=== PATIENT | female | born 1955 ===

== ENCOUNTER 2020-02-12 10:37 | Emergency (ER) | payer MEDICARE, MEDICAID, SELFPAY ==
[2020-02-12 10:50] VITALS: BP 105/61; BP 145/75; PULSE 67; PULSE 70; RESP 18; TEMP 37.1; O2SAT 100; O2SAT 97; BMI 76.7
--- NOTE | 2020-02-12 10:59 | ED_ITS ---
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) Duration: improved Location: generalized Migration: none Severity: moderate Relieving factors: none Exacerbating factors: none Associated symptoms: denies other symptoms Related Data Previous Rx's Medication Instructions Recorded cefuroxime axetil 500 mg PO BID 7 Days #14 tab 02/12/20 Allergies Allergy/AdvReac Type Severity Reaction Status Date / Time apple [Apple] Allergy Severe THROAT Verified 02/12/20 10:59 SWELLING pollen extracts [POLLEN] Allergy Intermediate SNEEZING Verified 02/12/20 10:59 COUGHING ALOT avocado [Avocado] AdvReac Unknown VOMITING Verified 02/12/20 10:59 kiwi AdvReac Unknown VOMITING Verified 02/12/20 10:59 [Kiwi (Actinidia Chinensis)] Review of Systems Review of Systems: Constitutional : No Weight loss, No Fever, No Chills, No Fatigue, No Malaise ENT/Mouth : No sore throat, No Rhinorrhea Eyes: No Eye Pain, No Swelling, No Redness Cardiovascular : No Chest Pain, No SOB, No Dyspnea on Exertion, No Orthopnea, No Edema, No Palpitations Respiratory : No Cough, No Sputum, No Wheezing Gastrointestinal : No Nausea, No Vomiting, No Diarrhea, No Constipation, No abdominal Pain, No Hematochezia, No Melena Genitourinary : No Dysuria, No Urinary Frequency, No Hematuria, Musculoskeletal : No joint pain, No Myalgias, No Joint Swelling Skin : No Skin Lesions, No rash Neuro : pos Weakness, No Numbness, No Dizziness, No Headache Psych : No Anxiety/Panic, No Depression Heme/Lymph: No Bruising, No Bleeding,No Lymphadenopathy Endocrine : No Polyuria, No Polydipsia All other systems reviewed and are negative [facility] Past Medical History Attestation statement: The following information was validated with the patient. Medical History (Updated 02/12/20 @ 14:34 by Elizabeth Young DO) Brain cancer DVT (deep venous thrombosis) HTN (hypertension) Seizure Surgical History (Updated 02/12/20 @ 11:10 by Elizabeth Young DO) H/O craniotomy Social History Social History (Updated 02/12/20 @ 11:10 by Elizabeth Young DO) Alcohol intake: never Smoking Status: Never smoker Use of substances other than those prescribed or required for medical reasons: No Advance Directives: No Advance Directives Information Provided: Yes Physical Exam Vital Signs: Vital Signs: Last Vital Signs Temp 98.8 F 02/12/20 10:50 Pulse 66 02/12/20 12:10 Resp 18 02/12/20 10:50 BP 109/76 02/12/20 12:10 Pulse Ox 100 02/12/20 10:50 Body Mass Index 76.7 Appearance: Alert. Oriented X3. No acute distress. Eyes: Pupils equal, round and reactive to light. ENT: Pharynx normal. Scars noted R side of head Neck: Normal inspection. Torticollis to R. CVS: Normal heart rate and rhythm. Pulses normal. Respiratory: No respiratory distress. Breath sounds normal. Abdomen: Soft and nontender. Skin: Skin warm and dry. Normal skin color. Normal skin turgor. Extremities: No lower extremity edema. No calf ttp Neuro: Oriented X 3. Mild chronic RUE and RLE weakness following her surgery per her reports. No sensory deficit. Course Course Course Narrative: patient with + orthostatic VS, will attempt to ambulate as well denied dizziness while standing has no new deficits she has very mild R sided UE and RLE weakness since her brain tumor per her, she notes this is not new, she also notes she suffers from torticollis since surgery overall the patient is much better, steady gait at her baseline, no complaints will give additional 500cc fluid + UA given ceftriaxone but no fevers, no vomiting, no WBC count MDM - Weakness MDM Narrative Medical decision making narrative: 64 yo female hx of HTN, DVT, brain cancer s/p chemo and radiation here with reported diffuse weakness will need labs, CT head for ICH, EKG, UA, dispo per results and findings. denies symptoms at this time. Lab Data Result diagrams: 02/12/20 11:34 02/12/20 11:34 Labs: Lab Results 02/12/20 02/12/20 02/12/20 Range/Units 11:22 11:34 11:34 WBC 7.2 (4.8-10.8) X10*3/uL RBC 4.92 (4.20-5.50) X10*6/uL Hgb 13.4 (12.0-16.0) g/dl Hct 42.4 (37-47) % MCV 86.2 (80-98) fL MCH 27.2 (27.0-33.0) pg MCHC 31.6 (31.0-35.0) g/dl RDW 13.4 (11.0-16.0) % Plt Count 275 (160-400) X10*3/uL MPV 10.0 (9.4-12.3) fL Immature Gran % (Auto) 0.1 (0.0-0.4) % Neut % (Auto) 68.3 (45-73) % Lymph % (Auto) 20.8 (20-40) % Haywood % (Auto) 7.7 (2-11) % Eos % (Auto) 2.5 (0-4) % Baso % (Auto) 0.6 (0-2) % Lymph # (Auto) 1.5 (1.2-4.9) X10*3/uL Haywood # (Auto) 0.6 (0.1-1.2) X10*3/uL Eos # (Auto) 0.2 (0.0-0.4) X10*3/uL Baso # (Auto) 0.0 (0.0-0.2) X10*3/uL Abs Immat Gran (auto) 0.01 (0.00-0.03) X10*3/uL Absolute Neuts (auto) 4.9 (2.0-8.3) X10*3/uL Absolute Nucleated RBC 0.000 (0.0-0.012) X10*3/uL Nucleated RBC % (auto) 0.0 (0.0-0.2) /100WBC PT 14.8 H (10.8-13.0) SEC INR 1.2 H (0.9-1.1) APTT 30.4 (24.1-38.0) SEC Hold Blue Top SEE NOTE Sodium (135-145) mmol/L Potassium (3.3-5.1) mmol/l Chloride (96-108) mmol/L Carbon Dioxide (22-29) mmol/L Anion Gap (12-20) BUN (9-16) mg/dL Creatinine (0.5-1.4) mg/dL Estim Creat Clear Calc Estimated GFR Random Glucose (60-115) mg/dL Calcium (8.4-10.2) mg/dL Magnesium (1.6-2.6) mg/dL Total Bilirubin (0.0-1.0) mg/dL Direct Bilirubin (0.0-0.5) mg/dL AST (5-31) U/L ALT (0-31) U/L Alkaline Phosphatase (39-117) U/L Troponin I High Sens (<3.5-17.0) ng/L Total Protein (6.5-8.0) g/dL Albumin (3.5-5.0) g/dL Urine Color Urine Appearance Urine pH (5.0-8.0) Ur Specific Somers (1.005-1.025) Urine Protein (NEG-TRACE) MG/DL Urine Glucose (UA) (NEG) MG/DL Urine Ketones (NEG) MG/DL Urine Blood (NEG) Urine Nitrite (NEG) Ur Leukocyte Esterase (NEG) Urine RBC (0) /HPF Urine WBC (0-4) /HPF Ur Squamous Epith Cells /LPF Urine Bacteria /LPF COVID-19 (JURGEN) Negative (Negative) COVID-19 Clin Com See Note 02/12/20 02/12/20 02/12/20 Range/Units 11:34 11:34 13:56 WBC (4.8-10.8) X10*3/uL RBC (4.20-5.50) X10*6/uL Hgb (12.0-16.0) g/dl Hct (37-47) % MCV (80-98) fL MCH (27.0-33.0) pg MCHC (31.0-35.0) g/dl RDW (11.0-16.0) % Plt Count (160-400) X10*3/uL MPV (9.4-12.3) fL Immature Gran % (Auto) (0.0-0.4) % Neut % (Auto) (45-73) % Lymph % (Auto) (20-40) % Haywood % (Auto) (2-11) % Eos % (Auto) (0-4) % Baso % (Auto) (0-2) % Lymph # (Auto) (1.2-4.9) X10*3/uL Haywood # (Auto) (0.1-1.2) X10*3/uL Eos # (Auto) (0.0-0.4) X10*3/uL Baso # (Auto) (0.0-0.2) X10*3/uL Abs Immat Gran (auto) (0.00-0.03) X10*3/uL Absolute Neuts (auto) (2.0-8.3) X10*3/uL Absolute Nucleated RBC (0.0-0.012) X10*3/uL Nucleated RBC % (auto) (0.0-0.2) /100WBC PT (10.8-13.0) SEC INR (0.9-1.1) APTT (24.1-38.0) SEC Hold Blue Top Sodium 142 (135-145) mmol/L Potassium 3.4 (3.3-5.1) mmol/l Chloride 102 (96-108) mmol/L Carbon Dioxide 35 H (22-29) mmol/L Anion Gap 8 L (12-20) BUN 11 (9-16) mg/dL Creatinine 0.82 (0.5-1.4) mg/dL Estim Creat Clear Calc 140.3 Estimated GFR > 60 Random Glucose 105 (60-115) mg/dL Calcium 8.7 (8.4-10.2) mg/dL Magnesium 2.1 (1.6-2.6) mg/dL Total Bilirubin 0.4 (0.0-1.0) mg/dL Direct Bilirubin 0.2 (0.0-0.5) mg/dL AST 13 (5-31) U/L ALT 10 (0-31) U/L Alkaline Phosphatase 75 (39-117) U/L Troponin I High Sens 3.8 (<3.5-17.0) ng/L Total Protein 6.4 L (6.5-8.0) g/dL Albumin 3.5 (3.5-5.0) g/dL Urine Color YELLOW Urine Appearance CLOUDY Urine pH 6.5 (5.0-8.0) Ur Specific Somers 1.015 (1.005-1.025) Urine Protein NEG (NEG-TRACE) MG/DL Urine Glucose (UA) NEG (NEG) MG/DL Urine Ketones NEG (NEG) MG/DL Urine Blood TRACE (NEG) Urine Nitrite POS H (NEG) Ur Leukocyte Esterase 3+ H (NEG) Urine RBC 1-4 (0) /HPF Urine WBC TNTC H (0-4) /HPF Ur Squamous Epith Cells 1+ /LPF Urine Bacteria 3+ /LPF COVID-19 (JURGEN) (Negative) COVID-19 Clin Com Discharge Plan Discharge Clinical Impression: Acute UTI, Orthostatic hypotension Patient Disposition: Home, Self-Care Instructions: Urinary Tract Infection in Women (ED), Hypotension (ED) Additional Instructions: return to ED for any worsening symptoms or concerns GIVEN DOSE OF IV ANTIBIOTICS IN ED PLEASE DO NOT GIVE ANTIBIOTICS UNTIL THE AM, ENCOURAGE FLUIDS OVER THE NEXT FEW DAYS Prescriptions: New cefuroxime axetil 500 mg tablet 500 mg PO BID 7 Days Qty: 14 RF: 0 Referrals: Physician,Unknown [Primary Care Provider] - 2 days (family doctor on Monday if not better)
--- NOTE | 2020-02-12 11:02 | XR_ITS ---
EXAMINATION: XR CHEST CLINICAL INFORMATION: Weakness COMPARISON: Previous chest x-ray June 2019 TECHNIQUE: Frontal view of the chest was obtained. FINDINGS: The cardiac and mediastinal contours are normal. The lungs are clear. There is no pleural effusion or pneumothorax. There are degenerative changes of the spine. XR/XR chest 1V IMPRESSION: Unremarkable examination.
--- NOTE | 2020-02-12 11:02 | CT_ITS ---
EXAMINATION: CT HEAD WITHOUT CONTRAST CLINICAL INFORMATION: Diffuse weakness. COMPARISON: CT brain 03/07/2019 TECHNIQUE: Contiguous axial imaging was performed from the skull base to vertex without intravenous administration of contrast. This CT examination was performed using dose optimization techniques as appropriate, variously including the following: *Automated exposure control *Adjustment of mA and/or kV according to patient size (this includes techniques or standardized protocols for targeted exams where dose is matched to indication/reason for exam; i.e. extremities or head) *Use of iterative reconstruction technique DLP: 719 mGy-cm FINDINGS: Defect with a right frontal lobe encephalomalacia from old ischemic is changes there are surgical richard in this region as well. There is mild anterior midline shift. There is subtle area of hypodensity in the left frontal lobe deep white matter in the periventricular region likely encephalomalacia as well. Small lacunar infarct visualized in the left basal ganglia. There is no acute intracranial bleed, edema or mass. No acute infarct seen either. There is ex vacuole dilatation of bilateral frontal horns lateral ventricle. The third ventricle is slightly prominent. The fourth ventricle appears normal. Bone windows reveal no calvarial abnormality. There is benign frontalis hyperostosis interna. There is no scalp soft tissue abnormality. Bilateral mastoid sinuses and bilateral paranasal sinuses are widely patent. CT/CT head/brain wo con IMPRESSION: Right frontal craniotomy changes with bifrontal lobe encephalomalacia greater than right with mild midline shift to the left. There is ex vacuole dilatation of frontal horns lateral ventricles right slightly larger than left. Small lacunar infarct left basal ganglia is stable. There is no acute intra-axial, acute infarct or edema.
[2020-02-12 11:41] LABS: Basophils Percent Auto 0.6 % (0-2); Eosinophils Absolute Auto 0.2 X10*3/uL (0.0-0.4); Eosinophils Percent Auto 2.5 % (0-4); Hematocrit 42.4 % (37-47); Hemoglobin 13.4 g/dl (12.0-16.0); Imm Gran Abs Auto 0.01 X10*3/uL (0.00-0.03); Imm Gran Pct Auto 0.1 % (0.0-0.4); Lymphocytes Absolute Auto 1.5 X10*3/uL (1.2-4.9); Lymphocytes Percent Auto 20.8 % (20-40); Mean Corpuscular HGB Conc 31.6 g/dl (31.0-35.0); Mean Corpuscular Hemoglobin 27.2 pg (27.0-33.0); Mean Corpuscular Volume 86.2 fL (80-98); Monocytes Absolute Auto 0.6 X10*3/uL (0.1-1.2); Monocytes Percent Auto 7.7 % (2-11); Neutrophils Absolute Auto 4.9 X10*3/uL (2.0-8.3); Neutrophils Percent Auto 68.3 % (45-73); Platelet Count 275 X10*3/uL (160-400); Red Blood Count 4.92 X10*6/uL (4.20-5.50); Red Cell Distribution Width 13.4 % (11.0-16.0); White Blood Count 7.2 X10*3/uL (4.8-10.8)
[2020-02-12 11:42] LABS: MANUAL DIFF FLAG NO
[2020-02-12 11:52] LABS: INTERNATIONAL NORM RATIO 1.2 (0.9-1.1); Prothrombin Time 14.8 SEC (10.8-13.0)
[2020-02-12 11:54] LABS: Partial Thromboplastin Time 30.4 SEC (24.1-38.0)
[2020-02-12 11:55] LABS: COVID-19 Test Negative (Negative); IDNOW Serial# 9DD0AD1C
[2020-02-12] MEDS: 0.9 % Sodium Chloride 500 ML IV ×2 (12:06→14:02)
[2020-02-12 12:09] VITALS: BP 114/72; BP 126/78; PULSE 63; PULSE 77
[2020-02-12 12:10] VITALS: BP 109/76; PULSE 66
[2020-02-12 12:16] LABS: Alanine Aminotransferase 10 U/L (0-31); Albumin Level 3.5 g/dL (3.5-5.0); Alkaline Phosphatase 75 U/L (39-117); Aspartate Amino Transferase 13 U/L (5-31); Bilirubin Direct 0.2 mg/dL (0.0-0.5); Bilirubin Total 0.4 mg/dL (0.0-1.0); Blood Urea Nitrogen 11 mg/dL (9-16); Calcium 8.7 mg/dL (8.4-10.2); Creatinine Clr Calc Pharmacy 140.3; Estimated Glomerular Filt Rate > 60; Glucose Random 105 mg/dL (60-115); Magnesium 2.1 mg/dL (1.6-2.6); Total Protein 6.4 g/dL (6.5-8.0)
--- NOTE | 2020-02-12 12:17 | PC.NURSE ---
Patient a&ox3, neuro intact, passed swallow eval, pt sinus omar 60s on kiln firer helper, vitals stable, pt iv inserted, labs drawn, covid swab performed, pt had cxr and ct scan, ivf hanging per order, pt aware we need urine, will continue to monitor.
[2020-02-12 12:20] LABS: Troponin-I High Sensitivity 3.8 ng/L (<3.5-17.0)
[2020-02-12 12:26] LABS: Anion Gap 8 (12-20); Carbon Dioxide 35 mmol/L (22-29); Chloride 102 mmol/L (96-108); Potassium 3.4 mmol/l (3.3-5.1); Sodium 142 mmol/L (135-145)
[2020-02-12 14:14] LABS: Glucose Urine UA NEG (NEG); Leukocyte Esterase Urine 3+ (NEG); Nitrite Urine POS (NEG); PH 6.5 (5.0-8.0); Specific Gravity - Urine 1.015 (1.005-1.025); Urine Blood TRACE (NEG); Urine Ketones NEG (NEG); Urine Protein NEG (NEG-TRACE)
[2020-02-12 14:15] LABS: Appearance Urine CLOUDY; Color Urine YELLOW
[2020-02-12 14:24] LABS: Bacteria Urine 3+ /LPF; Squamous Epithelial Cell Urine 1+ /LPF; WBC Urine TNTC /HPF (0-4)
[2020-02-12] MEDS: cefTRIAXone sodium 1 GM in 0.9 % Sodium Chloride 50 ML IV (14:33)
--- NOTE | 2020-02-12 14:39 | PC.NURSE ---
patients daughter was called and told mother would be ready to go in about 30 minutes, she will come to pick her up.
[2020-02-12 14:49] VITALS: BP 116/67; PULSE 75; RESP 18; TEMP 36.6; O2SAT 98
--- NOTE | 2020-02-12 14:50 | PC.NURSE ---
patient a&ox3, quality assurance monitor chassis nsr 70s, pt medicated per order, will continue to monitor.
== END 2020-02-12 15:50 | disposition home or self-care (01) ==
PROVIDERS: Emergency Provider Emergency Medicine
DX: N39.0 Urinary tract infection, site not specified (principal); I95.1 Orthostatic hypotension; Z20.828 Contact with and (suspected) exposure to other viral communicable diseases; Z85.841 Personal history of malignant neoplasm of brain; Z86.718 Personal history of other venous thrombosis and embolism
CPT/HCPCS: 36415; 70450; 71045; 80048; 80076; 81001; 83735; 84484; 85025; 85610; 85730; 87086; 87088; 87186; 87635; 96361; 96365; 99285; J0696

== ENCOUNTER 2020-02-16 10:19 | Emergency (ER) | payer MEDICARE, MEDICAID, SELFPAY ==
[2020-02-16 10:45] VITALS: BP 118/72; BP 122/62; PULSE 70; PULSE 84; RESP 17; TEMP 36.8; O2SAT 96; O2SAT 99; BMI 28.8
--- NOTE | 2020-02-16 11:19 | CT_ITS ---
EXAMINATION: CT CERVICAL SPINE WITHOUT CONTRAST CLINICAL INFORMATION: Fall, neck pain. COMPARISON: None TECHNIQUE: CT cervical spine 07/03/2019. This CT examination was performed using dose optimization techniques as appropriate, variously including the following: *Automated exposure control *Adjustment of mA and/or kV according to patient size (this includes techniques or standardized protocols for targeted exams where dose is matched to indication/reason for exam; i.e. extremities or head) *Use of iterative reconstruction technique DLP: 436 mGy-cm FINDINGS: Patient's head is rotated to the right side likely from spasm or torticollis. There is straightening of cervical lordosis. The vertebral heights and alignment appears preserved. The craniovertebral junction and the C1-C2 alignment is normal. No acute fracture, lytic as per sclerotic process seen. There is mild degenerative disc changes C4-C5 disc level with moderate ventral and posterior spondylosis at C4-C5 and C5-C6 disc levels resulting in bilateral moderate narrowing of neural foramina. There is mild posterior spondylosis C3-C4 disc level. No disc bulge, herniation or spinal stenosis seen. At C4-C5 and C5-C6 disc levels with mild bilateral narrowing of neural foramina from uncovertebral hypertrophic changes. Mild posterior spondylosis without spinal canal stenosis seen. At C5-C6 disc level there is mild posterior spondylosis without spinal canal stenosis. There is mild bilateral Neural foramina from uncovertebral hypertrophic changes. The C6-C7 and C7-T1 disc levels are unremarkable. The thyroid lobes are symmetric and normal. The prevertebral and paravertebral soft tissues are normal. The airway is are widely patent. CT/CT cervical spine wo con IMPRESSION: Right neck spasm or torticollis resulting in rotation of neck and head to the right side. There is no visible acute fracture or dislocation. There are degenerative disc changes C4-C5 and C5-C6 disc levels with moderate ventral and posterior spondylosis. Bilateral narrowing of neural foramina noted at this disc levels.
--- NOTE | 2020-02-16 11:19 | XR_ITS ---
EXAMINATION: XR FOOT, RIGHT XR ANKLE, RIGHT XR KNEE, RIGHT CLINICAL INFORMATION: Fall out of bed COMPARISON: Right knee radiographs 10/28/2018 TECHNIQUE: AP and oblique views of the right foot, AP and oblique views of the right ankle, lateral view of the right ankle and foot AP and crosstable lateral views of the right knee FINDINGS: Foot: There is no evidence of acute fracture. No evidence of subluxation. Mild joint space narrowing involving the interphalangeal joints. Soft tissues are unremarkable. Ankle: There is an acute oblique fracture involving the lateral malleolus. This is minimally displaced. The fracture line extends from slightly proximal to the distal tibial-fibular syndesmosis to the level of the syndesmosis. The syndesmosis does not appear to be widened and the ankle mortise is congruent. No evidence of subluxation. The distal tibia appears to be intact. There is surrounding soft tissue swelling. Mild vascular calcifications are noted. Knee: No additional fractures are seen more proximally in the tibia and fibula and distal femur. The knee joint is intact. No subluxation. Redemonstration of lateral and patellofemoral compartment osteoarthritis. No significant knee effusion is appreciated. Soft tissues are unremarkable. XR/XR ankle RT 2V IMPRESSION: Acute minimally displaced [place] B oblique fracture of the lateral malleolus. The distal tibial-fibular syndesmosis does not appear to be widened and the ankle mortise appears congruent on this nonweightbearing view. No evidence of acute fracture or malalignment involving the right foot and right knee. Degenerative changes in the right knee.
--- NOTE | 2020-02-16 11:19 | XR_ITS ---
EXAMINATION: XR FOOT, RIGHT XR ANKLE, RIGHT XR KNEE, RIGHT CLINICAL INFORMATION: Fall out of bed COMPARISON: Right knee radiographs 10/28/2018 TECHNIQUE: AP and oblique views of the right foot, AP and oblique views of the right ankle, lateral view of the right ankle and foot AP and crosstable lateral views of the right knee FINDINGS: Foot: There is no evidence of acute fracture. No evidence of subluxation. Mild joint space narrowing involving the interphalangeal joints. Soft tissues are unremarkable. Ankle: There is an acute oblique fracture involving the lateral malleolus. This is minimally displaced. The fracture line extends from slightly proximal to the distal tibial-fibular syndesmosis to the level of the syndesmosis. The syndesmosis does not appear to be widened and the ankle mortise is congruent. No evidence of subluxation. The distal tibia appears to be intact. There is surrounding soft tissue swelling. Mild vascular calcifications are noted. Knee: No additional fractures are seen more proximally in the tibia and fibula and distal femur. The knee joint is intact. No subluxation. Redemonstration of lateral and patellofemoral compartment osteoarthritis. No significant knee effusion is appreciated. Soft tissues are unremarkable. XR/XR foot RT min 3V IMPRESSION: Acute minimally displaced [place] B oblique fracture of the lateral malleolus. The distal tibial-fibular syndesmosis does not appear to be widened and the ankle mortise appears congruent on this nonweightbearing view. No evidence of acute fracture or malalignment involving the right foot and right knee. Degenerative changes in the right knee.
--- NOTE | 2020-02-16 11:22 | ED.FALL ---
HPI - Fall General Chief Complaint: Fall Stated Complaint: fell yesterday, right knee pain Time Seen by Provider: 02/16/20 11:18 Source: patient and EMS Mode of arrival: EMS History of Present Illness HPI Narrative: 64 yo female hx of HTN, DVT, brain cancer s/p chemo and radiation presenting to the ED complaining of fall out of bed yesterday on right side. States right ankle/foot pain. Admits got out of bed alone due to [employer] being in the kitchen and reports she didn't want to wait for the help. Denies head trauma or LOC. denies taking anticoagulation. Also reports neck pain. Denies lightheadedness/dizziness, CP/SOB, abdominal pain, nausea/vomiting, numbness/tingling, weakness. Denies symptoms prior to fall Related Data Previous Rx's Medication Instructions Recorded cefuroxime axetil 500 mg PO BID 7 Days #14 tab 02/12/20 hydrocodone-acetaminophen [[place]] 1 tab PO Q6H PRN 3 Days #9 tab 02/16/20 Allergies Allergy/AdvReac Type Severity Reaction Status Date / Time apple [Apple] Allergy Severe THROAT Verified 02/12/20 10:59 SWELLING pollen extracts [POLLEN] Allergy Intermediate SNEEZING Verified 02/12/20 10:59 COUGHING ALOT avocado [Avocado] AdvReac Unknown VOMITING Verified 02/12/20 10:59 kiwi AdvReac Unknown VOMITING Verified 02/12/20 10:59 [Kiwi (Actinidia Chinensis)] Review of Systems Review of Systems: Constitutional: No Weight loss, No Fever, No Chills Eyes: No Eye Pain, No Swelling, No Redness, No Foreign Body, No Vision Changes Cardiovascular: No Chest Pain, No SOB Respiratory: No Cough, No Dyspnea Gastrointestinal: No Nausea, No Vomiting, No Diarrhea, No Constipation, No Abdominal pain Genitourinary: No irregular bleeding, No Dysuria Musculoskeletal: +R foot pain, +neck pain, No Myalgias, No Joint Swelling Skin: No Skin Lesions, No rash Neuro: No Weakness, No Numbness, No Paresthesias, No Loss of Consciousness, No Dizziness, No Headache Yes all other systems are reviewed and are negative [facility] Past Medical History Attestation statement: The following information was validated with the patient. Medical History (Updated 02/16/20 @ 14:32 by BEVERLY Banks) Brain cancer DVT (deep venous thrombosis) HTN (hypertension) Seizure Surgical History (Updated 02/12/20 @ 11:10 by Elizabeth Young DO) H/O craniotomy Social History Social History (Updated 02/12/20 @ 11:10 by Elizabeth Young DO) Alcohol intake: never Smoking Status: Never smoker Use of substances other than those prescribed or required for medical reasons: No Advance Directives: No Advance Directives Information Provided: No Physical Exam Vital Signs: Vital Signs: Last Vital Signs Temp 98.4 F 02/16/20 13:15 Pulse 70 02/16/20 13:15 Resp 16 02/16/20 13:15 BP 132/68 02/16/20 13:15 Pulse Ox 99 02/16/20 13:15 Body Mass Index 28.8 Const: General: cooperative and healthy appearing Orientation/consciousness: patient oriented x3 Limitations: no limitations HENMT: Head: Yes normal to inspection Ears: hearing grossly normal bilaterally General nose exam: Normal external nose present Face and sinus: Yes normal facial exam Mouth: Normal oral and palatal mucosa present Throat: Yes posterior oropharynx normal Eyes: General: appearance normal, both eyes and all related structures Pupils: Equal, round and reactive pupils present EOM: EOMs intact bilaterally Neck: Other: + mid midline cervical spinous tenderness, + right-sided paraspinal MSK tenderness. No step-off or deformity appreciated. Chronic torticollis Neck: Yes normal visual inspection, Yes no meningeal signs and Yes trachea midline Resp: Effort & Inspection: normal respiratory effort Auscultation: clear to auscultation bilaterally Cardio: Rate: regular rate Heart sounds: S1 normal heart sound present and S2 normal heart sound present GI: Inspection: Yes normal to inspection Palpation (GI): Soft to palpation, nontender, no guarding and not rigid Back/Spine/Pelvis: Other: No midline thoracic/lumbar spinous tenderness Skin: Rashes: no rashes Wounds: no wounds Neuro: General: patient oriented x3, tone normal, moves all extremities, no meningeal signs, no focal motor deficits and CN's II-XI intact bilaterally Cranial nerves: Yes Equal, round and reactive pupils present Extrem: Other: Right knee with mild swelling, nontender. Limited complete flexion. Right ankle mild swelling and tenderness to palpation greater to lateral aspect. Neurovascular intact. Sensation intact to light touch Pelvis stable/hips nontender General: Yes normal to inspection Course Course Course Narrative: X-ray showing acute minimally displaced [place] B oblique fracture of the lateral malleolus. The distal tibial-fibular syndesmosis does not appear to be widened and the ankle mortise appears congruent on this nonweightbearing view >> will place patient in a posterior splint to be nonweightbearing to follow-up with orthopedics in a few days. Both patient and daughter report she has a wheelchair at home. Patient lives at home with and daughter, has 24 hour care, would like to go home. Does not want to go to snf C-spine CT: Right neck spasm or torticollis resulting in rotation of neck and head to the right side. There is no visible acute fracture or dislocation. Spoke to patient's daughter rojelio, informed of results and need for close follow-up with Orthopedics. She verbalized understanding MDM - Fall MDM Narrative Medical decision making narrative: 64 yo female hx of HTN, DVT, brain cancer s/p chemo and radiation here presenting to the ED complaining of right ankle/foot pain s/p fall out of bed yesterday. On exam VSS, NAD, a midline cervical spinous tenderness appreciated with paraspinal tenderness. Right ankle/foot with swelling/tenderness. No focal neuro deficits. Concern for fracture versus dislocation. Low concern for ACS/ICH Plan: Cervical spine CT, x-rays, orthostatics, reassess Discharge Plan Discharge Clinical Impression: Fracture of lateral malleolus Qualifiers: Encounter type: initial encounter Fracture type: closed Fracture alignment: displaced Laterality: right Qualified Code(s): S82.61XA - Displaced fracture of lateral malleolus of right fibula, initial encounter for closed fracture Fall Qualifiers: Encounter type: initial encounter Qualified Code(s): W19.XXXA - Unspecified fall, initial encounter Patient Disposition: Home, Self-Care Instructions: Ankle Fracture (ED) Additional Instructions: YOU HAVE BROKEN ANKLE. YOU WERE PLACED IN A SPLINT TODAY IN THE ED KEEP DRY AND CLEAN DO NOT BEAR ANY WEIGHT ON YOUR RIGHT LEG YOU NEED TO SEE THE ORTHOPEDIC SURGEON WITHIN THE NEXT 3-5 DAYS TAKE TYLENOL AROUND THE CLOCK, IN ADDITION ICE AND ELEVATE HER LEG NORCO AN OPIATE PAIN MEDICATION, TAKE ONLY WHEN PAIN IS SEVERE FOR THE NEXT 3 DAYS IF YOUR LEG BECOMES UNBEARABLE PAINFUL, TOES CHANGE COLOR, OR BECOME NUMB REMOVE THE SPLINT AND RETURN TO THE ED Prescriptions: New hydrocodone-acetaminophen [[place]cel[place]] 5-325 mg tablet 1 tab PO Q6H PRN (Reason: pain) 3 Days Qty: 9 RF: 0 No Action cefuroxime axetil 500 mg tablet 500 mg PO BID 7 Days Qty: 14 RF: 0 Referrals: Travon Herrera MD [Physician] - 3 days
--- NOTE | 2020-02-16 11:35 | XR_ITS ---
EXAMINATION: XR FOOT, RIGHT XR ANKLE, RIGHT XR KNEE, RIGHT CLINICAL INFORMATION: Fall out of bed COMPARISON: Right knee radiographs 10/28/2018 TECHNIQUE: AP and oblique views of the right foot, AP and oblique views of the right ankle, lateral view of the right ankle and foot AP and crosstable lateral views of the right knee FINDINGS: Foot: There is no evidence of acute fracture. No evidence of subluxation. Mild joint space narrowing involving the interphalangeal joints. Soft tissues are unremarkable. Ankle: There is an acute oblique fracture involving the lateral malleolus. This is minimally displaced. The fracture line extends from slightly proximal to the distal tibial-fibular syndesmosis to the level of the syndesmosis. The syndesmosis does not appear to be widened and the ankle mortise is congruent. No evidence of subluxation. The distal tibia appears to be intact. There is surrounding soft tissue swelling. Mild vascular calcifications are noted. Knee: No additional fractures are seen more proximally in the tibia and fibula and distal femur. The knee joint is intact. No subluxation. Redemonstration of lateral and patellofemoral compartment osteoarthritis. No significant knee effusion is appreciated. Soft tissues are unremarkable. XR/XR knee RT 2V IMPRESSION: Acute minimally displaced [place] B oblique fracture of the lateral malleolus. The distal tibial-fibular syndesmosis does not appear to be widened and the ankle mortise appears congruent on this nonweightbearing view. No evidence of acute fracture or malalignment involving the right foot and right knee. Degenerative changes in the right knee.
--- NOTE | 2020-02-16 13:10 | PC.NURSE ---
pt's daughter rojelio ([phone]) called [facility] [place] and was updated on pt status.
[2020-02-16 13:15] VITALS: BP 132/68; PULSE 70; RESP 16; TEMP 36.9; O2SAT 99
[2020-02-16] MEDS: Acetaminophen 325 MG TABLET 650 MG PO (13:31)
[2020-02-16] MEDS: oxyCODONE HCl Immed Release 5 MG TABLET PO (13:31)
--- NOTE | 2020-02-16 14:35 | PC.NURSE ---
5 inch fiberglass posterior leg splint. applied to right leg. +cms
[2020-02-16 14:48] VITALS: BP 130/67; PULSE 67; RESP 81; O2SAT 98
== END 2020-02-16 15:36 | disposition home or self-care (01) ==
PROVIDERS: Emergency Provider Emergency Medicine Emergency Medical Services
DX: S82.61XA Displaced fracture of lateral malleolus of right fibula, initial encounter for closed fracture (principal); M25.561 Pain in right knee; M54.2 Cervicalgia; W01.0XXA Fall on same level from slipping, tripping and stumbling without subsequent striking against object, initial encounter; Y93.9 Activity, unspecified; Y92.003 Bedroom of unspecified non-institutional (private) residence as the place of occurrence of the external cause; Y99.9 Unspecified external cause status; Z79.899 Other long term (current) drug therapy; Z86.718 Personal history of other venous thrombosis and embolism
CPT/HCPCS: 29505; 72125; 73560; 73600; 73630; 99284

== ENCOUNTER 2020-03-03 11:46 | Outpatient (REF) | payer MEDICARE, MEDICAID, SELFPAY ==
--- NOTE | 2020-03-03 14:24 | XR_ITS ---
EXAMINATION: XR ANKLE, RIGHT CLINICAL INFORMATION: Fracture COMPARISON: Previous x-ray 02/16/2020 TECHNIQUE: AP, lateral, and mortise views of the right ankle. FINDINGS: There is an oblique fracture of the distal shaft of fibula. There is minimal 2 mm lateral displacement of the lateral malleolus with respect to the more proximal shaft. This is unchanged. Fracture line appears unchanged. No periosteal reaction is seen. No other fracture is seen. The ankle mortise is normal. Soft tissues are normal. XR/XR ankle RT min 3V IMPRESSION: No change in the oblique fracture of the distal fibular shaft from previous exam.
== END 2020-03-03 11:47 | disposition home or self-care (01) ==
LOC: HO.HOSX 11:46
PROVIDERS: Visit Provider Physician Assistant
DX: S82.831A Other fracture of upper and lower end of right fibula, initial encounter for closed fracture (principal)
CPT/HCPCS: 73610; 99202

== ENCOUNTER 2020-04-01 08:54 | Outpatient (REF) | payer MEDICARE, MEDICAID, SELFPAY ==
--- NOTE | ~2020-04-01 | XR_ITS ---
EXAMINATION: XR ANKLE, RIGHT CLINICAL INFORMATION: Fracture COMPARISON: Previous x-ray 03/03/2020 TECHNIQUE: AP, lateral, and mortise views of the right ankle. FINDINGS: There is an oblique fracture of the distal shaft of the fibula. There is slight 2 mm lateral displacement of the lateral malleolus with respect to the more proximal shaft. Alignment is unchanged. Fracture line is still seen without evidence of healing. The ankle mortise is normal. There is soft tissue arterial calcification. Soft tissues are otherwise normal. XR/XR ankle RT min 3V IMPRESSION: No change in right distal fibular shaft fracture.
== END 2020-04-01 08:55 | disposition home or self-care (01) ==
LOC: HO.HOSX 08:54
PROVIDERS: Visit Provider Physician Assistant
DX: S82.401D Unspecified fracture of shaft of right fibula, subsequent encounter for closed fracture with routine healing (principal); X58.XXXD Exposure to other specified factors, subsequent encounter; I10 Essential (primary) hypertension; J30.1 Allergic rhinitis due to pollen; Z91.018 Allergy to other foods
CPT/HCPCS: 73610; 99212

== ENCOUNTER 2020-04-29 08:30 | Outpatient (REF) | payer MEDICARE, MEDICAID, SELFPAY ==
--- NOTE | ~2020-04-29 | XR_ITS ---
EXAMINATION: XR ANKLE, RIGHT CLINICAL INFORMATION: Fibular fracture. Follow-up COMPARISON: Radiographs right ankle 04/01/2020, 03/03/2020 TECHNIQUE: AP, lateral, and mortise views of the right ankle. FINDINGS: There is an oblique fracture distal fibula. Fracture lines are still visible. No change in alignment. No new fracture or destructive process. Ankle mortise is symmetric. XR/XR ankle RT min 3V IMPRESSION: No change in alignment distal fibular fracture. Fracture line still visible.
== END 2020-04-29 08:31 | disposition home or self-care (01) ==
LOC: HO.HOSX 08:30
PROVIDERS: Visit Provider Physician Assistant
DX: S82.61XD Displaced fracture of lateral malleolus of right fibula, subsequent encounter for closed fracture with routine healing (principal)
CPT/HCPCS: 73610; 99212

== ENCOUNTER 2020-05-11 14:18 | Outpatient (REF) | payer MEDICARE, MEDICAID, SELFPAY | END 2020-05-11 14:19 | disposition home or self-care (01) | LOC: HO.MAMMO 14:18 | DX: Z13.89 Encounter for screening for other disorder (principal) ==

== ENCOUNTER → 2020-05-12 12:52 | Outpatient (BNVA) | payer MEDICARE, MEDICAID, SELFPAY | PROVIDERS: PCP Hospitalist; Visit Provider Internal Medicine Pulmonary Disease | DX: G47.33 Obstructive sleep apnea (adult) (pediatric) (principal); G47.00 Insomnia, unspecified; Z99.89 Dependence on other enabling machines and devices | CPT/HCPCS: 99212 ==

== ENCOUNTER 2020-06-19 11:40 | Emergency (ER) | payer MEDICARE, MEDICAID, SELFPAY ==
[2020-06-19 12:37] VITALS: BP 109/64; PULSE 77; RESP 18; TEMP 37; O2SAT 98; BMI 32.3
[2020-06-19 14:52] VITALS: BP 107/65; PULSE 87; RESP 16; TEMP 36.3; O2SAT 99
[2020-06-19] MEDS: Lidocaine HCl 1 % MPF 5 ML VIAL SUBCUT (15:45)
--- NOTE | 2020-06-19 16:39 | ED.WOUNDLAC ---
HPI - Wound/Laceration General Chief Complaint: Wound/Laceration Stated Complaint: CYST Time Seen by Provider: 06/19/20 15:32 History of Present Illness HPI narrative: Patient complains of left pubic area abscess which had gotten swollen and then yesterday started draining and has since shrunk, no fever no chills Related Data Previous Rx's Medication Instructions Recorded amlodipine 5 mg tablet 5 mg PO DAILY 30 Days #30 tab 04/10/20 hydrochlorothiazide 25 mg tablet 25 mg PO DAILY 90 Days #90 tab 04/17/20 atorvastatin 40 mg tablet 40 mg PO DAILY 30 Days #30 tab 04/22/20 aspirin 81 mg tablet,delayed 81 mg PO DAILY #30 tab 05/06/20 release rivaroxaban 20 mg tablet 20 mg PO BEDTIME #30 tab 05/06/20 doxycycline hyclate 100 mg PO BID 7 Days #14 cap 06/19/20 Allergies Allergy/AdvReac Type Severity Reaction Status Date / Time apple [Apple] Allergy Severe THROAT Verified 06/19/20 12:37 SWELLING pollen extracts [POLLEN] Allergy Intermediate SNEEZING Verified 06/19/20 12:37 COUGHING ALOT kiwi AdvReac Intermediate VOMITING Verified 06/19/20 12:37 [Kiwi (Actinidia Chinensis)] avocado [Avocado] AdvReac Mild VOMITING Verified 06/19/20 12:37 Review of Systems Review of Systems: Left pubic area abscess Negatives are no fever no chills no dizziness no weakness no headache no chest pain no abdominal pain no dysuria no nausea or vomiting Yes all other systems are reviewed and are negative PMFSH Past Medical History Source: nursing notes reviewed Medical History Brain cancer DVT (deep venous thrombosis) HTN (hypertension) Seizure Surgical History H/O craniotomy Social History Social History Alcohol intake: never Smoking Status: Never smoker Advance Directives: No Advance Directives Information Provided: Yes Current occupation: right handed Physical Exam Vital Signs: Vital Signs: Last Vital Signs Temp 97.4 F 06/19/20 14:52 Pulse 87 06/19/20 14:52 Resp 16 06/19/20 14:52 BP 107/65 06/19/20 14:52 Pulse Ox 99 06/19/20 14:52 Body Mass Index 32.3 General appearance no distress, A&O x3 Head is normocephalic atraumatic The neck is supple Respiratory no distress Abdomen soft nontender Exam of the groin showed a small opening draining pus with some tenderness and induration, there is no significant surrounding erythema Extremities full range of motion x4 Course Course Course Narrative: Procedure note left pubic abscess Indurated area left pubic area with a small opening draining pus is anesthetized with 6 cc of 1% lidocaine, cleansed with Betadine A 1 cm incision with an 11 blade was created and loculations were probed and there was a discharge of some pus and packing was placed Patient tolerated this well and was discharged Discharge Plan Discharge Clinical Impression: Abscess Patient Disposition: Home, Self-Care Additional Instructions: I enlarged the opening which was draining some pus so it can fully drain and placed some packing Return in 2 days for wound check packing removal Return any time for fever, chills, worse pain and swelling, any worse condition or any concerns Prescriptions: New doxycycline hyclate 100 mg capsule 100 mg PO BID 7 Days Qty: 14 RF: 0 No Action amlodipine 5 mg tablet 5 mg PO DAILY 30 Days Qty: 30 RF: 0 hydrochlorothiazide 25 mg tablet 25 mg PO DAILY 90 Days Qty: 90 RF: 3 atorvastatin 40 mg tablet 40 mg PO DAILY 30 Days Qty: 30 RF: 5 rivaroxaban [Xarelto] 20 mg tablet 20 mg PO BEDTIME Qty: 30 RF: 2 aspirin 81 mg tablet,delayed release (DR/EC) 81 mg PO DAILY Qty: 30 RF: 2 Interventions: ED Discharge Assessment Last Done: 06/19/20 17:28 Discharge Date/Time: 06/19/20 16:45
== END 2020-06-19 16:45 | disposition home or self-care (01) ==
PROVIDERS: Emergency Provider Emergency Medicine; PCP Hospitalist
DX: L02.214 Cutaneous abscess of groin (principal); I10 Essential (primary) hypertension; Z86.718 Personal history of other venous thrombosis and embolism; Z85.841 Personal history of malignant neoplasm of brain
CPT/HCPCS: 10060; 99284

== ENCOUNTER 2020-07-06 10:39 | Emergency (ER) | payer MEDICARE, MEDICAID, SELFPAY ==
--- NOTE | ~2020-07-06 | CT_ITS ---
EXAMINATION: CT ANGIOGRAM OF THE CHEST WITH AND WITHOUT CONTRAST (CT PULMONARY ANGIOGRAM FOR PE) CLINICAL INFORMATION: Reason for Exam pt c fall c dizzines, dry cough and sob hx of cancer COMPARISON: Previous chest x-ray most recent January 2020 and chest CTA September 2018 TECHNIQUE: Prior to contrast administration, noncontrast localization images were obtained. Subsequently, multidetector volumetric imaging was performed from the thoracic inlet to below the diaphragms following the administration of 130 mL Omnipaque 350 intravenous contrast. No contrast reaction reported Sagittal, coronal, and MIP oblique sagittal reformatted images were obtained on the CT workstation, uploaded to PACS, and reviewed. This CT examination was performed using dose optimization techniques as appropriate, variously including the following: *Automated exposure control *Adjustment of mA and/or kV according to patient size (this includes techniques or standardized protocols for targeted exams where dose is matched to indication/reason for exam; i.e. extremities or head) *Use of iterative reconstruction technique Total exam dose-length product 1813 mGy-cm FINDINGS: QUALITY OF STUDY/CONTRAST BOLUS: Satisfactory. PULMONARY ARTERIES: No central or segmental pulmonary emboli. THORACIC AORTA: No aneurysm or dissection. LUNG: No focal consolidation, nodules or masses. PLEURA: No pleural effusion or pneumothorax. MEDIASTINUM: Normal heart size. No pericardial effusion. No hilar or mediastinal lymphadenopathy. No evidence of septal bowing or right heart strain. CHEST WALL/AXILLA: No axillary or internal mammary lymphadenopathy. OSSEOUS STRUCTURES: There is a small sclerotic lesion in the right side of sternum axial image 28 series 3 that is stable.. There are degenerative changes of the spine. UPPER ABDOMEN: Unremarkable. No reflux of contrast into the hepatic veins to suggest elevated right heart pressures. CT/CT angio chest PE protocol IMPRESSION: No evidence of pulmonary embolism. VTE: negative
--- NOTE | ~2020-07-06 | CT_ITS ---
EXAMINATION: CT BRAIN AND CT CERVICAL SPINE WITHOUT CONTRAST. CLINICAL INFORMATION: Status post fall with dizziness, dry cough and SOB. COMPARISON: CT brain 02/12/2020 TECHNIQUE: 5 minutes and axial and reformatted 2 mm thin sagittal and coronal images of brain were obtained. Subsequently axial 3 mm thin and reformatted 2 mm thin sagittal and coronal images of cervical spine were obtained. DLP [id number] FINDINGS: Brain: There is bilateral Midline frontal lobe encephalomalacia greater on the right than the left with underlying right frontal lobe craniotomy. No visible acute intra-axial, extra-axial bleed, masses or edema seen. There is no acute infarction in evolution. There are radiopaque richard in the right frontal lobe. The lateral ventricles are enlarged especially there is ex vacuole dilatation of both frontal horns lateral ventricle. There is mild perivesical hypodensity in both cerebral hemispheres especially both frontal lobes. Bone windows reveal right frontal craniotomy change. There is benign hyperostosis frontalis interna. There is normal aeration of bilateral paranasal sinuses. The mastoid air cells are well-aerated. The scalp soft tissues are normal. Cervical spine: There is reversal of cervical lordosis. There is moderate scoliosis. The vertebral heights and alignment is normal. There is moderate bridging osteophytes C4-C5, C5-C6 and C6-C7 disc levels with mild posterior spondylosis at C4-C5, C5-C6 disc level. No visible acute fracture or dislocation seen. There is no lytic process. The craniovertebral junction is normal. There is moderate C1-C2 degenerative spondylosis. The prevertebral and paravertebral soft tissues are normal. 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 There is a right frontotemporal craniotomy noted. Bifrontal horns of lateral ventricle ex vacuole dilatation. No acute intracranial bleed or acute infarct seen. There is chronic small vessel ischemic changes in both cerebral hemispheres, stable. Moderate scoliosis cervical spine with degenerative disc changes as described above. No visible acute fracture or dislocation seen.
[2020-07-06 11:04] VITALS: BP 123/44; PULSE 90; RESP 18; TEMP 36.5; O2SAT 98; BMI 26.6
[2020-07-06 14:00] VITALS: BP 129/63; PULSE 77; RESP 18; O2SAT 97
[2020-07-06 15:04] LABS: Basophils Absolute Auto 0.1 X10*3/uL (0.0-0.2); Basophils Percent Auto 0.4 % (0-2); Eosinophils Absolute Auto 0.1 X10*3/uL (0.0-0.4); Eosinophils Percent Auto 0.7 % (0-4); Hematocrit 44.2 % (37-47); Hemoglobin 13.8 g/dl (12.0-16.0); Imm Gran Abs Auto 0.02 X10*3/uL (0.00-0.03); Imm Gran Pct Auto 0.2 % (0.0-0.4); Lymphocytes Absolute Auto 2.2 X10*3/uL (1.2-4.9); Lymphocytes Percent Auto 18.7 % (20-40); MANUAL DIFF FLAG NO; Mean Corpuscular HGB Conc 31.2 g/dl (31.0-35.0); Mean Corpuscular Hemoglobin 26.6 pg (27.0-33.0); Mean Corpuscular Volume 85.2 fL (80-98); Mean Platelet Volume 9.9 fL (9.4-12.3); Monocytes Absolute Auto 0.8 X10*3/uL (0.1-1.2); Monocytes Percent Auto 7.1 % (2-11); Neutrophils Absolute Auto 8.4 X10*3/uL (2.0-8.3); Neutrophils Percent Auto 72.9 % (45-73); Platelet Count 371 X10*3/uL (160-400); Red Blood Count 5.19 X10*6/uL (4.20-5.50); Red Cell Distribution Width 14.1 % (11.0-16.0); White Blood Count 11.5 X10*3/uL (4.8-10.8)
[2020-07-06 15:10] LABS: INTERNATIONAL NORM RATIO 2.8 (0.9-1.1); Prothrombin Time 33.2 SEC (10.8-13.0)
[2020-07-06 15:32] LABS: Alanine Aminotransferase 18 U/L (0-31); Alkaline Phosphatase 89 U/L (39-117); Anion Gap 15 (12-20); Aspartate Amino Transferase 15 U/L (5-31); Bilirubin Total 0.4 mg/dL (0.0-1.0); Blood Urea Nitrogen 11 mg/dL (9-16); Calcium 9.6 mg/dL (8.4-10.2); Carbon Dioxide 30 mmol/L (22-29); Chloride 103 mmol/L (96-108); Creatinine Clr Calc Pharmacy 74.3; Estimated Glomerular Filt Rate > 60; Glucose Random 109 mg/dL (60-115); Magnesium 2.1 mg/dL (1.6-2.6); Potassium 3.6 mmol/L (3.3-5.1); Sodium 144 mmol/L (135-145); Total Protein 7.4 g/dL (6.5-8.0)
[2020-07-06 15:40] LABS: Troponin-I High Sensitivity < 3.5 ng/L (<3.5-17.0)
[2020-07-06 15:53] LABS: Influenza A PCR NEGATIVE (Negative); Influenza B PCR NEGATIVE (Negative); Resp Syncy Virus RNA Qual PCR NEGATIVE (Negative); SARS COV2 PCR INHOUSE NEGATIVE (Negative)
--- NOTE | 2020-07-06 16:08 | ED_ITS ---
HPI - General Adult General Chief complaint: Head Injury Stated complaint: FALL - HEAD/NECK PAIN Time Seen by Provider: 07/06/20 14:14 Source: patient and other (Caregiver LOCOMOTIVE OPERATOR HELPER at bedside) Mode of arrival: ambulatory Limitations: no limitations History of Present Illness HPI narrative: 64-year-old female with a past medical history of head rotated to the right from spasm/torticollis, hypertension, DVT, brain cancer status post chemo radiation presenting to the ED with complaints of a fall last night after she attempted to get up out of bed by herself with head injury no LOC or prolonged down time. She reports that she was having dizziness prior to the fall and she usually never has dizziness. Also reports that she has noted she has been having a dry cough and shortness of breath over the past few days. She reports she is currently on Xarelto 20 mg daily and is taking as prescribed. She denies any dizziness at this time, lightheadedness, headaches, change in vision, nausea/vomiting, chest pain, dyspnea on exertion, orthopnea, palpitations, abdominal pain, back pain, black or bloody stools, diarrhea or constipation, hematuria, dysuria, any other injuries complaints or concerns at this time. Denies recent travel or sick contacts. LOCOMOTIVE OPERATOR HELPER at bedside reports that she is at baseline. Related Data Previous Rx's Medication Instructions Recorded amlodipine 5 mg tablet 5 mg PO DAILY 30 Days #30 tab 04/10/20 hydrochlorothiazide 25 mg tablet 25 mg PO DAILY 90 Days #90 tab 04/17/20 atorvastatin 40 mg tablet 40 mg PO DAILY 30 Days #30 tab 04/22/20 aspirin 81 mg tablet,delayed 81 mg PO DAILY #30 tab 05/06/20 release rivaroxaban 20 mg tablet 20 mg PO BEDTIME #30 tab 05/06/20 doxycycline hyclate 100 mg PO BID 7 Days #14 cap 06/19/20 Allergies Allergy/AdvReac Type Severity Reaction Status Date / Time apple [Apple] Allergy Severe THROAT Verified 07/06/20 11:04 SWELLING pollen extracts [POLLEN] Allergy Intermediate SNEEZING Verified 07/06/20 11:04 COUGHING ALOT kiwi AdvReac Intermediate VOMITING Verified 07/06/20 11:04 [Kiwi (Actinidia Chinensis)] avocado [Avocado] AdvReac Mild VOMITING Verified 07/06/20 11:04 Review of Systems Review of Systems: Constitutional : No Fever, No Chills, No Night Sweats, No Fatigue, No Malaise ENT/Mouth : No Ear Pain, No Nasal Congestion, No Sinus Pain, No sore throat, No Rhinorrhea Eyes: No Eye Pain, No Swelling, No Redness, No Foreign Body, No Discharge, No Vision Changes Cardiovascular : Positive shortness of breath, No Chest Pain, No Dyspnea on Exertion, No Orthopnea, No Palpitations Respiratory : Positive Cough, No Sputum, No Wheezing, No Dyspnea Gastrointestinal : No Nausea, No Vomiting, No Diarrhea, No Constipation, No abdominal Pain, No Hematochezia, No Melena Genitourinary : No Dysuria, No Urinary Frequency, No Urinary Incontinence, No Urgency, No Flank Pain Musculoskeletal : No joint pain, No Myalgias Skin : No lacerations Neuro : Positive dizziness with fall with head injury, No Focal weakness, no general weakness, No Numbness, No Paresthesias, No Loss of Consciousness, No Headache Yes all other systems are reviewed and are negative [facility] Past Medical History Attestation statement: The following information was validated with the patient. Medical History Brain cancer DVT (deep venous thrombosis) HTN (hypertension) Seizure Stroke Surgical History H/O craniotomy Social History Social History Alcohol intake: never Smoking Status: Never smoker Advance Directives: No Advance Directives Information Provided: No Current occupation: right handed Physical Exam Vital Signs: Vital Signs: Last Vital Signs Temp 97.7 F 07/06/20 11:04 Pulse 72 07/06/20 16:48 Resp 17 07/06/20 16:48 BP 130/71 07/06/20 16:48 Pulse Ox 100 07/06/20 16:48 Body Mass Index 26.6 Vital signs have been reviewed as normal and appeared to be correct. Blood pressure normal. Heart rate normal. Respiration rate normal. Temperature normal. Oxygen saturation normal. Appearance: Alert. Oriented X3. No acute distress. Head: Normal external exam. Normocephalic. Atraumatic. Able to rotate head bilaterally. Eyes: PERRLA. EOMI. No nystagmus noted. Conjunctiva and sclera normal. Eyelids normal. Corneal reflex normal. ENT: EAC normal. TM's Normal. Hearing normal. Pharynx normal. Uvula midline. tongue midline. Moist mucous membranes. No trismus noted. No drooling noted. No muffled voice noted. No nystagmus noted. Neck: Patient's neck is tilted to the right most likely related to a muscle spasm/torticollis although at baseline per patient and LOCOMOTIVE OPERATOR HELPER at bedside. The rest of the neck exam has Normal inspection. Neck supple. FROM. No adenopathy. Trachea midline. Thyroid Normal. No meningeal signs. No neck mass noted. No midline cervical tenderness step-offs or deformities noted. No rashes/lesion/induration/ecchymosis/abrasion/lacerations or signs infection noted. CVS: Normal heart rate and rhythm. Heart sound normal. No murmurs noted. Pulses normal throughout. Respiratory: No respiratory distress. Painless inspiration. Breath sounds normal. No wheezes/rales/rhonchi noted. Chest nontender. No accessory muscle usage noted or decreased air movement noted. Abdomen: Soft and nontender. Bowel sounds normal in all 4 quadrants. No distention noted. No organomegaly noted. No visible injury noted. Back: No CVA tenderness. Full range of motion noted. Skin: Skin warm and dry. Normal skin color. Normal skin turgor. No rashes/lesions/lacerations noted. Extremities: No lower extremity edema. No calf tenderness noted. Extremities exhibit normal range of motion. Extremities nontender. Able to shrug shoulders bilaterally and keep up against resistance. Neuro: Oriented X 3. No motor deficit. No sensory deficit. Reflexes normal. Moving all extremities. No focal motor deficits. Cranial nerves II-XI intact bilaterally. Facial strength normal. Normal cognition. Speech normal. Gait normal. Strength 5/5 throughout. No pronator drift. No tremor noted. No fasciculations noted. No rigidity noted. Muscle tone normal throughout. No asterixis noted. [id number] test normal. Heel to cardenas test normal. Tandem gait normal. Does not sway with eyes open. Romberg test negative. Rapid alternating movement upper extremity normal. Rapid alternating movement lower extremity normal. Hand drop from overhead Misses face. NIHSS score 0. Course Course Course Narrative: 17:30pm - labs reviewed and patient with an elevated white blood cell count at 11,000. Otherwise all other labs appear to be within normal limits. COVID/RSV/flu negative. CT scan of brain/local spine and CT of chest revealed chronic changes no acute processes and negative for PE. EKG is sinus rhythm with premature atrial complexes with a ventricular rate of 71 with normal ND interval normal QRS duration normal QT/QTC interval. No acute ischemic changes are noted. - therefore at this time it is safe to discharge the patient. Will DC home with instructions return if any new worsening symptoms continue taking her medications as previously prescribed and to follow up with primary care provider. Patient and LOCOMOTIVE OPERATOR HELPER at bedside understand agree with this plan. Medical Decision Making MDM Narrative Medical decision making narrative: 14:22pm - 64-year-old female with a past medical history of head rotated to the right from spasm/torticollis, hypertension, DVT, brain cancer status post chemo radiation presenting to the ED with complaints of a fall last night after she attempted to get up out of bed by herself with head injury no LOC or prolonged down time. Although had prior dizziness before the fall. Also admits to shortness of breath and cough over the past few days. On Xarelto 20 mg daily. Denies any other symptom complaints or concerns at this time. LOCOMOTIVE OPERATOR HELPER at bedside reports she is at baseline. Normal steady gait. NIHSS score 0. No tPA indicated as patient is already on blood thinner and has non disabling symptoms and is at baseline per patient and LOCOMOTIVE OPERATOR HELPER at bedside. - Plan: Labs, EKG, CT scan of brain/cervical spine, CT of chest for PE then re- evaluate. Medical Records Medical records reviewed: Yes I reviewed the patient's medical records. Lab Data Lab results reviewed: Yes I reviewed the patient's lab results. Result diagrams: 07/06/20 14:53 07/06/20 14:54 Labs: Lab Results 07/06/20 07/06/20 07/06/20 Range/Units 14:53 14:53 14:53 WBC 11.5 H (4.8-10.8) X10*3/uL RBC 5.19 (4.20-5.50) X10*6/uL Hgb 13.8 (12.0-16.0) g/dl Hct 44.2 (37-47) % MCV 85.2 (80-98) fL MCH 26.6 L (27.0-33.0) pg MCHC 31.2 (31.0-35.0) g/dl RDW 14.1 (11.0-16.0) % Plt Count 371 D (160-400) X10*3/uL MPV 9.9 (9.4-12.3) fL Immature Gran % (Auto) 0.2 (0.0-0.4) % Neut % (Auto) 72.9 (45-73) % Lymph % (Auto) 18.7 L (20-40) % [place] % (Auto) 7.1 (2-11) % Eos % (Auto) 0.7 (0-4) % Baso % (Auto) 0.4 (0-2) % Lymph # (Auto) 2.2 (1.2-4.9) X10*3/uL [place] # (Auto) 0.8 (0.1-1.2) X10*3/uL Eos # (Auto) 0.1 (0.0-0.4) X10*3/uL Baso # (Auto) 0.1 (0.0-0.2) X10*3/uL Abs Immat Gran (auto) 0.02 (0.00-0.03) X10*3/uL Absolute Neuts (auto) 8.4 H (2.0-8.3) X10*3/uL Absolute Nucleated RBC 0.000 (0.0-0.012) X10*3/uL Nucleated RBC % (auto) 0.0 (0.0-0.2) /100WBC PT 33.2 H D (10.8-13.0) SEC INR 2.8 H (0.9-1.1) Sodium (135-145) mmol/L Potassium (3.3-5.1) mmol/L Chloride (96-108) mmol/L Carbon Dioxide (22-29) mmol/L Anion Gap (12-20) BUN (9-16) mg/dL Creatinine (0.5-1.4) mg/dL Estim Creat Clear Calc Estimated GFR Random Glucose (60-115) mg/dL Calcium (8.4-10.2) mg/dL Magnesium (1.6-2.6) mg/dL Total Bilirubin (0.0-1.0) mg/dL AST (5-31) U/L ALT (0-31) U/L Alkaline Phosphatase (39-117) U/L Troponin I High Sens < 3.5 (<3.5-17.0) ng/L Total Protein (6.5-8.0) g/dL Albumin (3.5-5.0) g/dL Coronavirus (PCR) (Negative) Influenza Type A (PCR) (Negative) Influenza Type B (PCR) (Negative) RSV RNA Qual (PCR) (Negative) 07/06/20 07/06/20 Range/Units 14:53 14:54 WBC (4.8-10.8) X10*3/uL RBC (4.20-5.50) X10*6/uL Hgb (12.0-16.0) g/dl Hct (37-47) % MCV (80-98) fL MCH (27.0-33.0) pg MCHC (31.0-35.0) g/dl RDW (11.0-16.0) % Plt Count (160-400) X10*3/uL MPV (9.4-12.3) fL Immature Gran % (Auto) (0.0-0.4) % Neut % (Auto) (45-73) % Lymph % (Auto) (20-40) % [place] % (Auto) (2-11) % Eos % (Auto) (0-4) % Baso % (Auto) (0-2) % Lymph # (Auto) (1.2-4.9) X10*3/uL [place] # (Auto) (0.1-1.2) X10*3/uL Eos # (Auto) (0.0-0.4) X10*3/uL Baso # (Auto) (0.0-0.2) X10*3/uL Abs Immat Gran (auto) (0.00-0.03) X10*3/uL Absolute Neuts (auto) (2.0-8.3) X10*3/uL Absolute Nucleated RBC (0.0-0.012) X10*3/uL Nucleated RBC % (auto) (0.0-0.2) /100WBC PT (10.8-13.0) SEC INR (0.9-1.1) Sodium 144 (135-145) mmol/L Potassium 3.6 (3.3-5.1) mmol/L Chloride 103 (96-108) mmol/L Carbon Dioxide 30 H (22-29) mmol/L Anion Gap 15 (12-20) BUN 11 (9-16) mg/dL Creatinine 0.77 (0.5-1.4) mg/dL Estim Creat Clear Calc 74.3 Estimated GFR > 60 Random Glucose 109 (60-115) mg/dL Calcium 9.6 D (8.4-10.2) mg/dL Magnesium 2.1 (1.6-2.6) mg/dL Total Bilirubin 0.4 (0.0-1.0) mg/dL AST 15 (5-31) U/L ALT 18 (0-31) U/L Alkaline Phosphatase 89 (39-117) U/L Troponin I High Sens (<3.5-17.0) ng/L Total Protein 7.4 (6.5-8.0) g/dL Albumin 4.0 (3.5-5.0) g/dL Coronavirus (PCR) NEGATIVE (Negative) Influenza Type A (PCR) NEGATIVE (Negative) Influenza Type B (PCR) NEGATIVE (Negative) RSV RNA Qual (PCR) NEGATIVE (Negative) Imaging Data CT scan of brain without contrast: Attestation: I personally reviewed and interpreted this imaging study as follows: Radiologist's impression: IMPRESSION: 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 There is a right frontotemporal craniotomy noted. Bifrontal horns of lateral ventricle ex vacuole dilatation. No acute intracranial bleed or acute infarct seen. There is chronic small vessel ischemic changes in both cerebral hemispheres, stable. Moderate scoliosis cervical spine with degenerative disc changes as described above. No visible acute fracture or dislocation seen. CTA of chest for PE: Attestation: I personally reviewed and interpreted this imaging study as follows: Radiologist's impression: FINDINGS: QUALITY OF STUDY/CONTRAST BOLUS: Satisfactory. PULMONARY ARTERIES: No central or segmental pulmonary emboli. THORACIC AORTA: No aneurysm or dissection. LUNG: No focal consolidation, nodules or masses. PLEURA: No pleural effusion or pneumothorax. MEDIASTINUM: Normal heart size. No pericardial effusion. No hilar or mediastinal lymphadenopathy. No evidence of septal bowing or right heart strain. CHEST WALL/AXILLA: No axillary or internal mammary lymphadenopathy. OSSEOUS STRUCTURES: There is a small sclerotic lesion in the right side of sternum axial image 28 series 3 that is stable.. There are degenerative changes of the spine. UPPER ABDOMEN: Unremarkable. No reflux of contrast into the hepatic veins to suggest elevated right heart pressures. CT/CT angio chest PE protocol IMPRESSION: No evidence of pulmonary embolism. VTE: negative CT cervical spine without contrast: Attestation: I personally reviewed and interpreted this imaging study as follows: Radiologist's impression: FINDINGS: Brain: There is bilateral Midline frontal lobe encephalomalacia greater on the right than the left with underlying right frontal lobe craniotomy. No visible acute intra-axial, extra-axial bleed, masses or edema seen. There is no acute infarction in evolution. There are radiopaque richard in the right frontal lobe. The lateral ventricles are enlarged especially there is ex vacuole dilatation of both frontal horns lateral ventricle. There is mild perivesical hypodensity in both cerebral hemispheres especially both frontal lobes. Bone windows reveal right frontal craniotomy change. There is benign hyperostosis frontalis interna. There is normal aeration of bilateral paranasal sinuses. The mastoid air cells are well-aerated. The scalp soft tissues are normal. Cervical spine: There is reversal of cervical lordosis. There is moderate scoliosis. The vertebral heights and alignment is normal. There is moderate bridging osteophytes C4-C5, C5-C6 and C6-C7 disc levels with mild posterior spondylosis at C4-C5, C5-C6 disc level. No visible acute fracture or dislocation seen. There is no lytic process. The craniovertebral junction is normal. There is moderate C1-C2 degenerative spondylosis. The prevertebral and paravertebral soft tissues are normal. 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 There is a right frontotemporal craniotomy noted. Bifrontal horns of lateral ventricle ex vacuole dilatation. No acute intracranial bleed or acute infarct seen. There is chronic small vessel ischemic changes in both cerebral hemispheres, stable. Moderate scoliosis cervical spine with degenerative disc changes as described above. No visible acute fracture or dislocation seen. ECG Data Attestation: I personally reviewed and interpreted this ECG as follows: Interpretation: Normal sinus rhythm with premature atrial complexes with a ventricular rate of 71 with a normal ND interval normal QRS duration normal QT/QTC interval. No acute ischemic changes are noted. Similar compared to prior EKG on 03/06/2019. Critical Care Time Critical Care Time Critical Care Time: Yes Total Critical Care Time: 60 Attestation: I personally attest to this time spent taking care of the patient Discharge Plan Discharge Clinical Impression: Fall, Head injury, Cervical strain Patient Disposition: Home, Self-Care Instructions: Fall Prevention for Older Adults (ED) Prescriptions: No Action amlodipine 5 mg tablet 5 mg PO DAILY 30 Days Qty: 30 RF: 0 hydrochlorothiazide 25 mg tablet 25 mg PO DAILY 90 Days Qty: 90 RF: 3 atorvastatin 40 mg tablet 40 mg PO DAILY 30 Days Qty: 30 RF: 5 rivaroxaban [Xarelto] 20 mg tablet 20 mg PO BEDTIME Qty: 30 RF: 2 aspirin 81 mg tablet,delayed release (DR/EC) 81 mg PO DAILY Qty: 30 RF: 2 doxycycline hyclate 100 mg capsule 100 mg PO BID 7 Days Qty: 14 RF: 0 Referrals: Nicole Denny NP [Primary Care Provider] - 2 days Print Language: Kyrgyz
--- NOTE | 2020-07-06 16:14 | ECG_ITS ---
Test Reason : dizziness/sob/cough Blood Pressure : / mmHG Vent. Rate : 071 BPM Atrial Rate : 071 BPM P-R Int : 182 ms QRS Dur : 080 ms QT Int : 386 ms P-R-T Axes : 028 030 047 degrees QTc Int : 419 ms Sinus rhythm with Premature atrial complexes Otherwise normal ECG When compared with ECG of 06-MAR-2019 23:49, Fusion complexes are no longer Present Premature atrial complexes are now Present Vent. rate has decreased BY 39 BPM Nonspecific T wave abnormality no longer evident in Lateral leads Referred By: Georgia Najera Electronically Signed By:MARY THRASHER MD
[2020-07-06] MEDS: iohexoL 350 MG/ML 100 ML INFUS..BTL IV (16:17)
[2020-07-06 16:48] VITALS: BP 130/71; PULSE 72; RESP 17; O2SAT 100
[2020-07-06] MEDS: Butalb/Acetamin/Caff 50/325/40 TABLET 2 TAB PO (18:22)
== END 2020-07-06 18:36 | disposition home or self-care (01) ==
PROVIDERS: Physician Assistant Medical; Emergency Provider Emergency Medicine; PCP Hospitalist
DX: S09.90XA Unspecified injury of head, initial encounter (principal); S16.1XXA Strain of muscle, fascia and tendon at neck level, initial encounter; M54.2 Cervicalgia; G44.309 Post-traumatic headache, unspecified, not intractable; I10 Essential (primary) hypertension; W01.0XXA Fall on same level from slipping, tripping and stumbling without subsequent striking against object, initial encounter; Y93.9 Activity, unspecified; Y92.9 Unspecified place or not applicable; Y99.9 Unspecified external cause status; Z20.822 Contact with and (suspected) exposure to COVID-19; Z79.899 Other long term (current) drug therapy
CPT/HCPCS: 0241U; 36415; 70450; 71275; 72125; 80053; 83735; 84484; 85025; 85610; 93005; 99284; Q9967

== ENCOUNTER 2020-07-19 19:07 | Emergency (ER) | payer MEDICARE, MEDICAID, SELFPAY ==
[2020-07-19 19:16] VITALS: BP 136/79; PULSE 77; RESP 16; TEMP 36.4; O2SAT 100; BMI 31.2
--- NOTE | 2020-07-19 19:54 | ED.HA ---
HPI - Headache General Chief Complaint: Headache Stated Complaint: headache Time Seen by Provider: 07/19/20 19:49 Source: patient Mode of arrival: wheelchair Limitations: physical limitation History of Present Illness HPI Narrative: 64-year-old female with a past medical history of head rotated to the right from spasm/torticollis, hypertension, DVT, brain cancer status post chemo radiation presenting to the ED with headache and bleeding from her cyst in the upper left groin. She does not describe any fevers, chills, nausea, vomiting, diarrhea, constipation, chest pain or pressure, palpitations, shortness breath, shortness breath on exertion, abdominal pain, abdominal distention, dysuria, hematuria, or any other concerning symptoms. MD elicited complaint: headache and migraine Pertinent past history: migraines and other (History of brain cancer) Onset (ago): month(s) Onset description: gradually Location: diffuse Severity: moderate Quality & Timing: throbbing and similar to previous headaches Exacerbating factors: movement of head/neck Relieving factors: nothing Context: occurred at rest Treatments prior to arrival: acetaminophen and ibuprofen Related Data Home Medications Medication Instructions Recorded Confirmed levetiracetam 100 mg/mL oral 1,000 mg PO TID 07/07/20 solution loratadine 10 mg tablet 10 mg PO DAILY 07/07/20 Previous Rx's Medication Instructions Recorded amlodipine 5 mg tablet 5 mg PO DAILY 30 Days #30 tab 04/10/20 hydrochlorothiazide 25 mg tablet 25 mg PO DAILY 90 Days #90 tab 04/17/20 atorvastatin 40 mg tablet 40 mg PO DAILY 30 Days #30 tab 04/22/20 aspirin 81 mg tablet,delayed 81 mg PO DAILY #30 tab 05/06/20 release rivaroxaban 20 mg tablet 20 mg PO BEDTIME #30 tab 05/06/20 vttzsapiwe-fqqumzlryhkpp-oxzv 1 cap PO Q4-6H PRN #14 cap 07/19/20 [Fioricet] cephalexin 500 mg PO Q8H 10 Days #30 cap 07/19/20 sulfamethoxazole-trimethoprim 1 tab PO Q12H 7 Days #14 tab 07/19/20 [Bactrim DS] Allergies Allergy/AdvReac Type Severity Reaction Status Date / Time apple [Apple] Allergy Severe THROAT Verified 07/19/20 19:16 SWELLING pollen extracts [POLLEN] Allergy Intermediate SNEEZING Verified 07/19/20 19:16 COUGHING ALOT kiwi AdvReac Intermediate VOMITING Verified 07/19/20 19:16 [Kiwi (Actinidia Chinensis)] avocado [Avocado] AdvReac Mild VOMITING Verified 07/19/20 19:16 Review of Systems Review of Systems: Constitutional: Positive headache, No Fever, No Chills ENT/Mouth: No Ear Pain, No Hoarseness, No sore throat Eyes: No Eye Pain, No Swelling, No Redness, No Foreign Body Cardiovascular: No Chest Pain, No SOB Respiratory: No Cough, No Dyspnea Gastrointestinal: No Nausea, No Vomiting, No Diarrhea, No abdominal Pain Genitourinary: No Dysuria, No Hematuria Musculoskeletal: positive chronic neck pain, No Myalgias, No Joint Swelling Skin: Positive abscess to the left upper groin, No Skin lacerations, No rash Neuro: No Weakness, No Numbness, No Paresthesias, No Loss of Consciousness, No Dizziness, No Headache Psych: No Anxiety/Panic, No Depression Heme/Lymph: no easy bruising, no Lymphadenopathy Endocrine: No Polyuria, No Polydipsia Yes all other systems are reviewed and are negative [facility] Past Medical History Attestation statement: The following information was validated with the patient. Source: old records reviewed Medical History Brain cancer DVT (deep venous thrombosis) HTN (hypertension) Seizure Stroke Surgical History H/O craniotomy Social History Social History Alcohol intake: never Advance Directives: No Advance Directives Information Provided: No Current occupation: right handed Physical Exam Vital Signs: Vital Signs: Last Vital Signs Temp 98.2 F 07/19/20 22:00 Pulse 82 07/19/20 22:00 Resp 18 07/19/20 22:00 BP 130/71 07/19/20 22:00 Pulse Ox 96 07/19/20 22:00 Body Mass Index 31.2 Vital signs have been reviewed as normal and appeared to be correct. Blood pressure normal. Heart rate normal. Respiration rate normal. Temperature normal. Oxygen saturation normal. Appearance: Alert. Oriented X3. No acute distress. Head: Normal external exam. Normocephalic. Atraumatic. Able to rotate head bilaterally. Eyes: PERRLA. EOMI. No nystagmus noted. Conjunctiva and sclera normal. Eyelids normal. Corneal reflex normal. ENT: EAC normal. TM's Normal. Hearing normal. Pharynx normal. Uvula midline. tongue midline. Moist mucous membranes. No trismus noted. No drooling noted. No muffled voice noted. No nystagmus noted. Neck: Patient's neck is tilted to the right most likely related to a muscle spasm/torticollis although at baseline per patient and at bedside Otherwise the neck exam was normal to inspection. Neck supple. FROM. No adenopathy. Trachea midline. No meningeal signs. No neck mass noted. No midline cervical tenderness step-offs or deformities noted. CVS: Normal heart rate and rhythm. Heart sound normal. No murmurs noted. Pulses normal throughout. Respiratory: No respiratory distress. Painless inspiration. Breath sounds normal. No wheezes/rales/rhonchi noted. Chest nontender. No accessory muscle usage noted or decreased air movement noted. Abdomen: Soft and nontender. Bowel sounds normal in all 4 quadrants. No distention noted. No organomegaly noted. No visible injury noted. Back: No CVA tenderness. Full range of motion noted. Skin: Skin warm and dry. Normal skin color. Normal skin turgor. No rashes/lesions/lacerations noted. Extremities: No lower extremity edema. No calf tenderness noted. Extremities exhibit normal range of motion. Extremities nontender. Able to shrug shoulders bilaterally and keep up against resistance. Neuro: Oriented X 3. No motor deficit. No sensory deficit. Reflexes normal. Moving all extremities. No focal motor deficits. Cranial nerves II-XI intact . NIH Stroke Scale Internal: Initial- Upon Arrival Level of Consciousness: Alert Level of Consciousness Questions: Answers both questions correctly Level of Consciousness Commands: Performs both tasks correctly Best Gaze: Normal Visual: No visual loss Facial Palsy: Normal Motor Arm (Right): No drift Motor Arm (Left): No drift Motor Leg (Right): No drift Motor Leg (Left): No drift Limb Ataxia: Absent Sensory: Normal Best Language: No aphasia Dysarthia: Normal Extinction and Inattention: No abnormality Score: 0 Course Course Course Narrative: 65-year-old female presents with headache, and abscess. Will give Fioricet, patient did have multiple CT scan studies of head and neck over the past 2 weeks, patient does not have any stroke symptoms. Patient also states that she has an abscess that was treated approximately 2 weeks ago with I&D and doxycycline script. She does report taking the entire course of the antibiotic however there is significant pain swelling and drainage coming from the site. 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 Unfortunately, culture not obtained. I did treat with Bactrim and Keflex and will continue antibiotic course upon discharge. Fioricet ineffective, will give sumatriptan IM. Approximately an hour after sumatriptan, patient states that her headache is gone. Patient was referred to Neurology as she does have a history of craniectomy secondary to brain cancer and intractable headaches patient and patient's family verbalized understanding of and agrees to plan of care discharge home. MDM - Headache Differential Diagnosis Differential diagnosis: Likely migraine, tension headache and headache Medical Records Attestation: I reviewed the patient's medical records. Discharge Plan Discharge Clinical Impression: Abscess Migraine Qualifiers: Migraine type: unspecified Status migrainosus presence: without status migrainosus Intractability: not intractable Qualified Code(s): G43.909 - Migraine, unspecified, not intractable, without status migrainosus Patient Disposition: Home, Self-Care Instructions: Migraine Headache (ED), Abscess Incision and Drainage (DC) Additional Instructions: You were evaluated for headache. We gave you Fioricet and sumatriptan which were effective in treating her headache. I prescribed Fioricet for you. Please take these medication as directed for headaches. Please follow-up with Neurology. You were seen approximately a week and half ago for an abscess to the left groin. Upon evaluation that abscess collected fluid, I did drain that abscess today. Please take Keflex and Bactrim as directed. These medications or antibiotics. Thank you for choosing this emergency department for evaluation. Please follow-up with primary care physician as needed. Return to the emergency department for any new, concerning, or worsening symptoms. Prescriptions: New yaystmoliu-gqobpzgqpdvbm-hkoo [Fioricet] 50-300-40 mg capsule 1 cap PO Q4-6H PRN (Reason: pain) Qty: 14 RF: 0 sulfamethoxazole-trimethoprim [Bactrim DS] 800-160 mg tablet 1 tab PO Q12H 7 Days Qty: 14 RF: 0 cephalexin 500 mg capsule 500 mg PO Q8H 10 Days Qty: 30 RF: 0 No Action amlodipine 5 mg tablet 5 mg PO DAILY 30 Days Qty: 30 RF: 0 hydrochlorothiazide 25 mg tablet 25 mg PO DAILY 90 Days Qty: 90 RF: 3 atorvastatin 40 mg tablet 40 mg PO DAILY 30 Days Qty: 30 RF: 5 rivaroxaban [Xarelto] 20 mg tablet 20 mg PO BEDTIME Qty: 30 RF: 2 aspirin 81 mg tablet,delayed release (DR/EC) 81 mg PO DAILY Qty: 30 RF: 2 Interventions: ED Discharge Assessment Last Done: 07/19/20 22:12 Discharge Date/Time: 07/19/20 22:14
[2020-07-19] MEDS: cephALEXin 500 MG CAPSULE PO (20:03)
[2020-07-19] MEDS: Butalb/Acetamin/Caff 50/325/40 TABLET 1 TAB PO (20:03)
[2020-07-19 22:00] VITALS: BP 130/71; PULSE 82; RESP 18; TEMP 36.8; O2SAT 96
== END 2020-07-19 22:14 | disposition home or self-care (01) ==
PROVIDERS: Emergency Provider Internal Medicine
DX: G43.909 Migraine, unspecified, not intractable, without status migrainosus (principal); L02.214 Cutaneous abscess of groin; I10 Essential (primary) hypertension; C71.9 Malignant neoplasm of brain, unspecified; Z86.718 Personal history of other venous thrombosis and embolism; Z92.3 Personal history of irradiation; Z92.21 Personal history of antineoplastic chemotherapy; Z86.73 Personal history of transient ischemic attack (TIA), and cerebral infarction without residual deficits; Z79.899 Other long term (current) drug therapy; Z79.02 Long term (current) use of antithrombotics/antiplatelets
CPT/HCPCS: 10060; 96372; 99284; J3030

== ENCOUNTER → 2020-08-06 12:50 | Outpatient (BNVA) | payer MEDICARE, MEDICAID, SELFPAY | PROVIDERS: PCP Physician Assistant; Visit Provider Nurse Practitioner Family | DX: Z12.11 Encounter for screening for malignant neoplasm of colon (principal) | CPT/HCPCS: 99202 ==

== ENCOUNTER → 2020-08-19 13:43 | Outpatient (REF) | payer MEDICARE, MEDICAID, SELFPAY ==
--- NOTE | 2020-08-19 14:55 | ECG_ITS ---
Hook-up date: 2020-08-19 14:04:00 Duration: 25:28:00 Test Indications: PVC'S Medications: 884265 QRS complexes 416 Ventricular ectopics which represent <1 % of total QRS comp. 3494 Supraventricular ectopics which represent 3 % of total QRS comp. * Paced QRS complexs which represent % of total QRS comp. VENTRICULAR ECTOPY 416 Isolated 0 Bigeminal Cycles 0 Couplets 0 Runs 0 Beats in Runs * Beats LONGEST at * BPM at :: -- * Beats FASTEST at * BPM at :: -- SUPRAVENTRICULAR ECTOPY 3440 Isolated 19 Couplets 4 Runs 16 Beats in Runs 6 Beats LONGEST at 125 BPM at 01:28:32 2020-08-20 6 Beats FASTEST at 125 BPM at 01:28:32 2020-08-20 HEART RATES 61 MIN at 08:38:49 2020-08-20 70 AVG 136 MAX at 14:23:10 2020-08-19 LONGEST RR 1.1760 secs at 11:14:24 2020-08-20 S-T LEVELS Channel 1 - 128 mm at 14:04:00 2020-08-19 - 128 mm at 14:04:00 2020-08-19 Channel 2 - 128 mm at 14:04:00 2020-08-19 - 128 mm at 14:04:00 2020-08-19 Channel 3 - 128 mm at 03:32:31 -- - 128 mm at 03:32:31 Basic rhythm Normal sinus rhythm No long pause or profound bradycardia Occasional Premature ventricular complexes Frequent Premature atrial complexes , 3% of total beats No diary submitted Referred By: [place] Overread By: MARY THRASHER MD
== END ==
LOC: HO.CARD 13:43
PROVIDERS: PCP Hospitalist; Visit Provider Physician Assistant
DX: I49.3 Ventricular premature depolarization (principal)
CPT/HCPCS: 93225; 93226

== ENCOUNTER 2020-10-05 11:55 | Outpatient (REF) | payer MEDICARE, MEDICAID, SELFPAY | END 2020-10-05 11:56 | disposition home or self-care (01) | LOC: HO.MAMMO 11:55 | PROVIDERS: Visit Provider Hospitalist | DX: Z13.89 Encounter for screening for other disorder (principal) ==

== ENCOUNTER → 2020-11-12 13:02 | Outpatient (BNVA) | payer MEDICARE, MEDICAID, SELFPAY | PROVIDERS: PCP Physician Assistant; Visit Provider Internal Medicine Pulmonary Disease | DX: G47.33 Obstructive sleep apnea (adult) (pediatric) (principal); G47.00 Insomnia, unspecified; Z99.89 Dependence on other enabling machines and devices | CPT/HCPCS: 99212 ==

== ENCOUNTER 2020-11-15 13:20 | Emergency (ER) | payer MEDICARE, MEDICAID, SELFPAY ==
--- NOTE | ~2020-11-15 | XR_ITS ---
EXAMINATION: XR CHEST CLINICAL INFORMATION: Fever COMPARISON: 07/06/2020 CT chest TECHNIQUE: Frontal view of the chest was obtained. FINDINGS: No focal consolidation, pleural effusion or pneumothorax. Lordotic positioning and patient's chin overlying the right apex limit assessment. Heart size is normal. Tortuosity thoracic aorta. No acute osseous abnormality. XR/XR chest 1V IMPRESSION: No acute pulmonary process.
[2020-11-15 13:38] VITALS: BP 125/61; PULSE 93; RESP 18; TEMP 36.9; O2SAT 99; BMI 30.4
[2020-11-15 14:06] VITALS: BP 130/65; PULSE 94; RESP 17; TEMP 1013; TEMP 545; O2SAT 100
[2020-11-15 14:37] VITALS: BP 127/75; PULSE 84; RESP 18; O2SAT 98
[2020-11-15 14:41] LABS: Basophils Absolute Auto 0.1 X10*3/uL (0.0-0.2); Basophils Percent Auto 0.4 % (0-2); Eosinophils Percent Auto 0.3 % (0-4); Hemoglobin 13.7 g/dl (12.0-16.0); Imm Gran Abs Auto 0.03 X10*3/uL (0.00-0.03); Imm Gran Pct Auto 0.3 % (0.0-0.4); Lymphocytes Absolute Auto 1.8 X10*3/uL (1.2-4.9); Lymphocytes Percent Auto 15.9 % (20-40); MANUAL DIFF FLAG NO; Mean Corpuscular HGB Conc 32.6 g/dl (31.0-35.0); Mean Corpuscular Hemoglobin 27.8 pg (27.0-33.0); Mean Corpuscular Volume 85.2 fL (80-98); Mean Platelet Volume 9.8 fL (9.4-12.3); Monocytes Percent Auto 8.9 % (2-11); Neutrophils Absolute Auto 8.6 X10*3/uL (2.0-8.3); Neutrophils Percent Auto 74.2 % (45-73); Platelet Count 307 X10*3/uL (160-400); Red Blood Count 4.93 X10*6/uL (4.20-5.50); Red Cell Distribution Width 13.2 % (11.0-16.0); White Blood Count 11.6 X10*3/uL (4.8-10.8)
--- NOTE | 2020-11-15 14:49 | PC.NURSE ---
pt alert, vss, per pt's pt has been more confused than baseline. He also states that pt has been voiding more than usual. Denies nausea/vomiting/diarrhea. No abdominal pain. Pt's reports temperature prior to arrival to ed her temperature was 99.9. Her rectal temperature on arrival to the ed was 101.3. Pt has a history of seizures, last seizure was about one year ago. Pt's states that this morning he heard her scream from the bedroom and when he went in the room she was having a seizure. Pt is on seizure meds and has been consistently taking her meds. Pt also has regular follow-ups with her neurologist. Pt also on Xarelto. Pt's is at her bedside. Seizure precautions in place.
[2020-11-15 14:52] LABS: Lactic Acid 1.7 mmol/L (0.5-2.0)
[2020-11-15 14:58] LABS: Alanine Aminotransferase 14 U/L (0-31); Albumin Level 3.8 g/dL (3.5-5.0); Alkaline Phosphatase 78 U/L (39-117); Anion Gap 10 (12-20); Aspartate Amino Transferase 14 U/L (5-31); Bilirubin Direct 0.2 mg/dL (0.0-0.5); Bilirubin Total 0.5 mg/dL (0.0-1.0); Blood Urea Nitrogen 11 mg/dL (9-16); Calcium 9.4 mg/dL (8.4-10.2); Carbon Dioxide 31 mmol/L (22-29); Chloride 102 mmol/L (96-108); Creatinine Clr Calc Pharmacy 82.5; Estimated Glomerular Filt Rate > 60; Glucose Random 115 mg/dL (60-115); Potassium 3.6 mmol/L (3.3-5.1); Sodium 139 mmol/L (135-145); Total Protein 6.9 g/dL (6.5-8.0)
[2020-11-15 15:05] VITALS: BP 146/90; PULSE 86; RESP 19; O2SAT 97
--- NOTE | 2020-11-15 15:10 | ED.GENADULT ---
HPI - General Adult General Chief complaint: Seizure Stated complaint: seizure this morning, fever, weak Time Seen by Provider: 11/15/20 14:57 Source: family Limitations: language barrier and altered mental status History of Present Illness HPI narrative: Patient with history of seizure disorder on Keppra, secondary to brain cancer, postop approximately 11 years. She has had imaging every 6 months which per her has been normal in tumor free ever since. Recently she has been having increased urination. Today she had a seizure for the 1st time in a year. Described as generalized shaking. She screamed in the middle of the night. After that she has been weak and not quite back to baseline per . She had a low-grade temperature of 99? prior to leaving the house. No recent vomiting or abdominal pain. Patient denies all symptoms currently. On arrival here he had a temperature of 102 rectally. Seizure occurred while in bed. No injuries. No tongue biting. No urinary incontinence Related Data Home Medications Medication Instructions Recorded Confirmed levetiracetam 100 mg/mL oral 1,000 mg PO TID 07/07/20 solution loratadine 10 mg tablet 10 mg PO DAILY 07/07/20 Previous Rx's Medication Instructions Recorded hydrochlorothiazide 25 mg tablet 25 mg PO DAILY 90 Days #90 tab 04/17/20 atorvastatin 40 mg tablet 40 mg PO DAILY 30 Days #30 tab 04/22/20 tqxicfpxio-okplrobejqfye-syhcexxk 1 cap PO Q4-6H PRN #14 cap 07/19/20 50 mg-300 mg-40 mg capsule (Fioricet) cephalexin 500 mg capsule 500 mg PO Q8H 10 Days #30 cap 07/19/20 sulfamethoxazole 800 1 tab PO Q12H 7 Days #14 tab 07/19/20 mg-trimethoprim 160 mg tablet (Bactrim DS) bisacodyl 5 mg tablet,delayed 10 mg PO ONCE 1 Days #2 tab 08/06/20 release (Dulcolax (bisacodyl)) polyethylene glycol 3350 17 238 g PO ONCE #238 g 08/06/20 gram/dose oral powder (Miralax) rivaroxaban 20 mg tablet (Xarelto) 20 mg PO BEDTIME #30 tab 08/28/20 amlodipine 5 mg tablet 5 mg PO DAILY #30 tab 09/10/20 miscellaneous medical supply #240 ea 10/28/20 aspirin 81 mg tablet,delayed 81 mg PO DAILY #90 tab 11/10/20 release cephalexin 750 mg capsule (Keflex) 750 mg PO BID #14 cap 11/15/20 Allergies Allergy/AdvReac Type Severity Reaction Status Date / Time apple [Apple] Allergy Severe THROAT Verified 11/15/20 13:37 SWELLING pollen extracts [POLLEN] Allergy Intermediate SNEEZING Verified 11/15/20 13:37 COUGHING ALOT kiwi AdvReac Intermediate VOMITING Verified 11/15/20 13:37 [Kiwi (Actinidia Chinensis)] avocado [Avocado] AdvReac Mild VOMITING Verified 11/15/20 13:37 Review of Systems Constitutional: Comments: Fevers as mentioned in HPI Eyes: Comments: No photophobia Cardiovascular: Comments: No chest pain Respiratory: Comments: Occasional cough but no recent changes Gastrointestinal: Comments: With no nausea or vomiting or diarrhea or abdominal pain Genitourinary: Comments: Urinary frequency without burning Musculoskeletal: Comments: No trauma Integumentary/Breasts: Comments: No rashes PMFSH Past Medical History Medical History Brain cancer DVT (deep venous thrombosis) HTN (hypertension) Seizure Stroke Surgical History H/O craniotomy Social History Social History Alcohol intake: never Advance Directives: No Advance Directives Information Provided: Yes Current occupation: right handed Physical Exam Vital Signs: Vital Signs: Last Vital Signs Temp 99.7 F 11/15/20 16:00 Pulse 82 11/15/20 16:51 Resp 16 11/15/20 16:51 BP 137/71 11/15/20 16:51 Pulse Ox 96 11/15/20 16:51 Body Mass Index 30.4 Const: Other: Awake and holding her head but denies symptoms HENMT: Other: Normocephalic atraumatic. No evidence of tongue biting Eyes: Other: No photophobia Neck: Other: No meningismus Resp: Other: Clear bilaterally Cardio: Other: Regular rate and rhythm GI: Other: Soft nontender nondistended. Normoactive bowel sounds Skin: Other: Warm pink and dry without rash or breakdown Neuro: Other: No obvious focal deficit Course Course Course Narrative: Seizure with baseline history of seizure disorder secondary to brain cancer in remission. Fever, likely lowering seizure threshold and contributing to her tonic-clonic grand mal seizure today. Sepsis Urinary tract infection COVID-19 infection, breakthrough as patient is vaccinated Pneumonia Bacteremia Treated with IV fluids, 30 mL/kilogram. Await urinalysis and then will treat with antibiotics [place] [address]. Bicarb is 31. Renal function and liver function are normal. 4:06 p.m.. Urine appears cloudy. Await urinalysis but will treat empirically with ceftriaxone in the meantime 5:50 p.m.. Urinalysis confirms urinary tract infection. Patient is feeling better after IV fluids and acetaminophen. Will discharge home on [facility] Medical Decision Making Lab Data Result diagrams: 11/15/20 14:33 11/15/20 14:33 Labs: Lab Results 11/15/20 11/15/20 11/15/20 Range/Units 14:33 14:33 14:33 WBC 11.6 H (4.8-10.8) X10*3/uL RBC 4.93 (4.20-5.50) X10*6/uL Hgb 13.7 (12.0-16.0) g/dl Hct 42.0 (37-47) % MCV 85.2 (80-98) fL MCH 27.8 (27.0-33.0) pg MCHC 32.6 (31.0-35.0) g/dl RDW 13.2 (11.0-16.0) % Plt Count 307 (160-400) X10*3/uL MPV 9.8 (9.4-12.3) fL Immature Gran % (Auto) 0.3 (0.0-0.4) % Neut % (Auto) 74.2 H (45-73) % Lymph % (Auto) 15.9 L (20-40) % [place] % (Auto) 8.9 (2-11) % Eos % (Auto) 0.3 (0-4) % Baso % (Auto) 0.4 (0-2) % Lymph # (Auto) 1.8 (1.2-4.9) X10*3/uL [place] # (Auto) 1.0 (0.1-1.2) X10*3/uL Eos # (Auto) 0.0 (0.0-0.4) X10*3/uL Baso # (Auto) 0.1 (0.0-0.2) X10*3/uL Abs Immat Gran (auto) 0.03 (0.00-0.03) X10*3/uL Absolute Neuts (auto) 8.6 H (2.0-8.3) X10*3/uL Absolute Nucleated RBC 0.000 (0.0-0.012) X10*3/uL Nucleated RBC % (auto) 0.0 (0.0-0.2) /100WBC PT (9.9-13.0) SEC INR (0.9-1.1) APTT (24.1-38.0) SEC Sodium 139 (135-145) mmol/L Potassium 3.6 (3.3-5.1) mmol/L Chloride 102 (96-108) mmol/L Carbon Dioxide 31 H (22-29) mmol/L Anion Gap 10 L (12-20) BUN 11 (9-16) mg/dL Creatinine 0.79 (0.5-1.4) mg/dL Estim Creat Clear Calc 82.5 Estimated GFR > 60 Random Glucose 115 (60-115) mg/dL Lactic Acid 1.7 (0.5-2.0) mmol/L Calcium 9.4 (8.4-10.2) mg/dL Total Bilirubin 0.5 (0.0-1.0) mg/dL Direct Bilirubin 0.2 (0.0-0.5) mg/dL AST 14 (5-31) U/L ALT 14 (0-31) U/L Alkaline Phosphatase 78 (39-117) U/L Total Protein 6.9 (6.5-8.0) g/dL Albumin 3.8 (3.5-5.0) g/dL Urine Color Urine Appearance Urine pH (5.0-8.0) Ur Specific [place] (1.005-1.025) Urine Protein (NEG-TRACE) MG/DL Urine Glucose (UA) (NEG) MG/DL Urine Ketones (NEG) MG/DL Urine Blood (NEG) Urine Nitrite (NEG) Ur Leukocyte Esterase (NEG) Urine RBC (0) /HPF Urine WBC (0-4) /HPF Ur Squamous Epith Cells /LPF Urine Bacteria /LPF COVID-19 (JURGEN) (Negative) COVID-19 Clin Com 11/15/20 11/15/20 11/15/20 Range/Units 15:30 15:30 15:54 WBC (4.8-10.8) X10*3/uL RBC (4.20-5.50) X10*6/uL Hgb (12.0-16.0) g/dl Hct (37-47) % MCV (80-98) fL MCH (27.0-33.0) pg MCHC (31.0-35.0) g/dl RDW (11.0-16.0) % Plt Count (160-400) X10*3/uL MPV (9.4-12.3) fL Immature Gran % (Auto) (0.0-0.4) % Neut % (Auto) (45-73) % Lymph % (Auto) (20-40) % [place] % (Auto) (2-11) % Eos % (Auto) (0-4) % Baso % (Auto) (0-2) % Lymph # (Auto) (1.2-4.9) X10*3/uL [place] # (Auto) (0.1-1.2) X10*3/uL Eos # (Auto) (0.0-0.4) X10*3/uL Baso # (Auto) (0.0-0.2) X10*3/uL Abs Immat Gran (auto) (0.00-0.03) X10*3/uL Absolute Neuts (auto) (2.0-8.3) X10*3/uL Absolute Nucleated RBC (0.0-0.012) X10*3/uL Nucleated RBC % (auto) (0.0-0.2) /100WBC PT 23.9 H (9.9-13.0) SEC INR 2.1 H (0.9-1.1) APTT 42.9 H (24.1-38.0) SEC Sodium (135-145) mmol/L Potassium (3.3-5.1) mmol/L Chloride (96-108) mmol/L Carbon Dioxide (22-29) mmol/L Anion Gap (12-20) BUN (9-16) mg/dL Creatinine (0.5-1.4) mg/dL Estim Creat Clear Calc Estimated GFR Random Glucose (60-115) mg/dL Lactic Acid (0.5-2.0) mmol/L Calcium (8.4-10.2) mg/dL Total Bilirubin (0.0-1.0) mg/dL Direct Bilirubin (0.0-0.5) mg/dL AST (5-31) U/L ALT (0-31) U/L Alkaline Phosphatase (39-117) U/L Total Protein (6.5-8.0) g/dL Albumin (3.5-5.0) g/dL Urine Color YELLOW Urine Appearance HAZY Urine pH 7.0 (5.0-8.0) Ur Specific [place] 1.020 (1.005-1.025) Urine Protein NEG (NEG-TRACE) MG/DL Urine Glucose (UA) NEG (NEG) MG/DL Urine Ketones NEG (NEG) MG/DL Urine Blood 3+ H (NEG) Urine Nitrite POS H (NEG) Ur Leukocyte Esterase 1+ H (NEG) Urine RBC 30-49 H (0) /HPF Urine WBC 10-14 H (0-4) /HPF Ur Squamous Epith Cells 3+ /LPF Urine Bacteria 3+ /LPF COVID-19 (JURGEN) Negative (Negative) COVID-19 Clin Com See Note Discharge Plan Discharge Clinical Impression: Seizure Urinary tract infection Qualifiers: Urinary tract infection type: acute cystitis Hematuria presence: without hematuria Qualified Code(s): N30.00 - Acute cystitis without hematuria Patient Disposition: Home, Self-Care Instructions: Urinary Tract Infection in Women (ED), Epilepsy in Older Adults (ED) Additional Instructions: Continue your current medications. In addition I will be prescribing Keflex, antibiotic for the urinary tract infection because her fever which contributed to the seizure Prescriptions: New cephalexin [Keflex] 750 mg capsule 750 mg PO BID Qty: 14 RF: 0 No Action hydrochlorothiazide 25 mg tablet 25 mg PO DAILY 90 Days Qty: 90 RF: 3 atorvastatin 40 mg tablet 40 mg PO DAILY 30 Days Qty: 30 RF: 5 Xarelto 20 mg tablet 20 mg PO BEDTIME Qty: 30 RF: 2 amlodipine 5 mg tablet 5 mg PO DAILY Qty: 30 RF: 3 (DME) miscellaneous medical supply Misc See Rx Instructions .ROUTE .MEDSUPPLY Qty: 240 RF: 6 aspirin 81 mg tablet,delayed release (DR/EC) 81 mg PO DAILY Qty: 90 RF: 0 bgipbncvug-kxrgyiyetgrdm-sbsz [Fioricet] 50-300-40 mg capsule 1 cap PO Q4-6H PRN (Reason: pain) Qty: 14 RF: 0 sulfamethoxazole-trimethoprim [Bactrim DS] 800-160 mg tablet 1 tab PO Q12H 7 Days Qty: 14 RF: 0 cephalexin 500 mg capsule 500 mg PO Q8H 10 Days Qty: 30 RF: 0 levetiracetam 100 mg/mL solution 1,000 mg PO TID RF: 0 loratadine 10 mg tablet 10 mg PO DAILY RF: 0 bisacodyl [Dulcolax (bisacodyl)] 5 mg tablet,delayed release (DR/EC) 10 mg PO ONCE 1 Days Qty: 2 RF: 0 polyethylene glycol 3350 [Miralax] 17 gram/dose powder 238 g PO ONCE Qty: 238 RF: 0
[2020-11-15] MEDS: Acetaminophen 325 MG TABLET 650 MG PO (15:17)
[2020-11-15] MEDS: 0.9 % Sodium Chloride 2,721.54 ML 2721.54 ML IV (15:22)
[2020-11-15 15:44] LABS: INTERNATIONAL NORM RATIO 2.1 (0.9-1.1); Prothrombin Time 23.9 SEC (9.9-13.0)
[2020-11-15 15:47] LABS: Partial Thromboplastin Time 42.9 SEC (24.1-38.0)
[2020-11-15 15:51] LABS: COVID-19 Test Negative (Negative)
[2020-11-15 16:00] VITALS: BP 128/74; PULSE 81; RESP 18; TEMP 37.6; O2SAT 97
--- NOTE | 2020-11-15 16:05 | PC.NURSE ---
PATIENT WAS CHANGE AND REPOSITION
[2020-11-15 16:08] LABS: Appearance Urine HAZY; Color Urine YELLOW; Glucose Urine UA NEG (NEG); Leukocyte Esterase Urine 1+ (NEG); Nitrite Urine POS (NEG); UACC Culture Trigger YES; Urine Blood 3+ (NEG); Urine Ketones NEG (NEG); Urine Protein NEG (NEG-TRACE)
[2020-11-15 16:20] LABS: Bacteria Urine 3+ /LPF; RBC Urine 30-49 /HPF (0); Squamous Epithelial Cell Urine 3+ /LPF; UACC CULT YES
[2020-11-15] MEDS: cefTRIAXone sodium 1 GM in 0.9 % Sodium Chloride 50 ML IV (16:31)
[2020-11-15 16:51] VITALS: BP 137/71; PULSE 82; RESP 16; O2SAT 96
[2020-11-20 14:02] LABS: Levetiracetam Keppra 37.6 mcg/mL (12.0-46.0)
== END 2020-11-15 18:06 | disposition home or self-care (01) ==
PROVIDERS: Emergency Provider Emergency Medicine; PCP Physician Assistant
DX: N30.00 Acute cystitis without hematuria (principal); R56.9 Unspecified convulsions; R50.9 Fever, unspecified; Z20.822 Contact with and (suspected) exposure to COVID-19; Z79.899 Other long term (current) drug therapy
CPT/HCPCS: 36415; 71045; 80048; 80076; 80177; 81001; 83605; 85025; 85610; 85730; 87040; 87086; 87088; 87186; 87635; 96361; 96365; 99284; J0696

== ENCOUNTER → 2020-11-24 13:03 | Outpatient (BNVA) | payer MEDICARE, MEDICAID, SELFPAY | PROVIDERS: PCP Physician Assistant; Referring Provider Hospitalist; Visit Provider Internal Medicine | DX: I49.1 Atrial premature depolarization (principal); I49.3 Ventricular premature depolarization; I10 Essential (primary) hypertension; G47.33 Obstructive sleep apnea (adult) (pediatric); Z99.89 Dependence on other enabling machines and devices | CPT/HCPCS: 99202 ==

== ENCOUNTER 2021-01-17 12:58 | Emergency (ER) | payer MEDICARE, MEDICAID, SELFPAY ==
[2021-01-17 13:01] VITALS: BP 134/90; PULSE 84; RESP 16; TEMP 36.9; O2SAT 100; BMI 31.4
[2021-01-17] MEDS: Lidocaine HCl 2 % MPF 5 ML VIAL SUBCUT (14:06)
--- NOTE | 2021-01-17 14:26 | ED_ITS ---
HPI - Skin/Abscess/Foreign Bdy General Chief complaint: Skin/Abscess/Foreign Body Stated complaint: VAGINAL LUMP Time Seen by Provider: 01/17/21 13:57 Source: patient and family Mode of arrival: ambulatory Limitations: no limitations History of Present Illness HPI narrative: 64 yo female hx of HTN, DVT, brain cancer s/p chemo and radiation presenting?complaints of left buttocks abscess for several days. Patient has history of same in the similar area. She has had multiple I&Ds at this area. No fevers or chills. Related Data Home Medications Medication Instructions Recorded Confirmed levetiracetam 100 mg/mL oral 1,000 mg PO TID 07/07/20 11/24/20 solution loratadine 10 mg tablet 10 mg PO DAILY 07/07/20 11/24/20 Previous Rx's Medication Instructions Recorded hydrochlorothiazide 25 mg tablet 25 mg PO DAILY 90 Days #90 tab 04/17/20 atorvastatin 40 mg tablet 40 mg PO DAILY 30 Days #30 tab 04/22/20 wiblztxpgg-jjbkxkznbycto-cvvzxwoj 1 cap PO Q4-6H PRN #14 cap 07/19/20 50 mg-300 mg-40 mg capsule (Fioricet) cephalexin 500 mg capsule 500 mg PO Q8H 10 Days #30 cap 07/19/20 sulfamethoxazole 800 1 tab PO Q12H 7 Days #14 tab 07/19/20 mg-trimethoprim 160 mg tablet (Bactrim DS) bisacodyl 5 mg tablet,delayed 10 mg PO ONCE 1 Days #2 tab 08/06/20 release (Dulcolax (bisacodyl)) polyethylene glycol 3350 17 238 g PO ONCE #238 g 08/06/20 gram/dose oral powder (Miralax) amlodipine 5 mg tablet 5 mg PO DAILY #30 tab 09/10/20 miscellaneous medical supply #240 ea 10/28/20 aspirin 81 mg tablet,delayed 81 mg PO DAILY #90 tab 11/10/20 release cephalexin 750 mg capsule (Keflex) 750 mg PO BID #14 cap 11/15/20 rivaroxaban 20 mg tablet (Xarelto) 20 mg PO BEDTIME 90 Days #90 tab 12/02/20 doxycycline monohydrate 100 mg 100 mg PO BID #20 tab 01/17/21 tablet oxycodone 5 mg tablet 5 mg PO Q8H PRN #8 tab 01/17/21 Allergies Allergy/AdvReac Type Severity Reaction Status Date / Time apple [Apple] Allergy Severe THROAT Verified 11/24/20 13:08 SWELLING pollen extracts [POLLEN] Allergy Intermediate SNEEZING Verified 11/24/20 13:08 COUGHING ALOT kiwi AdvReac Intermediate VOMITING Verified 11/24/20 13:08 [Kiwi (Actinidia Chinensis)] avocado [Avocado] AdvReac Mild VOMITING Verified 11/24/20 13:08 Review of Systems Review of Systems: Yes all other systems are reviewed and are negative Constitutional: Constitutional: Reports no additional constitutional complaints, Denies body ache(s), Denies chills, Denies fever(s), Denies headache(s) and Denies weakness Eyes: Eyes: Reports no additional eye complaints and Denies change in vision ENT: Reports system reviewed and no additional complaints, except as documented, Denies dizziness, Denies headache(s), Denies nasal congestion, Denies nasal discharge and Denies neck pain Cardiovascular: Cardiovascular: Reports no additional cardiovascular complaints, Denies chest pain, Denies leg edema and Denies dyspnea Respiratory: Respiratory: Reports no additional respiratory complaints, Denies cough and Denies dyspnea Gastrointestinal: Gastrointestinal: Reports no additional gastrointestinal complaints, Denies abdominal pain, Denies diarrhea, Denies nausea and Denies vomiting Genitourinary: Genitourinary: Reports no additional female genitourinary complaints and Denies urinary incontinence Musculoskeletal: Musculoskeletal: Reports no additional musculoskeletal comp laints, Denies back pain, Denies arthralgias, Denies joint swelling, Denies neck pain, Denies numbness and Denies tingling Integumentary/Breasts: Skin/Breast: Reports system reviewed and no additional complaints, except as docu, Reports swelling, Reports erythema and Denies rash Neurologic: Reports system reviewed and no additional complaints, except as documented, Denies dizziness, Denies headache(s), Denies numbness, Denies tingling and Denies weakness PMFSH Past Medical History Attestation statement: The following information was validated with the patient. Source: old records reviewed and nursing notes reviewed Medical History Brain cancer DVT (deep venous thrombosis) HTN (hypertension) Seizure Stroke Unspecified urinary incontinence Surgical History H/O craniotomy Family History Family History Mother Diabetes Father Heart disease Family/Other Breast cancer Brain cancer Diabetes Social History Social History Alcohol intake: never Patient Tobacco Use Status: Never used Tobacco Advance Directives: Yes Advance Directives on File: Yes Advance Directives Date on File: 02/12/20 Current occupational status: disabled Current occupation: right handed Physical Exam Vital Signs: Vital Signs: Last Vital Signs Temp 98.4 F 01/17/21 13:01 Pulse 84 01/17/21 13:01 Resp 16 01/17/21 13:01 BP 134/90 H 01/17/21 13:01 Pulse Ox 100 01/17/21 13:01 Body Mass Index 31.4 Const: General: cooperative, healthy appearing, comfortable and no acute distress Orientation/consciousness: patient oriented x3 Limitations: no limitations HENMT: Head: Yes normal to inspection Ears: hearing grossly normal bilaterally General nose exam: Normal external nose present Face and sinus: Yes normal facial exam Mouth: Normal oral and palatal mucosa present Throat: Yes posterior oropharynx normal Eyes: General: appearance normal, both eyes and all related structures Pupils: Equal, round and reactive pupils present Neck: Neck: Yes normal visual inspection Chest: Chest palpation & inspection: normal inspection of the chest Resp: Effort & Inspection: normal respiratory effort Auscultation: clear to auscultation bilaterally Cardio: Rate: regular rate Rhythm: regular rhythm Peripheral pulses: Peripheral pulses 2+ throughout GI: Inspection: Yes normal to inspection Palpation (GI): Soft to palpation and nontender Auscultation: normal bowel sounds : Other: to the left inner buttocks there is a large sized abscess with fluctuance and tenderness. There is local erythema and warmth around the site. There is no erythema or warmth into the perineum. Back/Spine/Pelvis: Thoracic/Lumbar Spine: thoracic and lumbar spine normal to inspection Skin: General skin exam: no rashes or lesions noted Neuro: General: patient oriented x3 and moves all extremities Cranial nerves: Yes Equal, round and reactive pupils present Cognition (Neuro): normal cognition Extrem: General: Yes normal to inspection Course Course Course Narrative: 65-year-old female here with abscess left buttocks. Patient will need I&D of abscess and a home with oral antibiotics. 1430- see procedure note. will start doxycycline for 10 days. recommended return in 48 hours for packing removal and wound check. Patient in non-toxic appearing, afebrile. Reviewed worrisome signs and symptoms with the patient and her family member. Comfortable with discharge home. Procedures Abscess I/D Site: other ( left buttocks) Local Anesthetic: lidocaine 2% Amount of anesthesia used (mL): 3 Technique: incised with blade Amount of fluid expressed (mL): 15 Sent for culture/gram staining?: No Irrigation: No Packing used?: iodoform Discharge Plan Discharge Clinical Impression: Abscess of skin or subcutaneous tissue Patient Disposition: Home, Self-Care Instructions: Abscess (ED) Additional Instructions: Return in 48 hours for packing removal and wound check. If packing falls out before then no need to return. Also return for increasing redness, fever >100.4 Prescriptions: New doxycycline monohydrate 100 mg tablet 100 mg PO BID Qty: 20 RF: 0 oxycodone 5 mg tablet 5 mg PO Q8H PRN (Reason: pain) Qty: 8 RF: 0 No Action hydrochlorothiazide 25 mg tablet 25 mg PO DAILY 90 Days Qty: 90 RF: 3 atorvastatin 40 mg tablet 40 mg PO DAILY 30 Days Qty: 30 RF: 5 amlodipine 5 mg tablet 5 mg PO DAILY Qty: 30 RF: 3 (DME) miscellaneous medical supply Misc See Rx Instructions .ROUTE .MEDSUPPLY Qty: 240 RF: 6 aspirin 81 mg tablet,delayed release (DR/EC) 81 mg PO DAILY Qty: 90 RF: 0 Xarelto 20 mg tablet 20 mg PO BEDTIME 90 Days Qty: 90 RF: 1 ghmyscmgyb-meyeggkcahctr-gxey [Fioricet] 50-300-40 mg capsule 1 cap PO Q4-6H PRN (Reason: pain) Qty: 14 RF: 0 sulfamethoxazole-trimethoprim [Bactrim DS] 800-160 mg tablet 1 tab PO Q12H 7 Days Qty: 14 RF: 0 cephalexin 500 mg capsule 500 mg PO Q8H 10 Days Qty: 30 RF: 0 cephalexin [Keflex] 750 mg capsule 750 mg PO BID Qty: 14 RF: 0 levetiracetam 100 mg/mL solution 1,000 mg PO TID RF: 0 loratadine 10 mg tablet 10 mg PO DAILY RF: 0 bisacodyl [Dulcolax (bisacodyl)] 5 mg tablet,delayed release (DR/EC) 10 mg PO ONCE 1 Days Qty: 2 RF: 0 polyethylene glycol 3350 [Miralax] 17 gram/dose powder 238 g PO ONCE Qty: 238 RF: 0 Interventions: ED Discharge Assessment Last Done: 01/17/21 14:27
== END 2021-01-17 14:35 | disposition home or self-care (01) ==
PROVIDERS: Emergency Provider Emergency Medicine; PCP Hospitalist
DX: L02.31 Cutaneous abscess of buttock (principal)
CPT/HCPCS: 10060; 99283; 99284

== ENCOUNTER 2021-02-10 23:24 | Inpatient (IN) | payer MEDICARE, MEDICAID, SELFPAY ==
--- NOTE | ~2021-02-10 | XR_ITS ---
EXAMINATION: XR CHEST CLINICAL INFORMATION: Shortness of breath. COMPARISON: Chest radiograph 11/15/2020. CT chest 02/11/2021. TECHNIQUE: Frontal view of the chest was obtained. FINDINGS: Multiple external artifacts overlie the thorax. Making allowances for oblique orientation, the cardiac silhouette is grossly normal in size. Tortuosity of the thoracic aorta is noted. No effusions or pneumothoraces. No focal pulmonary consolidation is identified. A normal pattern of pulmonary vasculature is identified. XR/XR chest 1V IMPRESSION: *No acute cardiopulmonary abnormalities identified.
--- NOTE | ~2021-02-10 | CT_ITS ---
EXAMINATION: CT HEAD WITHOUT CONTRAST CLINICAL INFORMATION: Altered mental status COMPARISON: 07/06/2020 TECHNIQUE: Contiguous axial imaging was performed from the skull base to vertex without intravenous contrast. This CT examination was performed using dose optimization techniques as appropriate, variously including the following: * Automated exposure control * Adjustment of mA and/or kV according to patient size (this includes techniques or standardized protocols for targeted exams where dose is matched to indication/reason for exam; i.e. extremities or head) Use of iterative reconstruction technique DLP: 1238 mGy-cm. FINDINGS: Bilateral frontal lobe encephalomalacia is again noted, unchanged from prior imaging. There is no evidence of acute intracranial hemorrhage or territorial infarction. No abnormal mass effect or midline shift is seen. [place] to white matter differentiation is otherwise well preserved. No extra-axial fluid collections are identified. No hydrocephalus. Proportional prominence of the ventricles and sulcal spaces is consistent with mild volume loss. Ex vacuo dilatation of the frontal horns of both lateral ventricles. Patchy periventricular and deep white matter hypoattenuation is consistent with mild small vessel ischemic changes. No acute osseous or soft tissue abnormality. Right frontal craniotomy.. The mastoid air cells and visualized portions of the paranasal sinuses are well aerated. CT/CT head/brain wo con IMPRESSION: No acute intracranial pathology. Chronic changes of bilateral frontal encephalomalacia.
--- NOTE | ~2021-02-10 | CT_ITS ---
EXAMINATION: CT CHEST WITHOUT CONTRAST CLINICAL INFORMATION: Dyspnea. Shortness of breath. Covid positive. COMPARISON: Radiograph 11/15/2020. CT 07/06/2020. TECHNIQUE: Multidetector volumetric CT imaging of the chest was done. Axial MIP volume rendering provided. Sagittal and coronal reformatted images were obtained. This CT examination was performed using dose optimization techniques as appropriate, variously including the following: *Automated exposure control *Adjustment of mA and/or kV according to patient size (this includes techniques or standardized protocols for targeted exams where dose is matched to indication/reason for exam; i.e. extremities or head) *Use of iterative reconstruction technique DLP: 269 mGy-cm FINDINGS: LUNGS: The central airways are patent. Motion limits evaluation of the lung parenchyma. No dense consolidation. No significant groundglass changes. Minimal basilar atelectasis. No pulmonary mass. No definite pulmonary nodules identified. No pneumothorax. MEDIASTINUM: Normal heart size. No pericardial effusion. No mediastinal lymphadenopathy. Coronary artery calcifications are present. PLEURA: There is no pleural effusion. No pleural mass or thickening. AXILLA: No lymphadenopathy. UPPER ABDOMEN: Unremarkable. OSSEOUS STRUCTURES: No acute or suspicious osseous abnormality. Mild degenerative changes of the spine. CT/CT chest wo con IMPRESSION: Motion limited study. No consolidation or significant groundglass opacities are seen in the lungs. Fleischner guidelines were followed.
[2021-02-10 23:35] VITALS: BP 158/88; PULSE 111; RESP 20; TEMP 37.6; O2SAT 98; BMI 23.9
[2021-02-11] VITALS (9 sets, daily range): BP systolic 105–173; BP diastolic 65–94; PULSE 85–130; RESP 16–24; TEMP 36.6–37.3; O2SAT 94–100
--- NOTE | 2021-02-11 00:04 | ECG_ITS ---
Test Reason : SOB Blood Pressure : / mmHG Vent. Rate : 103 BPM Atrial Rate : 103 BPM P-R Int : 162 ms QRS Dur : 072 ms QT Int : 342 ms P-R-T Axes : 047 008 040 degrees QTc Int : 448 ms Sinus tachycardia Minimal voltage criteria for LVH, may be normal variant ( R in aVL ) Borderline ECG When compared with ECG of 06-JUL-2020 16:32, Premature atrial complexes are no longer Present Referred By: Red Narayanan Electronically Signed By:MICAELA OROZCO
--- NOTE | 2021-02-11 00:13 | ED_ITS ---
HPI - SOB/Dyspnea General Chief Complaint: Dyspnea Stated Complaint: SOB Time Seen by Provider: 02/10/21 23:34 Source: patient and family Mode of arrival: wheelchair Limitations: physical limitation (Torticollis, chronic right-sided weakness) History of Present Illness HPI Narrative: 65-year-old female presents to the emergency department for increased shortness of breath, dyspnea, and grunting. Granddaughter noted adventitious lung sounds earlier today. Patient has been sick for approximately 3 days, and had been exposed to COVID during a judaism event. Family members are sick with upper respiratory symptoms but have tested COVID negative. MD elicited complaint: shortness of breath Pertinent past history: aspiration Onset (ago): day(s) (3) Timing: constant Severity: moderate Exacerbating factors: exertion and coughing Relieving factors: nothing Known history of: aspiration pneumonia Associated symptoms: cough, wheezing and chest congestion Treatment prior to arrival: none Related Data Home Medications Medication Instructions Recorded Confirmed loratadine 10 mg tablet 10 mg PO DAILY 07/07/20 11/24/20 Previous Rx's Medication Instructions Recorded hydrochlorothiazide 25 mg tablet 25 mg PO DAILY 90 Days #90 tab 04/17/20 atorvastatin 40 mg tablet 40 mg PO DAILY 30 Days #30 tab 04/22/20 pwnocxtucp-jtuoxjtypltzq-icwmrmyj 1 cap PO Q4-6H PRN #14 cap 07/19/20 50 mg-300 mg-40 mg capsule (Fioricet) bisacodyl 5 mg tablet,delayed 10 mg PO ONCE 1 Days #2 tab 08/06/20 release (Dulcolax (bisacodyl)) polyethylene glycol 3350 17 238 g PO ONCE #238 g 08/06/20 gram/dose oral powder (Miralax) [employer] [facility] supply #240 ea 10/28/20 rivaroxaban 20 mg tablet (Xarelto) 20 mg PO BEDTIME 90 Days #90 tab 12/02/20 doxycycline monohydrate 100 mg 100 mg PO BID #20 tab 01/17/21 tablet oxycodone 5 mg tablet 5 mg PO Q8H PRN #8 tab 01/17/21 amlodipine 5 mg tablet 5 mg PO DAILY #90 tab 02/03/21 aspirin 81 mg tablet,delayed 81 mg PO DAILY #90 tab 02/08/21 release levetiracetam 100 mg/mL oral 1,000 mg (10 mL) PO TID 30 Days 02/09/21 solution #900 ml Allergies Allergy/AdvReac Type Severity Reaction Status Date / Time apple [Apple] Allergy Severe THROAT Verified 02/10/21 23:35 SWELLING pollen extracts [POLLEN] Allergy Intermediate SNEEZING Verified 02/10/21 23:35 COUGHING ALOT kiwi AdvReac Intermediate VOMITING Verified 02/10/21 23:35 [Kiwi (Actinidia Chinensis)] avocado [Avocado] AdvReac Mild VOMITING Verified 02/10/21 23:35 Review of Systems Review of Systems: Constitutional: No Fever, No Chills ENT/Mouth: No Ear Pain, No Hoarseness, No sore throat Eyes: No Eye Pain, No Swelling, No Redness, No Foreign Body Cardiovascular: No Chest Pain, positive SOB Respiratory: Positive Cough, positive Dyspnea Gastrointestinal: No Nausea, No Vomiting, No Diarrhea, No abdominal Pain Genitourinary: No Dysuria, No Hematuria Musculoskeletal: positive joint pain, No Myalgias, No Joint Swelling Skin: No Skin lacerations, No rash Neuro: No Weakness, No Numbness, No Paresthesias, No Loss of Consciousness, No Dizziness, No Headache Psych: No Anxiety/Panic, No Depression Heme/Lymph: no easy bruising, no Lymphadenopathy Endocrine: No Polyuria, No Polydipsia Yes all other systems are reviewed and are negative [facility] Past Medical History Attestation statement: The following information was validated with the patient. Source: old records reviewed Medical History Brain cancer DVT (deep venous thrombosis) HTN (hypertension) Seizure Stroke Unspecified urinary incontinence Surgical History H/O craniotomy Family History Family History Mother Diabetes Father Heart disease Family/Other Breast cancer Brain cancer Diabetes Social History Social History Alcohol intake: never Patient Tobacco Use Status: Never used Tobacco Use of substances other than those prescribed or required for medical reasons: No Advance Directives: Yes Advance Directives on File: Yes Advance Directives Date on File: 02/12/20 Current occupational status: disabled Current occupation: right handed Physical Exam Vital Signs: Vital Signs: Last Vital Signs Temp 99.7 F 02/10/21 23:35 Pulse 111 H 02/10/21 23:35 Resp 20 02/10/21 23:35 BP 158/88 H 02/10/21 23:35 Pulse Ox 98 02/10/21 23:35 BMI result Body Mass Index 23.9 Appearance: Alert. Oriented X3. No acute distress. Head: Normal external exam. Normocephalic. Atraumatic. No Pacheco signs noted. No raccoon eyes noted Eyes: PERRLA. EOMI. Conjunctiva and sclera normal. Eyelids normal. ENT: TM's Normal. Pharynx normal. Uvula midline. Moist mucous membranes. No trismus noted. No drooling noted. No muffled voice noted. Neck: Normal inspection. Neck supple. No adenopathy. No meningeal signs. No neck mass noted. CVS: Tachycardic heart rate and rhythm. Heart sound normal. No murmurs noted. Pulses equal to all extremities. Respiratory: No respiratory distress. Painless inspiration. Coarse lung sounds with wheezing noted. Chest nontender. No accessory muscle usage noted or decreased air movement noted. Abdomen: Soft and nontender. Bowel sounds normal in all 4 quadrants. No distention noted. No organomegaly noted. No visible injury noted. Back: No CVA tenderness. Full range of motion noted. Skin: Skin warm and dry. Normal skin color. Normal skin turgor. No rashes/lesions/lacerations noted. Extremities: No lower extremity edema. Right-sided weakness per baseline. Right-sided torticollis. Extremities nontender. Neuro: cranial nerves 2-12 intact, no focal neural deficits, strength 5/5 to all extremities, No motor deficit. No sensory deficit. Course Course Course Narrative: 65-year-old female presents for respiratory symptoms. Patient does have a history of brain cancer, right-sided torticollis and weakness, history of aspiration pneumonia. Will order CT of chest, COVID testing, and labs. While patient is tachycardic and does have a significant past medical history giving her likelihood of PE, she is on Xarelto 20 mg daily. Patient does have a recent exposure at judaism were multiple people have tested positive for COVID-19. 12:30 a.m. COVID testing is positive. Discussion with patient and granddaughter, plan is to discontinue labs. Patient's oxygenation saturation is 98% on room air. Plan of care is to discharge home with supportive measures. CT scan has been completed. Family does understand patient's symptoms exacerbate that she should return to the emergency department for care 12:55 a.[address]. upon returning from CT scan patient noted to have an 84% on room air with a good pleth. Care plan has changed to admission for COVID hypoxia. I did discuss this case with hospitalist, will continue with labs, give dexamethasone, ceftriaxone, azithromycin and Flagyl. Patient does have a significant risk for aspiration and has had multiple aspirations in the past. EKG is pending at this time. MDM - SOB/Dyspnea MDM Narrative Medical decision making narrative: COVID-19, hypoxia, aspiration Differential Diagnosis Differential diagnosis: Likely acute exacerbation of chronic obstructive airways disease and pneumonia Medical Records Attestation: I reviewed the patient's medical records. Lab Data Attestation: I reviewed the patient's lab results. Labs: Lab Results 02/11/21 Range/Units 00:01 COVID-19 (JURGEN) Positive A (Negative) COVID-19 Clin Com See Note Imaging Data Chest CT: Attestation: I personally reviewed and interpreted this imaging study as follows: Radiologist's impression: EXAMINATION: CT CHEST WITHOUT CONTRAST CLINICAL INFORMATION: Dyspnea. Shortness of breath. Covid positive.? COMPARISON: Radiograph 11/15/2020. CT 07/06/2020.? TECHNIQUE: Multidetector volumetric CT imaging of the chest was done. Axial MIP volume rendering provided. Sagittal and coronal reformatted images were obtained.? This CT examination was performed using dose optimization techniques as appropriate, variously including the following: *Automated exposure control *Adjustment of mA and/or kV according to patient size (this includes techniques or standardized protocols for targeted exams where dose is matched to indication/reason for exam; i.e. extremities or head) *Use of iterative reconstruction technique DLP: 269 mGy-cm FINDINGS: LUNGS: The central airways are patent. Motion limits evaluation of the lung parenchyma. No dense consolidation. No significant groundglass changes. Minimal basilar atelectasis. No pulmonary mass. No definite pulmonary nodules identified. No pneumothorax.? MEDIASTINUM: Normal heart size. No pericardial effusion. No mediastinal lymphadenopathy. Coronary artery calcifications are present.? PLEURA: There is no pleural effusion. No pleural mass or thickening.? AXILLA: No lymphadenopathy.? UPPER ABDOMEN: Unremarkable.? OSSEOUS STRUCTURES: No acute or suspicious osseous abnormality. Mild degenerative changes of the spine.? CT/CT chest wo con IMPRESSION: Motion limited study. No consolidation or significant groundglass opacities are seen in the lungs.? ? Fleischner guidelines were followed. Discharge Plan Discharge Clinical Impression: COVID-19, Hypoxia Patient Disposition: Admitted As Inpatient
[2021-02-11 00:16] LABS: COVID-19 Test Positive (Negative)
[2021-02-11] MEDS: dexAMETHasone sod phosphate 4 MG/ML VIAL 6 MG IVPUSH (01:37)
[2021-02-11] MEDS: cefTRIAXone sodium 1 GM in 0.9 % Sodium Chloride 50 ML IV (01:37)
[2021-02-11] MEDS: metroNIDAZOLE/NS 500 MG/100 ML PIGGYBACK 100 MG IV (01:40)
[2021-02-11 01:46] LABS: MANUAL DIFF FLAG NO
[2021-02-11 01:49] LABS: Basophils Percent Auto 0.4 % (0-2); Eosinophils Absolute Auto 0.1 X10*3/uL (0.0-0.4); Eosinophils Percent Auto 0.8 % (0-4); Hematocrit 44.2 % (37.0-47.0); Imm Gran Abs Auto 0.03 X10*3/uL (0.00-0.03); Imm Gran Pct Auto 0.3 % (0.0-0.4); Lymphocytes Absolute Auto 1.5 X10*3/uL (1.2-4.9); Lymphocytes Percent Auto 14.4 % (20-40); Mean Corpuscular HGB Conc 31.7 g/dl (31.0-35.0); Mean Corpuscular Hemoglobin 27.2 pg (27.0-33.0); Mean Platelet Volume 10.1 fL (9.4-12.3); Monocytes Absolute Auto 1.2 X10*3/uL (0.1-1.2); Monocytes Percent Auto 11.1 % (2-11); Neutrophils Absolute Auto 7.6 x10*3/uL (2.0-8.3); Platelet Count 260 X10*3/uL (160-400); Red Blood Count 5.14 X10*6/uL (4.20-5.50); Red Cell Distribution Width 13.6 % (11.0-16.0); White Blood Count 10.4 X10*3/uL (4.8-10.8)
[2021-02-11 02:02] LABS: Anion Gap 12 (12-20); Blood Urea Nitrogen 11 mg/dL (9-16); Calcium 9.4 mg/dL (8.4-10.2); Carbon Dioxide 31 mmol/L (22-29); Chloride 101 mmol/L (96-108); Creatinine Clr Calc Pharmacy 76.8; Estimated Glomerular Filt Rate > 60; Glucose Random 125 mg/dL (60-115); Potassium 3.4 mmol/L (3.3-5.1); Sodium 141 mmol/L (135-145)
[2021-02-11 02:08] LABS: B Type Natriuretic Peptide 31 pg/mL (<100)
--- NOTE | 2021-02-11 02:13 | PC.NURSE ---
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 On arrival RR 20 with audible moaning/grunting with each respiration - her daughter states this is not consistent with her basleine. The pt has obvious torticollis on arrival, her head fixed toward her RUE. Shortly after arrival to bed [address] chest and returned at which time her room air sat, with an accurate/good pleth, was 83%. ER HOT DIMPLING MACHINE OPERATOR Destiney made aware of this. In addition pt's HR 130's - again, ER HOT DIMPLING MACHINE OPERATOR notified. The pt was notified that she was positive for covid following the CT. At that time her daughter was at the bedside and she decided to register and be swabbed (it was negative and the daughter promptly left the ED after the result). Currently pt is resting in bed 7 on covid precautions, HR 128, O2 sat's 95% on 2L nasal cannula. Her RR is 24 with continue moaning/grunting with respirations and it appears hat she is using her intercostal muscles to aid in respiration. Hospitalist Oracio rubio texted regarding this
[2021-02-11 02:40] LABS: Lactic Acid 0.7 mmol/L (0.5-2.0)
[2021-02-11 03:14] LABS: Venous Blood Gas Refer to POC result
[2021-02-11] MEDS: Morphine Sulfate 2 MG/ML CARTRIDGE 1 MG IVPUSH (03:15)
[2021-02-11] MEDS: Azithromycin 500 MG in 0.9 % Sodium Chloride 250 ML 125 MG IV (03:15)
[2021-02-11 03:16] LABS: VBG Base Excess 17.7 mmol/L; VBG HCO3 49 mmol/L (22-26); VBG pCO2 91 mmHg; VBG pH 7.33 (7.32-7.43); VBG pO2 50 mmHg
--- NOTE | 2021-02-11 03:36 | PC.NURSE ---
Oracio DSOUZA to bedside. pt wqas assisted OOB into a recliner. upon arrival to recliner her RR decreased from 24 tyo 20, her HR decreased from 130's to 110, and O2 sats on 2L are 95%. Additional labs obtained per request Karoline DSOUZA. Pt sitting upright in recliner, wakes to verabl stimuli.
[2021-02-11 03:41] LABS: Troponin-I High Sensitivity 19.8 ng/L (<3.5-17.0)
[2021-02-11] MEDS: levETIRAcetam in NaCl (iso-os) 1,000 MG/100 ML PIGGYBACK 400 MG IV ×3 (04:45→14:50)
--- NOTE | 2021-02-11 04:57 | P.HPHOSP_ITS ---
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 History obtained from the patient's daughter who mentions that patient was exposed to COVID-19 about 3 days ago in the chart; for past 1 day she has been having shortness of breath, subsequently brought her to the hospital for further evaluation. Reports that she has chronic neck torticollis, denies any difficulty swallowing or breathing. Reports that she uses CPAP at night for her TERI. Mentions patient is mostly in the couch/recliner; does not more around the house much. Denies patient complaining of any chest pain palpitations lightheadedness or d izziness. Reports patient had cough with sputum production-does not know the color; At the time of my interview, patient is drowsy; on supplemental oxygen saturating 95-96%; on telemetry noted to be tachycardic between [id number]; sinus on EKG; moves all extremities equally; moans when called in with the name but not following commands. Per LEGAL RESEARCHER patient noted to be tachycardic; patient on presentation to the ER was saturating well; patient was taken to the CT scan and when moved from CT scan patient showed only became hypoxic. Placed on supplemental oxygen. Per patient's daughter patient has been fairly compliant with her home Keppra and baclofen. Review of all other systems is limited as the patient is not providing information. ER course: Per ER team patient when moved during the CT scan became hypoxic; placed on supplemental oxygen; COVID-19 was positive; CT chest showed no acute findings; patient was already on rivaroxaban. Restrained troponin was 8 followed by 19; EKG nonischemic; patient was in empirically given ceftriaxone, Flagyl, azithromycin initially in the ER given concerns for possible aspiration-> later CT chest came back negative. [facility] Medical History Brain cancer DVT (deep venous thrombosis) HTN (hypertension) Seizure Stroke Unspecified urinary incontinence Family History Mother Diabetes Father Heart disease Family/Other Breast cancer Brain cancer Diabetes Pertinent family history: As mentioned above Surgical History H/O craniotomy Social History Alcohol intake: never Patient Tobacco Use Status: Never used Tobacco Use of substances other than those prescribed or required for medical reasons: No Advance Directives: Yes Advance Directives on File: Yes Advance Directives Date on File: 02/12/20 Current occupational status: disabled Current occupation: right handed Meds Allergies Allergy/AdvReac Type Severity Reaction Status Date / Time apple [Apple] Allergy Severe THROAT Verified 02/10/21 23:35 SWELLING pollen extracts [POLLEN] Allergy Intermediate SNEEZING Verified 02/10/21 23:35 COUGHING ALOT kiwi AdvReac Intermediate VOMITING Verified 02/10/21 23:35 [Kiwi (Actinidia Chinensis)] avocado [Avocado] AdvReac Mild VOMITING Verified 02/10/21 23:35 Active Medications: Current Medications Acetaminophen (Acetaminophen 325 Mg Tablet) 650 mg PO Q6H PRN PRN Reason: Pain, Mild (Pain Scale 1-3) Dexamethasone Sodium Phosphate (Dexamethasone Sod Phosphate 4 Mg/Ml Vial) 6 mg IVPUSH BEDTIME ANTONIA Levetiracetam (Keppra) 1,000 mg in 100 mls @ 400 mls/hr IV TID ANTONIA Melatonin (Melatonin 3 Mg Tablet) 6 mg PO BEDTIME PRN PRN Reason: Insomnia Senna (Sennosides 8.6 Mg Tablet) 17.2 mg PO BEDTIME PRN PRN Reason: Constipation Sodium Chloride (0.9 % Sodium Chloride Flush 3 Ml Syringe) 3 ml IVFLUSH QSHIFT [facility] Home Medications Medication Instructions Recorded Confirmed Last Taken Type loratadine 10 mg tablet 10 mg PO DAILY 07/07/20 11/24/20 Unknown History Physical Exam Vital Signs and Narrative: Vital Signs: Last Vital Signs Temp 99.7 F 02/10/21 23:35 Pulse 118 H 02/11/21 03:34 Resp 22 H 02/11/21 03:34 BP 124/78 02/11/21 03:34 Pulse Ox 95 02/11/21 03:34 BMI result Body Mass Index 23.9 Gen: Appears be in no acute distress HEENT: NCAT, Moist mucosa. Torticollis noted. Pulmonary: Coarse breath sounds. On supplemental oxygen. CVS: Normal S1-S2 Abdomen: BS+, Soft, Nontender Extremities: Warm well perfused Neuro: Drowsy. Moans to verbal commands. Moves all extremities equally. Results Labs CBC and Chem 7: 02/11/21 01:27 02/11/21 01:27 Labs: Laboratory Results - last 24 hr 02/11/21 02/11/21 02/11/21 00:01 01:27 01:27 MCV 86.0 MCH 27.2 MCHC 31.7 RDW 13.6 Plt Count 260 MPV 10.1 Immature Gran % (Auto) 0.3 Neut % (Auto) 73.0 Lymph % (Auto) 14.4 L [place] % (Auto) 11.1 H Eos % (Auto) 0.8 Baso % (Auto) 0.4 Lymph # (Auto) 1.5 [place] # (Auto) 1.2 Eos # (Auto) 0.1 Baso # (Auto) 0.0 Abs Immat Gran (auto) 0.03 Absolute Neuts (auto) 7.6 Absolute Nucleated RBC 0.000 Nucleated RBC % (auto) 0.0 VBG pH VBG pCO2 VBG pO2 VBG HCO3 VBG O2 Saturation VBG Base Excess Anion Gap 12 Estim Creat Clear Calc 76.8 Estimated GFR > 60 Random Glucose 125 H Lactic Acid Calcium 9.4 Troponin I High Sens B-Natriuretic Peptide COVID-19 (JURGEN) Positive A COVID-19 Clin Com See Note 02/11/21 02/11/21 02/11/21 01:27 01:27 01:27 MCV MCH MCHC RDW Plt Count MPV Immature Gran % (Auto) Neut % (Auto) Lymph % (Auto) [place] % (Auto) Eos % (Auto) Baso % (Auto) Lymph # (Auto) [place] # (Auto) Eos # (Auto) Baso # (Auto) Abs Immat Gran (auto) Absolute Neuts (auto) Absolute Nucleated RBC Nucleated RBC % (auto) VBG pH VBG pCO2 VBG pO2 VBG HCO3 VBG O2 Saturation VBG Base Excess Anion Gap Estim Creat Clear Calc Estimated GFR Random Glucose Lactic Acid 0.7 Calcium Troponin I High Sens 8.0 B-Natriuretic Peptide 31 COVID-19 (JURGEN) COVID-19 Clin Com 02/11/21 02/11/21 03:06 03:09 MCV MCH MCHC RDW Plt Count MPV Immature Gran % (Auto) Neut % (Auto) Lymph % (Auto) [place] % (Auto) Eos % (Auto) Baso % (Auto) Lymph # (Auto) [place] # (Auto) Eos # (Auto) Baso # (Auto) Abs Immat Gran (auto) Absolute Neuts (auto) Absolute Nucleated RBC Nucleated RBC % (auto) VBG pH 7.33 VBG pCO2 91 VBG pO2 50 VBG HCO3 49 H VBG O2 Saturation 75.0 VBG Base Excess 17.7 Anion Gap Estim Creat Clear Calc Estimated GFR Random Glucose Lactic Acid Calcium Troponin I High Sens 19.8 H D B-Natriuretic Peptide COVID-19 (JURGEN) COVID-19 Clin Com Imaging Radiologist's Impressions: Impressions Chest CT 02/11/21 00:45 IMPRESSION: Motion limited study. No consolidation or significant groundglass opacities are seen in the lungs. Fleischner guidelines were followed. 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 Noted to have following conditions Altered mental status: Likely toxic metabolic encephalopathy. Patient had prior history of recurrent UTI. Urinalysis currently pending. CT chest showed no evidence of pneumonia. CT head pending COVID-19 positive ? Seizure: Lactate within normal limits. Per daughter patient sometimes have absence seizures. Patient is currently drowsy question postictal state. For prior records patient seems to be on Keppra t.i.d. will continue for now as IV form given patient is currently NPO until cleared by speech and Swallow team. Keppra levels pending COVID-19 infection: CT chest showed no acute pulmonary process. Patient was hypoxic initially placed on supplemental oxygen. Procalcitonin pending Continue Decadron. Id consult Tachycardia: Multifactorial. Monitor on telemetry. Diet: Family denies any swallowing difficulty. ER team concern for aspiration. Speech and swallow eval. For all other chronic conditions,Patient's home medications to be continued once cleared by speech and Swallow. History of TERI: Patient on CPAP intermittently at home. History of torticollis: Patient on baclofen, will continue. Patient intermittently gets botulinum injections. History of DVT/PE: Patient on rivaroxaban at home. To be continued. Code status: Full code. Discussed with the patient's daughter Quality Stroke Does the patient have a stroke diagnosis?: No VTE Prior VTE?: No VTE Risk Level:: Medical - moderate - high VTE Device Contraindication: Treatment Not Indicated VTE Drug Contraindication: N/A - Med Ordered
[2021-02-11 06:56] LABS: Basophils Percent Auto 0.2 % (0-2); Hematocrit 42.9 % (37.0-47.0); Hemoglobin 13.3 g/dl (12.0-16.0); Imm Gran Abs Auto 0.07 X10*3/uL (0.00-0.03); Imm Gran Pct Auto 0.6 % (0.0-0.4); Lymphocytes Absolute Auto 0.5 X10*3/uL (1.2-4.9); Lymphocytes Percent Auto 4.3 % (20-40); MANUAL DIFF FLAG SCAN; Mean Corpuscular Hemoglobin 26.9 pg (27.0-33.0); Mean Corpuscular Volume 86.7 fL (80.0-98.0); Mean Platelet Volume 9.9 fL (9.4-12.3); Monocytes Absolute Auto 0.3 X10*3/uL (0.1-1.2); Monocytes Percent Auto 2.8 % (2-11); Neutrophils Absolute Auto 10.9 x10*3/uL (2.0-8.3); Neutrophils Percent Auto 92.1 % (45-73); Platelet Count 240 X10*3/uL (160-400); Red Blood Count 4.95 X10*6/uL (4.20-5.50); Red Cell Distribution Width 13.6 % (11.0-16.0); SCAN SMEAR FLAG 1; White Blood Count 11.8 X10*3/uL (4.8-10.8)
[2021-02-11 07:15] LABS: Anion Gap 10 (12-20); Blood Urea Nitrogen 10 mg/dL (9-16); Calcium 8.9 mg/dL (8.4-10.2); Carbon Dioxide 30 mmol/L (22-29); Chloride 102 mmol/L (96-108); Creatinine Clr Calc Pharmacy 80.2; Estimated Glomerular Filt Rate > 60; Glucose Random 149 mg/dL (60-115); Potassium 3.3 mmol/L (3.3-5.1); Sodium 139 mmol/L (135-145)
[2021-02-11 07:32] LABS: Procalcitonin 0.07 ng/mL
[2021-02-11 07:40] LABS: SLIDE REVIEW VERIFIED
[2021-02-11] MEDS: 0.9 % Sodium Chloride Flush 3 ML SYRINGE IVFLUSH ×2 (09:39→20:03)
--- NOTE | 2021-02-11 09:49 | PC.NURSE ---
dr Malik down to see pt, need for UA to be obtained, pt lethargic with minimal responses, unsure of pt baseline. dr Malik to call family. pt placed on a bedpan. pt taken off 2L O2, SaO2 95% on Room air.
--- NOTE | 2021-02-11 10:00 | PHA.MEDREC ---
Pharmacy Consult ? Medication Reconciliation Pharmacy has completed the medication reconciliation. There are no remarkable issues. Spoke with Patient daughter to get an accurate medication list. Sally Beltran, PharmD
--- NOTE | 2021-02-11 13:45 | MHC.SL.SWA ---
Speech Pathologist Impression: Oral Phase Dysphagia Risk of Aspiration Due to: Medically Fragile Neurological Condition Dysphasia Diet Status: Downgrade Liquid Consistency and Strategies for Safe Swallow: Liquid Intake Recommendation: Thin Liquid Intake Strategies: Small Sips Liquids by Teaspoon Only Solid Food Consistency: Dietary Recommendations: Grnd/Mech Altered (NDD2) Additional Modifications to Solid Foods: Avoid liquid/solid combinations, as they may be difficult for pt. to manage/contain Oral Medication Intake: Crushed with Puree Compensatory Strategies and Precautions to be Taken for Safe Swallow: Sitting Upright (90 deg) Liquids from Spoon Alternate Liquids/Solids Supervision While Eating and Drinking for Safe Swallow: Total Supervision (1:1) Foods to Avoid: Combined textures: liquid/solid foods (e.g. cereals, soups) Swallowing Recommended Treatments: Compens. Strategy Educat. Recommendation for Speech: Inpatient Speech Therapy Comment: Pt presents with Oral Phase Dysphagia, with primary issue positioning while swallowing due to severe torticollis. Recommend DOWNGRADE from current regular diet to Ground/Mechanical (NDD2), with continuation of THIN Liquids, with meds Crushed in Puree. Pt will need full assist/supervision for all meals, with close monitor for s/s aspiration, residual food in oral cavity, and intake. Diet Downgrade recommendation communicated to MD, Nursing, Wildlife Control Operator, and Dietary by secure text, with downgrade entered by TAG MAKER in orders. TAG MAKER to continue to follow while inpatient, M-F, to reassess swallow, monitor toleration of recommended diet, advance diet if warranted. Frequency/Duration: M-F while inpt Date Range for Service Req: Timeline to reassess: Nitriles Lab Technician Clinican/Clinical Fellow: No Supervisory Statement: I have reviewed and agree with the student/clinical fellow's documentation: Speech Language Pathologist: Arminda Corbett M.A., CCC-TAG MAKER
--- NOTE | 2021-02-11 15:05 | MHC.CM.PN ---
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
--- NOTE | 2021-02-11 16:34 | P.PNIM_ITS ---
Subjective Subjective Date of Service: 02/11/21 Interval History: Admitted due to shortness of breath and cough, diagnosed to have COVID, on arrival concern about confusion and lethargy, at present patient at baseline answering questions appropriately history obtained via diplomatic interpreter/translator denies pain, denies shortness of breath, noted to have couple episodes of cough with clear phlegm. Review of Systems Review of Systems: Yes all other systems are reviewed and are negative Physical Exam Vital Signs: Vital Signs: Last Vital Signs Temp 99.1 F 02/11/21 14:17 Pulse 88 02/11/21 14:17 Resp 18 02/11/21 14:17 BP 148/77 H 02/11/21 14:17 Pulse Ox 97 02/11/21 14:17 BMI result Body Mass Index 23.9 General awake alert, resting comfortably in no acute distress. Neck flexed to right CVS regular rate rhythm, Respiratory lungs clear to auscultation, no respiratory distress, no wheeze, no rhonchi. Gastrointestinal abdomen soft, nontender, bowel sounds audible Extremities no edema. Neuro speech clear. Skin no rash Objective Data Active Medications Acetaminophen (Acetaminophen 325 Mg Tablet) 650 mg PO Q6H PRN PRN Reason: Pain, Mild (Pain Scale 1-3) Dexamethasone Sodium Phosphate (Dexamethasone Sod Phosphate 4 Mg/Ml Vial) 6 mg IVPUSH BEDTIME ANTONIA Levetiracetam (Keppra) 1,000 mg in 100 mls @ 400 mls/hr IV TID [facility] Last Admin: 02/11/21 14:50 Dose: 400 mls/hr Documented by: PRAVEEN Melatonin (Melatonin 3 Mg Tablet) 6 mg PO BEDTIME PRN PRN Reason: Insomnia Pharmacy Consult (Consult Rx Perform Med Rec) 1 each MISCELLANE ONCE PRN PRN Reason: Consult order Senna (Sennosides 8.6 Mg Tablet) 17.2 mg PO BEDTIME PRN PRN Reason: Constipation Sodium Chloride (0.9 % Sodium Chloride Flush 3 Ml Syringe) 3 ml IVFLUSH QSHIFT [facility] Last Admin: 02/11/21 09:39 Dose: 3 ml Documented by: SHAHRAM Labs CBC & Chem 7: 02/11/21 06:46 02/11/21 06:46 Labs: Laboratory Results - last 24 hr 02/11/21 02/11/21 02/11/21 00:01 01:27 01:27 MCV 86.0 MCH 27.2 MCHC 31.7 RDW 13.6 Plt Count 260 MPV 10.1 Immature Gran % (Auto) 0.3 Neut % (Auto) 73.0 Lymph % (Auto) 14.4 L [place] % (Auto) 11.1 H Eos % (Auto) 0.8 Baso % (Auto) 0.4 Lymph # (Auto) 1.5 [place] # (Auto) 1.2 Eos # (Auto) 0.1 Baso # (Auto) 0.0 Abs Immat Gran (auto) 0.03 Absolute Neuts (auto) 7.6 Absolute Nucleated RBC 0.000 Nucleated RBC % (auto) 0.0 Smear Tech's Comments VBG pH VBG pCO2 VBG pO2 VBG HCO3 VBG O2 Saturation VBG Base Excess Anion Gap 12 Estim Creat Clear Calc 76.8 Estimated GFR > 60 Random Glucose 125 H Lactic Acid Calcium 9.4 Troponin I High Sens B-Natriuretic Peptide Procalcitonin COVID-19 (JURGEN) Positive A [facility] Clin Com See Note 02/11/21 02/11/21 02/11/21 01:27 01:27 01:27 MCV MCH MCHC RDW Plt Count MPV Immature Gran % (Auto) Neut % (Auto) Lymph % (Auto) [place] % (Auto) Eos % (Auto) Baso % (Auto) Lymph # (Auto) [place] # (Auto) Eos # (Auto) Baso # (Auto) Abs Immat Gran (auto) Absolute Neuts (auto) Absolute Nucleated RBC Nucleated RBC % (auto) Smear Tech's Comments VBG pH VBG pCO2 VBG pO2 VBG HCO3 VBG O2 Saturation VBG Base Excess Anion Gap Estim Creat Clear Calc Estimated GFR Random Glucose Lactic Acid 0.7 Calcium Troponin I High Sens 8.0 B-Natriuretic Peptide 31 Procalcitonin COVID-19 (JURGEN) [facility]elligent Mobile Support 02/11/21 02/11/21 02/11/21 03:06 03:09 06:46 MCV 86.7 MCH 26.9 L MCHC 31.0 RDW 13.6 Plt Count 240 MPV 9.9 Immature Gran % (Auto) 0.6 H Neut % (Auto) 92.1 H Lymph % (Auto) 4.3 L [place] % (Auto) 2.8 Eos % (Auto) 0.0 Baso % (Auto) 0.2 Lymph # (Auto) 0.5 L [place] # (Auto) 0.3 Eos # (Auto) 0.0 Baso # (Auto) 0.0 Abs Immat Gran (auto) 0.07 H Absolute Neuts (auto) 10.9 H Absolute Nucleated RBC 0.000 Nucleated RBC % (auto) 0.0 Smear Tech's Comments VERIFIED VBG pH 7.33 VBG pCO2 91 VBG pO2 50 VBG HCO3 49 H VBG O2 Saturation 75.0 VBG Base Excess 17.7 Anion Gap Estim Creat Clear Calc Estimated GFR Random Glucose Lactic Acid Calcium Troponin I High Sens 19.8 H D B-Natriuretic Peptide Procalcitonin COVID-19 (JURGEN) COVID-19 Clin Com 02/11/21 02/11/21 06:46 06:46 MCV MCH MCHC RDW Plt Count MPV Immature Gran % (Auto) Neut % (Auto) Lymph % (Auto) [place] % (Auto) Eos % (Auto) Baso % (Auto) Lymph # (Auto) [place] # (Auto) Eos # (Auto) Baso # (Auto) Abs Immat Gran (auto) Absolute Neuts (auto) Absolute Nucleated RBC Nucleated RBC % (auto) Smear Tech's Comments VBG pH VBG pCO2 VBG pO2 VBG HCO3 VBG O2 Saturation VBG Base Excess Anion Gap 10 L Estim Creat Clear Calc 80.2 Estimated GFR > 60 Random Glucose 149 H Lactic Acid Calcium 8.9 Troponin I High Sens B-Natriuretic Peptide Procalcitonin 0.07 COVID-19 (JURGEN) COVID-19 Clin Com Assessment and Plan (1) COVID-19: Status: Acute (2) Encephalopathy acute: Status: Acute (3) Essential hypertension: Status: Acute (4) Seizure: Status: Acute (5) HTN (hypertension): Status: Acute (6) DVT (deep venous thrombosis): Status: Acute Assessment and Plan: 65-year-old female with a past medical history of hypertension, DVT/PE, CVA, brain tumor, TERI on CPAP, PVCs, seizure, torticollis of the neck-on baclofen, botulinum injections; presented to the hospital today with a chief complaint of shortness of breath.? Noted to have following conditions Toxic metabolic encephalopathy. Question etiology, normal renal function , low normal potassium, will rule out UTI This a.m. patient noted to be at baseline answering questions appropriately, case discussed with patient's daughter she feels patient is at baseline History of recurrent UTIs to daughter wishes to rule out urine infection CT chest showed no evidence of pneumonia.? CT head showed no acute abnormality COVID-19 positive No seizure-like activity noted in-house Patient evaluated by speech therapist and recommended to continue thin liquids and ground mechanical diet Spoke with patient's daughter MATTHEW [phone] History of seizure Lactate within normal limits.? Per daughter patient sometimes have absence seizures Will resume home dose of Keppra, seizure precaution COVID-19 infection:? CT chest showed no acute pulmonary process Patient oxygenation remains stable on room.?Procalcitonin 0.07 DC Decadron patient does not qualify for remdesivir Tachycardia:? Resolved question secondary to anxiety History of TERI: on CPAP intermittently at home. History of torticollis: Continue baclofen, received botulinum injections and being followed closely as outpatient History of DVT/PE: cont.rivaroxaban Code status: Full code.? Quality Stroke Does the patient have a stroke diagnosis?: No VTE Prior VTE?: No VTE Risk Level:: Medical - moderate - high VTE Device Contraindication: Treatment Not Indicated VTE Drug Contraindication: N/A - Med Ordered
--- NOTE | 2021-02-11 18:15 | PC.NURSE ---
nurse to nurse to micah on [facility]
[2021-02-11] MEDS: Rivaroxaban 20 MG TABLET PO (20:03)
[2021-02-11] MEDS: ondansetron HCL 4 MG/2 ML VIAL IVPUSH (20:27)
--- NOTE | 2021-02-11 22:40 | P.CNID_ITS ---
History of Present Illness Data of Consult Service Date: 02/11/21 Requesting physician: Angeli Brunson Primary Care Provider: Nicole Denny NP HPI Reason for consult: fatigue She presents to hospital with fatigue and cough She was exposed to COVID at [employer] event and fatigue and cough for three days Review of Systems Review of Systems: Yes Unobtainable due to mental status PMFSH Past Medical History Medical History Brain cancer DVT (deep venous thrombosis) HTN (hypertension) Seizure Stroke Unspecified urinary incontinence Family History Family History Mother Diabetes Father Heart disease Family/Other Breast cancer Brain cancer Diabetes Surgical History Surgical History H/O craniotomy Social History Social History Alcohol intake: never Patient Tobacco Use Status: Never used Tobacco Advance Directives Date on File: 02/12/20 service: No Current occupational status: unemployed and disabled Current occupation: right handed Meds Allergies Allergy/AdvReac Type Severity Reaction Status Date / Time apple [Apple] Allergy Severe THROAT Verified 02/10/21 23:35 SWELLING pollen extracts [POLLEN] Allergy Intermediate SNEEZING Verified 02/10/21 23:35 COUGHING ALOT kiwi AdvReac Intermediate VOMITING Verified 02/10/21 23:35 [Kiwi (Actinidia Chinensis)] avocado [Avocado] AdvReac Mild VOMITING Verified 02/10/21 23:35 Active Medications: Current Medications Acetaminophen (Acetaminophen 325 Mg Tablet) 650 mg PO Q6H PRN PRN Reason: Pain, Mild (Pain Scale 1-3) Amlodipine Besylate (Amlodipine Besylate 5 Mg Tablet) 5 mg PO DAILY [facility]; Protocol Aspirin (Aspirin Enteric Coated 81 Mg Tablet.Dr) 81 mg PO DAILY ANTONIA Atorvastatin Calcium (Atorvastatin Calcium 40 Mg Tablet) 40 mg PO DAILY [facility] Levetiracetam (Levetiracetam Oral Soln 500 Mg/5 Ml) 1,000 mg PO TID ANTONIA Last Admin: 02/11/21 20:29 Dose: Not Given Documented by: Melatonin (Melatonin 3 Mg Tablet) 6 mg PO BEDTIME PRN PRN Reason: Insomnia Pharmacy Consult (Consult Rx Perform Med Rec) 1 each MISCELLANE ONCE PRN PRN Reason: Consult order Rivaroxaban (Rivaroxaban 20 Mg Tablet) 20 mg PO BEDTIME [facility] Last Admin: 02/11/21 20:03 Dose: 20 mg Documented by: Senna (Sennosides 8.6 Mg Tablet) 17.2 mg PO BEDTIME PRN PRN Reason: Constipation Sodium Chloride (0.9 % Sodium Chloride Flush 3 Ml Syringe) 3 ml IVFLUSH QSHIFT [facility] Last Admin: 02/11/21 20:03 Dose: 3 ml Documented by: Physical Exam Vital Signs: Vital Signs: Last Vital Signs Temp 97.8 F 02/11/21 19:50 Pulse 99 02/11/21 19:50 Resp 18 02/11/21 19:50 BP 145/65 H 02/11/21 19:50 Pulse Ox 96 02/11/21 19:50 BMI result Body Mass Index 23.9 Const: General: cooperative HENMT: Head: Yes normal to inspection Eyes: General: appearance normal, both eyes and all related structures Resp: Effort & Inspection: normal respiratory effort Cardio: Rate: regular rate Rhythm: regular rhythm GI: Palpation (GI): Soft to palpation and nontender Extrem: General: Yes normal to inspection Results Labs CBC & Chem 7: 02/11/21 06:46 02/11/21 06:46 Labs: Short CBC 02/11/21 02/11/21 Range/Units 01:27 06:46 WBC 10.4 11.8 H (4.8-10.8) X10*3/uL Hgb 14.0 13.3 (12.0-16.0) g/dl Hct 44.2 42.9 (37.0-47.0) % Plt Count 260 240 (160-400) X10*3/uL BMP 02/11/21 02/11/21 01:27 06:46 Sodium 141 139 Potassium 3.4 3.3 Chloride 101 102 Carbon Dioxide 31 H 30 H BUN 11 10 Creatinine 0.70 0.67 Calcium 9.4 8.9 Assessment and Plan (1) Encephalopathy acute: Status: Acute (2) COVID-19: Status: Acute There are no oxygen needs She is at some risk due to age for developing severe disease She is candidate for sotrovimsb and paxlovid to prevent severe disease COVID but they are not readily available Would recommend trying the three day Remdesivir plan as Remdesivir does treat omicron with 200 mg first day and then 100 mg day 2 and 3.
[2021-02-11] MEDS: QUEtiapine Fumarate 25 MG TABLET PO (22:57)
[2021-02-12] VITALS (12 sets, daily range): BP systolic 115–178; BP diastolic 62–78; PULSE 89–112; RESP 18–20; TEMP 36.1–38.2; O2SAT 87–100; BMI 23.9
--- NOTE | 2021-02-12 01:37 | PC.NURSE ---
approx 2200 pt c/o nausea & wretching - notified Dr. Narayanan & new order for zofran received. zofran 4mg iv given with effect. later pulling @ leads consistently despite education. notified Dr. Narayanan & medicated with seroquel 25mg po for behavior of restlessness, hands with rhythmic motions (baseline per pt's dtr). s/p seroquel, pt resting quietly.
[2021-02-12] MEDS: Atorvastatin Calcium 40 MG TABLET PO (09:13)
[2021-02-12] MEDS: Aspirin Enteric Coated 81 MG TABLET.DR PO (09:14)
[2021-02-12] MEDS: amLODIPine Besylate 5 MG TABLET PO (09:14)
[2021-02-12] MEDS: levETIRAcetam Oral Soln 500 MG/5 ML 1000 MG PO ×3 (09:14→20:30)
[2021-02-12] MEDS: 0.9 % Sodium Chloride Flush 3 ML SYRINGE IVFLUSH ×3 (09:14→20:30)
--- NOTE | 2021-02-12 10:39 | MHC.SLORD ---
Speech Language Pathology Order Status: Attempted to see Pt this am, Pt sleeping, did not wake to name, sternal rub. Spoke with nurse. Pt only took some apple sauce this a.m., nurse reported difficulty feeding due to positioning. Recommended careful positioning and full assist for all meals due to torticollis, as pt has functional swallow but at risk due to positioning. INSTRUCTOR PRIVATE will continue to follow.
[2021-02-12] MEDS: hydroCHLOROthiazide 25 MG TABLET PO (11:25)
[2021-02-12 12:03] LABS: Appearance Urine HAZY; Color Urine YELLOW; Glucose Urine UA NEG (NEG); Leukocyte Esterase Urine NEG (NEG); Nitrite Urine NEG (NEG); Specific Gravity - Urine >= 1.030 (1.005-1.025); UACC Culture Trigger NO; Urine Blood 3+ (NEG); Urine Ketones NEG (NEG); Urine Protein NEG (NEG-TRACE)
[2021-02-12 12:12] LABS: Bacteria Urine TRACE /LPF; Squamous Epithelial Cell Urine TRACE /LPF; WBC Urine 0-2 /HPF (0-4)
--- NOTE | 2021-02-12 14:42 | P.PNIM_ITS ---
Subjective Subjective Date of Service: 02/12/21 Interval History: Offers no acute complaints, noted to have tachycardia on tele monitor, blood pressure elevated, patient only answers yes or no, spoke with patient's daughter, she informed that her diet spoke with her mother this morning and she sounded more lethargic, no overnight fevers oxygenation stable most of the part except 1 no oxygenation reading 87 on room air. Review of Systems Unable to obtain review of system since at baseline do not communicate well due to CVA brain tumor Physical Exam Vital Signs: Vital Signs: Last Vital Signs Temp 98.7 F 02/12/21 11:47 Pulse 90 02/12/21 11:47 Resp 18 02/12/21 11:47 BP 178/62 H 02/12/21 11:47 Pulse Ox 93 02/12/21 11:47 BMI result Body Mass Index 23.9 General awake alert, no acute distress.? Neck flexed to right, positive JVD CVS? regular rate rhythm, Respiratory lungs clear to auscultation, no respiratory distress, no wheeze, no rhonchi. Gastrointestinal abdomen soft, nontender, bowel sounds audible Extremities no edema. Neuro speech clear. Skin no rash Objective Data Active Medications Acetaminophen (Acetaminophen 325 Mg Tablet) 650 mg PO Q6H PRN PRN Reason: Pain, Mild (Pain Scale 1-3) Amlodipine Besylate (Amlodipine Besylate 5 Mg Tablet) 5 mg PO DAILY [facility]; Protocol Last Admin: 02/12/21 09:14 Dose: 5 mg Documented by: BLANCHE Aspirin (Aspirin Enteric Coated 81 Mg Tablet.) 81 mg PO DAILY [facility] Last Admin: 02/12/21 09:14 Dose: 81 mg Documented by: BLANCHE Atorvastatin Calcium (Atorvastatin Calcium 40 Mg Tablet) 40 mg PO DAILY [facility] Last Admin: 02/12/21 09:13 Dose: 40 mg Documented by: BLANCHE Hydrochlorothiazide (Hydrochlorothiazide 25 Mg Tablet) 25 mg PO DAILY [facility]; Protocol Last Admin: 02/12/21 11:25 Dose: 25 mg Documented by: BLANCHE Levetiracetam (Levetiracetam Oral Soln 500 Mg/5 Ml) 1,000 mg PO TID [facility] Last Admin: 02/12/21 09:14 Dose: 1,000 mg Documented by: BLANCHE Melatonin (Melatonin 3 Mg Tablet) 6 mg PO BEDTIME PRN PRN Reason: Insomnia Pharmacy Consult (Consult Rx Perform Med Rec) 1 each MISCELLANE ONCE PRN PRN Reason: Consult order Rivaroxaban (Rivaroxaban 20 Mg Tablet) 20 mg PO BEDTIME [facility] Last Admin: 02/11/21 20:03 Dose: 20 mg Documented by: VLADIMIR Senna (Sennosides 8.6 Mg Tablet) 17.2 mg PO BEDTIME PRN PRN Reason: Constipation Sodium Chloride (0.9 % Sodium Chloride Flush 3 Ml Syringe) 3 ml IVFLUSH QSHIFT [facility] Last Admin: 02/12/21 09:14 Dose: 3 ml Documented by: BLANCHE Labs CBC & Chem 7: 02/11/21 06:46 02/11/21 06:46 Labs: Laboratory Results - last 24 hr 02/12/21 11:36 Urine Color YELLOW Urine Appearance HAZY Urine pH 6.0 Ur Specific [place] >= 1.030 H Urine Protein NEG Urine Glucose (UA) NEG Urine Ketones NEG Urine Blood 3+ H Urine Nitrite NEG Ur Leukocyte Esterase NEG Urine RBC 15-29 H Urine WBC 0-2 Ur Squamous Epith Cells TRACE Urine Bacteria TRACE Assessment and Plan (1) COVID-19: Status: Acute (2) Hypoxia: Status: Acute (3) Essential hypertension: Status: Acute (4) Torticollis, acquired: Status: Acute Assessment and Plan: 65-year-old female with a past medical history of hypertension, DVT/PE, CVA, brain tumor, 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 Noted to have following conditions Toxic metabolic encephalopathy.? Resolved, seem to be at baseline Urinalysis unremarkable CT chest showed no evidence of pneumonia.? CT head showed no acute abnormality COVID-19 positive No seizure-like activity noted in-house Patient evaluated by speech therapist and recommended to continue thin liquids and ground mechanical diet Spoke with patient's daughter MATTHEW [phone] and updated patient's clinical condition. Tachycardia/elevated blood pressure Question related to anxiety, noted to have elevated JVD will give IV Lasix although BNP and chest x-ray unremarkable Will repeat chest x-ray/bnp/bmp, close clinical follow-up Question anxiety, consider anxiolytics if symptoms persist. History of seizure? Lactate within normal limits.? Per daughter patient sometimes have absence seizures Will resume home dose of Keppra, seizure precaution COVID-19 infection:? CT chest showed no acute pulmonary process Patient oxygenation remains stable on room air, only noted to have low oxygenation once 87% but oxygenation came right back up, procalcitonin 0.07 patient does not qualify for remdesivir History of TERI: on CPAP intermittently at home. History of torticollis:? Continue baclofen, receives botulinum injections and being followed closely as outpatient History of DVT/PE: cont.rivaroxaban Code status: Full code.? Quality Stroke Does the patient have a stroke diagnosis?: No VTE Prior VTE?: No VTE Risk Level:: Medical - moderate - high VTE Device Contraindication: Treatment Not Indicated VTE Drug Contraindication: N/A - Med Ordered
[2021-02-12] MEDS: Potassium Chloride ER 20 MEQ TAB.ER.PRT 40 MEQ PO (15:28)
[2021-02-12] MEDS: Furosemide 20 MG/2 ML VIAL IVPUSH (15:28)
[2021-02-12] MEDS: LORazepam 0.5 MG TABLET PO (15:29)
[2021-02-12] MEDS: Acetaminophen 325 MG TABLET 650 MG PO (16:36)
[2021-02-12] MEDS: Rivaroxaban 20 MG TABLET PO (20:30)
[2021-02-12] MEDS: diphenhydrAMINE HCL 25 MG TABLET PO (22:21)
[2021-02-13 03:29] VITALS: BP 112/75; PULSE 80; RESP 20; TEMP 36.3; O2SAT 99
[2021-02-13 07:03] VITALS: BP 126/66; PULSE 96; RESP 18; TEMP 36.6; O2SAT 95
[2021-02-13 08:40] LABS: B Type Natriuretic Peptide 28 pg/mL (<100)
[2021-02-13 09:00] LABS: Anion Gap 9 (12-20); Blood Urea Nitrogen 17 mg/dL (9-16); Calcium 9.4 mg/dL (8.4-10.2); Carbon Dioxide 41 mmol/L (22-29); Chloride 97 mmol/L (96-108); Creatinine Clr Calc Pharmacy 66.4; Estimated Glomerular Filt Rate > 60; Glucose Random 106 mg/dL (60-115); Potassium 3.8 mmol/L (3.3-5.1); Sodium 143 mmol/L (135-145)
[2021-02-13] MEDS: hydroCHLOROthiazide 25 MG TABLET PO (09:13)
[2021-02-13] MEDS: levETIRAcetam Oral Soln 500 MG/5 ML 1000 MG PO ×2 (09:13→14:01)
[2021-02-13] MEDS: Aspirin Enteric Coated 81 MG TABLET.DR PO (09:13)
[2021-02-13] MEDS: Atorvastatin Calcium 40 MG TABLET PO (09:14)
[2021-02-13] MEDS: 0.9 % Sodium Chloride Flush 3 ML SYRINGE IVFLUSH ×2 (09:14→14:01)
[2021-02-13] MEDS: amLODIPine Besylate 5 MG TABLET PO (09:14)
[2021-02-13] MEDS: acetaZOLAMIDE 250 MG TABLET PO (10:36)
[2021-02-13 11:15] VITALS: BP 122/58; PULSE 88; RESP 18; TEMP 36.1; O2SAT 95
[2021-02-13 13:34] LABS: Anion Gap 11 (12-20); Blood Urea Nitrogen 19 mg/dL (9-16); Calcium 9.2 mg/dL (8.4-10.2); Carbon Dioxide 38 mmol/L (22-29); Chloride 98 mmol/L (96-108); Creatinine Clr Calc Pharmacy 68.1; Estimated Glomerular Filt Rate > 60; Glucose Random 95 mg/dL (60-115); Potassium 3.6 mmol/L (3.3-5.1); Sodium 143 mmol/L (135-145)
--- NOTE | 2021-02-13 14:03 | P.DS_ITS ---
DS: Providers Provider Date of Service: 02/13/21 Date of admission: 02/11/21 03:54 Primary care physician: Nicole Denny NP Consults: 02/11/21 03:54 Consult to Infectious Diseases Routine Consulting Provider: Bisi Reddy Reason for consultation: covid infection DS: Diagnosis Discharge Diagnosis (1) COVID-19: Status: Acute (2) Hypoxia: Status: Acute (3) Essential hypertension: Status: Acute (4) Torticollis, acquired: Status: Acute DS: Summary Hospital Course Hospital Course: Chief Complaint: Shortness of breath 65-year-old female with a past medical history of hypertension, DVT/PE, CVA, brain tumor, 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 History obtained from the patient's daughter who mentions that patient was exposed to COVID-19 about 3 days ago in the chart; for past 1 day she has been having shortness of breath, subsequently brought her to the hospital for further evaluation.? Reports that she has chronic neck torticollis, denies any difficulty swallowing or breathing.? Reports that she uses CPAP at night for her TERI.? Mentions patient is mostly in the couch/recliner; does not more around the house much.? Denies patient complaining of any chest pain palpitations lightheadedness or dizziness.? Reports patient had cough with sputum production-does not know the color; At the time of my interview, patient is drowsy; on supplemental oxygen saturating 95-96%; on telemetry noted to be tachycardic between [id number]; sinus on EKG; moves all extremities equally; moans when called in with the name but not following commands. Per PREPARATION ROOM WORKER patient noted to be tachycardic; patient on presentation to the ER was saturating well; patient was taken to the CT scan and when moved from CT scan patient showed only became hypoxic.? Placed on supplemental oxygen. Per patient's daughter patient has been fairly compliant with her home Keppra and baclofen. ER course: Per ER team patient when moved during the CT scan became hypoxic; placed on supplemental oxygen; COVID-19 was positive; CT chest showed no acute findings; patient was already on rivaroxaban.? Restrained troponin was 8 followed by 19; EKG nonischemic; patient was in empirically given ceftriaxone, Flagyl, azithromycin initially in the ER given concerns for possible aspiration-> later CT chest came back negative. 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 On admission there was concern for confusion patient diagnosed to have Toxic metabolic encephalopathy no acute infection found with normal urinalysis, CT head showed no acute abnormality, CT chest showed no evidence of pneumonia question related to COVID-19 infection no seizure-like activity noted patient seems to be at baseline therefore recommend to continue all home medications Patient noted to Tachycardia/elevated blood pressure question related to anxiety , she was noted to have fullness of neck veins, therefore treated with low-dose IV Lasix repeat chest x-ray was unremarkable, this a.m. patient seems to be hemodynamically stable with no further episodes of tachycardia, tachypnea, she was noted to have elevated bicarb therefore recommend to hold hydrochlorothiazide tomorrow repeat bicarb is trending down . Noted to have chronically elevated bicarb recommend to follow PATEL parra. History of TERI: on CPAP intermittently at home. History of torticollis:? Continue baclofen. Time Spent with Patient Time attestation: Total time spent providing and/or coordinating discharge services: Discharge coordination time: Greater than 30 minutes Quality: Stroke Does the patient have a stroke diagnosis?: No Physical Exam Vital Signs: Vital Signs: Last Vital Signs Temp 97 F 02/13/21 11:15 Pulse 88 02/13/21 11:15 Resp 18 02/13/21 11:15 BP 122/58 L 02/13/21 11:15 Pulse Ox 95 02/13/21 11:15 BMI result Body Mass Index 23.9 General awake aler t, no acute distre ss.? Neck flexed t o right,no JVD CVS ? regular rate rhy thm, Respiratory l ungs clear to ausc ultation, no respi ratory distress, n o wheeze, no rhonc hi. Gastrointestin al abdomen soft, n ontender, bowel so unds audible Extre mities no edema. N euro speech clear. Skin no rash DS: Data Data Completed and Pending Labs on day of discharge: Laboratory Results - last 24 hr 02/13/21 02/13/21 02/13/21 07:56 07:56 12:47 Sodium 143 143 Potassium 3.8 3.6 Chloride 97 98 Carbon Dioxide 41 H* D 38 H Anion Gap 9 L 11 L BUN 17 H D 19 H Creatinine 0.81 0.79 Estim Creat Clear Calc 66.4 68.1 Estimated GFR > 60 > 60 Random Glucose 106 95 Calcium 9.4 9.2 B-Natriuretic Peptide 28 Discharge Plan Discharge Patient Disposition: Home, Self-Care Discharge Diagnosis: Acute toxic metabolic encephalopathy COVID-19 infection Acute hypoxic respiratory failure Tachycardia Referrals: Nicole Denny SENIOR COST ACCOUNTANT [Primary Care Provider] - 1 Week Discharge Medications: Continued atorvastatin 40 mg tablet 40 mg PO DAILY 30 Days Qty: 30 RF: 5 (DME) miscellaneous medical supply Misc See Rx Instructions .ROUTE .MEDSUPPLY Qty: 240 RF: 6 Xarelto 20 mg tablet 20 mg PO BEDTIME 90 Days Qty: 90 RF: 1 amlodipine 5 mg tablet 5 mg PO DAILY Qty: 90 RF: 2 aspirin 81 mg tablet,delayed release (DR/EC) 81 mg PO DAILY Qty: 90 RF: 0 levetiracetam 100 mg/mL solution 1,000 mg PO TID 30 Days Qty: 900 RF: 4 Held hydrochlorothiazide 25 mg tablet 25 mg PO DAILY 90 Days Qty: 90 RF: 3 Hold Instructions: Resume on 02/15/21. Discharge Orders: Discharge Order (Routine); Ordered 02/13/21 Ordered By: Anai Malik Diet: advance to usual diet Activity on Discharge: As tolerated Stand Alone Forms: Patient Portal Discharge page Care Plan Goals: COVID-19/mild hypoxia/encephalopathy, confusion resolved oxygenation remains stable Elevated bicarb likely due to dehydration hold hydrochlorothiazide tomorrow and resume from 02/15 Health Concerns: Torticollis/hypertension/cva Plan of Treatment: Outpatient follow-up with primary care physician Assessment: As per discharge summary Patient Instructions: Covid-19 Viral Syndrome and Novel Coronavirus (ED) Ember/Kasandra, COVID-19 (Coronavirus Disease 2019) (ED)
--- NOTE | 2021-02-13 14:12 | MHC.CM.PN ---
Patient has been medically cleared for dc to home today, self care. Last IMM addressed 02/11/21.
--- NOTE | 2021-02-13 14:16 | MHC.CM.PN ---
Patient has been medically cleared for dc to home today. Patient was active with [facility], who has been made aware of today's dc.Last IMM addressed on 02/11/21.
--- NOTE | 2021-02-13 14:29 | MHC.CM.PN ---
RN provided CM with the dc address. Patient will dc to [address] [facility] today (next available from [facility]).
[2021-02-13 15:13] VITALS: BP 95/63; PULSE 88; RESP 15; TEMP 36.6; O2SAT 93
--- NOTE | 2021-02-13 15:29 | MHC.CM.PN ---
CM called [facility] at [phone] for an ETA and CM was told that [facility] does not have access to [facility] today and that there are 6 calls ahead of this one and ETA is midnight. CM reached out to [facility] and [facility], who has NO availability today. CM spoke with Daughter/Jessie at [phone], who indicated that Patient's will be on his way to strip picker Patient.MERCEDES Krishnan and Laly have been notified.
[2021-02-16 08:31] LABS: Levetiracetam Keppra 13.2 mcg/mL (12.0-46.0)
== END 2021-02-13 16:27 | disposition home health service (06) | DRG 177 ==
LOC: HO.ED 02-11 01:05 → HO.EDOVER 02-11 03:59 → HO.IMC 02-11 17:23
PROVIDERS: Nurse Practitioner Family; Admitting Provider Hospitalist; Emergency Provider Student in an Organized Health Care Education/Training Program; PCP Hospitalist; Visit Provider Hospitalist
DX: U07.1 COVID-19 (principal); G92.8 Other toxic encephalopathy; M43.6 Torticollis; R09.02 Hypoxemia; G47.33 Obstructive sleep apnea (adult) (pediatric); Z86.718 Personal history of other venous thrombosis and embolism; Z85.841 Personal history of malignant neoplasm of brain; Z87.440 Personal history of urinary (tract) infections; Z99.89 Dependence on other enabling machines and devices; Z79.01 Long term (current) use of anticoagulants; Z79.82 Long term (current) use of aspirin; Z79.899 Other long term (current) drug therapy
CPT/HCPCS: 36415; 70450; 71045; 71250; 80048; 80177; 81001; 82803; 83605; 83880; 84145; 84484; 85025; 87635; 92610; 93005; 94660; 99285; J0456; J0696; J1100; J1940; J1953; J2270; J2405; Q0163

== ENCOUNTER → 2021-08-30 12:59 | Outpatient (BNVA) | payer MEDICARE, MEDICAID, SELFPAY | PROVIDERS: PCP Hospitalist; Visit Provider Internal Medicine | DX: M43.6 Torticollis (principal) | CPT/HCPCS: 99202 ==

== ENCOUNTER 2021-09-30 19:30 | Emergency (ER) | payer MEDICARE, MEDICAID, SELFPAY ==
[2021-09-30 19:43] VITALS: BP 123/71; PULSE 78; RESP 16; TEMP 37.1; O2SAT 97; BMI 29.0
[2021-09-30 20:15] LABS: MANUAL DIFF FLAG NO
[2021-09-30 20:40] LABS: Anion Gap 13 (12-20); Blood Urea Nitrogen 18 mg/dL (9-16); Calcium 8.9 mg/dL (8.4-10.2); Carbon Dioxide 33 mmol/L (22-29); Chloride 100 mmol/L (96-108); Creatinine Clr Calc Pharmacy 82.8; Estimated Glomerular Filt Rate > 60; Glucose Random 115 mg/dL (60-115); Potassium 3.9 mmol/L (3.3-5.1); Sodium 142 mmol/L (135-145)
[2021-09-30 20:52] LABS: Basophils Absolute Auto 0.1 X10*3/uL (0.0-0.2); Basophils Percent Auto 0.6 % (0-2); Eosinophils Absolute Auto 0.2 X10*3/uL (0.0-0.4); Hematocrit 43.3 % (37.0-47.0); Hemoglobin 13.5 g/dl (12.0-16.0); Imm Gran Abs Auto 0.07 X10*3/uL (0.00-0.03); Imm Gran Pct Auto 0.9 % (0.0-0.4); Lymphocytes Percent Auto 24.3 % (20-40); Mean Corpuscular HGB Conc 31.2 g/dl (31.0-35.0); Mean Corpuscular Hemoglobin 27.2 pg (27.0-33.0); Mean Corpuscular Volume 87.3 fL (80.0-98.0); Mean Platelet Volume 10.4 fL (9.4-12.3); Monocytes Absolute Auto 0.7 X10*3/uL (0.1-1.2); Monocytes Percent Auto 8.7 % (2-11); Neutrophils Absolute Auto 5.1 x10*3/uL (2.0-8.3); Neutrophils Percent Auto 63.5 % (45-73); Platelet Count 306 X10*3/uL (160-400); Red Blood Count 4.96 X10*6/uL (4.20-5.50); Red Cell Distribution Width 13.2 % (11.0-16.0); White Blood Count 8.1 X10*3/uL (4.8-10.8)
== END 2021-10-01 02:49 | disposition left against medical advice (07) ==
PROVIDERS: Emergency Provider Emergency Medicine
DX: R31.9 Hematuria, unspecified (principal)
CPT/HCPCS: 36415; 80048; 85025; 99281; 99283

== ENCOUNTER 2021-10-10 13:40 | Emergency (ER) | payer MEDICARE, MEDICAID, SELFPAY ==
--- NOTE | ~2021-10-10 | CT_ITS ---
EXAMINATION: CT HEAD WITHOUT IV CONTRAST INDICATION: Breakthrough seizure. COMPARISON: Head CT 02/11/2021 TECHNIQUE: Multidetector CT acquisitions of the head was obtained without IV contrast. This CT examination was performed using dose optimization techniques as appropriate, variously including the following: *Automated exposure control *Adjustment of mA and/or kV according to patient size (this includes techniques or standardized protocols for targeted exams where dose is matched to indication/reason for exam; i.e. extremities or head) *Use of iterative reconstruction technique FINDINGS: Right frontal craniotomy changes are again noted. A surgical clip within the anterior right frontal region is again noted. Chronic encephalomalacia and gliosis involving the inferior frontal lobes with associated exvacuodilatation of the frontal horns again noted and is likely similar to the prior examination accounting for technical differences. It would be very difficult to exclude any superimposed acute pathology in this area is due to the degree of artifact and chronic changes. Limited assessment for acute blood products due to the degree of artifact with none definitively seen. There is no intracranial hydrocephalus, extra-axial surface collection, midline shift, or other herniation pattern. No definite acute infarcts. The basilar cisterns are preserved. No significant soft tissue abnormality. Diffuse thickening of the bony calvarium again noted. Imaged paranasal sinuses and mastoid air cells are clear. CT/CT head/brain wo con IMPRESSION: Study is limited by artifact from patient's significantly obliqued positioning. Chronic encephalomalacia and gliosis involving the inferior frontal lobes with associated exvacuodilatation of the frontal horns again noted and is likely similar to the prior examination accounting for technical differences. It would be very difficult to exclude any superimposed acute pathology in this area is due to the degree of artifact and chronic changes.
--- NOTE | 2021-10-10 13:49 | ED.GENADULT ---
HPI - General Adult General Chief complaint: Seizure Stated complaint: SEIZURE Time Seen by Provider: 10/10/21 13:44 Source: patient and EMS Mode of arrival: EMS History of Present Illness HPI narrative: 66-year-old female with a past medical history of brain cancer s/p chemo and radiation, DVT, hypertension, and recurrent seizures, presents to the emergency department following 3 seizures that occurred this morning. Patient is joined at bedside with a family friend/clinical care manager. Patient is unable to give accurate history, history provided by family friend/clinical care manager. According to the clinical care manager at bed side, last seizure occurred between 12 30-1 p.m, the 1st two were unwitnessed. It was reported that the patient receives 2 doses of 1,000mg Keppra daily however, the bottle she has lists that she is supposed to be getting 1,000mg 3 times a day. Patient was able to endorse headaches. Onset (ago): hour(s) Severity: mild Severity scale (1-10): 2 Relieving factors: none Exacerbating factors: none Associated symptoms: denies other symptoms Treatments prior to arrival: none Related Data Previous Rx's Medication Instructions Recorded aspirin 81 mg tablet,delayed 81 mg PO DAILY #90 tabs 04/05/21 release atorvastatin 40 mg tablet 40 mg PO DAILY #90 tabs 04/05/21 hydrochlorothiazide 25 mg tablet 25 mg PO DAILY #90 tabs 04/05/21 rivaroxaban 20 mg tablet (Xarelto) 20 mg PO BEDTIME #90 tabs 04/05/21 levetiracetam 100 mg/mL oral 1,000 mg (10 mL) PO TID #2,700 mL 05/05/21 solution amlodipine 5 mg tablet 5 mg PO DAILY #90 tabs 06/22/21 miscellaneous medical supply #[id number] ea 06/28/21 Allergies Allergy/AdvReac Type Severity Reaction Status Date / Time apple [Apple] Allergy Severe THROAT Verified 08/30/21 13:20 SWELLING pollen extracts [POLLEN] Allergy Intermediate SNEEZING Verified 08/30/21 13:20 COUGHING ALOT kiwi AdvReac Intermediate VOMITING Verified 08/30/21 13:20 [Kiwi (Actinidia Chinensis)] avocado [Avocado] AdvReac Mild VOMITING Verified 08/30/21 13:20 Review of Systems Constitutional: Constitutional: Reports no additional constitutional complaints, Denies chills, Denies fever(s) and Denies night sweats Eyes: Eyes: Reports no additional eye complaints, Denies blurry vision, Denies change in vision, Denies diplopia, Denies eye discharge, Denies loss of vision and Denies eye pain ENT: Denies dizziness Cardiovascular: Cardiovascular: Reports no additional cardiovascular complaints, Denies chest pain, Denies lightheadedness, Denies Loss of Consciousness and Denies dyspnea Respiratory: Respiratory: Reports no additional respiratory complaints and Denies dyspnea Gastrointestinal: Gastrointestinal: Reports no additional gastrointestinal complaints, Denies abdominal pain, Denies melena, Denies hematochezia, Denies change in bowel habits and Denies change in stool character Genitourinary: Genitourinary: Denies hematuria, Denies urinary frequency, Denies dysuria, Denies urinary incontinence, Denies urinary hesitancy and Denies urinary urgency Musculoskeletal: Musculoskeletal: Reports no additional musculoskeletal complaints, Denies numbness and Denies tingling Neurologic: Denies dizziness, Denies loss of vision, Denies numbness and Denies tingling Psychiatric: Psychiatric: Reports no additional psychiatric complaints Endocrine: Endocrine: Reports no additional endocrine complaints Hematologic/Lymphatic: Hematologic/Lymphatic: Reports no additional hematologic/lymphatic complaints Allergic/Immunologic: Allergic/Immunologic: Reports no additional allergic/immunologic complaints PMFSH Past Medical History Attestation statement: The following information was validated with the patient. (information was validated by patient's clinical care manager at bedside) Source: old records reviewed and other (information was validated by patient's clinical care manager at bedside) Medical History Brain cancer DVT (deep venous thrombosis) Essential hypertension HTN (hypertension) Seizure Stroke Torticollis, acquired Unspecified urinary incontinence Surgical History H/O craniotomy Family History Family History Mother Diabetes Father Heart disease Family/Other Breast cancer Brain cancer Diabetes Social History Social History Household Members: Spouse Housing: Unknown / Unable to assess Do you presently have visiting nurse or other home services: Yes (relay repairer in am & pm for ADL's) Alcohol intake: never Patient Tobacco Use Status: Never used Tobacco Advance Directives: Yes Advance Directives on File: Yes Advance Directives Date on File: 02/12/20 service: No Current occupational status: unemployed and disabled Current occupation: right handed Physical Exam ED Vital Signs: Vital Signs - 24 hr 10/10/21 14:20 10/10/21 15:20 10/10/21 18:44 Temperature 98 F 100.8 F H 98.7 F Pulse Rate 89 91 Respiratory Rate 14 29 H Blood Pressure 187/89 H 152/75 H Pulse Oximetry 95 95 Oxygen Delivery Method Room Air Room Air 10/10/21 20:15 Temperature 99.2 F Pulse Rate 84 Respiratory Rate 16 Blood Pressure 135/71 Pulse Oximetry 97 Oxygen Delivery Method Room Air BMI result Body Mass Index 26.9 Const General: cooperative, no acute distress, alert and awake Nutritional Appearance: well nourished Orientation/consciousness: patient oriented x3 Limitations: language barrier HENMT Head: Yes normal to inspection and Yes atraumatic Ears: hearing grossly normal bilaterally and external ears normal General nose exam: Normal external nose present, no nasal discharge noted and no epistaxis Face and sinus: Yes normal facial exam, No abrasion and No laceration Mouth: Normal oral and palatal mucosa present, no drooling and no muffled voice Eyes General: appearance normal, both eyes and all related structures Periorbital: periorbital findings normal Eyelids: Yes eyelids normal Conjunctivae: conjunctivae normal Pupils: Equal, round and reactive pupils present EOM: EOMs intact bilaterally Neck Other: patient's head is permanently leaning to the right side Neck: Yes no lymphadenopathy Chest Chest palpation & inspection: normal inspection of the chest Resp Effort & Inspection: normal respiratory effort and able to speak in complete sentences Auscultation: clear to auscultation bilaterally Cardio Rate: regular rate Rhythm: regular rhythm GI Inspection: Yes normal to inspection Neuro General: patient oriented x3 and moves all extremities Cranial nerves: Yes Equal, round and reactive pupils present Cognition (Neuro): normal cognition Motor exam (neuro): 5/5 motor strength present throughout Sensory Exam: Normal double simultaneous stimulation for sensation Coordination: [id number] test normal Extrem General: Yes normal to inspection, Yes full ROM and Yes capillary refill normal Psych Appearance: grossly normal Mental Status: mental status grossly normal Affect: normal affect Attitude: cooperative Thought process: Normal thought process present Thought content: Normal thought content present Insight: Good insight present (Psych) Medical Decision Making MDM Narrative Medical decision making narrative: Patient is a 66 year old female presenting to the emergency department today with a breakthrough seizure. Patient's physical exam was unremarkable and is normal per her baseline. Patient's blood work was unremarkable. Patient's urine showed no acute process. Patient's EKG was unremarkable. Patient's head showed no acute process. When re-evaluating the patient and reviewing the patient's medications, it was discovered that the clinical care manager was only giving the patient 2,000 mg of Keppra per day instead of the prescribed 3,000mg she is supposed to be getting. I explained my physical exam findings as well as all test results to the patient and the patient's clinical care manager. I answered all questions asked by the patient and the patient's clinical care manager. Patient was given an additional 1,000mg of Keppra today to get her the appropriate total amount of medication she is supposed to be having. I explained to the patient and her clinical care manager that the patient's breakthrough seizure today was likely due to the inappropriate medication dispensing. I stressed the importance of the patient taking her medication as prescribed. I stressed the importance of the patient following up with her primary care provider and neurologist. I stressed the importance of the patient returning to the emergency department immediately if her symptoms were to worsen or if she were to develop any dizziness, shortness of breath, difficulty breathing, chest pain, blurry vision, loss of vision, nausea, vomiting, abdominal pain, fever, chills, back pain, or any other complaints. Patient's clinical care manager verbalized agreement and understanding with this treatment plan and discharge. Differential Diagnosis Differential Diagnosis: medication non-compliance, breakthrough seizure Medical Records Medical records reviewed: Yes I reviewed the patient's medical records. Lab Data Lab results reviewed: Yes I reviewed the patient's lab results. Result diagrams: 10/10/21 16:13 10/10/21 16:12 Labs: Lab Results 10/10/21 10/10/21 10/10/21 Range/Units 15:35 15:35 16:12 WBC (4.8-10.8) X10*3/uL RBC (4.20-5.50) X10*6/uL Hgb (12.0-16.0) g/dl Hct (37.0-47.0) % MCV (80.0-98.0) fL MCH (27.0-33.0) pg MCHC (31.0-35.0) g/dl RDW (11.0-16.0) % Plt Count (160-400) X10*3/uL MPV (9.4-12.3) fL Immature Gran % (Auto) (0.0-0.4) % Neut % (Auto) (45-73) % Lymph % (Auto) (20-40) % [place] % (Auto) (2-11) % Eos % (Auto) (0-4) % Baso % (Auto) (0-2) % Lymph # (Auto) (1.2-4.9) X10*3/uL [place] # (Auto) (0.1-1.2) X10*3/uL Eos # (Auto) (0.0-0.4) X10*3/uL Baso # (Auto) (0.0-0.2) X10*3/uL Abs Immat Gran (auto) (0.00-0.03) X10*3/uL Absolute Neuts (auto) (2.0-8.3) x10*3/uL Absolute Nucleated RBC (0.0-0.012) X10*3/uL Nucleated RBC % (auto) (0.0-0.2) /100WBC PT 24.5 H (10.0-13.1) SEC INR 2.1 H (0.9-1.1) APTT 34.4 (26.0-36.4) SEC VBG pH (7.32-7.43) VBG pCO2 mmHg VBG pO2 mmHg VBG HCO3 (22-26) mmol/L VBG O2 Saturation % VBG Base Excess mmol/L Sodium 141 (135-145) mmol/L Potassium 3.9 (3.3-5.1) mmol/L Chloride 101 (96-108) mmol/L Carbon Dioxide 30 H (22-29) mmol/L Anion Gap 14 (12-20) BUN 17 H (9-16) mg/dL Creatinine 0.76 (0.5-1.4) mg/dL Estim Creat Clear Calc 74.6 Estimated GFR > 60 Random Glucose 145 H (60-115) mg/dL Lactic Acid (0.5-2.0) mmol/L Calcium 9.0 (8.4-10.2) mg/dL Magnesium 2.0 (1.6-2.6) mg/dL Total Bilirubin 0.4 (0.0-1.0) mg/dL AST 16 (5-31) U/L ALT 18 (0-31) U/L Alkaline Phosphatase 89 (39-117) U/L Troponin I High Sens (<3.5-17.0) ng/L Total Protein 6.9 (6.5-8.0) g/dL Albumin 3.7 (3.5-5.0) g/dL Urine Color Urine Appearance Urine pH (5.0-8.0) Ur Specific [place] (1.005-1.025) Urine Protein (Neg-Trace) mg/dL Urine Glucose (UA) (Negative) mg/dL Urine Ketones (Negative) mg/dL Urine Blood (Negative) Urine Nitrite (Negative) Ur Leukocyte Esterase (Negative) Urine Opiates Screen (Not Detect) Urine Fentanyl Screen (Not Detect) Ur Barbiturates Screen (Not Detect) Ur Phencyclidine Scrn (Not Detect) Ur Amphetamines Screen (Not Detect) U Benzodiazepines Scrn (Not Detect) Urine Cocaine Screen (Not Detect) U Marijuana (THC) Screen (Not Detect) Ethyl Alcohol mg/dL COVID-19 (JURGEN) Negative (Negative) COVID-19 Clin Com See Note 10/10/21 10/10/21 10/10/21 Range/Units 16:12 16:12 16:12 WBC (4.8-10.8) X10*3/uL RBC (4.20-5.50) X10*6/uL Hgb (12.0-16.0) g/dl Hct (37.0-47.0) % MCV (80.0-98.0) fL MCH (27.0-33.0) pg MCHC (31.0-35.0) g/dl RDW (11.0-16.0) % Plt Count (160-400) X10*3/uL MPV (9.4-12.3) fL Immature Gran % (Auto) (0.0-0.4) % Neut % (Auto) (45-73) % Lymph % (Auto) (20-40) % [place] % (Auto) (2-11) % Eos % (Auto) (0-4) % Baso % (Auto) (0-2) % Lymph # (Auto) (1.2-4.9) X10*3/uL [place] # (Auto) (0.1-1.2) X10*3/uL Eos # (Auto) (0.0-0.4) X10*3/uL Baso # (Auto) (0.0-0.2) X10*3/uL Abs Immat Gran (auto) (0.00-0.03) X10*3/uL Absolute Neuts (auto) (2.0-8.3) x10*3/uL Absolute Nucleated RBC (0.0-0.012) X10*3/uL Nucleated RBC % (auto) (0.0-0.2) /100WBC PT (10.0-13.1) SEC INR (0.9-1.1) APTT (26.0-36.4) SEC VBG pH (7.32-7.43) VBG pCO2 mmHg VBG pO2 mmHg VBG HCO3 (22-26) mmol/L VBG O2 Saturation % VBG Base Excess mmol/L Sodium (135-145) mmol/L Potassium (3.3-5.1) mmol/L Chloride (96-108) mmol/L Carbon Dioxide (22-29) mmol/L Anion Gap (12-20) BUN (9-16) mg/dL Creatinine (0.5-1.4) mg/dL Estim Creat Clear Calc Estimated GFR Random Glucose (60-115) mg/dL Lactic Acid 1.2 (0.5-2.0) mmol/L Calcium (8.4-10.2) mg/dL Magnesium (1.6-2.6) mg/dL Total Bilirubin (0.0-1.0) mg/dL AST (5-31) U/L ALT (0-31) U/L Alkaline Phosphatase (39-117) U/L Troponin I High Sens 14.0 (<3.5-17.0) ng/L Total Protein (6.5-8.0) g/dL Albumin (3.5-5.0) g/dL Urine Color Urine Appearance Urine pH (5.0-8.0) Ur Specific [place] (1.005-1.025) Urine Protein (Neg-Trace) mg/dL Urine Glucose (UA) (Negative) mg/dL Urine Ketones (Negative) mg/dL Urine Blood (Negative) Urine Nitrite (Negative) Ur Leukocyte Esterase (Negative) Urine Opiates Screen (Not Detect) Urine Fentanyl Screen (Not Detect) Ur Barbiturates Screen (Not Detect) Ur Phencyclidine Scrn (Not Detect) Ur Amphetamines Screen (Not Detect) U Benzodiazepines Scrn (Not Detect) Urine Cocaine Screen (Not Detect) U Marijuana (THC) Screen (Not Detect) Ethyl Alcohol < 10 mg/dL COVID-19 (JURGEN) (Negative) COVID-19 Clin Com 10/10/21 10/10/21 10/10/21 Range/Units 16:13 16:18 18:49 WBC 12.2 H (4.8-10.8) X10*3/uL RBC 4.88 (4.20-5.50) X10*6/uL Hgb 13.1 (12.0-16.0) g/dl Hct 42.4 (37.0-47.0) % MCV 86.9 (80.0-98.0) fL MCH 26.8 L (27.0-33.0) pg MCHC 30.9 L (31.0-35.0) g/dl RDW 13.0 (11.0-16.0) % Plt Count 284 (160-400) X10*3/uL MPV 10.0 (9.4-12.3) fL Immature Gran % (Auto) 0.2 (0.0-0.4) % Neut % (Auto) 82.4 H (45-73) % Lymph % (Auto) 11.9 L (20-40) % [place] % (Auto) 4.6 (2-11) % Eos % (Auto) 0.4 (0-4) % Baso % (Auto) 0.5 (0-2) % Lymph # (Auto) 1.5 (1.2-4.9) X10*3/uL [place] # (Auto) 0.6 (0.1-1.2) X10*3/uL Eos # (Auto) 0.1 (0.0-0.4) X10*3/uL Baso # (Auto) 0.1 (0.0-0.2) X10*3/uL Abs Immat Gran (auto) 0.03 (0.00-0.03) X10*3/uL Absolute Neuts (auto) 10.0 H (2.0-8.3) x10*3/uL Absolute Nucleated RBC 0.000 (0.0-0.012) X10*3/uL Nucleated RBC % (auto) 0.0 (0.0-0.2) /100WBC PT (10.0-13.1) SEC INR (0.9-1.1) APTT (26.0-36.4) SEC VBG pH 7.49 H (7.32-7.43) VBG pCO2 40 mmHg VBG pO2 55 mmHg VBG HCO3 31 H (22-26) mmol/L VBG O2 Saturation 89.0 % VBG Base Excess 7.5 mmol/L Sodium (135-145) mmol/L Potassium (3.3-5.1) mmol/L Chloride (96-108) mmol/L Carbon Dioxide (22-29) mmol/L Anion Gap (12-20) BUN (9-16) mg/dL Creatinine (0.5-1.4) mg/dL Estim Creat Clear Calc Estimated GFR Random Glucose (60-115) mg/dL Lactic Acid (0.5-2.0) mmol/L Calcium (8.4-10.2) mg/dL Magnesium (1.6-2.6) mg/dL Total Bilirubin (0.0-1.0) mg/dL AST (5-31) U/L ALT (0-31) U/L Alkaline Phosphatase (39-117) U/L Troponin I High Sens (<3.5-17.0) ng/L Total Protein (6.5-8.0) g/dL Albumin (3.5-5.0) g/dL Urine Color Yellow Urine Appearance Clear Urine pH 7.0 (5.0-8.0) Ur Specific [place] 1.025 (1.005-1.025) Urine Protein Negative (Neg-Trace) mg/dL Urine Glucose (UA) Negative (Negative) mg/dL Urine Ketones Negative (Negative) mg/dL Urine Blood Negative (Negative) Urine Nitrite Negative (Negative) Ur Leukocyte Esterase Negative (Negative) Urine Opiates Screen (Not Detect) Urine Fentanyl Screen (Not Detect) Ur Barbiturates Screen (Not Detect) Ur Phencyclidine Scrn (Not Detect) Ur Amphetamines Screen (Not Detect) U Benzodiazepines Scrn (Not Detect) Urine Cocaine Screen (Not Detect) U Marijuana (THC) Screen (Not Detect) Ethyl Alcohol mg/dL COVID-19 (JURGEN) (Negative) COVID-19 Clin Com 10/10/21 Range/Units 18:49 WBC (4.8-10.8) X10*3/uL RBC (4.20-5.50) X10*6/uL Hgb (12.0-16.0) g/dl Hct (37.0-47.0) % MCV (80.0-98.0) fL MCH (27.0-33.0) pg MCHC (31.0-35.0) g/dl RDW (11.0-16.0) % Plt Count (160-400) X10*3/uL MPV (9.4-12.3) fL Immature Gran % (Auto) (0.0-0.4) % Neut % (Auto) (45-73) % Lymph % (Auto) (20-40) % [place] % (Auto) (2-11) % Eos % (Auto) (0-4) % Baso % (Auto) (0-2) % Lymph # (Auto) (1.2-4.9) X10*3/uL [place] # (Auto) (0.1-1.2) X10*3/uL Eos # (Auto) (0.0-0.4) X10*3/uL Baso # (Auto) (0.0-0.2) X10*3/uL Abs Immat Gran (auto) (0.00-0.03) X10*3/uL Absolute Neuts (auto) (2.0-8.3) x10*3/uL Absolute Nucleated RBC (0.0-0.012) X10*3/uL Nucleated RBC % (auto) (0.0-0.2) /100WBC PT (10.0-13.1) SEC INR (0.9-1.1) APTT (26.0-36.4) SEC VBG pH (7.32-7.43) VBG pCO2 mmHg VBG pO2 mmHg VBG HCO3 (22-26) mmol/L VBG O2 Saturation % VBG Base Excess mmol/L Sodium (135-145) mmol/L Potassium (3.3-5.1) mmol/L Chloride (96-108) mmol/L Carbon Dioxide (22-29) mmol/L Anion Gap (12-20) BUN (9-16) mg/dL Creatinine (0.5-1.4) mg/dL Estim Creat Clear Calc Estimated GFR Random Glucose (60-115) mg/dL Lactic Acid (0.5-2.0) mmol/L Calcium (8.4-10.2) mg/dL Magnesium (1.6-2.6) mg/dL Total Bilirubin (0.0-1.0) mg/dL AST (5-31) U/L ALT (0-31) U/L Alkaline Phosphatase (39-117) U/L Troponin I High Sens (<3.5-17.0) ng/L Total Protein (6.5-8.0) g/dL Albumin (3.5-5.0) g/dL Urine Color Urine Appearance Urine pH (5.0-8.0) Ur Specific [place] (1.005-1.025) Urine Protein (Neg-Trace) mg/dL Urine Glucose (UA) (Negative) mg/dL Urine Ketones (Negative) mg/dL Urine Blood (Negative) Urine Nitrite (Negative) Ur Leukocyte Esterase (Negative) Urine Opiates Screen Not Detected (Not Detect) Urine Fentanyl Screen Not Detected (Not Detect) Ur Barbiturates Screen Not Detected (Not Detect) Ur Phencyclidine Scrn Not Detected (Not Detect) Ur Amphetamines Screen Not Detected (Not Detect) U Benzodiazepines Scrn Not Detected (Not Detect) Urine Cocaine Screen Not Detected (Not Detect) U Marijuana (THC) Screen Not Detected (Not Detect) Ethyl Alcohol mg/dL COVID-19 (JURGEN) (Negative) COVID-19 Clin Com Imaging Data CT scan - head: Attestation: I personally reviewed and interpreted this imaging study as follows: My impression: No acute process. Radiologist's impression: EXAMINATION: CT HEAD WITHOUT IV CONTRAST INDICATION: Breakthrough seizure. COMPARISON: Head CT 02/11/2021 TECHNIQUE: Multidetector CT acquisitions of the head was obtained without IV contrast. This CT examination was performed using dose optimization techniques as appropriate, variously including the following: *Automated exposure control *Adjustment of mA and/or kV according to patient size (this includes techniques or standardized protocols for targeted exams where dose is matched to indication/reason for exam; i.e. extremities or head) *Use of iterative reconstruction technique FINDINGS: Right frontal craniotomy changes are again noted. A surgical clip within the anterior right frontal region is again noted. Chronic encephalomalacia and gliosis involving the inferior frontal lobes with associated exvacuodilatation of the frontal horns again noted and is likely similar to the prior examination accounting for technical differences. It would be very difficult to exclude any superimposed acute pathology in this area is due to the degree of artifact and chronic changes. Limited assessment for acute blood products due to the degree of artifact with none definitively seen. There is no intracranial hydrocephalus, extra-axial surface collection, midline shift, or other herniation pattern. No definite acute infarcts. The basilar cisterns are preserved. No significant soft tissue abnormality. Diffuse thickening of the bony calvarium again noted. Imaged paranasal sinuses and mastoid air cells are clear. CT/CT head/brain wo con IMPRESSION: Study is limited by artifact from patient's significantly obliqued positioning. Chronic encephalomalacia and gliosis involving the inferior frontal lobes with associated exvacuodilatation of the frontal horns again noted and is likely similar to the prior examination accounting for technical differences. It would be very difficult to exclude any superimposed acute pathology in this area is due to the degree of artifact and chronic changes. Dictated By: Tommy Goldstein MD Signed By: Electronically signed by Tommy Goldstein MD 10/10/21 [id number] ECG Data Attestation: I personally reviewed and interpreted this ECG as follows: Prior ECG tracings: available for review Interpretation: Vent. Rate: 092 BPM ? ? Atrial Rate: 092 BPM P-R Int: 170 ms? QRS Dur: 082 ms QT Int: 336 ms ? ? ? P-R-T Axes: 048 024 046 degrees QTc Int: 415 ms ? Sinus rhythm with Premature supraventricular complexes Otherwise normal ECG When compared with ECG of 11-FEB-2021 04:20, Premature supraventricular complexes are now Present [id number]/ [id number] Discharge Plan Discharge Clinical Impression: Seizure Patient Disposition: Home, Self-Care Instructions: Recurrent Seizures in Adults (ED) Additional Instructions: Follow up with your primary care provider. Return to the emergency department immediately if your symptoms worsen or if you develop any dizziness, shortness of breath, difficulty breathing, chest pain, blurry vision, loss of vision, nausea, vomiting, abdominal pain, fever, chills, back pain, or any other complaints. Prescriptions: No Action Xarelto 20 mg tablet 20 mg PO BEDTIME Qty: 90 3RF aspirin 81 mg tablet,delayed release (DR/EC) 81 mg PO DAILY Qty: 90 3RF atorvastatin 40 mg tablet 40 mg PO DAILY Qty: 90 3RF hydrochlorothiazide 25 mg tablet 25 mg PO DAILY Qty: 90 3RF levetiracetam 100 mg/mL solution 1,000 mg PO TID Qty: 2700 3RF amlodipine 5 mg tablet 5 mg PO DAILY Qty: 90 3RF (DME) miscellaneous medical supply Misc See Rx Instructions .ROUTE .MEDSUPPLY Qty: 240 6RF Rx Instructions: Disposable Diaper-PullUps. size large 8x daily As directed, 30 day supply Interventions: ED Discharge Assessment Last Done: 10/10/21 20:35 Print Language: Danish
--- NOTE | 2021-10-10 13:59 | ECG_ITS ---
Test Reason : seizure Blood Pressure : / mmHG Vent. Rate : 092 BPM Atrial Rate : 092 BPM P-R Int : 170 ms QRS Dur : 082 ms QT Int : 336 ms P-R-T Axes : 048 024 046 degrees QTc Int : 415 ms Sinus rhythm with Premature supraventricular complexes Otherwise normal ECG When compared with ECG of 11-FEB-2021 04:20, Premature supraventricular complexes are now Present Heart rate has decreased Referred By: Didi Padilla Electronically Signed By:ASLHEY ZHU
[2021-10-10 14:20] VITALS: BP 130/70; BP 187/89; PULSE 104; PULSE 89; RESP 14; TEMP 36.6; O2SAT 95; O2SAT 99; BMI 26.9
--- NOTE | 2021-10-10 15:02 | PC.NURSE ---
pt is alert and oriented x 1. Caregiver at bedside stating pt is at baseline. IV in place, unable to obtain lab work. Tech to reattempt. Seizure pads placed, waiting for ct result.
[2021-10-10 15:20] VITALS: TEMP 38.2
[2021-10-10] MEDS: Acetaminophen Oral Liquid 650 MG/20.3 ML SOLUTION PO (15:43)
[2021-10-10 15:46] LABS: INTERNATIONAL NORM RATIO 2.1 (0.9-1.1); Prothrombin Time 24.5 SEC (10.0-13.1)
[2021-10-10 15:49] LABS: Partial Thromboplastin Time 34.4 SEC (26.0-36.4)
[2021-10-10 15:57] LABS: COVID-19 Test Negative (Negative); IDNOW Serial# 16C4AD1C
[2021-10-10] MEDS: levETIRAcetam Oral Soln 500 MG/5 ML 1000 MG PO (16:16)
[2021-10-10 16:21] LABS: Venous Blood Gas Refer to POC result
[2021-10-10 16:21] LABS: MANUAL DIFF FLAG NO
[2021-10-10 16:23] LABS: VBG Base Excess 7.5 mmol/L; VBG HCO3 31 mmol/L (22-26); VBG pCO2 40 mmHg; VBG pH 7.49 (7.32-7.43); VBG pO2 55 mmHg
[2021-10-10 16:24] LABS: Basophils Absolute Auto 0.1 X10*3/uL (0.0-0.2); Basophils Percent Auto 0.5 % (0-2); Eosinophils Absolute Auto 0.1 X10*3/uL (0.0-0.4); Eosinophils Percent Auto 0.4 % (0-4); Hematocrit 42.4 % (37.0-47.0); Hemoglobin 13.1 g/dl (12.0-16.0); Imm Gran Abs Auto 0.03 X10*3/uL (0.00-0.03); Imm Gran Pct Auto 0.2 % (0.0-0.4); Lymphocytes Absolute Auto 1.5 X10*3/uL (1.2-4.9); Lymphocytes Percent Auto 11.9 % (20-40); Mean Corpuscular HGB Conc 30.9 g/dl (31.0-35.0); Mean Corpuscular Hemoglobin 26.8 pg (27.0-33.0); Mean Corpuscular Volume 86.9 fL (80.0-98.0); Monocytes Absolute Auto 0.6 X10*3/uL (0.1-1.2); Monocytes Percent Auto 4.6 % (2-11); Neutrophils Percent Auto 82.4 % (45-73); Platelet Count 284 X10*3/uL (160-400); Red Blood Count 4.88 X10*6/uL (4.20-5.50); White Blood Count 12.2 X10*3/uL (4.8-10.8)
[2021-10-10 16:37] LABS: Lactic Acid 1.2 mmol/L (0.5-2.0)
[2021-10-10 16:39] LABS: Ethanol < 10 mg/dL
[2021-10-10 16:42] LABS: Alanine Aminotransferase 18 U/L (0-31); Albumin Level 3.7 g/dL (3.5-5.0); Alkaline Phosphatase 89 U/L (39-117); Anion Gap 14 (12-20); Aspartate Amino Transferase 16 U/L (5-31); Bilirubin Total 0.4 mg/dL (0.0-1.0); Blood Urea Nitrogen 17 mg/dL (9-16); Carbon Dioxide 30 mmol/L (22-29); Chloride 101 mmol/L (96-108); Creatinine Clr Calc Pharmacy 74.6; Estimated Glomerular Filt Rate > 60; Glucose Random 145 mg/dL (60-115); Potassium 3.9 mmol/L (3.3-5.1); Sodium 141 mmol/L (135-145); Total Protein 6.9 g/dL (6.5-8.0)
[2021-10-10 18:44] VITALS: BP 152/75; PULSE 91; RESP 29; TEMP 37.1; O2SAT 95
[2021-10-10 18:58] LABS: Appearance Urine Clear; Color Urine Yellow; Glucose Urine UA Negative (Negative); Leukocyte Esterase Urine Negative (Negative); Nitrite Urine Negative (Negative); Specific Gravity - Urine 1.025 (1.005-1.025); Urine Blood Negative (Negative); Urine Ketones Negative (Negative); Urine Protein Negative (Neg-Trace)
[2021-10-10 19:11] LABS: Amphetamine Screen Urine Not Detected (Not Detect); Barbiturates, Urine Not Detected (Not Detect); Benzodiazepines Screen Urine Not Detected (Not Detect); Cannabinoid Screen Urine Not Detected (Not Detect); Cocaine Screen Urine Not Detected (Not Detect); Fentanyl, urine Not Detected (Not Detect); Opiate Screen Urine Not Detected (Not Detect); Phencyclidine Screen Urine Not Detected (Not Detect)
[2021-10-10 20:15] VITALS: BP 135/71; PULSE 84; RESP 16; TEMP 37.3; O2SAT 97
[2021-10-13 17:11] LABS: Levetiracetam Keppra 42.5 mcg/mL (6.0-46.0)
== END 2021-10-10 20:25 | disposition home or self-care (01) ==
PROVIDERS: Physician Assistant Medical; Emergency Provider Emergency Medicine
DX: R56.9 Unspecified convulsions (principal); Z20.822 Contact with and (suspected) exposure to COVID-19; Z79.899 Other long term (current) drug therapy
CPT/HCPCS: 36415; 70450; 80053; 80177; 80307; 81003; 82077; 82803; 83605; 83735; 84484; 85025; 85610; 85730; 87040; 87635; 93005; 99284

== ENCOUNTER 2021-12-20 16:23 | Inpatient (IN) | payer MEDICARE, MEDICAID, SELFPAY ==
--- NOTE | ~2021-12-20 | XR_ITS ---
EXAMINATION: XR CHEST CLINICAL INFORMATION: Follow-up pneumonia COMPARISON: Prior chest 12/21/2021 TECHNIQUE: Frontal view of the chest was obtained. FINDINGS: Endotracheal tube: The tip of the endotracheal tube projects over the right main stem bronchus 1.2 cm distal to the ronald. Period Enteric tube noted distal to the GE junction overlying the upper abdomen with the distal tip outside the [id number] the exam. A central venous catheter projects over the SVC right atrial junction. No pneumothorax. Persistent bibasilar opacities Cardiac mediastinal silhouette unremarkable. XR/XR chest 1V IMPRESSION: 1. Endotracheal tube tip projects over the right mainstem bronchus 1.2 cm distal to the ronald. Recommend pulling back 5cm 2. Persistent bibasilar opacities likely reflecting atelectasis or consolidation. This critical result was discussed with Dr. Hendrix at approximately 10:30 AM on 12/25/2021 and it was ascertained that the content and urgency of the report was understood at the time of direct communication.
--- NOTE | ~2021-12-20 | CT_ITS ---
EXAMINATION: CTA CHEST PE STUDY, CT ABDOMEN AND PELVIS CLINICAL INFORMATION: fall, ams, trauma, abd trauma COMPARISON: Prior studies including the most recent 07/06/2020 and the 08/14/2018 CT scan TECHNIQUE: Prior to contrast administration, noncontrast localization images were obtained. After the administration of 75 mL of Omnipaque nonionic IV contrast, contiguous thin slice helical images were obtained through the thorax. Following this the examination was continued through the abdomen and then pelvis. Reformatted MIP images in the coronal and sagittal planes as well as thin slice reformatted images of coronal and sagittal planes were obtained at the acquisition workstation. This CT examination was performed using dose optimization techniques as appropriate, variously including the following: *Automated exposure control *Adjustment of mA and/or kV according to patient size (this includes techniques or standardized protocols for targeted exams where dose is matched to indication/reason for exam; i.e. extremities or head) *Use of iterative reconstruction technique DLP: 1518 mGy-cm. FINDINGS: CHEST: The bolus timing on this study was acceptable for visualization of the pulmonary arterial tree. There are no intraluminal pulmonary arterial filling defects present to suggest pulmonary embolism. Bibasilar dependent atelectasis. No abnormal pulmonary nodules or masses are appreciated. No significant hilar or mediastinal adenopathy. There is no evidence of pleural effusion or pneumothorax. The heart is normal in size. No evidence of ventricular septal bowing or right heart strain. The mediastinum and great vessels are normal. There is no pericardial effusion or pericardial thickening. ABDOMEN/PELVIS: Liver, Gallbladder and Biliary Tree: The liver is normal in size, shape, and attenuation. No focal hepatic lesion or biliary ductal dilatation is present. The gallbladder is contracted but otherwise unremarkable with no evidence of radiopaque gallstones, gallbladder wall thickening, or obvious pericholecystic inflammatory changes. Pancreas: Unremarkable. Spleen: Unremarkable. Adrenal Glands: Slight stable nodular fullness to the left adrenal gland unchanged from the 07/06/2020 CT scan in retrospect. Contralateral right adrenal gland unremarkable Kidneys and Ureters: Small low-attenuation cortical cyst in the posterior midpole of the left kidney. Otherwise the kidneys are normal in size, shape, and attenuation. No hydronephrosis, hydroureter, or calculi seen. No perinephric stranding. Bladder: Unremarkable. Gastrointestinal Tract: Distal colon is decompressed. There are a few scattered colonic diverticula but no focal colonic wall thickening or pericolonic inflammatory changes to suggest diverticulitis. Visualized small bowel is unremarkable. Abdominal Wall: Small fat-containing umbilical hernia again noted. Lymphovascular Structures: No lymphadenopathy. The aorta is unremarkable. Pelvic Viscera: Heterogeneity to the uterus likely representing multiple uterine fibroids. There is fullness to the endometrial cavity measuring up to 1.5 cm in maximal thickness. This is suggestion of a filling defect within the endometrial cavity representing a submucosal fibroid or image or polyp. This is not able to be defined further on this study. Correlation with dedicated pelvic ultrasound may be helpful. Appearance is similar to 02/15/2016 pelvic ultrasound. Osseous Structures: Degenerative changes in the spine and hips. CT/CT angio chest PE protocol IMPRESSION: No evidence for pulmonary emboli. Bilateral atelectasis. No acute intra-abdominal process seen. Multi fibroid uterus with fullness to the endometrial cavity possibly due to submucosal fibroid with appearance similar to the 2016 pelvic ultrasound. If there is clinical concern, repeat pelvic ultrasound could be attempted. VTE: Negative
--- NOTE | ~2021-12-20 | CT_ITS ---
EXAMINATION: CT HEAD WITHOUT CONTRAST CLINICAL INFORMATION: Syncope. Question head strike acute mental status change. COMPARISON: Head CT 10/10/2021 TECHNIQUE: Imaging was performed from the skull base to vertex without intravenous administration of contrast. This CT examination was performed using dose optimization techniques as appropriate, variously including the following: *Automated exposure control *Adjustment of mA and/or kV according to patient size (this includes techniques or standardized protocols for targeted exams where dose is matched to indication/reason for exam; i.e. extremities or head) *Use of iterative reconstruction technique Total exam dose length product: 941 mGy-cm FINDINGS: No intra or extra-axial fluid collection, hemorrhage, or mass. No ventriculomegaly. No midline shift or herniation. Basal cisterns are patent. [place]-white matter differentiation is maintained. End seen is encephalomalacia of the anterior aspect of the frontal lobes bilaterally with cupping gliosis and ex vacuo dilation of the frontal horns of lateral ventricles. Encephalomalacia with prior insular infarct involves the basal ganglia as well, unchanged. Small focus of encephalomalacia in the right parieto-occipital lobe. There is mild patchy hypoattenuation in the supratentorial white matter. No calvarial fracture. Right frontal craniotomy. Diffuse thickening of the calvarium, unchanged. Metallic clip in the anterior frontal lobe noted. The mastoid air cells and visualized portions of the paranasal sinuses are well aerated. CT/CT head for stroke IMPRESSION: 1. No acute intracranial pathology. 2. Unchanged encephalomalacia in the bilateral frontal lobes, right basal ganglia, and right parieto-occipital lobe. This critical result was discussed with BEVERLY Peguero at 4:50 PM on 12/20/2021 and it was ascertained that the content and urgency of the report was understood at the time of direct communication.
--- NOTE | ~2021-12-20 | US_ITS ---
EXAMINATION: US VENOUS ULTRASOUND WITH DOPPLER LOWER EXTREMITY, BILATERAL CLINICAL INFORMATION: History of DVT in 2019 and the left lower extremity. Stopped anticoagulation. COMPARISON: Duplex venous ultrasound 11/15/2018 TECHNIQUE: Ultrasound of the deep veins is performed from the hip to the calf with compression sonography and color and pulse Doppler assessment. Spectral analysis with color-flow imaging is performed. FINDINGS: RIGHT: There is normal venous compression and respiratory variation and augmented flow. The visualized common femoral vein, superficial femoral vein, profunda femoral vein, popliteal vein, and the trifurcation region shows no evidence of deep venous thrombosis. There is no significant popliteal fossa cyst. LEFT: There is normal venous compression and respiratory variation and augmented flow. The visualized common femoral vein, superficial femoral vein, profunda femoral vein shows no evidence of deep venous thrombosis. There does appear to be a very small amount of echogenic noncompressible nonocclusive thrombus in the popliteal vein. There is no significant popliteal fossa cyst. If the patient's symptoms persist, followup ultrasound in 5 days 7 days might be of value to exclude proximal propagation from a non-visualized calf vein. US/US venous duplex LE BI IMPRESSION: 1. Very small amount of echogenic, noncompressible nonocclusive thrombus in the left popliteal vein. This may represent chronic thrombus related to prior DVT. 2. No evidence of right lower extremity DVT.
--- NOTE | ~2021-12-20 | XR_ITS ---
EXAMINATION: XR CHEST CLINICAL INFORMATION: Post orogastric tube and central line. Respiratory failure. COMPARISON: Previous chest CTA from earlier the same day TECHNIQUE: Frontal view of the chest was obtained. FINDINGS: There is a new orogastric tube with tip projecting over the distal stomach. There is a new endotracheal tube. Persistent image demonstrates endotracheal tube projecting over the right mainstem bronchus. Second image demonstrate endotracheal tube tip 2.7 cm above the ronald. Third image demonstrates a wire likely in the left jugular vein with tip projecting cephalad over the right jugular vein. Fourth image demonstrates wire projecting over the IVC, tip not seen. Fifth image demonstrates a left jugular line with tip projecting over the cavoatrial junction. Endotracheal tube tip on the final image is 5 cm above the ronald. Orogastric tube projects over the distal stomach. The cardiac and mediastinal contours are normal. There is increasing atelectasis or consolidation at the lung bases and small bilateral pleural effusions, left greater than right. There is no pneumothorax. XR/XR chest 1V IMPRESSION: Final image demonstrates satisfactory position of new endotracheal tube, orogastric tube and left jugular line. Increasing atelectasis/consolidation and pleural effusions at the lung bases, left greater than right.
--- NOTE | ~2021-12-20 | CT_ITS ---
EXAMINATION: CT CERVICAL SPINE WITHOUT CONTRAST CLINICAL INFORMATION: Fall COMPARISON: CT cervical spine 07/06/2020 TECHNIQUE: Contiguous helical images of the cervical spine were obtained without IV contrast. Multiplanar reconstructions were performed. This CT examination was performed using dose optimization techniques as appropriate, variously including the following: *Automated exposure control *Adjustment of mA and/or kV according to patient size (this includes techniques or standardized protocols for targeted exams where dose is matched to indication/reason for exam; i.e. extremities or head) *Use of iterative reconstruction technique DLP: 589 mGy-cm FINDINGS: Alignment:Levoconvex curvature of the cervical spine. Reversal of normal cervical lordosis. No subluxation. Vertebra:No acute fracture. No prevertebral soft tissue swelling. Degenerative disc disease:Multilevel degenerative disc disease with mild disc height loss, endplate sclerosis and bulky bridging right-sided osteophytes at C4-T1. Multilevel facet arthrosis and right facet joint ankylosis at C2-C3 and C3-C4. Left-sided facet joint ankylosis at C2-C3. Other findings:No cervical lymphadenopathy. Visualized major salivary glands and thyroid gland are unremarkable. Bifrontal encephalomalacia and vascular clip noted in the visualized brain. Visualized lung apices are clear. CT/CT cervical spine wo IV con IMPRESSION: No subluxation or acute cervical spine fracture.
--- NOTE | 2021-12-20 16:29 | ECG_ITS ---
Test Reason : SEIZURE Blood Pressure : / mmHG Vent. Rate : 108 BPM Atrial Rate : 108 BPM P-R Int : 200 ms QRS Dur : 084 ms QT Int : 324 ms P-R-T Axes : 061 008 065 degrees QTc Int : 434 ms Sinus tachycardia Nonspecific ST and T wave abnormality Abnormal ECG When compared with ECG of 10-OCT-2021 16:34, Premature supraventricular complexes are no longer Present Nonspecific T wave abnormality, worse in Lateral leads Referred By: Tahir Turcios Electronically Signed By:VERNON RODRIGUEZ MD
--- NOTE | 2021-12-20 16:34 | ED.AMS ---
HPI - Altered Mental Status General Chief Complaint: Altered Mental Status Stated Complaint: fall Time Seen by Provider: 12/20/21 16:34 Source: EMS Mode of arrival: EMS Limitations: altered mental status History of Present Illness HPI narrative: 66 year old female history brain cancer s/p chemo and radiation, DVT, hypertension, and recurrent seizures, CVA presents from home status post near syncopal episode. According to EMS patient is coming in with altered mental status, weakness, near-syncope. Patient is usually ambulatory however today unable to ambulate, she almost had a fall however was lower down by her . Patient unable to answer any questions due to mental status. When EMS arrived patient was saturating 60% on room air with labored breathing. Patient is not oxygen dependent home. According to family this is very far off from her baseline, patient is usually ambulatory w/ assist and able to participate in basic conversations. Family tells me she has been complaining of left-sided calf pain for the past few days as well as upper respiratory symptoms such as cough and congestion, they also mention that patient was recently stopped on her anticoagulant. Patient awake to verbal and painful stimuli however unable to answer questions. Related Data Home Medications Medication Instructions Recorded Confirmed baclofen 10 mg tablet 1 tab PO QPM 12/20/21 12/20/21 Previous Rx's Medication Instructions Recorded aspirin 81 mg tablet,delayed 81 mg PO DAILY #90 tabs 04/05/21 release atorvastatin 40 mg tablet 40 mg PO DAILY #90 tabs 04/05/21 hydrochlorothiazide 25 mg tablet 25 mg PO DAILY #90 tabs 04/05/21 levetiracetam 100 mg/mL oral 1,000 mg (10 mL) PO TID #2,700 mL 05/05/21 solution amlodipine 5 mg tablet 5 mg PO DAILY #90 tabs 06/22/21 miscellaneous medical supply #240 ea 06/28/21 Allergies Allergy/AdvReac Type Severity Reaction Status Date / Time apple [Apple] Allergy Severe THROAT Verified 08/30/21 13:20 SWELLING pollen extracts [POLLEN] Allergy Intermediate SNEEZING Verified 08/30/21 13:20 COUGHING ALOT kiwi AdvReac Intermediate VOMITING Verified 08/30/21 13:20 [Kiwi (Actinidia Chinensis)] avocado [Avocado] AdvReac Mild VOMITING Verified 08/30/21 13:20 Review of Systems Review of Systems: Yes Unobtainable due to mental status [facility] Past Medical History Attestation statement: The following information was validated with the patient. Source: old records reviewed and nursing notes reviewed Medical History Brain cancer DVT (deep venous thrombosis) Essential hypertension HTN (hypertension) Seizure Stroke Torticollis, acquired Unspecified urinary incontinence Surgical History H/O craniotomy Family History Family History Mother Diabetes Father Heart disease Family/Other Breast cancer Brain cancer Diabetes Social History Social History Household Members: Spouse Housing: Unknown / Unable to assess Do you presently have visiting nurse or other home services: Yes (configuration management advisor in am & pm for ADL's) Alcohol intake: never Patient Tobacco Use Status: Never used Tobacco Advance Directives: Yes Advance Directives on File: Yes Advance Directives Date on File: 02/12/20 service: No Current occupational status: unemployed and disabled Current occupation: right handed Physical Exam ED Vital Signs: Vital Signs - 24 hr 12/20/21 17:07 12/20/21 17:12 12/20/21 17:19 Temperature 98.5 F Pulse Rate 104 H 106 H Respiratory Rate 18 15 Blood Pressure Pulse Oximetry 99 Oxygen Delivery Method Non-Rebreather Mask Oxygen Flow Rate 12/20/21 17:39 12/20/21 18:20 Temperature Pulse Rate 104 H Respiratory Rate 24 H Blood Pressure 133/68 140/63 H Pulse Oximetry Oxygen Delivery Method Oxymask Oxygen Flow Rate 4 BMI result Body Mass Index 32.3 VSS Patient 98% on non rebreather 15 L Appearance: Patient awake, responding? No acute to verbal an stimuli. Mild respiratory distress. Head: Normocephalic, atraumatic, no step-offs or deformities Eyes: Pupils equal, round and reactive to light.? Neck: Normal inspection.? Neck supple.?Patient leaning her neck to right CVS: Normal heart rate and rhythm.? Pulses normal.? Respiratory: + mild respiratory distress.? Inspiratory and expiratory wheezing noted bilaterally. With crackles to the right lower quadrant. Abdomen: Soft and nontender.? Skin: Skin warm and dry.? Normal skin color.? Normal skin turgor.? Extremities:Global weakness Neuro: Patient responding only to verbal and painful stimuli . Appears to be leaning to her right side. Unable to follow commands or answer questions. Unable to participate and neurological exam. NIHSS- unable to obtain Course Reevaluation(s) Reevaluation #1: Patient is noted to have a slight leukocytosis likely reactive if patient had a seizure, coags appear to be around patient's baseline. CT of the head with no acute intracranial pathology there is unchanged encephalomalacia in bilateral frontal lobes, basal ganglia and right parieto-occipital lobe. CT of the cervical spine with no subluxations or acute cervical spine fractures. CTA with no evidence for pulmonary emboli, no acute intra-abdominal process seen.Lactic negative. Patient having upper extremity contractions lasting a few seconds and appears to be seizing versed given. Chemistry, CPK, trop, UA pending. Time: 17:53 Reevaluation #2: Discussed this case with hospitalist who would like a lumbar puncture performed prior to admission however based off patient history and PE my attending Dr. Adan doesnt feel as though it is appropriate. Time: 20:23 Reevaluation #3: Hospitalist spoke to who tells her that patient's eyes rolled back when she had this near syncopal episode, which could resemble a seizure. At this time patient's hypoxia likely secondary to seizure. I do not suspect that this is meningitis or encephalitis. At this time patient will be admitted to the hospitalist team for further intervention and treatment. Time: 23:21 MDM - Altered Mental Status MDM Narrative Medical decision making narrative: 1628 66 yo F presents via ambulance for ams, near syncope, uri sx, left calp pain and hypoxia X1 day. Noted to be 60% on RA w/ labored breathing, not oxygen dependent, stopped anticoags recently. AMS and cant answer questions. Far from patients baseline per daughter PE with inspiratory and expiratory wheezing, crackles noted to the right lower lobe, regular rate and rhythm, abdomen soft nontender nondistended. Patient responding to verbal and painful stimuli however unable to follow commands or participate in neurological exam. Unable to obtain NIH stroke scale due to patient's mental status. Patient leaning to her right and appears to be contracted. Will rule out [place], PE as patient was recently stopped on anticoagulants. Will also rule out pneumonia. Likely postictal state and seizure Plan at this time is urine, basic labs, EKG, troponin, CTA chest , stroke protocol. And pillai scan. Medical Records Attestation: I reviewed the patient's medical records. Lab Data Attestation: I reviewed the patient's lab results. Result diagrams: 12/20/21 17:27 12/20/21 18:26 Labs: Lab Results 12/20/21 12/20/21 12/20/21 Range/Units 16:36 17:26 17:27 WBC 13.8 H (4.8-10.8) X10*3/uL RBC 5.02 (4.20-5.50) X10*6/uL Hgb 13.3 (12.0-16.0) g/dl Hct 44.1 (37.0-47.0) % MCV 87.8 (80.0-98.0) fL MCH 26.5 L (27.0-33.0) pg MCHC 30.2 L (31.0-35.0) g/dl RDW 13.5 (11.0-16.0) % Plt Count 261 (160-400) X10*3/uL MPV 10.3 (9.4-12.3) fL Immature Gran % (Auto) 0.4 (0.0-0.4) % Neut % (Auto) 89.0 H (45-73) % Lymph % (Auto) 4.3 L (20-40) % Benzie % (Auto) 6.0 (2-11) % Eos % (Auto) 0.1 (0-4) % Baso % (Auto) 0.2 (0-2) % Lymph # (Auto) 0.6 L (1.2-4.9) X10*3/uL Benzie # (Auto) 0.8 (0.1-1.2) X10*3/uL Eos # (Auto) 0.0 (0.0-0.4) X10*3/uL Baso # (Auto) 0.0 (0.0-0.2) X10*3/uL Abs Immat Gran (auto) 0.05 H (0.00-0.03) X10*3/uL Absolute Neuts (auto) 12.3 H (2.0-8.3) x10*3/uL Absolute Nucleated RBC 0.000 (0.0-0.012) X10*3/uL Nucleated RBC % (auto) 0.0 (0.0-0.2) /100WBC PT (10.0-13.1) SEC INR (0.9-1.1) Sodium (135-145) mmol/L Potassium (3.3-5.1) mmol/L Chloride (96-108) mmol/L Carbon Dioxide (22-29) mmol/L Anion Gap (12-20) BUN (9-16) mg/dL Creatinine (0.5-1.4) mg/dL Estim Creat Clear Calc Estimated GFR POC Glucose 162 H (60-115) mg/dL Random Glucose (60-115) mg/dL Lactic Acid (0.5-2.0) mmol/L Calcium (8.4-10.2) mg/dL Magnesium (1.6-2.6) mg/dL Total Bilirubin (0.0-1.0) mg/dL AST (5-31) U/L ALT (0-31) U/L Alkaline Phosphatase (39-117) U/L Total Creatine Kinase Troponin I High Sens (<3.5-17.0) ng/L B-Natriuretic Peptide (<100) pg/mL Total Protein (6.5-8.0) g/dL Albumin (3.5-5.0) g/dL Urine Color Urine Appearance Urine pH (5.0-9.0) Ur Specific [place] (1.005-1.025) Urine Protein (Neg-Trace) mg/dL Urine Glucose (UA) (Negative) mg/dL Urine Ketones (Negative) mg/dL Urine Blood (Negative) Urine Nitrite (Negative) Ur Leukocyte Esterase (Negative) Urine RBC (0-2) /HPF Urine WBC (0-5) /HPF Ur Squamous Epith Cells (0-2) /HPF Ur Transition Epith Cell Ur Renal Epithelial Cell Urine Bacteria (None Seen) Hyaline Casts (0-2) /LPF COVID-19 (JURGEN) Negative (Negative) COVID-19 Clin Com See Note Influenza Type A (PCR) (Negative) Influenza Type B (PCR) (Negative) RSV RNA Qual (PCR) (Negative) SARS-CoV-2 RNA (RT-PCR) (Negative) 12/20/21 12/20/21 12/20/21 Range/Units 17:27 17:27 17:27 WBC (4.8-10.8) X10*3/uL RBC (4.20-5.50) X10*6/uL Hgb (12.0-16.0) g/dl Hct (37.0-47.0) % MCV (80.0-98.0) fL MCH (27.0-33.0) pg MCHC (31.0-35.0) g/dl RDW (11.0-16.0) % Plt Count (160-400) X10*3/uL MPV (9.4-12.3) fL Immature Gran % (Auto) (0.0-0.4) % Neut % (Auto) (45-73) % Lymph % (Auto) (20-40) % Benzie % (Auto) (2-11) % Eos % (Auto) (0-4) % Baso % (Auto) (0-2) % Lymph # (Auto) (1.2-4.9) X10*3/uL Benzie # (Auto) (0.1-1.2) X10*3/uL Eos # (Auto) (0.0-0.4) X10*3/uL Baso # (Auto) (0.0-0.2) X10*3/uL Abs Immat Gran (auto) (0.00-0.03) X10*3/uL Absolute Neuts (auto) (2.0-8.3) x10*3/uL Absolute Nucleated RBC (0.0-0.012) X10*3/uL Nucleated RBC % (auto) (0.0-0.2) /100WBC PT 22.6 H (10.0-13.1) SEC INR 1.9 H (0.9-1.1) Sodium (135-145) mmol/L Potassium (3.3-5.1) mmol/L Chloride (96-108) mmol/L Carbon Dioxide (22-29) mmol/L Anion Gap (12-20) BUN (9-16) mg/dL Creatinine (0.5-1.4) mg/dL Estim Creat Clear Calc Estimated GFR POC Glucose (60-115) mg/dL Random Glucose (60-115) mg/dL Lactic Acid (0.5-2.0) mmol/L Calcium (8.4-10.2) mg/dL Magnesium (1.6-2.6) mg/dL Total Bilirubin (0.0-1.0) mg/dL AST (5-31) U/L ALT (0-31) U/L Alkaline Phosphatase (39-117) U/L Total Creatine Kinase Cancelled Troponin I High Sens 12.5 (<3.5-17.0) ng/L B-Natriuretic Peptide 175 H (<100) pg/mL Total Protein (6.5-8.0) g/dL Albumin (3.5-5.0) g/dL Urine Color Urine Appearance Urine pH (5.0-9.0) Ur Specific [place] (1.005-1.025) Urine Protein (Neg-Trace) mg/dL Urine Glucose (UA) (Negative) mg/dL Urine Ketones (Negative) mg/dL Urine Blood (Negative) Urine Nitrite (Negative) Ur Leukocyte Esterase (Negative) Urine RBC (0-2) /HPF Urine WBC (0-5) /HPF Ur Squamous Epith Cells (0-2) /HPF Ur Transition Epith Cell Ur Renal Epithelial Cell Urine Bacteria (None Seen) Hyaline Casts (0-2) /LPF COVID-19 (JURGEN) (Negative) COVID-19 Clin Com Influenza Type A (PCR) (Negative) Influenza Type B (PCR) (Negative) RSV RNA Qual (PCR) (Negative) SARS-CoV-2 RNA (RT-PCR) (Negative) 12/20/21 12/20/21 12/20/21 Range/Units 17:27 18:26 18:48 WBC (4.8-10.8) X10*3/uL RBC (4.20-5.50) X10*6/uL Hgb (12.0-16.0) g/dl Hct (37.0-47.0) % MCV (80.0-98.0) fL MCH (27.0-33.0) pg MCHC (31.0-35.0) g/dl RDW (11.0-16.0) % Plt Count (160-400) X10*3/uL MPV (9.4-12.3) fL Immature Gran % (Auto) (0.0-0.4) % Neut % (Auto) (45-73) % Lymph % (Auto) (20-40) % Benzie % (Auto) (2-11) % Eos % (Auto) (0-4) % Baso % (Auto) (0-2) % Lymph # (Auto) (1.2-4.9) X10*3/uL Benzie # (Auto) (0.1-1.2) X10*3/uL Eos # (Auto) (0.0-0.4) X10*3/uL Baso # (Auto) (0.0-0.2) X10*3/uL Abs Immat Gran (auto) (0.00-0.03) X10*3/uL Absolute Neuts (auto) (2.0-8.3) x10*3/uL Absolute Nucleated RBC (0.0-0.012) X10*3/uL Nucleated RBC % (auto) (0.0-0.2) /100WBC PT (10.0-13.1) SEC INR (0.9-1.1) Sodium 141 (135-145) mmol/L Potassium 4.0 (3.3-5.1) mmol/L Chloride 96 (96-108) mmol/L Carbon Dioxide 34 H (22-29) mmol/L Anion Gap 15 (12-20) BUN 15 (9-16) mg/dL Creatinine 0.70 (0.5-1.4) mg/dL Estim Creat Clear Calc 82.5 Estimated GFR > 60 POC Glucose (60-115) mg/dL Random Glucose 131 H (60-115) mg/dL Lactic Acid 1.4 (0.5-2.0) mmol/L Calcium 8.4 D (8.4-10.2) mg/dL Magnesium 2.1 (1.6-2.6) mg/dL Total Bilirubin 0.2 (0.0-1.0) mg/dL AST 37 H D (5-31) U/L ALT 25 (0-31) U/L Alkaline Phosphatase 93 (39-117) U/L Total Creatine Kinase 498 H Troponin I High Sens (<3.5-17.0) ng/L B-Natriuretic Peptide (<100) pg/mL Total Protein 7.1 (6.5-8.0) g/dL Albumin 3.6 (3.5-5.0) g/dL Urine Color Yellow Urine Appearance Clear Urine pH 5.0 (5.0-9.0) Ur Specific [place] >= 1.030 H (1.005-1.025) Urine Protein 100 (2+) H (Neg-Trace) mg/dL Urine Glucose (UA) 500 H (Negative) mg/dL Urine Ketones Negative (Negative) mg/dL Urine Blood Small (1+) H (Negative) Urine Nitrite Negative (Negative) Ur Leukocyte Esterase Negative (Negative) Urine RBC 0-2 (0-2) /HPF Urine WBC 0-5 (0-5) /HPF Ur Squamous Epith Cells 0-2 (0-2) /HPF Ur Transition Epith Cell Present Ur Renal Epithelial Cell Present Urine Bacteria None Seen (None Seen) Hyaline Casts 3-5 (0-2) /LPF COVID-19 (JURGEN) (Negative) COVID-19 Clin Com Influenza Type A (PCR) (Negative) Influenza Type B (PCR) (Negative) RSV RNA Qual (PCR) (Negative) SARS-CoV-2 RNA (RT-PCR) (Negative) 12/20/21 12/20/21 Range/Units 22:34 22:34 WBC (4.8-10.8) X10*3/uL RBC (4.20-5.50) X10*6/uL Hgb (12.0-16.0) g/dl Hct (37.0-47.0) % MCV (80.0-98.0) fL MCH (27.0-33.0) pg MCHC (31.0-35.0) g/dl RDW (11.0-16.0) % Plt Count (160-400) X10*3/uL MPV (9.4-12.3) fL Immature Gran % (Auto) (0.0-0.4) % Neut % (Auto) (45-73) % Lymph % (Auto) (20-40) % Benzie % (Auto) (2-11) % Eos % (Auto) (0-4) % Baso % (Auto) (0-2) % Lymph # (Auto) (1.2-4.9) X10*3/uL [place]zie # (Auto) (0.1-1.2) X10*3/uL Eos # (Auto) (0.0-0.4) X10*3/uL Baso # (Auto) (0.0-0.2) X10*3/uL Abs Immat Gran (auto) (0.00-0.03) X10*3/uL Absolute Neuts (auto) (2.0-8.3) x10*3/uL Absolute Nucleated RBC (0.0-0.012) X10*3/uL Nucleated RBC % (auto) (0.0-0.2) /100WBC PT (10.0-13.1) SEC INR (0.9-1.1) Sodium (135-145) mmol/L Potassium (3.3-5.1) mmol/L Chloride (96-108) mmol/L Carbon Dioxide (22-29) mmol/L Anion Gap (12-20) BUN (9-16) mg/dL Creatinine (0.5-1.4) mg/dL Estim Creat Clear Calc Estimated GFR POC Glucose (60-115) mg/dL Random Glucose (60-115) mg/dL Lactic Acid (0.5-2.0) mmol/L Calcium (8.4-10.2) mg/dL Magnesium (1.6-2.6) mg/dL Total Bilirubin (0.0-1.0) mg/dL AST (5-31) U/L ALT (0-31) U/L Alkaline Phosphatase (39-117) U/L Total Creatine Kinase Troponin I High Sens 13.5 (<3.5-17.0) ng/L B-Natriuretic Peptide (<100) pg/mL Total Protein (6.5-8.0) g/dL Albumin (3.5-5.0) g/dL Urine Color Urine Appearance Urine pH (5.0-9.0) Ur Specific [place] (1.005-1.025) Urine Protein (Neg-Trace) mg/dL Urine Glucose (UA) (Negative) mg/dL Urine Ketones (Negative) mg/dL Urine Blood (Negative) Urine Nitrite (Negative) Ur Leukocyte Esterase (Negative) Urine RBC (0-2) /HPF Urine WBC (0-5) /HPF Ur Squamous Epith Cells (0-2) /HPF Ur Transition Epith Cell Ur Renal Epithelial Cell Urine Bacteria (None Seen) Hyaline Casts (0-2) /LPF COVID-19 (JURGEN) (Negative) COVID-19 Clin Com Influenza Type A (PCR) NEGATIVE (Negative) Influenza Type B (PCR) NEGATIVE (Negative) RSV RNA Qual (PCR) NEGATIVE (Negative) SARS-CoV-2 RNA (RT-PCR) NEGATIVE (Negative) ECG Data ECG #1: Attestation: I personally reviewed and interpreted this ECG as follows: ECG interpretation date: 12/20/21 ECG interpretation time: 17:50 Prior ECG tracings: available for review Interpretation: Ventricular rate of 108, CO normal, QRS normal, QT/QTC normal. EKG with sinus tachycardia, no ST elevations or inversions concerning for ischemia. No significant changes when compared to previous Critical Care Time Critical Care Time Critical Care Time: Yes Total Critical Care Time: 35 Attestation: I attest to this time spent taking care of the patient, obtaining history, physical, reviewing labs, imaging, speaking to my attending Discharge Plan Discharge Clinical Impression: Seizure, AMS (altered mental status), Hypoxia, DVT (deep venous thrombosis) Patient Disposition: Still a Patient Prescriptions: No Action aspirin 81 mg tablet,delayed release (DR/EC) 81 mg PO DAILY Qty: 90 3RF atorvastatin 40 mg tablet 40 mg PO DAILY Qty: 90 3RF hydrochlorothiazide 25 mg tablet 25 mg PO DAILY Qty: 90 3RF levetiracetam 100 mg/mL solution 1,000 mg PO TID Qty: 2700 3RF amlodipine 5 mg tablet 5 mg PO DAILY Qty: 90 3RF (DME) miscellaneous medical supply Misc See Rx Instructions .ROUTE .MEDSUPPLY Qty: 240 6RF Rx Instructions: Disposable Diaper-PullUps. size large 8x daily As directed, 30 day supply baclofen 10 mg tablet 1 tab PO QPM
[2021-12-20 16:41] LABS: Glucose, Whole Blood 162 mg/dL (60-115)
[2021-12-20] MEDS: iohexoL 350 MG/ML 100 ML INFUS..BTL IV (17:05)
[2021-12-20 17:06] VITALS: BP 112/78; O2SAT 99
[2021-12-20 17:07] VITALS: PULSE 104; RESP 18; O2SAT 99; BMI 32.3
--- NOTE | 2021-12-20 17:10 | PC.NURSE ---
Pt comes to ED on EMS stretcher, unresponsive to verbal stimuli on NRB mask. POC 162. Per family pt verbal but confused at baseline. Pt to CT scan immediately with this RN. Returned to rm 17, Labs drawn, EKG obtained, rectal temp and afebrile as charted.
[2021-12-20 17:12] VITALS: TEMP 36.9
[2021-12-20 17:19] VITALS: PULSE 106; RESP 15; O2SAT 100
[2021-12-20] MEDS: Albuterol/Iprat 2.5/0.5MG 3 ML AMPUL.NEB INHALE (17:19)
[2021-12-20] MEDS: levETIRAcetam in NaCl (iso-os) 1,000 MG/100 ML PIGGYBACK 400 MG IV (17:24)
[2021-12-20 17:35] LABS: MANUAL DIFF FLAG NO
[2021-12-20 17:39] VITALS: BP 133/68
[2021-12-20 17:41] LABS: Basophils Percent Auto 0.2 % (0-2); Eosinophils Percent Auto 0.1 % (0-4); Hematocrit 44.1 % (37.0-47.0); Hemoglobin 13.3 g/dl (12.0-16.0); Imm Gran Abs Auto 0.05 X10*3/uL (0.00-0.03); Imm Gran Pct Auto 0.4 % (0.0-0.4); Lymphocytes Absolute Auto 0.6 X10*3/uL (1.2-4.9); Lymphocytes Percent Auto 4.3 % (20-40); Mean Corpuscular HGB Conc 30.2 g/dl (31.0-35.0); Mean Corpuscular Hemoglobin 26.5 pg (27.0-33.0); Mean Corpuscular Volume 87.8 fL (80.0-98.0); Mean Platelet Volume 10.3 fL (9.4-12.3); Monocytes Absolute Auto 0.8 X10*3/uL (0.1-1.2); Neutrophils Absolute Auto 12.3 x10*3/uL (2.0-8.3); Platelet Count 261 X10*3/uL (160-400); Red Blood Count 5.02 X10*6/uL (4.20-5.50); Red Cell Distribution Width 13.5 % (11.0-16.0); White Blood Count 13.8 X10*3/uL (4.8-10.8)
[2021-12-20] MEDS: Midazolam HCl/PF 2 MG/2 ML VIAL IVPUSH (17:42)
[2021-12-20 17:46] LABS: INTERNATIONAL NORM RATIO 1.9 (0.9-1.1); Prothrombin Time 22.6 SEC (10.0-13.1)
[2021-12-20 17:52] LABS: COVID-19 Test Negative (Negative); IDNOW Serial# 55D5AD1C
[2021-12-20 18:06] LABS: Lactic Acid 1.4 mmol/L (0.5-2.0)
[2021-12-20 18:17] LABS: B Type Natriuretic Peptide 175 pg/mL (<100); Troponin-I High Sensitivity 12.5 ng/L (<3.5-17.0)
--- NOTE | 2021-12-20 18:18 | PC.NURSE ---
Addendum entered by Brigid Haywood 12/20/21 18:20: Able to titrste pt off NRB and currently on Oxymask at 4lpm, sat 100%, will continue to titrate down Original Note: Pt noted with stiffening up upper extremities and mild shaking, Versed 2mg given as ordered with good effect. Noemi has completed. Daughter at bedside. VSS. NSR on tele with pacs.
[2021-12-20 18:20] VITALS: BP 140/63; PULSE 104; RESP 24
[2021-12-20 19:02] LABS: Alanine Aminotransferase 25 U/L (0-31); Albumin Level 3.6 g/dL (3.5-5.0); Alkaline Phosphatase 93 U/L (39-117); Anion Gap 15 (12-20); Aspartate Amino Transferase 37 U/L (5-31); Bilirubin Total 0.2 mg/dL (0.0-1.0); Blood Urea Nitrogen 15 mg/dL (9-16); Calcium 8.4 mg/dL (8.4-10.2); Carbon Dioxide 34 mmol/L (22-29); Chloride 96 mmol/L (96-108); Creatinine Clr Calc Pharmacy 82.5; Estimated Glomerular Filt Rate > 60; Glucose Random 131 mg/dL (60-115); Magnesium 2.1 mg/dL (1.6-2.6); Sodium 141 mmol/L (135-145); Total Protein 7.1 g/dL (6.5-8.0)
[2021-12-20 19:04] LABS: Appearance Urine Clear; Color Urine Yellow; Glucose Urine UA 500 mg/dL (Negative); Leukocyte Esterase Urine Negative (Negative); Nitrite Urine Negative (Negative); Specific Gravity - Urine >= 1.030 (1.005-1.025); UMIC TRIGGER UACC YES; Urine Blood Small (1+) (Negative); Urine Ketones Negative (Negative); Urine Protein 100 (2+) mg/dL (Neg-Trace)
[2021-12-20 19:34] LABS: Bacteria Urine None Seen (None Seen); RBC Urine 0-2 /HPF (0-2); Renal Epithelial Cells Urine Present; Squamous Epithelial Cell Urine 0-2 /HPF (0-2); Transitional Epi Cells Urine Present; WBC Urine 0-5 /HPF (0-5)
--- NOTE | 2021-12-20 22:07 | PHA.MEDREC ---
Pharmacy Consult ? Medication Reconciliation Pharmacy has completed the medication reconciliation. Patients was at bedside, not a good historian. Told me she picks up all her meds at [facility], used claims from [facility]
[2021-12-20 23:01] LABS: Troponin-I High Sensitivity 13.5 ng/L (<3.5-17.0)
[2021-12-20 23:35] LABS: Influenza A PCR NEGATIVE (Negative); Influenza B PCR NEGATIVE (Negative); Resp Syncy Virus RNA Qual PCR NEGATIVE (Negative); SARS COV2 PCR INHOUSE NEGATIVE (Negative)
--- NOTE | 2021-12-20 23:42 | P.HPHOSP_ITS ---
History of Present Illness Date of Service: 12/20/21 Chief Complaint: fall, weakness Patient is obtunded, , response to painful stimuli but is not opening her eyes, not responding to my questions, history is obtained mostly from her at bedside who lives with her. He is [place]o-speaking, history is obtained with the help of an direct care staffer. According to the for the past 2 days patient has been coughing, had runny nose, phlegm production, and complaint of shortness of breath. She has been having difficulty with breathing. Last night patient could not sleep due to difficulty breathing, she tried to ambulate out of bed but she was too weak, she needed the help of her . Her reports that this morning a when he tried to help her to the bathroom, she fell on his arms, and seen to have a seizure. Her eyes were rolling back and appear to be having a seizure episode. He reports for the past 1 week she has had left leg swelling, and pain. He also reports low appetite. Unable to obtain review of system from patient herself. Per report patient was found to be 60% on room air on arrival of EMS. While in the ED patient was also noted to have upper extremity rigidity and s haking, possible seizure episode, patient was given Versed and is currently obtunded. 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 On arrival to the ED patient noted to have a normal temperature, heart rate of 105, respiratory rate of 18, satting 99% on 15 L of non-rebreather Labs are significant for WBC count of 13.8, PT of 22.6, INR 1.9, CPK of 498, lactic acid of 1.4, BNP of 175, UA negative. Chest CT angiogram shows no evidence of pulmonary emboli, bilateral atelectasis. No acute intra-abdominal process seen. 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) Alcohol intake: never Patient Tobacco Use Status: Never used Tobacco Smoked in Last 30 Days: No Use of substances other than those prescribed or required for medical reasons: No Advance Directives: Yes Advance Directives on File: Yes Advance Directives Date on File: 02/12/20 service: No Current occupational status: unemployed and disabled Current occupation: right handed Meds Allergies Allergy/AdvReac Type Severity Reaction Status Date / Time apple [Apple] Allergy Severe THROAT Verified 08/30/21 13:20 SWELLING pollen extracts [POLLEN] Allergy Intermediate SNEEZING Verified 08/30/21 13:20 COUGHING ALOT kiwi AdvReac Intermediate VOMITING Verified 08/30/21 13:20 [Kiwi (Actinidia Chinensis)] avocado [Avocado] AdvReac Mild VOMITING Verified 08/30/21 13:20 Active Medications: Current Medications Pharmacy Consult (Consult Rx Perform Med Rec) 1 each MISCELLANE ONCE PRN PRN Reason: Consult order Home Medications Medication Instructions Recorded Confirmed Last Taken Type baclofen 10 mg tablet 1 tab PO QPM 12/20/21 12/20/21 Unknown History Physical Exam Vital Signs and Narrative: Vital Signs: Last Vital Signs Temp 98.5 F 12/20/21 17:12 Pulse 104 H 12/20/21 18:20 Resp 24 H 12/20/21 18:20 BP 140/63 H 12/20/21 18:20 Pulse Ox 99 12/20/21 17:07 O2 Del Method 12/20/21 18:20 O2 Flow Rate 4 12/20/21 18:20 Oxygen Flow Rate 15 12/20/21 17:07 BMI result Body Mass Index 32.3 Const: Other: Patient is obtunded, responds to painful stimuli General: cooperative and no acute distress Eyes: General: appearance normal, both eyes and all related structures Neck: Other: Chronic contractures of neck to the right Resp: Other: unable to assess Cardio: Rate: regular rate Rhythm: regular rhythm GI: Palpation (GI): Soft to palpation Auscultation: normal bowel sounds Skin: General skin exam: no rashes or lesions noted Neuro: Other: unable to exam Extrem: General: Yes normal to inspection and Yes no pedal edema Results Labs CBC and Chem 7: 12/21/21 06:21 12/21/21 06:21 Labs: Laboratory Results - last 24 hr 12/20/21 12/20/21 12/20/21 16:36 17:26 17:27 MCV 87.8 MCH 26.5 L MCHC 30.2 L RDW 13.5 Plt Count 261 MPV 10.3 Immature Gran % (Auto) 0.4 Neut % (Auto) 89.0 H Lymph % (Auto) 4.3 L [place] % (Auto) 6.0 Eos % (Auto) 0.1 Baso % (Auto) 0.2 Lymph # (Auto) 0.6 L [place] # (Auto) 0.8 Eos # (Auto) 0.0 Baso # (Auto) 0.0 Abs Immat Gran (auto) 0.05 H Absolute Neuts (auto) 12.3 H Absolute Nucleated RBC 0.000 Nucleated RBC % (auto) 0.0 PT INR Anion Gap Estim Creat Clear Calc Estimated GFR POC Glucose 162 H Random Glucose Lactic Acid Calcium Magnesium Total Bilirubin AST ALT Alkaline Phosphatase Total Creatine Kinase Troponin I High Sens B-Natriuretic Peptide Total Protein Albumin Urine Color Urine Appearance Urine pH Ur Specific Red [place] Urine Protein Urine Glucose (UA) Urine Ketones Urine Blood Urine Nitrite Ur Leukocyte Esterase Urine RBC Urine WBC Ur Squamous Epith Cells Ur Transition Epith Cell Ur Renal Epithelial Cell Urine Bacteria Hyaline Casts COVID-19 (JURGEN) Negative COVID-19 Clin Com See Note Influenza Type A (PCR) Influenza Type B (PCR) RSV RNA Qual (PCR) SARS-CoV-2 RNA (RT-PCR) 12/20/21 12/20/21 12/20/21 17:27 17:27 17:27 MCV MCH MCHC RDW Plt Count MPV Immature Gran % (Auto) Neut % (Auto) Lymph % (Auto) [place] % (Auto) Eos % (Auto) Baso % (Auto) Lymph # (Auto) [place] # (Auto) Eos # (Auto) Baso # (Auto) Abs Immat Gran (auto) Absolute Neuts (auto) Absolute Nucleated RBC Nucleated RBC % (auto) PT 22.6 H INR 1.9 H Anion Gap Estim Creat Clear Calc Estimated GFR POC Glucose Random Glucose Lactic Acid Calcium Magnesium Total Bilirubin AST ALT Alkaline Phosphatase Total Creatine Kinase Cancelled Troponin I High Sens 12.5 B-Natriuretic Peptide 175 H Total Protein Albumin Urine Color Urine Appearance Urine pH Ur Specific Red [place] Urine Protein Urine Glucose (UA) Urine Ketones Urine Blood Urine Nitrite Ur Leukocyte Esterase Urine RBC Urine WBC Ur Squamous Epith Cells Ur Transition Epith Cell Ur Renal Epithelial Cell Urine Bacteria Hyaline Casts COVID-19 (JURGEN) COVID-19 Clin Com Influenza Type A (PCR) Influenza Type B (PCR) RSV RNA Qual (PCR) SARS-CoV-2 RNA (RT-PCR) 12/20/21 12/20/21 12/20/21 17:27 18:26 18:48 MCV MCH MCHC RDW Plt Count MPV Immature Gran % (Auto) Neut % (Auto) Lymph % (Auto) [place] % (Auto) Eos % (Auto) Baso % (Auto) Lymph # (Auto) [place] # (Auto) Eos # (Auto) Baso # (Auto) Abs Immat Gran (auto) Absolute Neuts (auto) Absolute Nucleated RBC Nucleated RBC % (auto) PT INR Anion Gap 15 Estim Creat Clear Calc 82.5 Estimated GFR > 60 POC Glucose Random Glucose 131 H Lactic Acid 1.4 Calcium 8.4 D Magnesium 2.1 Total Bilirubin 0.2 AST 37 H D ALT 25 Alkaline Phosphatase 93 Total Creatine Kinase 498 H Troponin I High Sens B-Natriuretic Peptide Total Protein 7.1 Albumin 3.6 Urine Color Yellow Urine Appearance Clear Urine pH 5.0 Ur Specific Red [place] >= 1.030 H Urine Protein 100 (2+) H Urine Glucose (UA) 500 H Urine Ketones Negative Urine Blood Small (1+) H Urine Nitrite Negative Ur Leukocyte Esterase Negative Urine RBC 0-2 Urine WBC 0-5 Ur Squamous Epith Cells 0-2 Ur Transition Epith Cell Present Ur Renal Epithelial Cell Present Urine Bacteria None Seen Hyaline Casts 3-5 COVID-19 (JURGEN) COVID-19 Clin Com Influenza Type A (PCR) Influenza Type B (PCR) RSV RNA Qual (PCR) SARS-CoV-2 RNA (RT-PCR) 12/20/21 12/20/21 22:34 22:34 MCV MCH MCHC RDW Plt Count MPV Immature Gran % (Auto) Neut % (Auto) Lymph % (Auto) [place] % (Auto) Eos % (Auto) Baso % (Auto) Lymph # (Auto) [place] # (Auto) Eos # (Auto) Baso # (Auto) Abs Immat Gran (auto) Absolute Neuts (auto) Absolute Nucleated RBC Nucleated RBC % (auto) PT INR Anion Gap Estim Creat Clear Calc Estimated GFR POC Glucose Random Glucose Lactic Acid Calcium Magnesium Total Bilirubin AST ALT Alkaline Phosphatase Total Creatine Kinase Troponin I High Sens 13.5 B-Natriuretic Peptide Total Protein Albumin Urine Color Urine Appearance Urine pH Ur Specific [place] Urine Protein Urine Glucose (UA) Urine Ketones Urine Blood Urine Nitrite Ur Leukocyte Esterase Urine RBC Urine WBC Ur Squamous Epith Cells Ur Transition Epith Cell Ur Renal Epithelial Cell Urine Bacteria Hyaline Casts COVID-19 (JURGEN) COVID-19 Clin Com Influenza Type A (PCR) NEGATIVE Influenza Type B (PCR) NEGATIVE RSV RNA Qual (PCR) NEGATIVE SARS-CoV-2 RNA (RT-PCR) NEGATIVE Imaging Radiologist's Impressions: Impressions Head CT 12/20/21 16:43 IMPRESSION: 1. No acute intracranial pathology. 2. Unchanged encephalomalacia in the bilateral frontal lobes, right basal ganglia, and right parieto-occipital lobe. This critical result was discussed with BEVERLY Peguero at 4:50 PM on 12/20/2021 and it was ascertained that the content and urgency of the report was understood at the time of direct communication. Cervical Spine CT 12/20/21 16:55 IMPRESSION: No subluxation or acute cervical spine fracture. Abdomen/Pelvis CT 12/20/21 17:20 IMPRESSION: No evidence for pulmonary emboli. Bilateral atelectasis. No acute intra-abdominal process seen. Multi fibroid uterus with fullness to the endometrial cavity possibly due to submucosal fibroid with appearance similar to the 2016 pelvic ultrasound. If there is clinical concern, repeat pelvic ultrasound could be attempted. VTE: Negative Chest CTA 12/20/21 17:20 IMPRESSION: No evidence for pulmonary emboli. Bilateral atelectasis. No acute intra-abdominal process seen. Multi fibroid uterus with fullness to the endometrial cavity possibly due to submucosal fibroid with appearance similar to the 2016 pelvic ultrasound. If there is clinical concern, repeat pelvic ultrasound could be attempted. VTE: Negative Venous Duplex 12/20/21 19:48 IMPRESSION: 1. Very small amount of echogenic, noncompressible nonocclusive thrombus in the left popliteal vein. This may represent chronic thrombus related to prior DVT. 2. No evidence of right lower extremity DVT. Assessment and Plan (1) Encephalopathy: Status: Acute (2) Seizure: Status: Acute (3) Acute respiratory failure with hypoxia: Status: Acute (4) DVT (deep venous thrombosis): Status: Acute Plan 66-year-old female with past medical history of CVA with left hemiparesis, history of seizures, presents to the hospital after hypoxic episode #Acute hypoxic respiratory failure - unclear etiology - kitchen noted to be 60% on room air by EMS - CT angiogram negative for any PE or evidence of pneumonia - at this time will titrate oxygen down as tolerated # encephalopathy - likely postictal state secondary to seizure - patient was loaded with Keppra as well as given Versed in the ED after being noticed to have a seizure-like - will consult Neurology, obtain brain MRI # history of CVA - continue aspirin, statin - neurology consult different 7 # seizure - noted to be seizing by her at home as well as by ED staff - given Versed and loaded with Keppra - will consult neurology - continue home Keppra # DVT - has evidence of DVT on venous duplex - continues to have swelling in her leg - unclear patient was treated for it in the past - given that she is still symptomatic will treat with Lovenox b.i.d. # hypertension - stable - continue amlodipine DVT prophylaxis: Lovenox Quality Stroke Does the patient have a stroke diagnosis?: No VTE Prior VTE?: No VTE Risk Level:: Medical - moderate - high VTE Device Contraindication: Treatment Not Indicated VTE Drug Contraindication: N/A - Med Ordered
[2021-12-21] VITALS (21 sets, daily range): BP systolic 84–160; BP diastolic 48–91; PULSE 85–138; RESP 16–23; TEMP 34.1–37.8; O2SAT 92–100; BMI 30.3
[2021-12-21 00:21] LABS: Hematocrit 47.2 % (37.0-47.0); Hemoglobin 13.9 g/dl (12.0-16.0); Mean Corpuscular HGB Conc 29.4 g/dl (31.0-35.0); Mean Corpuscular Hemoglobin 26.4 pg (27.0-33.0); Mean Corpuscular Volume 89.6 fL (80.0-98.0); Mean Platelet Volume 10.2 fL (9.4-12.3); Platelet Count 227 X10*3/uL (160-400); Red Blood Count 5.27 X10*6/uL (4.20-5.50); Red Cell Distribution Width 13.4 % (11.0-16.0); White Blood Count 14.3 X10*3/uL (4.8-10.8)
[2021-12-21 00:27] LABS: INTERNATIONAL NORM RATIO 1.7 (0.9-1.1); Prothrombin Time 19.5 SEC (10.0-13.1)
[2021-12-21] MEDS: Enoxaparin Sodium 80 MG/0.8 ML SYRINGE 85 MG SUBCUT (00:54)
[2021-12-21] MEDS: 0.9 % Sodium Chloride Flush 3 ML SYRINGE IVFLUSH ×2 (00:57→18:44)
[2021-12-21] MEDS: Lactated Ringers 1,000 ML 100 ML IVCONT ×3 (00:59→19:31)
--- NOTE | 2021-12-21 01:04 | PC.NURSE ---
Pt' s is at bedside, pt has IVF running, pt is on the monitor and it shows sinus Tach, NC 2L, has IV on LAC. Left extremities is swollen and both calf are war to touch, pt's says she has been complaining of lower extremities pain for over 5 days. provider is aware.
--- NOTE | 2021-12-21 02:20 | PC.NURSE ---
Patient arrived to overflow unit in a stretcher bed on supplemental O2 and tele monitor. Patient was transferred from a stretcher to the hospital bed. Patient noted to be unresponsive, unable to manage oral secretions, drooling, making gurgling sounds d/t presence of excessive secretions. O2 Sat 84% on O2 at 2 LPM NC, RR 30. Pulse 124 on tele monitor, A-Fib. Rapid response called-Dr Nassar and Dr. Price at bedside with rapid response team. Patient stabilized with increased O2 flow to 6 LPM by recommendation of MD at RT, patient suctioned with yankauer suction. Patient is back to baseline-O2 98% on 6 LPM, RR 22, no s/s of respiratory distress noted.
--- NOTE | 2021-12-21 03:28 | PC.NURSE ---
Patient remains unresponsive to name and painful stimuli: sternal rub. RR 24, O2 Sat 98% on O2 at 2 LPM NC. P 112. BP 148/89, no s/s of respiratory distress noted, no exessive secretions present at this time. Patient's is at bedside in a recliner chair.
[2021-12-21 06:26] LABS: MANUAL DIFF FLAG NO
[2021-12-21 06:31] LABS: Basophils Percent Auto 0.2 % (0-2); Eosinophils Percent Auto 0.2 % (0-4); Hematocrit 42.2 % (37.0-47.0); Hemoglobin 12.4 g/dl (12.0-16.0); Imm Gran Abs Auto 0.06 X10*3/uL (0.00-0.03); Imm Gran Pct Auto 0.5 % (0.0-0.4); Lymphocytes Absolute Auto 1.3 X10*3/uL (1.2-4.9); Lymphocytes Percent Auto 10.4 % (20-40); Mean Corpuscular HGB Conc 29.4 g/dl (31.0-35.0); Mean Corpuscular Hemoglobin 26.7 pg (27.0-33.0); Mean Corpuscular Volume 90.9 fL (80.0-98.0); Mean Platelet Volume 10.4 fL (9.4-12.3); Monocytes Absolute Auto 1.4 X10*3/uL (0.1-1.2); Monocytes Percent Auto 11.5 % (2-11); Neutrophils Absolute Auto 9.5 x10*3/uL (2.0-8.3); Neutrophils Percent Auto 77.2 % (45-73); Platelet Count 228 X10*3/uL (160-400); Red Blood Count 4.64 X10*6/uL (4.20-5.50); Red Cell Distribution Width 13.4 % (11.0-16.0); White Blood Count 12.4 X10*3/uL (4.8-10.8)
[2021-12-21 07:01] LABS: Anion Gap 15 (12-20); Blood Urea Nitrogen 13 mg/dL (9-16); Calcium 8.6 mg/dL (8.4-10.2); Carbon Dioxide 36 mmol/L (22-29); Chloride 96 mmol/L (96-108); Creatinine Clr Calc Pharmacy 83.5; Estimated Glomerular Filt Rate > 60; Glucose Random 110 mg/dL (60-115); Potassium 3.8 mmol/L (3.3-5.1); Sodium 143 mmol/L (135-145)
[2021-12-21] MEDS: Enoxaparin Sodium 80 MG/0.8 ML SYRINGE SUBCUT ×2 (08:37→19:41)
--- NOTE | 2021-12-21 10:16 | PC.NURSE ---
patient responding only to painful stimulus, security monitor sinus tach, vss, pt is npo messaged dr cavazos about changing medications to ivp as patient is unable to take po at this time, de la torre cath patient draining, ivf running per order, family at bedside, call ortega within reach, will continue to monitor.
[2021-12-21 10:45] LABS: Hematocrit 45.5 % (37.0-47.0); Hemoglobin 13.5 g/dl (12.0-16.0); Mean Corpuscular HGB Conc 29.7 g/dl (31.0-35.0); Mean Corpuscular Hemoglobin 26.9 pg (27.0-33.0); Mean Corpuscular Volume 90.8 fL (80.0-98.0); Mean Platelet Volume 10.9 fL (9.4-12.3); Platelet Count 239 X10*3/uL (160-400); Red Blood Count 5.01 X10*6/uL (4.20-5.50); Red Cell Distribution Width 13.5 % (11.0-16.0); White Blood Count 11.7 X10*3/uL (4.8-10.8)
[2021-12-21 10:49] LABS: INTERNATIONAL NORM RATIO 1.2 (0.9-1.1)
[2021-12-21 10:52] LABS: Partial Thromboplastin Time 40.4 SEC (26.0-36.4)
--- NOTE | 2021-12-21 12:24 | PC.NURSE ---
pt to mri with RN/monitor/O2
--- NOTE | 2021-12-21 13:01 | P.PNIM_ITS ---
Subjective Subjective Date of Service: 12/21/21 Interval History: Patient continues to be drowsy and minimally responsive to verbal stimulus. On 3 L supplemental oxygen Review of Systems Review of Systems: Yes Unobtainable due to mental status Physical Exam Vital Signs: Vital Signs: Last Vital Signs Temp 98.1 F 12/21/21 09:10 Pulse 115 H 12/21/21 09:10 Resp 22 H 12/21/21 09:10 BP 150/56 H 12/21/21 09:10 Pulse Ox 93 12/21/21 09:10 O2 Del Method 12/21/21 09:10 O2 Flow Rate 2.5 12/21/21 09:10 Oxygen Flow Rate 15 12/20/21 17:07 BMI result Body Mass Index 30.3 Middle-aged female lying in bed in no distress on 3 L supplemental oxygen Neck contracture Regular rate and rhythm, S1-S2 heard Regular breath sounds bilaterally, no wheezing or crackles appreciated Abdomen soft nontender, no guarding, no rigidity Patient is drowsy and minimally response to move the stimulus, response and withdraws to painful stimulus Psych: Drowsy No pedal edema Objective Data Active Medications Acetaminophen (Acetaminophen 325 Mg Tablet) 650 mg PO Q6H PRN PRN Reason: Pain, Mild (Pain Scale 1-3) Amlodipine Besylate (Amlodipine Besylate 5 Mg Tablet) 5 mg PO DAILY [facility]; Protocol Last Admin: 12/21/21 10:29 Dose: Not Given Documented By: CALVIN Non-Admin Reason: NPO Aspirin (Aspirin Enteric Coated 81 Mg Tablet.Dr) 81 mg PO DAILY [facility] Last Admin: 12/21/21 10:29 Dose: Not Given Documented By: CALVIN Non-Admin Reason: NPO Atorvastatin Calcium (Atorvastatin Calcium 40 Mg Tablet) 40 mg PO DAILY [facility] Last Admin: 12/21/21 10:29 Dose: Not Given Documented By: CALVIN Non-Admin Reason: NPO Baclofen (Baclofen 10 Mg Tablet) 10 mg PO BEDTIME [facility] Docusate Sodium (Docusate Sodium 100 Mg Capsule) 100 mg PO DAILY PRN PRN Reason: Constipation Enoxaparin Sodium (Enoxaparin Sodium 80 Mg/0.8 Ml Syringe) 80 mg SUBCUT Q12H [facility] Last Admin: 12/21/21 08:37 Dose: 80 mg Documented By: HILARY Hydrochlorothiazide (Hydrochlorothiazide 25 Mg Tablet) 25 mg PO DAILY [facility]; Protocol Last Admin: 12/21/21 10:30 Dose: Not Given Documented By: CALVIN Non-Admin Reason: NPO Lactated Ringer's (Lr) 1,000 mls @ 100 mls/hr IVCONT .Q10H [facility] Last Admin: 12/21/21 10:15 Dose: 100 mls/hr Documented By: CALVIN Levetiracetam (Keppra) 1,000 mg in 100 mls @ 400 mls/hr IV TID [facility] Ondansetron HCl (Ondansetron Hcl 4 Mg/2 Ml Vial) 4 mg IVPUSH Q8H PRN PRN Reason: Nausea and Vomiting Pharmacy Consult (Consult Rx Perform Med Rec) 1 each MISCELLANE ONCE PRN PRN Reason: Consult order Sodium Chloride (0.9 % Sodium Chloride Flush 3 Ml Syringe) 3 ml IVFLUSH QSHIFT [facility] Last Admin: 12/21/21 08:37 Dose: Not Given Documented By: HILARY Non-Admin Reason: IV Running Labs CBC & Chem 7: 12/21/21 10:06 12/21/21 06:21 Labs: Laboratory Results - last 24 hr 12/20/21 12/20/21 12/20/21 16:36 17:26 17:27 MCV 87.8 MCH 26.5 L MCHC 30.2 L RDW 13.5 Plt Count 261 MPV 10.3 Immature Gran % (Auto) 0.4 Neut % (Auto) 89.0 H Lymph % (Auto) 4.3 L Clark % (Auto) 6.0 Eos % (Auto) 0.1 Baso % (Auto) 0.2 Lymph # (Auto) 0.6 L Clark # (Auto) 0.8 Eos # (Auto) 0.0 Baso # (Auto) 0.0 Abs Immat Gran (auto) 0.05 H Absolute Neuts (auto) 12.3 H Absolute Nucleated RBC 0.000 Nucleated RBC % (auto) 0.0 PT INR APTT Anion Gap Estim Creat Clear Calc Estimated GFR POC Glucose 162 H Random Glucose Lactic Acid Calcium Magnesium Total Bilirubin AST ALT Alkaline Phosphatase Total Creatine Kinase Troponin I High Sens B-Natriuretic Peptide Total Protein Albumin Urine Color Urine Appearance Urine pH Ur Specific [place] Urine Protein Urine Glucose (UA) Urine Ketones Urine Blood Urine Nitrite Ur Leukocyte Esterase Urine RBC Urine WBC Ur Squamous Epith Cells Ur Transition Epith Cell Ur Renal Epithelial Cell Urine Bacteria Hyaline Casts COVID-19 ([facility]GEN) Negative COVID-19 Clin Com See Note Influenza Type A (PCR) Influenza Type B (PCR) RSV RNA Qual (PCR) SARS-CoV-2 RNA (RT-PCR) 12/20/21 12/20/21 12/20/21 17:27 17:27 17:27 MCV MCH MCHC RDW Plt Count MPV Immature Gran % (Auto) Neut % (Auto) Lymph % (Auto) Clark % (Auto) Eos % (Auto) Baso % (Auto) Lymph # (Auto) Clark # (Auto) Eos # (Auto) Baso # (Auto) Abs Immat Gran (auto) Absolute Neuts (auto) Absolute Nucleated RBC Nucleated RBC % (auto) PT 22.6 H INR 1.9 H APTT Anion Gap Estim Creat Clear Calc Estimated GFR POC Glucose Random Glucose Lactic Acid Calcium Magnesium Total Bilirubin AST ALT Alkaline Phosphatase Total Creatine Kinase Cancelled Troponin I High Sens 12.5 B-Natriuretic Peptide 175 H Total Protein Albumin Urine Color Urine Appearance Urine pH Ur Specific [place] Urine Protein Urine Glucose (UA) Urine Ketones Urine Blood Urine Nitrite Ur Leukocyte Esterase Urine RBC Urine WBC Ur Squamous Epith Cells Ur Transition Epith Cell Ur Renal Epithelial Cell Urine Bacteria Hyaline Casts COVID-19 ([facility]) COVID-19 Clin Com Influenza Type A (PCR) Influenza Type B (PCR) RSV RNA Qual (PCR) SARS-CoV-2 RNA (RT-PCR) 12/20/21 12/20/21 12/20/21 17:27 18:26 18:48 MCV MCH MCHC RDW Plt Count MPV Immature Gran % (Auto) Neut % (Auto) Lymph % (Auto) Clark % (Auto) Eos % (Auto) Baso % (Auto) Lymph # (Auto) Clark # (Auto) Eos # (Auto) Baso # (Auto) Abs Immat Gran (auto) Absolute Neuts (auto) Absolute Nucleated RBC Nucleated RBC % (auto) PT INR APTT Anion Gap 15 Estim Creat Clear Calc 82.5 Estimated GFR > 60 POC Glucose Random Glucose 131 H Lactic Acid 1.4 Calcium 8.4 D Magnesium 2.1 Total Bilirubin 0.2 AST 37 H D ALT 25 Alkaline Phosphatase 93 Total Creatine Kinase 498 H Troponin I High Sens B-Natriuretic Peptide Total Protein 7.1 Albumin 3.6 Urine Color Yellow Urine Appearance Clear Urine pH 5.0 Ur Specific [place] >= 1.030 H Urine Protein 100 (2+) H Urine Glucose (UA) 500 H Urine Ketones Negative Urine Blood Small (1+) H Urine Nitrite Negative Ur Leukocyte Esterase Negative Urine RBC 0-2 Urine WBC 0-5 Ur Squamous Epith Cells 0-2 Ur Transition Epith Cell Present Ur Renal Epithelial Cell Present Urine Bacteria None Seen Hyaline Casts 3-5 COVID-19 ([facility]) COVID-19 Clin Com Influenza Type A (PCR) Influenza Type B (PCR) RSV RNA Qual (PCR) SARS-CoV-2 RNA (RT-PCR) 12/20/21 12/20/21 12/21/21 22:34 22:34 00:14 MCV MCH MCHC RDW Plt Count MPV Immature Gran % (Auto) Neut % (Auto) Lymph % (Auto) Clark % (Auto) Eos % (Auto) Baso % (Auto) Lymph # (Auto) Clark # (Auto) Eos # (Auto) Baso # (Auto) Abs Immat Gran (auto) Absolute Neuts (auto) Absolute Nucleated RBC Nucleated RBC % (auto) PT 19.5 H INR 1.7 H APTT Anion Gap Estim Creat Clear Calc Estimated GFR POC Glucose Random Glucose Lactic Acid Calcium Magnesium Total Bilirubin AST ALT Alkaline Phosphatase Total Creatine Kinase Troponin I High Sens 13.5 B-Natriuretic Peptide Total Protein Albumin Urine Color Urine Appearance Urine pH Ur Specific [place] Urine Protein Urine Glucose (UA) Urine Ketones Urine Blood Urine Nitrite Ur Leukocyte Esterase Urine RBC Urine WBC Ur Squamous Epith Cells Ur Transition Epith Cell Ur Renal Epithelial Cell Urine Bacteria Hyaline Casts COVID-19 ([facility]) COVID-19 Clin Com Influenza Type A (PCR) NEGATIVE Influenza Type B (PCR) NEGATIVE RSV RNA Qual (PCR) NEGATIVE SARS-CoV-2 RNA (RT-PCR) NEGATIVE 12/21/21 12/21/21 12/21/21 00:14 06:21 06:21 MCV 89.6 90.9 MCH 26.4 L 26.7 L MCHC 29.4 L 29.4 L RDW 13.4 13.4 Plt Count 227 228 MPV 10.2 10.4 Immature Gran % (Auto) 0.5 H Neut % (Auto) 77.2 H Lymph % (Auto) 10.4 L Clark % (Auto) 11.5 H Eos % (Auto) 0.2 Baso % (Auto) 0.2 Lymph # (Auto) 1.3 Clark # (Auto) 1.4 H Eos # (Auto) 0.0 Baso # (Auto) 0.0 Abs Immat Gran (auto) 0.06 H Absolute Neuts (auto) 9.5 H Absolute Nucleated RBC 0.000 0.000 Nucleated RBC % (auto) 0.0 0.0 PT INR APTT Anion Gap 15 Estim Creat Clear Calc 83.5 Estimated GFR > 60 POC Glucose Random Glucose 110 Lactic Acid Calcium 8.6 Magnesium Total Bilirubin AST ALT Alkaline Phosphatase Total Creatine Kinase Troponin I High Sens B-Natriuretic Peptide Total Protein Albumin Urine Color Urine Appearance Urine pH Ur Specific [place] Urine Protein Urine Glucose (UA) Urine Ketones Urine Blood Urine Nitrite Ur Leukocyte Esterase Urine RBC Urine WBC Ur Squamous Epith Cells Ur Transition Epith Cell Ur Renal Epithelial Cell Urine Bacteria Hyaline Casts COVID-19 ([facility]) COVID-19 Clin Com Influenza Type A (PCR) Influenza Type B (PCR) RSV RNA Qual (PCR) SARS-CoV-2 RNA (RT-PCR) 12/21/21 12/21/21 10:06 10:06 MCV 90.8 MCH 26.9 L MCHC 29.7 L RDW 13.5 Plt Count 239 MPV 10.9 Immature Gran % (Auto) Neut % (Auto) Lymph % (Auto) Clark % (Auto) Eos % (Auto) Baso % (Auto) Lymph # (Auto) Clark # (Auto) Eos # (Auto) Baso # (Auto) Abs Immat Gran (auto) Absolute Neuts (auto) Absolute Nucleated RBC 0.000 Nucleated RBC % (auto) 0.0 PT 14.0 H INR 1.2 H APTT 40.4 H Anion Gap Estim Creat Clear Calc Estimated GFR POC Glucose Random Glucose Lactic Acid Calcium Magnesium Total Bilirubin AST ALT Alkaline Phosphatase Total Creatine Kinase Troponin I High Sens B-Natriuretic Peptide Total Protein Albumin Urine Color Urine Appearance Urine pH Ur Specific [place] Urine Protein Urine Glucose (UA) Urine Ketones Urine Blood Urine Nitrite Ur Leukocyte Esterase Urine RBC Urine WBC Ur Squamous Epith Cells Ur Transition Epith Cell Ur Renal Epithelial Cell Urine Bacteria Hyaline Casts COVID-19 ([facility]) COVID-19 Clin Com Influenza Type A (PCR) Influenza Type B (PCR) RSV RNA Qual (PCR) SARS-CoV-2 RNA (RT-PCR) Assessment and Plan (1) Acute respiratory failure with hypoxia: Status: Acute (2) Encephalopathy: Status: Acute (3) Seizure: Status: Acute Plan 66-year-old female with past medical history of CVA with left hemiparesis, history of seizures, presents to the hospital after seizure episode. #. Acute hypoxemic respiratory failure -likely due to hypoventilation in the setting of decreased mentation. CT angio negative for PE. #. Acute encephalopathy -likely epileptic and postictal confusion. Neurology consult pending. Also obtaining ABG -MRI brain pending #. Seizure disorder -apparently had a witnessed seizure. Given Versed and loaded with Keppra. Neurology consult pending. Order EEG and MRI brain to complete workup. #. DVT -noted on venous duplex. Does have chronic DVT but unclear if she was treated in the past. Will continue Lovenox therapeutic dose #. Essential hypertension -resume p.o. antihypertensives once mentation improves and patient is no longer NPO DVT prophylaxis: Therapeutic dose Lovenox Full code Diet: NPO Quality Stroke Does the patient have a stroke diagnosis?: No VTE Prior VTE?: Yes VTE Risk Level:: Medical - moderate - high VTE Device Contraindication: Treatment Not Indicated VTE Drug Contraindication: N/A - Med Ordered
--- NOTE | 2021-12-21 13:08 | MHC.CM.PN ---
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
--- NOTE | 2021-12-21 13:11 | PC.NURSE ---
patient went to MRI, was unable to have the MRI performed as she couldnt tolerate her head being moved from the position it was in and began moving, upon return to the overflow unit patients O2 sat was in the 80s, O2 was increased to 4L NC, pt recovered to low 90s, forehead sensor was applied to better obtain an accurate O2 sat, patients O2 sat had increased to 96%, O2 was decreased to 3L and will titrate down.
[2021-12-21 13:56] LABS: ABG Refer to POC result
[2021-12-21 13:56] LABS: ABG Base Excess 18.8 mmol/L; ABG HCO3 53 mmol/L (22-26); ABG pCO2 125 mmHg (32-45); ABG pH 7.23 (7.35-7.45); ABG pO2 41 mmHg (83-108)
--- NOTE | 2021-12-21 14:00 | PC.NURSE ---
Dr. Linares notified of critical blood gas via tiger text
--- NOTE | 2021-12-21 14:29 | PM.EVENT ---
Event Note Date of Service: 12/21/21 Event Note: ABG with pH 7.2 and PC02 125. Hypercapnia explains the patient's hypoxemia and acute metabolic encephalopathy. Consulted Dr. Hendrix for intubation and patient will be transferred to the intensive care unit
[2021-12-21] MEDS: propofoL 1,000 MG/100 ML VIAL 4.81 MG IVCONT (14:40)
--- NOTE | 2021-12-21 14:41 | ECG_ITS ---
Test Reason : respiratory failure Blood Pressure : / mmHG Vent. Rate : 104 BPM Atrial Rate : 104 BPM P-R Int : 136 ms QRS Dur : 084 ms QT Int : 330 ms P-R-T Axes : 054 038 055 degrees QTc Int : 433 ms Sinus tachycardia with occasional Premature atrial complexes Abnormal ECG When compared with ECG of 20-DEC-2021 17:47, Nonspecific T wave abnormality no longer evident in Lateral leads Premature atrial complexes are new Referred By: Gurjit Hendrix Electronically Signed By:VERNON RODRIGUEZ MD
--- NOTE | 2021-12-21 16:09 | P.CNNE_ITS ---
History of Present Illness Data of Consult Service Date: 12/21/21 Primary Care Provider: Unknown Physician HPI Reason for consult: Obtundation, respiratory failure, ? Seizure 66 yr old woman with 2 day h/o coughing, runny nose, phlegm production, and complaint of shortness of breath.? She has been having difficulty with breathing.? Last night patient could not sleep due to difficulty breathing, she tried to ambulate out of bed but she was too weak, she needed the help of her .? Her reports that this morning when he tried to help her to the bathroom, she fell on his arms, her eyes were rolling back and appeared to be having a seizure episode.? He reports for the past 1 week she has had left leg swelling, and pain.? He also reports low appetite.? Unable to obtain review of system from patient herself. Per report patient was found to be 60% on room air on arrival of EMS. While in the ED patient was also noted to have upper extremity rigidity and shaking, possible seizure episode, patient was given Versed and is currently obtunded. 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 CT brain shows unchanged bifrontal , right basal ganglia and right parieto-occipital encephalomalacia. Sh eis currently intibated and on a respirator on Propofol for severe hypoxia Review of Systems Review of Systems: Yes Unobtainable due to mental condition and Unobtainable due to mental status PMFSH Past Medical History Medical History Brain cancer DVT (deep venous thrombosis) Essential hypertension HTN (hypertension) Seizure Stroke Torticollis, acquired Unspecified urinary incontinence Family History Family History Mother Diabetes Father Heart disease Family/Other Breast cancer Brain cancer Diabetes Surgical History Surgical History H/O craniotomy Social History Social History Household Members: Spouse Housing: Unknown / Unable to assess Do you presently have visiting nurse or other home services: Yes (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) Alcohol intake: never Patient Tobacco Use Status: Never used Tobacco Advance Directives Date on File: 02/12/20 service: No Current occupational status: unemployed and disabled Current occupation: right handed Meds Allergies Allergy/AdvReac Type Severity Reaction Status Date / Time apple [Apple] Allergy Severe THROAT Verified 08/30/21 13:20 SWELLING pollen extracts [POLLEN] Allergy Intermediate SNEEZING Verified 08/30/21 13:20 COUGHING ALOT kiwi AdvReac Intermediate VOMITING Verified 08/30/21 13:20 [Kiwi (Actinidia Chinensis)] avocado [Avocado] AdvReac Mild VOMITING Verified 08/30/21 13:20 Active Medications: Current Medications Acetaminophen (Acetaminophen 325 Mg Tablet) 650 mg PO Q6H PRN PRN Reason: Pain, Mild (Pain Scale 1-3) Amlodipine Besylate (Amlodipine Besylate 5 Mg Tablet) 5 mg PO DAILY [facility]; Protocol Last Admin: 12/21/21 10:29 Dose: Not Given Aspirin (Aspirin Enteric Coated 81 Mg Tablet.Dr) 81 mg PO DAILY [facility] Last Admin: 12/21/21 10:29 Dose: Not Given Atorvastatin Calcium (Atorvastatin Calcium 40 Mg Tablet) 40 mg PO DAILY [facility] Last Admin: 12/21/21 10:29 Dose: Not Given Baclofen (Baclofen 10 Mg Tablet) 10 mg PO BEDTIME [facility] Docusate Sodium (Docusate Sodium 100 Mg Capsule) 100 mg PO DAILY PRN PRN Reason: Constipation Enoxaparin Sodium (Enoxaparin Sodium 80 Mg/0.8 Ml Syringe) 80 mg SUBCUT Q12H [facility] Last Admin: 12/21/21 08:37 Dose: 80 mg Hydrochlorothiazide (Hydrochlorothiazide 25 Mg Tablet) 25 mg PO DAILY [facility]; Protocol Last Admin: 12/21/21 10:30 Dose: Not Given Lactated Ringer's (Lr) 1,000 mls @ 100 mls/hr IVCONT .Q10H [facility] Last Infusion: 12/21/21 14:40 Dose: 10 mls/hr Levetiracetam (Keppra) 1,000 mg in 100 mls @ 400 mls/hr IV TID [facility] Propofol (Diprivan) 1,000 mg in 100 mls @ 0 mls/hr IVCONT .Q0M [facility]; Protocol Last Titration: 12/21/21 15:37 Dose: 50 mcg/kg/min, 24.06 mls/hr Ondansetron HCl (Ondansetron Hcl 4 Mg/2 Ml Vial) 4 mg IVPUSH Q8H PRN PRN Reason: Nausea and Vomiting Pharmacy Consult (Consult Rx Perform Med Rec) 1 each MISCELLANE ONCE PRN PRN Reason: Consult order Sodium Chloride (0.9 % Sodium Chloride Flush 3 Ml Syringe) [facility] Last Admin: 12/21/21 08:37 Dose: Not Given Home Medications Medication Instructions Recorded Confirmed Last Taken Type baclofen 10 mg tablet 1 tab PO QPM 12/20/21 12/20/21 Unknown History Physical Exam Vital Signs: Vital Signs: Last Vital Signs Temp 97.2 F 12/21/21 14:06 Pulse 94 12/21/21 16:00 Resp 18 12/21/21 16:00 BP 135/63 12/21/21 14:06 Pulse Ox 98 12/21/21 16:00 O2 Del Method 12/21/21 16:00 O2 Flow Rate 2 12/21/21 14:06 FiO2 50 12/21/21 16:00 Oxygen Flow Rate 15 12/20/21 17:07 BMI result Body Mass Index 30.3 Const: Other: Patient is obtunded, responds to painful stimuli General: cooperative and no acute distress Eyes: General: appearance normal, both eyes and all related structures Neck: Other: Chronic contractures of neck to the right Resp: Other: unable to assess Cardio: Rate: regular rate Rhythm: regular rhythm GI: Palpation (GI): Soft to palpation Auscultation: normal bowel sounds Skin: General skin exam: no rashes or lesions noted Neuro: Other: unable to examas she is on vent on Propofol Extrem: General: Yes normal to inspection and Yes no pedal edema Results Labs CBC & Chem 7: 12/21/21 10:06 12/21/21 06:21 Labs: Short CBC 12/20/21 12/21/21 12/21/21 Range/Units 17:27 00:14 06:21 WBC 13.8 H 14.3 H 12.4 H (4.8-10.8) X10*3/uL Hgb 13.3 13.9 12.4 (12.0-16.0) g/dl Hct 44.1 47.2 H 42.2 (37.0-47.0) % Plt Count 261 227 228 (160-400) X10*3/uL 12/21/21 Range/Units 10:06 WBC 11.7 H (4.8-10.8) X10*3/uL Hgb 13.5 (12.0-16.0) g/dl Hct 45.5 (37.0-47.0) % Plt Count 239 (160-400) X10*3/uL BMP 12/20/21 12/21/21 18:26 06:21 Sodium 141 143 Potassium 4.0 3.8 Chloride 96 96 Carbon Dioxide 34 H 36 H BUN 15 13 Creatinine 0.70 0.67 Calcium 8.4 D 8.6 Cardiac Enzymes 12/20/21 12/20/21 Range/Units 17:27 18:26 Total Creatine Kinase Cancelled 498 H Liver Function 12/20/21 Range/Units 18:26 Total Bilirubin 0.2 (0.0-1.0) mg/dL AST 37 H D (5-31) U/L ALT 25 (0-31) U/L Alkaline Phosphatase 93 (39-117) U/L Albumin 3.6 (3.5-5.0) g/dL Urine 12/20/21 Range/Units 18:48 Urine Color Yellow Urine Appearance Clear Urine pH 5.0 (5.0-9.0) Ur Specific [place] >= 1.030 H (1.005-1.025) Urine Protein 100 (2+) H (Neg-Trace) mg/dL Urine Glucose (UA) 500 H (Negative) mg/dL Assessment and Plan (1) Acute respiratory failure with hypoxia: Status: Acute (2) Encephalopathy: Status: Acute (3) Seizure: Status: Acute Continue Keppra 1500mg IV bid. EEG in am Plan 66-year-old female with past medical history of CVA with left hemiparesis, history of seizures, presents to the hospital after seizure episode. #. Acute hypoxemic respiratory failure -likely due to hypoventilation in the setting of decreased mentation. CT angio negative for PE. #. Acute encephalopathy -likely epileptic and postictal confusion. Neurology consult pending. Also obtaining ABG -MRI brain pending #. Seizure disorder -apparently had a witnessed seizure. Given Versed and loaded with Keppra. Neurology consult pending. Order EEG and MRI brain to complete workup. #. DVT -noted on venous duplex. Does have chronic DVT but unclear if she was treated in the past. Will continue Lovenox therapeutic dose #. Essential hypertension -resume p.o. antihypertensives once mentation improves and patient is no longer NPO DVT prophylaxis: Therapeutic dose Lovenox Full code Diet: NPO Procedures Date of Service Date of Service: 12/21/21
--- NOTE | 2021-12-21 17:28 | P.PCNCC_ITS ---
Procedures Date of Service Date of Service: 12/21/21 Central Line Placement Left IJ: Central Line Comments: PROCEDURE: ?Insertion left internal jugular triple-lumen central venous catheter. INDICATION:? Venous access. ANESTHESIA: ?Propofol infusion. PROCEDURE: ?Vascular ultrasound was used to examine the left neck.? A large compressible internal jugular vein was noted, lateral to the carotid artery.? The site of the vein was marked. The left neck was widely prepped and draped in full sterile fashion.? Under US guidance, the left IJ vein was cannulated on the 1st pass of the 18 gauge thin wall needle, with return of dark, nonpulsatile blood.? The wire was threaded without incident.? The 16 cm x 7 [place] triple-lumen CVC was advanced into the vein up to the hub via the Seldinger technique without incident.? There was good blood return x3.? The catheter was sutured x2 and a Biopatch and dry sterile dressing were applied. Postop chest x-ray showed the line in good position with no pneumothorax the patient tolerated the procedure well with no complications. Dr. Hendrix provided bedside assist throughout the procedure. Consent for Procedure: Elective - informed consent obtained Time out performed: Yes Sterile Technique Used: Yes Patient placed on monitor/pulse ox: Yes prep: mask, gown and gloves Central line prep: Povidone-Iodine 1%, Chlorhexidine scrub and sterile drapes applied Ultrasound used for placement: Yes Central line lumen inserted: triple Post procedure: sutured in place, good blood return, all ports aspirated, flushed, capped and sterile dressing applied Post procedure x-ray: tip of catheter in good position Patient tolerated procedure: well and no complications Complications: none
[2021-12-21] MEDS: propofoL 1,000 MG/100 ML VIAL 24.06 MG IVCONT ×2 (18:38→22:41)
--- NOTE | 2021-12-21 18:47 | W.PM.CCHP ---
Procedures Date of Service Date of Service: 12/21/21 Arterial Line Arterial Line Comments: After sterile preparation and draping utilizing ultrasound guidance right femoral arterial line was placed without complication revealing systolic pressure of 100 correlating with the noninvasive blood pressure cuff with excellent waveform Consent: Elective - informed consent obtained Sterile Technique Used: Yes Time out performed: Yes Size (Gauge): 18 Technique used: direct puncture technique Post-Procedure: line sutured into place and dry sterile dressing placed Patient tolerated procedure: well and no complications Complications: none Site: right and femoral
[2021-12-21] MEDS: levETIRAcetam in NaCl (iso-os) 1,000 MG/100 ML PIGGYBACK 400 MG IV ×2 (18:49→23:24)
--- NOTE | 2021-12-21 18:49 | W.PM.CCCN ---
History of Present Illness Data of Consult Service Date: 12/21/21 Requesting physician: Dejon Linares Primary Care Provider: Unknown Physician HPI Reason for consult: Unresponsive/acute hypercapnic respiratory failure 66-year-old female apparently with a history of a brain malignancy treated with radiation and chemotherapy and a history of seizure disorder but I note from some of her previous admissions that she has had on again off again episodes of hypercapnic respiratory failure apparently came in with a witnessed seizure at home by the and here in the hospital was was given Versed Keppra level was drawn because that was supposed to have been the chronic medication and Keppra was administered empirically and apparently patient never woke up the 24 hours has since passed number while I was in with another patient I was asked to come down stairs for rapid response because again she was noted to be unresponsive by respiratory therapy to sounded the alarm and indeed blood gas did indicate that the pCO2 was markedly elevated with it with an acute on chronic hypercapnic respiratory failure picture patient was was intubated and then brought on over on ventilator and apparently was markedly hypotensive we will getting very Spore use readings from the automated blood pressure cuff a central line was placed in the left internal jugular vein without complication and we initiated Levophed now and CVP measurement was obtained at approximately 14 so clearly there was no room for the for volume at this point and because of a poorly compliant lungs and she had very high peak airway pressures on mandated volume so we switched to a pressure control mechanism and she was able to generate to 6 cc/kilos of tidal volume end-tidal CO2 is fell considerably from the VA of down to the 40s and then eventually down into the 30s and over time on the same settings her tidal volume started to slat pickler and therefore her minute ventilation and her end-tidal CO2 is secondarily dropped and she remained on propofol and of course her her Keppra and because of the at the very poorly palpable peripheral pulses both in the upper extremities and lower extremities an arterial line was placed and in the right femoral artery without complication with a good waveform systolic pressures were 100 on the Levophed and the patient maintained urine output and on the 1st blood drawing she had stable renal function numbers and sputum was obtained which was S somewhat hemorrhagic of a purulent-appearing in the g stain in and of course culture is pending as are blood cultures and any elevated lactate I think initially was on a circulatory basis precipitated by the the acute hypercapnic and hypoxic respiratory failure I do not believe this was a septic manifestation Review of Systems Review of Systems: Yes Unobtainable due to mental status PMFSH Past Medical History Medical History Brain cancer DVT (deep venous thrombosis) Essential hypertension HTN (hypertension) Seizure Stroke Torticollis, acquired Unspecified urinary incontinence Family History Family History Mother Diabetes Father Heart disease Family/Other Breast cancer Brain cancer Diabetes Surgical History Surgical History H/O craniotomy Social History Social History Household Members: Spouse Housing: Unknown / Unable to assess Unable to assess alcohol history related to: Unknown Alcohol intake: never Patient Tobacco Use Status: Never used Tobacco Second Hand Smoke Exposure: No Advance Directives Date on File: 02/12/20 service: No Current occupational status: unemployed and disabled Current occupation: right handed Meds Allergies Allergy/AdvReac Type Severity Reaction Status Date / Time apple [Apple] Allergy Severe THROAT Verified 08/30/21 13:20 SWELLING pollen extracts [POLLEN] Allergy Intermediate SNEEZING Verified 08/30/21 13:20 COUGHING ALOT kiwi AdvReac Intermediate VOMITING Verified 08/30/21 13:20 [Kiwi (Actinidia Chinensis)] avocado [Avocado] AdvReac Mild VOMITING Verified 08/30/21 13:20 Active Medications: Current Medications Acetaminophen (Acetaminophen 325 Mg Tablet) 650 mg PO Q6H PRN PRN Reason: Pain, Mild (Pain Scale 1-3) Albuterol Sulfate (Albuterol Sulfate 2.5 Mg/0.5 Ml Vial.Neb) 2.5 mg INHALE RQ4H ANTONIA Amlodipine Besylate (Amlodipine Besylate 5 Mg Tablet) 5 mg PO DAILY ANTONIA; Protocol Last Admin: 12/21/21 10:29 Dose: Not Given Baclofen (Baclofen 10 Mg Tablet) 10 mg PO BEDTIME ANTONIA Docusate Sodium (Docusate Sodium 100 Mg Capsule) 100 mg PO DAILY PRN PRN Reason: Constipation Enoxaparin Sodium (Enoxaparin Sodium 80 Mg/0.8 Ml Syringe) 80 mg SUBCUT Q12H ANTONIA Last Admin: 12/21/21 08:37 Dose: 80 mg Hydrochlorothiazide (Hydrochlorothiazide 25 Mg Tablet) 25 mg PO DAILY ANTONIA; Protocol Last Admin: 12/21/21 10:30 Dose: Not Given Lactated Ringer's (Lr) 1,000 mls @ 40 mls/hr IVCONT .Q24H ANTONIA Last Infusion: 12/21/21 14:40 Dose: 10 mls/hr Levetiracetam (Keppra) 1,000 mg in 100 mls @ 400 mls/hr IV TID ANTONIA Propofol (Diprivan) 1,000 mg in 100 mls @ 0 mls/hr IVCONT .Q0M ANTONIA; Protocol Last Admin: 12/21/21 18:38 Dose: 50 mcg/kg/min, 24.06 mls/hr Norepinephrine Bitartrate (Levophed) 8 mg in 250 mls @ 0 mls/hr IVCONT .Q0M ANTONIA; Protocol Last Titration: 12/21/21 17:07 Dose: 0.1 mcg/kg/min, 15.04 mls/hr Vancomycin HCl 1,000 mg/Vancomycin HCl 750 mg/ Sodium Chloride 535 mls @ 267.5 mls/hr IV ONCE ONE Stop: 12/21/21 21:59 Vancomycin HCl 750 mg/ Sodium (Chloride) 265 mls @ 265 mls/hr IV Q12H ANTONIA Ondansetron HCl (Ondansetron Hcl 4 Mg/2 Ml Vial) 4 mg IVPUSH Q8H PRN PRN Reason: Nausea and Vomiting Pharmacy Consult (Consult Rx Perform Med Rec) 1 each MISCELLANE ONCE PRN PRN Reason: Consult order Pharmacy Consult (Consult Rx Vancomycin Dosing) 1 each MISCELLANE DAILY PRN PRN Reason: Consult order Sodium Chloride (0.9 % Sodium Chloride Flush 3 Ml Syringe) 3 ml IVFLUSH QSHIFT [facility] Last Admin: 12/21/21 08:37 Dose: Not Given Home Medications Medication Instructions Recorded Confirmed Last Taken Type baclofen 10 mg tablet 1 tab PO QPM 12/20/21 12/20/21 Unknown History Physical Exam Vital Signs: Vital Signs: Last Vital Signs Temp 97.2 F 12/21/21 14:06 Pulse 95 12/21/21 18:00 Resp 16 12/21/21 18:00 BP 120/59 L 12/21/21 18:00 Pulse Ox 97 12/21/21 18:00 O2 Del Method 12/21/21 18:00 O2 Flow Rate 2 12/21/21 14:06 FiO2 50 12/21/21 18:00 Oxygen Flow Rate 15 12/20/21 17:07 BMI result Body Mass Index 30.3 So she remained unresponsive synchronized with the ventilator end-tidal CO2 is in in the 30s 6 cc/kilos tidal volume on the pressure control mechanism No adventitious breath Sounds abdomen was was soft with no organomegaly but we placed on OG suction Cardiac exam by bedside echo showing globally normal systolic wall motion of the left ventricle right ventricular function normal as well no primary valve or pericardial disease Periphery was cool but there was no livedo no acrocyanosis Results Labs CBC & Chem 7: 12/22/21 03:57 12/22/21 14:56 Labs: Short CBC 12/21/21 12/21/21 12/21/21 Range/Units 00:14 06:21 10:06 WBC 14.3 H 12.4 H 11.7 H (4.8-10.8) X10*3/uL Hgb 13.9 12.4 13.5 (12.0-16.0) g/dl Hct 47.2 H 42.2 45.5 (37.0-47.0) % Plt Count 227 228 239 (160-400) X10*3/uL BMP 12/20/21 12/21/21 18:26 06:21 Sodium 141 143 Potassium 4.0 3.8 Chloride 96 96 Carbon Dioxide 34 H 36 H BUN 15 13 Creatinine 0.70 0.67 Calcium 8.4 D 8.6 Cardiac Enzymes 12/20/21 Range/Units 18:26 Total Creatine Kinase 498 H (26-140) U/L Liver Function 12/20/21 Range/Units 18:26 Total Bilirubin 0.2 (0.0-1.0) mg/dL AST 37 H D (5-31) U/L ALT 25 (0-31) U/L Alkaline Phosphatase 93 (39-117) U/L Albumin 3.6 (3.5-5.0) g/dL Urine 12/20/21 Range/Units 18:48 Urine Color Yellow Urine Appearance Clear Urine pH 5.0 (5.0-9.0) Ur Specific Percy >= 1.030 H (1.005-1.025) Urine Protein 100 (2+) H (Neg-Trace) mg/dL Urine Glucose (UA) 500 H (Negative) mg/dL Assessment and Plan (1) Acute on chronic respiratory failure with hypercapnia: Status: Acute (2) Acute respiratory failure with hypoxia: Status: Acute (3) Encephalopathy: Status: Acute (4) Seizure: Status: Acute (5) AMS (altered mental status): Status: Acute (6) DVT (deep venous thrombosis): Status: Acute (7) Essential hypertension: Status: Acute (8) Torticollis, acquired: Status: Acute (9) COVID-19: Status: Acute (10) UTI (urinary tract infection), bacterial: Status: Acute (11) Brain cancer: Status: Acute (12) TERI on CPAP: Status: Acute Plan So she remained unresponsive for 24 hours after witnessed seizure activity and 1st question always raised and I think retrospectively should have been within the 1st 1/2 hour of non awakening for the been to rule out nonconvulsive status epilepticus or some other metabolic count ability for the mental status and ultimately it came to light that she was markedly hypercapnic and so at this point an EEG needs to be done separate out what represents encephalopathy versus prerenal persistent nonconvulsive status epilepticus will continue with the Keppra treatment and with and in addition will be on propofol and p.r.n. benzodiazepines and of course ventilator management
--- NOTE | 2021-12-21 19:33 | PC.NURSE ---
PT brought down emergently to ICU due to Rapid response being called on patient. On arrival patient was already intubated and restless. Propofol gtt was initiated per MD. Deep suction sputum culture obtained, pending result. TLC placed in the [facility] to obtain access to monitor hemodynamics and to infuse caustic medications. Patient while connected to room monitor was unable to be obtained blood pressure. Manual blood pressure was taken which revealed a systolic of less the 60, Per MD statement. Levophed gtt started per MD, see EMAR. CVP line initiated per MD request. Arterial line placed in Right Femoral Artery by MD and [employer]. Family updated on health status of patient by RN.
[2021-12-21] MEDS: Albuterol Sulfate 2.5 MG/0.5 ML VIAL.NEB INHALE (19:43)
[2021-12-21] MEDS: vancomycin HCL 1,000 MG, vancomycin HCL 750 MG in 0.9 % Sodium Chloride 500 ML 267.5 MG IV (20:23)
[2021-12-22] VITALS (41 sets, daily range): BP systolic 88–161; BP diastolic 45–101; PULSE 74–130; RESP 12–17; TEMP 34.1–38.3; O2SAT 96–100; BMI 32.0
--- NOTE | 2021-12-22 | EEG_ITS ---
Waking background activity consists of a diffuse 2-3 hertz [id number] voltage delta, seen over both hemispheres, intermixed with bitemporal muscle artifact. No paroxysmal discharges are seen. Photic stimulation and hyperventilation were omitted. IMPRESSION: This is an abnormal EEG due to severe diffuse background slowing, consistent with a diffuse encephalopathic process. No epileptiform discharges are seen. MD BALJIT Zepeda/DAMIAN / [id number]
[2021-12-22] MEDS: Albuterol Sulfate 2.5 MG/0.5 ML VIAL.NEB INHALE ×7 (00:10→23:41)
[2021-12-22] MEDS: 0.9 % Sodium Chloride Flush 3 ML SYRINGE IVFLUSH ×4 (00:16→23:46)
[2021-12-22] MEDS: propofoL 1,000 MG/100 ML VIAL 24.06 MG IVCONT ×2 (03:01→05:29)
[2021-12-22 04:04] LABS: VBG Base Excess 16.6 mmol/L; VBG HCO3 37 mmol/L (22-26); VBG pCO2 32 mmHg; VBG pH 7.67 (7.32-7.43); VBG pO2 45 mmHg
[2021-12-22 04:07] LABS: MANUAL DIFF FLAG NO
[2021-12-22 04:18] LABS: Basophils Percent Auto 0.3 % (0-2); Hemoglobin 11.4 g/dl (12.0-16.0); Imm Gran Abs Auto 0.06 X10*3/uL (0.00-0.03); Imm Gran Pct Auto 0.5 % (0.0-0.4); Lymphocytes Absolute Auto 1.1 X10*3/uL (1.2-4.9); Lymphocytes Percent Auto 8.7 % (20-40); Mean Corpuscular Hemoglobin 26.3 pg (27.0-33.0); Mean Corpuscular Volume 87.6 fL (80.0-98.0); Mean Platelet Volume 10.8 fL (9.4-12.3); Monocytes Absolute Auto 1.1 X10*3/uL (0.1-1.2); Monocytes Percent Auto 9.2 % (2-11); Neutrophils Absolute Auto 9.8 x10*3/uL (2.0-8.3); Neutrophils Percent Auto 81.3 % (45-73); Platelet Count 228 X10*3/uL (160-400); Red Blood Count 4.34 X10*6/uL (4.20-5.50); Red Cell Distribution Width 13.1 % (11.0-16.0); White Blood Count 12.1 X10*3/uL (4.8-10.8)
[2021-12-22 04:39] LABS: Anion Gap 19 (12-20); Blood Urea Nitrogen 16 mg/dL (9-16); Calcium 8.2 mg/dL (8.4-10.2); Carbon Dioxide 29 mmol/L (22-29); Chloride 96 mmol/L (96-108); Creatinine Clr Calc Pharmacy 72.6; Estimated Glomerular Filt Rate > 60; Glucose Random 170 mg/dL (60-115); Sodium 141 mmol/L (135-145)
[2021-12-22 04:45] LABS: Alanine Aminotransferase 18 U/L (0-31); Alkaline Phosphatase 66 U/L (39-117); Anion Gap 14 (12-20); Aspartate Amino Transferase 25 U/L (5-31); Bilirubin Total 0.8 mg/dL (0.0-1.0); Blood Urea Nitrogen 16 mg/dL (9-16); Calcium 8.3 mg/dL (8.4-10.2); Carbon Dioxide 33 mmol/L (22-29); Chloride 97 mmol/L (96-108); Creatinine Clr Calc Pharmacy 72.6; Estimated Glomerular Filt Rate > 60; Glucose Random 169 mg/dL (60-115); Magnesium 1.7 mg/dL (1.6-2.6); Sodium 141 mmol/L (135-145); Total Protein 5.5 g/dL (6.5-8.0)
[2021-12-22 04:53] LABS: Lactic Acid 2.2 mmol/L (0.5-2.0)
[2021-12-22] MEDS: Lactated Ringers 1,000 ML 100 ML IVCONT (05:39)
[2021-12-22] MEDS: KCl 40 mEq in 5% Dex/0.45% Sod 40 MEQ/1,000 ML IV.SOLN 80 MEQ IVCONT ×2 (06:11→19:07)
[2021-12-22 06:19] LABS: Venous Blood Gas Refer to POC result
[2021-12-22] MEDS: Potassium Chloride Packet 20 MEQ PACKET 40 MEQ PO (06:30)
[2021-12-22 06:41] LABS: Reflex Lactate? Lactic Acid Added
[2021-12-22 07:45] LABS: INTERNATIONAL NORM RATIO 1.3 (0.9-1.1); Prothrombin Time 15.3 SEC (10.0-13.1)
[2021-12-22 07:54] LABS: ~Lactic Acid-LAB USE ONLY 2.5 mmol/L (0.5-2.0)
[2021-12-22] MEDS: levETIRAcetam in NaCl (iso-os) 1,000 MG/100 ML PIGGYBACK 400 MG IV ×3 (08:22→20:54)
[2021-12-22] MEDS: vancomycin HCL 750 MG in 0.9 % Sodium Chloride 250 ML 265 MG IV ×2 (08:33→20:53)
[2021-12-22] MEDS: Enoxaparin Sodium 80 MG/0.8 ML SYRINGE SUBCUT ×2 (08:34→20:53)
[2021-12-22 09:36] LABS: Reflex Lactate? 2 Y
[2021-12-22] MEDS: dexmedeTOMIDidine HCL/NS 400 MCG/100 ML INFUS..BTL IVCONT (09:57)
--- NOTE | 2021-12-22 10:59 | P.CDIC_ITS ---
CDI Concurrent Query Documentation Clarification: PHYSICIAN'S DOCUMENTATION REQUEST Date of Query: 12/22/21 1059 Patient Name: Juani Ferro Admit Date: 12/20/21 Dear Doctor, A review of the medical record indicates additional documentation may be needed. Please review below and update the documentation accordingly. Clinical Indicators: On 12/21/21 the provider indicated a diagnosis of acute hypoxic respiratory failure. Is there an additional diagnosis that correlates with the findings below: Risk Factors/Clinical Indicators/Treatments Per event note on 12/21: Hypercapnia explains the patient's hypoxemia and acute metabolic encephalopathy LABS: ABG on 12/21: pH - 7.23 pCO2 - 125 pO2 - 41 HCO3 - 53 Recognized standard criteria for respiratory failure includes: (Source: [facility] Hospitalist Dec 2012) Symptoms: ? Tachypnea, SOB, dyspnea ? Pallor or cyanosis ? Anxiety or restlessness ? Use of accessory muscles ? Retractions (grunting in newborns) ? Unable to speak in complete sentences Intubation is not required Clarify which of the following accurately represents the patient's respiratory status: * Acute hypoxic and hypercapnic respiratory failure * Other (please specify) * Unable to determine Use of terms such as suspected, likely, concern for, or probable (associated with a specific diagnosis that is being evaluated, monitored, or treated as if it exists) are acceptable and can be coded in the inpatient setting, when documented at the time of discharge. Thank you, Karen Amin MS, RN, CCRN Extension: [phone] Please use your independent medical judgment in providing your response. THIS QUERY IS PART OF THE PERMANENT MEDICAL RECORD
--- NOTE | 2021-12-22 11:21 | P.CDIC_ITS ---
CDI Concurrent Query Documentation Clarification: PHYSICIAN'S DOCUMENTATION REQUEST Date of Query: 12/22/21 1122 Patient Name: Juani Ferro Admit Date: 12/20/21 Dear Doctor, A review of the medical record indicates additional documentation may be needed. Please review below and update the documentation accordingly. Clinical Indicators: On 12/21/21 the provider indicated a diagnosis of a DVT. Is there further clarification/specificity that correlates with the findings below: Risk Factors/Clinical Indicators/Treatments Per provider note on 12/21: DVT noted on venous duplex.? Does have chronic DVT but unclear if she was treated in the past Per venous duplex on 12/20: Very small amount of echogenic, noncompressible nonocclusive thrombus in the left popliteal vein. This may represent chronic thrombus related to prior DVT. Based on the above, could you clarify in the Progress Notes the appropriate diagnosis, if significant, that supports the above abnormalities and additional evaluation, monitoring, and/or treatment rendered: * Acute on chronic DVT (please specify site) * Chronic DVT (please specify site) * Other (please specify) * Unable to determine Use of terms such as suspected, likely, concern for, or probable (associated with a specific diagnosis that is being evaluated, monitored, or treated as if it exists) are acceptable and can be coded in the inpatient setting, when documented at the time of discharge. Thank you, Karen Amin MS, RN, CCRN Extension: [phone] Please use your independent medical judgment in providing your response. THIS QUERY IS PART OF THE PERMANENT MEDICAL RECORD
--- NOTE | 2021-12-22 11:31 | P.CDIC_ITS ---
CDI Concurrent Query Documentation Clarification: PHYSICIAN'S DOCUMENTATION REQUEST Date of Query: 12/22/21 1131 Patient Name: Juani Ferro Admit Date: 12/20/21 Dear Doctor, A review of the medical record indicates additional documentation may be needed. Please review below and update the documentation accordingly. Clinical Indicators: A diagnosis of seizure(s) was documented in the provider H&P on 12/20. Is there further clarification/specificity that correlates with the findings below: Risk Factors/Clinical Indicators/Treatments -PMH seizure disorder -Per neurology consult on 12/21: Her reports that this morning? 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, and chronically has not to the left side If possible, please further clarify in the Progress Notes, the type/etiology, acuity and control status of seizure(s): Specify type/etiology: * Idiopathic * Febrile (specify simple or complex) * Due to stroke * Post-traumatic * Due to external cause (specify if drug, alcohol, stress, etc.) * Absence * Generalized epilepsy (grand mal, myoclonic, atonic, clonic, tonic-clonic, etc.) * Focal or partial (specify simple or complex) * Petit mal * Recurrent - further specify type/etiology * Other * Unable to determine Specify acuity: * With status epilepticus * Without status epilepticus * Other * Unable to determine Specify control status: * Well controlled * Intractable * Pharmacoresistant * Poorly controlled * Refractory * Treatment resistant * Other * Unable to determine Use of terms such as suspected, likely, concern for, or probable (associated with a specific diagnosis that is being evaluated, monitored, or treated as if it exists) are acceptable and can be coded in the inpatient setting, when documented at the time of discharge. Thank you, Karen Amin MS, RN, CCRN Extension: [phone] Please use your independent medical judgment in providing your response. THIS QUERY IS PART OF THE PERMANENT MEDICAL RECORD
--- NOTE | 2021-12-22 11:58 | MHC.CM.PN ---
PATIENT NEW TRANSFER TO ICU, CM WILL CONTINUE TO FOLLOW FOR D/D PLANNING NEEDS.
[2021-12-22 15:07] LABS: VBG Base Excess 12.1 mmol/L; VBG HCO3 34 mmol/L (22-26); VBG pCO2 37 mmHg; VBG pH 7.57 (7.32-7.43); VBG pO2 55 mmHg
[2021-12-22 15:08] LABS: Venous Blood Gas Refer to POC result
[2021-12-22 15:25] LABS: Anion Gap 9 (12-20); Blood Urea Nitrogen 14 mg/dL (9-16); Carbon Dioxide 33 mmol/L (22-29); Chloride 102 mmol/L (96-108); Creatinine Clr Calc Pharmacy 79.8; Estimated Glomerular Filt Rate > 60; Glucose Random 210 mg/dL (60-115); Potassium 3.2 mmol/L (3.3-5.1); Sodium 141 mmol/L (135-145)
[2021-12-22] MEDS: Potassium Chloride Packet 20 MEQ PACKET PO (16:02)
--- NOTE | 2021-12-22 18:06 | PC.NURSE ---
Patient assessment completed, see shift assessment. Sedation vacation initiated at 0713. Patient began to arouse throughout day opening eyes to stimuli but was never able to follow commands or track RN. Patient began to fight vent, BP began to rise. Levophed titrated down until eventually being paused. Precedex drip started per MD order, see EMAR. Precedex tolerated well with good effect. Levophed eventually required to be restarted to maintain proper SBP. See EMAR. EEG preformed bedside, results showing severe slowing. See report for complete results. Patient and family updated on health status, bathed, reposition Q2hr, routine oral care preformed.
[2021-12-22] MEDS: dexmedeTOMIDidine HCL/NS 400 MCG/100 ML INFUS..BTL 25.41 MCG IVCONT (23:30)
[2021-12-23] VITALS (38 sets, daily range): BP systolic 87–171; BP diastolic 51–92; PULSE 54–92; RESP 14–25; TEMP 34.5–36.6; O2SAT 89–99; BMI 31.9
[2021-12-23] MEDS: dexmedeTOMIDidine HCL/NS 400 MCG/100 ML INFUS..BTL 25.41 MCG IVCONT ×4 (02:38→23:26)
[2021-12-23] MEDS: Albuterol Sulfate 2.5 MG/0.5 ML VIAL.NEB INHALE ×5 (04:01→20:10)
[2021-12-23] MEDS: dexmedeTOMIDidine HCL/NS 400 MCG/100 ML INFUS..BTL 31.76 MCG IVCONT (05:02)
--- NOTE | 2021-12-23 05:09 | PM.CCPN ---
Subjective Subjective Date of Service: 12/22/21 Interval History: 66-year-old female with history of a brain malignancy treated with chemotherapy and radiation and also known seizure disorder supposedly on Keppra with a Keppra level pending but presented with witnessed seizure at home by the never awaken for 24 hours and this is somebody known to have chronic hypercapnic respiratory failure with obstructive sleep apnea supposedly on CPAP at not compliant at home and was noted to be persistently hypercapnic and and was intubated and remains on the ventilator at this point doing very well on pressure control we and the inspiratory pressure is being weaned tidal volumes continue to improve in end-tidal CO2 and then eventually pCO2 came down to dramatically into the 30s so we had a significant metabolic alkalosis with a pH of 7.67 so we reduced the respiratory rate significantly as well as the inspiratory pressure support pH came down to 7.57 which was more comfortable and we stop the propofol the patient began to awaken moving both sides EEG was done which apparently has shown significant persisting encephalopathy so the etiology of course could be the the no persistent intra intracranial hypertension from cerebral edema related to the prolonged hypercapnia distal all shake out in the next couple of days if she continues to awaken and restored her mental status but there was no status epilepticus With purulence sputum and a questionable infiltrate in the left lower lobe I can not rule out the possibility when her airway was dysfunctional and she encephalopathic that it could have been an aspiration problem so she is being treated for such with vancomycin and meropenem Critical Care Time (minutes): 60 Physical Exam Vital Signs: Vital Signs: Last Vital Signs Temp 97.1 F 12/23/21 04:00 Pulse 62 12/23/21 04:03 Resp 14 12/23/21 04:03 BP 156/64 H 12/23/21 04:00 Pulse Ox 97 12/23/21 04:00 O2 Del Method 12/23/21 04:00 O2 Flow Rate 2 12/21/21 14:06 FiO2 30 12/23/21 04:03 Oxygen Flow Rate 15 12/20/21 17:07 BMI result Body Mass Index 32.0 Blood pressure is improving as we continue to wean the Levophed and slowly her CVP is is diminishing from 14 down to 11 and this is happening because she is auto diuresing related to the respiratory support and and improvement in biventricular function On awakening without cognitive function but moving all 4 extremities Pulses increasingly palpable with no acrocyanosis Abdomen benign with no organomegaly Cardiac exam with normal LV and RV function by echo Objective Data Labs CBC & Chem 7: 12/22/21 03:57 12/22/21 14:56 Labs: Laboratory Results - last 24 hr 12/22/21 12/22/21 12/22/21 07:32 07:32 09:50 PT 15.3 H INR 1.3 H VBG pH VBG pCO2 VBG pO2 VBG HCO3 VBG O2 Saturation VBG Base Excess Sodium Potassium Chloride Carbon Dioxide Anion Gap BUN Creatinine Estim Creat Clear Calc Estimated GFR Random Glucose Lactic Acid F/U @ 2Hr 2.5 H* Lactic Acid F/U @ 4Hr 2.0 Calcium 12/22/21 12/22/21 14:56 15:02 PT INR VBG pH 7.57 H VBG pCO2 37 VBG pO2 55 VBG HCO3 34 H VBG O2 Saturation 91.0 VBG Base Excess 12.1 Sodium 141 Potassium 3.2 L Chloride 102 Carbon Dioxide 33 H Anion Gap 9 L BUN 14 Creatinine 0.72 Estim Creat Clear Calc 79.8 Estimated GFR > 60 Random Glucose 210 H Lactic Acid F/U @ 2Hr Lactic Acid F/U @ 4Hr Calcium 8.0 L Microbiology Microbiology Results: Microbiology 12/20/21 18:26 Blood - Venous Blood Culture - Preliminary No growth after 48 hours. 12/20/21 17:27 Blood - Venous Blood Culture - Preliminary No growth after 48 hours. 12/21/21 Unknown Sputum - Suctioned Gram Stain - Final 12/21/21 Unknown Sputum - Suctioned Sputum Culture - Preliminary Streptococcus species Progress Note: A&P Assessment and plan (1) Acute on chronic respiratory failure with hypercapnia: Status: Acute (2) Acute respiratory failure with hypoxia: Status: Acute (3) Encephalopathy: Status: Acute (4) Seizure: Status: Acute (5) AMS (altered mental status): Status: Acute (6) Hypoxia: Status: Acute (7) DVT (deep venous thrombosis): Status: Acute (8) Essential hypertension: Status: Acute (9) Torticollis, acquired: Status: Acute (10) Metabolic alkalosis with respiratory acidosis: Status: Acute (11) COVID-19: Status: Acute (12) UTI (urinary tract infection), bacterial: Status: Acute (13) Stroke: Status: Acute (14) Brain cancer: Status: Acute (15) TEIR on CPAP: Status: Acute Plan So despite the initial circulatory in adequacy in and hypotension she never developed acute acute renal failure that remain preserved and he lactic acidosis disappeared purely on the basis of improved LV and RV function with restoring respiratory support eliminating marked hypercapnia in and of course EEG demonstrating severe encephalopathy but no evidence of status epilepticus I still have hope because I am sure she has got some degree of persistent cerebral edema from the hypercapnia and that should alleviate Quality Stroke Does the patient have a stroke diagnosis?: No VTE Prior VTE?: Yes VTE Risk Level:: Medical - moderate - high VTE Device Contraindication: Treatment Not Indicated VTE Drug Contraindication: N/A - Med Ordered
[2021-12-23 05:15] LABS: VBG Base Excess 6.7 mmol/L; VBG HCO3 29 mmol/L (22-26); VBG pCO2 33 mmHg; VBG pH 7.54 (7.32-7.43); VBG pO2 43 mmHg
[2021-12-23 05:16] LABS: Venous Blood Gas Refer to POC result
[2021-12-23 05:29] LABS: MANUAL DIFF FLAG NO
[2021-12-23 05:32] LABS: Basophils Percent Auto 0.2 % (0-2); Eosinophils Absolute Auto 0.1 X10*3/uL (0.0-0.4); Eosinophils Percent Auto 0.5 % (0-4); Hematocrit 33.6 % (37.0-47.0); Hemoglobin 10.3 g/dl (12.0-16.0); Imm Gran Abs Auto 0.09 X10*3/uL (0.00-0.03); Imm Gran Pct Auto 0.7 % (0.0-0.4); Lymphocytes Absolute Auto 1.8 X10*3/uL (1.2-4.9); Lymphocytes Percent Auto 14.4 % (20-40); Mean Corpuscular HGB Conc 30.7 g/dl (31.0-35.0); Mean Corpuscular Hemoglobin 26.3 pg (27.0-33.0); Mean Corpuscular Volume 85.9 fL (80.0-98.0); Monocytes Absolute Auto 0.7 X10*3/uL (0.1-1.2); Monocytes Percent Auto 5.9 % (2-11); Neutrophils Absolute Auto 9.6 x10*3/uL (2.0-8.3); Neutrophils Percent Auto 78.3 % (45-73); Platelet Count 191 X10*3/uL (160-400); Red Blood Count 3.91 X10*6/uL (4.20-5.50); Red Cell Distribution Width 13.6 % (11.0-16.0); White Blood Count 12.2 X10*3/uL (4.8-10.8)
[2021-12-23 05:52] LABS: Anion Gap 11 (12-20); Blood Urea Nitrogen 10 mg/dL (9-16); Calcium 7.8 mg/dL (8.4-10.2); Carbon Dioxide 27 mmol/L (22-29); Chloride 108 mmol/L (96-108); Creatinine Clr Calc Pharmacy 95.6; Estimated Glomerular Filt Rate > 60; Glucose Random 174 mg/dL (60-115); Potassium 3.4 mmol/L (3.3-5.1); Sodium 143 mmol/L (135-145)
[2021-12-23 06:09] LABS: Vancomycin Trough 8.2 mcg/mL (10.0-20.0)
[2021-12-23] MEDS: KCl 40 mEq in 5% Dex/0.45% Sod 40 MEQ/1,000 ML IV.SOLN 80 MEQ IVCONT (06:21)
--- NOTE | 2021-12-23 07:05 | HE.PHANOTE ---
RE MARY TROUGH RETURNED @8.2. INCREASING DOSE TO 1000MG Q12H; SUSPECTED AUC 539; TROUGH 18.9 MAIA
[2021-12-23] MEDS: Potassium Chloride Packet 20 MEQ PACKET PO (07:47)
[2021-12-23] MEDS: 0.9 % Sodium Chloride Flush 3 ML SYRINGE IVFLUSH ×2 (07:48→15:59)
[2021-12-23] MEDS: Enoxaparin Sodium 80 MG/0.8 ML SYRINGE SUBCUT ×2 (07:48→20:01)
[2021-12-23] MEDS: vancomycin HCL 1,000 MG in 0.9 % Sodium Chloride 250 ML 270 MG IV (07:49)
[2021-12-23] MEDS: levETIRAcetam in NaCl (iso-os) 1,000 MG/100 ML PIGGYBACK 400 MG IV ×3 (08:02→20:00)
--- NOTE | 2021-12-23 11:27 | MHC.CM.PN ---
Pt continues care in ICU: vented but will begin sedation cessation to better assess return of mental status. Pt from home with family but may require STR. Broad referrals placed in anticipation. CM to follow
--- NOTE | 2021-12-23 11:38 | P.PNCC_ITS ---
Subjective Subjective Date of Service: 12/23/21 Interval History: 66-year-old female with prior history of of brain tumor treated with radiation and chemotherapy and a seizure disorder on Keppra and presented with a witnessed seizure by by the at home and then given besides Keppra in the hospital also Versed IV and for 24 hours it was not noted that the patient did not really awaken raising questions about nonconvulsive status epilepticus versus some other metabolic issue and when the rapid response was called 24 hours after unresponsiveness persisted was noted that the pCO2 was 120 and that she does have a history of chronic hypercapnic respiratory failure for which there is a positive-pressure device in her home which the says she is not compliant with So she was intubated brought to the ICU and she was hypotensive and all peripheral pulses nearly impalpable arterial line had to be placed via the right femoral artery which went without complication along with central line and the central venous pressure was 14 probably reflecting right heart dysfunction from the respiratory failure and and she was sedated maintained on the ventilator initial arterial pressure was low requiring Levophed support and we got her pressures up promptly over 100 systolic sustaining urine output and her GFR and she has been off propofol for over 24 hours EEG yesterday persistently encephalopathic but no epileptiform foci and today she is gradually real wakening in following commands and she is now on a pressure support trial to begin the weaning process Sputum culture indeed grew out Staph strep pneumonia sensitive to ceftriaxone so will stop the vancomycin and the meropenem and switch to ceftriaxone and that may have been the precipitating factor resulting in the acute respiratory failure Critical Care Time (minutes): 45 Physical Exam Vital Signs: Vital Signs: Last Vital Signs Temp 97.1 F 12/23/21 08:00 Pulse 84 12/23/21 11:00 Resp 25 H 12/23/21 11:00 BP 99/55 L 12/23/21 11:00 Pulse Ox 89 L 12/23/21 11:00 O2 Del Method 12/23/21 11:00 O2 Flow Rate 2 12/21/21 14:06 FiO2 30 12/23/21 11:00 Oxygen Flow Rate 15 12/20/21 17:07 BMI result Body Mass Index 31.9 Lethargic but responsive and following commands and currently on pressure support trial on the ventilator Lungs without adventitious sounds and no accessory muscle use Bedside echo with class 1 LV function Abdomen soft with no organomegaly and tolerating feedings Objective Data Labs CBC & Chem 7: 12/23/21 05:24 12/23/21 05:24 Labs: Laboratory Results - last 24 hr 12/22/21 12/22/21 12/23/21 14:56 15:02 05:09 WBC RBC Hgb Hct MCV MCH MCHC RDW Plt Count MPV Immature Gran % (Auto) Neut % (Auto) Lymph % (Auto) [place] % (Auto) Eos % (Auto) Baso % (Auto) Lymph # (Auto) [place] # (Auto) Eos # (Auto) Baso # (Auto) Abs Immat Gran (auto) Absolute Neuts (auto) Absolute Nucleated RBC Nucleated RBC % (auto) VBG pH 7.57 H 7.54 H VBG pCO2 37 33 VBG pO2 55 43 VBG HCO3 34 H 29 H VBG O2 Saturation 91.0 78.0 VBG Base Excess 12.1 6.7 Sodium 141 Potassium 3.2 L Chloride 102 Carbon Dioxide 33 H Anion Gap 9 L BUN 14 Creatinine 0.72 Estim Creat Clear Calc 79.8 Estimated GFR > 60 Random Glucose 210 H Calcium 8.0 L Magnesium Vancomycin Trough 12/23/21 12/23/21 12/23/21 05:24 05:24 05:24 WBC 12.2 H RBC 3.91 L Hgb 10.3 L Hct 33.6 L MCV 85.9 MCH 26.3 L MCHC 30.7 L RDW 13.6 Plt Count 191 MPV 10.0 Immature Gran % (Auto) 0.7 H Neut % (Auto) 78.3 H Lymph % (Auto) 14.4 L [place] % (Auto) 5.9 Eos % (Auto) 0.5 Baso % (Auto) 0.2 Lymph # (Auto) 1.8 [place] # (Auto) 0.7 Eos # (Auto) 0.1 Baso # (Auto) 0.0 Abs Immat Gran (auto) 0.09 H Absolute Neuts (auto) 9.6 H Absolute Nucleated RBC 0.000 Nucleated RBC % (auto) 0.0 VBG pH VBG pCO2 VBG pO2 VBG HCO3 VBG O2 Saturation VBG Base Excess Sodium 143 Potassium 3.4 Chloride 108 Carbon Dioxide 27 Anion Gap 11 L BUN 10 Creatinine 0.60 Estim Creat Clear Calc 95.6 Estimated GFR > 60 Random Glucose 174 H Calcium 7.8 L Magnesium 2.0 Vancomycin Trough 8.2 L Microbiology Microbiology Results: Microbiology 12/21/21 Unknown Sputum - Suctioned Gram Stain - Final 12/21/21 Unknown Sputum - Suctioned Sputum Culture - Final Streptococcus pneumoniae 12/20/21 18:26 Blood - Venous Blood Culture - Preliminary No growth after 48 hours. 12/20/21 17:27 Blood - Venous Blood Culture - Preliminary No growth after 48 hours. Progress Note: A&P Assessment and plan (1) Metabolic alkalosis with respiratory acidosis: Status: Acute (2) Acute on chronic respiratory failure with hypercapnia: Status: Acute (3) Acute respiratory failure with hypoxia: Status: Acute (4) Encephalopathy: Status: Acute (5) Seizure: Status: Acute (6) AMS (altered mental status): Status: Acute (7) Hypoxia: Status: Acute (8) Pneumococcal pneumonia: Status: Acute (9) DVT (deep venous thrombosis): Status: Acute (10) Essential hypertension: Status: Acute (11) DVT (deep venous thrombosis): Status: Acute (12) Encounter for palliative care: Status: Acute (13) Sebaceous cyst of axilla: Status: Acute (14) Torticollis, acquired: Status: Acute (15) Urinary incontinence, functional: Status: Acute (16) Alkalosis: Status: Acute (17) COVID-19: Status: Acute (18) PVC (premature ventricular contraction): Status: Acute (19) PAC (premature atrial contraction): Status: Acute (20) UTI (urinary tract infection), bacterial: Status: Acute (21) Bladder incontinence: Status: Acute (22) Abscess: Status: Acute (23) Symptomatic PVCs: Status: Acute (24) Physical exam, annual: Status: Acute (25) Stroke: Status: Acute (26) Brain cancer: Status: Acute (27) Right ankle pain: Status: Acute (28) Fracture of distal end of fibula: Status: Acute (29) Closed fracture of fibula with routine healing: Status: Acute (30) TERI on CPAP: Status: Acute (31) Insomnia: Status: Acute Plan At this point we are going to be using ceftriaxone and and if we fail this afternoon to wean from the ventilator will recent date hopefully with dexmedetomidine and try again in the morning Quality Stroke Does the patient have a stroke diagnosis?: No VTE Prior VTE?: Yes VTE Risk Level:: Medical - moderate - high VTE Device Contraindication: Treatment Not Indicated VTE Drug Contraindication: N/A - Med Ordered
[2021-12-23] MEDS: Furosemide 40 MG/4 ML VIAL IVPUSH (12:13)
[2021-12-23] MEDS: cefTRIAXone sodium 1 GM in 0.9 % Sodium Chloride 50 ML IV (12:30)
[2021-12-23] MEDS: dexmedeTOMIDidine HCL/NS 400 MCG/100 ML INFUS..BTL 21.18 MCG IVCONT (12:30)
[2021-12-23] MEDS: Potassium Chloride Packet 20 MEQ PACKET 40 MEQ PO (12:50)
--- NOTE | 2021-12-23 15:25 | PC.NURSE ---
SEDATION VACATION STARTED AT 0745 REMAINED ON PC RATE 14 16/5 ON 30% UNTIL 1130 WHEN CHANGED OVER TO PS 15/5 ON 30% PATIENT WAS ABLE TO NOD YES TO HER NAME, WIGGLE TOES AND SQUEEZE HANDS. PATIENT UNABLE TO OPEN EYES OR TRACK. AT 1145 PATIENT BEGAN TO COUGH AND NOTED TO BE COUGHING UP PINK FROTH IN ETT, RT AND MD CALLED BEDSIDE PATIENT CHANGED BACK TO PC RATE 14 16/5 ON 30% CVP AT START OF SHIFT = 8, AT 1200 = 12 - MD NOTIFIED LASIX 40 MG IVP ADMINISTERED PER MD ORDER LEVOPHED RESTARTED PER MD AND TITRATED ORDERED - SEE EMAR MAXWELL REMOVED AT 1200 BY MD DUE TO DAMPENED PLETH AND INACCURATE READINGS IV FLUIDS TURNED OFF PER MD PATIENT INCONTINENT OF COPIOUS AMOUNTS OF UNGER, LIQUID STOOL PATIENT BECAME EXTREMELY RESTLESS, ANXIOUS AND REACHING FOR ETT DURING BATH - SEDATION RESTARTED PER MD AT 1230, SEE EMAR
[2021-12-23 20:02] LABS: Levetiracetam Keppra 75.5 mcg/mL (6.0-46.0)
[2021-12-24] VITALS (30 sets, daily range): BP systolic 94–157; BP diastolic 49–72; PULSE 48–80; RESP 13–23; TEMP 34.5–36.8; O2SAT 92–99; BMI 27.3
[2021-12-24] MEDS: cefTRIAXone sodium 1 GM in 0.9 % Sodium Chloride 50 ML IV ×3 (00:26→23:19)
[2021-12-24] MEDS: 0.9 % Sodium Chloride Flush 3 ML SYRINGE IVFLUSH ×2 (00:30→23:19)
[2021-12-24] MEDS: dexmedeTOMIDidine HCL/NS 400 MCG/100 ML INFUS..BTL 25.41 MCG IVCONT (02:53)
[2021-12-24] MEDS: dexmedeTOMIDidine HCL/NS 400 MCG/100 ML INFUS..BTL 31.76 MCG IVCONT (05:35)
[2021-12-24] MEDS: levETIRAcetam in NaCl (iso-os) 1,000 MG/100 ML PIGGYBACK 400 MG IV ×3 (07:59→21:48)
[2021-12-24] MEDS: Enoxaparin Sodium 80 MG/0.8 ML SYRINGE SUBCUT ×2 (07:59→21:00)
[2021-12-24 08:52] LABS: MANUAL DIFF FLAG NO
[2021-12-24 08:54] LABS: Basophils Percent Auto 0.4 % (0-2); Eosinophils Absolute Auto 0.2 X10*3/uL (0.0-0.4); Eosinophils Percent Auto 1.8 % (0-4); Hematocrit 32.6 % (37.0-47.0); Hemoglobin 10.2 g/dl (12.0-16.0); Imm Gran Abs Auto 0.07 X10*3/uL (0.00-0.03); Imm Gran Pct Auto 0.7 % (0.0-0.4); Lymphocytes Absolute Auto 1.6 X10*3/uL (1.2-4.9); Lymphocytes Percent Auto 16.1 % (20-40); Mean Corpuscular HGB Conc 31.3 g/dl (31.0-35.0); Mean Corpuscular Hemoglobin 26.6 pg (27.0-33.0); Mean Corpuscular Volume 85.1 fL (80.0-98.0); Mean Platelet Volume 10.5 fL (9.4-12.3); Monocytes Absolute Auto 0.5 X10*3/uL (0.1-1.2); Monocytes Percent Auto 4.5 % (2-11); Neutrophils Absolute Auto 7.7 x10*3/uL (2.0-8.3); Neutrophils Percent Auto 76.5 % (45-73); Platelet Count 191 X10*3/uL (160-400); Red Blood Count 3.83 X10*6/uL (4.20-5.50); Red Cell Distribution Width 14.2 % (11.0-16.0)
[2021-12-24 08:56] LABS: VBG Base Excess 1.9 mmol/L; VBG HCO3 25 mmol/L (22-26); VBG pCO2 33 mmHg; VBG pH 7.48 (7.32-7.43); VBG pO2 57 mmHg
[2021-12-24 08:59] LABS: Venous Blood Gas Refer to POC result
[2021-12-24 09:08] LABS: Anion Gap 11 (12-20); Blood Urea Nitrogen 9 mg/dL (9-16); Calcium 7.5 mg/dL (8.4-10.2); Carbon Dioxide 24 mmol/L (22-29); Chloride 110 mmol/L (96-108); Creatinine Clr Calc Pharmacy 84.5; Estimated Glomerular Filt Rate > 60; Glucose Random 175 mg/dL (60-115); Sodium 141 mmol/L (135-145)
--- NOTE | 2021-12-24 10:18 | MHC.CLN ---
F/U PT REMAINS INTUBATED TOLERATING TF AT FS PER NSG WITH LOW RESIDUALS PT RECEIVING TF JEVITY 1.0 AT MAX GOAL RATE 60ML/HR WITH 240ML FREE WATER FLUSHES Q 8 HRS PROVIDES 1526KCALS (24KCALS/KG BASED ON CMW), 64G PROTEIN (1.0G/KG), 1922ML TOTAL FREE WATER FROM FORMULA AND FLUSHES (30ML/KG) CONTINUE TO MONITOR TOLERANCE, RESIDUALS AND LYTES
--- NOTE | 2021-12-24 10:46 | PC.NURSE ---
Addendum entered by Jordy Cazares RN 12/24/21 13:10: Per MD, pt is not to be extubated today. Tube feeds restarted, water boluses maintained. Original Note: per md perform sedation vacation and assess pt, plan to extubate. TF on hold, RT and MD adjusting vent settings. Pt waking up later this AM, following commands, md informed. family at bedside.
--- NOTE | 2021-12-24 13:19 | P.PNCC_ITS ---
Subjective Subjective Date of Service: 12/24/21 Interval History: She once again awaken and follow commands but has very poor negative inspiratory force and very poor vital capacities and remained only on high levels of pressure support for very marginal tidal volumes and I reached out to her neurologist in [facility] 3 times today with no response looking to see if there was any feedback make sure that we were not missing and other potential entity that is potential that could be reversible such as myasthenia but this may just simply be adeno was slow recovery probably a slowly resolving cerebral edema from the prolonged hypercapnia and were going once again to recent date with just next dexmedetomidine and attempt pressure support wean in the morning She apparently does have pneumococcal pneumonia and this does seem to be community-acquired and probably precipitated the latest episode of respiratory failure Critical Care Time (minutes): 45 Physical Exam Vital Signs: Vital Signs: Last Vital Signs Temp 97.5 F 12/24/21 12:00 Pulse 67 12/24/21 13:00 Resp 20 12/24/21 13:00 BP 101/50 L 12/24/21 13:00 Pulse Ox 92 12/24/21 13:00 O2 Del Method 12/24/21 13:00 O2 Flow Rate 2 12/21/21 14:06 FiO2 30 12/24/21 13:00 Oxygen Flow Rate 15 12/20/21 17:07 BMI result Body Mass Index 27.3 The bedside echo is still Demonstrates class 1 LV function lungs without adventitious sounds certainly no accessory muscle use Abdomen is benign soft no again a megaly Good bilateral carotid upstrokes no neck vein distension Objective Data Labs CBC & Chem 7: 12/24/21 08:47 12/24/21 08:47 Labs: Laboratory Results - last 24 hr 12/20/21 12/24/21 12/24/21 18:26 08:47 08:47 WBC 10.0 RBC 3.83 L Hgb 10.2 L Hct 32.6 L MCV 85.1 MCH 26.6 L MCHC 31.3 RDW 14.2 Plt Count 191 MPV 10.5 Immature Gran % (Auto) 0.7 H Neut % (Auto) 76.5 H Lymph % (Auto) 16.1 L [place] % (Auto) 4.5 Eos % (Auto) 1.8 Baso % (Auto) 0.4 Lymph # (Auto) 1.6 [place] # (Auto) 0.5 Eos # (Auto) 0.2 Baso # (Auto) 0.0 Abs Immat Gran (auto) 0.07 H Absolute Neuts (auto) 7.7 Absolute Nucleated RBC 0.000 Nucleated RBC % (auto) 0.0 VBG pH VBG pCO2 VBG pO2 VBG HCO3 VBG O2 Saturation VBG Base Excess Sodium 141 Potassium 4.0 Chloride 110 H Carbon Dioxide 24 Anion Gap 11 L BUN 9 Creatinine 0.63 Estim Creat Clear Calc 84.5 Estimated GFR > 60 Random Glucose 175 H Calcium 7.5 L Levetiracetam 75.5 H 12/24/21 08:51 WBC RBC Hgb Hct MCV MCH MCHC RDW Plt Count MPV Immature Gran % (Auto) Neut % (Auto) Lymph % (Auto) [place] % (Auto) Eos % (Auto) Baso % (Auto) Lymph # (Auto) [place] # (Auto) Eos # (Auto) Baso # (Auto) Abs Immat Gran (auto) Absolute Neuts (auto) Absolute Nucleated RBC Nucleated RBC % (auto) VBG pH 7.48 H VBG pCO2 33 VBG pO2 57 VBG HCO3 25 VBG O2 Saturation 88.0 VBG Base Excess 1.9 Sodium Potassium Chloride Carbon Dioxide Anion Gap BUN Creatinine Estim Creat Clear Calc Estimated GFR Random Glucose Calcium Levetiracetam Microbiology Microbiology Results: Microbiology 12/21/21 Unknown Sputum - Suctioned Gram Stain - Final 12/21/21 Unknown Sputum - Suctioned Sputum Culture - Final Streptococcus pneumoniae 12/20/21 18:26 Blood - Venous Blood Culture - Preliminary No growth after 48 hours. 12/20/21 17:27 Blood - Venous Blood Culture - Preliminary No growth after 48 hours. Progress Note: A&P Assessment and plan (1) Pneumococcal pneumonia: Status: Acute (2) Metabolic alkalosis with respiratory acidosis: Status: Acute (3) Acute on chronic respiratory failure with hypercapnia: Status: Acute (4) Acute respiratory failure with hypoxia: Status: Acute (5) Encephalopathy: Status: Acute (6) Seizure: Status: Acute (7) AMS (altered mental status): Status: Acute (8) DVT (deep venous thrombosis): Status: Acute (9) Essential hypertension: Status: Acute (10) Torticollis, acquired: Status: Acute (11) COVID-19: Status: Acute Plan Antibiotic therapy to continue along with ventilator support and weaning dexmedetomidine in the morning and again another pressure support weaning trial and failing this we will need to get our Neurology involved but unfortunately we can to inpatient EMG so a rather limited Quality Stroke Does the patient have a stroke diagnosis?: No VTE Prior VTE?: Yes VTE Risk Level:: Medical - moderate - high VTE Device Contraindication: Treatment Not Indicated VTE Drug Contraindication: N/A - Med Ordered
[2021-12-24] MEDS: dexmedeTOMIDidine HCL/NS 400 MCG/100 ML INFUS..BTL 10.59 MCG IVCONT (14:45)
[2021-12-24 19:06] LABS: Vancomycin Trough < 3.0 mcg/mL (10.0-20.0)
[2021-12-24] MEDS: Chlorhexidine Gluc Oral Rinse 15 ML MOUTHWASH BUCCAL (21:00)
[2021-12-24] MEDS: dexmedeTOMIDidine HCL/NS 400 MCG/100 ML INFUS..BTL 21.18 MCG IVCONT (22:29)
[2021-12-25] VITALS (35 sets, daily range): BP systolic 109–162; BP diastolic 56–85; PULSE 45–111; RESP 13–30; TEMP 34.6–37.6; O2SAT 94–100; BMI 33.4
[2021-12-25 01:01] LABS: VBG Base Excess 5.9 mmol/L; VBG HCO3 29 mmol/L (22-26); VBG pCO2 36 mmHg; VBG pO2 49 mmHg
[2021-12-25 01:57] LABS: MANUAL DIFF FLAG NO
[2021-12-25 01:59] LABS: Basophils Absolute Auto 0.1 X10*3/uL (0.0-0.2); Basophils Percent Auto 0.5 % (0-2); Eosinophils Absolute Auto 0.3 X10*3/uL (0.0-0.4); Eosinophils Percent Auto 3.2 % (0-4); Hematocrit 32.3 % (37.0-47.0); Hemoglobin 10.2 g/dl (12.0-16.0); Imm Gran Abs Auto 0.06 X10*3/uL (0.00-0.03); Imm Gran Pct Auto 0.6 % (0.0-0.4); Lymphocytes Percent Auto 21.6 % (20-40); Mean Corpuscular HGB Conc 31.6 g/dl (31.0-35.0); Mean Corpuscular Volume 85.4 fL (80.0-98.0); Mean Platelet Volume 11.5 fL (9.4-12.3); Monocytes Absolute Auto 0.5 X10*3/uL (0.1-1.2); Monocytes Percent Auto 5.8 % (2-11); Neutrophils Absolute Auto 6.3 x10*3/uL (2.0-8.3); Neutrophils Percent Auto 68.3 % (45-73); Platelet Count 216 X10*3/uL (160-400); Red Blood Count 3.78 X10*6/uL (4.20-5.50); Red Cell Distribution Width 14.4 % (11.0-16.0); White Blood Count 9.3 X10*3/uL (4.8-10.8)
[2021-12-25 02:05] LABS: Venous Blood Gas Refer to POC result
[2021-12-25 02:32] LABS: Alanine Aminotransferase 13 U/L (0-31); Albumin Level 2.7 g/dL (3.5-5.0); Alkaline Phosphatase 63 U/L (39-117); Anion Gap 13 (12-20); Aspartate Amino Transferase 13 U/L (5-31); Bilirubin Total 0.3 mg/dL (0.0-1.0); Blood Urea Nitrogen 12 mg/dL (9-16); Calcium 7.9 mg/dL (8.4-10.2); Carbon Dioxide 24 mmol/L (22-29); Chloride 108 mmol/L (96-108); Creatinine Clr Calc Pharmacy 81.9; Estimated Glomerular Filt Rate > 60; Glucose Random 146 mg/dL (60-115); Magnesium 2.7 mg/dL (1.6-2.6); Phosphorus 2.6 mg/dL (2.7-4.5); Potassium 4.4 mmol/L (3.3-5.1); Sodium 141 mmol/L (135-145); Total Protein 5.2 g/dL (6.5-8.0)
[2021-12-25] MEDS: dexmedeTOMIDidine HCL/NS 400 MCG/100 ML INFUS..BTL 21.18 MCG IVCONT (03:15)
--- NOTE | 2021-12-25 06:37 | PM.CCPN ---
Subjective Subjective Date of Service: 12/25/21 Interval History: 66-year-old female with history of brain cancer treated with radiation and chemotherapy presented with witnessed seizure by and home and was supposed to have been on Keppra and indeed the a Keppra level when she presented was elevated but was treated here with the Versed and apparently and no further a stentable seizure activity but rather than document that she was able to reawakened from her postictal state she remained unresponsive nearly 24 hours and a subsequent blood gas showed acute on chronic hypercarbic respiratory failure and and she remained unresponsive so she was intubated and transferred to the ICU where we produced a minute ventilation bringing her pCO2 down and subsequently gradual reduction of her metabolic alkalosis as well and with each a sedation holiday she had been very very slow to recover her cognitive function but little by little she is able to follow commands and each day on the ventilator weaning trial she is able to remain on pressure support all be at an elevated level which is is 15/5 maintaining improved tidal volumes in the mid 300s and today it was most of the day but at this point she is fatiguing and became agitated so we sedated this time with very small dose of Versed replaced her on pressure control Her intake and output were considerably positive and today coughing up a.m. clear pinkish sputum with a and CVP level of of approximately 9 and we gave her a diuresis And a questionable infiltrates particularly left base possibly bibasilar on chest x-ray sputum grew pneumococcus and patient has been on ceftriaxone as well Critical Care Time (minutes): 45 Physical Exam Vital Signs: Vital Signs: Last Vital Signs Temp 97.3 F 12/24/21 23:00 Pulse 47 L 12/25/21 06:09 Resp 14 12/25/21 06:00 BP 162/76 H 12/25/21 06:00 Pulse Ox 98 12/25/21 06:00 O2 Del Method 12/25/21 06:00 O2 Flow Rate 2 12/21/21 14:06 FiO2 30 12/25/21 06:00 Oxygen Flow Rate 15 12/20/21 17:07 BMI result Body Mass Index 33.4 Certainly not well animated but awakening to a greater degree each day family communicating with her and she following our commands with more eye opening Bedside cardiac exam a by echo indicating normal LV dimension and function no primary valve or pericardial disease Chest x-ray indicated that the endotracheal tube was at the ronald so we brought that back several cm no adventitious sounds noted Abdomen soft with no organomegaly tolerating feedings Objective Data Labs CBC & Chem 7: 12/25/21 00:48 12/25/21 19:49 Labs: Laboratory Results - last 24 hr 12/24/21 12/24/21 12/24/21 08:47 08:47 08:51 WBC 10.0 RBC 3.83 L Hgb 10.2 L Hct 32.6 L MCV 85.1 MCH 26.6 L MCHC 31.3 RDW 14.2 Plt Count 191 MPV 10.5 Immature Gran % (Auto) 0.7 H Neut % (Auto) 76.5 H Lymph % (Auto) 16.1 L [place] % (Auto) 4.5 Eos % (Auto) 1.8 Baso % (Auto) 0.4 Lymph # (Auto) 1.6 [place] # (Auto) 0.5 Eos # (Auto) 0.2 Baso # (Auto) 0.0 Abs Immat Gran (auto) 0.07 H Absolute Neuts (auto) 7.7 Absolute Nucleated RBC 0.000 Nucleated RBC % (auto) 0.0 VBG pH 7.48 H VBG pCO2 33 VBG pO2 57 VBG HCO3 25 VBG O2 Saturation 88.0 VBG Base Excess 1.9 Sodium 141 Potassium 4.0 Chloride 110 H Carbon Dioxide 24 Anion Gap 11 L BUN 9 Creatinine 0.63 Estim Creat Clear Calc 84.5 Estimated GFR > 60 Random Glucose 175 H Calcium 7.5 L Phosphorus Magnesium Total Bilirubin AST ALT Alkaline Phosphatase Total Protein Albumin Vancomycin Trough 12/24/21 12/25/21 12/25/21 18:23 00:48 00:48 WBC 9.3 RBC 3.78 L Hgb 10.2 L Hct 32.3 L MCV 85.4 MCH 27.0 MCHC 31.6 RDW 14.4 Plt Count 216 MPV 11.5 Immature Gran % (Auto) 0.6 H Neut % (Auto) 68.3 Lymph % (Auto) 21.6 [place] % (Auto) 5.8 Eos % (Auto) 3.2 Baso % (Auto) 0.5 Lymph # (Auto) 2.0 [place] # (Auto) 0.5 Eos # (Auto) 0.3 Baso # (Auto) 0.1 Abs Immat Gran (auto) 0.06 H Absolute Neuts (auto) 6.3 Absolute Nucleated RBC 0.000 Nucleated RBC % (auto) 0.0 VBG pH VBG pCO2 VBG pO2 VBG HCO3 VBG O2 Saturation VBG Base Excess Sodium 141 Potassium 4.4 Chloride 108 Carbon Dioxide 24 Anion Gap 13 BUN 12 Creatinine 0.65 Estim Creat Clear Calc 81.9 Estimated GFR > 60 Random Glucose 146 H Calcium 7.9 L Phosphorus 2.6 L Magnesium 2.7 H Total Bilirubin 0.3 AST 13 D ALT 13 Alkaline Phosphatase 63 Total Protein 5.2 L Albumin 2.7 L Vancomycin Trough < 3.0 L 12/25/21 00:55 WBC RBC Hgb Hct MCV MCH MCHC RDW Plt Count MPV Immature Gran % (Auto) Neut % (Auto) Lymph % (Auto) [place] % (Auto) Eos % (Auto) Baso % (Auto) Lymph # (Auto) [place] # (Auto) Eos # (Auto) Baso # (Auto) Abs Immat Gran (auto) Absolute Neuts (auto) Absolute Nucleated RBC Nucleated RBC % (auto) VBG pH 7.50 H VBG pCO2 36 VBG pO2 49 VBG HCO3 29 H VBG O2 Saturation 79.0 VBG Base Excess 5.9 Sodium Potassium Chloride Carbon Dioxide Anion Gap BUN Creatinine Estim Creat Clear Calc Estimated GFR Random Glucose Calcium Phosphorus Magnesium Total Bilirubin AST ALT Alkaline Phosphatase Total Protein Albumin Vancomycin Trough Microbiology Microbiology Results: Microbiology 12/21/21 Unknown Sputum - Suctioned Gram Stain - Final 12/21/21 Unknown Sputum - Suctioned Sputum Culture - Final Streptococcus pneumoniae 12/20/21 18:26 Blood - Venous Blood Culture - Preliminary No growth after 48 hours. 12/20/21 17:27 Blood - Venous Blood Culture - Preliminary No growth after 48 hours. Progress Note: A&P Assessment and plan (1) Pneumococcal pneumonia: Status: Acute (2) Metabolic alkalosis with respiratory acidosis: Status: Acute (3) Acute on chronic respiratory failure with hypercapnia: Status: Acute (4) Acute respiratory failure with hypoxia: Status: Acute (5) Encephalopathy: Status: Acute (6) Seizure: Status: Acute (7) AMS (altered mental status): Status: Acute (8) DVT (deep venous thrombosis): Status: Acute (9) Essential hypertension: Status: Acute (10) COVID-19: Status: Acute (11) TERI on CPAP: Status: Acute Plan Plan at this point again follow her CVP to prevent iatrogenic fluid overload continue treating for pneumococcal pneumonia and sedation holiday and early this morning and again a pressure support weaning trial from the ventilator Quality Stroke Does the patient have a stroke diagnosis?: No VTE Prior VTE?: Yes VTE Risk Level:: Medical - moderate - high VTE Device Contraindication: Treatment Not Indicated VTE Drug Contraindication: N/A - Med Ordered
[2021-12-25] MEDS: Enoxaparin Sodium 80 MG/0.8 ML SYRINGE SUBCUT ×2 (09:31→20:23)
[2021-12-25] MEDS: 0.9 % Sodium Chloride Flush 3 ML SYRINGE IVFLUSH ×3 (09:31→23:49)
[2021-12-25] MEDS: Chlorhexidine Gluc Oral Rinse 15 ML MOUTHWASH BUCCAL ×3 (09:32→20:23)
[2021-12-25] MEDS: levETIRAcetam in NaCl (iso-os) 1,000 MG/100 ML PIGGYBACK 400 MG IV ×3 (09:32→20:23)
[2021-12-25] MEDS: cefTRIAXone sodium 1 GM in 0.9 % Sodium Chloride 50 ML IV ×2 (11:38→23:48)
--- NOTE | 2021-12-25 14:29 | MHC.CM.PN ---
Pt continues on ventilatory support in ICU: weaning attempts have been thwarted by pt's aggitation and distress during sedation reduction. Pt's original d/c plan was for a return to home w/family however, STR referrals were made as it seems highly likely that pt will be able to immediately return home. CM to follow.
--- NOTE | 2021-12-25 19:27 | PC.NURSE ---
SEDATION VACATION INITIATED 09:22 10:30 ET TUBE MOVED TO 20@LIP PER MD BASED ON CXR 10:32 VENT SETTINGS CHANGED FROM AC TO PS 15/5 30% 16:50 MAP LOW 56, LEVOPHED STARTED @0.05 MCG/KG/MIN. TITRATED DOWN TO 0.01 MCG/KG/MIN FOR HIGH MAP. +COUGH AND +GAG REFLEXES, PT ABLE TO FOLLOW SIMPLE COMMANDS, OPENS EYES SLIGHTLY BUT NOT FULLY. PT REQUIRED FREQUENT ORAL SUCTIONING TO MANAGE ORAL SECRETIONS WITH HEAD/NECK CONTRACTED TO RIGHT.
[2021-12-25] MEDS: Midazolam HCl/NS 50 MG/50 ML PLAST..BAG IVCONT (19:57)
[2021-12-25 21:01] LABS: Anion Gap 15 (12-20); Blood Urea Nitrogen 9 mg/dL (9-16); Calcium 8.2 mg/dL (8.4-10.2); Carbon Dioxide 23 mmol/L (22-29); Chloride 109 mmol/L (96-108); Creatinine Clr Calc Pharmacy 91.8; Estimated Glomerular Filt Rate > 60; Glucose Random 120 mg/dL (60-115); Sodium 143 mmol/L (135-145)
[2021-12-25] MEDS: Midazolam HCl/PF 2 MG/2 ML VIAL IVPUSH (22:10)
[2021-12-25] MEDS: dexmedeTOMIDidine HCL/NS 400 MCG/100 ML INFUS..BTL 8.84 MCG IVCONT (22:30)
[2021-12-26] VITALS (40 sets, daily range): BP systolic 79–169; BP diastolic 39–92; PULSE 50–99; RESP 12–18; TEMP 34.6–37.4; O2SAT 91–100; BMI 33.4
[2021-12-26] MEDS: dexmedeTOMIDidine HCL/NS 400 MCG/100 ML INFUS..BTL 13.26 MCG IVCONT (03:59)
[2021-12-26 04:29] LABS: VBG Base Excess 4.7 mmol/L; VBG HCO3 28 mmol/L (22-26); VBG pCO2 40 mmHg; VBG pH 7.45 (7.32-7.43); VBG pO2 48 mmHg
[2021-12-26 04:39] LABS: MANUAL DIFF FLAG NO
[2021-12-26 04:40] LABS: Basophils Percent Auto 0.3 % (0-2); Eosinophils Absolute Auto 0.3 X10*3/uL (0.0-0.4); Eosinophils Percent Auto 2.6 % (0-4); Hematocrit 31.8 % (37.0-47.0); Hematocrit 32.6 % (37.0-47.0); Hemoglobin 10.1 g/dl (12.0-16.0); Imm Gran Abs Auto 0.09 X10*3/uL (0.00-0.03); Imm Gran Pct Auto 0.9 % (0.0-0.4); Lymphocytes Absolute Auto 1.5 X10*3/uL (1.2-4.9); Mean Corpuscular HGB Conc 31.8 g/dl (31.0-35.0); Mean Corpuscular Hemoglobin 26.1 pg (27.0-33.0); Mean Corpuscular Volume 84.2 fL (80.0-98.0); Mean Platelet Volume 10.6 fL (9.4-12.3); Mean Platelet Volume 10.7 fL (9.4-12.3); Monocytes Absolute Auto 0.7 X10*3/uL (0.1-1.2); Monocytes Percent Auto 7.1 % (2-11); Neutrophils Absolute Auto 7.6 x10*3/uL (2.0-8.3); Neutrophils Percent Auto 74.1 % (45-73); Platelet Count 225 X10*3/uL (160-400); Platelet Count 239 X10*3/uL (160-400); Red Blood Count 3.74 X10*6/uL (4.20-5.50); Red Blood Count 3.87 X10*6/uL (4.20-5.50); Red Cell Distribution Width 14.5 % (11.0-16.0); White Blood Count 10.2 X10*3/uL (4.8-10.8); White Blood Count 10.3 X10*3/uL (4.8-10.8)
[2021-12-26 04:57] LABS: Anion Gap 14 (12-20); Blood Urea Nitrogen 9 mg/dL (9-16); Calcium 7.9 mg/dL (8.4-10.2); Carbon Dioxide 24 mmol/L (22-29); Chloride 108 mmol/L (96-108); Estimated Glomerular Filt Rate > 60; Glucose Random 158 mg/dL (60-115); Magnesium 2.1 mg/dL (1.6-2.6); Sodium 142 mmol/L (135-145)
[2021-12-26 06:11] LABS: Venous Blood Gas Refer to POC result
--- NOTE | 2021-12-26 06:56 | PM.CCPN ---
Subjective Subjective Date of Service: 12/26/21 Interval History: 66-year-old female with background history of brain tumor that was irradiated and treated with chemotherapy and apparently have been coming increasingly weak and short of breath with upper respiratory symptoms and and then was noted by the to become weak on the waited the bathroom he caught her witnessed a seizure In the ER they noticed that she also had some but in of stiff stiffening bilaterally of the upper extremities interpreted as a seizure and she was obtunded and unarousable so she was loaded with Keppra and then she was given Versed here and she had a chest CTA and and a peripheral ultrasound they thought that she had the no DVT with persistent leg swelling on the left side so she was treated with full-dose Lovenox but ultimately when she did not awaken after having the seizure treated there was over 24 hours and respiratory you know it noted that she was unarousable and obtained a blood gas that demonstrated an acute on chronic severe respiratory acidosis with pCO2 of 125 Kristie Knight required intubation in a clearly her GCS score was very low and insurance for to the ICU where she has been and the initial sputum that was obtained now grew pneumococcus and it looked like he she had probably bibasilar infiltrates so this may all have been a community-acquired pneumonia each day little by little she is capable of awakening she is lethargic slow to open her eyes but she is definitely capable of following commands so cognitive function is there yesterday she tolerated pressure support with a very marginal tidal volumes but was her best day so we are going to stop her Precedex this morning and do the same She remains on ceftriaxone for the pneumococcal pneumonia and I did bedside echo on her this morning LV and RV function seemed to be okay she did have a negative CTA for any thrombus in the lung She better tolerated pressure support with and ever improving degree of of cognitive function and definitely improving tidal volumes but the pressure in the system was 15/5 for total airway pressure of 20 and a soon as I weaned her down to 12/5 tidal volumes did not do well they dropped down from the high 300s on the average to the high 200s she compensated by picking up her respiratory rate and to produce more minute ventilation in but did you to tell she was fatiguing trouble maintaining her volume heart rate was increasing with more atrial ectopy so at that point we put her back on the dexmedetomidine and the pressure control as she had been on the no for an overnight rest but definitely improving some hopeful that over the course of the next 24 hours she might be weanable and she does have CPAP at home but according to the she does not use it 50% of the time that is required Critical Care Time (minutes): 45 Physical Exam Vital Signs: Vital Signs: Last Vital Signs Temp 98.0 F 12/26/21 00:00 Pulse 62 12/26/21 06:00 Resp 14 12/26/21 06:00 BP 124/58 L 12/26/21 06:00 Pulse Ox 98 12/26/21 06:00 O2 Del Method 12/26/21 06:00 O2 Flow Rate 2 12/21/21 14:06 FiO2 30 12/26/21 06:00 Oxygen Flow Rate 15 12/20/21 17:07 BMI result Body Mass Index 33.4 She is awake and responsive even when echoed on the Precedex Good bilateral carotid upstrokes no neck vein distension Abdomen with no again a megaly Chest without adventitious sounds So cognitive function and demonstrated respiratory effort and strength definitely improving Objective Data Labs CBC & Chem 7: 12/26/21 04:15 12/26/21 04:15 Labs: Laboratory Results - last 24 hr 12/25/21 12/26/21 12/26/21 19:49 04:15 04:15 WBC 10.2 10.3 RBC 3.87 L 3.74 L Hgb 10.1 L 10.1 L Hct 32.6 L 31.8 L MCV 84.2 85.0 MCH 26.1 L 27.0 MCHC 31.0 31.8 RDW 14.5 14.5 Plt Count 239 225 MPV 10.6 10.7 Immature Gran % (Auto) 0.9 H Neut % (Auto) 74.1 H Lymph % (Auto) 15.0 L [place] % (Auto) 7.1 Eos % (Auto) 2.6 Baso % (Auto) 0.3 Lymph # (Auto) 1.5 [place] # (Auto) 0.7 Eos # (Auto) 0.3 Baso # (Auto) 0.0 Abs Immat Gran (auto) 0.09 H Absolute Neuts (auto) 7.6 Absolute Nucleated RBC 0.000 0.000 Nucleated RBC % (auto) 0.0 0.0 VBG pH VBG pCO2 VBG pO2 VBG HCO3 VBG O2 Saturation VBG Base Excess Sodium 143 Potassium 4.0 Chloride 109 H Carbon Dioxide 23 Anion Gap 15 BUN 9 Creatinine 0.64 Estim Creat Clear Calc 91.8 Estimated GFR > 60 Random Glucose 120 H Calcium 8.2 L Magnesium 12/26/21 12/26/21 04:15 04:23 WBC RBC Hgb Hct MCV MCH MCHC RDW Plt Count MPV Immature Gran % (Auto) Neut % (Auto) Lymph % (Auto) [place] % (Auto) Eos % (Auto) Baso % (Auto) Lymph # (Auto) [place] # (Auto) Eos # (Auto) Baso # (Auto) Abs Immat Gran (auto) Absolute Neuts (auto) Absolute Nucleated RBC Nucleated RBC % (auto) VBG pH 7.45 H VBG pCO2 40 VBG pO2 48 VBG HCO3 28 H VBG O2 Saturation 76.0 VBG Base Excess 4.7 Sodium 142 Potassium 4.0 Chloride 108 Carbon Dioxide 24 Anion Gap 14 BUN 9 Creatinine 0.66 Estim Creat Clear Calc 89.0 Estimated GFR > 60 Random Glucose 158 H Calcium 7.9 L Magnesium 2.1 Microbiology Microbiology Results: Microbiology 12/20/21 18:26 Blood - Venous Blood Culture - Final No growth after 5 days. 12/20/21 17:27 Blood - Venous Blood Culture - Final No growth after 5 days. 12/21/21 Unknown Sputum - Suctioned Gram Stain - Final 12/21/21 Unknown Sputum - Suctioned Sputum Culture - Final Streptococcus pneumoniae Progress Note: A&P Assessment and plan (1) Pneumococcal pneumonia: Status: Acute (2) Metabolic alkalosis with respiratory acidosis: Status: Acute (3) Acute on chronic respiratory failure with hypercapnia: Status: Acute (4) Acute respiratory failure with hypoxia: Status: Acute (5) Encephalopathy: Status: Acute (6) Seizure: Status: Acute (7) AMS (altered mental status): Status: Acute (8) Hypoxia: Status: Acute (9) DVT (deep venous thrombosis): Status: Acute (10) Essential hypertension: Status: Acute (11) Torticollis, acquired: Status: Acute (12) COVID-19: Status: Acute (13) Brain cancer: Status: Acute (14) TERI on CPAP: Status: Acute Plan So for today we are going to again rest on dexmedetomidine and replace the pressure control and again re-attempt removing both sedation and ventilator weaning tomorrow with the expectation that we might need to go on to BiPAP initially and and then determine when she can be on it only nocturnally Quality Stroke Does the patient have a stroke diagnosis?: No VTE Prior VTE?: Yes VTE Risk Level:: Medical - moderate - high VTE Device Contraindication: Treatment Not Indicated VTE Drug Contraindication: N/A - Med Ordered
[2021-12-26] MEDS: Chlorhexidine Gluc Oral Rinse 15 ML MOUTHWASH BUCCAL ×3 (08:49→21:07)
[2021-12-26] MEDS: 0.9 % Sodium Chloride Flush 3 ML SYRINGE IVFLUSH ×2 (08:49→15:38)
[2021-12-26] MEDS: Enoxaparin Sodium 80 MG/0.8 ML SYRINGE SUBCUT ×2 (08:49→21:06)
[2021-12-26] MEDS: levETIRAcetam in NaCl (iso-os) 1,000 MG/100 ML PIGGYBACK 400 MG IV ×3 (09:05→21:07)
[2021-12-26] MEDS: cefTRIAXone sodium 1 GM in 0.9 % Sodium Chloride 50 ML IV (11:07)
--- NOTE | 2021-12-26 18:54 | PC.NURSE ---
PATIENT PLACED ON SEDATION VACATION, SEE EMAR. PATIENT HANDLED SEDATION VACATION WELL AND HAD VENT CHANGED FROM PC TO PS VENT SETTINGS, SEE VENT ASSESMENT. PATIENT PLACED BACK ON PC SETTING TO ALLOW TO REST OVERNIGHT PER MD. PATIENT AND UPDATED ON HEALTH STATUS, BATHED, ROUTINE ORAL CARE PREFORMED, REPOSITIONED Q2HR.
[2021-12-27] VITALS (36 sets, daily range): BP systolic 87–150; BP diastolic 46–79; PULSE 48–90; RESP 11–20; TEMP 34.6–37.2; O2SAT 96–100; BMI 33.0
[2021-12-27] MEDS: cefTRIAXone sodium 1 GM in 0.9 % Sodium Chloride 50 ML IV ×2 (00:19→11:47)
[2021-12-27] MEDS: Midazolam HCl/NS 50 MG/50 ML PLAST..BAG IVCONT (03:07)
[2021-12-27 05:35] LABS: MANUAL DIFF FLAG NO
[2021-12-27] MEDS: dexmedeTOMIDidine HCL/NS 400 MCG/100 ML INFUS..BTL IVCONT (05:38)
[2021-12-27 05:39] LABS: Basophils Absolute Auto 0.1 X10*3/uL (0.0-0.2); Basophils Percent Auto 0.6 % (0-2); Eosinophils Absolute Auto 0.3 X10*3/uL (0.0-0.4); Eosinophils Percent Auto 2.7 % (0-4); Hematocrit 29.6 % (37.0-47.0); Hemoglobin 9.3 g/dl (12.0-16.0); Imm Gran Abs Auto 0.09 X10*3/uL (0.00-0.03); Imm Gran Pct Auto 0.8 % (0.0-0.4); Lymphocytes Percent Auto 18.6 % (20-40); Mean Corpuscular HGB Conc 31.4 g/dl (31.0-35.0); Mean Corpuscular Hemoglobin 26.4 pg (27.0-33.0); Mean Corpuscular Volume 84.1 fL (80.0-98.0); Mean Platelet Volume 10.5 fL (9.4-12.3); Neutrophils Absolute Auto 7.3 x10*3/uL (2.0-8.3); Neutrophils Percent Auto 68.3 % (45-73); Platelet Count 226 X10*3/uL (160-400); Red Blood Count 3.52 X10*6/uL (4.20-5.50); Red Cell Distribution Width 14.3 % (11.0-16.0); White Blood Count 10.7 X10*3/uL (4.8-10.8)
[2021-12-27 05:46] LABS: VBG Base Excess 3.4 mmol/L; VBG HCO3 26 mmol/L (22-26); VBG pCO2 35 mmHg; VBG pH 7.48 (7.32-7.43); VBG pO2 71 mmHg
[2021-12-27 05:59] LABS: Anion Gap 12 (12-20); Blood Urea Nitrogen 7 mg/dL (9-16); Calcium 7.7 mg/dL (8.4-10.2); Carbon Dioxide 25 mmol/L (22-29); Chloride 106 mmol/L (96-108); Creatinine Clr Calc Pharmacy 97.3; Estimated Glomerular Filt Rate > 60; Glucose Random 153 mg/dL (60-115); Phosphorus 2.5 mg/dL (2.7-4.5); Potassium 3.6 mmol/L (3.3-5.1); Sodium 139 mmol/L (135-145)
[2021-12-27 06:21] LABS: Venous Blood Gas Refer to POC result
[2021-12-27] MEDS: Enoxaparin Sodium 80 MG/0.8 ML SYRINGE SUBCUT ×2 (08:07→20:20)
[2021-12-27] MEDS: levETIRAcetam in NaCl (iso-os) 1,000 MG/100 ML PIGGYBACK 400 MG IV ×2 (08:07→14:07)
[2021-12-27] MEDS: Chlorhexidine Gluc Oral Rinse 15 ML MOUTHWASH BUCCAL ×3 (08:07→20:20)
--- NOTE | 2021-12-27 08:33 | PC.NURSE ---
Addendum entered by Jordy Cazares RN 12/27/21 16:11: per md and RT pt not safe to extuabte today, per stop precedex and start prop drip for sedation Addendum entered by Jordy Cazares RN 12/27/21 11:58: pt noted to be hypotensive. informed, levo started at .04 Original Note: per stop versed and increase dex as tolerated.
--- NOTE | 2021-12-27 09:02 | PM.CCPN ---
Subjective Subjective Date of Service: 12/27/21 Interval History: Mrs. Ferro was transferred to ICU on Dec 21 of hypercarbic respiratory failure. The patient is a 66 year old female w PMHx brain cancer s/p chemo and radiation, DVT, hypertension, recurrent seizures (on Keppra), CVA, and TERI but noncompliant w CPAP.? For the last year or so, she?s had torticollis with her head bent over to the right.? She had Botox tx in [place] which made her worse, accord to family.? Her head is now bent over pretty much all the time. The patient lives w her .? According to the patient?s son, she needs help with all her ADLs.? When she walks, she hold?s on to someone.? ?She eats by herself.? Her is a [employer] consultant and they leave the house almost every day to go to faith. The patient was BIBA to the ED on Dec 20 with altered MS and near syncopal episode.? She had increasing sleepiness for maybe a day prior, along w URI sx.? At the scene, SpO2 was 60% on room air with labored breathing.? The patient does not use oxygen at home.? According to family this was very far off from her baseline -- the patient is usually ambulatory w/ assist and able to carry on basic conversations.? The patient had upper respiratory symptoms such as cough and congestion.? She also mention recently stopped her anticoagulant and was c/o calf pain. In the ED, she was afebrile.? Sat was 99% on NRBFM, with mild resp distress, insp and exp wheezing. ?Not following commands or answering questions.? White count was 13, PT was 22/1.9, bicarb was 34, BUN/creatinine 15/0.7, BNP 175 (was normal last year), albumin was 3.6.? Prior serum bicarb levels in ranged 30-41, and she was not on Lasix. Head CT showed no acute pathology; ?there was unchanged bifrontal , right basal ganglia and right parieto-occipital encephalomalacia. ?CTPA showed no evidence for pulmonary emboli.? The heart size and great vessels were normal.? No evidence of right heart strain. ?There was minor bilat LL atelectasis.? Abdom CT showed no acute intra-abdominal pressure.? At one point, the patient was having upper extremity contractions and appeared to be having a seizure.? Versed was given.? The patient was admitted to Medicine with the diagnosis of seizures.? She was loaded w Keppra.? Venous duplex showed very small amount of echogenic, noncompressible nonocclusive thrombus in the left popliteal vein, could represent chronic thrombus related to prior DVT.? She was given bid Lovenox. The next day (Dec 21), the patient was drowsy minimally responsive. ?On 2.5 L nasal cannula, the sat was 93%.? ABG showed 7.23/125/41/18.? The patient was intubated and transferred to the ICU.? EEG done off propofol on Dec 22 showed severe diffuse background slowing, consistent with a diffuse encephalopathic process.? No epileptiform discharges were seen.? Ultimately, the patient's Keppra level from the ED came back at 75.? The sputum was purulent, so the patient was treated with vanco and meropenam.? On 12/23, the sputum grew 4+ strep pneumo, abx were changed to ceftriaxone. Over the last several days, the patient?s MS has lightened up when she?s not sedated, and she?s been doing PSV trials, but hasn?t been able to last long enough for safe extubation. CURRENT MEDS THIS MORNING: Midazolam 2mg/hr Precedex 0.2 ug Keppra Ceftriaxone. This morning patient is sedated on midazolam and Precedex.? Heart rate 60, blood pressure 126/64.? On AC/PC 14, 16/5, 30%, RR was 14, Vt 385, Ve 5.4L, PIP 21, ETCO2 31, 98%.? CVBG this morning 7.45/38/+3.? Afebrile.? No obvious jugular venous distention with the head of the bed at about 20 degrees.? The patient's head is lying on her right shoulder, pretty much at a right angle to the vertical axis.? With force, I am unable to straighten her neck. ?Listening over her neck, the air passages clear. ?Chest is clear to auscultation, with a normal expiratory phase.? Heart rate and rhythm are regular, with normal-sounding S1 and S2, with no murmur or gallops.? The abdomen is benign.? She has 1+ systemic edema. LABORATORY DATA:? Below.? Notably, white count is 10.7, BUN/creatinine 7/0.6, potassium 3.6, phosphorus 2.5. This afternoon, the patient was awake and answering questions appropriately.? We were able to get her onto pressure support at a level of 12.? CVBG was rechecked and the venous pCO2 is low.? We were unable to get to a lower level of pressure support.? Her respiratory rate love precipitously. IMPRESSION: 1. Fixed torticollis.? My suspicion is that that very likely has something to do with her hypercarbia. 2. Underlying TERI.? The etiology of that is unclear, but likely has something to do with her torticollis. 3. Chronic CO2 retention/hypercarbic respiratory failure.? As demonstrated by her elevated serum bicarb levels. 4. Possible mild pneumococcal pneumonia (community-acquired).? Treated with ceftriaxone.? White count and temperature are normal for days now.? The ceftriaxone can be discontinued. 5. Acute hypercarbic respiratory failure.? The lung parenchyma on her chest CT was very unimpressive so it is highly unlikely that she has a significant pneumonia.? But it?s certainly possible that the pneumococcus was a causative factor in her acute hypercarbic respiratory failure. ??? She failed a weaning trial today.? We?ll start her on Provigil tomorrow morning.? The Versed infusion has been d/c?d, which should help. 6. Possible seizures.? Keppra level was high on admission.? I?ll change her over to Keppra 1000 mg bid. 7. Renal indices are low, she has 1+ edema, BNP was high, and she has resp failure.? Diurese. 8. Hypokalemia.? Repleting. 9. Hypophosphatemia.? Repleting. 10. Nutrition.? On Jevity at goal rate. Spoke with family at some length about her PMHx, pre-admission level of fxn, current condition, treatment, and prognosis.? I?m cautiously optimistic.? Emphasized that the torticollis is not doing her any good. Critical care time (including full chart rev and hosp course summary):? 110 min+ Critical Care Time (minutes): 110 Physical Exam Vital Signs: Vital Signs: Last Vital Signs Temp 98.9 F 12/27/21 08:00 Pulse 57 12/27/21 08:00 Resp 14 12/27/21 08:00 BP 126/64 12/27/21 08:21 Pulse Ox 100 12/27/21 08:00 O2 Del Method 12/27/21 08:00 O2 Flow Rate 2 12/21/21 14:06 FiO2 30 12/27/21 08:00 Oxygen Flow Rate 15 12/20/21 17:07 BMI result Body Mass Index 33.0 Objective Data Labs CBC & Chem 7: 12/27/21 05:28 12/27/21 05:28 Labs: Laboratory Results - last 24 hr 12/27/21 12/27/21 12/27/21 05:28 05:28 05:41 WBC 10.7 RBC 3.52 L Hgb 9.3 L Hct 29.6 L MCV 84.1 MCH 26.4 L MCHC 31.4 RDW 14.3 Plt Count 226 MPV 10.5 Immature Gran % (Auto) 0.8 H Neut % (Auto) 68.3 Lymph % (Auto) 18.6 L [place] % (Auto) 9.0 Eos % (Auto) 2.7 Baso % (Auto) 0.6 Lymph # (Auto) 2.0 [place] # (Auto) 1.0 Eos # (Auto) 0.3 Baso # (Auto) 0.1 Abs Immat Gran (auto) 0.09 H Absolute Neuts (auto) 7.3 Absolute Nucleated RBC 0.000 Nucleated RBC % (auto) 0.0 VBG pH 7.48 H VBG pCO2 35 VBG pO2 71 VBG HCO3 26 VBG O2 Saturation 95.0 VBG Base Excess 3.4 Sodium 139 Potassium 3.6 Chloride 106 Carbon Dioxide 25 Anion Gap 12 BUN 7 L Creatinine 0.60 Estim Creat Clear Calc 97.3 Estimated GFR > 60 Random Glucose 153 H Calcium 7.7 L Phosphorus 2.5 L Magnesium 2.0 Microbiology Microbiology Results: Microbiology 12/20/21 18:26 Blood - Venous Blood Culture - Final No growth after 5 days. 12/20/21 17:27 Blood - Venous Blood Culture - Final No growth after 5 days. 12/21/21 Unknown Sputum - Suctioned Gram Stain - Final 12/21/21 Unknown Sputum - Suctioned Sputum Culture - Final Streptococcus pneumoniae Quality Stroke Does the patient have a stroke diagnosis?: No VTE Prior VTE?: Yes VTE Risk Level:: Medical - moderate - high VTE Device Contraindication: Treatment Not Indicated VTE Drug Contraindication: N/A - Med Ordered Critical Care Time Critical Care Time (minutes): 120
--- NOTE | 2021-12-27 10:20 | MHC.CM.PN ---
Patient continues to be intubated with plan for wean attempts today. CM will continue to follow for STR placement post-hospitalization.
[2021-12-27] MEDS: Potassium Chloride/H20 40 MEQ/100 ML PIGGYBACK 50 MEQ IV (14:07)
[2021-12-27] MEDS: Magnesium Sulfate/H2O 2 GM/50 ML PIGGYBACK IV (14:07)
[2021-12-27 14:55] LABS: Venous Blood Gas Refer to POC result
[2021-12-27 14:57] LABS: VBG Base Excess 3.4 mmol/L; VBG HCO3 27 mmol/L (22-26); VBG pCO2 38 mmHg; VBG pH 7.45 (7.32-7.43); VBG pO2 71 mmHg
[2021-12-27] MEDS: propofoL 1,000 MG/100 ML VIAL 5.24 MG IVCONT (16:16)
[2021-12-27] MEDS: Furosemide 20 MG/2 ML VIAL IVPUSH (17:14)
[2021-12-27] MEDS: Furosemide 200 MG in 0.9 % Sodium Chloride 80 ML IVCONT (17:14)
[2021-12-27] MEDS: levETIRAcetam Oral Soln 500 MG/5 ML 1000 MG G-TUBE (20:20)
[2021-12-27] MEDS: Potassium Chloride Packet 20 MEQ PACKET 40 MEQ G-TUBE (20:22)
[2021-12-27] MEDS: propofoL 1,000 MG/100 ML VIAL 20.98 MG IVCONT (23:43)
[2021-12-27] MEDS: 0.9 % Sodium Chloride Flush 3 ML SYRINGE IVFLUSH (23:45)
[2021-12-28] VITALS (32 sets, daily range): BP systolic 96–155; BP diastolic 43–75; PULSE 56–98; RESP 10–22; TEMP 33.7–37.9; O2SAT 92–100; BMI 31.7
--- NOTE | 2021-12-28 00:14 | PC.NURSE ---
Continues on mechanical ventilation, was alert and calm on 20 of propofol, followed all commands, moved all extremities, denied pain. Later she was more restless and required uptitration of propofol, now on 30. Patient with 558 cc/hour of pale yellow urine, PA aware, is continuing on lasix gtt.
[2021-12-28] MEDS: propofoL 1,000 MG/100 ML VIAL 20.98 MG IVCONT ×3 (02:58→22:34)
[2021-12-28 05:20] LABS: VBG Base Excess 6.7 mmol/L; VBG HCO3 30 mmol/L (22-26); VBG pCO2 41 mmHg; VBG pH 7.48 (7.32-7.43); VBG pO2 53 mmHg
[2021-12-28 05:34] LABS: Venous Blood Gas Refer to POC result
[2021-12-28 06:07] LABS: MANUAL DIFF FLAG NO
[2021-12-28 06:20] LABS: Basophils Absolute Auto 0.1 X10*3/uL (0.0-0.2); Basophils Percent Auto 0.5 % (0-2); Eosinophils Absolute Auto 0.3 X10*3/uL (0.0-0.4); Eosinophils Percent Auto 3.5 % (0-4); Hematocrit 33.4 % (37.0-47.0); Hemoglobin 10.4 g/dl (12.0-16.0); Imm Gran Abs Auto 0.16 X10*3/uL (0.00-0.03); Imm Gran Pct Auto 1.7 % (0.0-0.4); Lymphocytes Absolute Auto 1.3 X10*3/uL (1.2-4.9); Mean Corpuscular HGB Conc 31.1 g/dl (31.0-35.0); Mean Corpuscular Hemoglobin 26.4 pg (27.0-33.0); Mean Corpuscular Volume 84.8 fL (80.0-98.0); Mean Platelet Volume 10.6 fL (9.4-12.3); Monocytes Percent Auto 10.8 % (2-11); Neutrophils Absolute Auto 6.4 x10*3/uL (2.0-8.3); Neutrophils Percent Auto 69.5 % (45-73); Platelet Count 275 X10*3/uL (160-400); Red Blood Count 3.94 X10*6/uL (4.20-5.50); Red Cell Distribution Width 14.4 % (11.0-16.0); White Blood Count 9.2 X10*3/uL (4.8-10.8)
[2021-12-28 06:32] LABS: Alanine Aminotransferase 59 U/L (0-31); Albumin Level 2.9 g/dL (3.5-5.0); Alkaline Phosphatase 63 U/L (39-117); Anion Gap 14 (12-20); Aspartate Amino Transferase 42 U/L (5-31); Bilirubin Total 0.2 mg/dL (0.0-1.0); Blood Urea Nitrogen 6 mg/dL (9-16); Calcium 7.9 mg/dL (8.4-10.2); Carbon Dioxide 30 mmol/L (22-29); Chloride 102 mmol/L (96-108); Creatinine Clr Calc Pharmacy 86.6; Estimated Glomerular Filt Rate > 60; Glucose Random 151 mg/dL (60-115); Potassium 3.8 mmol/L (3.3-5.1); Sodium 142 mmol/L (135-145); Total Protein 5.7 g/dL (6.5-8.0)
[2021-12-28] MEDS: Enoxaparin Sodium 80 MG/0.8 ML SYRINGE SUBCUT ×2 (08:01→19:44)
[2021-12-28] MEDS: modafiniL 100 MG TABLET 200 MG G-TUBE (08:02)
[2021-12-28] MEDS: 0.9 % Sodium Chloride Flush 3 ML SYRINGE IVFLUSH ×2 (08:02→14:55)
[2021-12-28] MEDS: levETIRAcetam Oral Soln 500 MG/5 ML 1000 MG G-TUBE ×2 (08:14→19:43)
[2021-12-28] MEDS: Albumin Human 25 % 100 ML IV ×2 (08:15→09:13)
[2021-12-28] MEDS: Chlorhexidine Gluc Oral Rinse 15 ML MOUTHWASH BUCCAL ×3 (08:18→19:43)
[2021-12-28] MEDS: dexmedeTOMIDidine HCL/NS 400 MCG/100 ML INFUS..BTL IVCONT (10:22)
--- NOTE | 2021-12-28 10:49 | PM.CCPN ---
Subjective Subjective Date of Service: 12/28/21 Interval History: Mrs. Ferro was transferred to ICU on Dec 21 of hypercarbic respiratory failure. The patient is a 66 year old female w PMHx brain cancer s/p chemo and radiation, DVT, hypertension, recurrent seizures (on Keppra), CVA, and TERI but noncompliant w CPAP.? For the last three years, she?s had progressive refractory torticollis with her head bent over more and more to the right.? She?s seen [facility] neurologists in [place], and had Botox tx which made her worse.? Last time she saw the neurologist, he said that there was nothing more that they could do.? (Spoke to daughter Jessie about all this today (pronounced Marielena)).? Her head is now bent over all the time, almost to her shoulder.? See pics below.? The daughter also told me today that her mother?s endurance had been declining over about the last month. The first pic below is about a year ago. Second pic is a month or so. Next pics are this hospitalization. the patient has never been intubated or been in the ICU before. The patient lives w her .? According to the patient?s son, she needs help with all her ADLs.? When she walks, she holds on to someone.? ?She eats by herself.? Her is a suction plate roller hand and they leave the house almost every day to go to judaism.? Her head is now starting to impact her posture, such that her trunk is now increasingly bent over to the right when she walks. The patient was BIBA to the ED on Dec 20 with altered MS and near syncopal episode.? She had increasing sleepiness for maybe a day prior, along w URI sx.? At the scene, SpO2 was 60% on room air with labored breathing.? The patient does not use oxygen at home.? According to family this was very far from her baseline -- the patient is usually ambulatory w/ assist and able to carry on basic conversations.? The patient had upper respiratory symptoms such as cough and congestion.? She also mentioned that she recently stopped her anticoagulant and was c/o calf pain. In the ED, she was afebrile.? Sat was 99% on NRBFM, with mild resp distress, insp and exp wheezing.? Not following commands or answering questions.? White count was 13, PT was 22/1.9, bicarb was 34, BUN/creatinine 15/0.7, BNP 175 (was normal last year), albumin was 3.6.? Prior serum bicarb levels in ranged 30-41, and she was not on Lasix. Head CT showed no acute pathology; ?there was unchanged bifrontal , right basal ganglia and right parieto-occipital encephalomalacia. ?CTPA showed no evidence for pulmonary emboli.? The heart size and great vessels were normal.? No evidence of right heart strain.? There was minor bilat LL atelectasis.? Abdom CT showed no acute intra-abdominal pressure.? At one point in the ED, the patient was having upper extremity contractions and appeared to be having a seizure.? Versed was given.? The patient was admitted to Medicine with the diagnosis of seizures.? She was loaded w Keppra. ?Venous duplex showed very small amount of echogenic, noncompressible nonocclusive thrombus in the left popliteal vein, could represent chronic thrombus related to prior DVT.? She was given bid Lovenox. The next day (Dec 21), the patient was drowsy and minimally responsive.? On 2.5 L nasal cannula, the sat was 93%.? ABG showed 7.23/125/41/18.? The patient was intubated and transferred to the ICU.? EEG done off propofol on Dec 22 showed severe diffuse background slowing, consistent with a diffuse encephalopathic process.? No epileptiform discharges were seen.? Ultimately, the patient's Keppra level from the ED came back at 75.? The sputum was purulent, so the patient was treated with vanco and meropenam.? On 12/23, the sputum grew 4+ strep pneumo, abx were changed to ceftriaxone. Over the last several days, the patient?s MS has lightened up when she?s not sedated, and she?s been doing PSV trials, but hasn?t been able to last long enough for safe extubation. Yesterday, we turned the patient?s midazolam infusion off.? She woke up later in the day and was fully appropriately responsive.? She was unable to straighten her head out.? We did PSV trials.? The best she was able to do was 12 cm; below that her respiratory rate, end-tidal CO2, and heart rate love.? We started her on a Lasix drip.? Overnight last night, she was resedated on propofol. This morning, we turned the propofol off.? She awoke fully and was appropriately responsive.? Also HR 78, SR.? BP 122/61. ?CVBG this morning 7.48/41/+6.? On PSV 12/30%/+5, RR was 10-18, Vt 200-700cc, Ve 3-6.5L, PIP 17cm, ETCO2 31mm, Sat 98%.? We got her down to as low as 10 cm of pressure support.? Minute volume ranged 4-5L, respiratory rate stayed 15-20.? CVBG on that setting 7.49/42/+8.? Tmax 100.2.? No obvious jugular venous distention with the head of the bed at about 20 degrees.? The patient's head is lying on her right shoulder, pretty close to at a right angle to the vertical axis.? Listening over her neck, the air passages clear.? Chest is clear to auscultation, with a normal expiratory phase.? Heart rate and rhythm are regular, with normal-sounding S1 and S2, with no murmur or gallops.? The abdomen is benign.? She has 1+ systemic edema. LABORATORY DATA:? Below.? Notably, white count is 10.7, BUN/creatinine 6/0.6 (on the Lasix drip), potassium 3.8, phosphorus 2.5. In order to see if a tracheostomy would be possible, we anesthetized her w propofol and paralyzed her with 80 mg Zemuron.? I was only able to move her head medially maybe 15-20?, to about a 45? angle w the vertical axis.? Furthermore, in the flexion/extension plane, she has almost no neck extension.? See pics below. Last pic above has my index finger on her sternal notch. IMPRESSION: 1. Mostly fixed torticollis.? Only limited neck flexibility.? My suspicion is that that very likely has something to do with her hypercarbia. 2. Underlying TERI.? The etiology of that is unclear, but likely has something to do with her torticollis. 3. Chronic CO2 retention/hypercarbic respiratory failure.? As demonstrated by her elevated serum bicarb levels. 4. Possible mild pneumococcal pneumonia (community-acquired).? Treated with ceftriaxone.? White count and temperature are normal for days now.? The ceftriaxone was discontinued yesterday. 5. Acute hypercarbic respiratory failure.? The lung parenchyma on her chest CT was very unimpressive so it?s highly unlikely that she had a significant pneumonia.? But it?s possible that the pneumococcus was a causative factor in her acute hypercarbic respiratory failure. ??? She failed a weaning trial Monday.? We started her on Provigil this morning, and she was certainly more awake after the sedation was d/c?d, compared to the prior day. 6. Possible seizures.? Keppra level was high on admission.? We change her over to Keppra 1000 mg per GT bid. 7. Renal indices are low, still has 1+ edema, BNP was high, and she has resp failure.? Continuing to diurese. 8. DVT left leg.? Presumably chronic.? Keeping her on bid Lovenox. 9. Hypokalemia.? Repleting. 10. Nutrition.? On Jevity at goal rate. Her torticollis is a major problem, bec if we extubate her, it could prevent intubation, and worse, emergent MONICA surgical airway would be impossible.? Discussed at great length with family and with Dr. Wood.? I sent him pictures and we will talk again tomorrow. Critical Care Time (minutes): 120 Physical Exam Vital Signs: Vital Signs: Last Vital Signs Temp 98.0 F 12/28/21 08:00 Pulse 84 12/28/21 10:00 Resp 20 12/28/21 10:00 BP 140/66 H 12/28/21 10:00 Pulse Ox 92 12/28/21 10:00 O2 Del Method 12/28/21 10:00 O2 Flow Rate 2 12/21/21 14:06 FiO2 30 12/28/21 10:00 Oxygen Flow Rate 15 12/20/21 17:07 BMI result Body Mass Index 31.7 Objective Data Labs CBC & Chem 7: 12/28/21 05:13 12/28/21 05:13 Labs: Laboratory Results - last 24 hr 12/27/21 12/27/21 12/28/21 14:51 17:22 05:12 WBC RBC Hgb Hct MCV MCH MCHC RDW Plt Count MPV Immature Gran % (Auto) Neut % (Auto) Lymph % (Auto) Riley % (Auto) Eos % (Auto) Baso % (Auto) Lymph # (Auto) Riley # (Auto) Eos # (Auto) Baso # (Auto) Abs Immat Gran (auto) Absolute Neuts (auto) Absolute Nucleated RBC Nucleated RBC % (auto) VBG pH 7.45 H 7.48 H VBG pCO2 38 41 VBG pO2 71 53 VBG HCO3 27 H 30 H VBG O2 Saturation 94.0 82.0 VBG Base Excess 3.4 6.7 Sodium Potassium Chloride Carbon Dioxide Anion Gap BUN Creatinine Estim Creat Clear Calc Estimated GFR Random Glucose Calcium Total Bilirubin AST ALT Alkaline Phosphatase Total Protein Albumin Ur Random Sodium 44.0 12/28/21 12/28/21 05:13 05:13 WBC 9.2 RBC 3.94 L Hgb 10.4 L Hct 33.4 L MCV 84.8 MCH 26.4 L MCHC 31.1 RDW 14.4 Plt Count 275 MPV 10.6 Immature Gran % (Auto) 1.7 H Neut % (Auto) 69.5 Lymph % (Auto) 14.0 L Riley % (Auto) 10.8 Eos % (Auto) 3.5 Baso % (Auto) 0.5 Lymph # (Auto) 1.3 Riley # (Auto) 1.0 Eos # (Auto) 0.3 Baso # (Auto) 0.1 Abs Immat Gran (auto) 0.16 H Absolute Neuts (auto) 6.4 Absolute Nucleated RBC 0.000 Nucleated RBC % (auto) 0.0 VBG pH VBG pCO2 VBG pO2 VBG HCO3 VBG O2 Saturation VBG Base Excess Sodium 142 Potassium 3.8 Chloride 102 Carbon Dioxide 30 H Anion Gap 14 BUN 6 L Creatinine 0.66 Estim Creat Clear Calc 86.6 Estimated GFR > 60 Random Glucose 151 H Calcium 7.9 L Total Bilirubin 0.2 AST 42 H D ALT 59 H Alkaline Phosphatase 63 Total Protein 5.7 L Albumin 2.9 L Ur Random Sodium Microbiology Microbiology Results: Microbiology 12/20/21 18:26 Blood - Venous Blood Culture - Final No growth after 5 days. 12/20/21 17:27 Blood - Venous Blood Culture - Final No growth after 5 days. 12/21/21 Unknown Sputum - Suctioned Gram Stain - Final 12/21/21 Unknown Sputum - Suctioned Sputum Culture - Final Streptococcus pneumoniae Quality Stroke Does the patient have a stroke diagnosis?: No VTE Prior VTE?: Yes VTE Risk Level:: Medical - moderate - high VTE Device Contraindication: Treatment Not Indicated VTE Drug Contraindication: N/A - Med Ordered Critical Care Time Critical Care Time (minutes): 120
--- NOTE | 2021-12-28 11:04 | P.CDIC_ITS ---
CDI Concurrent Query Documentation Clarification: PHYSICIAN'S DOCUMENTATION REQUEST Date of Query: 12/28/21 1104 Patient Name: Juani Ferro Admit Date: 12/20/21 Dear Doctor, A review of the medical record indicates additional documentation may be needed. Please review below and update the documentation accordingly. Clinical Indicators: On 12/21/21 the provider indicated a diagnosis of a DVT. Is there further clarification/specificity that correlates with the findings below: Risk Factors/Clinical Indicators/Treatments Per provider note on 12/21: DVT noted on venous duplex.? Does have chronic DVT but unclear if she was treated in the past Per venous duplex on 12/20: Very small amount of echogenic, noncompressible nonocclusive thrombus in the left popliteal vein. This may represent chronic thrombus related to prior DVT. ? Based on the above, could you clarify?in the Progress Notes?the appropriate diagnosis, if significant, that supports the above abnormalities and additional evaluation, monitoring, and/or treatment rendered: ? * Acute on chronic DVT?(please specify site) * Chronic DVT?(please specify site) * Other?(please specify) * Unable to determine? Use of terms such as suspected, likely, concern for, or probable (associated with a specific diagnosis that is being evaluated, monitored, or treated as if it exists) are acceptable and can be coded in the inpatient setting, when documented at the time of discharge. Thank you, Karen Amin MS, RN, CCRN Extension: [phone] Please use your independent medical judgment in providing your response. THIS QUERY IS PART OF THE PERMANENT MEDICAL RECORD Provider Response: Other Other Diagnosis: Chronic DVT
[2021-12-28] MEDS: propofoL 1,000 MG/100 ML VIAL 5.24 MG IVCONT (12:01)
[2021-12-28 13:41] LABS: VBG Base Excess 8.3 mmol/L; VBG HCO3 32 mmol/L (22-26); VBG pCO2 42 mmHg; VBG pH 7.49 (7.32-7.43); VBG pO2 53 mmHg
[2021-12-28] MEDS: propofoL 200 MG/20 ML VIAL 30 MG IVPUSH (15:47)
[2021-12-28] MEDS: fentaNYL citrate/PF 100 MCG/2 ML VIAL 50 MCG IVPUSH (15:48)
[2021-12-28] MEDS: Rocuronium Bromide 50 MG/5 ML VIAL 80 MG IVPUSH (15:53)
[2021-12-28] MEDS: acetaZOLAMIDE sodium 500 MG VIAL IVPUSH ×2 (16:34→19:45)
--- NOTE | 2021-12-28 18:47 | PC.NURSE ---
PATIENT TRIALED ON SEDATION VACATION AND PS SETTING ON VENT. PATIENT FAILED REQUIRING PRECEDEX, SEE EMAR. PRECEDEX WAS EVENTUALLY HELD PER MD ORDER AND REPLACED WIHT PROPOFOL AND TITRATED UNTIL ADEQUATE LEVEL OF SEDATION WAS OBTAINED, SEE EMAR. PER MD TO CHECK THE FLEXIBILITY OF NECK FOR POSSIBLE TRACHEOTOMY PLACEMENT PATIENT WAS GIVEN 30 MG IVP PROPOFOL, 50MG IVP FENTANYL, AND 80 MG IVP ROCURONIUM, WELL INCREASING PROPOFOL DRIP SEE EMAR. PATIENT AND FAMILY UPDATED ON HEALTH STATUS AND PLAN OF CARE, REPOSITIONED Q2HR, ROUTINE ORAL CARE PROVIDED, AND BATHED.
[2021-12-28 19:46] LABS: Venous Blood Gas Refer to POC result
[2021-12-28] MEDS: Potassium Chloride Packet 20 MEQ PACKET 40 MEQ G-TUBE ×2 (20:58→22:34)
[2021-12-28] MEDS: Sodium,Potassium Phosphates POWD.PACK 2 PACKET PO (23:59)
[2021-12-29] VITALS (34 sets, daily range): BP systolic 90–126; BP diastolic 44–71; PULSE 65–90; RESP 10–15; TEMP 34.8–37.6; O2SAT 92–99; BMI 32.1
[2021-12-29] MEDS: 0.9 % Sodium Chloride Flush 3 ML SYRINGE IVFLUSH ×3 (00:43→15:03)
[2021-12-29] MEDS: propofoL 1,000 MG/100 ML VIAL 20.98 MG IVCONT (02:33)
[2021-12-29 05:10] LABS: VBG Base Excess 2.9 mmol/L; VBG HCO3 28 mmol/L (22-26); VBG pCO2 44 mmHg; VBG pO2 53 mmHg
[2021-12-29 05:45] LABS: Venous Blood Gas Refer to POC result
[2021-12-29 05:46] LABS: Anion Gap 11 (12-20); Blood Urea Nitrogen 7 mg/dL (9-16); Calcium 8.5 mg/dL (8.4-10.2); Carbon Dioxide 28 mmol/L (22-29); Chloride 107 mmol/L (96-108); Creatinine Clr Calc Pharmacy 82.8; Estimated Glomerular Filt Rate > 60; Glucose Random 129 mg/dL (60-115); Magnesium 2.3 mg/dL (1.6-2.6); Phosphorus 4.1 mg/dL (2.7-4.5); Potassium 4.6 mmol/L (3.3-5.1); Sodium 141 mmol/L (135-145)
[2021-12-29] MEDS: propofoL 1,000 MG/100 ML VIAL 15.73 MG IVCONT ×3 (07:46→18:17)
[2021-12-29] MEDS: Chlorhexidine Gluc Oral Rinse 15 ML MOUTHWASH BUCCAL ×3 (07:47→21:40)
[2021-12-29] MEDS: Enoxaparin Sodium 80 MG/0.8 ML SYRINGE SUBCUT ×2 (07:51→19:19)
[2021-12-29] MEDS: Furosemide 200 MG in 0.9 % Sodium Chloride 80 ML IVCONT ×2 (07:57→17:22)
--- NOTE | 2021-12-29 08:44 | MHC.CLN ---
F/U PT REMAINS INTUBATED TOLERATING TF AT FS PER NSG WITH LOW RESIDUALS PT RECEIVING TF JEVITY 1.0 AT MAX GOAL RATE 60ML/HR WITH 240ML FREE WATER FLUSHES Q 8 HRS PROVIDES 1526KCALS (1942kcals with sedation; 30KCALS/KG BASED ON CMW), 64G PROTEIN (1.0G/KG), 1922ML TOTAL FREE WATER FROM FORMULA AND FLUSHES (30ML/KG) CONTINUE TO MONITOR TOLERANCE, RESIDUALS AND LYTES
[2021-12-29] MEDS: acetaZOLAMIDE sodium 500 MG VIAL IVPUSH (10:21)
[2021-12-29] MEDS: levETIRAcetam Oral Soln 500 MG/5 ML 1000 MG G-TUBE ×2 (10:21→21:40)
--- NOTE | 2021-12-29 12:08 | P.PNCC_ITS ---
Subjective Subjective Date of Service: 12/29/21 Interval History: Mrs. Ferro was transferred to ICU on Dec 21 of hypercarbic respiratory failure. The patient is a 66 year old female w PMHx brain cancer s/p chemo and radiation, DVT, hypertension, recurrent seizures (on Keppra), CVA, and TERI but noncompliant w CPAP.? For the last three years, she?s had progressive refractory torticollis with her head bent over more and more to the right.? She?s seen [facility] neurologists in [place], and had Botox tx which made her worse.? Last time she saw the neurologist, he said that there was nothing more that they could do.? (Spoke to daughter Jessie about all this today (pronounced Marielena), cell phone [phone]).? The patient?s head is now bent over all the time, almost to her shoulder.? See the pictures I took in yesterday?s progress note.? The daughter also told me today that her mother?s endurance had been declining over about the last month. The patient lives w her .? According to the patient?s son, she needs help with all her ADLs.? When she walks, she holds on to someone.? ?She eats by herself.? Her is a machine burrer and they leave the house almost every day to go to sabianism.? Her head is now starting to impact her posture, such that her trunk is now increasingly bent over to the right when she walks. The patient was BIBA to the ED on Dec 20 with altered MS and near syncopal episode.? She had increasing sleepiness for maybe a day prior, along w URI sx.? At the scene, SpO2 was 60% on room air with labored breathing.? The patient does not use oxygen at home.? According to family this was very far from her baseline -- the patient is usually ambulatory w/ assist and able to carry on basic conversations.? The patient had upper respiratory symptoms such as cough and congestion.? She also mentioned that she recently stopped her anticoagulant and was c/o calf pain. In the ED, she was afebrile.? Sat was 99% on NRBFM, with mild resp distress, insp and exp wheezing.? Not following commands or answering questions.? White count was 13, PT was 22/1.9, bicarb was 34, BUN/creatinine 15/0.7, BNP 175 (was normal last year), albumin was 3.6.? Prior serum bicarb levels in ranged 30-41, and she was not on Lasix. Head CT showed no acute pathology; ?there was unchanged bifrontal , right basal ganglia and right parieto-occipital encephalomalacia. ?CTPA showed no evidence for pulmonary emboli.? The heart size and great vessels were normal.? No evidence of right heart strain.? There was minor bilat LL atelectasis.? Abdom CT showed no acute intra-abdominal pressure.? At one point in the ED, the patient was having upper extremity contractions and appeared to be having a seizure.? Versed was given.? The patient was admitted to Medicine with the diagnosis of seizures.? She was loaded w Keppra. ?Venous dupl ex showed very small amount of echogenic, noncompressible nonocclusive thrombus in the left popliteal vein, could represent chronic thrombus related to prior DVT.? She was given bid Lovenox. The next day (Dec 21), the patient was drowsy and minimally responsive.? On 2.5 L nasal cannula, the sat was 93%.? ABG showed 7.23/125/41/18.? The patient was intubated and transferred to the ICU.? EEG done off propofol on Dec 22 showed severe diffuse background slowing, consistent with a diffuse encephalopathic process.? No epileptiform discharges were seen.? Ultimately, the patient's Keppra level from the ED came back at 75.? The sputum was purulent, so the patient was treated with vanco and meropenam.? On 12/23, the sputum grew 4+ strep pneumo, abx were changed to ceftriaxone. Over the last several days, the patient?s MS has lightened up when she?s not sedated, and she?s been doing PSV trials, but hasn?t been able to last long enough for safe extubation. Over the last couple of days, when sedation is turned off, the patient wakes up well and is fully and appropriately responsive.? She is barely able to move her head at all.? With PSV trials, the best we got down to was 10cm.? We started her on a Lasix drip. In order to see if a tracheostomy would be possible, yesterday we anesthetized her w propofol and paralyzed her with 80 mg Zemuron.? I was only able to move her head medially maybe 15-20?, to about a 45? angle w the vertical axis.? Furthermore, in the flexion/extension plane, she has almost no neck extension.? See the pics included in my progress note from yesterday. This morning, she?s on propofol 30ug, Lasix 2mg/hr, and Levophed 0.02ug.? She?s well sedated.? HR 71, SR.? BP 108/58.? On ACPC rate 12, pressures 16/5, 30%, RR is 12, Ve 4.8L, PIP 21cm, ETCO2 27mm, Sat 100%.? CVBG 7.40/44/+2.? Afebrile.? No obvious jugular venous distention with the head of the bed at about 20 degrees.? The patient's head is lying on her right shoulder, pretty close to at a right angle to the vertical axis.? Listening over her neck, the air passages clear.? Chest is clear to auscultation, with a normal expiratory phase.? Heart rate and rhythm are regular, with normal-sounding S1 and S2, with no murmur or gallops.? The abdomen is benign.? She has <1+ systemic edema. U/O last 24hrs 3785, net neg 1.2 liters.? Net positive for the hospitalization 7.9 liters. LABORATORY DATA:? Below.? Notably, BUN/creatinine 7/0.6 (on the Lasix drip), potassium and phosphorous have normalized. IMPRESSION: 1. Mostly fixed torticollis.? Only limited neck flexibility.? My suspicion is that that very likely has something to do with her hypercarbia. 2. Underlying TERI.? The etiology of that is unclear, but likely has something to do with her torticollis. 3. Chronic CO2 retention/hypercarbic respiratory failure.? As demonstrated by her elevated serum bicarb levels. 4. Possible mild pneumococcal pneumonia (community-acquired).? Treated with ceftriaxone.? White count and temperature are normal for days now.? The ceftriax one was discontinued yesterday. 5. Acute hypercarbic respiratory failure.? The lung parenchyma on her chest CT was very unimpressive so it?s highly unlikely that she had a significant pneumonia.? Still it?s possible that the pneumococcus was a causative factor in her acute hypercarbic respiratory failure. ??? She?s been able to tolerate moderate levels of PSV so far, but I?ve been hesitant to push her further because extubation without the option of a surgical MONICA airway is not in the cards. 6. Possible seizures.? Keppra level was high on admission.? We changed her over to Keppra 1000 mg per GT bid. 7. Renal indices are low, still has about 1+ edema, BNP was high, and she has resp failure.? Continuing to diurese. ?Increase Lasix to 3mg/hr. 8. DVT left leg.? Presumably chronic.? Keeping her on bid Lovenox. 9. Metabolic alkalosis.? No doubt 2? Lasix.? Resolved with Diamox. 10. Hypokalemia.? Repleted. 11. Nutrition.? On Jevity at goal rate. Her torticollis is the major problem, bec if we extubate her, it could prevent reintubation, and worse, emergent MONICA surgical airway would be impossible.? Discussed at great length with family and with Dr. Wood, our thoracic surgeon.? I sent him the above mentioned pictures with the patient?s ?s and daughter?s permission.? We finally connected this morning and my feeling was that she would have to be transferred out to a tertiary center to be managed safely.? He agreed.? If a tracheostomy were to be needed, it would be a mediastinal trach, requiring a median sternotomy.? Since yesterday, I?ve kept the patient sedated for her comfort until we can accomplish the transfer. I spoke this afternoon with Dr. Lakesha Sheffield, the neurologist from [facility] who was caring for the patient?s torticollis.? (Office telephone [phone]; cell phone [phone], or [phone].)? Last time she saw the patient was in June.? She understands the situation and agrees that transfer is warranted.? She referred me to the [facility] transfer line to see if they would accept the patient.? I spoke to the intake nurse and they are waiting to find the covering ICU physician. ADDENDUM:? Mult conversations with [facility] staff.? I spoke at length this afternoon with Dr. Sheila Edwards (cell [phone]) from the Medical ICU at [facility] and Dr. Ochoa from the Surgical ICU.? They understand the situation completely and the need to plan for complications after extubation.? I also indicated my opinion that even if she?s extubated uneventfully, my suspicion is that ultimately, maybe a month or a few months down the line, she will require a tracheostomy. ? The patient has been accepted for transfer to one of the ICUs at the [facility].? (Fax line [phone].)? There are no beds right now but they hope they?ll have a bed for her within the next day or two.? Until then the plan is to keep her lightly sedated. I?ve discussed all the above at length with the family and they are satisfied.? All questions answered. Critical care time: ?140 min+ Critical Care Time (minutes): 140 Physical Exam Vital Signs: Vital Signs: Last Vital Signs Temp 99.7 F 12/29/21 03:55 Pulse 76 12/29/21 11:00 Resp 13 12/29/21 11:00 BP 112/64 12/29/21 11:00 Pulse Ox 96 12/29/21 11:00 O2 Del Method 12/29/21 11:00 O2 Flow Rate 2 12/21/21 14:06 FiO2 30 12/29/21 11:06 Oxygen Flow Rate 15 12/20/21 17:07 BMI result Body Mass Index 32.1 Objective Data Labs CBC & Chem 7: 12/28/21 05:13 12/29/21 04:55 Labs: Laboratory Results - last 24 hr 12/28/21 12/29/21 12/29/21 13:34 04:55 05:03 VBG pH 7.49 H 7.40 VBG pCO2 42 44 VBG pO2 53 53 VBG HCO3 32 H 28 H VBG O2 Saturation 83.0 80.0 VBG Base Excess 8.3 2.9 Sodium 141 Potassium 4.6 D Chloride 107 Carbon Dioxide 28 Anion Gap 11 L BUN 7 L Creatinine 0.69 Estim Creat Clear Calc 82.8 Estimated GFR > 60 Random Glucose 129 H Calcium 8.5 D Phosphorus 4.1 Magnesium 2.3 Microbiology Microbiology Results: Microbiology 12/20/21 18:26 Blood - Venous Blood Culture - Final No growth after 5 days. 12/20/21 17:27 Blood - Venous Blood Culture - Final No growth after 5 days. 12/21/21 Unknown Sputum - Suctioned Gram Stain - Final 12/21/21 Unknown Sputum - Suctioned Sputum Culture - Final Streptococcus pneumoniae Quality Stroke Does the patient have a stroke diagnosis?: No VTE Prior VTE?: Yes VTE Risk Level:: Medical - moderate - high VTE Device Contraindication: Treatment Not Indicated VTE Drug Contraindication: N/A - Med Ordered Critical Care Time Critical Care Time (minutes): 150
--- NOTE | 2021-12-29 14:13 | MHC.CM.PN ---
No change in CM plan @ this time. CM will continue to follow for d/c planning needs.
--- NOTE | 2021-12-29 19:07 | PC.NURSE ---
PT vent settings PC /30% in morning, changed to /21% 08:00-16:00 Pt alert and eyes open to name, able to follow commands of hand grasp and moving toes weakly. 17:00 pt more drowsy, eyes open to name, answers yes or no questions. positive cough, negative gag, PERRLA Pt on lasix gtt @2 mg/hr with pale yellow urine output (75-100 ml/hr) Plan for pt is transfer to [facility] in [place] when bed is available. MD in contact with facility, pt has been accepted and awaiting bed. This RN provided a short report and PMH to [facility] charge nurse. Further nurse to nurse report required when a bed becomes available.
[2021-12-30] VITALS (33 sets, daily range): BP systolic 95–173; BP diastolic 37–73; PULSE 58–93; RESP 10–20; TEMP 5–38.3; O2SAT 90–100; BMI 30.5
[2021-12-30] MEDS: propofoL 1,000 MG/100 ML VIAL 15.73 MG IVCONT ×2 (00:41→07:27)
[2021-12-30] MEDS: 0.9 % Sodium Chloride Flush 3 ML SYRINGE IVFLUSH ×3 (00:42→16:04)
[2021-12-30 05:05] LABS: VBG Base Excess 3.9 mmol/L; VBG HCO3 29 mmol/L (22-26); VBG pCO2 46 mmHg; VBG pO2 54 mmHg
[2021-12-30 05:43] LABS: Anion Gap 14 (12-20); Blood Urea Nitrogen 9 mg/dL (9-16); Calcium 8.5 mg/dL (8.4-10.2); Carbon Dioxide 28 mmol/L (22-29); Chloride 105 mmol/L (96-108); Creatinine Clr Calc Pharmacy 78.8; Estimated Glomerular Filt Rate > 60; Glucose Random 128 mg/dL (60-115); Magnesium 2.4 mg/dL (1.6-2.6); Phosphorus 3.7 mg/dL (2.7-4.5); Potassium 4.1 mmol/L (3.3-5.1); Sodium 143 mmol/L (135-145)
[2021-12-30 05:46] LABS: Venous Blood Gas Refer to POC result
[2021-12-30] MEDS: Enoxaparin Sodium 80 MG/0.8 ML SYRINGE SUBCUT ×2 (08:43→20:53)
[2021-12-30] MEDS: levETIRAcetam Oral Soln 500 MG/5 ML 1000 MG G-TUBE ×2 (08:43→20:53)
[2021-12-30] MEDS: Chlorhexidine Gluc Oral Rinse 15 ML MOUTHWASH BUCCAL ×3 (08:43→20:53)
--- NOTE | 2021-12-30 11:51 | P.PNCC_ITS ---
Subjective Subjective Date of Service: 12/30/21 Interval History: Mrs. Ferro was transferred to ICU on Dec 21 of hypercarbic respiratory failure. Past medical hx was obtained from daughter Jessie (claudia Peguero), cell phone [phone]. The patient is a 66 year old female w PMHx of brain cancer (grade 3 anaplastic astrocytoma) in 2009, s/p surgery and chemo and radiation at [facility] in [place].? The tumor came back in 2011 but was dormant, and she had a repeat surgery.? MRI every two years thereafter has been negative.? But she?s had periodic seizures since then, last was this past October.? The sz are controlled w Keppra.? Also PMHx of HTN, and a CVA 4-5 yrs ago, and had a DVT at that time, was on anticoagulation for a time. For the last three years, she?s had progressive refractory torticollis with her head bent over more and more to the right.? Coincidentally, she developed TERI.? Been variably compliant with CPAP. ?She?s seen [facility] neurologists, and was referred to Dr. Sheffield at the [facility] for Botox tx which made her worse.? Last time she saw Dr. Sheffield in June, she said that there was nothing more that they could do. ?The patient?s head is now bent over all the time, almost to her shoulder.? See the pictures that I took in my progress note from Dec 28.? The daughter also told me today that her mother?s endurance has been declining over about the last month. The patient lives w her .? She needs help with all her ADLs.? She is able to carry out basic conversations. ?When she walks, she doesn?t use any assistive device but holds on to someone.? ?She eats by herself.? 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 Her head is now starting to impact her posture, such that her trunk is now increasingly bent over to the right when she walks. HISTORY OF PRESENT ILLNESS: ?The patient was BIBA to the ED on Dec 20 with altered MS and near syncopal episode.? She had increasing sleepiness for maybe a day prior to that, along w URI sx.? At the scene, EMS found SpO2 was 60% on room air with labored breathing.? The patient does not use oxygen at home. In the ED, the patient was afebrile.? Sat was 99% on NRBFM, with mild resp distress, insp and exp wheezing.? Not following commands or answering questions.? White count was 13, PT was 22/1.9, bicarb was 34, BUN/creatinine 15/0.7, BNP 175 (was normal last year), albumin was 3.6.? Prior serum bicarb levels in ranged 30-41, and she was not on any diuretic. Head CT showed no acute pathology; ?there was unchanged bifrontal , right basal ganglia and right parieto-occipital encephalomalacia. ?CTPA showed no evidence for pulmonary emboli.? The heart size and great vessels were normal.? No evidence of right heart strain.? No pulmonary infiltrates other than minor bilat LL atelectasis.? Abdom CT showed no acute intra-abdominal process. At one point in the ED, the patient was having upper extremity contractions and appeared like she might be having a seizure.? Versed was given.? The patient was admitted to Medicine with the diagnosis of seizures.? She was loaded w Keppra, altho subsequent Keppra level on admission to the ED came back at 75. ?Venous duplex showed very small amount of echogenic, noncompressible nonocclusive thrombus in the left popliteal vein, could represent chronic thrombus related to prior DVT.? She was started on bid Lovenox. The next day (Dec 21), the patient was drowsy and minimally responsive.? On 2.5 L nasal cannula, the sat was 93%.? ABG showed 7.23/125/41/18.? The patient was intubated without difficulty using a glidescopy hyperangulated blade.? She was transferred to the ICU. EEG done off propofol on Dec 22 showed severe diffuse background slowing, consi stent with a diffuse encephalopathic process.? No epileptiform discharges were seen.? The sputum was purulent, so the patient was treated with vanco and meropenam.? On 12/23, the sputum grew 4+ strep pneumo, abx were changed to ceftriaxone. Over the last several days, the patient?s MS has lightened up such that when she?s not sedated, she is consistently appropriately responsive.? She is barely able to move her head all.? She has been doing PSV trials, but hadn?t been able to last long enough for safe extubation.? With PSV trials, the best we got down to was 10cm.? We started her on a Lasix drip. In order to see if a tracheostomy would be possible if it were necessary, on Dec 28 yesterday we anesthetized her w propofol and paralyzed her with 80 mg Zemuron.? I was only able to move her head medially maybe 15-20?, to at best a 45? angle w the vertical axis.? Furthermore, in the flexion/extension plane, she had almost no neck movement at all.? See the pics included in my progress note from that day. I discussed that at great length with family and with Dr. Wood, our thoracic surgeon.? With the patient?s ?s and daughter?s permission, I sent him the above mentioned pictures.? My feeling was that she would have to be transferred out to a tertiary center to be managed safely.? He agreed, given that if a trac heostomy were to be needed, it would be a mediastinal trach, requiring a median sternotomy.? So since then, I?ve kept the patient sedated for her comfort until we can accomplish the transfer.? We?re waiting for a bed at the [facility] (see below) CURRENT MEDS: Lasix 2mg/hr Levophed 0.05ug Propofol 20 ug Lovenox 80mg bid Keppra 1000 mg bid This morning, on propofol 20ug, she?s arousable and responsive.? HR 74, SR.? BP 120/52.? On ACPC mode, rate 8, pressures 16/5, 21%, RR is 12, Vt 410cc, Ve 5L, PIP 22cm, ETCO2 29mm, Sat 90%.? CVBG 7.40/46/+3.? Afebrile.? No obvious jugular venous distention with the head of the bed at about 20 degrees.? The patient's head is lying on her right shoulder, pretty close to at a right angle to the vertical axis.? Listening over her neck, the air passages clear.? Chest is clear to auscultation, with a normal expiratory phase.? Heart rate and rhythm are regular, with normal-sounding S1 and S2, with no murmur or gallops.? The abdomen is benign.? She has <1+ systemic edema. U/O last 24hrs 2655cc, net neg 190cc.? Net positive for the hospitalization 7.7 liters. LABORATORY DATA:? Below.? Notably, BUN/creatinine 9/0.7 (on the Lasix drip), potassium and phosphorous have normalized. IMPRESSION: 1. Mostly fixed torticollis.? Only limited neck flexibility.? My suspicion is that that very likely has something to do with her hypercarbia. 2. Underlying TERI.? The etiology of that is unclear, but also likely has something to do with her torticollis. 3. Chronic CO2 retention/hypercarbic respiratory failure.? As demonstrated by her elevated serum bicarb levels. 4. Possible mild pneumococcal pneumonia (community-acquired).? Treated with ceftriaxone Dec 23-.? White count and temperature are normal for days now. 5. Acute hypercarbic respiratory failure.? She may well have chronic hypercarbia, but the etiology of her acute decompensation is unclear.? The lung parenchyma on her chest CT was unimpressive so it?s highly unlikely that she had a significant pneumonia, but it?s possible that the pneumococcus was a causative factor.? COVID, RSV, and Influenza PCRs were negative.? An obvious question is, Did her torticollis finally reach a severity at which she finally could no longer compensate? She?s been able to tolerate moderate levels of PSV so far, but I?ve been hesitant to push her further because extubation without the option of a surgical MONICA airway is not in the cards. 6. Possible seizures.? Keppra level was high on admission.? We changed her over to Keppra 1000 mg per GT bid (she was on 1000 mg tid at home). 7. Renal indices are low, still has about 1+ edema, BNP was high, and she has resp failure.? Continuing to diurese.? Increase Lasix to 4mg/hr.? Recheck BNP tomorrow. 8. DVT left leg.? Presumably chronic.? Keeping her on bid Lovenox. 9. Metabolic alkalosis.? No doubt 2? Lasix.? Resolved with Diamox. 10. Hypokalemia.? Repleted. 11. Nutrition.? On Jevity at goal rate. Her torticollis is the major problem, bec if we extubate her, it could prevent reintubation, and worse, emergent MONICA surgical airway would be impossible. I spoke yesterda with Dr. Lakesha Sheffield, the neurologist from [facility] who was caring for the patient?s torticollis.? (Office telephone [phone]; cell phone [phone].)? Last time she saw the patient was in June.? She understands the situation and agrees that transfer is warranted. Had further multiple telephone d/w with [facility] transfer staff.? Spoke with Dr. Sheila Edwards (cell [phone]) from the Medical ICU at [facility] and Dr. Ochoa from the Surgical ICU.? They understand the situation completely and the need to plan for potential complications after extubation.? I also indicated my opinion that even if she?s extubated uneventfully, my suspicion is that ultimately, maybe a month or a few months down the line, she will require a tracheostomy. ? They accepted the patient for transfer to one of the ICUs at the [facility].? (Fax line [phone].)? There were no beds yesterday and we?ve been informed no beds right now but they hope they?ll have a bed for her later today or tomorrow.? Until then the plan is to keep her lightly sedated. Had further d/w family today and they are satisfied, they wish to go to [facility], as opposed to looking for another center.? All questions answered. Critical care time: ?70+ min Critical Care Time (minutes): 70 Physical Exam Vital Signs: Vital Signs: Last Vital Signs Temp 98.5 F 12/30/21 08:00 Pulse 66 12/30/21 11:00 Resp 12 12/30/21 11:00 BP 116/58 L 12/30/21 10:00 Pulse Ox 93 12/30/21 11:00 O2 Del Method 12/30/21 11:00 O2 Flow Rate 21 12/29/21 17:32 FiO2 21 12/30/21 11:09 Oxygen Flow Rate 15 12/20/21 17:07 BMI result Body Mass Index 30.5 Objective Data Labs CBC & Chem 7: 12/28/21 05:13 12/30/21 05:05 Labs: Laboratory Results - last 24 hr 12/30/21 12/30/21 04:58 05:05 VBG pH 7.40 VBG pCO2 46 VBG pO2 54 VBG HCO3 29 H VBG O2 Saturation 81.0 VBG Base Excess 3.9 Sodium 143 Potassium 4.1 Chloride 105 Carbon Dioxide 28 Anion Gap 14 BUN 9 Creatinine 0.73 Estim Creat Clear Calc 78.8 Estimated GFR > 60 Random Glucose 128 H Calcium 8.5 Phosphorus 3.7 Magnesium 2.4 Microbiology Microbiology Results: Microbiology 12/20/21 18:26 Blood - Venous Blood Culture - Final No growth after 5 days. 12/20/21 17:27 Blood - Venous Blood Culture - Final No growth after 5 days. 12/21/21 Unknown Sputum - Suctioned Gram Stain - Final 12/21/21 Unknown Sputum - Suctioned Sputum Culture - Final Streptococcus pneumoniae Quality Stroke Does the patient have a stroke diagnosis?: No VTE Prior VTE?: Yes VTE Risk Level:: Medical - moderate - high VTE Device Contraindication: Treatment Not Indicated VTE Drug Contraindication: N/A - Med Ordered Critical Care Time Critical Care Time (minutes): 60
[2021-12-30] MEDS: Lactulose 20 GM/30 ML SOLUTION 30 GM OG-TUBE ×2 (11:57→16:26)
[2021-12-30] MEDS: propofoL 1,000 MG/100 ML VIAL 10.49 MG IVCONT (13:41)
[2021-12-30] MEDS: Furosemide 200 MG in 0.9 % Sodium Chloride 80 ML IVCONT (15:47)
--- NOTE | 2021-12-30 16:17 | MHC.CM.PN ---
Pt continues to wait for [facility] bed availability to transfer for thoracic ICU care needs. Family in at bedside: pt continues on ventilatory support.
--- NOTE | 2021-12-30 19:13 | PC.NURSE ---
08:30 Propofol decreased to 20 mcg/kg/hr 09:30 [facility] nursing nuclear powerplant supervisor Amaya called for a pt status update, stated no bed available at this time and will call back tomorrow. LBM noted to be 12/26, notified and ordered lactulose 30mg via OG tube. 2 doses given as scheduled. Pt had copious, XL camilo liquid BM 18:30. Pt vent settings PC 8/16/5.0/21% Lasix gtt continued. Pt had pale yellow output 110 ml/hr for most of this shift. Urine output decreased to 25 ml/hr in last 3 hours of shift, next RN notified to monitor. Pt temperature 100.6F. Family teaching provided regarding cooling methods.
[2021-12-31] VITALS (29 sets, daily range): BP systolic 105–141; BP diastolic 56–75; PULSE 78–92; RESP 9–24; TEMP 5–37.7; O2SAT 93–100; BMI 29.9
[2021-12-31] MEDS: propofoL 1,000 MG/100 ML VIAL 7.87 MG IVCONT ×3 (00:53→21:37)
[2021-12-31] MEDS: 0.9 % Sodium Chloride Flush 3 ML SYRINGE IVFLUSH ×3 (00:53→16:31)
[2021-12-31 05:21] LABS: Hematocrit 37.1 % (37.0-47.0); Hemoglobin 11.5 g/dl (12.0-16.0); Mean Corpuscular Volume 83.7 fL (80.0-98.0); Mean Platelet Volume 9.4 fL (9.4-12.3); Platelet Count 333 X10*3/uL (160-400); Red Blood Count 4.43 X10*6/uL (4.20-5.50); Red Cell Distribution Width 14.4 % (11.0-16.0); White Blood Count 9.6 X10*3/uL (4.8-10.8)
[2021-12-31 05:25] LABS: VBG Base Excess 4.5 mmol/L; VBG HCO3 29 mmol/L (22-26); VBG pCO2 42 mmHg; VBG pH 7.44 (7.32-7.43); VBG pO2 47 mmHg
[2021-12-31 05:39] LABS: Albumin Level 3.5 g/dL (3.5-5.0); Anion Gap 16 (12-20); Blood Urea Nitrogen 10 mg/dL (9-16); Calcium 8.4 mg/dL (8.4-10.2); Carbon Dioxide 26 mmol/L (22-29); Chloride 102 mmol/L (96-108); Creatinine Clr Calc Pharmacy 79.1; Estimated Glomerular Filt Rate > 60; Glucose Random 146 mg/dL (60-115); Magnesium 2.2 mg/dL (1.6-2.6); Potassium 3.5 mmol/L (3.3-5.1); Sodium 140 mmol/L (135-145)
[2021-12-31 05:43] LABS: B Type Natriuretic Peptide < 10 pg/mL (<100)
[2021-12-31] MEDS: Chlorhexidine Gluc Oral Rinse 15 ML MOUTHWASH BUCCAL ×3 (07:23→21:17)
[2021-12-31] MEDS: levETIRAcetam Oral Soln 500 MG/5 ML 1000 MG G-TUBE ×2 (07:24→21:17)
[2021-12-31] MEDS: Enoxaparin Sodium 80 MG/0.8 ML SYRINGE SUBCUT ×2 (07:24→19:28)
[2021-12-31 08:57] LABS: Venous Blood Gas Refer to POC result
--- NOTE | 2021-12-31 10:21 | MHC.CLN ---
F/U PT REMAINS INTUBATED WEIGHT=79.3 KG; CMW=61 KG. TOLERATING TF AT FS PER NSG WITH LOW RESIDUALS PT RECEIVING TF JEVITY 1.0 AT MAX GOAL RATE 60ML/HR WITH 240ML FREE WATER FLUSHES Q 8 HRS PROVIDES 1526KCALS (1734 KCALS WITH SEDATION; 28.4 KCALS/KG BASED ON CMW), 64G PROTEIN (1.05 G/KG), 1922ML TOTAL FREE WATER FROM FORMULA AND FLUSHES (31.5 ML/KG). CONTINUE CURRENT TF AND FLUSH. CONTINUE TO MONITOR TOLERANCE, RESIDUALS AND LYTES.
--- NOTE | 2021-12-31 11:49 | PM.CCPN ---
Subjective Subjective Date of Service: 12/31/21 Interval History: Mrs. Ferro was transferred to ICU on Dec 21 of hypercarbic respiratory failure. Past medical hx was obtained from daughter Jessie (claudia Peguero), cell phone [phone]. The patient is a 66 year old female w PMHx of brain cancer (grade 3 anaplastic astrocytoma) in 2009, s/p surgery and chemo and radiation at [facility] in [place].? The tumor came back in 2011 but was dormant, and she had a repeat surgery.? MRI every two years thereafter has been negative.? But she?s had periodic seizures since then, last was this past October.? The sz are controlled w Keppra.? Also PMHx of HTN, and a CVA 4-5 yrs ago, and had a DVT at that time, was on anticoagulation for a time. For the last three years, she?s had progressive refractory torticollis with her head bent over more and more to the right.? Coincidentally, she developed TERI.? Been variably compliant with CPAP.? She?s seen [facility] neurologists, and was referred to Dr. Sheffield at the [facility] for Botox tx which made her worse.? Last time she saw Dr. Sheffield in June, she said that there was nothing more that they could do. ?The patient?s head is now bent over all the time, almost to her shoulder.? See the pictures that I took in my progress note from Dec 28.? The daughter also told me today that her mother?s endurance has been declining over about the last month. The patient lives w her .? She needs help with all her ADLs.? She is able to carry out basic conversations.? When she walks, she doesn?t use any assistive device but holds on to someone.? ?She eats by herself.? 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 Her head is now starting to impact her posture, such that her trunk is now increasingly bent over to the right when she walks. HISTORY OF PRESENT ILLNESS:? The patient was BIBA to the ED on Dec 20 with altered MS and near syncopal episode.? She had increasing sleepiness for maybe a day prior to that, along w URI sx.? At the scene, EMS found SpO2 was 60% on room air with labored breathing.? The patient does not use oxygen at home. In the ED, the patient was afebrile.? Sat was 99% on NRBFM, with mild resp distress, insp and exp wheezing.? Not following commands or answering questions.? White count was 13, PT was 22/1.9, bicarb was 34, BUN/creatinine 15/0.7, BNP 175 (was normal last year), albumin was 3.6.? Prior serum bicarb levels in ranged 30-41, and she was not on any diuretic. Head CT showed no acute pathology; ?there was unchanged bifrontal , right basal ganglia and right parieto-occipital encephalomalacia. ?CTPA showed no evidence for pulmonary emboli.? The heart size and great vessels were normal.? No evidence of right heart strain.? No pulmonary infiltrates other than minor bilat LL atelectasis.? Abdom CT showed no acute intra-abdominal process. At one point in the ED, the patient was having upper extremity contractions and appeared like she might be having a seizure.? Versed was given.? The patient was admitted to Medicine with the diagnosis of seizures.? She was loaded w Keppra, altho subsequent Keppra level on admission to the ED came back at 75. ?Venous duplex showed very small amount of echogenic, noncompressible nonocclusive thrombus in the left popliteal vein, could represent chronic thrombus related to prior DVT.? She was started on bid Lovenox. The next day (Dec 21), the patient was drowsy and minimally responsive.? On 2.5 L nasal cannula, the sat was 93%.? ABG showed 7.23/125/41/18.? The patient was intubated without difficulty using a glidescopy hyperangulated blade.? She was transferred to the ICU. EEG done off propofol on Dec 22 showed severe diffuse background slowing, consistent with a diffuse encephalopathic process.? No epileptiform discharges were seen.? The sputum was purulent, so the patient was treated with vanco and meropenam.? On 12/23, the sputum grew 4+ strep pneumo, abx were changed to ceftriaxone. This week, the patient?s MS has lightened up such that when she?s not sedated, she is consistently appropriately responsive.? Even on propofol 15ug she is appropriate responsive.? Denies pain.? Seems to be very comfortable.? She is barely able to move her head all.? Earlier with PSV trials, hadn?t been able to last long enough for safe extubation.? With PSV trials, the best we got down to was 10cm.? We started her on a Lasix drip. In order to see if a tracheostomy would be possible if it were necessary, on Dec 28 we anesthetized her w propofol and paralyzed her with 80 mg Zemuron.? I was only able to move her head medially maybe 15-20?, to at best a 45? angle w the vertical axis.? Furthermore, in the flexion/extension plane, she had almost no neck movement at all.? See the pics included in my progress note from that day. I discussed the situation at great length with family and with Dr. Wood, our thoracic surgeon.? With the patient?s ?s and daughter?s permission, I sent him the above mentioned pictures.? My feeling was that she would have to be transferred out to a tertiary center to be managed safely.? He agreed, given that if a tracheostomy were to be needed, it would be a mediastinal trach, requiring a median sternotomy.? No emergency FONA would be possible.? So since then, I?ve kept the patient lightly sedated for her comfort until we can accomplish the transfer.? We?re waiting for a bed at the [facility] (see below) CURRENT MEDS: Lasix 4mg/hr Levophed 0.01ug Propofol 15 ug Lovenox 80mg bid Keppra 1000 mg bid This morning, on propofol 15ug, she?s arousable and responsive.? HR 99, SR.? BP 111/55.? On ACPC mode, rate 8, pressures 16/5, 30%, RR is 15, Vt 400cc, Ve 5L, PIP 21cm, ETCO2 30mm, Sat 97%.? CVBG 7.44/42/+4.? Afebrile now; Tmax 100.9 last night.? No obvious jugular venous distention with the head of the bed at about 20 degrees.? The patient's head is lying on her right shoulder, pretty close to at a right angle to the vertical axis.? Listening over her neck, the air passages clear.? Chest is clear to auscultation, with a normal expiratory phase.? Heart rate and rhythm are regular, with normal-sounding S1 and S2, with no murmur or gallops.? The abdomen is benign.? She has <1+ systemic edema. U/O last 24hrs 938cc, net positive 1.6L.? Net positive for the hospitalization 9 liters. LABORATORY DATA:? Below.? Notably, WBC stable, BUN/creatinine stable (on the Lasix drip), potassium and phosphorous need repletion.? BNP < 10 today. IMPRESSION: 1. Fixed torticollis.? Only limited neck flexibility.? My suspicion is that that very likely has something to do with her hypercarbia. 2. Underlying TERI.? Also likely has something to do with her torticollis. 3. Chronic CO2 retention/hypercarbic respiratory failure.? As demonstrated by her elevated serum bicarb levels.? 4. Possible mild pneumococcal pneumonia.? Treated with ceftriaxone for six days. 5. Acute hypercarbic respiratory failure.? She may well have chronic hypercarbia, but the etiology of her acute decompensation is unclear.? The lung parenchyma on her chest CT was unimpressive so it?s highly unlikely that she had a significant pneumonia, but it?s possible that the pneumococcus was a causative factor.? COVID, RSV, and Influenza PCRs were negative.? An obvious question is, Did her torticollis finally reach a severity at which she finally could no longer compensate? She?s been able to tolerate moderate levels of PSV so far, but I?ve been hesitant to push her further because extubation without the option of a surgical MONICA airway is not in the cards. 6. Possible seizures.? It?s possible that she had a seizure.? Keppra level was high on admission.? We dropped her Keppra to 1000 mg per GT bid (she was on 1000 mg tid at home).? No recurrence of any movements suggestive of a sz. 7. Renal indices are low, still has about some slight edema, BNP was high, and she has resp failure.? Continuing to diurese.? Increase Lasix now to 8 mg/hr.? BNP is now < 10.? Probably stop the Lasix tomorrow. 8. Low grade temp last night.? Recultured. 9. DVT left leg.? Presumably chronic.? Keeping her on bid Lovenox. 10. Metabolic alkalosis.? No doubt 2? Lasix.? One dose of Diamox today. 11. Hypokalemia.? Repleted. 12 Hypophosphatemia.? Repleted. 13. Nutrition.? On Jevity at goal rate. Her torticollis is the major problem, bec if we extubate her, it could prevent reintubation, and worse, emergent MONICA surgical airway would be impossible. Dec [address] Lakesha Sheffield, the neurologist from [facility] who was caring for the patient?s torticollis.? (Office telephone [phone]; cell phone [phone].)? Last time she saw the patient was in June.? She understands the situation and agrees that transfer is warranted. Later that day had further multiple telephone d/w [facility] transfer staff.? Spoke with Dr. Sheila Edwards (cell [phone]) from the Medical ICU at [facility] and Dr. Ochoa from the Surgical ICU.? They understand the situation completely and the need to plan for potential complications after extubation.? I also indicated my opinion that even if she?s extubated uneventfully, my suspicion is that ultimately, maybe a month or a few months down the line, she would require a tracheostomy. ? They accepted the patient for transfer to one of the ICUs at the [facility].? (Fax line [phone].)? There were no beds that day or yesterday and we?ve been informed no beds right now but they hope they?ll have a bed for her later today or tomorrow.? Until then the plan is to keep her lightly sedated. Had further d/w family today and they are satisfied, they wish to go to [facility], as opposed to looking for another center.? All questions answered. Critical care time: ?60+ min Critical Care Time (minutes): 60 Physical Exam Vital Signs: Vital Signs: Last Vital Signs Temp 99.8 F 12/31/21 08:00 Pulse 79 12/31/21 11:00 Resp 15 12/31/21 11:00 BP 123/67 12/31/21 11:00 Pulse Ox 94 12/31/21 11:00 O2 Del Method 12/31/21 11:00 O2 Flow Rate 21 12/29/21 17:32 FiO2 21 12/31/21 11:00 Oxygen Flow Rate 15 12/20/21 17:07 BMI result Body Mass Index 29.9 Objective Data Labs CBC & Chem 7: 12/31/21 05:14 12/31/21 05:14 Labs: Laboratory Results - last 24 hr 12/31/21 12/31/21 12/31/21 05:14 05:14 05:14 WBC 9.6 RBC 4.43 Hgb 11.5 L Hct 37.1 MCV 83.7 MCH 26.0 L MCHC 31.0 RDW 14.4 Plt Count 333 MPV 9.4 Absolute Nucleated RBC 0.000 Nucleated RBC % (auto) 0.0 VBG pH VBG pCO2 VBG pO2 VBG HCO3 VBG O2 Saturation VBG Base Excess Sodium 140 Potassium 3.5 Chloride 102 Carbon Dioxide 26 Anion Gap 16 BUN 10 Creatinine 0.71 Estim Creat Clear Calc 79.1 Estimated GFR > 60 Random Glucose 146 H Calcium 8.4 Phosphorus 3.0 Magnesium 2.2 B-Natriuretic Peptide < 10 Albumin 3.5 D 12/31/21 05:19 WBC RBC Hgb Hct MCV MCH MCHC RDW Plt Count MPV Absolute Nucleated RBC Nucleated RBC % (auto) VBG pH 7.44 H VBG pCO2 42 VBG pO2 47 VBG HCO3 29 H VBG O2 Saturation 73.0 VBG Base Excess 4.5 Sodium Potassium Chloride Carbon Dioxide Anion Gap BUN Creatinine Estim Creat Clear Calc Estimated GFR Random Glucose Calcium Phosphorus Magnesium B-Natriuretic Peptide Albumin Microbiology Microbiology Results: Microbiology 12/20/21 18:26 Blood - Venous Blood Culture - Final No growth after 5 days. 12/20/21 17:27 Blood - Venous Blood Culture - Final No growth after 5 days. 12/21/21 Unknown Sputum - Suctioned Gram Stain - Final 12/21/21 Unknown Sputum - Suctioned Sputum Culture - Final Streptococcus pneumoniae Quality Stroke Does the patient have a stroke diagnosis?: No VTE Prior VTE?: Yes VTE Risk Level:: Medical - moderate - high VTE Device Contraindication: Treatment Not Indicated VTE Drug Contraindication: N/A - Med Ordered Critical Care Time Critical Care Time (minutes): 60
[2021-12-31] MEDS: Sodium,Potassium Phosphates POWD.PACK 2 PACKET PO (12:00)
[2021-12-31] MEDS: Potassium Chloride Packet 20 MEQ PACKET 40 MEQ G-TUBE ×3 (12:00→19:29)
[2021-12-31 12:08] LABS: Appearance Urine Clear; Color Urine Yellow; Glucose Urine UA Negative (Negative); Leukocyte Esterase Urine Negative (Negative); Nitrite Urine Negative (Negative); Urine Blood Negative (Negative); Urine Ketones Negative (Negative); Urine Protein Negative (Neg-Trace)
[2021-12-31 12:30] LABS: Bacteria Urine None Seen (None Seen); Hyaline Casts Urine 0-2 /LPF (0-2); WBC Urine 0-5 /HPF (0-5)
[2021-12-31] MEDS: acetaZOLAMIDE sodium 500 MG VIAL IVPUSH (13:42)
--- NOTE | 2021-12-31 15:27 | MHC.CLN ---
F/U IF JEVITY 1.0 IS NOT AVAILABLE, MAY USE PROMOTE AT MAX GOAL RATE OF 60 ML PER HOUR. WEIGHT=79.3 KG; CMW=61 KG. PROMOTE AT MAX GOAL RATE OF 60ML/HR WITH 240ML FREE WATER FLUSHES Q 8 HRS PROVIDES 1440 KCALS (1648 KCALS WITH SEDATION; 27 KCALS/KG BASED ON CMW), 90 G PROTEIN (1.5 G/KG), 1928ML TOTAL FREE WATER FROM FORMULA AND FLUSHES (31.6 ML/KG). CONTINUE TO MONITOR TOLERANCE, RESIDUALS AND LYTES.
[2021-12-31] MEDS: Nystatin Powder 15 GM BOTTLE 1 APPL TOPICAL ×2 (16:30→22:27)
[2021-12-31] MEDS: Furosemide 200 MG in 0.9 % Sodium Chloride 80 ML IVCONT (16:31)
--- NOTE | 2021-12-31 16:56 | PC.NURSE ---
[facility] CALLED FOR PATIENT UPDATE AND TO LET US KNOW THAT THEY STILL DO NOT HAVE A BED AVAILABLE.
[2022-01-01] VITALS (33 sets, daily range): BP systolic 97–128; BP diastolic 56–84; PULSE 76–99; RESP 9–22; TEMP 35–37.2; O2SAT 93–100; BMI 32.7
[2022-01-01] MEDS: Sodium,Potassium Phosphates POWD.PACK 2 PACKET PO (01:12)
[2022-01-01] MEDS: 0.9 % Sodium Chloride Flush 3 ML SYRINGE IVFLUSH ×2 (01:13→23:38)
[2022-01-01 05:29] LABS: VBG Base Excess 6.2 mmol/L; VBG HCO3 31 mmol/L (22-26); VBG pCO2 49 mmHg; VBG pH 7.41 (7.32-7.43); VBG pO2 52 mmHg
[2022-01-01 05:32] LABS: Venous Blood Gas Refer to POC result
[2022-01-01 05:39] LABS: Anion Gap 14 (12-20); Blood Urea Nitrogen 12 mg/dL (9-16); Calcium 8.4 mg/dL (8.4-10.2); Carbon Dioxide 28 mmol/L (22-29); Chloride 101 mmol/L (96-108); Creatinine Clr Calc Pharmacy 73.2; Estimated Glomerular Filt Rate > 60; Glucose Random 156 mg/dL (60-115); Magnesium 2.2 mg/dL (1.6-2.6); Phosphorus 3.8 mg/dL (2.7-4.5); Sodium 139 mmol/L (135-145)
[2022-01-01] MEDS: propofoL 1,000 MG/100 ML VIAL 10.49 MG IVCONT (08:09)
[2022-01-01] MEDS: Enoxaparin Sodium 80 MG/0.8 ML SYRINGE SUBCUT ×2 (08:09→19:33)
[2022-01-01] MEDS: Nystatin Powder 15 GM BOTTLE 1 APPL TOPICAL ×3 (08:09→20:37)
[2022-01-01] MEDS: levETIRAcetam Oral Soln 500 MG/5 ML 1000 MG G-TUBE ×2 (08:09→20:36)
[2022-01-01] MEDS: Chlorhexidine Gluc Oral Rinse 15 ML MOUTHWASH BUCCAL ×3 (08:10→20:36)
--- NOTE | 2022-01-01 11:07 | P.PNCC_ITS ---
Subjective Subjective Date of Service: 01/01/22 Interval History: Mrs. Ferro was transferred to ICU on Dec 21 bec of hypercarbic respiratory failure. The main problem is severe fixed torticollis.? Her head is lying on her right shoulder.? See my note from yesterday.? My suspicion is that is a major cause of her hypercarbic resp failure that lead to her intubation on Dec 21.? We are still waiting for a bed at [facility] to transfer her there.? I called this morning.? Nothing yet.? Beds usually open up in the afternoon. CURRENT MEDS: Lasix 4mg/hr Levophed 0.01ug Propofol 30 ug Lovenox 80mg bid Keppra 1000 mg bid This morning, on propofol 30ug, she?s well sedated.? HR 88, SR.? BP 114/67.? On ACPC mode, rate 8, pressures 16/5, 30%, RR is 12, Vt 420cc, Ve 5.5L, PIP 21cm, ETCO2 33mm, Sat 98%.? CVBG 7.41/49/+6.? Afebrile.? No obvious jugular venous distention with the head of the bed at about 20 degrees.? The patient's head is lying almost on her right shoulder, pretty close to at a right angle to the ve rtical axis.? Listening over her neck, the air passages clear.? Chest is clear to auscultation, with a normal expiratory phase.? Heart rate and rhythm are regular, with normal-sounding S1 and S2, with no murmur or gallops.? The abdomen is benign.? She has <1+ systemic edema. U/O last 24hrs 1950cc, net positive 380cc.? Net positive for the hospitalization 9 liters. LABORATORY DATA:? Below.? Notably, BUN/creatinine up a tiny bit (on the Lasix drip), potassium and phosphorous normalized. IMPRESSION: 1. Fixed torticollis.? Only limited neck flexibility.? My suspicion is that that very likely has something to do with her hypercarbia. 2. Underlying TERI.? Also likely has something to do with her torticollis. 3. Chronic CO2 retention/hypercarbic respiratory failure.? As demonstrated by her elevated serum bicarb levels.? 4. Possible mild pneumococcal pneumonia.? Treated with ceftriaxone for six days. 5. Acute hypercarbic respiratory failure.? She may well have chronic hypercarbia, but the etiology of her acute decompensation is unclear.? The lung parenchyma on her chest CT was unimpressive so it?s highly unlikely that she had a significant pneumonia, but it?s possible that the pneumococcus was a causative factor.? COVID, RSV, and Influenza PCRs were negative.? An obvious question is, Did her torticollis finally reach a severity at which she finally could no longer compensate? She?s been able to tolerate moderate levels of PSV so far, but I?ve been hesitant to push her further because extubation without the option of a surgical MONICA airway is not in the cards. ??? Continue on AC rate 8.? Dropped FiO2 to 25%. 6. Possible seizures.? It?s possible that she had a seizure.? Keppra level was high on admission.? We dropped her Keppra to 1000 mg per GT bid (she was on 1000 mg tid at home).? No recurrence of any movements suggestive of a sz. 7. Renal indices are low, still has some slight edema, and she has resp failure.? Continue to diurese.? Increase Lasix to 6 mg/hr.? Probably stop the Lasix tomorrow. 8. Low grade temp on 12/30.? U/A and sputum gram stain negative. 9. DVT left leg.? Presumably chronic.? Keeping her on bid Lovenox. 10. Metabolic alkalosis.? No doubt 2? Lasix.? Diamox. 11. Hypokalemia.? Repleted. 12 Hypophosphatemia.? Repleted. 13. Neuro/psych:? Propofol holiday today, then drop propofol to 15ug. 14. Nutrition.? On Jevity at goal rate. Her torticollis is the major problem, bec if we extubate her, it could prevent reintubation, and worse, emergent MONICA surgical airway would be impossible. Dec [address] Lakesha Sheffield, the neurologist from [facility] who was caring for the patient?s torticollis.? (Office telephone [phone]; cell phone [phone].)? Last time she saw the patient was in June.? She understands the situation and agrees that transfer is warranted. Later that day had further multiple telephone d/w [facility] transfer staff.? Spoke with Dr. Sheila Edwards (cell [phone]) from the Medical ICU at [facility] and Dr. Ochoa from the Surgical ICU.? They understand the situation completely and the need to plan for potential complications after extubation.? I also indicated my opinion that even if she?s extubated uneventfully, my suspicion is that ultimately, maybe a month or a few months down the line, she would require a tracheostomy. ? They accepted the patient for transfer to one of the ICUs at the [facility].? (Fax line [phone].)? We?ve been waiting for a bed since then.? Family not interested in considering another center.? Plan is to keep her lightly sedated until she?s transferred. Spoke with family today, answered all their questions. Critical care time: ?50+ min Critical Care Time (minutes): 50 Physical Exam Vital Signs: Vital Signs: Last Vital Signs Temp 98.5 F 01/01/22 08:00 Pulse 89 01/01/22 11:00 Resp 12 01/01/22 11:00 BP 112/65 01/01/22 11:00 Pulse Ox 97 01/01/22 11:00 O2 Del Method 01/01/22 11:00 O2 Flow Rate 21 12/29/21 17:32 FiO2 30 01/01/22 11:00 Oxygen Flow Rate 15 12/20/21 17:07 BMI result Body Mass Index 32.7 Objective Data Labs CBC & Chem 7: 12/31/21 05:14 01/01/22 05:10 Labs: Laboratory Results - last 24 hr 12/31/21 01/01/22 01/01/22 11:57 05:10 05:23 VBG pH 7.41 VBG pCO2 49 VBG pO2 52 VBG HCO3 31 H VBG O2 Saturation 79.0 VBG Base Excess 6.2 Sodium 139 Potassium 4.0 Chloride 101 Carbon Dioxide 28 Anion Gap 14 BUN 12 Creatinine 0.76 Estim Creat Clear Calc 73.2 Estimated GFR > 60 Random Glucose 156 H Calcium 8.4 Phosphorus 3.8 Magnesium 2.2 Urine Color Yellow Urine Appearance Clear Urine pH 5.0 Ur Specific [place] 1.020 Urine Protein Negative Urine Glucose (UA) Negative Urine Ketones Negative Urine Blood Negative Urine Nitrite Negative Ur Leukocyte Esterase Negative Urine RBC 3-5 H Urine WBC 0-5 Ur Squamous Epith Cells 3-5 Urine Bacteria None Seen Hyaline Casts 0-2 Microbiology Microbiology Results: Microbiology 12/31/21 11:57 Sputum - Suctioned Gram Stain - Final 12/31/21 11:57 Sputum - Suctioned Sputum Culture - Preliminary Culture in progress. 12/20/21 18:26 Blood - Venous Blood Culture - Final No growth after 5 days. 12/20/21 17:27 Blood - Venous Blood Culture - Final No growth after 5 days. 12/21/21 Unknown Sputum - Suctioned Gram Stain - Final 12/21/21 Unknown Sputum - Suctioned Sputum Culture - Final Streptococcus pneumoniae Quality Stroke Does the patient have a stroke diagnosis?: No VTE Prior VTE?: Yes VTE Risk Level:: Medical - moderate - high VTE Device Contraindication: Treatment Not Indicated VTE Drug Contraindication: N/A - Med Ordered Critical Care Time Critical Care Time (minutes): 60
[2022-01-01] MEDS: HYDROmorphone HCl 1 MG/ML SYRINGE 0.5 MG IVPUSH (12:45)
--- NOTE | 2022-01-01 16:38 | P.PNCC_ITS ---
Subjective Subjective Date of Service: 01/01/22 Interval History: Mrs. Ferro has been intubated in our ICU for 11 days now.? She has severe fixed torticollis.? We?re looking for a tertiary care center that could do a specialized tracheostomy if necessary.? See my earlier progress note. I called the [facility] twice today.? They?ve accepted her on Dec 29, but they haven?t had a bed yet, and they don?t know when one will open up.? I called [facility], [facility], [facility], and [facility], none are accepting transfers.? I called [facility] and [facility], discussed at length with their thoracic team, neither of them have the capability to manage this.? They recommended [facility].? Spoke further with family, we?ll wait for the [facility]. Time:? 60+ min.? ([id number]) Critical Care Time (minutes): 0 Physical Exam Vital Signs: Vital Signs: Last Vital Signs Temp 98.6 F 01/01/22 12:00 Pulse 83 01/01/22 16:00 Resp 12 01/01/22 16:00 BP 103/61 01/01/22 16:00 Pulse Ox 96 01/01/22 16:00 O2 Del Method 01/01/22 16:00 O2 Flow Rate 21 12/29/21 17:32 FiO2 30 01/01/22 16:00 Oxygen Flow Rate 15 12/20/21 17:07 BMI result Body Mass Index 32.7 Objective Data Labs CBC & Chem 7: 12/31/21 05:14 01/01/22 05:10 Labs: Laboratory Results - last 24 hr 01/01/22 01/01/22 05:10 05:23 VBG pH 7.41 VBG pCO2 49 VBG pO2 52 VBG HCO3 31 H VBG O2 Saturation 79.0 VBG Base Excess 6.2 Sodium 139 Potassium 4.0 Chloride 101 Carbon Dioxide 28 Anion Gap 14 BUN 12 Creatinine 0.76 Estim Creat Clear Calc 73.2 Estimated GFR > 60 Random Glucose 156 H Calcium 8.4 Phosphorus 3.8 Magnesium 2.2 Microbiology Microbiology Results: Microbiology 12/31/21 11:57 Sputum - Suctioned Gram Stain - Final 12/31/21 11:57 Sputum - Suctioned Sputum Culture - Preliminary Culture in progress. 12/20/21 18:26 Blood - Venous Blood Culture - Final No growth after 5 days. 12/20/21 17:27 Blood - Venous Blood Culture - Final No growth after 5 days. 12/21/21 Unknown Sputum - Suctioned Gram Stain - Final 12/21/21 Unknown Sputum - Suctioned Sputum Culture - Final Streptococcus pneumoniae Quality Stroke Does the patient have a stroke diagnosis?: No VTE Prior VTE?: Yes VTE Risk Level:: Medical - moderate - high VTE Device Contraindication: Treatment Not Indicated VTE Drug Contraindication: N/A - Med Ordered
[2022-01-01] MEDS: Furosemide 200 MG in 0.9 % Sodium Chloride 80 ML IVCONT (16:55)
[2022-01-01] MEDS: propofoL 1,000 MG/100 ML VIAL 7.87 MG IVCONT (18:21)
[2022-01-01] MEDS: acetaZOLAMIDE 250 MG TABLET 500 MG G-TUBE (20:36)
[2022-01-02] VITALS (28 sets, daily range): BP systolic 99–120; BP diastolic 54–79; PULSE 81–102; RESP 8–19; TEMP 34.3–37.1; O2SAT 91–100; BMI 32.5
[2022-01-02] MEDS: propofoL 1,000 MG/100 ML VIAL 7.87 MG IVCONT ×2 (05:14→15:13)
[2022-01-02 05:17] LABS: VBG Base Excess 11.1 mmol/L; VBG HCO3 36 mmol/L (22-26); VBG pCO2 50 mmHg; VBG pH 7.46 (7.32-7.43); VBG pO2 52 mmHg
[2022-01-02 05:40] LABS: Anion Gap 14 (12-20); Blood Urea Nitrogen 16 mg/dL (9-16); Calcium 8.6 mg/dL (8.4-10.2); Carbon Dioxide 32 mmol/L (22-29); Chloride 97 mmol/L (96-108); Creatinine Clr Calc Pharmacy 74.3; Estimated Glomerular Filt Rate > 60; Glucose Random 127 mg/dL (60-115); Magnesium 2.4 mg/dL (1.6-2.6); Phosphorus 3.6 mg/dL (2.7-4.5); Potassium 3.7 mmol/L (3.3-5.1); Sodium 139 mmol/L (135-145)
[2022-01-02 05:50] LABS: Venous Blood Gas Refer to POC result
[2022-01-02] MEDS: levETIRAcetam Oral Soln 500 MG/5 ML 1000 MG G-TUBE ×2 (07:43→20:18)
[2022-01-02] MEDS: Nystatin Powder 15 GM BOTTLE 1 APPL TOPICAL ×3 (07:43→20:19)
[2022-01-02] MEDS: acetaZOLAMIDE 250 MG TABLET 500 MG G-TUBE ×2 (07:43→20:18)
[2022-01-02] MEDS: 0.9 % Sodium Chloride Flush 3 ML SYRINGE IVFLUSH ×2 (07:43→15:15)
[2022-01-02] MEDS: Chlorhexidine Gluc Oral Rinse 15 ML MOUTHWASH BUCCAL ×3 (07:43→20:18)
[2022-01-02] MEDS: Enoxaparin Sodium 80 MG/0.8 ML SYRINGE SUBCUT ×2 (07:43→20:18)
[2022-01-02] MEDS: Potassium Chloride Packet 20 MEQ PACKET 40 MEQ G-TUBE ×3 (10:12→21:50)
--- NOTE | 2022-01-02 12:59 | MHC.CM.PN ---
PER REVIEW OF EMR, PATIENT CONTINUES ON VENT SUPPORT. NO BED AVAILABLE AT [facility] CASE MANAGEMENT CONTINUES TO FOLLOW
--- NOTE | 2022-01-02 13:17 | P.PNCC_ITS ---
Subjective Subjective Date of Service: 01/02/22 Interval History: Mrs. Ferro was transferred to ICU on Dec 21 of hypercarbic respiratory failure. Past medical hx was obtained from daughter Jessie (claudia Peguero), cell phone [phone]. The patient is a 66 year old female w PMHx of brain cancer (grade 3 anaplastic astrocytoma) in 2009, s/p surgery and chemo and radiation at [facility] in [place].? The tumor came back in 2011 but was dormant, and she had a repeat surgery.? MRI every two years thereafter has been negative.? But she?s had periodic seizures since then, last was this past October.? The sz are controlled w Keppra.? Also PMHx of HTN, and a CVA 4-5 yrs ago, and had a DVT at that time, was on anticoagulation for a time. For the last three years, she?s had progressive refractory torticollis with her head bent over more and more to the right.? Coincidentally, she developed TERI.? Been variably compliant with CPAP.? She?s seen [facility] neurologists, and was referred to Dr. Sheffield at the [facility] for Botox tx which made her worse.? Last time she saw Dr. Sheffield in June, she said that there was nothing more that they could do.? The patient?s head is now bent over all the time, almost to her shoulder.? See the pictures that I took in my progress note from Dec 28.? The daughter also told me today that her mother?s endurance has been declining over about the last month. The patient lives w her .? She needs help with all her ADLs.? She is able to carry out basic conversations.? When she walks, she doesn?t use any assistive device but holds on to someone.?? She eats by herself.? Her is a facilities flight check pilot and they leave the house almost every day to go to alevism.? Her head is now starting to impact her posture, such that her trunk is now increasingly bent over to the right when she walks. HISTORY OF PRESENT ILLNESS:? The patient was BIBA to the ED on Dec 20 with altered MS and near syncopal episode.? She had increasing sleepiness for maybe a day prior to that, along w URI sx.? At the scene, EMS found SpO2 was 60% on room air with labored breathing.? The patient does not use oxygen at home. In the ED, the patient was afebrile.? Sat was 99% on NRBFM, with mild resp distress, insp and exp wheezing.? Not following commands or answering questions.? White count was 13, PT was 22/1.9, bicarb was 34, BUN/creatinine 15/0.7, BNP 175 (was normal last year), albumin was 3.6.? Prior serum bicarb levels in ranged 30-41, and she was not on any diuretic. Head CT showed no acute pathology;? there was unchanged bifrontal , right basal ganglia and right parieto-occipital encephalomalacia.? CTPA showed no evidence for pulmonary emboli.? The heart size and great vessels were normal.? No evidence of right heart strain.? No pulmonary infiltrates other than minor bilat LL atelectasis.? Abdom CT showed no acute intra-abdominal process. At one point in the ED, the patient was having upper extremity contractions and appeared like she might be having a seizure.? Versed was given.? The patient was admitted to Medicine with the diagnosis of seizures.? She was loaded w Keppra, altho subsequent Keppra level on admission to the ED came back at 75.? Venous duplex showed very small amount of echogenic, noncompressible nonocclusive thrombus in the left popliteal vein, could represent chronic thrombus related to prior DVT.? She was started on bid Lovenox. The next day (Dec 21), the patient was drowsy and minimally responsive.? On 2.5 L nasal cannula, the sat was 93%.? ABG showed 7.23/125/41/18.? The patient was intubated without difficulty using a glidescope hyperangulated blade.? She was transferred to the ICU. EEG done off propofol on Dec 22 showed severe diffuse background slowing, consi stent with a diffuse encephalopathic process.? No epileptiform discharges were seen.? The sputum was purulent, so the patient was treated with vanco and meropenam.? On 12/23, the sputum grew 4+ strep pneumo.? Abx were changed to ceftriaxone. Over the subsequent days, the patient?s MS lightened up such that when she?s not sedated, she is consistently appropriately responsive.? She is barely able to move her head all.? She was able to do up to about six hours of PSV, down to as low as 10cm.? We started her on a Lasix drip. In order to see if a tracheostomy would be possible were it to be necessary, on Dec 28 we anesthetized her w propofol and paralyzed her with 80 mg Zemuron.? I was only able to move her head medially maybe 15-20?, to at best a 45? angle w the vertical axis.? Furthermore, in the flexion/extension plane, she had almost no neck movement at all.? See the pics included in my progress note from that day. I discussed that at great length with family and with Dr. Wood, our thoracic surgeon.? With the patient?s ?s and daughter?s permission, I sent Dr. Wood the above pictures.? My feeling was that she would have to be transferred out to a tertiary center to be managed safely.? He agreed, given that if a tracheostomy were to be needed, it would be a mediastinal trach, requiring a median sternotomy.? So since then, I?ve kept the patient sedated for her comfort until we can accomplish the transfer.? We?re waiting for a bed at the [facility] (see below). CURRENT MEDS: Diamox 500mg bid Lovenox 80mg bid Lasix 6mg/hr Levophed on at off at miniscule doses. Propofol 15 ug Keppra 1000 mg bid This morning, on propofol 15ug, she?s lightly sedated, easily wakes up and responds appropriately to family.? HR 84, SR.? BP 105/47.? On ACPC mode, rate 8, 16/5, 25%, RR is 10-12, Vt 420cc, Ve 4-5L, PIP 21cm, ETCO2 39mm, Sat 95%.? CVBG 7.46/50/+11.? Afebrile.? No obvious jugular venous distention with the head of the bed at about 20 degrees.? The patient's head is lying almost on her right shoulder.? Listening over her neck, the air passage is clear.? Chest is clear to auscultation, with a normal expiratory phase.? Heart rate and rhythm are regular, with normal-sounding S1 and S2, with no murmur or gallops.? The abdomen is benign.? She has minimal edema. U/O last 24hrs 2085cc, net negative 40cc.? Net positive for the hospitalization 9 liters. LABORATORY DATA:? Below.? Notably, BUN/creatinine up a tiny bit (on the Lasix drip), potassium 3.7. IMPRESSION: 1. Fixed torticollis.? Limited neck flexibility.? My suspicion is that that very likely has something to do with her hypercarbia. 2. Underlying TERI.? Also likely has something to do with her torticollis. 3. Chronic CO2 retention/hypercarbic respiratory failure.? As demonstrated by her elevated serum bicarb levels.? 4. Possible mild pneumococcal pneumonia.? Had a 6-day course of ceftriaxone. 5. Acute hypercarbic respiratory failure.? She may well have chronic hypercarbia, but the etiology of her acute decompensation is unclear.? The lung parenchyma on her chest CT was unimpressive so it?s highly unlikely that she had a significant pneumonia, but it?s possible that the pneumococcus was a causative factor.? COVID, RSV, and Influenza PCRs were negative.? The obvious question is, Did her torticollis finally reach a severity at which she finally could no longer compensate? She?s been able to tolerate moderate levels of PSV so far, but I?ve been hesitant to push her further because extubation without the option of a surgical MONICA airway is not in the cards. ??? Continue on AC rate 8.? Dropped FiO2 to 25%. 6. Possible seizures.? It?s possible that she had a seizure.? Keppra level was high on admission.? We dropped her Keppra to 1000 mg per GT bid (she was on 1000 mg tid at home).? No recurrence of any movements suggestive of a sz. 7. Renal indices were low, she had edema, she had resp failure, and BNP was elevated, so we diuresed her.? We?ve pushed her renal indices up, BNP is now normal.? Stopped the Lasix today. 8. Low grade temp on 12/30.? U/A and sputum gram stain were negative. 9. DVT left leg.? Presumably chronic.? Keeping her on bid Lovenox. 10. Metabolic alkalosis.? 2? Lasix.? Diamox for another day or two. 11. Hypokalemia.? Repleted. 12 Hypophosphatemia.? Repleted. 13. Neuro/psych:? Doing well on low dose propofol sedation, with prn Dilaudid for cough or pain. 14. Nutrition.? On Jevity at goal rate. Her torticollis is the major problem, bec if we extubate her, it could prevent reintubation, and worse, emergent MONICA surgical airway would be impossible. Dec [address] Lakesha Sheffield, the neurologist from [facility] who was caring for the patient?s torticollis.? (Office telephone [phone]; cell phone [phone].)? Last time she saw the patient was in June.? She understands the situation and agreed that transfer was warranted. Later that day had further multiple telephone d/w [facility] transfer staff.? Spoke with Dr. Sheila Edwards (cell [phone]) from the Medical ICU at [facility], and Dr. Ochoa from the Surgical ICU.? They understand the situation completely and the need to plan for potential complications after extubation.? I also indicated my opinion that even if she?s extubated uneventfully, my strong suspicion is that ultimately, maybe a month or a few months down the line, she would require a tracheostomy. ? They accepted the patient for transfer to one of the ICUs at the [facility].? (Fax line [phone].)? We?ve been waiting for a bed since then.? I called the [facility] twice yesterday.? They accepted her on Dec 29, but they haven?t had a bed yet, and they don?t know when one will open up.? I called [facility], [facility], the [facility], and [facility], none are accepting transfers to the Medical ICU.? I called [facility] and [facility], discussed at length with their thoracic team, neither of them have the capability to manage this.? They recommended [place].? Spoke further with family, we?ll wait for the [facility]. Spoke with family today, answered all their questions.? Plan is to keep her lightly sedated until she?s transferred. ADDENDUM AT 5PM: [facility] called with a bed. She'll be going out tonight. Critical Care Time (minutes): 60 Physical Exam Vital Signs: Vital Signs: Last Vital Signs Temp 98.7 F 01/02/22 12:00 Pulse 86 01/02/22 13:00 Resp 15 01/02/22 13:00 BP 101/58 L 01/02/22 13:00 Pulse Ox 95 01/02/22 13:00 O2 Del Method 01/02/22 13:00 O2 Flow Rate 21 12/29/21 17:32 FiO2 25 01/02/22 13:00 Oxygen Flow Rate 15 12/20/21 17:07 BMI result Body Mass Index 32.5 Objective Data Labs CBC & Chem 7: 12/31/21 05:14 01/02/22 05:10 Labs: Laboratory Results - last 24 hr 01/02/22 01/02/22 05:10 05:10 VBG pH 7.46 H VBG pCO2 50 VBG pO2 52 VBG HCO3 36 H VBG O2 Saturation 80.0 VBG Base Excess 11.1 Sodium 139 Potassium 3.7 Chloride 97 Carbon Dioxide 32 H Anion Gap 14 BUN 16 D Creatinine 0.78 Estim Creat Clear Calc 74.3 Estimated GFR > 60 Random Glucose 127 H Calcium 8.6 Phosphorus 3.6 Magnesium 2.4 Microbiology Microbiology Results: Microbiology 12/31/21 11:57 Sputum - Suctioned Gram Stain - Final 12/31/21 11:57 Sputum - Suctioned Sputum Culture - Preliminary Yeast 12/20/21 18:26 Blood - Venous Blood Culture - Final No growth after 5 days. 12/20/21 17:27 Blood - Venous Blood Culture - Final No growth after 5 days. 12/21/21 Unknown Sputum - Suctioned Gram Stain - Final 12/21/21 Unknown Sputum - Suctioned Sputum Culture - Final Streptococcus pneumoniae Quality Stroke Does the patient have a stroke diagnosis?: No VTE Prior VTE?: Yes VTE Risk Level:: Medical - moderate - high VTE Device Contraindication: Treatment Not Indicated VTE Drug Contraindication: N/A - Med Ordered Critical Care Time Critical Care Time (minutes): 60
--- NOTE | 2022-01-02 17:01 | P.DS_ITS ---
DS: Providers Provider Date of Service: 01/02/22 Date of admission: 12/20/21 23:35 Primary care physician: Unknown Physician Consults: 12/20/21 23:34 Consult to Neurology Routine Consulting Provider: [facility] Reason for consultation: Seizure-like activity Has provider been notified: No DS: Diagnosis Discharge Diagnosis (1) Pneumococcal pneumonia: Status: Acute (2) Metabolic alkalosis with respiratory acidosis: Status: Acute (3) Acute on chronic respiratory failure with hypercapnia: Status: Acute (4) Acute respiratory failure with hypoxia: Status: Acute (5) Encephalopathy: Status: Acute (6) Seizure: Status: Acute (7) AMS (altered mental status): Status: Acute (8) Hypoxia: Status: Acute (9) DVT (deep venous thrombosis): Status: Acute (10) Essential hypertension: Status: Acute (11) Torticollis, acquired: Status: Acute (12) COVID-19: Status: Acute (13) Brain cancer: Status: Acute (14) TERI on CPAP: Status: Acute DS: Summary Hospital Course Hospital Course: DISCHARGE/TRANSFER SUMMARY DISCHARGE DIAGNOSES: 1. Fixed torticollis with airway compromise.. 2. TERI. 3. Chronic CO2 retention/hypercarbic respiratory failure.? 4. Possible mild pneumococcal pneumonia. 5. Acute hypercarbic respiratory failure. 6. Possible seizures. 7. DVT left leg. 8. Metabolic alkalosis 2? diuresis. Mrs. Ferro is a 66 year old female w PMHx of brain cancer (grade 3 anaplastic astrocytoma) in 2009, s/p surgery and chemo and radiation at [facility] in [place].? The tumor came back in 2011 but was dormant, and she had a repeat surgery.? MRI every two years thereafter has been negative.? But she?s had periodic seizures since then, last was this past October.? The sz are controlled w Keppra.? Also PMHx of HTN, and a CVA 4-5 yrs ago, and had a DVT at that time, was on anticoagulation for a time. For the last three years, she?s had progressive refractory torticollis with her head bent over more and more to the right.? Coincidentally, she developed TERI.? Been variably compliant with CPAP.? She?s seen mult neurologists, and was referred to Dr. Sheffield at the [facility] for Botox tx which made her worse.? Last time she saw Dr. Sheffield in June, she said that there was nothing more that they could do.? The patient?s head is now bent over all the time, almost to her shoulder.? See the pictures that I took in my progress note from Dec 28.? The daughter also told me today that her mother?s endurance has been declining over about the last month. The patient lives w her .? She needs help with all her ADLs.? She is able to carry out basic conversations.? When she walks, she doesn?t use any assistive device but holds on to someone.?? She eats by herself.? Her is a educational programming director and they leave the house almost every day to go to buddhism.? Her head is now starting to impact her posture, such that her trunk is now increasingly bent over to the right when she walks. HISTORY OF PRESENT ILLNESS:? The patient was BIBA to the ED on Dec 20 with altered MS and near syncopal episode.? She had increasing sleepiness for maybe a day prior to that, along w ROZ hall.? At the scene, EMS found SpO2 was 60% on room air with labored breathing.? The patient does not use oxygen at home. In the ED, the patient was afebrile.? Sat was 99% on NRBFM, with mild resp distress, insp and exp wheezing.? Not following commands or answering questions.? White count was 13, PT was 22/1.9, bicarb was 34, BUN/creatinine 15/0.7, BNP 175 (was normal last year), albumin was 3.6.? Prior serum bicarb levels in ranged 30-41, and she was not on any diuretic. Head CT showed no acute pathology;? there was unchanged bifrontal , right basal ganglia and right parieto-occipital encephalomalacia.? CTPA showed no evidence for pulmonary emboli.? The heart size and great vessels were normal.? No evidence of right heart strain.? No pulmonary infiltrates other than minor bilat LL atelectasis.? Abdom CT showed no acute intra-abdominal process. At one point in the ED, the patient was having upper extremity contractions and appeared like she might be having a seizure.? Versed was given.? The patient was admitted to Medicine with the diagnosis of seizures.? She was loaded w Keppra, altho subsequent Keppra level on admission to the ED came back at 75.? Venous duplex showed very small amount of echogenic, noncompressible nonocclusive thrombus in the left popliteal vein, could represent chronic thrombus related to prior DVT.? She was started on bid Lovenox. The next day (Dec 21), the patient was drowsy and minimally responsive.? On 2.5 L nasal cannula, the sat was 93%.? ABG showed 7.23/125/41/18.? The patient was intubated without difficulty using a glidescope hyperangulated blade.? She was transferred to the ICU. EEG done off propofol on Dec 22 showed severe diffuse background slowing, consistent with a diffuse encephalopathic process.? No epileptiform discharges were seen.? The sputum was purulent, so the patient was treated with vanco and meropenam.? On 12/23, the sputum grew 4+ strep pneumo.? Abx were changed to ceftriaxone. Over the subsequent days, the patient?s MS lightened up such that when she?s not sedated, she is consistently appropriately responsive.? She is barely able to move her head all.? She was able to do up to about six hours of PSV, down to as low as 10cm.? We started her on a Lasix drip. In order to see if a tracheostomy would be possible were it to be necessary, on Dec 28 we anesthetized her w propofol and paralyzed her with 80 mg Zemuron.? I was only able to move her head medially maybe 15-20?, to at best a 45? angle w the vertical axis.? Furthermore, in the flexion/extension plane, she had almost no neck movement at all.? See the pics included in my progress note from that day. The situation was discussed with family and with Dr. Wood, our thoracic surgeon.? In his opinion, the patient required transfer to a tertiary care center, given that if a tracheostomy were to be needed, it would be a mediastinal trach, requiring a median sternotomy.? Subsequently, we kept the patient lightly sedated for her comfort until transfer could be arranged. Her torticollis was the major problem, bec if she was extubated and had difficulty, she might not be able to be reintubated, and emergent MONICA surgical airway would be impossible. We subsequently spoke with Dr. Lakesha Sheffield, the neurologist from [facility] who was caring for the patient?s torticollis. ?(Office telephone [phone]; cell phone [phone].)? Last time she saw the patient was in June.? She understood the situation and agreed that transfer was warranted. Later that day had further multiple telephone d/w [facility] ICU staff (Dr. Sheila Edwards from Medical ICU, and Dr. Ochoa from the Surgical ICU).? They understood the situation completely and the need to plan for potential complications after extubation.? I also indicated my opinion that even if she?s extubated uneventfully, my strong suspicion is that ultimately, maybe a month or a few months down the line, she would require a tracheostomy. They accepted the patient for transfer to one of the ICUs at the [facility].? It took a few days for a bed to become available.? We were notified of a bed this evening and the patient will transfer to the [facility]. Time Spent with Patient Time attestation: Total time spent providing and/or coordinating discharge services: Discharge coordination time: Less than 30 minutes Quality: Safe Use of Opioids Does Pt have an Active Cancer Diagnosis on the Problem List?: No Quality: Stroke Does the patient have a stroke diagnosis?: No Physical Exam Vital Signs: Vital Signs: Last Vital Signs Temp 98.7 F 01/02/22 12:00 Pulse 87 01/02/22 15:54 Resp 10 L 01/02/22 15:54 BP 109/64 01/02/22 15:54 Pulse Ox 100 01/02/22 15:54 O2 Del Method 01/02/22 15:54 O2 Flow Rate 21 12/29/21 17:32 FiO2 25 01/02/22 15:54 Oxygen Flow Rate 15 12/20/21 17:07 BMI result Body Mass Index 32.5 DS: Data Data Completed and Pending Labs on day of discharge: Laboratory Results - last 24 hr 01/02/22 01/02/22 05:10 05:10 VBG pH 7.46 H VBG pCO2 50 VBG pO2 52 VBG HCO3 36 H VBG O2 Saturation 80.0 VBG Base Excess 11.1 Sodium 139 Potassium 3.7 Chloride 97 Carbon Dioxide 32 H Anion Gap 14 BUN 16 D Creatinine 0.78 Estim Creat Clear Calc 74.3 Estimated GFR > 60 Random Glucose 127 H Calcium 8.6 Phosphorus 3.6 Magnesium 2.4 Preliminary micro results at discharge 12/31/21 11:57 Sputum Culture - Preliminary Sputum - Suctioned Yeast Discharge Plan Discharge Anticipated Discharge Date/Time: 01/02/22 18:00 Patient Disposition: Xfer Acute Care Hospital Discharge Diagnosis: Acute respiratory failure Referrals: Physician,Unknown J [Primary Care Provider] - 1 Week Discharge Medications: Discontinued aspirin 81 mg tablet,delayed release (DR/EC) 81 mg PO DAILY Qty: 90 3RF atorvastatin 40 mg tablet 40 mg PO DAILY Qty: 90 3RF hydrochlorothiazide 25 mg tablet 25 mg PO DAILY Qty: 90 3RF levetiracetam 100 mg/mL solution 1,000 mg PO TID Qty: 2700 3RF amlodipine 5 mg tablet 5 mg PO DAILY Qty: 90 3RF baclofen 10 mg tablet 1 tab PO QPM No Action (DME) miscellaneous medical supply Misc See Rx Instructions .ROUTE .MEDSUPPLY Qty: 240 6RF Rx Instructions: Disposable Diaper-PullUps. size large 8x daily As directed, 30 day supply Discharge Orders: Discharge Order (Routine); Ordered 01/02/22 Ordered By: Theron Agustin Activity on Discharge: As tolerated Stand Alone Forms: Patient Portal Discharge page Care Plan Goals: Recovery Health Concerns: Recovery Plan of Treatment: Transfer to higher level care Assessment: As above
--- NOTE | 2022-01-02 19:17 | PC.NURSE ---
[facility] CALLED WITH BED AVAILABLE ON ICU #[phone] AMBULANCE AND HELICOPTER SERVICES UNAVAILABLE: KISHORE LOONEY, [facility], ALERT, UMKEYONNA, GOSIA, DALY MO, BLANQUITA SOARES BREWSTER AND ABDOULAYE CALLED THE [facility] BACK TO VERIFY THAT THEY WILL HOLD THE BED UNLESS A BURN VICTIM TAKES THE BED, GAVE THEM OUR TELEPHONE NUMBER TO UPDATE US IF WE LOSE THE BED AMBULENCE BOOKED FOR 0800 01/03/22, FAMILY AND MD UPDATED
--- NOTE | 2022-01-02 19:49 | P.EN_ITS ---
Event Note Date of Service: 01/02/22 Event Note: Patient unable to be transfer today due to no transportation available for tonight. Plan to DC tomorrow to [facility]
[2022-01-03] VITALS (13 sets, daily range): BP systolic 99–118; BP diastolic 56–67; PULSE 79–88; RESP 8–20; TEMP 34.9–36.1; O2SAT 96–99; BMI 29.3
[2022-01-03] MEDS: 0.9 % Sodium Chloride Flush 3 ML SYRINGE IVFLUSH ×2 (00:06→07:26)
[2022-01-03] MEDS: propofoL 1,000 MG/100 ML VIAL 7.87 MG IVCONT ×2 (03:10→08:48)
[2022-01-03 05:08] LABS: VBG Base Excess 7.4 mmol/L; VBG HCO3 34 mmol/L (22-26); VBG pCO2 58 mmHg; VBG pH 7.37 (7.32-7.43); VBG pO2 62 mmHg
[2022-01-03 05:20] LABS: MANUAL DIFF FLAG NO
[2022-01-03 05:22] LABS: Basophils Absolute Auto 0.1 X10*3/uL (0.0-0.2); Basophils Percent Auto 0.5 % (0-2); Eosinophils Absolute Auto 0.3 X10*3/uL (0.0-0.4); Eosinophils Percent Auto 2.4 % (0-4); Hematocrit 38.1 % (37.0-47.0); Hemoglobin 11.7 g/dl (12.0-16.0); Imm Gran Abs Auto 0.12 X10*3/uL (0.00-0.03); Lymphocytes Absolute Auto 2.4 X10*3/uL (1.2-4.9); Lymphocytes Percent Auto 20.4 % (20-40); Mean Corpuscular HGB Conc 30.7 g/dl (31.0-35.0); Mean Corpuscular Hemoglobin 26.2 pg (27.0-33.0); Mean Corpuscular Volume 85.2 fL (80.0-98.0); Mean Platelet Volume 10.3 fL (9.4-12.3); Monocytes Absolute Auto 1.2 X10*3/uL (0.1-1.2); Monocytes Percent Auto 9.9 % (2-11); Neutrophils Absolute Auto 7.8 x10*3/uL (2.0-8.3); Neutrophils Percent Auto 65.8 % (45-73); Platelet Count 348 X10*3/uL (160-400); Red Blood Count 4.47 X10*6/uL (4.20-5.50); Red Cell Distribution Width 14.3 % (11.0-16.0); White Blood Count 11.9 X10*3/uL (4.8-10.8)
[2022-01-03 05:39] LABS: Alanine Aminotransferase 59 U/L (0-31); Albumin Level 3.3 g/dL (3.5-5.0); Alkaline Phosphatase 74 U/L (39-117); Anion Gap 13 (12-20); Aspartate Amino Transferase 27 U/L (5-31); Bilirubin Total 0.3 mg/dL (0.0-1.0); Blood Urea Nitrogen 20 mg/dL (9-16); Calcium 8.6 mg/dL (8.4-10.2); Carbon Dioxide 26 mmol/L (22-29); Chloride 104 mmol/L (96-108); Creatinine Clr Calc Pharmacy 82.8; Estimated Glomerular Filt Rate > 60; Glucose Random 138 mg/dL (60-115); Magnesium 2.5 mg/dL (1.6-2.6); Phosphorus 2.9 mg/dL (2.7-4.5); Potassium 4.5 mmol/L (3.3-5.1); Sodium 138 mmol/L (135-145); Total Protein 6.7 g/dL (6.5-8.0)
[2022-01-03 06:11] LABS: Venous Blood Gas Refer to POC result
[2022-01-03] MEDS: acetaZOLAMIDE 250 MG TABLET 500 MG G-TUBE (07:25)
[2022-01-03] MEDS: Nystatin Powder 15 GM BOTTLE 1 APPL TOPICAL (07:26)
[2022-01-03] MEDS: Chlorhexidine Gluc Oral Rinse 15 ML MOUTHWASH BUCCAL (07:26)
[2022-01-03] MEDS: levETIRAcetam Oral Soln 500 MG/5 ML 1000 MG G-TUBE (07:26)
--- NOTE | 2022-01-03 09:44 | PC.NURSE ---
[facility] TRANSPORT TO [facility] VIA HELICOPTER REPORT TO MERCEDES GIVEN #[phone]
== END 2022-01-03 09:43 | disposition short-term general hospital (02) | DRG 100 ==
LOC: HO.ED 20:31 → HO.EDOVER 12-21 00:35 → HO.ICU 12-21 14:33 → HO.IMC 12-25 09:24 → HO.ICU 12-25 09:25
PROVIDERS: Anesthesiology; Nurse Practitioner Family; Physician Assistant; Physician Assistant Medical; Student in an Organized Health Care Education/Training Program; Admitting Provider Internal Medicine; Emergency Provider Student in an Organized Health Care Education/Training Program; Visit Provider Internal Medicine Cardiovascular Disease
DX: G40.909 Epilepsy, unspecified, not intractable, without status epilepticus (principal); G93.6 Cerebral edema; J96.01 Acute respiratory failure with hypoxia; J96.22 Acute and chronic respiratory failure with hypercapnia; J13 Pneumonia due to Streptococcus pneumoniae; E87.4 Mixed disorder of acid-base balance; I82.532 Chronic embolism and thrombosis of left popliteal vein; G47.33 Obstructive sleep apnea (adult) (pediatric); M43.6 Torticollis; I10 Essential (primary) hypertension; Z85.841 Personal history of malignant neoplasm of brain; Z92.21 Personal history of antineoplastic chemotherapy; Z91.199 Patient's noncompliance with other medical treatment and regimen due to unspecified reason; Z92.3 Personal history of irradiation; Z86.16 Personal history of COVID-19
CPT/HCPCS: 0241U; 36415; 36600; 70450; 71045; 71275; 72125; 74177; 80048; 80053; 80177; 80202; 81001; 81003; 82040; 82550; 82803; 82947; 83605; 83735; 83880; 84100; 84300; 84484; 85025; 85027; 85610; 85730; 87040; 87070; 87077; 87186; 87205; 87635; 92950; 93005; 93970; 94002; 94003; 94640; 94799; 95816; 99285; C1758; J0696; J1170; J1650; J1940; J1953; J2185; J2250; J3010; J3370; J3475; P9047; Q9967

== ENCOUNTER 2022-06-02 10:00 | Outpatient (REF) | payer OTHER, SELFPAY | END 2022-06-02 10:01 | disposition home or self-care (01) | LOC: HO.LNP 10:00 | PROVIDERS: Visit Provider Hospitalist | DX: Z13.89 Encounter for screening for other disorder (principal) ==

== ENCOUNTER 2022-07-22 11:29 | Outpatient (REF) | payer OTHER, SELFPAY ==
[2022-07-22 14:00] LABS: MANUAL DIFF FLAG NO
[2022-07-22 14:18] LABS: Basophils Absolute Auto 0.1 X10*3/uL (0.0-0.2); Basophils Percent Auto 0.6 % (0-2); Eosinophils Absolute Auto 0.2 X10*3/uL (0.0-0.4); Hemoglobin 13.6 g/dl (12.0-16.0); Imm Gran Abs Auto 0.02 X10*3/uL (0.00-0.03); Imm Gran Pct Auto 0.3 % (0.0-0.4); Lymphocytes Absolute Auto 1.7 X10*3/uL (1.2-4.9); Lymphocytes Percent Auto 21.7 % (20-40); Mean Corpuscular HGB Conc 30.2 g/dl (31.0-35.0); Mean Corpuscular Volume 85.9 fL (80.0-98.0); Mean Platelet Volume 10.9 fL (9.4-12.3); Monocytes Absolute Auto 0.7 X10*3/uL (0.1-1.2); Monocytes Percent Auto 8.3 % (2-11); Neutrophils Absolute Auto 5.2 x10*3/uL (2.0-8.3); Neutrophils Percent Auto 66.1 % (45-73); Platelet Count 299 X10*3/uL (160-400); Red Blood Count 5.24 X10*6/uL (4.20-5.50); Red Cell Distribution Width 15.2 % (11.0-16.0); White Blood Count 7.9 X10*3/uL (4.8-10.8)
[2022-07-22 14:42] LABS: Anion Gap 10 (12-20); Blood Urea Nitrogen 11 mg/dL (9-16); Calcium 9.4 mg/dL (8.4-10.2); Carbon Dioxide 31 mmol/L (22-29); Chloride 106 mmol/L (96-108); Estimated Glomerular Filt Rate > 60; Glucose Random 69 mg/dL (60-115); Potassium 4.1 mmol/L (3.3-5.1); Sodium 143 mmol/L (135-145)
[2022-07-22 14:50] LABS: TSH reflex Free T4 1.21 uIU/mL (0.32-4.0); Vitamin D 25-OH Total 38.3 ng/mL (>30)
== END 2022-07-22 11:30 | disposition home or self-care (01) ==
LOC: HO.WFDLDS 11:29
PROVIDERS: Visit Provider Nurse Practitioner Family
DX: R53.83 Other fatigue (principal)
CPT/HCPCS: 36415; 80048; 82306; 84443; 85025

== ENCOUNTER 2022-07-26 17:33 | Outpatient (REF) | payer OTHER, SELFPAY ==
[2022-07-26 17:42] LABS: Appearance Urine Cloudy; Color Urine Yellow; Glucose Urine UA Negative (Negative); Leukocyte Esterase Urine Large (3+) (Negative); Nitrite Urine Positive (Negative); PH 6.5 (5.0-9.0); Specific Gravity - Urine <= 1.005 (1.005-1.025); UMIC TRIGGER UACC YES; Urine Blood Trace (Negative); Urine Ketones Negative (Negative); Urine Protein Negative (Neg-Trace)
[2022-07-26 17:44] LABS: Bacteria Urine 4+ (None Seen); Hyaline Casts Urine 0-2 /LPF (0-2); RBC Urine 0-2 /HPF (0-2); Squamous Epithelial Cell Urine 0-2 /HPF (0-2); UACC Culture Trigger YES; WBC Urine >50 /HPF (0-5)
== END 2022-07-26 17:34 | disposition home or self-care (01) ==
LOC: HO.LNP 17:33
PROVIDERS: Visit Provider Nurse Practitioner Family
DX: N89.8 Other specified noninflammatory disorders of vagina (principal); R53.83 Other fatigue
CPT/HCPCS: 81001; 87086; 87088; 87186

== ENCOUNTER 2022-09-16 09:42 | Outpatient (AMB) | payer OTHER, SELFPAY ==
--- NOTE | 2022-09-16 09:48 | A.OFFVIS_ITS ---
Intake Vital Signs 09/16/22 09:52 Height 5 ft 6.5 in Weight 148 lb BMI 23.5 BP 118/70 Intake Visit Reasons: vag itch w/spotting/pcp referral Intake Note: vaginal itch and bloody discharge also has experience burning when urination. Chemical Processing Supervisor Required: Yes Chemical Processing Supervisor Language: Croatian Information Interpreted: non-clinical & clinical Industrial Painter: Industrial Painter Present (Aidyn) Accompanied by: Other Relationship Allergies apple [Apple] Allergy (Severe, Verified 09/16/22 09:54) THROAT SWELLING pollen extracts [POLLEN] Allergy (Intermediate, Verified 09/16/22 09:54) SNEEZING COUGHING ALOT kiwi [Kiwi (Actinidia Chinensis)] Adverse Reaction (Intermediate, Verified 09/16/22 09:54) VOMITING avocado [Avocado] Adverse Reaction (Mild, Verified 09/16/22 09:54) VOMITING Medication List - Last Reconciled 09/16/22 by Alisa Keller CNM amlodipine 5 mg PO DAILY 30 days ascorbic acid (vitamin C) 1 g PO DAILY aspirin 81 mg PO DAILY atorvastatin 40 mg PO DAILY levetiracetam 1,000 mg PO BID miscellaneous medical supply Disposable Diaper-PullUps. size large 8x daily As directed, 30 day supply multivitamin 1 tab PO DAILY rivaroxaban (Xarelto) 20 mg PO DAILY sennosides (senna) 8.6 mg PO DAILY PRN Is last menstrual period known: No Post menopausal: Yes HPI vag itch w/spotting/pcp referral HPI Details Patient is is accompanied by her niece for this visit to evaluate severe vaginal itching that she has had for a while patient tells me that it is making it hard for her to sleep she is incontinent of urine and so needs to use 'depends' and she sleeps with them as well she sits most of the time but she does walk around the apartment with the assistance of her family members and rampman who care for her. She is not diabetic. [facility] Medical History (Updated 09/16/22 @ 10:35 by Alisa Keller CNM) Abscess Bladder incontinence Brain cancer Closed fracture of fibula with routine healing DVT (deep venous thrombosis) Encounter for palliative care Essential hypertension Fracture of distal end of fibula HTN (hypertension) Insomnia Metabolic alkalosis with respiratory acidosis PAC (premature atrial contraction) Physical exam, annual PVC (premature ventricular contraction) Right ankle pain Sebaceous cyst of axilla Seizure Stroke Symptomatic PVCs Torticollis, acquired Unspecified urinary incontinence UTI (urinary tract infection), bacterial Surgical History (Updated 09/16/22 @ 09:57 by CELIA Paulino) H/O craniotomy Hx of section Hx of tubal ligation Family History Mother Diabetes Father Heart disease Family/Other Breast cancer Brain cancer Diabetes Social History Household Members: Spouse Housing: House Housing Other:: Lives with Spouse Unable to assess alcohol history related to: Unknown Alcohol intake: never Patient Tobacco Use Status: Never used Tobacco e-Cigarette/Vaping Use: Never Used Second Hand Smoke Exposure: No Advance Directives Date on File: 02/12/20 service: No Current occupational status: unemployed and disabled Current occupation: right handed Cognitive needs: Yes Hearing needs: No Vision needs: No Female Reproductive History Menstrual Age of Menarche: 9 control method: other (tubal ligation) Total pregnancies: 3 Full term: 3 Number of Living Children: 3 Physical Exam Vital Signs: Last Vital Signs BP 118/70 09/16/22 09:52 BMI result Body Mass Index 23.5 Other: External skin is clean and dry and in excellent condition labia minora and in started part of labia majora are inflamed and very reddened consistent with yeast from constant approximation of mucosal membranes and use of depend type underwear and incontinence pads Assessment & Plan Assessment & Plan (1) Pruritus of vagina: Code(s): N89.8 - Other specified noninflammatory disorders of vagina (2) Unspecified urinary incontinence: Code(s): R32 - Unspecified urinary incontinence (3) Yeast infection involving the vagina and surrounding area: Code(s): B37.31 - Acute candidiasis of vulva and vagina Plan Evident the patient is very well taken care of and her skin integrity is very good. The challenge of allowing air to the vagina and vulva in the face of incontinence and need for use of incontinence products to manage is acknowledged. They are using very plain water and no products with any sense or wipes and have removed any soaps or any other irritants already. Discussed the very real challenges when somebody is either being capacitated either in bed or sitting or both. Encouraged any creative thinking for allowing more air to her vulva especially at night perhaps with removing the depends completely but using incontinence products underneath and of cotton barrier over so there is no perspiration or minimized. In terms of medication Monistat was an excellent choice I am suggesting the use of Diflucan. And I am prescribing it to be repeated in 3 days if there is no relief which there may not be. And I am sending for more refills patient is going to be seeing her primary care provider right after this visit and if she feels that daily use of Diflucan might be beneficial and would not be contraindicated with her other medications that is also in an acceptable way to go but I do not want to over prescribe at this point. Continue excellent care. Medications: New fluconazole may repeat second dose 72 hrs after first dose if symptoms persist 150 mg PO Q3D 2 doses 2 tabs 4RF miconazole nitrate 2% (Miconazole-7) 1 appful vaginal BEDTIME 7 days 45 grams 4RF Coding Level of Care Code New Pt Level 3 (25952) Diagnoses Pruritus of vagina N89.8 Unspecified urinary incontinence R32 Yeast infection involving the vagina and surrounding area B37.31
[2022-09-16 09:52] VITALS: BP 118/70; BMI 23.5
== END 2022-09-16 10:41 | disposition home or self-care (01) ==
LOC: HO.HWS 09:42
PROVIDERS: PCP Hospitalist; Visit Provider Advanced Practice Midwife
DX: N89.8 Other specified noninflammatory disorders of vagina (principal); R32 Unspecified urinary incontinence; B37.31 Acute candidiasis of vulva and vagina
CPT/HCPCS: 99203

== ENCOUNTER → 2022-09-16 09:42 | Outpatient (BNVA) | payer OTHER, SELFPAY | PROVIDERS: PCP Hospitalist; Visit Provider Advanced Practice Midwife | DX: N89.8 Other specified noninflammatory disorders of vagina (principal); R32 Unspecified urinary incontinence; B37.31 Acute candidiasis of vulva and vagina | CPT/HCPCS: 99202 ==

== ENCOUNTER 2022-09-16 12:40 | Outpatient (AMB) | payer OTHER, SELFPAY ==
[2022-09-16 12:51] VITALS: BP 122/68; PULSE 77; RESP 12; TEMP 36.2; O2SAT 99; BMI 23.5
--- NOTE | 2022-09-16 12:51 | MHC.PC.OV ---
Vital Signs 09/16/22 12:51 Height 5 ft 6.5 in Weight 148 lb BMI 23.5 BP 122/68 Blood Pressure Location Lt brachial Position Sitting Respiration 12 Pulse 77 Pulse Source Pulse Oximeter Temp 97.1 F Temp Source Temporal Artery Scan Pulse Oximetry (%) 99 Oxygen Delivery Method Room Air Intake Visit Reasons: 1 mth follow up Intake Note: Patient's daughter states that lately she has been very tired. Patient's daughter states that patient would like to go over labs that were done last month. Manager Ecommerce Required: No Accompanied by: Family/Other Allergies apple [Apple] Allergy (Severe, Verified 09/16/22 13:12) THROAT SWELLING pollen extracts [POLLEN] Allergy (Intermediate, Verified 09/16/22 13:12) SNEEZING COUGHING ALOT kiwi [Kiwi (Actinidia Chinensis)] Adverse Reaction (Intermediate, Verified 09/16/22 13:12) VOMITING avocado [Avocado] Adverse Reaction (Mild, Verified 09/16/22 13:12) VOMITING Medication List - Last Reconciled 09/16/22 by Neto Aguirre CNP amlodipine 5 mg PO DAILY 30 days ascorbic acid (vitamin C) 1 g PO DAILY aspirin 81 mg PO DAILY atorvastatin 40 mg PO DAILY fluconazole 150 mg PO Q3D 2 doses levetiracetam 1,000 mg PO BID miconazole nitrate 2% (Miconazole-7) 1 appful vaginal BEDTIME 7 days miscellaneous medical supply Disposable Diaper-PullUps. size large 8x daily As directed, 30 day supply multivitamin 1 tab PO DAILY rivaroxaban (Xarelto) 20 mg PO DAILY sennosides (senna) 8.6 mg PO DAILY PRN Tobacco use date assessed: 03/30/22 Fall risk assessment: 1 Fall in past year Last assessed Fall Risk: 09/16/22 Dental Screening Dental Screen Date: 09/16/22 Did you have a dental visit in the last 12 months?: No Did you have a dental problem in the last 6 months where you did not have access to dental care?: No Was dental information given to patient?: Yes HPI HPI Comments History of Present Illness Details 67-year-old female, accompanied with her gerson, presents for a follow-up visit. On her last visit, she presented complaints of fatigue and vaginal itching. She was treated for UTI. CBC, BMP, TSH, and vitamin D levels were unremarkable. Her daughter reports continued fatigue. No weakness. Her daughter notes that the patient usually walks with her walker for exercise. She uses a wheelchair for long distances. She was seen by Gynecology today. Miconazole and fluconazole was prescribed for vaginal itching. [facility], [facility] Medical History Abscess Bladder incontinence Brain cancer Closed fracture of fibula with routine healing DVT (deep venous thrombosis) Encounter for palliative care Essential hypertension Fracture of distal end of fibula HTN (hypertension) Insomnia Metabolic alkalosis with respiratory acidosis PAC (premature atrial contraction) Physical exam, annual PVC (premature ventricular contraction) Right ankle pain Sebaceous cyst of axilla Seizure Stroke Symptomatic PVCs Torticollis, acquired Unspecified urinary incontinence UTI (urinary tract infection), bacterial Surgical History H/O craniotomy Hx of section Hx of tubal ligation Family History Mother Diabetes Father Heart disease Family/Other Breast cancer Brain cancer Diabetes Social History Household Members: Spouse Housing: House Housing Other:: Lives with Spouse Unable to assess alcohol history related to: Unknown Alcohol intake: never Patient Tobacco Use Status: Never used Tobacco e-Cigarette/Vaping Use: Never Used Second Hand Smoke Exposure: No Advance Directives Date on File: 02/12/20 service: No Current occupational status: unemployed and disabled Cognitive needs: No Hearing needs: No Vision needs: No Female Reproductive History Menstrual Age of Menarche: 9 Review of Systems Const Details: Const Denies chills, Denies fatigue, Denies fever(s), Denies headache(s) and Denies weakness ENT Denies dizziness and Denies headache(s) Card Denies chest pain, Denies lightheadedness, Denies dyspnea and Denies other (Palpitations) Resp Denies cough, Denies dyspnea, Denies wheezing and Denies other ( shortness of breath) GI Denies abdominal pain, Denies melena, Denies hematochezia, Denies change in bowel habits, Denies dyspepsia and Denies nausea Denies hematuria and Denies dysuria Musc Denies abnormal gait, Denies myalgias, Denies arthralgias, Denies numbness and Denies tingling Skin/Breast Denies rash, Denies unusual bruising and Denies wounds Neuro Denies abnormal gait, Denies dizziness, Denies headache(s), Denies memory loss, Denies numbness, Denies Sensory deficit (Neuro), Denies tingling and Denies weakness Psych Denies anxiety and Denies depression Endo Denies fatigue Aller/Immun Denies wheezing Physical exam (Primary Care) Vital Signs: Last Vital Signs Temp 97.1 F 09/16/22 12:51 Pulse 77 09/16/22 12:51 Resp 12 09/16/22 12:51 BP 122/68 09/16/22 12:51 Pulse Ox 99 09/16/22 12:51 Oxygen Delivery Method Room Air 09/16/22 12:51 BMI result Body Mass Index 23.5 Tobacco/Smoking Status: Tobacco use Status Tobacco use date assessed 03/30/22 09/16/22 12:57 Patient Tobacco Use Status Never used Tobacco 09/16/22 12:57 e-Cigarette/Vaping Use Never Used 09/16/22 12:57 Const Other: General: no acute distress and well developed Nutritional Appearance: well nourished Orientation/consciousness: patient oriented x3 HENMT Head: Yes normocephalic and Yes atraumatic Eyes General: appearance normal, both eyes and all related structures Pupils: Equal, round and reactive pupils present EOM: EOMs intact bilaterally Resp Effort & Inspection: normal respiratory effort Auscultation: clear to auscultation bilaterally Cardio Rate: regular rate Rhythm: regular rhythm Heart sounds: S1 normal heart sound present, S2 normal heart sound present, no gallops, no murmurs and no rubs GI Palpation (GI): No Abdominal aortic bruit present, Soft to palpation, nontender, No hepatosplenomegaly present and No Rebound tenderness present Auscultation: normal bowel sounds General: Yes no CVA tenderness Back/Spine/Pelvis Back: no CVA tenderness Cervical Spine: cervical ROM normal and No Cervical spine tenderness Thoracic/Lumbar Spine: thoraco-lumbar ROM normal, No pain with thoraco-lumbar ROM, No thoracic spinal tenderness and No lumbar spinal tenderness Extrem General: Yes normal to inspection, No edema and No calf tenderness Skin General: warm and dry. Normal skin color. Normal skin turgor Lesions: no lesions Rashes: no rashes Trauma: no lacerations or abrasions Wounds: no wounds Nails: normal Neuro General: patient oriented x3 Cranial nerves: Yes Equal, round and reactive pupils present Cognition (Neuro): normal cognition Sensory Exam: No Sensory deficit (Neuro) Psych Affect: normal affect Assessment and Plan Assessment & Plan (1) Fatigue: Code(s): R53.83 - Other fatigue Plan: Recent blood work is normal Encouraged to expand activities to improve energy level Continue with current treatment for vaginal itching per gynecology. Follow-up as planned Follow-up with PCP in 2-3 months or return sooner with worsening or new symptoms Verbalized understanding and agreed with treatment plan. Coding Level of Care Code Est Pt Level 3 (53715) Diagnoses Fatigue R53.83 Time Spent (min) 23
== END 2022-09-16 13:24 | disposition home or self-care (01) ==
PROVIDERS: PCP Hospitalist; Visit Provider Nurse Practitioner Family
DX: R53.83 Other fatigue (principal)
CPT/HCPCS: 99213

== ENCOUNTER 2022-10-07 13:03 | Outpatient (REF) | payer OTHER, SELFPAY | END 2022-10-07 13:04 | disposition home or self-care (01) | LOC: HO.MAMMO 13:03 | PROVIDERS: Visit Provider Hospitalist | DX: Z13.89 Encounter for screening for other disorder (principal) ==

== ENCOUNTER 2022-10-16 11:56 | Emergency (ER) | payer OTHER, SELFPAY ==
[2022-10-16 12:08] VITALS: BP 141/76; PULSE 75; RESP 18; TEMP 36.3; O2SAT 98; BMI 25.0
--- NOTE | 2022-10-16 12:08 | ED_ITS ---
HPI - Female Genitourinary General Chief complaint: Vaginal Bleeding Stated complaint: vaginal bleeding Time Seen by Provider: 10/16/22 12:26 Source: patient Mode of arrival: ambulatory Limitations: other (poor historian ) History of Present Illness HPI Narrative: Patient is a 67 year old female history of urinary incontinence, DVT, hypertension, brain cancer (grade 3 anaplastic astrocytoma) in 2009, s/p surgery and chemo and radiation at [facility] in [facility], presenting with family who are concerned she has a UTI. Niece gives the history over the phone in the room. She reports that family has noticed her urine has had an odor to it and they have also noticed blood in her urine going on for the past few days. She reports they are concerned she may have a urinary tract infection. Niece reports that they usually take her to the bathroom every two hours so she cannot endorse if there has been increased frequency or urgency. ENVIRONMENTAL TECH at bedside states shes concerned this may be vaginal bleeding because she has had episodes of this in the past and shes not sure if thats going on today. Denies fever, chills, nausea, vomiting, constipation, diarrhea, abdominal pain or back pain. Elva on riveroxaban Related Data Home Medications Medication Instructions Recorded Confirmed multivitamin 1 tab PO DAILY 03/30/22 09/16/22 sennosides 8.6 mg tablet (senna) 8.6 mg PO DAILY PRN 03/30/22 09/16/22 levetiracetam 100 mg/mL oral 1,000 mg PO BID 05/30/22 09/16/22 solution ascorbic acid (vitamin C) 1,000 mg 1 g PO DAILY 07/22/22 09/16/22 capsule Previous Rx's Medication Instructions Recorded aspirin 81 mg tablet,delayed 81 mg PO DAILY #90 tabs 04/21/22 release atorvastatin 40 mg tablet 40 mg PO DAILY #90 tabs 04/21/22 rivaroxaban 20 mg tablet (Xarelto) 20 mg PO DAILY #90 tabs 04/21/22 fluconazole 150 mg tablet 150 mg PO Q3D 2 doses #2 tabs 09/16/22 miconazole nitrate 2 % vaginal 1 appful vaginal BEDTIME 7 days 09/16/22 cream (Miconazole-7) #45 grams miscellaneous medical supply #240 ea 10/05/22 miscellaneous medical supply See Rx Instructions miscellaneous 10/12/22 .COMPLEX 30 days #100 ea amlodipine 5 mg tablet 5 mg PO DAILY 30 days #30 tabs 10/15/22 cefuroxime axetil 250 mg tablet 250 mg PO BID 7 days #14 tabs 10/16/22 Allergies Allergy/AdvReac Type Severity Reaction Status Date / Time apple [Apple] Allergy Severe THROAT Verified 09/16/22 13:12 SWELLING pollen extracts [POLLEN] Allergy Intermediate SNEEZING Verified 09/16/22 13:12 COUGHING ALOT kiwi AdvReac Intermediate VOMITING Verified 09/16/22 13:12 [Kiwi (Actinidia Chinensis)] avocado [Avocado] AdvReac Mild VOMITING Verified 09/16/22 13:12 Review of Systems Review of Systems: Constitutional : No Weight loss, No Fever, No Chills, No Fatigue, No Malaise ENT/Mouth : No sore throat, No Rhinorrhea Eyes: No Eye Pain, No Swelling, No Redness Cardiovascular : No Chest Pain, No SOB, No Dyspnea on Exertion, No Orthopnea, No Edema, No Palpitations Respiratory : No Cough, No Sputum, No Wheezing Gastrointestinal : No Nausea, No Vomiting, No Diarrhea, No Constipation, No abdominal Pain, No Hematochezia, No Melena Genitourinary : No Dysuria, + Urinary Frequency, + Hematuria, Musculoskeletal : No joint pain, No Myalgias, No Joint Swelling Skin : No Skin Lesions, No rash Neuro : No Weakness, No Numbness, No Dizziness, No Headache Psych : No Anxiety/Panic, No Depression All other systems reviewed and are negative Yes all other systems are reviewed and are negative [facility] Past Medical History Attestation statement: The following information was validated with the patient. Source: old records reviewed and nursing notes reviewed Medical History Abscess Bladder incontinence Brain cancer Closed fracture of fibula with routine healing DVT (deep venous thrombosis) Encounter for palliative care Essential hypertension Fracture of distal end of fibula HTN (hypertension) Insomnia Metabolic alkalosis with respiratory acidosis PAC (premature atrial contraction) Physical exam, annual PVC (premature ventricular contraction) Right ankle pain Sebaceous cyst of axilla Seizure Stroke Symptomatic PVCs Torticollis, acquired Unspecified urinary incontinence UTI (urinary tract infection), bacterial Surgical History H/O craniotomy Hx of section Hx of tubal ligation Family History Family History Mother Diabetes Father Heart disease Family/Other Breast cancer Brain cancer Diabetes Social History Social History Household Members: Spouse Housing: House Housing Other:: Lives with Spouse Unable to assess alcohol history related to: Unknown Alcohol intake: never Patient Tobacco Use Status: Never used Tobacco e-Cigarette/Vaping Use: Never Used Second Hand Smoke Exposure: No Advance Directives: Yes Advance Directives on File: Yes Advance Directives Date on File: 02/12/20 service: No Current occupational status: unemployed and disabled Cognitive needs: No Hearing needs: No Vision needs: No Physical Exam Vital Signs: Vital Signs: Last Vital Signs Temp 97.4 F 10/16/22 12:08 Pulse 77 10/16/22 13:04 Resp 18 10/16/22 13:04 BP 138/68 10/16/22 13:04 Pulse Ox 100 10/16/22 13:04 O2 Del Method Room Air 10/16/22 13:04 BMI result Body Mass Index 25.0 vss Appearance: Alert.? Oriented X3.? No acute distress.? Head: Normocephalic, atraumatic, no step-offs or deformities Eyes: Pupils equal, round and reactive to light.? CVS: Normal heart rate and rhythm.? Pulses normal.? Respiratory: No respiratory distress.? Breath sounds normal.? Abdomen: Soft and nontender.? Skin: Skin warm and dry.? Normal skin color.? Normal skin turgor.? Extremities: No lower extremity edema.? No calf ttp. global weakness Back: No CVA tenderness bilaterally Neuro: Oriented X 3.? No motor deficit.? No sensory deficit. CN 2-12 intact Sensitive exam: Normal external genitalia, vaginal canal without discharge, or blood. Closed cervical os. Patient's rectal exam with normal tone, no internal or external hemorrhoids, no anal tears, no gross blood noted on exam. Cande Sandoval at bedside ( verbal consent obtained prior to exam) Course Course Course Narrative: This is an RME: Additional HPI, ROS, PE not included below will be deferred to primary provider. Patient is a 67-year-old female who presents to the emergency department for evaluation of vaginal bleeding described as spotting and, foul odor in pamper, incontinence at baseline. Onset of symptoms was 1 week ago. Of note, she was seen by OBGYN 1 month ago for vaginal pruritus and spotting in addition to dysuria, that time she was diagnosed with candidiasis prescribed Diflucan and vaginal miconazole which completely resolved her symptoms. Plan: Urogenital examination, ? Urinalysis Reevaluation(s) Reevaluation #1: CBC within normal limits, no signs of acute blood loss anemia. Chemistry unremarkable appears to be at patients baseline. UA with infection, 4+ bacteria, positive nitrates and white blood cells. Will start her on p.o. Ceftin. OBS pending. Time: 14:15 Reevaluation #2: OBS negative. No signs of lower GIB. At this time patient will be discharged advised to return with new or worsening symptoms. Will treat her for UTI Educated patient on diagnosis and treatment plan, answered all question, patient verbalizes understanding. At this time patient will be discharged home, advised to return with new or worsening symptoms. Educated on worrisome signs and symptoms and when to return. At this time I feel comfortable discharge home. Time: 14:16 Medications Administered Discontinued Medications Generic Name Dose Route Start Last Admin Trade Name Freq PRN Reason Stop Dose Admin Cefuroxime Axetil 250 mg 10/16/22 14:14 10/16/22 14:26 Cefuroxime Axetil 250 Mg Tablet PO 10/16/22 14:15 250 mg ONCE ONE Administration Medical Decision Making Medical Decision Making [facility] Narrative: 12:35 67 year old female disabled female presenting with concern for a UTI and family is also concerned for possible vaginal bleeding Exam benign. This is likely a urinary tract infection based on the history. Unlikely kidney stone or pyelonephritis given lack of flank pain, fevers or chills. Unlikely candidiasis given lack of vaginal discharge and puritis. No appreciated bleeding and vaginal canal unlikely acute vaginal bleeding or dysfunctional uterine bleeding. Malignancy cannot be excluded of patient has been experiencing vaginal bleeding and I did advise him to follow-up with OBGYN if she has episodes of vaginal bleeding. I will rule out electrolyte abnormalities and acute blood loss anemia although unlikely. Unlikely lower GI bleed however OBS was sent Plan: urine , basic labs No abdominal tenderness to palpation, no associated pain no need for imaging at this time. Patient to follow-up with OBGYN for further workup if she has been experiencing vaginal bleeding however on today's visit there is no appreciated vaginal or rectal bleeding. Differential Diagnosis Differential Diagnoses: The differential diagnosis associated with the presentation includes This is likely a urinary tract infection based on the history. Unlikely kidney stone or pyelonephritis given lack of flank pain, fevers or chills. Unlikely candidiasis given lack of vaginal discharge and puritis. No appreciated bleeding and vaginal canal unlikely acute vaginal bleeding or dysfunctional ut erine bleeding. Malignancy cannot be excluded of patient has been experiencing vaginal bleeding and I did advise him to follow-up with OBGYN if she has episodes of vaginal bleeding. I will rule out electrolyte abnormalities and acute blood loss anemia although unlikely. Unlikely lower GI bleed however OBS was sent Admission/Observation Consideration of admission/observation: Escalation of care including admission/observation considered Not indicated/ Lab Data MDM Lab Attestation statement: I reviewed the patient's lab results. 10/16/22 14:04 10/16/22 14:04 Labs: Lab Results 10/16/22 10/16/22 10/16/22 Range/Units 13:00 14:04 14:04 WBC 8.2 (4.8-10.8) X10*3/uL RBC 4.72 (4.20-5.50) X10*6/uL Hgb 12.9 (12.0-16.0) g/dl Hct 41.7 (37.0-47.0) % MCV 88.3 (80.0-98.0) fL MCH 27.3 (27.0-33.0) pg MCHC 30.9 L (31.0-35.0) g/dl RDW 14.0 (11.0-16.0) % Plt Count 262 (160-400) X10*3/uL MPV 10.3 (9.4-12.3) fL Immature Gran % (Auto) 0.2 (0.0-0.4) % Neut % (Auto) 64.2 (45-73) % Lymph % (Auto) 22.9 (20-40) % [place] % (Auto) 9.4 (2-11) % Eos % (Auto) 2.7 (0-4) % Baso % (Auto) 0.6 (0-2) % Lymph # (Auto) 1.9 (1.2-4.9) X10*3/uL [place] # (Auto) 0.8 (0.1-1.2) X10*3/uL Eos # (Auto) 0.2 (0.0-0.4) X10*3/uL Baso # (Auto) 0.1 (0.0-0.2) X10*3/uL Abs Immat Gran (auto) 0.02 (0.00-0.03) X10*3/uL Absolute Neuts (auto) 5.3 (2.0-8.3) x10*3/uL Absolute Nucleated RBC 0.000 (0.0-0.012) X10*3/uL Nucleated RBC % (auto) 0.0 (0.0-0.2) /100WBC Sodium 145 (135-145) mmol/L Potassium 3.8 (3.3-5.1) mmol/L Chloride 108 (96-108) mmol/L Carbon Dioxide 31 H (22-29) mmol/L Anion Gap 10 L (12-20) BUN 14 (9-16) mg/dL Creatinine 0.72 (0.5-1.4) mg/dL Estim Creat Clear Calc 70.0 Estimated GFR > 60 Random Glucose 84 (60-115) mg/dL Calcium 9.4 (8.4-10.2) mg/dL Total Bilirubin 0.3 (0.0-1.0) mg/dL AST 17 (5-31) U/L ALT 23 (0-31) U/L Alkaline Phosphatase 101 (39-117) U/L Total Protein 7.0 (6.5-8.0) g/dL Albumin 3.6 (3.5-5.0) g/dL Urine Color Yellow Urine Appearance Turbid Urine pH 5.5 (5.0-9.0) Ur Specific Spring >= 1.030 H (1.005-1.025) Urine Protein 30 (1+) H (Neg-Trace) mg/dL Urine Glucose (UA) Negative (Negative) mg/dL Urine Ketones Trace (Negative) mg/dL Urine Blood Large (3+) H (Negative) Urine Nitrite Positive H (Negative) Ur Leukocyte Esterase Large (3+) H (Negative) Urine RBC 6-10 H (0-2) /HPF Urine WBC >50 H (0-5) /HPF Ur Squamous Epith Cells 11-20 (0-2) /HPF Urine Bacteria 4+ (None Seen) Hyaline Casts 3-5 (0-2) /LPF Stool Occult Blood (NEGATIVE) 10/16/22 Range/Units 14:04 WBC (4.8-10.8) X10*3/uL RBC (4.20-5.50) X10*6/uL Hgb (12.0-16.0) g/dl Hct (37.0-47.0) % MCV (80.0-98.0) fL MCH (27.0-33.0) pg MCHC (31.0-35.0) g/dl RDW (11.0-16.0) % Plt Count (160-400) X10*3/uL MPV (9.4-12.3) fL Immature Gran % (Auto) (0.0-0.4) % Neut % (Auto) (45-73) % Lymph % (Auto) (20-40) % [place] % (Auto) (2-11) % Eos % (Auto) (0-4) % Baso % (Auto) (0-2) % Lymph # (Auto) (1.2-4.9) X10*3/uL [place] # (Auto) (0.1-1.2) X10*3/uL Eos # (Auto) (0.0-0.4) X10*3/uL Baso # (Auto) (0.0-0.2) X10*3/uL Abs Immat Gran (auto) (0.00-0.03) X10*3/uL Absolute Neuts (auto) (2.0-8.3) x10*3/uL Absolute Nucleated RBC (0.0-0.012) X10*3/uL Nucleated RBC % (auto) (0.0-0.2) /100WBC Sodium (135-145) mmol/L Potassium (3.3-5.1) mmol/L Chloride (96-108) mmol/L Carbon Dioxide (22-29) mmol/L Anion Gap (12-20) BUN (9-16) mg/dL Creatinine (0.5-1.4) mg/dL Estim Creat Clear Calc Estimated GFR Random Glucose (60-115) mg/dL Calcium (8.4-10.2) mg/dL Total Bilirubin (0.0-1.0) mg/dL AST (5-31) U/L ALT (0-31) U/L Alkaline Phosphatase (39-117) U/L Total Protein (6.5-8.0) g/dL Albumin (3.5-5.0) g/dL Urine Color Urine Appearance Urine pH (5.0-9.0) Ur Specific Spring (1.005-1.025) Urine Protein (Neg-Trace) mg/dL Urine Glucose (UA) (Negative) mg/dL Urine Ketones (Negative) mg/dL Urine Blood (Negative) Urine Nitrite (Negative) Ur Leukocyte Esterase (Negative) Urine RBC (0-2) /HPF Urine WBC (0-5) /HPF Ur Squamous Epith Cells (0-2) /HPF Urine Bacteria (None Seen) Hyaline Casts (0-2) /LPF Stool Occult Blood NEGATIVE (NEGATIVE) Core Measures AMI core measures followed: Yes Measure exclusions: not indicated Critical Care Time Critical Care Time Critical Care Time: No Discharge Plan Discharge Clinical Impression: Urinary tract infection Patient Disposition: Home, Self-Care Instructions: Urinary Tract Infection in Women (ED) Additional Instructions: Take your medications as prescribed. If you were prescribed antibiotics today, it is important that you take your medication to their entirety, do not skip any doses, do not finish them early. Follow-up with your primary care provider this week. Return to the emergency department with new or worsening symptoms. Such as fevers, chills, chest pain, shortness of breath, nausea, vomiting, dizziness, headache, vision changes, lethargy In case of emergency call 911 Prescriptions: New cefuroxime axetil 250 mg tablet 250 mg PO BID 7 Days Qty: 14 0RF No Action aspirin 81 mg tablet,delayed release (DR/EC) 81 mg PO DAILY Qty: 90 3RF atorvastatin 40 mg tablet 40 mg PO DAILY Qty: 90 3RF Xarelto 20 mg tablet 20 mg PO DAILY Qty: 90 3RF Rx Instructions: must administer with evening meal (DME) miscellaneous medical supply Misc See Rx Instructions .ROUTE .MEDSUPPLY Qty: 240 6RF Rx Instructions: Disposable Diaper-PullUps. size large 8x daily As directed, 30 day supply miscellaneous medical supply Misc See Rx Instructions miscellaneous .COMPLEX 30 Days Qty: 100 0RF Rx Instructions: disposable bed pads. amlodipine 5 mg tablet 5 mg PO DAILY 30 Days Qty: 30 1RF multivitamin Tablet 1 tab PO DAILY sennosides [senna] 8.6 mg tablet 8.6 mg PO DAILY PRN ascorbic acid (vitamin C) 1,000 mg capsule 1 g PO DAILY levetiracetam 100 mg/mL solution 1,000 mg PO BID fluconazole 150 mg tablet 150 mg PO Q3D 0 Days Qty: 2 4RF Rx Instructions: may repeat second dose 72 hrs after first dose if symptoms persist miconazole nitrate [Miconazole-7] 2 % cream 1 appful vaginal BEDTIME 7 Days Qty: 45 4RF Referrals: Nicole Denny NP [Primary Care Provider] - 2 days Stand Alone Forms: Work/School Release
[2022-10-16 13:04] VITALS: BP 138/68; PULSE 77; RESP 18; O2SAT 100
[2022-10-16 13:31] LABS: Appearance Urine Turbid; Color Urine Yellow; Glucose Urine UA Negative (Negative); Leukocyte Esterase Urine Large (3+) (Negative); Nitrite Urine Positive (Negative); PH 5.5 (5.0-9.0); Specific Gravity - Urine >= 1.030 (1.005-1.025); UMIC TRIGGER UACC YES; Urine Blood Large (3+) (Negative); Urine Ketones Trace mg/dL (Negative); Urine Protein 30 (1+) mg/dL (Neg-Trace)
--- NOTE | 2022-10-16 13:38 | PC.NURSE ---
pt straight cathed; pt tolerated well. no blood present in urine; clear yellow drained.
[2022-10-16 13:40] LABS: Bacteria Urine 4+ (None Seen); UACC Culture Trigger YES; WBC Urine >50 /HPF (0-5)
[2022-10-16 14:09] LABS: MANUAL DIFF FLAG NO
[2022-10-16 14:12] LABS: Basophils Absolute Auto 0.1 X10*3/uL (0.0-0.2); Basophils Percent Auto 0.6 % (0-2); Eosinophils Absolute Auto 0.2 X10*3/uL (0.0-0.4); Eosinophils Percent Auto 2.7 % (0-4); Hematocrit 41.7 % (37.0-47.0); Hemoglobin 12.9 g/dl (12.0-16.0); Imm Gran Abs Auto 0.02 X10*3/uL (0.00-0.03); Imm Gran Pct Auto 0.2 % (0.0-0.4); Lymphocytes Absolute Auto 1.9 X10*3/uL (1.2-4.9); Lymphocytes Percent Auto 22.9 % (20-40); Mean Corpuscular HGB Conc 30.9 g/dl (31.0-35.0); Mean Corpuscular Hemoglobin 27.3 pg (27.0-33.0); Mean Corpuscular Volume 88.3 fL (80.0-98.0); Mean Platelet Volume 10.3 fL (9.4-12.3); Monocytes Absolute Auto 0.8 X10*3/uL (0.1-1.2); Monocytes Percent Auto 9.4 % (2-11); Neutrophils Absolute Auto 5.3 x10*3/uL (2.0-8.3); Neutrophils Percent Auto 64.2 % (45-73); Platelet Count 262 X10*3/uL (160-400); Red Blood Count 4.72 X10*6/uL (4.20-5.50); White Blood Count 8.2 X10*3/uL (4.8-10.8)
[2022-10-16 14:13] LABS: OBS1 NEGATIVE (NEGATIVE)
[2022-10-16 14:14] LABS: OBS Int Ctl Valid YES
[2022-10-16 14:26] LABS: Alanine Aminotransferase 23 U/L (0-31); Albumin Level 3.6 g/dL (3.5-5.0); Alkaline Phosphatase 101 U/L (39-117); Anion Gap 10 (12-20); Aspartate Amino Transferase 17 U/L (5-31); Bilirubin Total 0.3 mg/dL (0.0-1.0); Blood Urea Nitrogen 14 mg/dL (9-16); Calcium 9.4 mg/dL (8.4-10.2); Carbon Dioxide 31 mmol/L (22-29); Chloride 108 mmol/L (96-108); Estimated Glomerular Filt Rate > 60; Glucose Random 84 mg/dL (60-115); Potassium 3.8 mmol/L (3.3-5.1); Sodium 145 mmol/L (135-145)
== END 2022-10-16 15:17 | disposition home or self-care (01) ==
PROVIDERS: Physician Assistant; Emergency Provider Emergency Medicine; PCP Hospitalist
DX: N39.0 Urinary tract infection, site not specified (principal); N93.9 Abnormal uterine and vaginal bleeding, unspecified; I10 Essential (primary) hypertension; I82.409 Acute embolism and thrombosis of unspecified deep veins of unspecified lower extremity; Z86.03 Personal history of neoplasm of uncertain behavior; R32 Unspecified urinary incontinence; R31.9 Hematuria, unspecified
CPT/HCPCS: 36415; 80053; 81001; 82272; 85025; 87086; 87088; 87186; 99283; 99284

== ENCOUNTER 2022-12-03 13:59 | Inpatient (IN) | payer OTHER, SELFPAY ==
[2022-12-03] VITALS (7 sets, daily range): BP systolic 126–188; BP diastolic 68–92; PULSE 70–83; RESP 16–20; TEMP 36.8–37.3; O2SAT 97–100; BMI 26.3
--- NOTE | ~2022-12-03 | CT_ITS ---
EXAMINATION: CT HEAD WITHOUT CONTRAST CLINICAL INFORMATION: Mental status change. COMPARISON: CT head on 12/20/2021. TECHNIQUE: Contiguous axial imaging was performed from the skull base to vertex without intravenous administration of contrast. This CT examination was performed using dose optimization techniques as appropriate, variously including the following: *Automated exposure control *Adjustment of mA and/or kV according to patient size (this includes techniques or standardized protocols for targeted exams where dose is matched to indication/reason for exam; i.e. extremities or head) *Use of iterative reconstruction technique DLP: 1448 mGy-cm FINDINGS: Sequelae of prior left frontal craniotomy. Several hyperdense foci in the right anterior frontal lobe, likely postsurgical. Encephalomalacic changes in the bilateral frontal lobes, left basal ganglia, and right parietal occipital lobe. No acute intracranial hemorrhage or infarct. No midline shift or hydrocephalus. No acute extra-axial fluid collections. The osseous structures are unremarkable. No orbital pathology. The paranasal sinuses and mastoid air cells are clear. Atherosclerotic calcifications of the bilateral carotid siphons. CT/CT head/brain wo IV con IMPRESSION: No acute intracranial hemorrhage or infarct.
--- NOTE | ~2022-12-03 | CT_ITS ---
EXAMINATION: CT ANGIOGRAM HEAD CT ANGIOGRAM NECK CLINICAL INFORMATION: Reason for Exam AMS, headaches COMPARISON: Earlier same day noncontrast head CT TECHNIQUE: Initial noncontrast avionic technician imaging of the head and neck was performed. Comparison is made with noncontrast head CT from earlier today. Test bolus sequences followed by intravenous administration 70 mL of Omnipaque 350. Helical imaging was performed in the axial plane from the aortic arch to the skull vertex. Delayed postcontrast imaging of the head was also performed. The data was processed at the neurology technologist's workstation for generation of MIP sequences. Angled MIPs and volume rendered reformatted images were also generated at an offline 3D workstation. Stenoses are assessed in accordance with NASCET criteria unless otherwise indicated. DLP: 1931 mGy-cm This CT examination was performed using dose optimization techniques as appropriate, variously including the following: *Automated exposure control. *Adjustment of mA and/or kV according to patient size (this includes techniques or standardized protocols for targeted exams where dose is matched to indication/reason for exam; i.e. extremities or head). *Use of iterative reconstruction technique. FINDINGS: Interpretation of this study is technically limited secondary to patient head positioning which is tilted to the right and with the cervical spine in flexion as well as motion artifact.. CT Head: Postcontrast CT of the head is essentially nondiagnostic secondary to motion. Please refer to report from immediately preceding noncontrast head CT. No abnormal intracranial enhancement is identified. CT Neck: The thyroid gland and remaining cervical soft tissues are grossly within normal limits. Evaluation of the cervical spine is severely limited with suggestion of multilevel degenerative changes. No acute osseous abnormality is identified. No definite acute traumatic malalignment. CT Upper Chest: The visualized lung apices and upper mediastinum are within normal limits. Neck CTA: The cervical vertebral, common carotid, internal carotid artery superior grossly patent throughout their course. No high-grade stenosis is identified. Brain CTA: No proximal large vessel occlusion or high-grade stenosis of the intracranial arterial vasculature is identified. CT/CT angio head neck IMPRESSION: Interpretation of this study is significantly technically limited secondary to patient head and neck positioning. Within this limitation, no significant arterial narrowing in the neck is identified. No proximal intracranial arterial definite high-grade stenosis or large vessel occlusion.
--- NOTE | ~2022-12-03 | MR_ITS ---
EXAMINATION: MR BRAIN WITHOUT AND WITH CONTRAST CLINICAL INFORMATION: Question CVA, encephalopathy. COMPARISON: CTA head and neck on 12/03/2022 and MRI brain on 08/19/2019 TECHNIQUE: Multiplanar, multisequence MRI of the brain was obtained before and after the intravenous administration of 7.5 mL Gadavist. FINDINGS: Motion artifact is present. There is 4 mm enhancing focus in the left frontal lobe (series 15, image 54 of 80) with suggestion of associated restricted diffusion. Encephalomalacic and gliotic changes in the bifrontal lobes and left basal ganglia. No acute intracranial hemorrhage. Scattered and confluent periventricular white matter T2/FLAIR hyperintensities, nonspecific however commonly seen with small vessel ischemic disease. Diffuse prominence of the sulci with associated ex vacuo dilation of the ventricles compatible with global cerebral atrophy. 6 mm fibroid midline shift, likely chronic. No hydrocephalus. No acute extra-axial fluid collections. The osseous structures are unremarkable. The pituitary gland, pineal gland and remaining midline structures are unremarkable. No orbital pathology. The paranasal sinuses and mastoid air cells are clear. MR/MR head/brain wo/w con IMPRESSION: 4 mm enhancing focus in the left frontal lobe with suggestion of associated restricted diffusion. This is suggestive of subacute infarct.
--- NOTE | ~2022-12-03 | XR_ITS ---
EXAMINATION: XR CHEST CLINICAL INFORMATION: Altered mental status. Rule out pneumonia. COMPARISON: None available. TECHNIQUE: Frontal view of the chest was obtained. FINDINGS: The lungs are well-expanded and clear. The heart size and pulmonary vascularity is normal. No gross bony abnormality seen. XR/XR chest 1V IMPRESSION: Unremarkable chest exam.
--- NOTE | 2022-12-03 14:13 | ECG_ITS ---
Test Reason : WEAKNESS Blood Pressure : / mmHG Vent. Rate : 076 BPM Atrial Rate : 076 BPM P-R Int : 182 ms QRS Dur : 086 ms QT Int : 370 ms P-R-T Axes : 045 006 032 degrees QTc Int : 416 ms Normal sinus rhythm Normal ECG When compared with ECG of 21-DEC-2021 14:43, Premature atrial complexes are no longer Present Referred By: Skye Merino Electronically Signed By:VERNON RODRIGUEZ MD
[2022-12-03] MEDS: 0.9 % Sodium Chloride 1,000 ML 999 ML IV (14:34)
[2022-12-03 14:49] LABS: ABG Base Excess 6.3 mmol/L; ABG HCO3 31 mmol/L (22-26); ABG pCO2 48 mmHg (32-45); ABG pH 7.42 (7.35-7.45); ABG pO2 83 mmHg (83-108)
[2022-12-03 14:52] LABS: Lactic Acid 1.3 mmol/L (0.5-2.0)
[2022-12-03 15:00] LABS: Ethanol < 10 mg/dL
[2022-12-03 15:00] LABS: ABG Refer to POC result
[2022-12-03 15:01] LABS: B Type Natriuretic Peptide < 10 pg/mL (<100)
[2022-12-03 15:07] LABS: Troponin-I High Sensitivity < 2.7 ng/L (<3.5-17.0)
[2022-12-03 15:22] LABS: COVID-19 Test Negative (Negative); IDNOW Serial# 08D9AD1C
--- NOTE | 2022-12-03 15:51 | MHC.EDTECH ---
this pct assumed care of patient at 1500 ,vitals taken ,pt is aware that we need a urine sample ,nicolas teresa is aware of pt high bp Pt has no apparent distress ,pt at bedside .
--- NOTE | 2022-12-03 16:03 | ED_ITS ---
HPI - Neuro Symptoms/Deficit General Chief Complaint: Neuro Symptoms/Deficit Stated Complaint: AMS Time Seen by Provider: 12/03/22 14:12 Related Data Home Medications Medication Instructions Recorded Confirmed multivitamin 1 tab PO DAILY 03/30/22 09/16/22 sennosides 8.6 mg tablet (senna) 8.6 mg PO DAILY PRN 03/30/22 09/16/22 levetiracetam 100 mg/mL oral 1,000 mg PO BID 05/30/22 09/16/22 solution ascorbic acid (vitamin C) 1,000 mg 1 g PO DAILY 07/22/22 09/16/22 capsule Previous Rx's Medication Instructions Recorded aspirin 81 mg tablet,delayed 81 mg PO DAILY #90 tabs 04/21/22 release atorvastatin 40 mg tablet 40 mg PO DAILY #90 tabs 04/21/22 rivaroxaban 20 mg tablet (Xarelto) 20 mg PO DAILY #90 tabs 04/21/22 fluconazole 150 mg tablet 150 mg PO Q3D 2 doses #2 tabs 09/16/22 miconazole nitrate 2 % vaginal 1 appful vaginal BEDTIME 7 days 09/16/22 cream (Miconazole-7) #45 grams miscellaneous medical supply #240 ea 10/05/22 miscellaneous medical supply See Rx Instructions miscellaneous 10/12/22 .COMPLEX 30 days #100 ea amlodipine 5 mg tablet 5 mg PO DAILY 30 days #30 tabs 10/15/22 cefuroxime axetil 250 mg tablet 250 mg PO BID 7 days #14 tabs 10/16/22 Allergies Allergy/AdvReac Type Severity Reaction Status Date / Time apple [Apple] Allergy Severe THROAT Verified 09/16/22 13:12 SWELLING pollen extracts [POLLEN] Allergy Intermediate SNEEZING Verified 09/16/22 13:12 COUGHING ALOT kiwi AdvReac Intermediate VOMITING Verified 09/16/22 13:12 [Kiwi (Actinidia Chinensis)] avocado [Avocado] AdvReac Mild VOMITING Verified 09/16/22 13:12 [facility] Past Medical History Medical History Abscess Bladder incontinence Brain cancer Closed fracture of fibula with routine healing DVT (deep venous thrombosis) Encounter for palliative care Essential hypertension Fracture of distal end of fibula HTN (hypertension) Insomnia Metabolic alkalosis with respiratory acidosis PAC (premature atrial contraction) Physical exam, annual PVC (premature ventricular contraction) Right ankle pain Sebaceous cyst of axilla Seizure Stroke Symptomatic PVCs Torticollis, acquired Unspecified urinary incontinence UTI (urinary tract infection), bacterial Surgical History H/O craniotomy Hx of section Hx of tubal ligation Family History Family History Mother Diabetes Father Heart disease Family/Other Breast cancer Brain cancer Diabetes Social History Social History Household Members: Spouse Housing: House Housing Other:: Lives with Spouse Unable to assess alcohol history related to: Unknown Alcohol intake: never Patient Tobacco Use Status: Never used Tobacco e-Cigarette/Vaping Use: Never Used Second Hand Smoke Exposure: No Advance Directives: No Advance Directives Information Provided: No Advance Directives Date on File: 02/12/20 service: No Current occupational status: unemployed and disabled Cognitive needs: No Hearing needs: No Vision needs: No Physical Exam Vital Signs: Vital Signs: Last Vital Signs Temp 98.2 F 12/03/22 15:49 Pulse 74 12/03/22 15:49 Resp 16 12/03/22 15:49 BP 177/68 H 12/03/22 15:49 Pulse Ox 97 12/03/22 15:49 O2 Del Method Room Air 12/03/22 15:49 BMI result Body Mass Index 26.3 Course Reevaluation(s) Reevaluation #1: acute mental status change, await for CT head, UA, electrolyte, CVC case signed out to Dr. Young Time: 16:04 Medications Administered Discontinued Medications Generic Name Dose Route Start Last Admin Trade Name Freq PRN Reason Stop Dose Admin Sodium Chloride 1,000 mls @ 999 mls/hr 12/03/22 14:12 12/03/22 14:34 Ns IV 12/03/22 15:12 999 mls/hr .Q1H1M ONE Administration Medical Decision Making Differential Diagnosis Differential Diagnoses: The differential diagnosis associated with the presentation includes ( UTI, electrolyte abnormality, severe anemia, intracranial pathology.) Admission/Observation Consideration of admission/observation: Escalation of care including admission/observation considered Lab Data MDM Lab Attestation statement: I reviewed the patient's lab results. Labs: Lab Results 12/03/22 12/03/22 12/03/22 Range/Units 14:26 14:31 14:42 O2 Saturation 97.0 % ABG pH at Pt Temp 7.42 (7.35-7.45) ABG pCO2 at Pt Temp 48 H (32-45) mmHg ABG pO2 at Pt Temp 83 (83-108) mmHg ABG HCO3 31 H (22-26) mmol/L ABG Base Excess (Actual) 6.3 mmol/L Lactic Acid 1.3 (0.5-2.0) mmol/L Troponin I High Sens < 2.7 (<3.5-17.0) ng/L B-Natriuretic Peptide < 10 (<100) pg/mL Ethyl Alcohol < 10 mg/dL COVID-19 (JURGEN) (Negative) COVID-19 Clin Com 12/03/22 Range/Units 15:03 O2 Saturation % ABG pH at Pt Temp (7.35-7.45) ABG pCO2 at Pt Temp (32-45) mmHg ABG pO2 at Pt Temp (83-108) mmHg ABG HCO3 (22-26) mmol/L ABG Base Excess (Actual) mmol/L Lactic Acid (0.5-2.0) mmol/L Troponin I High Sens (<3.5-17.0) ng/L B-Natriuretic Peptide (<100) pg/mL Ethyl Alcohol mg/dL COVID-19 (JURGEN) Negative (Negative) COVID-19 Clin Com See Note Discharge Plan Discharge Clinical Impression: Altered mental status Prescriptions: No Action aspirin 81 mg tablet,delayed release (DR/EC) 81 mg PO DAILY Qty: 90 3RF atorvastatin 40 mg tablet 40 mg PO DAILY Qty: 90 3RF Xarelto 20 mg tablet 20 mg PO DAILY Qty: 90 3RF Rx Instructions: must administer with evening meal (DME) miscellaneous medical supply Misc See Rx Instructions .ROUTE .MEDSUPPLY Qty: 240 6RF Rx Instructions: Disposable Diaper-PullUps. size large 8x daily As directed, 30 day supply miscellaneous medical supply Misc See Rx Instructions miscellaneous .COMPLEX 30 Days Qty: 100 0RF Rx Instructions: disposable bed pads. amlodipine 5 mg tablet 5 mg PO DAILY 30 Days Qty: 30 1RF cefuroxime axetil 250 mg tablet 250 mg PO BID 7 Days Qty: 14 0RF multivitamin Tablet 1 tab PO DAILY sennosides [senna] 8.6 mg tablet 8.6 mg PO DAILY PRN ascorbic acid (vitamin C) 1,000 mg capsule 1 g PO DAILY levetiracetam 100 mg/mL solution 1,000 mg PO BID fluconazole 150 mg tablet 150 mg PO Q3D 0 Days Qty: 2 4RF Rx Instructions: may repeat second dose 72 hrs after first dose if symptoms persist miconazole nitrate [Miconazole-7] 2 % cream 1 appful vaginal BEDTIME 7 Days Qty: 45 4RF
[2022-12-03 16:51] LABS: Ammonia 42 umol/L (13-55)
[2022-12-03 17:19] LABS: TSH reflex Free T4 0.74 uIU/mL (0.32-4.0)
[2022-12-03 18:26] LABS: Alanine Aminotransferase 20 U/L (0-31); Albumin Level 3.7 g/dL (3.5-5.0); Alkaline Phosphatase 121 U/L (39-117); Anion Gap 13 (12-20); Aspartate Amino Transferase 19 U/L (5-31); Bilirubin Direct 0.2 mg/dL (0.0-0.5); Bilirubin Total 0.3 mg/dL (0.0-1.0); Blood Urea Nitrogen 10 mg/dL (9-16); Calcium 9.4 mg/dL (8.4-10.2); Carbon Dioxide 27 mmol/L (22-29); Chloride 106 mmol/L (96-108); Estimated Glomerular Filt Rate > 60; Glucose Random 102 mg/dL (60-115); Lipase 80 U/L (8-78); Potassium 3.9 mmol/L (3.3-5.1); Sodium 142 mmol/L (135-145); Total Protein 7.2 g/dL (6.5-8.0)
[2022-12-03 18:31] LABS: Basophils Absolute Auto 0.1 X10*3/uL (0.0-0.2); Basophils Percent Auto 0.4 % (0-2); Eosinophils Percent Auto 0.3 % (0-4); Hematocrit 42.6 % (37.0-47.0); Hemoglobin 13.5 g/dl (12.0-16.0); Imm Gran Abs Auto 0.03 X10*3/uL (0.00-0.03); Imm Gran Pct Auto 0.2 % (0.0-0.4); Lymphocytes Percent Auto 15.9 % (20-40); MANUAL DIFF FLAG NO; Mean Corpuscular HGB Conc 31.7 g/dl (31.0-35.0); Mean Corpuscular Hemoglobin 27.2 pg (27.0-33.0); Mean Corpuscular Volume 85.9 fL (80.0-98.0); Mean Platelet Volume 10.2 fL (9.4-12.3); Monocytes Absolute Auto 0.9 X10*3/uL (0.1-1.2); Monocytes Percent Auto 7.1 % (2-11); Neutrophils Absolute Auto 9.4 x10*3/uL (2.0-8.3); Neutrophils Percent Auto 76.1 % (45-73); Platelet Count 230 X10*3/uL (160-400); Red Blood Count 4.96 X10*6/uL (4.20-5.50); Red Cell Distribution Width 13.8 % (11.0-16.0); White Blood Count 12.3 X10*3/uL (4.8-10.8)
[2022-12-03 19:20] LABS: Influenza A PCR NEGATIVE (Negative); Influenza B PCR NEGATIVE (Negative); Resp Syncy Virus RNA Qual PCR NEGATIVE (Negative); SARS COV2 PCR INHOUSE NEGATIVE (Negative)
[2022-12-03] MEDS: iohexoL 350 MG/ML 100 ML INFUS..BTL IV (19:38)
--- NOTE | 2022-12-03 20:13 | MHC.EDTECH ---
PT WAS INCONIENT OF URINE ,CARE GIVEN AND BEDDING CHANGE .
[2022-12-03 20:29] LABS: Appearance Urine Clear; Color Urine Yellow; Glucose Urine UA Negative (Negative); Leukocyte Esterase Urine Negative (Negative); Nitrite Urine Negative (Negative); Specific Gravity - Urine >= 1.030 (1.005-1.025); UMIC TRIGGER UACC YES; Urine Blood Trace (Negative); Urine Ketones Negative (Negative); Urine Protein Negative (Neg-Trace)
[2022-12-03 20:39] LABS: Amphetamine Screen Urine Not Detected (Not Detect); Barbiturates, Urine Not Detected (Not Detect); Benzodiazepines Screen Urine Not Detected (Not Detect); Cannabinoid Screen Urine Not Detected (Not Detect); Cocaine Screen Urine Not Detected (Not Detect); Fentanyl, urine Not Detected (Not Detect); Opiate Screen Urine Not Detected (Not Detect); Phencyclidine Screen Urine Not Detected (Not Detect)
[2022-12-03] MEDS: ondansetron HCL 4 MG/2 ML VIAL IVPUSH (20:43)
[2022-12-03] MEDS: Morphine Sulfate 2 MG/ML CARTRIDGE IVPUSH (20:44)
[2022-12-03] MEDS: cefTRIAXone sodium 2 GM in 0.9 % Sodium Chloride 50 ML IV (20:47)
--- NOTE | 2022-12-03 20:47 | PC.NURSE ---
This comic book writer assumed care at 1900. AO to self, pt is pointing to lower abd when asked about pain, not verbal pt held a 5 up with her hand for pain number. Pt able to follow some commands, equal hand medical lead, with no hand drift, pt able to lift legs but not hold up. bladder scan results: > 170 pt straight cathed for urine sample, collected and sent to lab. pt medicated per APR, IV fluids running, and ABX. Friend at bedside.
--- NOTE | 2022-12-03 21:08 | PC.NURSE ---
Pt has torticollis, unable to perform 3oz of water without straw.
[2022-12-03 21:09] LABS: Bacteria Urine None Seen (None Seen); Hyaline Casts Urine 0-2 /LPF (0-2); WBC Urine 0-5 /HPF (0-5)
--- NOTE | 2022-12-03 21:14 | PM.IMHP ---
History of Present Illness Date of Service: 12/03/22 Attending physician on admission: Dejon Linares Chief Complaint: ams 67-year-old female with history of DVT left lower extremity, hypertension, history of brain cancer s/p tumor resection chemo and radiation in 2009, unspecified seizure disorder, history CVA, TERI on CPAP, chronic fixed torticollis, and hyperlipidemia presented to the ED earlier today for evaluation of altered mental status. Her noted around noon, he notices was increasingly confused, not speaking or eating and was diffusely weak unable to stand. At baseline, patient walks with walker and will speech is sometimes slow, is able to have a conversation. On exam, patient nods yes or no but occasionally stares blankly and is unable to follow commands. Her friend, Juani, assists with history. On arrival, patient hypertensive to 188/92, vitals otherwise stable. On admission blood pressure improved 144/78 without intervention. She has a mild leukocytosis of 12.3. Renal function and electrolyte levels are normal. Lactic acid 1.3. Ammonia level within normal limits. Troponin undetectable, BNP undetectable. TSH normal at 0.74. Urinalysis unremarkable. ABG with pH 7.42, chronic hypercapnia with CO2 48, bicarb 31. Negative for COVID-19, influenza, RSV. Urine tox screen negative. CXR unremarkable. Head CT negative for any acute intracranial abnormality. CTA of the head/neck limited due to torticollis but negative for any significant arterial narrowing the neck or proximal intracranial arterial definite high-grade stenosis or LVO. Blood culture was 1 also growing Gram-positive cocci on Gram stain. Given 2 g IV ceftriaxone, ondansetron, 1 L IVF, 2 mg morphine. Last known well time 12:00, outside of window for tPA Review of Systems Review of Systems: Yes Unobtainable due to mental status [facility] Medical History Metabolic alkalosis with respiratory acidosis Encounter for palliative care Sebaceous cyst of axilla Essential hypertension PVC (premature ventricular contraction) PAC (premature atrial contraction) Torticollis, acquired UTI (urinary tract infection), bacterial Bladder incontinence Unspecified urinary incontinence Abscess Symptomatic PVCs Physical exam, annual Stroke Insomnia Closed fracture of fibula with routine healing Fracture of distal end of fibula Right ankle pain Seizure HTN (hypertension) Brain cancer DVT (deep venous thrombosis) Family History Mother Diabetes Father Heart disease Family/Other Breast cancer Brain cancer Diabetes Surgical History Hx of section Hx of tubal ligation H/O craniotomy Social History Household Members: Spouse Housing: House Housing Other:: Lives with Spouse Unable to assess alcohol history related to: Unable to respond Alcohol intake: never Patient Tobacco Use Status: Never used Tobacco Smoked in Last 30 Days: No e-Cigarette/Vaping Use: Never Used Second Hand Smoke Exposure: No Use of substances other than those prescribed or required for medical reasons: No Advance Directives: No Advance Directives Information Provided: No Advance Directives Date on File: 02/12/20 service: No Current occupational status: unemployed and disabled Cognitive needs: No Hearing needs: No Vision needs: No Meds Allergies Allergy/AdvReac Type Severity Reaction Status Date / Time apple [Apple] Allergy Severe THROAT Verified 09/16/22 13:12 SWELLING pollen extracts [POLLEN] Allergy Intermediate SNEEZING Verified 09/16/22 13:12 COUGHING ALOT kiwi AdvReac Intermediate VOMITING Verified 09/16/22 13:12 [Kiwi (Actinidia Chinensis)] avocado [Avocado] AdvReac Mild VOMITING Verified 09/16/22 13:12 Home Medications Medication Instructions Recorded Confirmed Last Taken Type multivitamin 1 tab PO DAILY 03/30/22 09/16/22 Unknown History sennosides 8.6 mg tablet (senna) 8.6 mg PO DAILY PRN 03/30/22 09/16/22 Unknown History levetiracetam 100 mg/mL oral 1,000 mg PO BID 05/30/22 09/16/22 Unknown History solution ascorbic acid (vitamin C) 1,000 mg 1 g PO DAILY 07/22/22 09/16/22 Unknown History capsule Physical Exam Vital Signs and Narrative: Vital Signs: Last Vital Signs Temp 98.7 F 12/03/22 20:00 Pulse 83 12/03/22 20:00 Resp 19 12/03/22 20:00 BP 144/78 H 12/03/22 20:00 Pulse Ox 99 12/03/22 20:00 O2 Del Method Room Air 12/03/22 20:00 BMI result Body Mass Index 26.3 Constitutional - Awake and Alert, No apparent distress Eyes - PERRLA, EOMI Cardiovascular - S1S2, RRR, No edema Respiratory - Normal lung expansion, Normal respiratory effort, No respiratory distress, CTA bilaterally Gastrointestinal - NT / ND; +BS; No rebound or guarding Extremities - no calf tenderness bilaterally, no swelling Musculoskeletal - Normal inspection, normal ROM, fixed torticollis Skin - Warm/Dry Neurological - Alert & oriented to self and place, unable to follow commands, not answering many questions. PERRLA, slight loss of right nasolabial fold, 4/5 strength BLE and BUE Results Labs 12/03/22 18:25 12/03/22 14:26 Labs: Laboratory Results - last 24 hr 12/03/22 12/03/22 12/03/22 14:26 14:31 14:42 MCV MCH MCHC RDW Plt Count MPV Immature Gran % (Auto) Neut % (Auto) Lymph % (Auto) [place] % (Auto) Eos % (Auto) Baso % (Auto) Lymph # (Auto) [place] # (Auto) Eos # (Auto) Baso # (Auto) Abs Immat Gran (auto) Absolute Neuts (auto) Absolute Nucleated RBC Nucleated RBC % (auto) O2 Saturation 97.0 ABG pH at Pt Temp 7.42 ABG pCO2 at Pt Temp 48 H ABG pO2 at Pt Temp 83 ABG HCO3 31 H ABG Base Excess (Actual) 6.3 Anion Gap 13 Estim Creat Clear Calc 83.0 Estimated GFR > 60 Random Glucose 102 Lactic Acid 1.3 Calcium 9.4 Total Bilirubin 0.3 Direct Bilirubin 0.2 AST 19 ALT 20 Alkaline Phosphatase 121 H Ammonia B-Natriuretic Peptide < 10 Total Protein 7.2 Albumin 3.7 Lipase 80 H TSH Urine Color Urine Appearance Urine pH Ur Specific [place] Urine Protein Urine Glucose (UA) Urine Ketones Urine Blood Urine Nitrite Ur Leukocyte Esterase Urine RBC Urine WBC Ur Squamous Epith Cells Urine Bacteria Hyaline Casts Urine Opiates Screen Urine Fentanyl Screen Ur Barbiturates Screen Ur Phencyclidine Scrn Ur Amphetamines Screen U Benzodiazepines Scrn Urine Cocaine Screen U Marijuana (THC) Screen Ethyl Alcohol < 10 COVID-19 (JURGEN) COVID-19 Clin Com Influenza Type A (PCR) Influenza Type B (PCR) RSV RNA Qual (PCR) SARS-CoV-2 RNA (RT-PCR) 12/03/22 12/03/22 12/03/22 15:03 16:39 18:25 MCV 85.9 MCH 27.2 MCHC 31.7 RDW 13.8 Plt Count 230 MPV 10.2 Immature Gran % (Auto) 0.2 Neut % (Auto) 76.1 H Lymph % (Auto) 15.9 L [place] % (Auto) 7.1 Eos % (Auto) 0.3 Baso % (Auto) 0.4 Lymph # (Auto) 2.0 [place] # (Auto) 0.9 Eos # (Auto) 0.0 Baso # (Auto) 0.1 Abs Immat Gran (auto) 0.03 Absolute Neuts (auto) 9.4 H Absolute Nucleated RBC 0.000 Nucleated RBC % (auto) 0.0 O2 Saturation ABG pH at Pt Temp ABG pCO2 at Pt Temp ABG pO2 at Pt Temp ABG HCO3 ABG Base Excess (Actual) Anion Gap Estim Creat Clear Calc Estimated GFR Random Glucose Lactic Acid Calcium Total Bilirubin Direct Bilirubin AST ALT Alkaline Phosphatase Ammonia 42 B-Natriuretic Peptide Total Protein Albumin Lipase TSH 0.74 Urine Color Urine Appearance Urine pH Ur Specific [place] Urine Protein Urine Glucose (UA) Urine Ketones Urine Blood Urine Nitrite Ur Leukocyte Esterase Urine RBC Urine WBC Ur Squamous Epith Cells Urine Bacteria Hyaline Casts Urine Opiates Screen Urine Fentanyl Screen Ur Barbiturates Screen Ur Phencyclidine Scrn Ur Amphetamines Screen U Benzodiazepines Scrn Urine Cocaine Screen U Marijuana (THC) Screen Ethyl Alcohol COVID-19 (JURGEN) Negative COVID-19 Clin Com See Note Influenza Type A (PCR) NEGATIVE Influenza Type B (PCR) NEGATIVE RSV RNA Qual (PCR) NEGATIVE SARS-CoV-2 RNA (RT-PCR) NEGATIVE 12/03/22 20:13 MCV MCH MCHC RDW Plt Count MPV Immature Gran % (Auto) Neut % (Auto) Lymph % (Auto) [place] % (Auto) Eos % (Auto) Baso % (Auto) Lymph # (Auto) [place] # (Auto) Eos # (Auto) Baso # (Auto) Abs Immat Gran (auto) Absolute Neuts (auto) Absolute Nucleated RBC Nucleated RBC % (auto) O2 Saturation ABG pH at Pt Temp ABG pCO2 at Pt Temp ABG pO2 at Pt Temp ABG HCO3 ABG Base Excess (Actual) Anion Gap Estim Creat Clear Calc Estimated GFR Random Glucose Lactic Acid Calcium Total Bilirubin Direct Bilirubin AST ALT Alkaline Phosphatase Ammonia B-Natriuretic Peptide Total Protein Albumin Lipase TSH Urine Color Yellow Urine Appearance Clear Urine pH 8.0 Ur Specific [place] >= 1.030 H Urine Protein Negative Urine Glucose (UA) Negative Urine Ketones Negative Urine Blood Trace H Urine Nitrite Negative Ur Leukocyte Esterase Negative Urine RBC 6-10 H Urine WBC 0-5 Ur Squamous Epith Cells 3-5 Urine Bacteria None Seen Hyaline Casts 0-2 Urine Opiates Screen Not Detected Urine Fentanyl Screen Not Detected Ur Barbiturates Screen Not Detected Ur Phencyclidine Scrn Not Detected Ur Amphetamines Screen Not Detected U Benzodiazepines Scrn Not Detected Urine Cocaine Screen Not Detected U Marijuana (THC) Screen Not Detected Ethyl Alcohol COVID-19 (JURGEN) COVID-19 Clin Com Influenza Type A (PCR) Influenza Type B (PCR) RSV RNA Qual (PCR) SARS-CoV-2 RNA (RT-PCR) Imaging Radiologist's Impressions: Impressions Chest X-Ray 12/03/22 15:13 IMPRESSION: Unremarkable chest exam. Head CT 12/03/22 15:46 IMPRESSION: No acute intracranial hemorrhage or infarct. Head/Neck CTA 12/03/22 19:37 IMPRESSION: Interpretation of this study is significantly technically limited secondary to patient head and neck positioning. Within this limitation, no significant arterial narrowing in the neck is identified. No proximal intracranial arterial definite high-grade stenosis or large vessel occlusion. Assessment and Plan (1) Encephalopathy: Status: Acute Plan 67-year-old female with history of DVT left lower extremity, hypertension, history of brain cancer s/p tumor resection chemo and radiation in 2009, unspecified seizure disorder, history CVA, TERI on CPAP, chronic fixed torticollis, and hyperlipidemia admitted with acute metabolic encephalopathy with concern for CVA #suspected acute CVA #acute metabolic encephalopathy -patient with memory impairment, altered mental status, aphasia, diffuse weakness -U tox negative, infectious workup negative, ammonia level normal, no acute hypercapnia, renal function electrolyte levels normal, TSH normal -head CT without any acute intracranial abnormality, head CT negative for any significant stenoses or large vessel occlusion -MRI ordered -EEG ordered -bedside swallow evaluation -give 162 mg ASA now, continue ASA 81 mg daily -continue atorvastatin 40 mg daily, lipid panel pending -echocardiogram ordered -neurology consult -keep NPO for now, ELECTROMEDICAL SERVICE ENGINEER evaluation pending -PT/OT evaluation -monitor on telemetry # unspecified seizure disorder -EEG ordered as above, seizure precautions -continue Keppra # hypertension -blood pressure reasonably controlled -hold antihypertensives in setting of possible acute CVA # history DVT -continue Xarelto # HLD -continue statin # TERI -CPAP at bedtime DVT prophylaxis-on Xarelto Full code Patient requires inpatient stay at least 2 midnights for management of acute metabolic encephalopathy with concern for acute CVA Time Spent With Patient Time: Total time managing care of this patient today ____ minutes. Quality Stroke Does the patient have a stroke diagnosis?: Yes Reason for No Anti-thrombotic by Day Two: Drug treatment not indicated VTE Prior VTE?: Yes VTE Risk Level:: Medical - moderate - high VTE Device Contraindication: Treatment Not Indicated VTE Drug Contraindication: N/A - Med Ordered
[2022-12-03] MEDS: levETIRAcetam Oral Soln 500 MG/5 ML 1000 MG PO (22:22)
[2022-12-03] MEDS: Aspirin 81 MG TAB.CHEW 162 MG PO (22:22)
--- NOTE | 2022-12-03 23:09 | MHC.EDTECH ---
PATIENT VITALS TAKEN AND BELONGING LIST DONE ,PT IS ON CONTINUOUS SENIOR EXECUTIVE ASSISTANT ,PT IS COMFORTABLE ,NO APPARENT DISTRESS AT DIS TIME ,PT AT BEDSIDE .
--- NOTE | 2022-12-04 01:37 | PC.NURSE ---
Pt appears to be sleeping at the moment, with unlabored respirations, pt noted to have a lateral bend of neck to the right. at bed side reports torticollis.
[2022-12-04 05:00] VITALS: BP 147/82; PULSE 75; RESP 14; O2SAT 98
[2022-12-04 05:38] LABS: MANUAL DIFF FLAG NO
[2022-12-04 05:44] LABS: Basophils Absolute Auto 0.1 X10*3/uL (0.0-0.2); Basophils Percent Auto 0.7 % (0-2); Eosinophils Absolute Auto 0.2 X10*3/uL (0.0-0.4); Eosinophils Percent Auto 1.9 % (0-4); Hematocrit 41.2 % (37.0-47.0); Imm Gran Abs Auto 0.01 X10*3/uL (0.00-0.03); Imm Gran Pct Auto 0.1 % (0.0-0.4); Lymphocytes Absolute Auto 2.5 X10*3/uL (1.2-4.9); Lymphocytes Percent Auto 28.6 % (20-40); Mean Corpuscular HGB Conc 31.6 g/dl (31.0-35.0); Mean Corpuscular Hemoglobin 27.1 pg (27.0-33.0); Mean Platelet Volume 10.3 fL (9.4-12.3); Monocytes Absolute Auto 0.8 X10*3/uL (0.1-1.2); Monocytes Percent Auto 9.3 % (2-11); Neutrophils Absolute Auto 5.1 x10*3/uL (2.0-8.3); Neutrophils Percent Auto 59.4 % (45-73); Platelet Count 225 X10*3/uL (160-400); Red Blood Count 4.79 X10*6/uL (4.20-5.50); Red Cell Distribution Width 13.8 % (11.0-16.0); White Blood Count 8.6 X10*3/uL (4.8-10.8)
--- NOTE | 2022-12-04 05:50 | PC.NURSE ---
Pt incontinent or urine, incontinent care provided. Pt turned and repositioned.
[2022-12-04 06:15] LABS: Anion Gap 12 (12-20); Blood Urea Nitrogen 7 mg/dL (9-16); Calcium 8.9 mg/dL (8.4-10.2); Carbon Dioxide 25 mmol/L (22-29); Chloride 108 mmol/L (96-108); Cholesterol 105 mg/dL (<200); Estimated Glomerular Filt Rate > 60; Glucose Random 82 mg/dL (60-115); HDL Cholesterol 46 mg/dL (>40); LDL Cholesterol Calculated 53 mg/dL (<100); Potassium 3.8 mmol/L (3.3-5.1); Sodium 141 mmol/L (135-145); Triglycerides 31 mg/dL (<150)
--- NOTE | 2022-12-04 07:41 | PHA.MEDREC ---
Pharmacy Consult ? Medication Reconciliation Pharmacy has completed the medication reconciliation. Used claim history to complete.
[2022-12-04 08:07] VITALS: BP 159/76; PULSE 66; RESP 14; TEMP 36.8; O2SAT 98
[2022-12-04] MEDS: 0.9 % Sodium Chloride Flush 3 ML SYRINGE IVFLUSH ×2 (10:24→16:44)
--- NOTE | 2022-12-04 10:51 | PC.NURSE ---
ramiro muhammad sent to [facility] PANEL [employer]SEMBL[facility] r/t pts strict NPO status and order for PO Keppra, requested change to IV keppra. awaiting orders at this time
--- NOTE | 2022-12-04 10:59 | P.PNIM_ITS ---
Subjective Subjective Date of Service: 12/04/22 Interval History: Follow up weakness and confusion denied pain or discomfort resting in bed, chronic torticollis Review of Systems Review of Systems: Yes Unobtainable due to mental status Physical Exam 2 Vital Signs: Vital Signs: Last Vital Signs Temp 98.3 F 12/04/22 08:07 Pulse 66 12/04/22 08:07 Resp 14 12/04/22 08:07 BP 159/76 H 12/04/22 08:07 Pulse Ox 98 12/04/22 08:07 O2 Del Method Room Air 12/04/22 08:07 BMI result Body Mass Index 26.3 Appearing in no acute distress head is normocephalic atraumatic eyes pupils are PERRLA sclera is anicteric mouth throat mucous membranes are intact and moist neckchronic torticollis lung sounds are clear to auscultation heart regular rate rhythm, clear S1, S2 positive bowel sounds, abdomen is soft, nontender neuro patient is alert and oriented to self Objective Data Active Medications Acetaminophen (Acetaminophen 325 Mg Tablet) 650 mg PO Q6H PRN PRN Reason: Pain, Mild (Pain Scale 1-3) Aspirin (Aspirin Enteric Coated 81 Mg Tablet.Dr) 81 mg PO DAILY [facility] Last Admin: 12/04/22 09:07 Dose: Not Given Documented By: ANGELIQUE Non-Admin Reason: NPO Atorvastatin Calcium (Atorvastatin Calcium 40 Mg Tablet) 40 mg PO DAILY [facility] Last Admin: 12/04/22 09:07 Dose: Not Given Documented By: ANGELIQUE Non-Admin Reason: NPO Docusate Sodium (Docusate Sodium 100 Mg Capsule) 100 mg PO DAILY PRN PRN Reason: Constipation Levetiracetam (Levetiracetam Oral Soln 500 Mg/5 Ml) 1,000 mg PO BID [facility] Last Admin: 12/03/22 22:22 Dose: 1,000 mg Documented By: ALICIA Ondansetron HCl (Ondansetron Hcl 4 Mg/2 Ml Vial) 4 mg IVPUSH Q8H PRN PRN Reason: Nausea and Vomiting Rivaroxaban (Rivaroxaban 20 Mg Tablet) 20 mg PO DAILY@1700 [facility] Sodium Chloride (0.9 % Sodium Chloride Flush 3 Ml Syringe) 3 ml IVFLUSH QSHIFT [facility] Last Admin: 12/04/22 10:24 Dose: 3 ml Documented By: SHAHRAM Labs 12/04/22 05:22 12/04/22 05:22 Labs: Laboratory Results - last 24 hr 12/03/22 12/03/22 12/03/22 14:26 14:31 14:42 MCV MCH MCHC RDW Plt Count MPV Immature Gran % (Auto) Neut % (Auto) Lymph % (Auto) Baker % (Auto) Eos % (Auto) Baso % (Auto) Lymph # (Auto) Baker # (Auto) Eos # (Auto) Baso # (Auto) Abs Immat Gran (auto) Absolute Neuts (auto) Absolute Nucleated RBC Nucleated RBC % (auto) O2 Saturation 97.0 ABG pH at Pt Temp 7.42 ABG pCO2 at Pt Temp 48 H ABG pO2 at Pt Temp 83 ABG HCO3 31 H ABG Base Excess (Actual) 6.3 Anion Gap 13 Estim Creat Clear Calc 83.0 Estimated GFR > 60 Random Glucose 102 Lactic Acid 1.3 Calcium 9.4 Total Bilirubin 0.3 Direct Bilirubin 0.2 AST 19 ALT 20 Alkaline Phosphatase 121 H Ammonia B-Natriuretic Peptide < 10 Total Protein 7.2 Albumin 3.7 Triglycerides Cholesterol LDL Cholesterol, Calc HDL Cholesterol Lipase 80 H TSH Urine Color Urine Appearance Urine pH Ur Specific [place] Urine Protein Urine Glucose (UA) Urine Ketones Urine Blood Urine Nitrite Ur Leukocyte Esterase Urine RBC Urine WBC Ur Squamous Epith Cells Urine Bacteria Hyaline Casts Urine Opiates Screen Urine Fentanyl Screen Ur Barbiturates Screen Ur Phencyclidine Scrn Ur Amphetamines Screen U Benzodiazepines Scrn Urine Cocaine Screen U Marijuana (THC) Screen Ethyl Alcohol < 10 COVID-19 (JURGEN) COVID-19 Clin Com Influenza Type A (PCR) Influenza Type B (PCR) RSV RNA Qual (PCR) SARS-CoV-2 RNA (RT-PCR) 12/03/22 12/03/22 12/03/22 15:03 16:39 18:25 MCV 85.9 MCH 27.2 MCHC 31.7 RDW 13.8 Plt Count 230 MPV 10.2 Immature Gran % (Auto) 0.2 Neut % (Auto) 76.1 H Lymph % (Auto) 15.9 L Baker % (Auto) 7.1 Eos % (Auto) 0.3 Baso % (Auto) 0.4 Lymph # (Auto) 2.0 Baker # (Auto) 0.9 Eos # (Auto) 0.0 Baso # (Auto) 0.1 Abs Immat Gran (auto) 0.03 Absolute Neuts (auto) 9.4 H Absolute Nucleated RBC 0.000 Nucleated RBC % (auto) 0.0 O2 Saturation ABG pH at Pt Temp ABG pCO2 at Pt Temp ABG pO2 at Pt Temp ABG HCO3 ABG Base Excess (Actual) Anion Gap Estim Creat Clear Calc Estimated GFR Random Glucose Lactic Acid Calcium Total Bilirubin Direct Bilirubin AST ALT Alkaline Phosphatase Ammonia 42 B-Natriuretic Peptide Total Protein Albumin Triglycerides Cholesterol LDL Cholesterol, Calc HDL Cholesterol Lipase TSH 0.74 Urine Color Urine Appearance Urine pH Ur Specific [place] Urine Protein Urine Glucose (UA) Urine Ketones Urine Blood Urine Nitrite Ur Leukocyte Esterase Urine RBC Urine WBC Ur Squamous Epith Cells Urine Bacteria Hyaline Casts Urine Opiates Screen Urine Fentanyl Screen Ur Barbiturates Screen Ur Phencyclidine Scrn Ur Amphetamines Screen U Benzodiazepines Scrn Urine Cocaine Screen U Marijuana (THC) Screen Ethyl Alcohol COVID-19 (JURGEN) Negative COVID-19 Clin Com See Note Influenza Type A (PCR) NEGATIVE Influenza Type B (PCR) NEGATIVE RSV RNA Qual (PCR) NEGATIVE SARS-CoV-2 RNA (RT-PCR) NEGATIVE 12/03/22 12/04/22 20:13 05:22 MCV 86.0 MCH 27.1 MCHC 31.6 RDW 13.8 Plt Count 225 MPV 10.3 Immature Gran % (Auto) 0.1 Neut % (Auto) 59.4 Lymph % (Auto) 28.6 Baker % (Auto) 9.3 Eos % (Auto) 1.9 Baso % (Auto) 0.7 Lymph # (Auto) 2.5 Baker # (Auto) 0.8 Eos # (Auto) 0.2 Baso # (Auto) 0.1 Abs Immat Gran (auto) 0.01 Absolute Neuts (auto) 5.1 Absolute Nucleated RBC 0.000 Nucleated RBC % (auto) 0.0 O2 Saturation ABG pH at Pt Temp ABG pCO2 at Pt Temp ABG pO2 at Pt Temp ABG HCO3 ABG Base Excess (Actual) Anion Gap 12 Estim Creat Clear Calc 94.0 Estimated GFR > 60 Random Glucose 82 Lactic Acid Calcium 8.9 Total Bilirubin Direct Bilirubin AST ALT Alkaline Phosphatase Ammonia B-Natriuretic Peptide Total Protein Albumin Triglycerides 31 Cholesterol 105 LDL Cholesterol, Calc 53 HDL Cholesterol 46 Lipase TSH Urine Color Yellow Urine Appearance Clear Urine pH 8.0 Ur Specific [place] >= 1.030 H Urine Protein Negative Urine Glucose (UA) Negative Urine Ketones Negative Urine Blood Trace H Urine Nitrite Negative Ur Leukocyte Esterase Negative Urine RBC 6-10 H Urine WBC 0-5 Ur Squamous Epith Cells 3-5 Urine Bacteria None Seen Hyaline Casts 0-2 Urine Opiates Screen Not Detected Urine Fentanyl Screen Not Detected Ur Barbiturates Screen Not Detected Ur Phencyclidine Scrn Not Detected Ur Amphetamines Screen Not Detected U Benzodiazepines Scrn Not Detected Urine Cocaine Screen Not Detected U Marijuana (THC) Screen Not Detected Ethyl Alcohol COVID-19 (JURGEN) COVID-19 Clin Com Influenza Type A (PCR) Influenza Type B (PCR) RSV RNA Qual (PCR) SARS-CoV-2 RNA (RT-PCR) Microbiology Microbiology Results: Microbiology 12/03/22 14:31 Blood Culture - Preliminary Blood - Venous Prelim: GPC Gram Stain only Assessment and Plan (1) Encephalopathy: Status: Acute Plan 67-year-old female with history of DVT left lower extremity, hypertension, history of brain cancer s/p tumor resection chemo and radiation in 2009, unspecified seizure disorder, history CVA, TERI on CPAP, chronic fixed torticollis, and hyperlipidemia admitted with acute metabolic encephalopathy with concern for CVA Suspected acute CVA with acute metabolic encephalopathy hx of CVA in the past patient with memory impairment, altered mental status, aphasia, diffuse weakness U tox negative, infectious workup negative, ammonia level normal, no acute hypercapnia, renal function electrolyte levels normal, TSH normal head CT without any acute intracranial abnormality, head CT negative for any significant stenoses or large vessel occlusion bedside swallow evaluation continue ASA and statin neurology consult pending MRI , EEG and echo ordered PT/OT evaluation pending Unspecified seizure disorder EEG ordered seizure precautions continue Keppra hypertension blood pressure reasonably controlled resume home medications history DVT continue Xarelto HLD continue statin TERI CPAP at bedtime DVT prophylaxis-on Xarelto Attending Dr. Sherman Full code DISPO Lives with at home Continue hospital stay for management of acute metabolic encephalopathy with concern for acute CVA Time Spent With Patient Time: Total time managing care of this patient today ____ minutes. Quality Stroke Does the patient have a stroke diagnosis?: Yes Reason for No Anti-thrombotic by Day Two: Drug treatment not indicated VTE Prior VTE?: Yes VTE Risk Level:: Medical - moderate - high VTE Device Contraindication: Treatment Not Indicated VTE Drug Contraindication: N/A - Med Ordered
[2022-12-04 12:20] VITALS: BP 157/79; PULSE 71; RESP 12; O2SAT 97
--- NOTE | 2022-12-04 12:26 | PC.NURSE ---
report given to [facility]
--- NOTE | 2022-12-04 12:45 | P.CNNE_ITS ---
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 She was not known to have seizure disorder though had taken levetiracetam for seizure control. She came to hospital with change in mental status and confusion. No witnessing of or witness seizure was noted. No complaint of headache or fall. Review of Systems 2 Review of Systems: No recent cold or flu-like illness PMFSH Past Medical History Medical History Metabolic alkalosis with respiratory acidosis Encounter for palliative care Sebaceous cyst of axilla Essential hypertension PVC (premature ventricular contraction) PAC (premature atrial contraction) Torticollis, acquired UTI (urinary tract infection), bacterial Bladder incontinence Unspecified urinary incontinence Abscess Symptomatic PVCs Physical exam, annual Stroke Insomnia Closed fracture of fibula with routine healing Fracture of distal end of fibula Right ankle pain Seizure HTN (hypertension) Brain cancer DVT (deep venous thrombosis) Family History Family History Mother Diabetes Father Heart disease Family/Other Breast cancer Brain cancer Diabetes Surgical History Surgical History Hx of section Hx of tubal ligation H/O craniotomy Social History Social History Household Members: Spouse Housing: House Housing Other:: Lives with Spouse Unable to assess alcohol history related to: Unable to respond Alcohol intake: never Patient Tobacco Use Status: Never used Tobacco Smoked in Last 30 Days: No e-Cigarette/Vaping Use: Never Used Second Hand Smoke Exposure: No Use of substances other than those prescribed or required for medical reasons: No Advance Directives: No Advance Directives Information Provided: No Advance Directives Date on File: 02/12/20 Nutrition Risks: No Nutritional Risk service: No Current occupational status: unemployed and disabled Cognitive needs: No Hearing needs: No Vision needs: No Meds Allergies Allergy/AdvReac Type Severity Reaction Status Date / Time apple [Apple] Allergy Severe THROAT Verified 12/03/22 22:58 SWELLING pollen extracts [POLLEN] Allergy Intermediate SNEEZING Verified 12/03/22 22:58 COUGHING ALOT kiwi AdvReac Intermediate VOMITING Verified 12/03/22 22:58 [Kiwi (Actinidia Chinensis)] avocado [Avocado] AdvReac Mild VOMITING Verified 12/03/22 22:58 Active Medications: Current Medications Acetaminophen (Acetaminophen 325 Mg Tablet) 650 mg PO Q6H PRN PRN Reason: Pain, Mild (Pain Scale 1-3) Aspirin (Aspirin Enteric Coated 81 Mg Tablet.Dr) 81 mg PO DAILY [facility] Last Admin: 12/04/22 09:07 Dose: Not Given Atorvastatin Calcium (Atorvastatin Calcium 40 Mg Tablet) 40 mg PO DAILY [facility] Last Admin: 12/04/22 09:07 Dose: Not Given Docusate Sodium (Docusate Sodium 100 Mg Capsule) 100 mg PO DAILY PRN PRN Reason: Constipation Levetiracetam (Levetiracetam Oral Soln 500 Mg/5 Ml) 1,000 mg PO BID [facility] Last Admin: 12/03/22 22:22 Dose: 1,000 mg Ondansetron HCl (Ondansetron Hcl 4 Mg/2 Ml Vial) 4 mg IVPUSH Q8H PRN PRN Reason: Nausea and Vomiting Rivaroxaban (Rivaroxaban 20 Mg Tablet) 20 mg PO DAILY@1700 [facility] Sodium Chloride (0.9 % Sodium Chloride Flush 3 Ml Syringe) 3 ml IVFLUSH QSHIFT [facility] Last Admin: 12/04/22 10:24 Dose: 3 ml Home Medications Medication Instructions Recorded Confirmed Last Taken Type multivitamin 1 tab PO DAILY 03/30/22 12/04/22 Unknown History sennosides 8.6 mg tablet (senna) 8.6 mg PO DAILY PRN Constipation 03/30/22 12/04/22 Unknown History levetiracetam 100 mg/mL oral 1,000 mg PO TID 05/30/22 12/04/22 Unknown History solution Physical Exam 2 Vital Signs: Vital Signs: Last Vital Signs Temp 98.3 F 12/04/22 08:07 Pulse 71 12/04/22 12:20 Resp 12 12/04/22 12:20 BP 157/79 H 12/04/22 12:20 Pulse Ox 97 12/04/22 12:20 O2 Del Method Room Air 12/04/22 12:20 BMI result Body Mass Index 26.3 Neuro: Other: She is alert and awake smiling following simple commands. Neck is tilted to the right side, which is chronic. Visual carvalho are full. Face is symmetrical. She is moving extremities. Exam is somewhat limited. Results Labs 12/04/22 05:22 12/04/22 05:22 Labs: Short CBC 12/03/22 12/04/22 Range/Units 18:25 05:22 WBC 12.3 H 8.6 (4.8-10.8) X10*3/uL Hgb 13.5 13.0 (12.0-16.0) g/dl Hct 42.6 41.2 (37.0-47.0) % Plt Count 230 225 (160-400) X10*3/uL BMP 12/03/22 12/04/22 14:26 05:22 Sodium 142 141 Potassium 3.9 3.8 Chloride 106 108 Carbon Dioxide 27 25 BUN 10 7 L Creatinine 0.69 0.61 Calcium 9.4 8.9 Liver Function 12/03/22 Range/Units 14:26 Total Bilirubin 0.3 (0.0-1.0) mg/dL Direct Bilirubin 0.2 (0.0-0.5) mg/dL AST 19 (5-31) U/L ALT 20 (0-31) U/L Alkaline Phosphatase 121 H (39-117) U/L Albumin 3.7 (3.5-5.0) g/dL Urine 12/03/22 Range/Units 20:13 Urine Color Yellow Urine Appearance Clear Urine pH 8.0 (5.0-9.0) Ur Specific [place] >= 1.030 H (1.005-1.025) Urine Protein Negative (Neg-Trace) mg/dL Urine Glucose (UA) Negative (Negative) mg/dL Head CT revealed bilateral frontal chronic encephalomalacia and evidence of craniotomy. CTA did not reveal any obvious abnormality. Microbiology Microbiology Results: Microbiology 12/03/22 14:31 Blood - Venous Blood Culture - Preliminary Prelim: GPC Gram Stain only Assessment and Plan (1) Encephalopathy: Status: Acute 67 years old woman with previous history of malignant brain tumor status post couple of craniotomy is chronic bifrontal encephalomalacia previously treated with radiation and chemo and taking levetiracetam for seizure control came to hospital with change in mental status or confusion with no obvious etiology otherwise. Exact etiology was unclear and could be epileptic or behavioral in nature. A routine EEG is recommended to rule out any ongoing seizure activity. Otherwise I recommend continuing same dose of levetiracetam. Time Spent With Patient Time: Total time managing care of this patient today ____ minutes. Procedures Date of Service Date of Service: 12/04/22
[2022-12-04] MEDS: levETIRAcetam Oral Soln 500 MG/5 ML 1000 MG PO ×2 (12:50→21:59)
[2022-12-04 15:45] VITALS: BP 153/74; PULSE 73; RESP 17; TEMP 36.2; O2SAT 97
[2022-12-04] MEDS: Rivaroxaban 20 MG TABLET PO (16:42)
[2022-12-04 19:36] VITALS: BP 149/83; PULSE 65; RESP 18; TEMP 36.4; O2SAT 99
[2022-12-04 23:28] VITALS: BP 166/78; PULSE 69; RESP 18; TEMP 36.3; O2SAT 97
[2022-12-05] VITALS (7 sets, daily range): BP systolic 141–159; BP diastolic 58–98; PULSE 59–89; RESP 16–18; TEMP 36.1–37; O2SAT 95–100
--- NOTE | 2022-12-05 | EEG_ITS ---
This is a 16-channel EEG with an EKG lead. The patient is reported awake and confused during the tracing. Background EEG is frequently contaminated by muscle and lead artifacts. Background rhythm seems to be medium amplitude mixed theta beta with no obvious asymmetry or paroxysmal tendency. Photic stimulation does not produce any significant driving. Hyperventilation is not performed. Cardiac lead does not reveal any significant abnormality. No sharp wave spikes or paroxysmal tendency noted. IMPRESSION: Mild slowing with no obvious evidence of seizure disorder. MD SAMUEL Patel/DAMIAN / [phone]
[2022-12-05 07:53] LABS: MANUAL DIFF FLAG NO
[2022-12-05 08:06] LABS: Basophils Absolute Auto 0.1 X10*3/uL (0.0-0.2); Basophils Percent Auto 0.9 % (0-2); Eosinophils Absolute Auto 0.2 X10*3/uL (0.0-0.4); Eosinophils Percent Auto 2.8 % (0-4); Hematocrit 40.5 % (37.0-47.0); Hemoglobin 12.8 g/dl (12.0-16.0); Imm Gran Abs Auto 0.02 X10*3/uL (0.00-0.03); Imm Gran Pct Auto 0.3 % (0.0-0.4); Lymphocytes Absolute Auto 1.8 X10*3/uL (1.2-4.9); Mean Corpuscular HGB Conc 31.6 g/dl (31.0-35.0); Mean Corpuscular Volume 85.4 fL (80.0-98.0); Mean Platelet Volume 10.8 fL (9.4-12.3); Monocytes Absolute Auto 0.6 X10*3/uL (0.1-1.2); Neutrophils Absolute Auto 4.8 x10*3/uL (2.0-8.3); Platelet Count 237 X10*3/uL (160-400); Red Blood Count 4.74 X10*6/uL (4.20-5.50); Red Cell Distribution Width 13.8 % (11.0-16.0); White Blood Count 7.5 X10*3/uL (4.8-10.8)
--- NOTE | 2022-12-05 08:45 | MHC.CM.PN ---
CM ATTEMPTED TO MEET W/PT HOWEVER PT OFF UNIT FOR TESTING, CM WILL REVISIT ONCE PT RETURNS TO UNIT.
[2022-12-05 08:57] LABS: Anion Gap 11 (12-20); Blood Urea Nitrogen 11 mg/dL (9-16); Calcium 8.8 mg/dL (8.4-10.2); Carbon Dioxide 28 mmol/L (22-29); Chloride 106 mmol/L (96-108); Creatinine Clr Calc Pharmacy 89.6; Estimated Glomerular Filt Rate > 60; Glucose Random 85 mg/dL (60-115); Potassium 3.5 mmol/L (3.3-5.1); Sodium 141 mmol/L (135-145)
[2022-12-05] MEDS: Aspirin Enteric Coated 81 MG TABLET.DR PO (10:07)
[2022-12-05] MEDS: Atorvastatin Calcium 40 MG TABLET PO (10:07)
[2022-12-05] MEDS: levETIRAcetam Oral Soln 500 MG/5 ML 1000 MG PO ×2 (10:08→21:14)
[2022-12-05] MEDS: 0.9 % Sodium Chloride Flush 3 ML SYRINGE IVFLUSH ×2 (10:11→15:28)
--- NOTE | 2022-12-05 11:55 | MHC.CM.PN ---
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 PT'S SPOUSE TARA VERIFIES PCP IS THROUGH [facility] [place] NOT [facility], CM WILL FOLLOW THROUGH W/VERIFYING NAME, MODERNA X2 AND NO BOOSTERS AND HCP IS SPOUSE TARA AND DTR YONATHAN AND ON FILE FROM PREVIOUS VISIT. Original Note: IMM 12/05/22 DELIVERED TO BEDSIDE, CM MET W/PT VIA RN DERMATOLOGY HOWEVER PT UNDERSTANDS [place] HOWEVER SPOUSE
--- NOTE | 2022-12-05 12:30 | MHC.SLORD ---
Speech Language Pathology Order Status: MANHOLE BUILDER attempted to see patient around noon. Patient was asleep and when woken up patient requested MANHOLE BUILDER to return later.
--- NOTE | 2022-12-05 14:42 | MHC.SL.SWA ---
Speech Pathologist Impression: Risk of aspiration Risk of Aspiration Due to: Medically Fragile Neurological Condition Dysphasia Diet Status: No change made to diet order at this time Liquid Consistency and Strategies for Safe Swallow: Liquid Intake Recommendation: Thin Liquid Intake Strategies: Small Sips Solid Food Consistency: Dietary Recommendations: Regular Additional Modifications to Solid Foods: Recommend CONTINUE on REGULAR texture diet and THIN liquids, pills WHOLE or CRUSHED in PUREE depending on pt's tolerance. Pt is able to self feed, manages liquids better by straw. Due to chronic torticollis, pt may need assistance throughout meal w/ tray set up, opening of containers, preparation of foods for intake. WEB WORKER to f/u 1x to ensure tolerance, screen speech/language. Oral Medication Intake: Whole with Puree Please contact the pharmacy regarding appropriate crushable or liquid drug formulations that are available whenever modified delivery is recommended. Compensatory Strategies and Precautions to be Taken for Safe Swallow: Sitting Upright (90 deg) Liquids from Straw Small Bites and Sips Rate of Ingestion Change Avoid Specific Foods Supervision While Eating and Drinking for Safe Swallow: Total Assistance (1:1) Foods to Avoid: Hard, tough solids; mixed textures Swallowing Recommended Treatments: Compens. Strategy Educat. Recommendation for Speech: 1 f/u Gathering Machine Setter Clinican/Clinical Fellow: No Supervisory Statement: I have reviewed and agree with the student/clinical fellow's documentation: N/A Speech Language Pathologist: Renetta Samaniego M.A., [facility]-WEB WORKER
--- NOTE | 2022-12-05 16:04 | P.PNIM_ITS ---
Subjective Subjective Date of Service: 12/05/22 Interval History: Per family returning to baseline. Patient alert answering questions appropriately Review of Systems Denies chest pain Denies shortness of breath Denies nausea vomiting diarrhea Denies fever chills Physical Exam 2 Vital Signs: Vital Signs: Last Vital Signs Temp 97.5 F 12/05/22 15:42 Pulse 72 12/05/22 15:42 Resp 18 12/05/22 15:42 BP 143/69 H 12/05/22 15:42 Pulse Ox 100 12/05/22 15:42 O2 Del Method Room Air 12/05/22 15:42 BMI result Body Mass Index 26.3 Const: Other: Awake alert conversant Neck: Other: Rightward torticollis Resp: Other: Clear to auscultation bilaterally no rales rhonchi or wheezes Cardio: Other: No S4; positive S1-S2; no S3 murmurs rubs or gallops GI: Other: Soft nontender nondistended normoactive bowel sounds Extrem: Other: No edema bilaterally Objective Data Active Medications Acetaminophen (Acetaminophen 325 Mg Tablet) 650 mg PO Q6H PRN PRN Reason: Pain, Mild (Pain Scale 1-3) Aspirin (Aspirin Enteric Coated 81 Mg Tablet.) 81 mg PO DAILY [facility] Last Admin: 12/05/22 10:07 Dose: 81 mg Documented By: GLENYS Atorvastatin Calcium (Atorvastatin Calcium 40 Mg Tablet) 40 mg PO DAILY [facility] Last Admin: 12/05/22 10:07 Dose: 40 mg Documented By: GLENYS Docusate Sodium (Docusate Sodium 100 Mg Capsule) 100 mg PO DAILY PRN PRN Reason: Constipation Levetiracetam (Levetiracetam Oral Soln 500 Mg/5 Ml) 1,000 mg PO BID [facility] Last Admin: 12/05/22 10:08 Dose: 1,000 mg Documented By: GLENYS Ondansetron HCl (Ondansetron Hcl 4 Mg/2 Ml Vial) 4 mg IVPUSH Q8H PRN PRN Reason: Nausea and Vomiting Rivaroxaban (Rivaroxaban 20 Mg Tablet) 20 mg PO DAILY@1700 [facility] Last Admin: 12/04/22 16:42 Dose: 20 mg Documented By: JAZ Sodium Chloride (0.9 % Sodium Chloride Flush 3 Ml Syringe) 3 ml IVFLUSH QSHIFT [facility] Last Admin: 12/05/22 15:28 Dose: 3 ml Documented By: INGRIS Labs 12/05/22 07:20 12/05/22 07:20 Labs: Laboratory Results - last 24 hr 12/05/22 07:20 MCV 85.4 MCH 27.0 MCHC 31.6 RDW 13.8 Plt Count 237 MPV 10.8 Immature Gran % (Auto) 0.3 Neut % (Auto) 64.0 Lymph % (Auto) 24.0 Angelina % (Auto) 8.0 Eos % (Auto) 2.8 Baso % (Auto) 0.9 Lymph # (Auto) 1.8 Angelina # (Auto) 0.6 Eos # (Auto) 0.2 Baso # (Auto) 0.1 Abs Immat Gran (auto) 0.02 Absolute Neuts (auto) 4.8 Absolute Nucleated RBC 0.000 Nucleated RBC % (auto) 0.0 Anion Gap 11 L Estim Creat Clear Calc 89.6 Estimated GFR > 60 Random Glucose 85 Calcium 8.8 Microbiology Microbiology Results: Microbiology 12/03/22 14:31 Blood Culture - Preliminary Blood - Venous Prelim: GPC Gram Stain only 12/03/22 15:03 Blood Culture - Preliminary Blood - Venous No growth after 24 hours. Assessment and Plan (1) Encephalopathy: Status: Acute (2) Seizure: Status: Acute (3) Essential hypertension: Status: Acute Plan 67-year-old female with history of DVT left lower extremity, hypertension, history of brain cancer s/p tumor resection chemo and radiation in 2009, unspecified seizure disorder, history CVA, TERI on CPAP, chronic fixed torticollis, and hyperlipidemia admitted with acute metabolic encephalopathy with concern for CVA; returning to baseline 1. Mental status changes -returned to baseline per family -EEG results pending... Question secondary to seizure -unable to do MRI secondary to surgical clips; will hold at this time as she see resolving. -continue Keppra pending EEG 2.Hypertension -Acceptable control on current therapies -adjust as indicated 3.History DVT -continue Xarelto 6.HLD -continue statin Xarelto Full code Continue hospital stay for management of acute metabolic encephalopathy with concern for seizure. EEG pending Time Spent With Patient Time: Total time managing care of this patient today ____ minutes. Quality Stroke Does the patient have a stroke diagnosis?: Yes Reason for No Anti-thrombotic by Day Two: Drug treatment not indicated VTE Prior VTE?: Yes VTE Risk Level:: Medical - moderate - high VTE Device Contraindication: Treatment Not Indicated VTE Drug Contraindication: N/A - Med Ordered
[2022-12-05] MEDS: gadobutroL 7.5 ML VIAL IVPUSH (16:52)
[2022-12-05] MEDS: Rivaroxaban 20 MG TABLET PO (17:37)
[2022-12-06 03:18] VITALS: BP 147/89; PULSE 89; RESP 18; TEMP 37.1; O2SAT 98
[2022-12-06] MEDS: 0.9 % Sodium Chloride Flush 3 ML SYRINGE IVFLUSH ×4 (05:36→20:52)
--- NOTE | 2022-12-06 07:00 | CA_ITS ---
Transthoracic Echocardiogram Patient (Last, First, Middle): Juani Ferro T Gender: Female Date of : 1955 Age: 67 Procedure Date: 12/06/2022 Procedure Type: Transthoracic Echocardiogram Location: [facility] [place] Height: 170.18 cm Weight: 76.2 kg BSA: 1.88 m2 Heart Rate: bpm BP: 142 / 75 mmHg Dock Clerk: Referring MD: Karen PAUL Symptoms: cva Study Quality: Fair, Good images on Apical views ECG Rhythm: Sinus Conclusions: - The left ventricular systolic function is normal. The calculated ejection fraction is 62% by biplane method. - No obvious valvular pathology seen on this study. Findings Left Ventricle Normal left ventricular cavity size. There is mildly increased left ventricular wall thickness. The left ventricular systolic function is normal. The calculated ejection fraction is 62% by biplane method. There is no evidence of regional wall motion abnormalities. Diastolic function is normal for age. Right Ventricle Normal right ventricular cavity size and systolic function. Atria Both atria are normal in size. Aortic Valve There is a normal trileaflet aortic valve. There is no aortic valve stenosis. There is no aortic valve regurgitation. Mitral Valve There is mild anterior mitral leaflet thickening. There is no mitral valve regurgitation. There is no mitral valve stenosis. Pulmonic Valve The pulmonic valve is likely normal. Tricuspid Valve Normal tricuspid valve structure. There is trace tricuspid valve regurgitation. There is no evidence of pulmonary hypertension. Great Vessels The aortic annulus and sinuses of valsalva are normal in size. Venous The inferior vena cava is normal in size and collapses greater than 50% with inspiration. Pericardium/Pleural There is no evidence of pericardial effusion. Prior Study Comparison No significant change compared to prior study dated: 11/13/2018. Recommendations, Care & Conclusions No obvious valvular pathology seen on this study. Measurements 2D Linear Measurements IVSd: 1.18 0.6-0.9/0.6-1.0 cm LVIDd: 3.75 3.9-5.3/4.2-5.9 cm LVIDd Index: 1.99 2.4-3.2/2.2-3.1 cm/m2 LVIDs: 2.17 2.0-3.6 cm LVPWd: 1.16 0.7-1.1 cm Ao Root: 3.30 2.1-3.5 cm LA Diam: 2.70 2.7-3.8/3.0-4.0 cm LAIDs Index: 1.44 1.5-2.3 cm/m2 LV Mass: 180.06 67-162/88-224 g LV Mass Index: 95.78 43-95/49-115 g/m2 LVOT Diam: 2.20 3.0+(-)1.3 cm 2D Systolic Function EF 4C: 67.00 >55% EF 2C: 58.20 >55% EF BiP: 62.40 >55% Mitral Valve MV Pk E: 0.55 MV PK A: 0.73 MV Decel Time: 180.00 E/A: 0.70 E'Lateral: 7.72 E'Medial: 6.96 E/E' Med: 7.90 E/E' Lat: 7.10 PHT: 53.00 MVA PHT: 4.15 Decel Baxter: 3.04 Aortic Valve AoV Pk Twin: 1.36 AoV Mn Twin: 0.82 AoV VTI: 0.27 AoV Pk Grad: 7.00 Aov Mn Grad: 3.00 MARY ELLEN Cont.VTI: 2.48 LVOT LVOT Pk Twin: 0.74 LVOT Mn Twin: 0.51 LVOT VTI: 0.18 LVOT Pk Grad: 2.00 LVOT Mn Grad: 1.00 LVOT Diam: 2.20 LVOT Area: 3.80 Diastolic Function MV Pk E: 0.55 MV Pk A: 0.73 E/A: 0.70 E'Medial: 6.96 E/E' Med: 7.90 E' Laterial: 7.72 E/E' Lat: 7.10 Right Ventricle TAPSE (mm): 20.00 TVS' Twin: 10.00 Tricuspid Valve TR Pk Twin: 1.80 TR Pk Grad: 13.00 RA Press: 3.00 RVSP: 16.00 Great Vessels Aorta Ao Root-2D: 3.30 2.0-3.7 cm Pulmonary Valve PV Pk Twin: 1.07 Peak PV Grad: 5.00 Updated in Other Vendor System with Status of Final Darrius Peraza MD electronically signed on 12/07/2022 10:23:48 AM with status of Final
[2022-12-06 08:00] VITALS: BP 158/80; PULSE 63; RESP 20; TEMP 36.3; O2SAT 100
[2022-12-06] MEDS: levETIRAcetam Oral Soln 500 MG/5 ML 1000 MG PO ×2 (08:17→20:42)
[2022-12-06] MEDS: Aspirin Enteric Coated 81 MG TABLET.DR PO (08:17)
[2022-12-06] MEDS: Atorvastatin Calcium 40 MG TABLET PO (08:17)
--- NOTE | 2022-12-06 10:31 | MHC.SL.SWA ---
Speech Pathologist Impression: Mild anomic aphasia Risk of Aspiration Due to: Medically Fragile Neurological Condition Dysphasia Diet Status: No changes made to diet order Liquid Consistency and Strategies for Safe Swallow: Liquid Intake Recommendation: Thin Liquid Intake Strategies: Small Sips Solid Food Consistency: Dietary Recommendations: Regular Additional Modifications to Solid Foods: Pt w/ chronic fixed torticollis and may need assistance w/ tray set up. Swallow otherwise deemed to be WFL. Brain MRI yesterday suggestive of subacute infarct. FIELD SERVICER to f/u RE: mild anomic aphasia. Oral Medication Intake: Whole with Puree Please contact the pharmacy regarding appropriate crushable or liquid drug formulations that are available whenever modified delivery is recommended. Compensatory Strategies and Precautions to be Taken for Safe Swallow: Sitting Upright (90 deg) Liquids from Straw Small Bites and Sips Rate of Ingestion Change Avoid Specific Foods Supervision While Eating and Drinking for Safe Swallow: Total Assistance (1:1) Foods to Avoid: Hard, tough solids; mixed textures Swallowing Recommended Treatments: Compens. Strategy Educat. Recommendation for Speech: Inpatient Speech Therapy Chef Clinican/Clinical Fellow: No Supervisory Statement: I have reviewed and agree with the student/clinical fellow's documentation: N/A Speech Language Pathologist: Renetta Samaniego M.A., CCC-FIELD SERVICER
[2022-12-06 12:00] VITALS: BP 126/65; PULSE 73; RESP 20; TEMP 36.1; O2SAT 100
--- NOTE | 2022-12-06 12:33 | PC.RT ---
pt refusing to wear cpap for the past 3 days. Therefore the cpap will be removed from pt's room.
--- NOTE | 2022-12-06 12:35 | PM.DS ---
DS: Providers Provider Date of Service: 12/06/22 Date of admission: 12/03/22 21:06 Date of discharge: 12/06/22 Primary care physician: Neto Aguirre CNP Consults: 12/03/22 21:08 Consult to Neurology Routine Consulting Provider: Kiel Page Reason for consultation: encephalopathy, ?cva DS: Diagnosis Discharge Diagnosis (1) Encephalopathy: Status: Acute (2) Seizure: Status: Acute (3) Essential hypertension: Status: Acute DS: Summary Hospital Course Hospital Course: 67-year-old female with history of DVT left lower extremity, hypertension, history of brain cancer s/p tumor resection chemo and radiation in 2009, unspecified seizure disorder, history CVA, TERI on CPAP, chronic fixed torticollis, and hyperlipidemia presented to the ED earlier today for evaluation of altered mental status. Her noted around noon, he notices was increasingly confused, not speaking or eating and was diffusely weak unable to stand. At baseline, patient walks with walker and will speech is sometimes slow, is able to have a conversation. On exam, patient nods yes or no but occasionally stares blankly and is unable to follow commands. Her friend, Juani, assists with history. On arrival, patient hypertensive to 188/92, vitals otherwise stable. On admission blood pressure improved 144/78 without intervention. She has a mild leukocytosis of 12.3. Renal function and electrolyte levels are normal. Lactic acid 1.3. Ammonia level within normal limits. Troponin undetectable, BNP undetectable. TSH normal at 0.74. Urinalysis unremarkable. ABG with pH 7.42, chronic hypercapnia with CO2 48, bicarb 31. Negative for COVID-19, influenza, RSV. Urine tox screen negative. CXR unremarkable. Head CT negative for any acute intracranial abnormality. CTA of the head/neck limited due to torticollis but negative for any significant arterial narrowing the neck or proximal intracranial arterial definite high-grade stenosis or LVO. Blood culture was 1 also growing Gram-positive cocci on Gram stain. Given 2 g IV ceftriaxone, ondansetron, 1 L IVF, 2 mg morphine. Last known well time 12:00, [facility] Admitted to telemetry or monitor failed to demonstrate a dysrhythmia that could be linked to her presenting symptoms. Seen in consultation by Neurology who felt this was not a seizure by origin however recommended EEG. EEG failed to demonstrate presence of seizures. MRI demonstrated 4 mm enhancing focus sick could be suggestive as acute infarct. Over the course of the next 48 hours patient symptoms resolved and she returned to baseline per and son. PT recommended short-term rehab however states he has sufficient services at home to take care of her. On the day of discharge she was ambulating in the hallway with a walker without issue. At this point time she is medically acceptable to be discharged home to continue aspirin and a statin and follow up as an outpatient with Neurology Time Spent with Patient Time attestation: Total time managing care of this patient today ____ minutes. Discharge coordination time: Greater than 30 minutes Quality: Safe Use of Opioids Does Pt have an Active Cancer Diagnosis on the Problem List?: No Quality: Stroke Does the patient have a stroke diagnosis?: No Physical Exam Vital Signs: Vital Signs: Last Vital Signs Temp 96.9 F 12/06/22 12:00 Pulse 73 12/06/22 12:00 Resp 20 12/06/22 12:00 BP 126/65 12/06/22 12:00 Pulse Ox 100 12/06/22 12:00 O2 Del Method Room Air 12/06/22 12:00 BMI result Body Mass Index 26.3 Const: Other: Awake alert conversant Neck: Other: Rightward torticollis Resp: Other: Clear to auscultation bilaterally no rales rhonchi or wheezes Cardio: Other: No S4; positive S1-S2; no S3 murmurs rubs or gallops GI: Other: Soft nontender nondistended normoactive bowel sounds Extrem: Other: No edema bilaterally DS: Data Data Completed and Pending Completed studies during hospitalization [Text1]: Procedures Insertion of Endotracheal Airway into Trachea, Via Natural or Artificial Opening (12/20/21) Insertion of Infusion Device into Superior Vena Cava, Percutaneous Approach (12/20/21) Insertion of Monitoring Device into Lower Artery, Percutaneous Approach (12/20/21) Introduction of Vasopressor into Peripheral Vein, Percutaneous Approach (12/20/21) Monitoring of Arterial Pressure, Peripheral, Percutaneous Approach (12/20/21) Monitoring of Arterial Pulse, Peripheral, Percutaneous Approach (12/20/21) Respiratory Ventilation, Greater than 96 Consecutive Hours (12/20/21) Ultrasonography of Superior Vena Cava, Guidance (12/20/21) Labs on day of discharge: Preliminary micro results at discharge 12/03/22 14:31 Blood Culture - Preliminary Blood - Venous Prelim: GPC Gram Stain only 12/03/22 15:03 Blood Culture - Preliminary Blood - Venous No growth after 48 hours. Discharge Plan Discharge Anticipated Discharge Date/Time: 12/06/22 12:24 Patient Disposition: Home Health Service Discharge Diagnosis: TIA Referrals: Neto Aguirre, P[employer] HEAT WELDER [Primary Care Provider] - 1 Week Discharge Medications: Continued aspirin 81 mg tablet,delayed release (DR/EC) 81 mg PO DAILY Qty: 90 3RF atorvastatin 40 mg tablet 40 mg PO DAILY Qty: 90 3RF Xarelto 20 mg tablet 20 mg PO DAILY Qty: 90 3RF Rx Instructions: must administer with evening meal (DME) miscellaneous medical supply Misc See Rx Instructions .ROUTE .MEDSUPPLY Qty: 240 6RF Rx Instructions: Disposable Diaper-PullUps. size large 8x daily As directed, 30 day supply amlodipine 5 mg tablet 5 mg PO DAILY 30 Days Qty: 30 1RF multivitamin Tablet 1 tab PO DAILY sennosides [senna] 8.6 mg tablet 8.6 mg PO DAILY PRN (Reason: Constipation) levetiracetam 100 mg/mL solution 1,000 mg PO TID Discharge Orders: Discharge Order (Routine); Ordered 12/06/22 Ordered By: Darrion Carter Diet: Advance to usual diet Activity on Discharge: As tolerated Stand Alone Forms: Patient Portal Discharge page Care Plan Goals: Resume all previous medications as taken before loss Health Concerns: Follow-up with PCP and Neurology as scheduled Plan of Treatment: Resume home health services Assessment: See discharge summary
--- NOTE | 2022-12-06 14:36 | MHC.CM.PN ---
CM MET W/PT/FAMILY VIA CLINIC SPECIALIST, [facility]NOW REQUESTING [facility] OR [facility] INSTEAD OF HOME W/SERVICES, PER P.T. PT WILL BENEFIT FROM STR, HOSPITALIST UPDATED AND REFERRALS PLACED, FAMILY AWARE PT WILL LIKELY NOT BE ACCEPTED TO [facility] D/T DIAGNOSIS AND PARTICIPATION REQUIREMENTS. WHILE WRITING THIS NOTECM RECEIVED MESSAGE FROM SNF THAT [facility] WON'T APPROVE FOR TIA, CM WILL AWAIT FOR BED OFFER FROM SNF REFERRAL.
[2022-12-06 15:22] VITALS: BP 117/71; PULSE 94; RESP 20; TEMP 36.1; O2SAT 99
[2022-12-06] MEDS: Rivaroxaban 20 MG TABLET PO (17:18)
[2022-12-06 19:07] VITALS: BP 143/71; PULSE 77; RESP 20; TEMP 36.6; O2SAT 95
[2022-12-07] VITALS: BP 159/70; PULSE 71; RESP 20; TEMP 36.6; O2SAT 96
[2022-12-07] MEDS: Melatonin 3 MG TABLET 6 MG PO (01:30)
[2022-12-07 03:09] VITALS: BP 159/79; PULSE 66; RESP 20; TEMP 36.7; O2SAT 97
[2022-12-07 07:33] VITALS: BP 169/81; PULSE 64; RESP 20; TEMP 36.2; O2SAT 99
[2022-12-07] MEDS: levETIRAcetam Oral Soln 500 MG/5 ML 1000 MG PO (10:44)
[2022-12-07] MEDS: Atorvastatin Calcium 40 MG TABLET PO (10:44)
[2022-12-07] MEDS: Aspirin Enteric Coated 81 MG TABLET.DR PO (10:44)
[2022-12-07] MEDS: 0.9 % Sodium Chloride Flush 3 ML SYRINGE IVFLUSH (10:44)
[2022-12-07 11:18] VITALS: BP 146/74; PULSE 82; RESP 20; TEMP 36.3; O2SAT 98
--- NOTE | 2022-12-07 12:02 | MHC.CM.PN ---
Addendum entered by Arminda Hu, RN 12/07/22 13:14: CM MET W/PT'S AND AGAIN, PT & BOTH WOULD LIKE STR AT [facility], [facility] Original Note: PT MEDICALLY CLEARED FOR DC, CM MET W/PT'S AT BEDSIDE VIA RECOVERER X2, INITIALLY PT'S WANTED STR AND AWARE [facility] COULD NOT OFFER A BED, [facility] OFFERING AND HAD GONE FOR AUTH, PT'S AGREEABLE HOWEVER PT'S LATER REQUESTED TO VISIT FACILITY AND WILL GO TO [facility] FOR TOUR AND THEN GIVE CM AN ANSWER, CM HAS EXPANDED [facility] REFERRAL TO [facility] CONTRACTED W/[facility] AND AWAITING OFFER FOR SERVICES, CM WILL CONT TO FOLLOW.
--- NOTE | 2022-12-07 13:05 | HO.PM.IMPN ---
Subjective Subjective Date of Service: 12/07/22 Interval History: Continues to improve. toward day [place]; wishes to pursue rehab at the short term Review of Systems Denies chest pain Denies shortness of breath Denies nausea vomiting diarrhea Denies fever chills Physical Exam Vital Signs: Vital Signs: Last Vital Signs Temp 97.3 F 12/07/22 11:18 Pulse 82 12/07/22 11:18 Resp 20 12/07/22 11:18 BP 146/74 H 12/07/22 11:18 Pulse Ox 98 12/07/22 11:18 O2 Del Method Room Air 12/07/22 11:18 BMI result Body Mass Index 26.3 Const: Other: Awake alert conversant Neck: Other: Rightward torticollis Resp: Other: Clear to auscultation bilaterally no rales rhonchi or wheezes Cardio: Other: No S4; positive S1-S2; no S3 murmurs rubs or gallops GI: Other: Soft nontender nondistended normoactive bowel sounds Extrem: Other: No edema bilaterally Objective Data Active Medications Acetaminophen (Acetaminophen 325 Mg Tablet) 650 mg PO Q6H PRN PRN Reason: Pain, Mild (Pain Scale 1-3) Aspirin (Aspirin Enteric Coated 81 Mg Tablet.) 81 mg PO DAILY [facility] Last Admin: 12/07/22 10:44 Dose: 81 mg Documented By: DERRICK Atorvastatin Calcium (Atorvastatin Calcium 40 Mg Tablet) 40 mg PO DAILY [facility] Last Admin: 12/07/22 10:44 Dose: 40 mg Documented By: DERRICK Docusate Sodium (Docusate Sodium 100 Mg Capsule) 100 mg PO DAILY PRN PRN Reason: Constipation Levetiracetam (Levetiracetam Oral Soln 500 Mg/5 Ml) 1,000 mg PO BID [facility] Last Admin: 12/07/22 10:44 Dose: 1,000 mg Documented By: DERRICK Melatonin (Melatonin 3 Mg Tablet) 6 mg PO BEDTIME PRN PRN Reason: Insomnia Last Admin: 12/07/22 01:30 Dose: 6 mg Documented By: RADHA Ondansetron HCl (Ondansetron Hcl 4 Mg/2 Ml Vial) 4 mg IVPUSH Q8H PRN PRN Reason: Nausea and Vomiting Rivaroxaban (Rivaroxaban 20 Mg Tablet) 20 mg PO DAILY@1700 [facility] Last Admin: 12/06/22 17:18 Dose: 20 mg Documented By: DERRICK Sodium Chloride (0.9 % Sodium Chloride Flush 3 Ml Syringe) 3 ml IVFLUSH QSHIFT [facility] Last Admin: 12/07/22 10:44 Dose: 3 ml Documented By: DERRICK Labs 12/05/22 07:20 12/05/22 07:20 Microbiology Microbiology Results: Microbiology 12/03/22 14:31 Blood Culture - Preliminary Blood - Venous Prelim: GPC Gram Stain only Assessment and Plan (1) Encephalopathy: Status: Acute Plan 67-year-old female with history of DVT left lower extremity, hypertension, history of brain cancer s/p tumor resection chemo and radiation in 2009, unspecified seizure disorder, history CVA, TERI on CPAP, chronic fixed torticollis, and hyperlipidemia admitted with acute metabolic encephalopathy with concern for CVA; returning to baseline 1. Likely TIA. Patient qualifies for short-term rehab and will be transferred to [facility]. Continue Xarelto and other therapies as ordered Xarelto Full code Time Spent With Patient Time: Total time managing care of this patient today ____ minutes. Quality Stroke Does the patient have a stroke diagnosis?: No Reason for No Anti-thrombotic by Day Two: Drug treatment not indicated VTE Prior VTE?: Yes VTE Risk Level:: Medical - moderate - high VTE Device Contraindication: Treatment Not Indicated VTE Drug Contraindication: N/A - Med Ordered
[2022-12-07 13:11] VITALS: BP 146/74; PULSE 82; O2SAT 98
[2022-12-07 15:33] VITALS: BP 136/94; PULSE 66; RESP 20; TEMP 36.3; O2SAT 99
== END 2022-12-07 15:49 | disposition skilled nursing facility (03) | DRG 69 ==
LOC: HO.ED 20:29 → HO.EDOVER 21:35 → HO.IMC 12-04 12:03
PROVIDERS: Emergency Medicine; Nurse Practitioner Acute Care; Admitting Provider Physician Assistant; Emergency Provider Emergency Medicine; PCP Nurse Practitioner Family; Visit Provider Hospitalist
DX: G45.9 Transient cerebral ischemic attack, unspecified (principal); G93.41 Metabolic encephalopathy; G47.33 Obstructive sleep apnea (adult) (pediatric); E78.5 Hyperlipidemia, unspecified; M43.6 Torticollis; G40.909 Epilepsy, unspecified, not intractable, without status epilepticus; I10 Essential (primary) hypertension; Z20.822 Contact with and (suspected) exposure to COVID-19; Z86.718 Personal history of other venous thrombosis and embolism; Z85.841 Personal history of malignant neoplasm of brain; Z79.01 Long term (current) use of anticoagulants; Z79.82 Long term (current) use of aspirin; Z79.899 Other long term (current) drug therapy
CPT/HCPCS: 0241U; 36415; 70450; 70496; 70498; 70553; 71045; 80048; 80061; 80076; 80307; 81001; 82140; 82803; 83605; 83690; 83880; 84443; 84484; 85025; 87040; 87205; 87635; 92526; 92610; 93005; 93306; 95816; 97116; 97161; 97166; 97530; 97535; 99285; A9585; J0696; J2270; J2405; Q9957; Q9967

== ENCOUNTER 2022-12-03 21:06 | Outpatient (BNV) | payer OTHER, SELFPAY | END 2022-12-06 07:00 | PROVIDERS: Admitting Provider Physician Assistant; Emergency Provider Emergency Medicine; PCP Nurse Practitioner Family; Visit Provider Internal Medicine | DX: I34.81 Nonrheumatic mitral (valve) annulus calcification (principal) | CPT/HCPCS: 93306 ==

== ENCOUNTER → 2022-12-03 21:06 | Outpatient (BNV) | payer OTHER, SELFPAY | PROVIDERS: Admitting Provider Physician Assistant; Emergency Provider Emergency Medicine; Visit Provider Physician Assistant | DX: G93.40 Encephalopathy, unspecified (principal) | CPT/HCPCS: 99223; 99232; 99233; 99239 ==

== ENCOUNTER 2022-12-10 17:56 | Inpatient (IN) | payer OTHER, SELFPAY ==
[2022-12-10] VITALS (7 sets, daily range): BP systolic 110–170; BP diastolic 60–94; PULSE 82–109; RESP 12–24; TEMP 37–37.2; O2SAT 86–100; BMI 27.2
--- NOTE | ~2022-12-10 | XR_ITS ---
EXAMINATION: XR CHEST CLINICAL INFORMATION: Shortness of breath. COMPARISON: 12/03/2022. TECHNIQUE: Frontal view of the chest was obtained. FINDINGS: Hypoexpanded lungs. No consolidation. The right apex is obscured by the patient's head. The cardiomediastinal silhouette is stable. XR/XR chest 1V IMPRESSION: Limited exam. Hypoexpanded lungs. No focal pneumonia.
[2022-12-10 19:31] LABS: MANUAL DIFF FLAG NO
[2022-12-10 19:33] LABS: Basophils Percent Auto 0.5 % (0-2); Eosinophils Absolute Auto 0.1 X10*3/uL (0.0-0.4); Eosinophils Percent Auto 1.2 % (0-4); Hematocrit 43.5 % (37.0-47.0); Hemoglobin 13.7 g/dl (12.0-16.0); Imm Gran Abs Auto 0.02 X10*3/uL (0.00-0.03); Imm Gran Pct Auto 0.3 % (0.0-0.4); Lymphocytes Absolute Auto 0.6 X10*3/uL (1.2-4.9); Lymphocytes Percent Auto 8.1 % (20-40); Mean Corpuscular HGB Conc 31.5 g/dl (31.0-35.0); Mean Corpuscular Hemoglobin 27.2 pg (27.0-33.0); Mean Corpuscular Volume 86.3 fL (80.0-98.0); Mean Platelet Volume 10.1 fL (9.4-12.3); Monocytes Absolute Auto 0.7 X10*3/uL (0.1-1.2); Monocytes Percent Auto 9.5 % (2-11); Neutrophils Absolute Auto 5.9 x10*3/uL (2.0-8.3); Neutrophils Percent Auto 80.4 % (45-73); Platelet Count 243 X10*3/uL (160-400); Red Blood Count 5.04 X10*6/uL (4.20-5.50); White Blood Count 7.4 X10*3/uL (4.8-10.8)
[2022-12-10 19:49] LABS: COVID-19 Test Positive (Negative); IDNOW Serial# 08D9AD1C; IDNOW Serial# BCCEAD1C
[2022-12-10 19:50] LABS: Influenza A Negative (Negative); Influenza B2 Negative (Negative)
[2022-12-10 19:55] LABS: Lactic Acid 1.4 mmol/L (0.5-2.0)
[2022-12-10 19:57] LABS: Anion Gap 14 (12-20); Blood Urea Nitrogen 16 mg/dL (9-16); Calcium 9.2 mg/dL (8.4-10.2); Carbon Dioxide 27 mmol/L (22-29); Chloride 103 mmol/L (96-108); Creatinine Clr Calc Pharmacy 66.9; Estimated Glomerular Filt Rate > 60; Glucose Random 157 mg/dL (60-115); Potassium 3.3 mmol/L (3.3-5.1); Sodium 141 mmol/L (135-145)
--- NOTE | 2022-12-10 22:52 | ED_ITS ---
HPI - Fever General Chief Complaint: Dyspnea Stated Complaint: COVID+ WITH FEVER PER EMS Time Seen by Provider: 12/10/22 22:50 Source: patient and family Mode of arrival: ambulatory Limitations: no limitations History of Present Illness HPI Narrative: 67-year-old female with history of DVT left lower extremity, hypertension, history of brain cancer s/p tumor resection chemo and radiation in 2009, unspecified seizure disorder, history CVA, TERI on CPAP, chronic fixed torticollis, and hyperlipidemia recently hospitalized 12/07/2022 encephalopathy/TIA and then sent to [facility] for short-term rehab who presents emergency department for evaluation of cough, shortness of breath, fever, hypoxia with O2 saturation 86% on room air and COVID positive x1 day. According to the patient's , the patient was complaining of shortness of breath, she had a cough and chest pain. The patient is currently on 2 L via nasal cannula her O2 saturation is 98 100%. Patient is oriented to person and place, she told me she is feeling better and no longer has chest pain. According to her , patient has had to COVID-19 vaccinations and she had 1 COVID-19 illness Related Data Home Medications Medication Instructions Recorded Confirmed multivitamin 1 tab PO DAILY 03/30/22 12/04/22 sennosides 8.6 mg tablet (senna) 8.6 mg PO DAILY PRN Constipation 03/30/22 12/04/22 levetiracetam 100 mg/mL oral 1,000 mg PO TID 05/30/22 12/04/22 solution Previous Rx's Medication Instructions Recorded aspirin 81 mg tablet,delayed 81 mg PO DAILY #90 tabs 04/21/22 release atorvastatin 40 mg tablet 40 mg PO DAILY #90 tabs 04/21/22 rivaroxaban 20 mg tablet (Xarelto) 20 mg PO DAILY #90 tabs 04/21/22 miscellaneous medical supply #240 ea 10/05/22 amlodipine 5 mg tablet 5 mg PO DAILY 30 days #30 tabs 10/15/22 Allergies Allergy/AdvReac Type Severity Reaction Status Date / Time apple [Apple] Allergy Severe THROAT Verified 12/03/22 22:58 SWELLING pollen extracts [POLLEN] Allergy Intermediate SNEEZING Verified 12/03/22 22:58 COUGHING ALOT kiwi AdvReac Intermediate VOMITING Verified 12/03/22 22:58 [Kiwi (Actinidia Chinensis)] avocado [Avocado] AdvReac Mild VOMITING Verified 12/03/22 22:58 Review of Systems 2 Review of Systems: Yes all other systems are reviewed and are negative [facility] Past Medical History [facility] Narrative: Social history: Patient lives at home with her , she was transferred from [facility] where she was getting short-term rehab after being hospitalized on 12/07/2022 for encephalopathy/TIA. Medical History Metabolic alkalosis with respiratory acidosis Encounter for palliative care Sebaceous cyst of axilla Essential hypertension PVC (premature ventricular contraction) PAC (premature atrial contraction) Torticollis, acquired UTI (urinary tract infection), bacterial Bladder incontinence Unspecified urinary incontinence Abscess Symptomatic PVCs Physical exam, annual Stroke Insomnia Closed fracture of fibula with routine healing Fracture of distal end of fibula Right ankle pain Seizure HTN (hypertension) Brain cancer DVT (deep venous thrombosis) Surgical History Hx of section Hx of tubal ligation H/O craniotomy Family History Family History Mother Diabetes Father Heart disease Family/Other Breast cancer Brain cancer Diabetes Social History Social History Household Members: Spouse Housing: House Housing Other:: Lives with Spouse Do you presently have visiting nurse or other home services: Yes ([facility]) Unable to assess alcohol history related to: Unable to respond Alcohol intake: never Patient Tobacco Use Status: Never used Tobacco Smoked in Last 30 Days: No e-Cigarette/Vaping Use: Never Used Second Hand Smoke Exposure: No Use of substances other than those prescribed or required for medical reasons: No Advance Directives: Yes Advance Directives on File: Yes Advance Directives Date on File: 02/12/20 service: No Current occupational status: unemployed and disabled Cognitive needs: No Hearing needs: No Vision needs: No Physical Exam 2 Vital Signs: Vital Signs: Last Vital Signs Temp 98.6 F 12/10/22 19:35 Pulse 85 12/10/22 22:13 Resp 12 12/10/22 22:13 BP 170/73 H 12/10/22 22:13 Pulse Ox 98 12/10/22 22:13 O2 Del Method Nasal Cannula 12/10/22 22:13 O2 Flow Rate 2 12/10/22 22:13 Oxygen Flow Rate 2 12/10/22 18:18 BMI result Body Mass Index 27.2 Vital sign revealed that she was afebrile,, elevated BP 170/73, O2 saturation was 98% on 2 L via nasal cannula Exam General: Patient has chronic torticollis with her head tilted to the right at a near 90 degree angle. Head: Normocephalic, atraumatic EENT: PERRL, Lids normal, sclera normal, conjunctiva normal, nose normal , ears normal, throat without erythema or exudates Neck: Supple, no adenopathy, no trachea midline or C-spine tenderness Lung: breath sounds symmetric, diffuse rhonchi Chest: symmetric movement, nontender Heart: regular rate and rhythm, normal S1, S2 no murmurs or rubs Abdomen: soft, non-tender, nondistended, normal bowel sounds Back: no vertebral tenderness, no CVAT Extremities: no deformities, moves all extremities symmetrically Neuro: Awake, oriented to person place, normal speech Psych: Pleasant, cooperative Medical Decision Making Medical Decision Making MDM Narrative: 67-year-old female with history of DVT left lower extremity, hypertension, history of brain cancer s/p tumor resection chemo and radiation in 2009, unspecified seizure disorder, history CVA, TERI on CPAP, chronic fixed torticollis, and hyperlipidemia recently hospitalized 12/07/2022 encephalopathy/TIA and then sent to [facility] for short-term rehab who presents emergency department for evaluation of cough, shortness of breath, fever, hypoxia with O2 saturation 86% on room air and COVID positive x1 day. Examination revealed that she was afebrile, she did have an elevated blood pressure. Lungs revealed diffuse rhonchi. Following evaluation was ordered: CBC, BMP, lactic acid, liver panel, influenza, COVID-19, urinalysis, blood cultures x2, chest x-ray one view. 23:22 Patient's laboratory evaluation was unremarkable, chest x-ray did not reveal any acute infiltrates. Given the patient's hypoxia, she will need to be admitted for oxygen therapy for her COVID-19 infection/pneumonia At this time, I do not suspect sepsis. She was given dexamethasone 6 mg IV. Patient's presentation was discussed over tiger text with the covering hospitalist, Dr. Linares and the patient was accepted to the medical service. Differential Diagnosis Differential Diagnoses: The differential diagnosis associated with the presentation includes 23:19 Differential diagnosis includes was not limited to COVID-19 pneumonia, influenza, bacterial pneumonia, electrolyte abnormality, anemia Lab Data MDM Lab Attestation statement: I reviewed the patient's lab results. My independent interpretation patient's laboratory evaluation as follows: CBC was normal with a white count of 7400 with a left shift 80 neutrophils. Glucose elevated 157. COVID-19 positive, influenza was negative. 12/10/22 19:26 12/10/22 19:26 Labs: Lab Results 12/10/22 Range/Units 19:26 WBC 7.4 (4.8-10.8) X10*3/uL RBC 5.04 (4.20-5.50) X10*6/uL Hgb 13.7 (12.0-16.0) g/dl Hct 43.5 (37.0-47.0) % MCV 86.3 (80.0-98.0) fL MCH 27.2 (27.0-33.0) pg MCHC 31.5 (31.0-35.0) g/dl RDW 14.0 (11.0-16.0) % Plt Count 243 (160-400) X10*3/uL MPV 10.1 (9.4-12.3) fL Immature Gran % (Auto) 0.3 (0.0-0.4) % Neut % (Auto) 80.4 H (45-73) % Lymph % (Auto) 8.1 L (20-40) % [place] % (Auto) 9.5 (2-11) % Eos % (Auto) 1.2 (0-4) % Baso % (Auto) 0.5 (0-2) % Lymph # (Auto) 0.6 L (1.2-4.9) X10*3/uL [place] # (Auto) 0.7 (0.1-1.2) X10*3/uL Eos # (Auto) 0.1 (0.0-0.4) X10*3/uL Baso # (Auto) 0.0 (0.0-0.2) X10*3/uL Abs Immat Gran (auto) 0.02 (0.00-0.03) X10*3/uL Absolute Neuts (auto) 5.9 (2.0-8.3) x10*3/uL Absolute Nucleated RBC 0.000 (0.0-0.012) X10*3/uL Nucleated RBC % (auto) 0.0 (0.0-0.2) /100WBC Sodium 141 (135-145) mmol/L Potassium 3.3 (3.3-5.1) mmol/L Chloride 103 (96-108) mmol/L Carbon Dioxide 27 (22-29) mmol/L Anion Gap 14 (12-20) BUN 16 (9-16) mg/dL Creatinine 0.84 (0.5-1.4) mg/dL Estim Creat Clear Calc 66.9 Estimated GFR > 60 Random Glucose 157 H (60-115) mg/dL Lactic Acid 1.4 (0.5-2.0) mmol/L Calcium 9.2 (8.4-10.2) mg/dL COVID-19 (JURGEN) Positive A (Negative) COVID-19 Clin Com See Note Influenza Type A (JESUS) Negative (Negative) Influenza Type B (JESUS) Negative (Negative) Influenza A & B Note See Note Independent Interpretation I performed an independent interpretation of an: Plain X-Ray Interpretation: My independent interpretation of the patient's one-view chest x-ray is as follows: No acute infiltrate Radiology Impression Radiologist Impression: XR chest 1V IMPRESSION: Limited exam. Hypoexpanded lungs. No focal pneumonia. Dictated By: Scot Matos MD Critical Care Time Critical Care Time Critical Care Time: Yes Total Critical Care Time: 35 Attestation: Critical Care: The patient was critically ill with a high probability of imminent or life threatening deterioration. I spent greater than 30 minutes of discontinuous time evaluating the patient,delivering critical care at the bedside, discussing and evaluating pertinent data with consultants. Critical care time does not include time spent performing separately billable procedures or teaching. Total time spent performing critical care was 35 minutes. Discharge Plan Discharge Prescriptions: No Action aspirin 81 mg tablet,delayed release (DR/EC) 81 mg PO DAILY Qty: 90 3RF atorvastatin 40 mg tablet 40 mg PO DAILY Qty: 90 3RF Xarelto 20 mg tablet 20 mg PO DAILY Qty: 90 3RF Rx Instructions: must administer with evening meal (DME) miscellaneous medical supply Misc See Rx Instructions .ROUTE .MEDSUPPLY Qty: 240 6RF Rx Instructions: Disposable Diaper-PullUps. size large 8x daily As directed, 30 day supply amlodipine 5 mg tablet 5 mg PO DAILY 30 Days Qty: 30 1RF multivitamin Tablet 1 tab PO DAILY sennosides [senna] 8.6 mg tablet 8.6 mg PO DAILY PRN (Reason: Constipation) levetiracetam 100 mg/mL solution 1,000 mg PO TID
[2022-12-10 23:33] LABS: Alanine Aminotransferase 27 U/L (0-31); Albumin Level 3.9 g/dL (3.5-5.0); Alkaline Phosphatase 146 U/L (39-117); Aspartate Amino Transferase 26 U/L (5-31); Bilirubin Direct 0.1 mg/dL (0.0-0.5); Bilirubin Total 0.3 mg/dL (0.0-1.0); Total Protein 7.6 g/dL (6.5-8.0)
[2022-12-10 23:59] LABS: Appearance Urine Clear; Color Urine Yellow; Glucose Urine UA Negative (Negative); Leukocyte Esterase Urine Negative (Negative); Nitrite Urine Negative (Negative); PH 5.5 (5.0-9.0); Specific Gravity - Urine >= 1.030 (1.005-1.025); UMIC TRIGGER UACC YES; Urine Blood Small (1+) (Negative); Urine Ketones Negative (Negative); Urine Protein Trace mg/dL (Neg-Trace)
[2022-12-11] VITALS (8 sets, daily range): BP systolic 127–186; BP diastolic 65–91; PULSE 72–116; RESP 16–20; TEMP 36.6–37.3; O2SAT 96–100
[2022-12-11] MEDS: dexAMETHasone sod phosphate 4 MG/ML VIAL 6 MG IVPUSH ×2 (00:01→07:59)
--- NOTE | 2022-12-11 00:04 | P.HPHOSP_ITS ---
History of Present Illness Date of Service: 12/11/22 Chief Complaint: Dyspnea This is a 67-year-old female with pertinent history of seizure disorder on Keppra, history of DVT on Xarelto, mixed hyperlipidemia, essential hypertension, history of brain cancer status post tumor resection, chemo and radiation in 2009, TERI on CPAP who was sent to the emergency department for evaluation of cough, fever and hypoxemia. History obtained from ER provider, chart review and patient's . Patient tested positive for COVID-19 1 day prior to presentation. Does have a productive cough with intermittent clear mucus production. No chest discomfort, palpitations, abdominal pain, changes in urinary or bowel habits. In the emergency department, patient tested positive for COVID-19 and requiring supplemental oxygen. Review of Systems 2 Constitutional: Constitutional: Reports chills, Reports fatigue and Reports lethargy Cardiovascular: Cardiovascular: Reports dyspnea on exertion Respiratory: Respiratory: Reports cough and Reports dyspnea on exertion Genitourinary: Genitourinary: Reports no additional female genitourinary complaints Endocrine: Endocrine: Reports fatigue PMFSH Medical History Metabolic alkalosis with respiratory acidosis Encounter for palliative care Sebaceous cyst of axilla Essential hypertension PVC (premature ventricular contraction) PAC (premature atrial contraction) Torticollis, acquired UTI (urinary tract infection), bacterial Bladder incontinence Unspecified urinary incontinence Abscess Symptomatic PVCs Physical exam, annual Stroke Insomnia Closed fracture of fibula with routine healing Fracture of distal end of fibula Right ankle pain Seizure HTN (hypertension) Brain cancer DVT (deep venous thrombosis) Family History Mother Diabetes Father Heart disease Family/Other Breast cancer Brain cancer Diabetes Surgical History Hx of section Hx of tubal ligation H/O craniotomy Social History Household Members: Spouse Housing: House Housing Other:: Lives with Spouse Do you presently have visiting nurse or other home services: Yes ([employer]) Unable to assess alcohol history related to: Unable to respond Alcohol intake: never Patient Tobacco Use Status: Never used Tobacco Smoked in Last 30 Days: No e-Cigarette/Vaping Use: Never Used Second Hand Smoke Exposure: No Use of substances other than those prescribed or required for medical reasons: No Advance Directives: Yes Advance Directives on File: Yes Advance Directives Date on File: 02/12/20 service: No Current occupational status: unemployed and disabled Cognitive needs: No Hearing needs: No Vision needs: No Meds Allergies Allergy/AdvReac Type Severity Reaction Status Date / Time apple [Apple] Allergy Severe THROAT Verified 12/03/22 22:58 SWELLING pollen extracts [POLLEN] Allergy Intermediate SNEEZING Verified 12/03/22 22:58 COUGHING ALOT kiwi AdvReac Intermediate VOMITING Verified 12/03/22 22:58 [Kiwi (Actinidia Chinensis)] avocado [Avocado] AdvReac Mild VOMITING Verified 12/03/22 22:58 Home Medications Medication Instructions Recorded Confirmed Last Taken Type multivitamin 1 tab PO DAILY 03/30/22 12/04/22 Unknown History sennosides 8.6 mg tablet (senna) 8.6 mg PO DAILY PRN Constipation 03/30/22 12/04/22 Unknown History levetiracetam 100 mg/mL oral 1,000 mg PO TID 05/30/22 12/04/22 Unknown History solution Physical Exam 2 Vital Signs and Narrative: Vital Signs: Last Vital Signs Temp 98.6 F 12/10/22 19:35 Pulse 98 12/10/22 23:58 Resp 24 H 12/10/22 23:58 BP 164/94 H 12/10/22 23:58 Pulse Ox 100 12/10/22 23:58 O2 Del Method Nasal Cannula 12/10/22 23:58 O2 Flow Rate 2 12/10/22 23:58 Oxygen Flow Rate 2 12/10/22 18:18 BMI result Body Mass Index 27.2 Middle-aged female in mild distress on supplemental oxygen Neck supple, no JVD, chronic torticollis with head tilted to the right Regular rate and rhythm, S1-S2 heard Regular breath sounds bilaterally, no wheezing or crackles appreciated Abdomen soft nontender, no guarding, no rigidity Patient is awake, alert and oriented to self and place ; no focal motor deficit Psych: Normal mood No pedal edema Results Labs 12/10/22 19:26 12/10/22 19:26 Labs: Laboratory Results - last 24 hr 12/10/22 19:26 MCV 86.3 MCH 27.2 MCHC 31.5 RDW 14.0 Plt Count 243 MPV 10.1 Immature Gran % (Auto) 0.3 Neut % (Auto) 80.4 H Lymph % (Auto) 8.1 L [place] % (Auto) 9.5 Eos % (Auto) 1.2 Baso % (Auto) 0.5 Lymph # (Auto) 0.6 L [place] # (Auto) 0.7 Eos # (Auto) 0.1 Baso # (Auto) 0.0 Abs Immat Gran (auto) 0.02 Absolute Neuts (auto) 5.9 Absolute Nucleated RBC 0.000 Nucleated RBC % (auto) 0.0 Anion Gap 14 Estim Creat Clear Calc 66.9 Estimated GFR > 60 Random Glucose 157 H Lactic Acid 1.4 Calcium 9.2 Total Bilirubin 0.3 Direct Bilirubin 0.1 AST 26 ALT 27 Alkaline Phosphatase 146 H Total Protein 7.6 Albumin 3.9 COVID-19 (JURGEN) Positive A COVID-19 Clin Com See Note Influenza Type A (JESUS) Negative Influenza Type B (JESUS) Negative Influenza A & B Note See Note Imaging Radiologist's Impressions: Impressions Chest X-Ray 12/10/22 19:07 IMPRESSION: Limited exam. Hypoexpanded lungs. No focal pneumonia. Assessment and Plan (1) COVID-19 virus infection: Status: Acute (2) Hypoxia: Status: Acute Plan This is a 67-year-old female with pertinent history of seizure disorder on Keppra, history of DVT on Xarelto, mixed hyperlipidemia, essential hypertension, history of brain cancer status post tumor resection, chemo and radiation in 2009, TERI on CPAP who was sent to the emergency department for evaluation of cough, fever and hypoxemia. #. Acute hypoxemic respiratory failure secondary to COVID-19 infection: Will admit patient with supplemental oxygen. Initiating Decadron 6 mg daily. No bacterial superinfection, defer antibiotics. Monitor supplemental oxygen and wean as tolerated #. Seizure disorder: Continue Keppra #. History of DVT: On Xarelto #. Mixed hyperlipidemia: On statin #. Essential hypertension: Continue home antihypertensives Med rec pending DVT prophylaxis: Xarelto Admit as inpatient and will require two night minimum hospital stay for supplemental oxygen Time Spent With Patient Time: Total time managing care of this patient today ____ minutes. Quality Stroke Does the patient have a stroke diagnosis?: No VTE Prior VTE?: No VTE Risk Level:: Medical - moderate - high VTE Device Contraindication: Treatment Not Tolerated VTE Drug Contraindication: N/A - Med Ordered
[2022-12-11 01:02] LABS: Bacteria Urine Trace (None Seen); Hyaline Casts Urine 0-2 /LPF (0-2); Squamous Epithelial Cell Urine 0-2 /HPF (0-2); WBC Urine 0-5 /HPF (0-5)
[2022-12-11] MEDS: levETIRAcetam Oral Soln 500 MG/5 ML 1000 MG PO (06:34)
[2022-12-11 06:57] LABS: Anion Gap 14 (12-20); Blood Urea Nitrogen 10 mg/dL (9-16); Carbon Dioxide 21 mmol/L (22-29); Chloride 108 mmol/L (96-108); Creatinine Clr Calc Pharmacy 92.1; Estimated Glomerular Filt Rate > 60; Glucose Random 153 mg/dL (60-115); Potassium 5.1 mmol/L (3.3-5.1); Sodium 138 mmol/L (135-145)
[2022-12-11 07:19] LABS: PLT CLUMP 1; SCAN SMEAR FLAG 1
[2022-12-11 07:21] LABS: Basophils Percent Auto 0.4 % (0-2); Eosinophils Percent Auto 0.3 % (0-4); Hematocrit 43.9 % (37.0-47.0); Hemoglobin 13.6 g/dl (12.0-16.0); Imm Gran Abs Auto 0.02 X10*3/uL (0.00-0.03); Imm Gran Pct Auto 0.3 % (0.0-0.4); Lymphocytes Absolute Auto 0.6 X10*3/uL (1.2-4.9); Lymphocytes Percent Auto 8.4 % (20-40); MANUAL DIFF FLAG SCAN; Mean Corpuscular Hemoglobin 26.8 pg (27.0-33.0); Mean Corpuscular Volume 86.6 fL (80.0-98.0); Mean Platelet Volume 11.4 fL (9.4-12.3); Monocytes Absolute Auto 0.1 X10*3/uL (0.1-1.2); Monocytes Percent Auto 1.5 % (2-11); Neutrophils Percent Auto 89.1 % (45-73); Red Blood Count 5.07 X10*6/uL (4.20-5.50)
[2022-12-11 07:29] LABS: White Blood Count 6.8 X10*3/uL (4.8-10.8)
[2022-12-11] MEDS: 0.9 % Sodium Chloride Flush 3 ML SYRINGE IVFLUSH ×2 (07:59→18:37)
[2022-12-11 08:04] LABS: Platelet Count 163 X10*3/uL (160-400); SLIDE REVIEW VERIFIED
--- NOTE | 2022-12-11 08:08 | PC.NURSE ---
pt very sleepy this morning, took a little while to awake the pt, once fully awake pt reports feeling generally weak, denies pain, respirations even and unlabored, ls clear, pt is currently on oxygen on 1l and sating well but pt typically does not require oxygen at baseline, pt has a purewick in place and draining well about 400ml of yellow urine in the canister. pt set up with breakfast fernando and is assisting the pt eating
--- NOTE | 2022-12-11 09:02 | PHA.MEDREC ---
Pharmacy Consult ? Medication Reconciliation Pharmacy has completed the medication reconciliation.Med rec complete, used list from [facility].
--- NOTE | 2022-12-11 10:15 | PC.NURSE ---
awaiting for pharmacy to verify my meds
[2022-12-11] MEDS: Atorvastatin Calcium 40 MG TABLET PO (10:42)
[2022-12-11] MEDS: Aspirin Enteric Coated 81 MG TABLET.DR PO (10:42)
[2022-12-11] MEDS: Multivitamin TABLET 1 TAB PO (10:42)
[2022-12-11] MEDS: amLODIPine Besylate 5 MG TABLET PO (10:43)
--- NOTE | 2022-12-11 10:50 | PM.EVENT ---
Event Note Date of Service: 12/11/22 Event Note: Pt seen and examined with RN, at bedside. Seemingly better, Off O2 presently 97 % on room air. No indication for remdesevir and may not even need steroid if O2 continues to be normal. Time Spent With Patient Time: Total time managing care of this patient today ____ minutes.
--- NOTE | 2022-12-11 11:07 | PC.NURSE ---
pt medicated with her daily medications, pt does take her medications crushed and with applesauce
--- NOTE | 2022-12-11 11:58 | PC.NURSE ---
assumed care of pt at 1100, pt resting quietly, at bedside, COVID +ve, precautions in place, O2 WNL on RA, other vss. pt pending bed assignment - tentative plan for d/c tomorrow. no new orders at this time.
--- NOTE | 2022-12-11 13:51 | PC.NURSE ---
pt resting in bed, vss, O2 sat maintaining at 96% on RA, afebrile. lunch tray brought in, pt repositioned, family at bedside assisting w feeding. no new orders at this time.
--- NOTE | 2022-12-11 14:31 | PC.NURSE ---
pt spilled coffee on linens, incontinent of urine, pt cleaned and linens changed, repositioned in bed.
[2022-12-11] MEDS: Acetaminophen 325 MG TABLET 650 MG PO (18:36)
[2022-12-11] MEDS: Rivaroxaban 20 MG TABLET PO (18:37)
--- NOTE | 2022-12-11 18:46 | PC.NURSE ---
pt resting quietly, vss, boosted in bed- linens dry, purewick in place, medicated per MAR - meds taken w chocolate pudding. family at bedside assisting w feeding.
--- NOTE | 2022-12-11 23:30 | PC.NURSE ---
this rn assumed care of pt at 2300. pt lung sounds clear bilaterally, respirations even and unlabored. pt abdomen soft non tender to touch with active bowel sounds in all 4 quadrants. pt denies pain and SOB at this time, sating at 98% room air. purewick in place.
[2022-12-12] MEDS: 0.9 % Sodium Chloride Flush 3 ML SYRINGE IVFLUSH ×2 (01:37→08:13)
--- NOTE | 2022-12-12 03:06 | PC.NURSE ---
this rn assumed care of pt. pt reports no pain at this time. pt keeps removing oxygen sensor , pt o2 between 97-98 room air
[2022-12-12 05:57] VITALS: BP 160/74; PULSE 68; RESP 16; TEMP 36.9; O2SAT 98
--- NOTE | 2022-12-12 07:09 | PC.NURSE ---
Resumed care of patient at 0700, is bedside, she is currently resting comfortably on RA. Pt is not currently on Monitor d/t continuously ripping off monitor per night nurse. Covid precautions maintained.
--- NOTE | 2022-12-12 07:58 | PM.DS ---
DS: Providers Provider Date of Service: 12/12/22 Date of admission: 12/11/22 00:03 Primary care physician: Neto Aguirre CNP DS: Diagnosis Discharge Diagnosis (1) COVID-19 virus infection: Status: Acute (2) Hypoxia: Status: Acute DS: Summary Hospital Course Hospital Course: Chief Complaint: Dyspnea This is a 67-year-old female with pertinent history of seizure disorder on Keppra, history of DVT on Xarelto, mixed hyperlipidemia, essential hypertension, history of brain cancer status post tumor resection, chemo and radiation in 2009, TERI on CPAP who was sent to the emergency department for evaluation of cough, fever and hypoxemia. History obtained from ER provider, chart review and patient's . Patient tested positive for COVID-19 1 day prior to presentation. Does have a productive cough with intermittent clear mucus production. No chest discomfort, palpitations, abdominal pain, changes in urinary or bowel habits. In the emergency department, patient tested positive for COVID-19 and requiring supplemental oxygen. Hospital course: The patient arrived with shortness of breath and was diagnosed with COVID-19. Oxygen therapy and intravenous dexamethasone were promptly administered, resulting in a kiser improvement in oxygen levels. Currently, the patient's oxygen saturation is at 97% while breathing ambient air, and she is comfortable. Consequently, she has been discharged to continue a five-day course of dexamethasone at a daily dosage of 6 mg at home. The patient has been advised to follow the isolation guidelines outlined by the CDC. Plan discussed with at the bedside Final diagnosis: Acute hypoxic respriatory failure Covid 19 Time Spent with Patient Time attestation: Total time managing care of this patient today ____ minutes. Discharge coordination time: Greater than 30 minutes Quality: Safe Use of Opioids Does Pt have an Active Cancer Diagnosis on the Problem List?: No Quality: Stroke Does the patient have a stroke diagnosis?: No Physical Exam Vital Signs: Vital Signs: Last Vital Signs Temp 98.5 F 12/12/22 05:57 Pulse 68 12/12/22 05:57 Resp 16 12/12/22 05:57 BP 160/74 H 12/12/22 05:57 Pulse Ox 98 12/12/22 05:57 O2 Del Method Room Air 12/12/22 05:57 O2 Flow Rate 1 12/11/22 07:54 Oxygen Flow Rate 2 12/10/22 18:18 BMI result Body Mass Index 27.2 DS: Data Data Completed and Pending Completed studies during hospitalization [Text1]: Procedures Insertion of Endotracheal Airway into Trachea, Via Natural or Artificial Opening (12/20/21) Insertion of Infusion Device into Superior Vena Cava, Percutaneous Approach (12/20/21) Insertion of Monitoring Device into Lower Artery, Percutaneous Approach (12/20/21) Introduction of Vasopressor into Peripheral Vein, Percutaneous Approach (12/20/21) Monitoring of Arterial Pressure, Peripheral, Percutaneous Approach (12/20/21) Monitoring of Arterial Pulse, Peripheral, Percutaneous Approach (12/20/21) Respiratory Ventilation, Greater than 96 Consecutive Hours (12/20/21) Ultrasonography of Superior Vena Cava, Guidance (12/20/21) Labs on day of discharge: Laboratory Results - last 24 hr 12/11/22 06:13 Plt Count 163 D Smear Tech's Comments VERIFIED Preliminary micro results at discharge 12/10/22 19:55 Blood Culture - Preliminary Blood - Venous No growth after 24 hours. 12/10/22 19:27 Blood Culture - Preliminary Blood - Venous No growth after 24 hours. Discharge Plan Discharge Anticipated Discharge Date/Time: 12/12/22 07:54 Patient Disposition: Home, Self-Care Discharge Diagnosis: Hypoxia due to covid 109 Referrals: Neto Aguirre, AUTOMOTIVE QUALITY ENGINEER [Primary Care Provider] - 1 Week Discharge Medications: New dexamethasone 6 mg tablet 6 mg PO DAILY Qty: 5 0RF Continued aspirin 81 mg tablet,delayed release (DR/EC) 81 mg PO DAILY Qty: 90 3RF atorvastatin 40 mg tablet 40 mg PO DAILY Qty: 90 3RF (DME) miscellaneous medical supply Misc See Rx Instructions .ROUTE .MEDSUPPLY Qty: 240 6RF Rx Instructions: Disposable Diaper-PullUps. size large 8x daily As directed, 30 day supply amlodipine 5 mg tablet 5 mg PO DAILY 30 Days Qty: 30 1RF Xarelto 20 mg tablet 20 mg PO DAILY@1700 Rx Instructions: must administer with evening meal acetaminophen 325 mg Tablet 650 mg PO Q6H PRN (Reason: elevated temp/pain) magnesium hydroxide [Milk of Magnesia] 400 mg/5 mL Suspension 30 ml PO DAILY PRN (Reason: Constipation) bisacodyl 10 mg Suppository 10 mg NC DAILY PRN (Reason: constipation) Rx Instructions: use if mom not effective Fleet Enema 19-7 gram/118 mL Enema 118 ml NC DAILY PRN (Reason: Constipation) Rx Instructions: use if dulcolax suppository not effective multivitamin Tablet 1 tab PO DAILY levetiracetam 100 mg/mL solution 1,000 mg PO DAILY@0800 Discharge Orders: Discharge Order (Routine); Ordered 12/12/22 Ordered By: Moe Sherman Diet: Advance to usual diet Activity on Discharge: As tolerated Stand Alone Forms: Patient Portal Discharge page Care Plan Goals: recovery from covid Health Concerns: covid, hypoxia Plan of Treatment: take dexamethasone as directed and follow up with your doctor in a week, follow covid isolation guideline for at least 5 more days Assessment: as above
[2022-12-12] MEDS: amLODIPine Besylate 5 MG TABLET PO (08:12)
[2022-12-12] MEDS: Atorvastatin Calcium 40 MG TABLET PO (08:12)
[2022-12-12] MEDS: Aspirin Enteric Coated 81 MG TABLET.DR PO (08:12)
[2022-12-12] MEDS: Multivitamin TABLET 1 TAB PO (08:12)
[2022-12-12] MEDS: dexAMETHasone sod phosphate 4 MG/ML VIAL 6 MG IVPUSH (08:13)
[2022-12-12] MEDS: levETIRAcetam Oral Soln 500 MG/5 ML 1000 MG PO (08:44)
--- NOTE | 2022-12-12 09:18 | MHC.CM.PN ---
Met with patient and in regards to discharge planning. Patient and 's primary language is Slovenian. Both are able to understand Vietnamese and are declining an glass blowing instructor at this time. Patient was d/c'd from [facility] to [facility] on 12/07/22. Patient was admitted 12/11/2022 d/t testing positive for Covid on 12/09. Patient and do not want to return to [facility]. Both want patient to return home. will transport patient home. [facility] made aware that patient will not return. Patient is active with [facility]. T/W spoke with Sagrario mahmood [facility]. Sagrario was asked to notify patient's housekeeper caregiver of d/c home. Continue to monitor for d/c needs.
== END 2022-12-12 09:34 | disposition home or self-care (01) | DRG 177 ==
LOC: HO.ED 22:50 → HO.EDOVER 12-11 00:07 → HO.IMC 12-12 07:56 → HO.EDOVER 12-12 08:03
PROVIDERS: Admitting Provider Student in an Organized Health Care Education/Training Program; Emergency Provider Emergency Medicine Emergency Medical Services; PCP Nurse Practitioner Family; Visit Provider Internal Medicine
DX: U07.1 COVID-19 (principal); J96.01 Acute respiratory failure with hypoxia; I10 Essential (primary) hypertension; G40.909 Epilepsy, unspecified, not intractable, without status epilepticus; E78.2 Mixed hyperlipidemia; M43.6 Torticollis; Z86.718 Personal history of other venous thrombosis and embolism; Z85.841 Personal history of malignant neoplasm of brain; Z79.01 Long term (current) use of anticoagulants; Z79.899 Other long term (current) drug therapy
CPT/HCPCS: 36415; 71045; 80048; 80076; 81001; 81003; 83605; 85025; 87040; 87502; 87635; 99285; J1100

== ENCOUNTER → 2022-12-11 00:03 | Outpatient (BNV) | payer OTHER, SELFPAY | PROVIDERS: Admitting Provider Student in an Organized Health Care Education/Training Program; Emergency Provider Emergency Medicine Emergency Medical Services; PCP Nurse Practitioner Family; Visit Provider Student in an Organized Health Care Education/Training Program | DX: U07.1 COVID-19 (principal); J96.01 Acute respiratory failure with hypoxia | CPT/HCPCS: 99222; 99239; 99499 ==

== ENCOUNTER 2022-12-23 15:07 | Outpatient (AMB) | payer OTHER, SELFPAY ==
--- NOTE | 2022-12-23 15:13 | A.OFFPC_ITS ---
Vital Signs 12/23/22 15:14 Height 5 ft 6.5 in Weight 167 lb 8 oz BMI 26.6 BP 134/76 Blood Pressure Location Lt brachial Position Sitting Respiration 13 Pulse 95 Pulse Source Pulse Oximeter Temp 97.1 F Temp Source Temporal Artery Scan Pulse Oximetry (%) 95 Oxygen Delivery Method Room Air Intake Visit Reasons: 12/12/22 (Stroke/ Covid) [facility] Content Producer Required: Yes Content Producer Name: Jessie (daughter) Accompanied by: Daughter Allergies apple [Apple] Allergy (Severe, Verified 12/23/22 15:38) THROAT SWELLING pollen extracts [POLLEN] Allergy (Intermediate, Verified 12/23/22 15:38) SNEEZING COUGHING ALOT kiwi [Kiwi (Actinidia Chinensis)] Adverse Reaction (Intermediate, Verified 12/23/22 15:38) VOMITING avocado [Avocado] Adverse Reaction (Mild, Verified 12/23/22 15:38) VOMITING Medication List - Last Reconciled 12/23/22 by Neto Aguirre CNP acetaminophen 650 mg PO Q6H PRN amlodipine 5 mg PO DAILY 30 days aspirin 81 mg PO DAILY atorvastatin 40 mg PO DAILY bisacodyl 10 mg [place] DAILY PRN dexamethasone 6 mg PO DAILY levetiracetam 1,000 mg PO DAILY@0800 magnesium hydroxide (Milk of Magnesia) 30 mL PO DAILY PRN miscellaneous medical supply Disposable Diaper-PullUps. size large 8x daily As directed, 30 day supply multivitamin 1 tab PO DAILY rivaroxaban (Xarelto) 20 mg PO DAILY@1700 sodium phosphates 19-7 gram/118 mL (Fleet Enema) 118 mL [place] DAILY PRN Tobacco use date assessed: 03/30/22 Fall risk assessment: 1 Fall in past year Last assessed Fall Risk: 12/23/22 Dental Screening Dental Screen Date: 12/23/22 Did you have a dental visit in the last 12 months?: Yes Did you have a dental problem in the last 6 months where you did not have access to dental care?: No Was dental information given to patient?: Patient has dentist HPI HPI Comments History of Present Illness Details 67-year-old female, accompanied by her luke [email or web address], presents for a follow- up visit. On 12/03/2022, she was evaluated and treated for AMS at [facility]. On 12/10/2022, she was evaluated treated for COVID-19 and stroke [place] [facility] MRI revealed subacute infarct. Otherwise, labs an other imaging where unremarkable. Patient offers no complaints and denies acute symptoms at this time. According to his daughter, the patient health is currently at baseline. She has been receiving home PT and OT. [facility] Medical History Metabolic alkalosis with respiratory acidosis Encounter for palliative care Sebaceous cyst of axilla Essential hypertension PVC (premature ventricular contraction) PAC (premature atrial contraction) Torticollis, acquired UTI (urinary tract infection), bacterial Bladder incontinence Unspecified urinary incontinence Abscess Symptomatic PVCs Physical exam, annual Stroke Insomnia Closed fracture of fibula with routine healing Fracture of distal end of fibula Right ankle pain Seizure HTN (hypertension) Brain cancer DVT (deep venous thrombosis) Surgical History Hx of section Hx of tubal ligation H/O craniotomy Family History Mother Diabetes Father Heart disease Family/Other Breast cancer Brain cancer Diabetes Social History Household Members: Spouse Housing: House Housing Other:: Lives with Spouse Do you presently have visiting nurse or other home services: Yes ([employer]) Unable to assess alcohol history related to: Unable to respond Alcohol intake: never Patient Tobacco Use Status: Never used Tobacco e-Cigarette/Vaping Use: Never Used Second Hand Smoke Exposure: No Advance Directives Date on File: 02/12/20 service: No Current occupational status: retired and disabled Cognitive needs: Yes Hearing needs: No Vision needs: No Female Reproductive History Menstrual Age of Menarche: 9 Questionnaire Thrive Questionnaire Date Thrive assessed: 12/12/22 Review of Systems Const Details: Const Denies chills, Denies fatigue, Denies fever(s), Denies headache(s) and Denies weakness ENT Denies dizziness and Denies headache(s) Card Denies chest pain, Denies lightheadedness, Denies dyspnea and Denies other (Palpitations) Resp Denies cough, Denies dyspnea, Denies wheezing and Denies other ( shortness of breath) GI Denies abdominal pain, Denies melena, Denies hematochezia, Denies change in bowel habits, Denies dyspepsia and Denies nausea Denies hematuria and Denies dysuria Musc Denies abnormal gait, Denies myalgias, Denies arthralgias, Denies numbness and Denies tingling Skin/Breast Denies rash, Denies unusual bruising and Denies wounds Neuro Denies abnormal gait, Denies dizziness, Denies headache(s), Denies memory loss, Denies numbness, Denies Sensory deficit (Neuro), Denies tingling and Denies weakness Psych Denies anxiety, Denies depression, Denies memory loss Endo Denies cold intolerance, Denies fatigue, Denies heat intolerance, Denies polydipsia and Denies polyuria Aller/Immun Denies wheezing Physical exam (Primary Care) Vital Signs: Last Vital Signs Temp 97.1 F 12/23/22 15:14 Pulse 95 12/23/22 15:14 Resp 13 12/23/22 15:14 BP 134/76 12/23/22 15:14 Pulse Ox 95 12/23/22 15:14 Oxygen Delivery Method Room Air 12/23/22 15:14 BMI result Body Mass Index 26.6 Tobacco/Smoking Status: Tobacco use Status Tobacco use date assessed 03/30/22 12/23/22 15:24 Patient Tobacco Use Status Never used Tobacco 12/23/22 15:24 e-Cigarette/Vaping Use Never Used 12/23/22 15:24 Thrive Assessment: Date of Thrive Assessment Date Thrive assessed 12/12/22 12/23/22 15:24 Const Other: General: no acute distress and well developed Nutritional Appearance: well nourished Orientation/consciousness: patient oriented x3 HENMT Head: Yes normocephalic and Yes atraumatic Eyes General: appearance normal, both eyes and all related structures Pupils: Equal, round and reactive pupils present EOM: EOMs intact bilaterally Resp Effort & Inspection: normal respiratory effort Auscultation: clear to auscultation bilaterally Cardio Rate: regular rate Rhythm: regular rhythm Heart sounds: S1 normal heart sound present, S2 normal heart sound present, no gallops, no murmurs and no rubs GI Palpation (GI): No Abdominal aortic bruit present, Soft to palpation, nontender, No hepatosplenomegaly present and No Rebound tenderness present Auscultation: normal bowel sounds General: Yes no CVA tenderness Back/Spine/Pelvis Back: no CVA tenderness Cervical Spine: cervical ROM normal and No Cervical spine tenderness Thoracic/Lumbar Spine: thoraco-lumbar ROM normal, No pain with thoraco-lumbar ROM, No thoracic spinal tenderness and No lumbar spinal tenderness Extrem General: Yes normal to inspection, No edema and No calf tenderness Skin General: warm and dry. Normal skin color. Normal skin turgor Neuro General: patient oriented x3, gait normal and no focal neuro deficit Cranial nerves: Yes Equal, round and reactive pupils present Cognition (Neuro): normal cognition Gait exam (Neuro): Normal gait present Sensory Exam: No Sensory deficit (Neuro) Psych Appearance: grossly normal Affect: normal affect Attitude: cooperative Thought process: Normal thought process present Assessment and Plan Assessment & Plan (1) Hospital discharge follow-up: Code(s): Z09 - Encounter for follow-up examination after completed treatment for conditions other than malignant neoplasm Plan: Normal baseline physical exam Vital signs stable Continue with current treatment regimen Continue with home PT and OT Advised to schedule a physical exam in 1-2 months Return sooner with symptoms or concerns Verbalized understanding and agreed with treatment plan. Coding Level of Care Code TCM Mod MDM <= 14 Days Diagnoses Hospital discharge follow-up Z09
[2022-12-23 15:14] VITALS: BP 134/76; PULSE 95; RESP 13; TEMP 36.2; O2SAT 95; BMI 26.6
== END 2022-12-23 16:05 | disposition home or self-care (01) ==
PROVIDERS: PCP Nurse Practitioner Family; Visit Provider Nurse Practitioner Family
DX: U07.1 COVID-19 (principal); I63.9 Cerebral infarction, unspecified; Z09 Encounter for follow-up examination after completed treatment for conditions other than malignant neoplasm
CPT/HCPCS: 99214

== ENCOUNTER 2023-02-28 10:40 | Outpatient (AMB) | payer OTHER, SELFPAY ==
[2023-02-28 10:41] VITALS: BP 124/68; PULSE 83; RESP 13; TEMP 36.2; O2SAT 99; BMI 25.3
--- NOTE | 2023-02-28 10:41 | MHC.PC.OV ---
Vital Signs 02/28/23 10:41 Height 5 ft 6.5 in Weight 159 lb 4 oz BMI 25.3 BP 124/68 Blood Pressure Location Rt brachial Position Sitting Respiration 13 Pulse 83 Pulse Source Pulse Oximeter Temp 97.1 F Temp Source Temporal Artery Scan Pulse Oximetry (%) 99 Oxygen Delivery Method Room Air Intake Visit Reasons: cpe Intake Note: Patient has been having frequent UTI's and is wondering if there is a treatment plan to help with this issue. Patient would like a referral to go see a dentist. Curriculum Writer Required: Yes Curriculum Writer Name: Daughters Accompanied by: Daughter Allergies apple [Apple] Allergy (Severe, Verified 02/28/23 11:02) THROAT SWELLING pollen extracts [POLLEN] Allergy (Intermediate, Verified 02/28/23 11:02) SNEEZING COUGHING ALOT kiwi [Kiwi (Actinidia Chinensis)] Adverse Reaction (Intermediate, Verified 02/28/23 11:02) VOMITING avocado [Avocado] Adverse Reaction (Mild, Verified 02/28/23 11:02) VOMITING Medication List - Last Reconciled 02/28/23 by Neto Aguirre CNP acetaminophen 650 mg PO Q6H PRN amlodipine 5 mg PO DAILY 30 days aspirin 81 mg PO DAILY atorvastatin 40 mg PO DAILY bisacodyl [address] DAILY PRN dexamethasone 6 mg PO DAILY levetiracetam 1,000 mg PO DAILY@0800 magnesium hydroxide (Milk of Magnesia) 30 mL PO DAILY PRN miscellaneous medical supply Disposable Diaper-PullUps. size large 8x daily As directed, 30 day supply multivitamin 1 tab PO DAILY rivaroxaban (Xarelto) 20 mg PO DAILY@1700 sodium phosphates 19-7 gram/118 mL (Fleet Enema) [address] DAILY PRN Tobacco use date assessed: 02/28/23 Fall risk assessment: 1 Fall in past year Last assessed Fall Risk: 02/28/23 Dental Screening Dental Screen Date: 02/28/23 Did you have a dental visit in the last 12 months?: No Did you have a dental problem in the last 6 months where you did not have access to dental care?: No Was dental information given to patient?: Yes HPI HPI Comments History of Present Illness Details 67-year-old female, accompanied by her daughter and niece, presents for an extended physical exam She has h/o torticollis, HTN, HLD, TERI on CPAP, respiratory failure, PAC, PVC, CVA, seizure, brain tumor s/p chemo and radiation, frequent vaginal candidiasis and UTI She admits to taking her medications as prescribed without adverse reactions She had blood work done 3 months ago She reports burning with urination with urination since yesterday. No blood, pain, or discharge with urination She notes that she has a shy bladder and unable to produce urine at this time Last mammogram was 4 years ago: normal. She notes that [facility] was unable to perform mammogram last year d/t torticollis making the procedure impossible Last colonoscopy was more than 10 years ago: normal Last DEXA scan: never had one Last pap smear test was 3.5 years ago: normal She is up-to-date on COVID and flu vaccines She is unsure of being vaccinated for shingles She has never received PNA vaccines She is followed by [facility] neurology. Her daughter requests a new neurologist Her daughter provided most of her medical history [facility] Medical History (Updated 02/28/23 @ 12:49 by Neto Aguirre CNP) Seizure Brain cancer Metabolic alkalosis with respiratory acidosis Encounter for palliative care Sebaceous cyst of axilla Essential hypertension PVC (premature ventricular contraction) PAC (premature atrial contraction) Torticollis, acquired UTI (urinary tract infection), bacterial Bladder incontinence Unspecified urinary incontinence Abscess Symptomatic PVCs Physical exam, annual Stroke Insomnia Closed fracture of fibula with routine healing Fracture of distal end of fibula Right ankle pain HTN (hypertension) DVT (deep venous thrombosis) Surgical History (Updated 02/28/23 @ 12:49 by Neto Aguirre CNP) Hx of section Hx of tubal ligation H/O craniotomy Family History Mother Diabetes Father Heart disease Family/Other Breast cancer Brain cancer Diabetes Social History Household Members: Spouse Housing: House Housing Other:: Lives with Spouse Do you presently have visiting nurse or other home services: Yes ([employer] [facility]) Unable to assess alcohol history related to: Unable to respond Alcohol intake: never Patient Tobacco Use Status: Never used Tobacco e-Cigarette/Vaping Use: Never Used Second Hand Smoke Exposure: No Advance Directives Date on File: 02/12/20 service: No Current occupational status: retired and disabled Cognitive needs: Yes Hearing needs: No Vision needs: Yes Female Reproductive History Menstrual Age of Menarche: 9 Questionnaire PHQ-9 Over the last 2 weeks, how often have you been bothered by any of the following problems? 1. Little interest or pleasure in doing things: not at all 2. Feeling down, depressed, or hopeless: not at all 3. Trouble falling or staying asleep, or sleeping too much: nearly every day 4. Feeling tired or having little energy: more than half the days 5. Poor appetite or overeating: several days 6. Feeling bad about yourself - or that you are a failure or have let yourself or your family down: not at all 7. Trouble concentrating on things, such as reading the newspaper or watching television: not at all 8. Moving or speaking so slowly that other people could have noticed. Or the opposite - being so fidgety or restless that you have been moving around a lot more than usual: not at all 9. Thoughts that you would be better off or of hurting yourself in some way: not at all Total score: 6 Depression Screening Interpretation: Positive Depression Screening Done: Yes 20080 - PHQ-9 Billing: Yes Source: Developed by Drs. Horace Pineda, Daya Durbin, Romero Cat and colleagues, with an educational loren from [employer]. Thrive Questionnaire Date Thrive assessed: 02/28/23 I am a: Patient What is your living situation today?: I have a steady place to live Within the past 12 months, did the food you bought not last and you didn't have the money to get more?: Sometimes True Within the past 12 months, did you worry whether your food would run out before you got money to buy more?: Sometimes True Do you have trouble paying for medicines?: No Do you have trouble getting transportation to medical appointments?: No Do you have trouble paying your heating and electricity bill?: No Do you have trouble taking care of your child, family member or friend?: No Do you have trouble with day-to-day activities such as bathing, preparing meals, shopping, managing finances, etc.?: No Are you currently unemployed and looking for a job?: No Are you interested in more education?: No Please select the resources that you would like help with: None Currently or been in a relationship where the following occur: no concerns reported AUDIT C Alcohol Use Questionnaire (AUDIT-C) 1. How often do you have a drink containing alcohol?: Never 3. How often do you have six or more drinks on one occasion?: Never Total Score: 0 MADAY-7 AMB Questionnaire MADAY-7 Date MADAY - 7 assessed: 02/28/23 Feeling nervous, anxious, or on edge: 0 = Not at all Not being able to stop or control worryin = Not at all Worrying too much about different things: 0 = Not at all Trouble relaxin = Not at all Being so restless that it is hard to sit still: 0 = Not at all Becoming easily annoyed or irritable: 0 = Not at all Feeling afraid as if something awful might happen: 0 = Not at all Total MADAY-7 score (0-4 normal; 5-9 mild; 10-14 moderate; 15-21 severe): 0 Source: Developed by Drs. Horace Pineda, Daya Durbin, Romero Cat and colleagues, with an educational loren from [employer]. MADAY-7 Assessment Billing MADAY-7 Assessment Tool: MADAY-7 Assessment 18188 Review of Systems Const Details: Denies chills, Denies fatigue, Denies fever(s), Denies headache(s) and Denies weakness HEENT Denies change in vision, Denies dizziness, Denies headache(s), Denies hearing loss, Denies nasal congestion, Denies sinus pain, Denies sinus pressure and Denies sore throat Card Denies chest pain, Denies lightheadedness, Denies dyspnea and Denies other (palpitations) Resp Denies cough, Denies dyspnea and Denies wheezing GI Denies abdominal pain, Denies melena, Denies hematochezia, Denies change in bowel habits, Denies dyspepsia and Denies nausea Reports dysuria, and Denies hematuria Musc Reports abnormal gait, Denies myalgias, Denies arthralgias, Denies numbness and Denies tingling Skin/Breast Denies rash, Denies unusual bruising and Denies wounds Neuro Reports abnormal gait, Denies dizziness, Denies headache(s), Denies memory loss, Denies numbness, Denies Sensory deficit (Neuro), Denies tingling and Denies weakness Psych Denies anxiety, Denies depression and Denies memory loss Endo Denies cold intolerance, Denies fatigue, Denies heat intolerance, Denies polydipsia and Denies polyuria Franky/Lymph Denies easy bleeding and Denies easy bruising Aller/Immun Denies wheezing Physical exam (Primary Care) Vital Signs: Last Vital Signs Temp 97.1 F 02/28/23 10:41 Pulse 83 02/28/23 10:41 Resp 13 02/28/23 10:41 BP 124/68 02/28/23 10:41 Pulse Ox 99 02/28/23 10:41 Oxygen Delivery Method Room Air 02/28/23 10:41 BMI result Body Mass Index 25.3 Tobacco/Smoking Status: Tobacco use Status Tobacco use date assessed 02/28/23 02/28/23 10:59 Patient Tobacco Use Status Never used Tobacco 02/28/23 10:59 e-Cigarette/Vaping Use Never Used 02/28/23 10:59 PHQ-9: PHQ-9 Score PHQ-9: Total score 6 02/28/23 11:23 Depression Screening Interpretation: Positive Thrive Assessment: Date of Thrive Assessment Date Thrive assessed 02/28/23 02/28/23 10:59 Currently or been in a relationship where the following occur: no concerns reported Const Other: General: no acute distress, well developed, alert and awake Nutritional Appearance: well nourished Orientation/consciousness: patient oriented x3 HENMT Head: Yes normocephalic and Yes atraumatic Ears: hearing grossly normal bilaterally and TM's normal bilaterally General nose exam: Normal external nose present and Normal nares present Mouth: Normal oral and palatal mucosa present and moist mucous membranes Teeth and gingiva: dentition normal Throat: Yes oropharynx normal Eyes Pupils: Equal, round and reactive pupils present and Pupil accommodation reflex normal EOM: EOMs intact bilaterally Neck Neck: Yes normal visual inspection, Yes no lymphadenopathy and Yes trachea midline Thyroid: Thyroid normal Carotids: no bruits Lymphatic: no lymphadenopathy noted Torticollis with significant stiffness of the right side of her neck Chest Chest palpation & inspection: normal inspection of the chest Resp Effort & Inspection: normal respiratory effort Auscultation: clear to auscultation bilaterally Cardio Rate: regular rate Rhythm: regular rhythm Heart sounds: S1 normal heart sound present, S2 normal heart sound present, no gallops, no murmurs and no rubs Bruits: no abdominal aortic bruits and no carotid bruits GI Palpation (GI): No Abdominal aortic bruit present, Soft to palpation, nontender, No hepatosplenomegaly present and No Rebound tenderness present Auscultation: normal bowel sounds General: Yes no CVA tenderness Back/Spine/Pelvis Back: no CVA tenderness Cervical Spine: cervical ROM abnormal and No Cervical spine tenderness Thoracic/Lumbar Spine: thoraco-lumbar ROM normal, No pain with thoraco-lumbar ROM, No thoracic spinal tenderness and No lumbar spinal tenderness Skin General: warm and dry. Normal skin color. Normal skin turgor Lesions: no lesions Rashes: no rashes Trauma: no lacerations or abrasions Wounds: no wounds Nails: normal Neuro General: patient oriented x3, unsteady gait, and CN's II-X intact bilaterally, abnormal CN Cranial nerves: Yes Equal, round and reactive pupils present Cognition (Neuro): normal cognition Gait exam (Neuro): Unsteady gait present Motor exam (neuro): 3/5 motor strength present throughout Sensory Exam: No Sensory deficit (Neuro) Deep tendon reflexes (DTR's): Test not performed d/t BLE on the floor Extrem General: Yes normal to inspection, No edema and No calf tenderness Psych Appearance: grossly normal Affect: normal affect Attitude: cooperative Thought process: Normal thought process present Assessment and Plan Assessment & Plan (1) Encounter for routine adult physical exam with abnormal findings: Code(s): Z00.01 - Encounter for general adult medical examination with abnormal findings Plan: Significant physical restrictions such as torticollis and unsteady gait noted Continue current treatment regimen Healthy diet encouraged Continue to use wheelchair for long distances Referred to [facility] Neurology Follow-up in 4 months or return sooner with symptoms or concerns Verbalized understanding and agreed with treatment plan (2) Hyperlipidemia: Code(s): E78.5 - Hyperlipidemia, unspecified Plan: Recent lipid panel levels are normal Continue with current treatment regimen Advised to limit foods high in saturated fat and avoid foods high trans fat Will recheck lipid panel in 4 months. Advised to fast for 10-12 hours, may drink water only, and get blood work done before her next visit Follow-up in 4 months Verbalized understanding and agreed with treatment plan (3) Frequent UTI: Code(s): N39.0 - Urinary tract infection, site not specified Plan: Burning with urination with urination since yesterday Unable to produce urine at this time due to shy bladder Macrobid and Pyridium ordered. Take as prescribed Adequate hydration encouraged Referred to Urology She will obtain urine sample at home and bring for urinalysis/culture Return with worsening or new symptoms Verbalized understanding and agreed with treatment plan (4) HTN (hypertension): Code(s): I10 - Essential (primary) hypertension Qualifiers: Hypertension type: essential hypertension Qualified Code(s): I10 - Essential (primary) hypertension Plan: Blood pressure is controlled, 124/68 Amlodipine as prescribed Low-sodium diet encouraged Follow-up in 4 months Verbalized understanding and agreed with treatment plan (5) Colon cancer screening: Code(s): Z12.11 - Encounter for screening for malignant neoplasm of colon Plan: Last colonoscopy was more than 10 years ago: normal Referred to Gastroenterology for a colonoscopy (6) Breast cancer screening by mammogram: Code(s): Z12.31 - Encounter for screening mammogram for malignant neoplasm of breast Plan: She notes that [facility] was unable to perform mammogram last year d/t torticollis making the procedure impossible I spoke with Dr. Puente from radiology support and notes she will forward the patient's demographics to [facility] to determine how mammogram can be done. She states that if mammogram impossible, mammogram of the left breast or ultrasound of both breasts can be done Screening mammogram of both breasts ordered I spoke with the nurse who will call to mammogram department to explore further options if mammogram is impossible to get done due to the patient's physical condition (7) Age-related osteoporosis without current pathological fracture: Code(s): M81.0 - Age-related osteoporosis without current pathological fracture Plan: She has never had bone density scan DEXA scan ordered (8) Vaccine counseling: Code(s): Z71.85 - Encounter for immunization safety counseling Plan: She has not been vaccinated for pneumonia and unsure of shingles vaccination Instructed on the importance of vaccinations and encouraged to get vaccinated for pneumonia and shingles Verbalized understanding and agreed with the plan Orders: Orders Lipid Panel 4 Months E78.5 - Hyperlipidemia, unspecified XR DEXA axial skeleton Today M81.0 - Age-related osteoporosis without current pathological fracture UA CC w/rflx Micro + Cult Today N39.0 - Urinary tract infection, site not specified MM screening mammo BI Today Z12.31 - Encounter for screening mammogram for malignant neoplasm of breast Referrals Urology Referral N39.0 - Urinary tract infection, site not specified Gastroenterology Referral Z12.11 - Encounter for screening for malignant neoplasm of colon Neurology Referral C71.9 - Malignant neoplasm of brain, unspecified, M43.6 - Torticollis, R56.9 - Unspecified convulsions, Z98.890 - Other specified postprocedural states Medications: New phenazopyridine (Pyridium) 100 mg PO TID 2 days PRN 6 tabs 0RF pain nitrofurantoin monohyd/m-cryst 100 mg (Macrobid) must administer with a meal/food 100 mg PO Q12H 5 days 10 caps 0RF Coding Level of Care Code Est Pt Prev Care >65y(11370) Diagnoses Encounter for routine adult physical exam with abnormal findings Z00.01 Hyperlipidemia E78.5 Frequent UTI N39.0 Essential hypertension I10 Hypertension type: essential hypertension Colon cancer screening Z12.11 Breast cancer screening by mammogram Z12.31 Age-related osteoporosis without current pathological fracture M81.0 Vaccine counseling Z71.85 Additional Codes MADAY-7 Assessment Billing - MADAY-7 Assessment Tool: MADAY-7 Assessment 20842 ([id number])
== END 2023-02-28 12:09 | disposition home or self-care (01) ==
PROVIDERS: PCP Nurse Practitioner Family; Visit Provider Nurse Practitioner Family
DX: Z00.01 Encounter for general adult medical examination with abnormal findings (principal); E78.5 Hyperlipidemia, unspecified; N39.0 Urinary tract infection, site not specified; I10 Essential (primary) hypertension; Z12.11 Encounter for screening for malignant neoplasm of colon; Z12.31 Encounter for screening mammogram for malignant neoplasm of breast; M81.0 Age-related osteoporosis without current pathological fracture; Z71.85 Encounter for immunization safety counseling
CPT/HCPCS: 99213; 99397

== ENCOUNTER 2023-03-02 15:44 | Outpatient (REF) | payer OTHER, SELFPAY ==
[2023-03-02 15:59] LABS: Appearance Urine Turbid; Color Urine Yellow; Glucose Urine UA Negative (Negative); Leukocyte Esterase Urine Large (3+) (Negative); Nitrite Urine Negative (Negative); PH >= 9.0 (5.0-9.0); UMIC TRIGGER UACC YES; Urine Blood Negative (Negative); Urine Ketones Negative (Negative); Urine Protein Trace mg/dL (Neg-Trace)
[2023-03-02 16:04] LABS: Bacteria Urine 4+ (None Seen); Hyaline Casts Urine 0-2 /LPF (0-2); RBC Urine 0-2 /HPF (0-2); Squamous Epithelial Cell Urine 0-2 /HPF (0-2); UACC Culture Trigger YES
== END 2023-03-02 15:45 | disposition home or self-care (01) ==
LOC: HO.LNP 15:44
PROVIDERS: Visit Provider Nurse Practitioner Family
DX: N39.0 Urinary tract infection, site not specified (principal)
CPT/HCPCS: 81001; 87086; 87088; 87186

== ENCOUNTER 2023-03-22 11:16 | Outpatient (REF) | payer OTHER, SELFPAY ==
--- NOTE | ~2023-03-22 | MM_ITS ---
EXAMINATION: BONE DENSITOMETRY CLINICAL INDICATION: Age-related osteoporosis without current pathological fracture. COMPARISON: Baseline BD dated 09/01/2008. TECHNIQUE: Using a [employer] DXA System (software version: 13.1) manufactured by [employer], dual-energy x-ray absorptiometry was performed of the lumbar spine and left hip. The images are of good technical quality. Summary results are attached. FINDINGS: AP SPINE L1-L4: Current: BMD 0.959 g/cm2, Z-score -0.7, T-score -1.8, osteopenia, 17.9% decrease from baseline (<5% change is not significant). Baseline: BMD 1.168 g/cm2. LEFT FEMUR, NECK: Current: BMD 0.945 g/cm2, Z-score 0.7, T-score -0.7, normal. Baseline: BMD 1.068 g/cm2. LEFT FEMUR, TOTAL: Current: BMD 0.899 g/cm2, Z-score 0.2, T-score -0.9, normal, 23.4% decrease from baseline (<5% change is not significant). Baseline: BMD 1.174 g/cm2. IDENTIFIED RISK FACTORS: History of adult fracture. Menopause. HISTORY OF FRACTURE: Other. MEDICATIONS: Calcium supplement and/or multivitamin. Vitamin D. MM/XR DEXA axial skeleton IMPRESSION: 1. DIAGNOSIS: Osteopenia based on the lowest T-score value of -1.8 in the lumbar spine applying World Health Organization criteria. 2. 10-YEAR FRACTURE RISK PREDICTION, FRAX: Major osteoporotic fracture (clinical spine, forearm, hip or shoulder) 7.2%. Hip fracture 0.5%. 3. Treatment Recommendations: NOF guidelines recommend consideration for treatment in postmenopausal women and men age 50 and older presenting with the following: -A hip or vertebral (clinical or morphometric) fracture. -T-score less than or equal to -2.5 at the femoral neck or spine after appropriate evaluation to exclude secondary causes. -Low bone mass at the hip or spine and a 10-year fracture probability by FRAX of greater than or equal to 3% for hip fracture or greater than or equal to 20% for major osteoporotic fracture based on the [place] adapted WHO algorithm. 4. Other Recommendations: All treatment decisions require clinical judgment and consideration of individual patient factors, including patient preferences, comorbidities, previous drug use, risk factors not captured in the FRAX model (e.g. frailty, falls, vitamin D deficiency, increased bone turnover, interval significant decline in bone density) and possible under or overestimation of fracture risk by FRAX. Additional medical evaluation for secondary cause of low bone mineral density may be appropriate. FUTURE SCAN RECOMMENDATION: People with diagnosed cases of osteoporosis or at high risk for fracture should have regular bone mineral density tests. For patients eligible for Medicare, routine testing is allowed once every 2 years. The testing frequency can be increased to one year for patients who have rapidly progressing disease, those who are receiving or discontinuing medical therapy to restore bone mass, or have additional risk factors.
== END 2023-03-22 11:17 | disposition home or self-care (01) ==
LOC: HO.MAMMO 11:16
PROVIDERS: PCP Hospitalist; Visit Provider Nurse Practitioner Family
DX: Z13.820 Encounter for screening for osteoporosis (principal); Z78.0 Asymptomatic menopausal state; M81.0 Age-related osteoporosis without current pathological fracture
CPT/HCPCS: 77080

== ENCOUNTER 2023-03-27 11:41 | Outpatient (AMB) | payer OTHER, SELFPAY ==
[2023-03-27 11:46] VITALS: BP 140/70; PULSE 80
--- NOTE | 2023-03-27 11:46 | MHC.OFFVIS ---
Intake Vital Signs 03/27/23 11:46 Height 5 ft 6.5 in BP 140/70 H Blood Pressure Location Lt brachial Position Sitting Pulse 80 Pulse Source Pulse Oximeter Intake Visit Reasons: Re-discuss colonoscopy screening Intake Note: Pt presents to the office today to re discuss colonoscopy screening. Pt states she is feeling well. Pt states she does struggle with constipation. She states she will have a bowel movement 1 or 2 times a week but denies any N/V. Allergies apple [Apple] Allergy (Severe, Verified 03/27/23 11:49) THROAT SWELLING pollen extracts [POLLEN] Allergy (Intermediate, Verified 03/27/23 11:49) SNEEZING COUGHING ALOT kiwi [Kiwi (Actinidia Chinensis)] Adverse Reaction (Intermediate, Verified 03/27/23 11:49) VOMITING avocado [Avocado] Adverse Reaction (Mild, Verified 03/27/23 11:49) VOMITING HPI Re-discuss colonoscopy screening HPI Details LAST VISIT 08/06/2020 Screen for colon cancer Plan 65-year-old female here today for pre colonoscopy screening. Patient denies any GI, cardiac, respiratory symptoms. Patient did fell last month most likely due to medication that is no longer prescribed, however patient was feeling dizzy at that time and she will get a cardiac consultation. We will wait for her to get cleared by the Cardiology and when to stop her Xarelto. Discussed at length the pre-procedure, prep, diet & medications as well as what to expect prior, during and after the procedure. Stressed the importance of good bowel prep. Recommended the use of Vaseline or Calmoseptine OTC & baby wipes with bowel movements to promote comfort. Patient verbalizes understanding and agrees to plan of care. She was given the opportunity to ask questions and all questions answered. We will see her after the procedure. ? Thank you for allowing me to participate in her care Medications New: bisacodyl (Dulcolax (bisacodyl)) take 2 tabs at noon the day before your colonoscopy 10 mg (2 x 5 mg) PO ONCE 1 day 2 tabs 0RF polyethylene glycol 3350 (Miralax) As directed by gastroenterology department at [facility] 238 grams PO ONCE 238 grams 0RF TODAY'S VISIT Patient is here today accompanied by her . Patient's daughter MATTHEW is also present during the visit via phone. Patient was sent to us for pre colonoscopy screening. Patient has been on Xarelto for 7 years or so. Patient was placed on it for history of DVT. Patient has extensive history that includes craniotomy, seizure disorder, history of stroke, history of respiratory failure with hypoxia. Patient reports constipation, takes medications on as needed basis. Patient denies any melena, hematochezia, unintentional weight loss or ribbon like stools. Patient is unable to hold her next straight and leaning towards the right side. Unable to sleep or lay down on the left side. Patient's daughter would prefer her have Cologuard versus colonoscopy due to her comorbidities PFSH Medical History Seizure Brain cancer Metabolic alkalosis with respiratory acidosis Encounter for palliative care Sebaceous cyst of axilla Essential hypertension PVC (premature ventricular contraction) PAC (premature atrial contraction) Torticollis, acquired UTI (urinary tract infection), bacterial Bladder incontinence Unspecified urinary incontinence Abscess Symptomatic PVCs Physical exam, annual Stroke Insomnia Closed fracture of fibula with routine healing Fracture of distal end of fibula Right ankle pain HTN (hypertension) DVT (deep venous thrombosis) Surgical History Hx of section Hx of tubal ligation H/O craniotomy Family History Mother Diabetes Father Heart disease Family/Other Breast cancer Brain cancer Diabetes Social History Household Members: Spouse Housing: House Housing Other:: Lives with Spouse Do you presently have visiting nurse or other home services: Yes ([employer]) Unable to assess alcohol history related to: Unable to respond Alcohol intake: never Patient Tobacco Use Status: Never used Tobacco e-Cigarette/Vaping Use: Never Used Second Hand Smoke Exposure: No Advance Directives Date on File: 12/23/20 service: No Current occupational status: retired and disabled Cognitive needs: Yes Hearing needs: No Vision needs: Yes Female Reproductive History Menstrual Age of Menarche: 9 Review of Systems Const Denies weight gain and Denies weight loss ENT Reports no additional complaints, Denies dysphagia and Denies odynophagia Card Reports no additional complaints Resp Reports no additional complaints GI Denies abdominal pain, Denies belching, Denies melena, Denies bloating, Denies hematochezia, Reports constipation, Denies dysphagia, Denies excessive flatus, Denies dyspepsia, Denies heartburn, Denies diarrhea, Denies loose stools, Denies nausea, Denies odynophagia and Denies vomiting Reports no additional complaints Musc Reports no additional complaints Neuro Reports no additional complaints Psych Reports no additional complaints Endo Reports no additional complaints Physical Exam Vital Signs: Last Vital Signs Pulse 80 03/27/23 11:46 BP 140/70 H 03/27/23 11:46 Const Other: Patient is in a wheelchair R sided torticollis General: healthy appearing, no acute distress and well developed Nutritional Appearance: well nourished Orientation/consciousness: patient oriented x3 Resp Effort & Inspection: normal respiratory effort, able to speak in complete sentences, no tracheal deviation and symmetric chest movement Auscultation: clear to auscultation bilaterally Cardio Rate: regular rate GI Inspection: Yes normal to inspection and No distended Palpation (GI): Soft to palpation, not firm, nontender and No hepatosplenomegaly present Auscultation: normal bowel sounds General: Yes no CVA tenderness Back/Spine/Pelvis Back: no CVA tenderness Skin General skin exam: elasticity normal, turgor normal and dry skin Neuro General: patient oriented x3 Psych Appearance: grossly normal Mental Status: mental status grossly normal Assessment & Plan Assessment & Plan (1) Colon cancer screening: Code(s): Z12.11 - Encounter for screening for malignant neoplasm of colon (2) Constipation: Code(s): K59.00 - Constipation, unspecified Qualifiers: Constipation type: slow transit constipation Qualified Code(s): K59.01 - Slow transit constipation Plan Per patient request and her family request we will send Cologuard. Multiple comorbidities like seizure history, sleep apnea with history of hypoxia. Patient is also unable to lay on the left side due to severe torticollis. Encouraged to take MiraLax daily. Patient was encouraged to increase fluid intake. I will see her in 4 months, sooner on as needed basis. Patient, her daughter and her are all agreeable to plan of care and verbalizes understanding of instructions. They were given the opportunity to ask questions and all questions answered. Thank you for allowing me to participate in her care Medications: New docusate sodium 100 mg PO BEDTIME 90 caps 3RF K59.00 - Constipation, unspecified Coding Level of Care Code Est Pt Level 3 (99654) Diagnoses Colon cancer screening Z12.11 Slow transit constipation K59.01 Constipation type: slow transit constipation Time Spent (min) 30 Comment 20 minutes spent with patient and additional 10 minutes spent reviewing her records
== END 2023-03-27 12:20 | disposition home or self-care (01) ==
PROVIDERS: PCP Nurse Practitioner Family; Visit Provider Nurse Practitioner Family
DX: K59.01 Slow transit constipation (principal); Z12.11 Encounter for screening for malignant neoplasm of colon
CPT/HCPCS: 99213

== ENCOUNTER → 2023-03-27 11:41 | Outpatient (BNVA) | payer OTHER, SELFPAY | PROVIDERS: PCP Nurse Practitioner Family; Visit Provider Nurse Practitioner Family | DX: K59.01 Slow transit constipation (principal) | CPT/HCPCS: 99212 ==

== ENCOUNTER 2023-04-20 11:24 | Outpatient (AMB) | payer OTHER, SELFPAY ==
--- NOTE | 2023-04-20 11:49 | MHC.OFFVIS ---
Intake Intake Visit Reasons: Urinary tract infection, site not specified Intake Note: New Patient presents for initial visit for urinary tract infection Urology Medications: none Blood Thinner: aspirin, xarelto Antibiotic Allergies: none Auto Radiator Specialist Required: Yes Auto Radiator Specialist Name: BOWEN YAN-KETURAHConor Accompanied by: Daughter Allergies apple [Apple] Allergy (Severe, Verified 04/23/23 12:56) THROAT SWELLING pollen extracts [POLLEN] Allergy (Intermediate, Verified 04/23/23 12:56) SNEEZING COUGHING ALOT kiwi [Kiwi (Actinidia Chinensis)] Adverse Reaction (Intermediate, Verified 04/23/23 12:56) VOMITING avocado [Avocado] Adverse Reaction (Mild, Verified 04/23/23 12:56) VOMITING Medication List - Last Reconciled 04/23/23 by ARMANI Mills acetaminophen 650 mg PO Q6H PRN amlodipine 5 mg PO DAILY 30 days aspirin 81 mg PO DAILY atorvastatin 40 mg PO DAILY bisacodyl 10 mg CA DAILY PRN docusate sodium 100 mg PO BEDTIME levetiracetam 1,000 mg (10 mL) PO DAILY@0800 30 days magnesium hydroxide (Milk of Magnesia) 30 mL PO DAILY PRN miscellaneous medical supply 1 transfer wheelchair and 1 walker with front wheels miscellaneous medical supply Disposable Diaper-PullUps. size large 8x daily As directed, 30 day supply multivitamin 1 tab PO DAILY rivaroxaban (Xarelto) 20 mg PO DAILY@1700 sodium phosphates 19-7 gram/118 mL (Fleet Enema) 118 mL CA DAILY PRN HPI HPI Comments History of Present Illness Details Juani is a very pleasant 67-year-old Moldovan-speaking female patient of was accompanied by her daughter at today's office visit. She has a past medical history of seizure, status post chemo and radiation for brain cancer, hypertension, torticollis, recurrent UTIs, urinary incontinence, stroke, insomnia, hypertension, and DVTs. She presents to the office today as a new patient for recurrent urinary tract infections. In discussion with the patient's daughter who provides much of today's history given patient's past medical history she reports having followed up with PCP and patient was noted to have approximately 6 urinary tract infections over the last year and recommendations were made for urology referral for further assessment evaluation. In discussion with the patient and her daughter today she does report patient has a history of constipation and baseline urinary status of incontinence however does perform scheduled toileting throughout the day. She reports patient does well with scheduled/ timed voiding. Discussed at length potential causes of recurrent urinary tract infections. Discussed obtaining retroperitoneal ultrasound for further assessment evaluation. Discussed at length treatment options for recurrent urinary tract infections. She currently denies any bothersome urinary issues or concerns. Unable to obtain urine for urinalysis however PVR 0 mL. She denies having any UTI like symptoms at this time. She otherwise offers no other issues or concerns at this time. [facility] Medical History Seizure Brain cancer Metabolic alkalosis with respiratory acidosis Encounter for palliative care Sebaceous cyst of axilla Essential hypertension PVC (premature ventricular contraction) PAC (premature atrial contraction) Torticollis, acquired UTI (urinary tract infection), bacterial Bladder incontinence Unspecified urinary incontinence Abscess Symptomatic PVCs Physical exam, annual Stroke Insomnia Closed fracture of fibula with routine healing Fracture of distal end of fibula Right ankle pain HTN (hypertension) DVT (deep venous thrombosis) Surgical History Hx of section Hx of tubal ligation H/O craniotomy Family History Mother Diabetes Father Heart disease Family/Other Breast cancer Brain cancer Diabetes Social History Household Members: Spouse Housing: House Housing Other:: Lives with Spouse Do you presently have visiting nurse or other home services: 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) Unable to assess alcohol history related to: Unable to respond Alcohol intake: never Patient Tobacco Use Status: Never used Tobacco e-Cigarette/Vaping Use: Never Used Second Hand Smoke Exposure: No Advance Directives Date on File: 02/12/20 service: No Current occupational status: retired and disabled Cognitive needs: Yes Hearing needs: No Vision needs: Yes Female Reproductive History Menstrual Age of Menarche: 9 Review of Systems Const Reports as per HPI Eyes Reports no additional complaints ENT Reports no additional complaints Card Reports as per HPI Resp Reports no additional complaints GI Reports as per HPI Reports as per HPI Musc Reports as per HPI Neuro Reports as per HPI Psych Reports as per HPI Endo Reports as per HPI Franky/Lymph Reports as per HPI Aller/Immun Reports no additional complaints Physical Exam Const Other: Patient with right-sided torticollis General: cooperative, healthy appearing, comfortable, no acute distress, well developed, alert and awake Orientation/consciousness: patient oriented x3 Limitations: wheelchair HEENT Head: Yes normal to inspection Ears: hearing grossly normal bilaterally Eyes General: appearance normal, both eyes and all related structures Neck Other: Right-sided torticollis Chest Chest palpation & inspection: normal inspection of the chest Resp Effort & Inspection: normal respiratory effort and able to speak in complete sentences Cardio Rate: regular rate GI Inspection: Yes normal to inspection General: Yes no CVA tenderness Back/Spine/Pelvis Back: no CVA tenderness Skin General skin exam: no rashes or lesions noted Neuro General: patient oriented x3 Extrem General: Yes normal to inspection Psych Appearance: grossly normal and well kempt Mental Status: mental status grossly normal Speech and movement: Normal speech and movement present and Clear speech present Affect: normal affect Attitude: cooperative Thought process: Normal thought process present Thought content: Normal thought content present Insight: Limited insight present (Psych) Judgement: Limited judgement present (Psych) Office Procedures Post Void Residual Post Residual Void Post Void Residual (PVR): 0 26839-Opde Void Residual by ultrasound Assessment & Plan Assessment & Plan (1) Frequent UTI: Code(s): N39.0 - Urinary tract infection, site not specified Plan Unable to perform urinalysis as patient unable to give urine sample however PVR 0 mL. Will obtain retroperitoneal ultrasound for further assessment evaluation. Discussed UTI prevention with D mannose supplement, vitamin-C, increasing fluid intake, behavioral therapy with timed voiding, perineal hygiene and postcoital voiding, and management of constipation with stool softeners and increased fiber intake. Discussed at length potential causes for recurrent urinary tract infections. Discussed trial of Estrace cream however patient and family would like to trial lifestyle modifications with increased activity and regulation of bowel movements. Discussed possible near future cystoscopy for further assessment evaluation. Continue with timed/scheduled voiding Follow-up in 2-3 months with imaging to be completed prior; or sooner with any issues, concerns, and or questions. Orders: Orders US retroperitoneal comp 04/20/23 N39.0 - Urinary tract infection, site not specified AMB Urinalysis Automated 04/20/23 Z13.9 - Encounter for screening, unspecified AMB Post Void Residual by ultrasound 04/20/23 R32 - Unspecified urinary incontinence Patient Instructions: The patient had an opportunity to ask questions regarding the treatment plan. All questions were answered. Physical exam, labs, and imaging were discussed and reviewed in detail. As well as risks, benefits, and discussion of treatment choices. No major barriers to understanding were identified. The patient expressed understanding and agreement with the above treatment plan. The patient was made aware they should contact our office by phone for worsening of their current condition, the appearance of new symptoms, or with any questions or concerns. Compliance is encouraged with any medications and follow up testing that is ordered. It is a privilege to be allowed the opportunity to participate in? your urological care.? Again, if you have any questions or concerns If you have any questions or concerns please do not hesitate to contact me. The office is [phone]. This note is constructed using voice recognition software. While every effort has been made to ensure accuracy planer chain offbearer errors may have been included. Yours sincerely, ARMANI Mills Coding Level of Care Code New Pt Level 4 (29243) Diagnoses Frequent UTI N39.0 CPT Codes Post Residual Void - PVR CPT Code: 54840-Rhxr Void Residual by ultrasound ([id number]) Time Spent (min) 35
== END 2023-04-20 12:41 | disposition home or self-care (01) ==
PROVIDERS: PCP Hospitalist; Visit Provider Nurse Practitioner Family
DX: N39.0 Urinary tract infection, site not specified (principal)
CPT/HCPCS: 99204

== ENCOUNTER → 2023-04-20 11:24 | Outpatient (BNVA) | payer OTHER, SELFPAY | PROVIDERS: PCP Hospitalist; Visit Provider Nurse Practitioner Family | DX: N39.0 Urinary tract infection, site not specified (principal) | CPT/HCPCS: 51798; 99202 ==

== ENCOUNTER 2023-06-26 09:51 | Outpatient (REF) | payer OTHER, SELFPAY ==
[2023-06-26 11:21] LABS: Cholesterol 124 mg/dL (<200); HDL Cholesterol 57 mg/dL (>40); LDL Cholesterol Calculated 62 mg/dL (<100); Triglycerides 27 mg/dL (<150)
== END 2023-06-26 09:52 | disposition home or self-care (01) ==
LOC: HO.LAB 09:51
PROVIDERS: PCP Nurse Practitioner Family; Visit Provider Nurse Practitioner Family
DX: E78.5 Hyperlipidemia, unspecified (principal)
CPT/HCPCS: 36415; 80061

== ENCOUNTER 2023-07-07 10:19 | Outpatient (REF) | payer OTHER, SELFPAY ==
--- NOTE | ~2023-07-07 | US_ITS ---
EXAMINATION: US RETROPERITONEAL COMPLETE (RENAL) CLINICAL INFORMATION: Urinary tract infection, site not specified. COMPARISON: CT abdomen and pelvis 12/20/2021. TECHNIQUE: Real-time imaging of the kidneys and bladder. FINDINGS: RIGHT KIDNEY: 9.5 x 5.2 x 5.1 cm (SAG x AP x TRV). The kidney is normal in size, contour, and echogenicity. Renal cortical thickness is normal. No calculi or focal parenchymal lesions. No hydronephrosis. LEFT KIDNEY: 9.2 x 6.3 x 5.3 cm (SAG x AP x TRV). The kidney is normal in size, contour, and echogenicity. Renal cortical thickness is normal. No calculi or focal parenchymal lesions. No hydronephrosis. BLADDER: Partially distended. Bilateral ureteral jets are not demonstrated. Prevoid bladder volume is 99.7 mL. Postvoid bladder volume is 9.6 mL. US/US retroperitoneal comp IMPRESSION: Limited evaluation of the bladder due to under distention. Otherwise unremarkable renal ultrasound.
== END 2023-07-07 10:20 | disposition home or self-care (01) ==
LOC: HO.US 10:19
PROVIDERS: PCP Nurse Practitioner Family; Visit Provider Nurse Practitioner Family
DX: N39.0 Urinary tract infection, site not specified (principal)
CPT/HCPCS: 76770

== ENCOUNTER 2023-07-10 16:30 | Outpatient (AMB) | payer OTHER, SELFPAY ==
[2023-07-10 16:42] VITALS: BP 116/68; PULSE 71; RESP 16; TEMP 36.8; O2SAT 97; BMI 26.0
--- NOTE | 2023-07-10 16:42 | MHC.PC.OV ---
Vital Signs 07/10/23 16:42 Height 5 ft 6.5 in Weight 163 lb 4 oz BMI 26.0 BP 116/68 Blood Pressure Location Lt brachial Position Sitting Respiration 16 Pulse 71 Pulse Source Pulse Oximeter Temp 98.3 F Temp Source Oral Pulse Oximetry (%) 97 Oxygen Delivery Method Room Air Intake Visit Reasons: 4 Months HTN / HLD Intake Note: Follow up. Discuss reducing amount of Keppra. Was taking 10 mg three times a day and daughter changed to twice daily. 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 Accompanied by: Daughter Allergies apple [Apple] Allergy (Severe, Verified 07/10/23 17:05) THROAT SWELLING pollen extracts [POLLEN] Allergy (Intermediate, Verified 07/10/23 17:05) SNEEZING COUGHING ALOT kiwi [Kiwi (Actinidia Chinensis)] Adverse Reaction (Intermediate, Verified 07/10/23 17:05) VOMITING avocado [Avocado] Adverse Reaction (Mild, Verified 07/10/23 17:05) VOMITING Medication List - Last Reconciled 07/10/23 by Neto Aguirre CNP acetaminophen 650 mg PO Q6H PRN amlodipine 5 mg PO DAILY 90 days aspirin 81 mg PO DAILY atorvastatin 40 mg PO DAILY docusate sodium 100 mg PO BEDTIME levetiracetam 1,000 mg PO BID magnesium hydroxide (Milk of Magnesia) 30 mL PO DAILY PRN miscellaneous medical supply 1 transfer wheelchair and 1 walker with front wheels miscellaneous medical supply Disposable Diaper-PullUps. size large 8x daily As directed, 30 day supply miscellaneous medical supply Recliner lift to help with standing multivitamin 1 tab PO DAILY rivaroxaban (Xarelto) 20 mg PO DAILY@1700 30 days Tobacco use date assessed: 07/10/23 Fall risk assessment: 2 + Falls in past year Last assessed Fall Risk: 07/10/23 Dental Screening Dental Screen Date: 07/10/23 Did you have a dental visit in the last 12 months?: No Did you have a dental problem in the last 6 months where you did not have access to dental care?: No Was dental information given to patient?: Patient has dentist HPI HPI Comments History of Present Illness Details 68-year-old female accompanied by her daughter, presents for hyperlipidemia and hypertension follow-up Her daughter notes that the patient has been taking Keppra 1000 mg twice daily for the past 2 years despite order indicating 1000 mg three times daily; otherwise, the patient has been taking her medications as prescribed without adverse reactions She offers no complaints and denies acute symptoms at this She has no longer been followed by Neurology. She was referred to [facility] Neurology per her daughter request. However, [facility] neurology recommended the patient sees her former neurologist in [place]. Her daughter notes that [facility] Medical History Seizure Brain cancer Metabolic alkalosis with respiratory acidosis Encounter for palliative care Sebaceous cyst of axilla Essential hypertension PVC (premature ventricular contraction) PAC (premature atrial contraction) Torticollis, acquired UTI (urinary tract infection), bacterial Bladder incontinence Unspecified urinary incontinence Abscess Symptomatic PVCs Physical exam, annual Stroke Insomnia Closed fracture of fibula with routine healing Fracture of distal end of fibula Right ankle pain HTN (hypertension) DVT (deep venous thrombosis) Surgical History Hx of section Hx of tubal ligation H/O craniotomy Family History Mother Diabetes Father Heart disease Family/Other Breast cancer Brain cancer Diabetes Social History Household Members: Spouse Housing: House Housing Other:: Lives with Spouse Do you presently have visiting nurse or other home services: Yes (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 Horace Pineda, Daya Durbin, Romero Cat and colleagues, with an educational loren from [employer]. Review of Systems Const Details: Const Denies chills, Denies fatigue, Denies fever(s), Denies headache(s) and Denies weakness ENT Denies dizziness and Denies headache(s) Card Denies chest pain, Denies lightheadedness, Denies dyspnea and Denies other (Palpitations) Resp Denies cough, Denies dyspnea, Denies wheezing and Denies other ( shortness of breath) GI Denies abdominal pain, Denies melena, Denies hematochezia, Denies change in bowel habits, Denies dyspepsia and Denies nausea Denies hematuria and Denies dysuria Musc Denies abnormal gait, Denies myalgias, Denies arthralgias, Denies numbness and Denies tingling Skin/Breast Denies rash, Denies unusual bruising and Denies wounds Neuro Reports baseline abnormal gait, Denies dizziness, Denies headache(s), Denies memory loss, Denies numbness, Denies Sensory deficit (Neuro), Denies tingling and Denies weakness Psych Denies anxiety, Denies depression, Denies memory loss Endo Denies cold intolerance, Denies fatigue, Denies heat intolerance, Denies polydipsia and Denies polyuria Aller/Immun Denies wheezing Physical exam (Primary Care) Vital Signs: Last Vital Signs Temp 98.3 F 07/10/23 16:42 Pulse 71 07/10/23 16:42 Resp 16 07/10/23 16:42 BP 116/68 07/10/23 16:42 Pulse Ox 97 07/10/23 16:42 Oxygen Delivery Method Room Air 07/10/23 16:42 BMI result Body Mass Index 26.0 Tobacco/Smoking Status: Tobacco use Status Tobacco use date assessed 07/10/23 07/10/23 16:52 Patient Tobacco Use Status Never used Tobacco 07/10/23 16:52 e-Cigarette/Vaping Use Never Used 07/10/23 16:52 Thrive Assessment: Date of Thrive Assessment Date Thrive assessed 02/28/23 07/10/23 16:52 Const Other: General: no acute distress and well developed Nutritional Appearance: well nourished Orientation/consciousness: patient oriented x3 HENMT Head: Yes normocephalic and Yes atraumatic Eyes General: appearance normal, both eyes and all related structures Pupils: Equal, round and reactive pupils present EOM: EOMs intact bilaterally Resp Effort & Inspection: normal respiratory effort Auscultation: clear to auscultation bilaterally Cardio Rate: regular rate Rhythm: regular rhythm Heart sounds: S1 normal heart sound present, S2 normal heart sound present, no gallops, no murmurs and no rubs GI Palpation (GI): No Abdominal aortic bruit present, Soft to palpation, nontender, No hepatosplenomegaly present and No Rebound tenderness present Auscultation: normal bowel sounds General: Yes no CVA tenderness Back/Spine/Pelvis Back: no CVA tenderness Cervical Spine: cervical ROM normal and No Cervical spine tenderness Thoracic/Lumbar Spine: thoraco-lumbar ROM normal, No pain with thoraco-lumbar ROM, No thoracic spinal tenderness and No lumbar spinal tenderness Extrem General: Yes normal to inspection, No edema and No calf tenderness Skin General: warm and dry. Normal skin color. Normal skin turgor Neuro General: patient oriented x3, abnormal gait at baseline and no focal neuro deficit Cranial nerves: Yes Equal, round and reactive pupils present Cognition (Neuro): normal cognition Gait exam (Neuro): Normal gait present Sensory Exam: No Sensory deficit (Neuro) Psych Appearance: grossly normal Affect: normal affect Attitude: cooperative Thought process: Normal thought process present Assessment and Plan Assessment & Plan (1) HTN (hypertension): Code(s): I10 - Essential (primary) hypertension Qualifiers: Hypertension type: essential hypertension Qualified Code(s): I10 - Essential (primary) hypertension Plan: Blood pressure is 116/68, within goal of less than 140/90 Continue current treatment regimen Low-sodium diet and routine exercise encouraged Follow-up in 4 months or return sooner with symptoms or concerns Verbalized understanding and agreed with treatment plan (2) Hyperlipidemia: Code(s): E78.5 - Hyperlipidemia, unspecified Plan: Recent triglyceride, total cholesterol, LDL, and HDL levels are normal, 274, 62, and 57 respectively Continue to take atorvastatin as prescribed Advised to limit foods high in saturated fat and avoid foods high in trans fat Routine exercise encouraged Advised to fast for 10-12 hours, may drink water only, and get blood work done before her next visit Follow-up in 4 months (3) Osteopenia: Code(s): M85.80 - Other specified disorders of bone density and structure, unspecified site Plan: Recent DEXA scan results reviewed with the patient: Osteopenia Will order vitamin D3 2000 units daily. Instructed on the risks, benefits, and potential adverse reactions of the medication Verbalized understanding and agreed with plan Medications: New cholecalciferol (vitamin D3) 50 mcg PO DAILY 90 days 90 tabs 1RF Changed From levetiracetam 1,000 mg (10 mL) PO DAILY@0800 30 days 473 mL 3RF To levetiracetam 1,000 mg PO BID Coding Level of Care Code Est Pt Level 4 (83079) Complex EM visit Add On G2211 Diagnoses Essential hypertension I10 Hypertension type: essential hypertension Hyperlipidemia E78.5 Osteopenia M85.80
== END 2023-07-10 17:24 | disposition home or self-care (01) ==
PROVIDERS: PCP Nurse Practitioner Family; Visit Provider Nurse Practitioner Family
DX: I10 Essential (primary) hypertension (principal); E78.5 Hyperlipidemia, unspecified; M85.80 Other specified disorders of bone density and structure, unspecified site
CPT/HCPCS: 99214; G2211

== ENCOUNTER 2023-08-18 12:14 | Inpatient (IN) | payer OTHER, SELFPAY ==
--- NOTE | ~2023-08-18 | CT_ITS ---
EXAMINATION: CT HEAD WITHOUT CONTRAST CLINICAL INFORMATION: Seizure. History of right frontal brain cancer. COMPARISON: Previous head CT and brain MRI November 2022 TECHNIQUE: Contiguous axial imaging was performed from the skull base to vertex without intravenous administration of contrast. Exam limited due to motion. Repeat imaging performed. This CT examination was performed using dose optimization techniques as appropriate, variously including the following: *Automated exposure control *Adjustment of mA and/or kV according to patient size (this includes techniques or standardized protocols for targeted exams where dose is matched to indication/reason for exam; i.e. extremities or head) *Use of iterative reconstruction technique DLP: 3012 mGy-cm FINDINGS: Exam significantly limited due to motion artifact. There is a right frontal bone craniotomy defect. There is high attenuation surgical material seen in the medial right frontal lobe, unchanged. There is no evidence of an extra-axial collection. There is no evidence of intra or extra-axial hemorrhage. There are postsurgical or encephalomalacic changes in both frontal lobes, right greater than left and the left basal ganglia. This appears similar to previous exam. There is dilatation of the frontal horn of both lateral ventricles, left greater than right unchanged. Ventricles and extra-axial CSF spaces otherwise appropriate. No acute mass, mass effect or infarct is seen. Visualized sinuses mastoid air cells and middle ears are clear. No skull fracture seen. CT/CT head/brain wo IV con IMPRESSION: Very limited exam due to motion. No acute findings seen and no change from November 2022.
--- NOTE | ~2023-08-18 | CT_ITS ---
EXAMINATION: CT CERVICAL SPINE WITHOUT CONTRAST CLINICAL INFORMATION: Seizure. COMPARISON: Previous cervical spine CT November 2021 TECHNIQUE: Axial images through the cervical spine without contrast. Sagittal and coronal reconstructions on the technologist workstation. This CT examination was performed using dose optimization techniques as appropriate, variously including the following: *Automated exposure control *Adjustment of mA and/or kV according to patient size (this includes techniques or standardized protocols for targeted exams where dose is matched to indication/reason for exam; i.e. extremities or head) *Use of iterative reconstruction technique DLP: 444 mGy-cm FINDINGS: Exam limited due to patient positioning. Head is tilted significantly to the right. There is increased kyphosis at C2-C3. Alignment is similar to November 2021 exam. No fracture or dislocation seen. Severe degenerative spondylosis with anterior vertebral body bridging bony osteophytes from C2-C3 to C7-T1. There is multilevel disc space narrowing. There is bilateral facet arthritis. Prevertebral soft tissues are normal. Lung apices are clear. CT/CT cervical spine wo IV con IMPRESSION: Limited exam due to patient positioning. Multilevel degenerative changes. No fracture or dislocation seen. Fleischner guidelines were followed.
--- NOTE | ~2023-08-18 | XR_ITS ---
EXAMINATION: XR CHEST CLINICAL INFORMATION: Cough and congestion COMPARISON: Previous chest x-ray November 2022 TECHNIQUE: Frontal view of the chest was obtained. FINDINGS: No significant abnormality is noted involving the heart, lungs, mediastinum, bony thorax or soft tissues. XR/XR chest 1V IMPRESSION: Unremarkable examination.
--- NOTE | 2023-08-18 12:19 | ECG_ITS ---
Test Reason : SEIZURE Blood Pressure : / mmHG Vent. Rate : 114 BPM Atrial Rate : 114 BPM P-R Int : 166 ms QRS Dur : 082 ms QT Int : 322 ms P-R-T Axes : 052 019 056 degrees QTc Int : 443 ms Sinus tachycardia with occasional Premature ventricular complexes Otherwise normal ECG When compared with ECG of 03-DEC-2022 14:30, Premature ventricular complexes are now Present Vent. rate has increased BY 38 BPM Referred By: Trini Aguilar Electronically Signed By:MARY THRASHER MD
[2023-08-18 12:20] VITALS: BP 182/97; PULSE 121; RESP 18; TEMP 36.8; O2SAT 96; BMI 29.6
--- NOTE | 2023-08-18 12:22 | ED_ITS ---
HPI - General Adult General Chief complaint: Seizure Stated complaint: SEIZURE Time Seen by Provider: 08/18/23 12:18 History of Present Illness ED Provider: Dr. Aguilar HPI narrative: 68 y/o F patient; PMH malignant right frontal brain tumor s/p x2 craniotomy with chronic bifrontal encephalomalacia s/p chemotherapy and radiation, HTN, HLD, TERI on CPAP, hx CVA, hx DVT on Xarelto, seizure disorder on Keppra (1g BID); presents from home via EMS with report of witnessed 3min seizure prior to arrival. Patient did take her seizure medication this morning, although she declined to take her hypertension medication. EMS provided 2mg Versed IV. Patient arrives post-ictal. Patient's daughter states she had poor sleep overnight. She has recently had increased cough/congestion. Patient's daughter witnessed the seizure today. She states it was not typical of the patient's usual seizures which are typically tonic-clonic. Today the episode was mild whole body twitching with verbal unresponsiveness. It also lasted longer than her usual seizures at approx 3 - 4 min. Patient's daughter did report the patient began to become more reactive by EMS arrival. Patient arrives with DNR/DNI paperwork. Related Data Home Medications ?Medication ?Instructions ?Recorded ?Confirmed multivitamin 1 tab PO DAILY 03/30/22 04/23/23 acetaminophen 325 mg tablet 650 mg PO Q6H PRN elevated 12/11/22 07/10/23 temp/pain magnesium hydroxide 400 mg/5 mL 30 ml PO DAILY PRN Constipation 12/11/22 07/10/23 oral suspension (Milk of Magnesia) levetiracetam 100 mg/mL oral 1,000 mg PO BID 07/10/23 07/10/23 solution Previous Rx's ?Medication ?Instructions ?Recorded miscellaneous medical supply #240 ea 10/05/22 docusate sodium 100 mg capsule 100 mg PO BEDTIME #90 caps 03/27/23 miscellaneous medical supply See Rx Instructions miscellaneous 03/31/23 .COMPLEX #1 ea atorvastatin 40 mg tablet 40 mg PO DAILY #90 tabs 04/18/23 aspirin 81 mg tablet,delayed 81 mg PO DAILY #90 tabs 04/20/23 release rivaroxaban 20 mg tablet (Xarelto) 20 mg PO DAILY@1700 30 days #30 04/28/23 tabs miscellaneous medical supply See Rx Instructions miscellaneous 05/05/23 .COMPLEX #1 ea amlodipine 5 mg tablet 5 mg PO DAILY 90 days #90 tabs 05/29/23 cholecalciferol (vitamin D3) 50 50 mcg PO DAILY 90 days #90 tabs 07/10/23 mcg (2,000 unit) tablet Allergies Allergy/AdvReac Type Severity Reaction Status Date / Time apple [Apple] Allergy Severe THROAT Verified 08/18/23 12:22 SWELLING pollen extracts [POLLEN] Allergy Intermediate SNEEZING Verified 08/18/23 12:22 COUGHING ALOT kiwi AdvReac Intermediate VOMITING Verified 08/18/23 12:22 [Kiwi (Actinidia Chinensis)] avocado [Avocado] AdvReac Mild VOMITING Verified 08/18/23 12:22 Review of Systems 2 Review of Systems: Yes Unobtainable due to mental status [facility] Past Medical History Source: old records reviewed Medical History Seizure Brain cancer Metabolic alkalosis with respiratory acidosis Encounter for palliative care Sebaceous cyst of axilla Essential hypertension PVC (premature ventricular contraction) PAC (premature atrial contraction) Torticollis, acquired UTI (urinary tract infection), bacterial Bladder incontinence Unspecified urinary incontinence Abscess Symptomatic PVCs Physical exam, annual Stroke Insomnia Closed fracture of fibula with routine healing Fracture of distal end of fibula Right ankle pain HTN (hypertension) DVT (deep venous thrombosis) Surgical History Hx of section Hx of tubal ligation H/O craniotomy Family History Family History Mother Diabetes Father Heart disease Family/Other Breast cancer Brain cancer Diabetes Social History Social History Household Members: Spouse Housing: House Housing Other:: Lives with Spouse Do you presently have visiting nurse or other home services: Yes ([employer]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[employer]) Unable to assess alcohol history related to: Unable to respond Alcohol intake: never Patient Tobacco Use Status: Never used Tobacco e-Cigarette/Vaping Use: Never Used Second Hand Smoke Exposure: No Advance Directives: Yes Advance Directives on File: Yes Advance Directives Date on File: 02/12/20 Do you have a plan to hurt others: No Plan service: No Current occupational status: retired and disabled Cognitive needs: Yes Hearing needs: No Vision needs: Yes Physical Exam ED Vital Signs: Vital Signs - 24 hr 08/18/23 12:20 08/18/23 12:56 08/18/23 15:58 Temperature 98.3 F 99.1 F Pulse Rate 121 H 110 H Respiratory Rate 18 23 H Blood Pressure 182/97 H 170/79 H Pulse Oximetry 96 99 Oxygen Delivery Method Room Air Nasal Cannula Oxygen Flow Rate 2 08/18/23 18:02 08/18/23 21:02 Temperature 100.7 F H 100 F Pulse Rate 106 H 99 Respiratory Rate 21 H 19 Blood Pressure 168/82 H 169/75 H Pulse Oximetry 100 99 Oxygen Delivery Method Nasal Cannula Room Air Oxygen Flow Rate 2 BMI result Body Mass Index 29.6 Patient is afebrile, tachycardic, and hypertensive. Const Other: Awake - maintaining own airway but not responsive to commands. HENMT Head: Yes atraumatic Eyes General: appearance normal, both eyes and all related structures Conjunctivae: conjunctivae normal Pupils: Equal, round and reactive pupils present EOM: EOMs intact bilaterally Neck Other: Torticollis to right-side Chest Chest palpation & inspection: normal inspection of the chest and normal palpation of entire chest wall Resp Effort & Inspection: normal respiratory effort, no cough and no respiratory distress Auscultation: clear to auscultation bilaterally Cardio Rate: tachycardic Rhythm: regular rhythm Peripheral pulses: Peripheral pulses 2+ throughout GI Inspection: No Abdominal wall edema and No distended Palpation (GI): Soft to palpation, not firm, no guarding and not rigid Auscultation: normal bowel sounds Neuro Other: Patient is not responsive to commands or verbal stimuli. Responsive to painful stimuli. Maintaining own airway. 3 - 4 beat clonus in bilateral lower extremities. Cranial nerves: Yes Equal, round and reactive pupils present Course Course Course Narrative: Patient is afebrile, tachycardic, and hypertensive. Collateral history obtained from patient's daughter. Will obtain CT Head/Neck as patient is on blood thinners and had prolonged, unusual seizure activity today. Will obtain CXR and respiratory swab given recent respiratory symptoms. Will obtain EKG (for arrhythmia review) and laboratory studies. Ordered keppra level. Providing 1L IVF and Keppra 1g IV. Reevaluation(s) Reevaluation #1: CXR unremarkable. Laboratory studies reviewed. Leukocytosis 10.9. LA 2.5 - suspect elevated in the setting of witnessed seizure activity today. Providing 1L IVF. Initial troponin 6.3. Repeat troponin flat at 8.1. CT Head and Cervical Spine limited due to movement, however without any specific focal abnormalities when compared to prior studies. Discussed results with patient's daughter at bedside. She states patient has started to stir and say occasional words however still in post-ictal period. Pending period of observation. Time: 18:35 Reevaluation #2: At 6pm patient spiked fever 100.7F. Ordered for STAT blood cultures. COVID/Flu/RSV negative. Received total 1.5L IVF. CXR unremarkable as above. LP completed as per procedure note. No acute complications. Providing empiric antibiotics and steroids. Catheterized urine pending. CSF unremarkable for acute pathology. UA resulted with evidence of infection. Plan: Admit to hospitalist for encephalopathy and fever of uncertain etiology Condition: Stable Medications Administered Discontinued Medications Generic Name Dose Route Start Last Admin Trade Name Freq PRN Reason Stop Dose Admin Dexamethasone Sodium Phosphate 10 mg 08/18/23 20:04 08/18/23 20:23 Dexamethasone Sod Phosphate 10 Mg/Ml Vial IVPUSH 08/18/23 20:05 10 mg ONCE ONE Administration Sodium Chloride 1,000 mls @ 999 mls/hr 08/18/23 12:45 08/18/23 13:09 Ns IV 08/18/23 13:45 999 mls/hr .Q1H1M ANTONIA Administration Levetiracetam 1,000 mg in 100 mls @ 400 mls/hr 08/18/23 12:43 08/18/23 13:22 Keppra IV 08/18/23 12:57 Infused ONCE ONE Infusion Ceftriaxone Sodium 2 gm/ 50 mls @ 100 mls/hr 08/18/23 18:49 08/18/23 20:52 Sodium Chloride IV 08/18/23 19:18 Infused ONCE ONE Infusion Vancomycin HCl 1,000 mg/ 535 mls @ 267.5 mls/hr 08/18/23 18:49 08/18/23 20:44 Vancomycin HCl 750 mg/ Sodium IV 08/18/23 20:48 267.5 mls/hr Chloride ONCE ONE Administration Acetaminophen 1,000 mg in 100 mls @ 400 mls/hr 08/18/23 19:05 08/18/23 20:51 Ofirmev IV 08/18/23 19:19 Infused ONCE ONE Infusion Procedures Lumbar Puncture Time Out Performed: Yes Patient Position: left lateral decubitus Skin Prep: Povidone-Iodine 1% Local Anesthetic: lidocaine 1% Amount of anesthesia used (mL): 3 Spinal Needle Gauge: 20G Interspace Used: L4-L5 Fluid Initially Obtained: clear Complications: none Medical Decision Making Lab Data 08/18/23 13:19 08/18/23 13:19 Labs: Lab Results 08/18/23 08/18/23 08/18/23 Range/Units 13:02 13:18 13:19 WBC 10.9 H (4.8-10.8) X10*3/uL RBC 5.16 (4.20-5.50) X10*6/uL Hgb 14.4 (12.0-16.0) g/dl Hct 44.8 (37.0-47.0) % MCV 86.8 (80.0-98.0) fL MCH 27.9 (27.0-33.0) pg MCHC 32.1 (31.0-35.0) g/dl RDW 13.8 (11.0-16.0) % Plt Count 277 D (160-400) X10*3/uL MPV 10.1 (9.4-12.3) fL Immature Gran % (Auto) 0.5 H (0.0-0.4) % Neut % (Auto) 89.7 H (45-73) % Lymph % (Auto) 7.2 L (20-40) % Morrill % (Auto) 2.1 (2-11) % Eos % (Auto) 0.0 (0-4) % Baso % (Auto) 0.5 (0-2) % Lymph # (Auto) 0.8 L (1.2-4.9) X10*3/uL Morrill # (Auto) 0.2 (0.1-1.2) X10*3/uL Eos # (Auto) 0.0 (0.0-0.4) X10*3/uL Baso # (Auto) 0.1 (0.0-0.2) X10*3/uL Abs Immat Gran (auto) 0.05 H (0.00-0.03) X10*3/uL Absolute Neuts (auto) 9.8 H (2.0-8.3) x10*3/uL Absolute Nucleated RBC 0.000 (0.0-0.012) X10*3/uL Nucleated RBC % (auto) 0.0 (0.0-0.2) /100WBC Hold Blue Top SEE NOTE Sodium 139 (135-145) mmol/L Potassium 4.3 (3.3-5.1) mmol/L Chloride 103 (96-108) mmol/L Carbon Dioxide 27 (22-29) mmol/L Anion Gap 13 (12-20) BUN 9 (9-16) mg/dL Creatinine 0.69 (0.5-1.4) mg/dL Estim Creat Clear Calc 75.0 Estimated GFR > 60 Random Glucose 154 H (60-115) mg/dL Lactic Acid 2.5 H* (0.5-2.0) mmol/L Calcium 9.3 (8.4-10.2) mg/dL Total Bilirubin 0.4 (0.0-1.0) mg/dL Direct Bilirubin 0.2 (0.0-0.5) mg/dL AST 19 (5-31) U/L ALT 32 H (0-31) U/L Alkaline Phosphatase 120 H (39-117) U/L Troponin I High Sens 6.3 D (<3.5-17.0) ng/L Total Protein 7.8 (6.5-8.0) g/dL Albumin 4.0 (3.5-5.0) g/dL Lipase 25 (8-78) U/L Urine Color Urine Appearance Urine pH (5.0-9.0) Ur Specific [place] (1.005-1.025) Urine Protein (Neg-Trace) mg/dL Urine Glucose (UA) (Negative) mg/dL Urine Ketones (Negative) mg/dL Urine Blood (Negative) Urine Nitrite (Negative) Ur Leukocyte Esterase (Negative) Urine RBC (0-2) /HPF Urine WBC (0-5) /HPF Ur Squamous Epith Cells (0-2) /HPF Urine Bacteria (None Seen) Hyaline Casts (0-2) /LPF CSF Tube Number CSF Volume ML CSF Appearance CSF Color CSF WBC MM*3 CSF RBC MM*3 CSF Appearance (b) CSF Glucose mg/dL CSF Total Protein (15-45) mg/dL Salicylates (15-30) mg/dL Urine Opiates Screen (Not Detect) Ur Buprenorphine Scrn (Not Detect) ng/mL Ur Oxycodone Screen (Not Detect) ng/mL Urine Methadone Screen (Not Detect) ng/mL Urine Fentanyl Screen (Not Detect) Acetaminophen (<30) mcg/mL Ur Barbiturates Screen (Not Detect) Ur Phencyclidine Scrn (Not Detect) Ur Amphetamines Screen (Not Detect) U Benzodiazepines Scrn (Not Detect) Urine Cocaine Screen (Not Detect) U Marijuana (THC) Screen (Not Detect) Ethyl Alcohol mg/dL Influenza Type A (PCR) NEGATIVE (Negative) Influenza Type B (PCR) NEGATIVE (Negative) RSV RNA Qual (PCR) NEGATIVE (Negative) SARS-CoV-2 RNA (RT-PCR) NEGATIVE (Negative) 08/18/23 08/18/23 08/18/23 Range/Units 15:22 19:48 19:48 WBC (4.8-10.8) X10*3/uL RBC (4.20-5.50) X10*6/uL Hgb (12.0-16.0) g/dl Hct (37.0-47.0) % MCV (80.0-98.0) fL MCH (27.0-33.0) pg MCHC (31.0-35.0) g/dl RDW (11.0-16.0) % Plt Count (160-400) X10*3/uL MPV (9.4-12.3) fL Immature Gran % (Auto) (0.0-0.4) % Neut % (Auto) (45-73) % Lymph % (Auto) (20-40) % Morrill % (Auto) (2-11) % Eos % (Auto) (0-4) % Baso % (Auto) (0-2) % Lymph # (Auto) (1.2-4.9) X10*3/uL [place] # (Auto) (0.1-1.2) X10*3/uL Eos # (Auto) (0.0-0.4) X10*3/uL Baso # (Auto) (0.0-0.2) X10*3/uL Abs Immat Gran (auto) (0.00-0.03) X10*3/uL Absolute Neuts (auto) (2.0-8.3) x10*3/uL Absolute Nucleated RBC (0.0-0.012) X10*3/uL Nucleated RBC % (auto) (0.0-0.2) /100WBC Hold Blue Top Sodium (135-145) mmol/L Potassium (3.3-5.1) mmol/L Chloride (96-108) mmol/L Carbon Dioxide (22-29) mmol/L Anion Gap (12-20) BUN (9-16) mg/dL Creatinine (0.5-1.4) mg/dL Estim Creat Clear Calc Estimated GFR Random Glucose (60-115) mg/dL Lactic Acid (0.5-2.0) mmol/L Calcium (8.4-10.2) mg/dL Total Bilirubin (0.0-1.0) mg/dL Direct Bilirubin (0.0-0.5) mg/dL AST (5-31) U/L ALT (0-31) U/L Alkaline Phosphatase (39-117) U/L Troponin I High Sens 8.1 (<3.5-17.0) ng/L Total Protein (6.5-8.0) g/dL Albumin (3.5-5.0) g/dL Lipase (8-78) U/L Urine Color Urine Appearance Urine pH (5.0-9.0) Ur Specific [place] (1.005-1.025) Urine Protein (Neg-Trace) mg/dL Urine Glucose (UA) (Negative) mg/dL Urine Ketones (Negative) mg/dL Urine Blood (Negative) Urine Nitrite (Negative) Ur Leukocyte Esterase (Negative) Urine RBC (0-2) /HPF Urine WBC (0-5) /HPF Ur Squamous Epith Cells (0-2) /HPF Urine Bacteria (None Seen) Hyaline Casts (0-2) /LPF CSF Tube Number 1 4 CSF Volume 1.0 ML CSF Appearance CLEAR CSF Color COLORLESS CSF WBC 2 MM*3 CSF RBC 186 MM*3 CSF Appearance (b) Clear, Colorless CSF Glucose 85 mg/dL CSF Total Protein 48.8 H (15-45) mg/dL Salicylates (15-30) mg/dL Urine Opiates Screen (Not Detect) Ur Buprenorphine Scrn (Not Detect) ng/mL Ur Oxycodone Screen (Not Detect) ng/mL Urine Methadone Screen (Not Detect) ng/mL Urine Fentanyl Screen (Not Detect) Acetaminophen (<30) mcg/mL Ur Barbiturates Screen (Not Detect) Ur Phencyclidine Scrn (Not Detect) Ur Amphetamines Screen (Not Detect) U Benzodiazepines Scrn (Not Detect) Urine Cocaine Screen (Not Detect) U Marijuana (THC) Screen (Not Detect) Ethyl Alcohol mg/dL Influenza Type A (PCR) (Negative) Influenza Type B (PCR) (Negative) RSV RNA Qual (PCR) (Negative) SARS-CoV-2 RNA (RT-PCR) (Negative) 08/18/23 08/18/23 Range/Units 20:01 20:12 WBC (4.8-10.8) X10*3/uL RBC (4.20-5.50) X10*6/uL Hgb (12.0-16.0) g/dl Hct (37.0-47.0) % MCV (80.0-98.0) fL MCH (27.0-33.0) pg MCHC (31.0-35.0) g/dl RDW (11.0-16.0) % Plt Count (160-400) X10*3/uL MPV (9.4-12.3) fL Immature Gran % (Auto) (0.0-0.4) % Neut % (Auto) (45-73) % Lymph % (Auto) (20-40) % [place]rill % (Auto) (2-11) % Eos % (Auto) (0-4) % Baso % (Auto) (0-2) % Lymph # (Auto) (1.2-4.9) X10*3/uL [place] # (Auto) (0.1-1.2) X10*3/uL Eos # (Auto) (0.0-0.4) X10*3/uL Baso # (Auto) (0.0-0.2) X10*3/uL Abs Immat Gran (auto) (0.00-0.03) X10*3/uL Absolute Neuts (auto) (2.0-8.3) x10*3/uL Absolute Nucleated RBC (0.0-0.012) X10*3/uL Nucleated RBC % (auto) (0.0-0.2) /100WBC Hold Blue Top Sodium (135-145) mmol/L Potassium (3.3-5.1) mmol/L Chloride (96-108) mmol/L Carbon Dioxide (22-29) mmol/L Anion Gap (12-20) BUN (9-16) mg/dL Creatinine (0.5-1.4) mg/dL Estim Creat Clear Calc Estimated GFR Random Glucose (60-115) mg/dL Lactic Acid 1.9 (0.5-2.0) mmol/L Calcium (8.4-10.2) mg/dL Total Bilirubin (0.0-1.0) mg/dL Direct Bilirubin (0.0-0.5) mg/dL AST (5-31) U/L ALT (0-31) U/L Alkaline Phosphatase (39-117) U/L Troponin I High Sens (<3.5-17.0) ng/L Total Protein (6.5-8.0) g/dL Albumin (3.5-5.0) g/dL Lipase (8-78) U/L Urine Color Yellow Urine Appearance Cloudy Urine pH 6.0 (5.0-9.0) Ur Specific [place] 1.015 (1.005-1.025) Urine Protein Trace (Neg-Trace) mg/dL Urine Glucose (UA) Negative (Negative) mg/dL Urine Ketones 40 (Negative) mg/dL Urine Blood Small (1+) H (Negative) Urine Nitrite Negative (Negative) Ur Leukocyte Esterase Moderate (2+) H (Negative) Urine RBC 3-5 H (0-2) /HPF Urine WBC >50 H (0-5) /HPF Ur Squamous Epith Cells 0-2 (0-2) /HPF Urine Bacteria 4+ (None Seen) Hyaline Casts 0-2 (0-2) /LPF CSF Tube Number CSF Volume ML CSF Appearance CSF Color CSF WBC MM*3 CSF RBC MM*3 CSF Appearance (b) CSF Glucose mg/dL CSF Total Protein (15-45) mg/dL Salicylates < 5.0 L (15-30) mg/dL Urine Opiates Screen Not Detected (Not Detect) Ur Buprenorphine Scrn Not Detected (Not Detect) ng/mL Ur Oxycodone Screen Not Detected (Not Detect) ng/mL Urine Methadone Screen Not Detected (Not Detect) ng/mL Urine Fentanyl Screen Not Detected (Not Detect) Acetaminophen < 3 (<30) mcg/mL Ur Barbiturates Screen Not Detected (Not Detect) Ur Phencyclidine Scrn Not Detected (Not Detect) Ur Amphetamines Screen Not Detected (Not Detect) U Benzodiazepines Scrn POSITIVE H (Not Detect) Urine Cocaine Screen Not Detected (Not Detect) U Marijuana (THC) Screen Not Detected (Not Detect) Ethyl Alcohol < 10 mg/dL Influenza Type A (PCR) (Negative) Influenza Type B (PCR) (Negative) RSV RNA Qual (PCR) (Negative) SARS-CoV-2 RNA (RT-PCR) (Negative) Independent Interpretation I performed an independent interpretation of an: EKG Interpretation: ST 114BPM with occasional PVCs, QTc 443. Radiology Impression Discussion of test interpretation with radiology: I have reviewed the radiologist's reading. Radiologist Impression: EXAMINATION: XR CHEST CLINICAL INFORMATION: Cough and congestion COMPARISON: Previous chest x-ray November 2022 TECHNIQUE: Frontal view of the chest was obtained. FINDINGS: No significant abnormality is noted involving the heart, lungs, mediastinum, bony thorax or soft tissues. XR/XR chest 1V IMPRESSION: Unremarkable examination. EXAMINATION: CT HEAD WITHOUT CONTRAST CLINICAL INFORMATION: Seizure. History of right frontal brain cancer. COMPARISON: Previous head CT and brain MRI November 2022 TECHNIQUE: Contiguous axial imaging was performed from the skull base to vertex without intravenous administration of contrast. Exam limited due to motion. Repeat imaging performed. This CT examination was performed using dose optimization techniques as appropriate, variously including the following: *Automated exposure control *Adjustment of mA and/or kV according to patient size (this includes techniques or standardized protocols for targeted exams where dose is matched to indication/reason for exam; i.e. extremities or head) *Use of iterative reconstruction technique DLP: 3012 mGy-cm FINDINGS: Exam significantly limited due to motion artifact. There is a right frontal bone craniotomy defect. There is high attenuation surgical material seen in the medial right frontal lobe, unchanged. There is no evidence of an extra-axial collection. There is no evidence of intra or extra-axial hemorrhage. There are postsurgical or encephalomalacic changes in both frontal lobes, right greater than left and the left basal ganglia. This appears similar to previous exam. There is dilatation of the frontal horn of both lateral ventricles, left greater than right unchanged. Ventricles and extra-axial CSF spaces otherwise appropriate. No acute mass, mass effect or infarct is seen. Visualized sinuses mastoid air cells and middle ears are clear. No skull fracture seen. CT/CT head/brain wo IV con IMPRESSION: Very limited exam due to motion. No acute findings seen and no change from November 2022. EXAMINATION: CT CERVICAL SPINE WITHOUT CONTRAST CLINICAL INFORMATION: Seizure. COMPARISON: Previous cervical spine CT November 2021 TECHNIQUE: Axial images through the cervical spine without contrast. Sagittal and coronal reconstructions on the technologist workstation. This CT examination was performed using dose optimization techniques as appropriate, variously including the following: *Automated exposure control *Adjustment of mA and/or kV according to patient size (this includes techniques or standardized protocols for targeted exams where dose is matched to indication/reason for exam; i.e. extremities or head) *Use of iterative reconstruction technique DLP: 444 mGy-cm FINDINGS: Exam limited due to patient positioning. Head is tilted significantly to the right. There is increased kyphosis at C2-C3. Alignment is similar to November 2021 exam. No fracture or dislocation seen. Severe degenerative spondylosis with anterior vertebral body bridging bony osteophytes from C2-C3 to C7-T1. There is multilevel disc space narrowing. There is bilateral facet arthritis. Prevertebral soft tissues are normal. Lung apices are clear. CT/CT cervical spine wo IV con IMPRESSION: Limited exam due to patient positioning. Multilevel degenerative changes. No fracture or dislocation seen. Fleischner guidelines were followed. Critical Care Time Critical Care Time Critical Care Time: Yes Total Critical Care Time: 75 Attestation: Critical care time for unstable vitals: tachycardia requiring hemodynamic support Discharge Plan Discharge Patient Disposition: Admitted As Inpatient Print Language: Mongolian
[2023-08-18 12:56] VITALS: TEMP 37.3
[2023-08-18] MEDS: levETIRAcetam in NaCl (iso-os) 1,000 MG/100 ML PIGGYBACK 400 MG IV (13:00)
[2023-08-18] MEDS: 0.9 % Sodium Chloride 1,000 ML 999 ML IV (13:09)
--- NOTE | 2023-08-18 13:17 | PC.NURSE ---
Patient incontinent of urine on arrival, cleaned and repositioned for comfort. Patient head contracted to the right, pillow placed for comfort. Patient moaning when rolled. Not responding to stimuli
[2023-08-18 13:25] LABS: MANUAL DIFF FLAG NO
[2023-08-18 13:29] LABS: Basophils Absolute Auto 0.1 X10*3/uL (0.0-0.2); Basophils Percent Auto 0.5 % (0-2); Hematocrit 44.8 % (37.0-47.0); Hemoglobin 14.4 g/dl (12.0-16.0); Imm Gran Abs Auto 0.05 X10*3/uL (0.00-0.03); Imm Gran Pct Auto 0.5 % (0.0-0.4); Lymphocytes Absolute Auto 0.8 X10*3/uL (1.2-4.9); Lymphocytes Percent Auto 7.2 % (20-40); Mean Corpuscular HGB Conc 32.1 g/dl (31.0-35.0); Mean Corpuscular Hemoglobin 27.9 pg (27.0-33.0); Mean Corpuscular Volume 86.8 fL (80.0-98.0); Mean Platelet Volume 10.1 fL (9.4-12.3); Monocytes Absolute Auto 0.2 X10*3/uL (0.1-1.2); Monocytes Percent Auto 2.1 % (2-11); Neutrophils Absolute Auto 9.8 x10*3/uL (2.0-8.3); Neutrophils Percent Auto 89.7 % (45-73); Platelet Count 277 X10*3/uL (160-400); Red Blood Count 5.16 X10*6/uL (4.20-5.50); Red Cell Distribution Width 13.8 % (11.0-16.0); White Blood Count 10.9 X10*3/uL (4.8-10.8)
--- OUTSIDE RECORDS SUMMARY | 2023-08-18 13:30 | XMS_ITS | Continuity of Care Document ---
Author Organization [facility] Address [address] [facility], [address] Floor, [address] [place] [id number] Care Team Providers Care Sterile Tech Name Role Phone Taylor Briceño MD Primary Care Physician [phone] [place] [facility] [place]): [place]/23 [facility] [address], [address], [address] [place] [id number] Allergies, Adverse Reactions, Alerts Substance Reaction Severity Status Pollen Active Apples Active Avocado Active Kiwi Active Immunizations Given and Recorded Vaccine Date Status Refusal Reason SARS-CoV-2 (COVID-19) mRNA-1273 vaccine 06/25/20 R ecorded SARS-CoV-2 (COVID-19) mRNA-1273 vaccine 05/28/20 R ecorded Medications acetaminophen 325 mg oral tablet 650 mg, By Mouth, Every 4 hours, PRN, Temperature Greater than 100.5, Refills 0, Maintenance, Pain , Mild, 02/18/22 12:07:00 EST, Partial fill upon patient request if the prescription is for a schedule II opioid drug. Start Date: 02/18/22 Status: Ordered Aspirin Tablet 81 mg, By Mouth, Daily, Refills 0, Maintenance, 02/18/22 12:07:00 EST, Partial fill upon patient request if the prescription is for a schedule II opioid drug. Start Date: 02/18/22 Status: Ordered Docusate/Senna Tablet 1 tablet, By Mouth, 2 times a day, PRN Constipation, 0 Refills, Maintenance, 02/18/22 12:07:00 EST,Tablet, Partial fill upon patient request if the prescription is for a schedule II opioid drug. Start Date: 02/18/22 Status: Ordered Keppra 500 mg oral tablet 2 tablet = 1,000 mg, By Mouth, 2 times a day, 0 Refills, Maintenance, 02/18/22 12:07:00 EST, Tablet, Partial fill upon patient request if the prescription is for a schedule II opioid drug. Start Date: 02/18/22 Status: Ordered Lipitor 40 mg oral tablet 1 tablet = 40 mg, By Mouth, Daily in AM, 0 Refills, Maintenance, 02/18/22 12:07:00 EST, Tablet, Partial fill upon patient request if the prescription is for a schedule II opioid drug. Start Date: 02/18/22 Status: Ordered melatonin 3 mg oral tablet = 3 mg, By Mouth, Daily at bedtime, PRN Insomnia, 0 Refills, Maintenance, 02/18/22 12:07:00 EST, Tablet, Partial fill upon patient request if the prescription is for a schedule II opioid drug. Start Date: 02/18/22 Status: Ordered MiraLax Powder 1 pack/packet = 17 Gm, By Mouth, Daily, 0 Refills, Maintenance, 02/18/22 12:08:00 EST, Powder, Partial fill upon patient request if the prescription is for a schedule II opioid drug. Start Date: 02/18/22 Status: Ordered rivaroxaban 20 mg oral tablet = 20 mg, By Mouth, Daily in AM, 0 Refills, Maintenance, 02/18/22 12:07:00 EST, Tablet, Partial fillupon patient request if the prescription is for a schedule II opioid drug. Start Date: 02/18/22 Status: Ordered Problem List Condition Confirmation Course Effective Dates Status Health St atus Informant Anaplastic astrocytoma Confirmed Active History of CVA with residual deficit Confirmed Active Left-sided weakness Confirmed Active Seizure disorder Confirmed Active Torticollis Confirmed Active Patient Care team information Care Team Personnel Name: Jos Tucker RN Position: [facility] RN Member Role: Primary Care Nurse Name: Taylor Briceño MD Position: [facility] Outreach Member Role: PCP Address: Address: [address] [place] [address]- Care Team Related Persons Name: DIONY TARA Address: [address] [place] [address] Name: PAM VORA Address: [address] [place] [address]
--- OUTSIDE RECORDS SUMMARY | 2023-08-18 13:30 | XMS_ITS | Continuity of Care Document ---
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 Start Date: 02/18/22 Status: Ordered oseltamivir 75 mg oral capsule 1 capsule = 75 mg, By Mouth, 2 times a day, for 3 days, # 6 capsule, 0 Refills, Acute 02/21/22 12:17:00 EST, 02/18/22 12:17:00 EST, Capsule, [facility], Partial fill upon patient request if the prescription is for a schedule II opioid drug. Start Date: 02/18/22 Stop Date: 02/21/22 Status: Ordered rivaroxaban 20 mg oral tablet [...] Seizure disorder Confirmed Active Torticollis Confirmed Active Results Orders for Microbiology Reports Name Date Blood Culture 02/16/22 Blood Culture #2 02/16/22 Microbiology Reports TEST:Blood Culture STATUS:Unauthenticated BODY SITE: SOURCE:Blood COLLECTED DATE/TIME:02/16/22 1:24 PM Blood Culture SPECIMEN DESCRIPTION : BLOOD L ARM SPECIAL REQUESTS : NONE CULTURE : NO GROWTH AFTER 48 HOURS REPORT STATUS : PRELIMINARY REPORT TEST:Blood Culture, Second Order STATUS:Unauthenticated BODY SITE: SOURCE:Blood COLLECTED DATE/TIME:02/16/22 1:24 PM Blood Culture, Second Order SPECIMEN DESCRIPTION : BLOOD R HAND SPECIAL REQUESTS : NONE CULTURE : NO GROWTH AFTER 48 HOURS REPORT STATUS : PRELIMINARY REPORT Radiology Reports * Exam Date Time Procedure Performing Provider Status 02/16/22 2:48 PM Chest Portable Nona Truy; Auth (V erified) Notes: (Chest Portable) Reason For Exam: Shortness of Breath RESULT: Chest Portable Examination: Portable chest performed on 02/16/2022. History: Hypoxia. Findings: A frontal view of the chest is submitted without comparison. The cardiac and mediastinal silhouettes are within normal limits. The lungs are clear. The osseous and soft tissue structures are unremarkable. IMPRESSION: There is no acute cardiopulmonary disease. WSN: [id number] Ordering Physician: Nemesio Turner Dictated By: Therese Matos MD Dictated Date/Time: 02/16/22 2:58 pm Reviewed By: Therese Matos MD Signed By: Therese Matos MD Signed Date/Time: 02/16/22 2:58 pm Transcribed By: DOMINIC Transcribed Date/Time: 02/16/22 2:57 pm Vital Signs Most recent to oldest [Reference Range]: 1 2 3 Weight 77.0 kg (02/18/22 12:04 PM) Oxygen Saturation [94-100 %] 95 % (02/18/22 2:00 PM) 96 % (02/18/22 5:21 AM) 95 % (02/17/22 8:39 PM) Pulse Rate [55-90 bpm] 99 bpm *H* (02/18/22 2:00 PM) 80 bpm (02/18/22 5:21 AM) 88 bpm (02/17/22 8:39 PM) Blood Pressure [90-138/55-84 mm Hg] 127/71mm Hg (02/18/22 2:00 PM) 143/75mm Hg *H* (02/18/22 5:21 AM) 162/82mm Hg *H* (02/17/22 8:39 PM) Respiratory Rate [16-30 br/min] 20 br/min (02/18/22 2:00 PM) 19 br/min (02/17/22 3:00 PM) 25 br/min (02/17/22 2:00 PM) Temperature [96.8-100.4 DegF] 98.2 DegF (02/18/22 2:00 PM) 97.9 DegF (02/18/22 5:21 AM) 98.0 DegF (02/17/22 8:39 PM) Liters per Minute 2 L/min (02/17/22 11:00 AM) 2 L/min (02/17/22 7:00 AM) 2 L/min (02/17/22 4:00 AM) Mode of Delivery (Oxygen) Room air (02/18/22 2:00 PM) Room air (02/18/22 5:21 AM) Room air (02/17/22 8:39 PM) Blood pressure sites Arm, right (02/18/22 2:00 PM) Arm, right (02/18/22 5:21 AM) Arm, right (02/17/22 8:39 PM) Temperature Route Oral (02/18/22 2:00 PM) Oral (02/18/22 5:21 AM) Oral (02/17/22 8:39 PM) Weight Obtained Via Bed scale (02/18/22 12:04 PM) History and physical note * Jeri Choudhury DO: PERFORM, MODIFY Event Display: History and Physical Hospital Authored Date: Patient: ??ZAID VORA ? Age:??66 Years?Sex:??Female?:??1955?? 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 The patient is accompanied by her daughter who helps to provide the bulk of the medical information and history.?? Her mother was hospitalized??1-1/2 months ago??at [facility]??where she was intubated for??hypercarbic respiratory failure??in the setting of underlying upper respiratory infection.?? She was unable to be??weaned off the ventilator,??and was??transferred to [facility]??on January 03??for consideration of mediastinal??tracheostomy??(due to concerns??from her severe torticollis).?? Ultimately, she was felt not to be a surgical candidate at??and extubated on??January 16.?? She??did well??postextubation??and eventually was discharged home.?? Yesterday she was noted to have increased??cough??and phlegm production??with??fever as well. ??Her O2 levels were noted to be low.?? She was placed on CPAP by her family??and her oxygenation improved??to the 90s.?? She persisted in having a fever today, so??her family brought her into the hospital.?? Labwork obtained here was notable for normal white count of 5.6 with a mild anemia with a hemoglobin of 11.5.?? Other labs were notable for an elevated bicarb of 31 with normal BUN and creatinine.?? High-sensitivity troponin was 25 with a BNP of 1606.?? The patient was noted to be influenza A positive.?? Chest x-ray obtained on this patient showed no acute abnormality.?? In the ED, the patient was placed on BiPAP and noted to have O2 sats in the high 90s.?? She is now being admitted for further management. Objective ? Vital Signs?? Temperature: 100.1 DegF (02/16/22:00:00) Temperature Route: Axillary (02/16/22 13:39:00) Pulse Rate:??98 bpm??High (02/16/22:23:) Heart Rate Monitored:??96 bpm??High (02/16/22:00:) Respiratory Rate: 27 br/min (02/16/22:00:00) Systolic Blood Pressure:??139 mm Hg??High (02/16/22::) Diastolic Blood Pressure: 74 mm Hg (02/16/22:00:) Blood pressure sites: Arm, left (02/16/22::) Mean Arterial Pressure: 87 mm Hg (02/16/22:39:00) Pulse Pressure: 65 mm Hg (02/16/22:00:) Oxygen Saturation: 100 % (02/16/22:23:00) Liters per Minute: 2 L/min (02/16/22:00:) Mode of Delivery (Oxygen): Nasal cannula (02/16/2200:) FiO2: 30 % (02/16/22:23:00) Early Warning Score: 2 (02/16/22 21:49:18) ? Physical Exam General: Alert, in no acute cardiopulmonary distress. Mental Status: Oriented to person, place and time. Normal affect. Head: Normocephalic. Eyes: Pupils are equal, round and reactive to light. Extraocular muscles intact. Ear, Nose and Throat: Oropharynx clear, mucous membranes moist. Ears and nose without masses, lesions or deformities. Trachea midline. Neck: Supple, contracture??to??right side. Respiratory: Clear to auscultation and percussion. No wheezing, rales or rhonchi. Cardiovascular: Heart sounds normal. Regular rate and rhythm, no murmurs, rubs or gallops. Gastrointestinal: Abdomen soft, non-tender, non-distended. Normal bowel sounds. No pulsatile mass. No hepatosplenomegaly. Neurologic: Cranial nerves II-XII grossly intact. ??Patient with left-sided weakness compared to the right side, but??some weakness on the right??lower greater than upper as well. Moves all extremities spontaneously. Sensation intact bilaterally. Skin: No rashes or lesions. No petechiae or purpura. No edema. Musculoskeletal: No cyanosis or clubbing. No gross deformities. Normal range of motion. Assessment/Plan This is a 66-year-old female??with past medical history as outlined above, who currently presents to the hospital??after she was noted to have??fever,??increased cough,??and low oxygen saturations.??She is noted to be influenza A positive here and is being admitted for further management. ?? Hypoxia ??(R09.02) Influenza A ??(J10.1) Acute hypoxic respiratory failure This patient will be admitted to an inpatient??intermediate care bed.?? She??was noted to have increased cough and phlegm production with fevers,??and is noted to be influenza A positive.?? Her chestx-ray presently shows no??evidence of pneumonia.?? She does have??progressive torticollis??that hasbeen refractory to??Botox??injections.?She was placed on??BiPAP in the ED,??but has been transitioned to nasal cannula.?? We will continue to monitor her??oxygen saturations closely.?? She had a recent hospitalization??in December at [place] and??became hypercarbic and required intubation.?? Perrecords from [facility],??she likely has chronic hypercarbic respiratory failure??with elevated serum bicarb levels.?? We will need to monitor her respiratory status closely.?? Confirmed with patient's??family that??she is a DNR, but??okay for??CPAP or BiPAP.?? We will initiate this patient on Tamiflu. ?? High risk of aspiration. Patient on a pur??ed diet at home with??honey thickened??liquids.?? We will ask speech therapy to see this patient??while she is here??for any additional recommendations. ?? Anaplastic astrocytoma Seizure disorder Patient is on Keppra??which we will give her IV for now, till she can??safely take oral??medication.?? She is followed with serial MRIs every 6 months for her??history of anaplastic astrocytoma. ?? History of CVA History of??left lower extremity DVT Patient has been maintained on Xarelto and we will continue her on this. ?? Hyperlipidemia. Patient on atorvastatin which will be continued. ?? History of hypertension. During patient's recent hospitalization,??her blood pressures were noted to be normal and??amlodipine and hydrochlorothiazide were discontinued. ??We will monitor her blood pressures here??presently. ?? CODE STATUS.?? This was discussed with patient's daughter and she is a DNR. ?? Patient seen on February 16, 2022. ? Histories Allergies Allergies ?(Active and Proposed Allergies Only) Pollen? (Severity: Unknown severity, Onset: Unknown) Kiwi? (Severity: Unknown severity, Onset: Unknown) Avocado? (Severity: Unknown severity, Onset: Unknown) Apples? (Severity: Unknown severity, Onset: Unknown) ? Past Medical History/Problem List Active Problems??(5) Anaplastic astrocytoma,??s/p resection, chemotherapy, and radiation??in 2009 History of CVA with residual deficit Left-sided weakness Seizure disorder Torticollis Hypertension Hyperlipidemia History of DVT Cervical dystonia Likely obstructive sleep apnea due to??torticollis ? 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 Social History Patient lives with her??daughter. She is a non-smoker, no significant alcohol intake, no drug use history. ?? Medications Home Medications??(confirmed with patient's daughter??and based on list from [facility]) Aspirin 81 mg daily Atorvastatin 40 mg daily??in the morning Keppra 1000 mg twice a day MiraLAX 17 g daily Nystatin powder??topically??twice daily Dulcolax suppository??10 mg rectally as needed Senna??8.8 mg liquid??daily at bedtime as needed Xarelto 20 mg daily in the morning ?? Results Recent Labs BLOOD COUNT & DIFF WBC 5.6 k/mm3 ()?? 02/16/2022 13:24 RBC 4.61 m/mm3 ()?? 02/16/2022 13:24 Hgb 11.5 Gm/dL (Low)?? 02/16/2022 13:24 Hct 38.9 % ()?? 02/16/2022 13:24 MCV 84.4 femtoliters ()?? 02/16/2022 13:24 MCH 24.9 pg (Low)?? 02/16/2022 13:24 MCHC 29.6 g/dL (Low)?? 02/16/2022 13:24 Platelet Count 270 k/mm3 ()?? 02/16/2022 13:24 RDW-SD 47.1 femtoliters (High)?? 02/16/2022 13:24 MPV 10.8 femtoliters ()?? 02/16/2022 13:24 Nucleated RBC (Automated) 0.0 #/100 WBC'S ()?? 02/16/2022 13:24 Abs. NRBC 0.0 k/mm3 ()?? 02/16/2022 13:24 Abs. Neut 4.7 k/mm3 ()?? 02/16/2022 13:24 Abs. Lymph 0.4 k/mm3 (Low)?? 02/16/2022 13:24 Abs. Kershaw 0.4 k/mm3 ()?? 02/16/2022 13:24 Abs. Eo 0.0 k/mm3 ()?? 02/16/2022 13:24 Abs. Baso 0.0 k/mm3 ()?? 02/16/2022 13:24 Neut % 85.4 % (High)?? 02/16/2022 13:24 Lymph % 7.0 % (Low)?? 02/16/2022 13:24 Kershaw % 6.3 % ()?? 02/16/2022 13:24 Eos % 0.2 % ()?? 02/16/2022 13:24 Baso % 0.4 % ()?? 02/16/2022 13:24 Imm Gran 0.7 % ()?? 02/16/2022 13:24 Abs. Imm Gran 0.0 k/mm3 ()?? 02/16/2022 13:24 ?? CARDIAC Nt-Probnp 1606 pg/mL (High)?? 02/16/2022 13:24 High Sensitivity Troponin (HSTnT) 25 ng/L (High)?? 02/16/2022 13:28 ?? CHEM GENERAL Sodium 141 mmol/L ()?? 02/16/2022 13:24 Potassium 4.2 mmol/L ()?? 02/16/2022 13:24 Chloride 101 mmol/L ()?? 02/16/2022 13:24 Bicarbonate Level 31 mmol/L (High)?? 02/16/2022 13:24 Anion Gap 9 ()?? 02/16/2022 13:24 Glucose Level 137 mg/dL (High)?? 02/16/2022 13:24 Glucose, POC 136 mg/dL (High)?? 02/16/2022 13:21 BUN 9 mg/dL ()?? 02/16/2022 13:24 Creatinine-Blood 0.6 mg/dL ()?? 02/16/2022 13:24 Estimated GFR Creatinine 98 ML/MIN/1.73 M2 ()?? 02/16/2022 13:24 Calcium 9.1 mg/dL ()?? 02/16/2022 13:24 ?? HEME OTHER Hold Lavender Top SPECIMEN DISCARDED AFTER 24 HOURS. ()?? 02/16/2022 13:24 Hold Blue Top SPECIMEN DISCARDED AFTER 4 HOURS. ()?? 02/16/2022 13:24 ?? VIROLOGY Influenza A PCR POSITIVE (Abnormal)?? 02/16/2022 13:21 Influenza B PCR NEGATIVE ()?? 02/16/2022 13:21 RSV PCR NEGATIVE ()?? 02/16/2022 13:21 COVID-19 PCR Specimen Source NASAL ()?? 02/16/2022 13:21 COVID-19 PCR Result NEGATIVE ()?? 02/16/2022 13:21 ? Imaging(s) ?Other Image ?EKG showing normal sinus rhythm with a heart rate of 100.??Some nonspecific T wave changes noted. ?(02/16/2022 14:48 EST Chest Portable) IMPRESSION: ?? There is no acute cardiopulmonary disease. [1] [1]??Chest Portable; Therese Matos MD 02/16/2022 14:48 EST EKG study * Event Display: ECG 12-Lead Authored Date: Please click on pdf link to open report * Event Display: ECG 12-Lead Authored Date: Ventricular Rate: 100 BPM Atrial Rate: 100 BPM P-R Interval: 138 ms QRS Duration: 78 ms Q-T Interval: 344 ms QTC Calculation(Bazett): 443 ms P Richland: 60 degrees R Rich[place]: 55 degrees T [place]: 63 degrees Normal sinus rhythm Nonspecific T wave abnormality Abnormal ECG No previous ECGs available Confirmed by BETH ANTOINE ([id number]) on 02/17/2022 4:57:26 PM Cidra: BETH ANTOINE Note * Darrell LONG, Hue: PERFORM Event Display: Discharge/Transfer Note Hospital Authored Date: Nursing Discharge Note Entered On: 02/18/2022 15:27 EST Performed On: 02/18/2022 15:26 EST by Darrell LONG, Hue Nursing Discharge Note 2 Discharge Time : 02/18/2022 15:26 EST Discharge Level of Care at Discharge : Homehealth/VNA Discharge VNA/Hospice/Home Care(v001) : [facility] [address] [facility] [address] [facility] [address] Discharge Medical Equip Companies(v001) : [facility] Patient Left Unit Via : Ambulance Patient Accompanied Off Unit with : Other: son DC Instructions Provided & Signed by Pt : Unable (Comment: signed by son [Darrell LONG, Hue - 02/18/2022 15:26 EST] ) Patient Understands D/C Instructions : Yes Patient Instructions Discharge Signed : Yes Did Pt have Specialty Bed or Wound Vac : No Darrell LONG, Hue - 02/18/2022 15:26 EST * Ana Campos MD: PERFORM, SIGN, VERIFY Event Display: Discharge/Transfer Note Hospital Authored Date: [id number] Patient: ZAID VORA Age: 66 years Sex: Female : 1955 Associated Diagnoses: None Author: Ana Campos MD Discharge Information Admission Date: 02/16/2022 Discharge Date 02/18/2022 Primary Care Provider Nicole Denny NP Principal Discharge Diagnosis Influenza A: Present on admission - yes. Hypoxia: Present on admission - yes. Secondary Discharge Diagnoses Torticollis: Present on admission - yes. Seizure disorder: Present on admission - yes. Left-sided weakness: Present on admission - yes. History of CVA with residual deficit: Present on admission - yes. Anaplastic astrocytoma: Present on admission - yes. Medications (Selected) Documented Medications Documented Aspirin Tablet: 81 mg, By Mouth, Daily, Refills 0, Maintenance, 02/18/22 12:07:00 EST, Partial fillupon patient request if the prescription is for a schedule II opioid drug. Docusate/Senna Tablet: 1 tablet, By Mouth, 2 times a day, PRN Constipation, 0 Refills, Maintenance,02/18/22 12:07:00 EST, Tablet, Partial fill upon patient request if the prescription is for a schedule II opioid drug. Keppra 500 mg oral tablet: 2 tablet = 1,000 mg, By Mouth, 2 times a day, 0 Refills, Maintenance, 02/18/22 12:07:00 EST, Tablet, Partial fill upon patient request if the prescription is for a scheduleII opioid drug. Lipitor 40 mg oral tablet: 1 tablet = 40 mg, By Mouth, Daily in AM, 0 Refills, Maintenance, 02/18/22 12:07:00 EST, Tablet, Partial fill upon patient request if the prescription is for a schedule II opioid drug. MiraLax Powder: 1 pack/packet = 17 Gm, By Mouth, Daily, 0 Refills, Maintenance, 02/18/22 12:08:00 EST, Powder, Partial fill upon patient request if the prescription is for a schedule II opioid drug. acetaminophen 325 mg oral tablet: 650 mg, By Mouth, Every 4 hours, PRN, Temperature Greater than 100.5, Refills 0, Maintenance, Pain , Mild, 02/18/22 12:07:00 EST, Partial fill upon patient request if the prescription is for a schedule II opioid drug. melatonin 3 mg oral tablet: = 3 mg, By Mouth, Daily at bedtime, PRN Insomnia, 0 Refills, Maintenance, 02/18/22 12:07:00 EST, Tablet, Partial fill upon patient request if the prescription is for a schedule II opioid drug. oseltamivir 75 mg oral capsule: 1 capsule = 75 mg, By Mouth, 2 times a day, 0 Refills, Maintenance,02/18/22 12:07:00 EST, Capsule, Partial fill upon patient request if the prescription is for a schedule II opioid drug. rivaroxaban 20 mg oral tablet: = 20 mg, By Mouth, Daily in AM, 0 Refills, Maintenance, 02/18/22 12:07:00 EST, Tablet, Partial fill upon patient request if the prescription is for a schedule II opioiddrug.. Hospital Course Hospital Course 66-year-old female with past medical history including Astrocytoma, seizure dx, HTN, HLD, h/o DVT, severe, treatment refractory torticollis, recent prolonged admission at [facility], who was admitted with Influenza A. Influenza A (J10.1) Acute hypoxic respiratory failure - resolved Chronic hypercapnic respiratory failure Her chest x-ray shows no evidence of pneumonia. She was placed on BiPAP in the ED, but has been transitioned to nasal cannula and is now off oxygen for the last 24 hours. She feels well and is eager to return home. - Isolation - Complete 5 day course of Tamiflu - Supportive care - CPAP at night and with naps Dysphagia - Patient on a pureed diet at home with honey thickened liquids. Anaplastic astrocytoma Seizure disorder She is followed with serial MRIs every 6 months for her history of anaplastic astrocytoma. - Keppra History of CVA HLD History of left lower extremity DVT - Xarelto - Atorvastatin - +/- ASA since pt on Xarelto Hypertension. During patient's recent hospitalization, her blood pressures were noted to be normal and amlodipineand hydrochlorothiazide were discontinued. We will monitor her blood pressures here presently. Progressive Torticollis: Refractory to Botox injections. Recent admission to [facility] - no surgical intervention recommended. - Outpatient f/u General Appearance NAD. Fatigued. Not dyspneic. Not ill-appearing. HEENT Moist mucous membranes. Respiratory Lungs: CTA. Cardiac Cardiac: no M/G/R. Rhythms: RRR. Abdomen/GI Abdomen: soft, non-tender, non-distended, bowel sounds, no hepatosplenomegaly. Extremities No edema. Neurologic Alert & oriented x 3 . Results Laboratory : LABORATORY 02/18/2022 1:58 EST WBC 2.7 k/mm3 L Hgb 12.4 Gm/dL Hct 41.1 % Platelet Count 208 k/mm3 Sodium 143 mmol/L Potassium 3.8 mmol/L BUN 12 mg/dL Creatinine-Blood 0.5 mg/dL Alkaline Phosphatase 68 units/L AST (SGOT) 26 units/L ALT (SGPT) 19 units/L Bilirubin, Total 0.2 mg/dL 02/17/2022 5:25 EST COVID-19 PCR Result NEGATIVE 02/16/2022 13:28 EST High Sensitivity Troponin (HSTnT) 25 ng/L H 02/16/2022 13:24 EST WBC 5.6 k/mm3 Nt-Probnp 1,606 pg/mL H Blood Culture Blood Culture (Preliminary) Blood Culture, Second Order Blood Culture, Second Order (Preliminary) 02/16/2022 13:21 EST Influenza A PCR POSITIVE COVID-19 PCR Result NEGATIVE . Imaging 02/16/2022 14:48 EST Chest Portable Chest Portable . Discharge Plan Diet/Activity/Patient Education/Follow Up Follow Up with: Nicole Denny Within 3 to 5 days. Discharge Disposition Discharge: home with VNA. Home Health Face to Face I certify that this patient is under my care and that I or an allowed non- physician practitioner working with me, had a [id number] encounter with the patient on this date: 02/18/2022. Nursing: Chronic disease management. Physical Therapy: Home maintenance program for chronic disease. Occupational Therapy: ADL Management. Physician Signature: Ana Campos MD . Code Status: DNR. Discharge Condition: good, compared to admission improved. 35 minutes spent on discharge * Mikaela LONG, Daya French: PERFORM, SIGN, VERIFY Event Display: Case Management Discharge Plan Authored Date: Patient: ZAID VORA Age: 66 years Sex: Female : 1955 Associated Diagnoses: None Author: Daya Al RN, V Discharge Plan Case Management Discharge Plan : Case Management Discharge Plan Data 02/18/2022 11:25 EST Discharge Level of Care at Discharge Homehealth/VNA Discharge VNA/Hospice/Home Care [facility] Home Health [address] [facility] [address] [facility] [address] Discharge Medical Equipment [facility] Discharge Transportation Arranged [facility] [address] [place] [address] Discharge Arranged Transport Date/Time 02/18/2022 15:00 Mode of Transportation Arranged Ambulance Name of Agency #1 [facility] [phone] Agency [employer] #1 Marilee Gal, clinical intake, [facility] Categories #1 Occupational Therapy, Physical Therapy, Jail Service Comments #1 Alberto, your current provider, will resume your home retirement & therapy visits upon discharge. The office or your primary agency nurse will contact you to schedule your next home visit. Your daughter Jessie is aware of & agrees with this plan. Name of Agency #2 [facility] Categories #2 CPAP unit Service Comments #2 [facility] will continue to by your provider for any home CPAP related needs. * Darrell LONG, Crystal: PERFORM Event Display: Patient Education/Instruction Authored Date: [id number] Inpatient Adult Discharge Instructions [address] [address] Name: ZAID VORA : 1955 Visit: 02/16/2022 16:12:00 Current Date: 02/18/2022 14:41 Account: [id number] Inpatient Adult Discharge Instructions We would like to thank you for allowing us to assist you with your healthcare needs. The following includes patient education materials and information regarding your injury/illness. Our entire staffstrives to provide an excellent experience for our patients and their families. PLEASE ENSURE YOU FOLLOW-UP PER THE INSTRUCTIONS BELOW! ?? YOUR OPINION IS IMPORTANT TO US! Please complete the survey you may receive by mail or email. Your feedback will be used to make improvements to the healthcare experiences of our patients and their families. Surveys are administered by [employer] ?? If further treatment with your primary care physician or another doctor is recommended, it is important for you to keep the appointment. Call your primary care physician or return to the Emergency Department immediately if your condition worsens, fails to improve, or new symptoms develop. If you need to find a doctor, you can call [facility] for a referral at [phone] or toll free at [phone] or log in to [email or web address].. ?? You can view and manage your care through the patient portal or by using a health care luciano of your choosing. [employer] is a website that allows you to securely view your medical information including your hospital discharge summary, office visit summaries, medications and follow-up visits. You can also request appointments, renew medications, and request access to your medical information using a health care luciano of your choosing, or just ask a question. You can enroll at [email or web address] or register during your next office visit. You have been discharged from [facility], Patient Care Unit: S64. If you have any questions regarding these instructions after you leave, please call us and we will be happy to assist you. [facility] Your Care Team Attending Physician Harish Fay MD, Ana Discharging Providers Harish Fay MD, Ana Reason for Admission from [facility] with cold sx x2 days, hypoxic to 50s today recently intubated x 28 days Your Diagnosis Influenza A Hypoxia Torticollis Seizure disorder Left-sided weakness History of CVA with residual deficit Anaplastic astrocytoma Tests Performed Below is a partial list of the tests performed during your hospitalization. You may have had other tests and procedures not included in this list. Please discuss all test results with your provider. Basic Metabolic Panel CBC w/ Differential Comprehensive Metabolic Panel COVID-19 (2019 Novel Coronavirus) PCR COVID-19, RSV, and Flu A/B, Rapid PCR GLUCOSE POC High??Sensitivity??Troponin T HOLD BLUE TUBE HOLD LAVENDER TUBE ProBNP XR Chest Portable Primary Care Provider Denisha HERNANDEZ, Nicole Martinez Advance Directive Health Care Proxy on File No Patient refuses to discuss No qualifying data available. Discharge Vitals Temperature: 98.2 DegF Weight: 77 kg Pulse Rate:??99 bpm??High ?? Respiratory Rate: 20 br/min ?? Systolic Blood Pressure: 127 mm Hg ?? Diastolic Blood Pressure: 71 mm Hg ?? Oxygen Saturation: 95 % ?? Studies Pending All tests and labs ordered during this hospital stay have been completed unless listed below. Please discuss all pending results with your provider listed above in these instructions. ?? Blood Culture Blood Culture #2 What to do next Instructions From Your Doctor Discharge Orders You Need to Schedule the Following Appointments Follow Up with??Nicole Denny When??Within 3 to 5 days Where: [address] [place] [address]- [facility] (1) Discharge Medications ZAID VORA :1955 Visit Date:02/16/2022 Medications: Please continue your medications until treatment is completed or stopped by your provider. Medications not listed below should be discontinued. Discuss any questions related to medications with your provider. What How Much When Instructions Next Dose New Acetaminophen (acetaminophen 325 mg oral tablet) 650 Milligram Oral Every 4 hours as needed for Pain , Mild Temperature Greater than 100.5 ?? last dose tody at 1:30pm New Aspirin (Aspirin Tablet) 81 Milligram Oral Daily 02/19/2022 @ 8am New Atorvastatin (Lipitor 40 mg oral tablet) 1 tab(s) Oral Daily in the morning 02/19/2022 @ 8am New Docusate-Senna (Docusate/ Senna Tablet) 1 tab(s) Oral Twice a day as needed for Constipation 02/18/2022 @ 8pm New levETIRAcetam (Keppra 500 mg oral tablet) 2 tab(s) Oral Twice a day 02/18/2022 @ 8pm New Melatonin (melatonin 3 mg oral tablet) 3 Milligram Oral Daily at Bedtime as needed for Insomnia if needed at bedtime New Oseltamivir (oseltamivir 75 mg oral capsule) 1 capsule Oral Twice a day Duration: 3 Days Pickup at [facility] 3 02/18/2022 @ 8pm New Polyethylene Glycol 3350 (MiraLax Powder) 17 gram Oral Daily 02/19/2022 @ 8pm New rivaroxaban (rivaroxaban 20 mg oral tablet) 20 Milligram Oral Daily in the morning 02/19/2022 @8am Pharmacy Information [facility] 3: [address], [place] [id number] [phone] Test Results Below is a partial list of the most recent Laboratory test results done prior to this discharge. You may have had other tests and procedures not included in this list. Please discuss all test resultswith your provider. Basic Metabolic Panel (02/17/2022) ???Sodium - 140 mmol/L???Potassium - HEMOLYZED???Chloride - 104 mmol/L???Bicarbonate Level - 27 mmol/L???Anion Gap - 9???Glucose Level - 82 mg/dL???BUN - 9 mg/dL???Creatinine-Blood - 0.5 mg/dL???Estimated GFR Creatinine - 103 ML/MIN/1.73 M2???Calcium - 8.6 mg/dL CBC w/ Differential (02/18/2022) ???WBC - 2.7 k/mm3???RBC - 4.86 m/mm3???Hgb - 12.4 Gm/dL???Hct - 41.1 %???MCV - 84.6 femtoliters???MCH - 25.5 pg???MCHC - 30.2 g/dL???Platelet Count - 208 k/mm3???RDW-SD - 47.4 femtoliters???MPV - 10.3 femtoliters???Nucleated RBC (Automated) - 0.0 #/100 WBC'S???Abs. NRBC - 0.0 k/mm3???Abs. Neut - 1.1 k/mm3???Abs. Lymph - 1.2 k/mm3???Abs. Kershaw - 0.4 k/mm3???Abs. Eo - 0.1 k/mm3???Abs. Baso - 0.0 k/mm3???Neut % - 40.1 %???Lymph % - 42.7 %???Kershaw % - 15.0 %???Eos % - 1.8 %???Baso % - 0.4 %???Imm Gran - 0.0 %???Abs. Imm Gran - 0.0 k/mm3 Comprehensive Metabolic Panel (02/18/2022) ???Sodium - 143 mmol/L???Potassium - 3.8 mmol/L???Chloride - 106 mmol/L???Bicarbonate Level - 30 mmol/L???Anion Gap - 7???Glucose Level - 86 mg/dL???BUN - 12 mg/dL???Creatinine-Blood - 0.5 mg/dL???Estimated GFR Creatinine - 102 ML/MIN/1.73 M2???Calcium - 8.8 mg/dL???Protein, Total - 6.2 Gm/dL???Albu min - 3.1 Gm/dL???AG Ratio - 1.0???Alkaline Phosphatase - 68 units/L???AST (SGOT) - 26 units/L???ALT (SGPT) - 19 units/L???Bilirubin, Total - 0.2 mg/dL COVID-19 (2019 Novel Coronavirus) PCR (02/17/2022) ???COVID-19 PCR Specimen Source - NASAL???COVID-19 PCR Result - NEGATIVE COVID-19, RSV, and Flu A/B, Rapid PCR (02/16/2022) ???Influenza A PCR - POSITIVE???Influenza B PCR - NEGATIVE???RSV PCR - NEGATIVE???COVID-19 PCR Specimen Source - NASAL???COVID-19 PCR Result - NEGATIVE GLUCOSE POC (02/16/2022) ???Glucose, POC - 136 mg/dL High??Sensitivity??Troponin T (02/16/2022) ???High Sensitivity Troponin (HSTnT) - 25 ng/L HOLD BLUE TUBE (02/16/2022) ???Hold Blue Top - SPECIMEN DISCARDED AFTER 4 HOURS. HOLD LAVENDER TUBE (02/16/2022) ???Hold Lavender Top - SPECIMEN DISCARDED AFTER 24 HOURS. ProBNP (02/16/2022) ???Nt-Probnp - 1606 pg/mL Allergies (NKA means No Known Allergies) Apples Avocado Kiwi Pollen Problems Active Problems??(5) Anaplastic astrocytoma?? History of CVA with residual deficit?? Left-sided weakness?? Seizure disorder?? Torticollis?? Education Materials Below is the list of Educational Leaflet Providered with your Discharge Instructions. Valuables and Belongings I fully understand and agree that [facility] accepts no responsibility for all my personal property including clothing, toilet articles, radios, jewelry, dentures, hearing aids, rings, money, or any other property that is in my possession or is brought to me after admission. I understand certain valuables may be placed in a hospital safe for a short period of time. I understand that the hospital is not liable for loss or damage due to accident, fire, or other natural occurrence while said property is in the safe. I accept full responsibility for any personal property that I keep with me, and will not hold the hospital responsible in case of loss or disappearance. I acknowledge that i have been encouraged to send valuables and belongings home. ?? Review of Valuable and Belonging List: With family, With witness Date for Pt to Sign Valuables/Belongings: 02/17/22 20:40:00 ?? Other Discharge Information ? Case Management Discharge Plan?? Discharge Plan?? Discharge Agency Information?? Discharge Level of Care at Discharge: Homehealth/VNA Name of Agency #1: [facility] [phone] Discharge Transportation Arranged: [facility] [address] [facility] ??[phone] Agency [employer] #1: Marilee Santo, clinical intake, [employer] Mode of Transportation Arranged: Ambulance Service Categories #1: Occupational Therapy, Physical Therapy, Jail Discharge Arranged Transport Date/Time: 02/18/22 15:00:00 Service Comments #1: Alberto, your current provider, will resume your home retirement & therapy visits upon discharge. The office or your primary agency nurse will contact you to schedule your next home visit. Your daughter Jessie is aware of & agrees with this plan. Discharge VNA/Hospice/Home Care: [facility] [address] [facility] [address] [facility] [address] Name of Agency #2: [facility] Discharge Medical Equipment [facility]: [facility] Categories #2: CPAP unit ?? Service Comments #2: Farhat will continue to by your provider for any home CPAP related needs. ?? Pulmonary Rehab Status?? Pulmonary Rehab Discharge Status?? CPAP/BiPAP Mask Type: Full CPAP/BiPAP Mask Size: Small Respiratory Rate: 20 br/min Discharge Medical Equipment Companies: [facility] ? Common Emergency Awareness Tips IS IT A STROKE? Act FAST and Check for these signs: FACE Does the face look uneven? ARM Does one arm drift down? SPEECH Does their speech sound strange? TIME Call at any sign of stroke ?? Heart Attack Signs Chest discomfort: Most heart attacks involve discomfort in the center of the chest and lasts more than a few minutes, or goes away and comes back. It can feel like uncomfortable pressure, squeezing, fullness or pain. Discomfort in upper body: Symptoms can include pain or discomfort in one or both arms, back, neck, jaw or stomach. Shortness of breath: With or without discomfort. Other signs: Breaking out in a cold sweat, nausea, or lightheaded. Remember, MINUTES DO MATTER. If you experience any of these heart attack warning signs, call to get immediate medical attention! ?? Smoking can increase your chances of developing chronic health problems and can cause harmful effects to other family members in your house. If you smoke, you are strongly encouraged to quit. Please call [facility] [employer] [facility] at [phone] or 9-368-028Mixbook (9566) or log in to [email or web address] for referrals to smoking cessation programs. ?? The National Suicide Prevention Hotline is available 12/09 if you or someone you know needs to find a reason to keep living. By calling 4-384-334-[employer] (6071) you'll be connected to a skilled, trained counselor at a crisis center in your area. INPATIENT DISCHARGE INSTRUCTIONS SIGNATURE ZAID MARTINEZ Location:[facility] Registration Date and Time:02/16/2022 16:12 [facility] Primary Care Physician: Deinsha HERNANDEZ, Nicole Martinez, ZAID PETERSON, have received the above patient education materials/instructions and have verbalized understanding. If ambulance or transport services are being used I further acknowledge being givena choice of service. ?? If you need to contact me, please call me at this number: . Patient/Personal Injury Legal Assistant Name: Patient/Personal Injury Legal Assistant Signature: Relationship to Patient: Witness Name/Signature: Date: * Ana Campos MD: PERFORM, SIGN, VERIFY Event Display: Patient Education Handout Authored Date: * Event Display: Cardiac Rhythm Strips Authored Date: Hospital Progress note * Garrison Giordano RN: PERFORM, SIGN, VERIFY Event Display: Progress Note Hospital Authored Date: Patient: ZAID VORA Age: 66 years Sex: Female : 1955 Associated Diagnoses: None Author: Garrison Giordano RN Findings Narrative/Incidental Pt. A&Ox2-3 with periods of confusion and forgetfulness. Mild body discomfort voiced. PRN Acetaminophen given with positive effect. Lungs Dim , Aspiration prec. maintained. Bowel sounds present to all quadrants. Torticollis persists, repositioned as necessary. Droplet Isolation maintained for Influenza. Fall and Aspiration prec. maintained. Bed alarm on, low and locked. Safety checks and purposeful rounding continued. Plan of care continues. . * Ifeoma Stevens RN: PERFORM, SIGN, VERIFY Event Display: Progress Note Hospital Authored Date: Patient: ZAID VORA Age: 66 years Sex: Female : 1955 Associated Diagnoses: None Author: Ifeoma Stevens RN Findings Nursing Data Cardiac Data. : Cardiac Data. 02/17/2022 9:00 EST Cardiovascular Symptoms None Nail Bed Color, Fingers [place] Nail Bed Color, Toes [place] Skin Temperature Upper Extremities Warm Skin Temperature Lower Extremities Warm Pacemaker No Cardiac Rhythm Normal sinus rhythm Capillary Refill < 3 seconds Dorsalis Pedis Pulse, Left Weak Dorsalis Pedis Pulse, Right Weak Edema None quality assurance monitor chassis Yes Cardiovascular WNL except . Neurological Data. : Neurological Data. 02/17/2022 9:00 EST Neurological Symptoms Weakness or loss of muscle strength Level of Consciousness Full Consciousness Orientated to person, place, time Person, Place, Time, Event Characteristics of Speech Clear and normal Pupil description, left Regular Pupil description, right Regular Pupil reaction, left Brisk Pupil reaction, right Brisk Strength LUE 1-Trace movement Strength RUE 3-Active movement against gravity Strength LLE 1-Trace movement Strength RLE 2-Active movement horizontally Tone LUE Spastic Tone RUE Normal Tone LLE Spastic Tone RLE Normal Sensation LUE Intact Sensation RUE Intact Sensation LLE Intact Sensation RLE Intact Movement LUE Absent Movement RUE Spontaneous, To command, Flexes to pain, Extends to pain, Withdraws to pain Movement LLE Absent Movement RLE Flexes to pain, To command, Extends to pain, Withdraws to pain Response Eye Opening Spontaneously Motor Response-Adult Obeys commands Verbal Response-Adult Oriented and converses Wellington Coma Score 15 Neuro WNL except Memory Intact . Respiratory/Pulmonary Data. : Respiratory/Pulmonary Data. 02/17/2022 9:00 EST Respiratory Symptoms None Respiratory effort Unlabored Accessory Muscles use No Cough No cough Left Upper Lobe Breath Sounds Clear, Diminished Right Upper Lobe Breath Sounds Clear, Diminished Right Middle Lobe Breath Sounds Clear, Diminished Left Lower Lobe Breath Sounds Clear, Diminished Right Lower Lobe Breath Sounds Clear, Diminished Respiratory distress None Respiratory Treatment(s) Cough and deep breathe Respiratory WNL except . Narrative/Incidental Aox4, calm and cooperative, follows commands answering questions appropriately. Toloerated meals and medications. VSS weaned to RA sating 100%. Please see biophysical for full assessment. Call ortega in reach, safety precautions in place with purposeful hourly rounding.. Frequent monitoring no longerrequired downgraded to acute. . * Harish Fay MD, Ana: PERFORM, MODIFY Event Display: Progress Note Hospital Authored Date: [id number] Patient: ??ZAID VORA ? Age:??66 Years?Sex:??Female?:??1955?? Subjective Pt sleepy but arousable.??+ mild??SOB and cough. Review of Systems Constitutional:??No weight loss,+ fever, chills, +++weakness/ fatigue. HEENT:??No visual loss, blurred vision, double vision or yellow sclera. No hearing loss, sneezing, congestion, runny nose or sore throat. Skin:??No rash or itching. Cardiovascular:??No chest pain, chest pressure or chest discomfort. No palpitations. No??pedal edema. Respiratory:??+ mild??shortness of breath, cough or sputum production. Gastrointestinal:??No anorexia, nausea, vomiting or diarrhea. No abdominal pain. No??blood in stool. Genitourinary:??No burning micturition. No urinary frequency or incontinence. Neurologic:??No headache, dizziness, syncope, unilateral weakness, ataxia, numbness or tingling in the extremities. No change in bowel or bladder control. Musculoskeletal:??No muscle pain, back pain, joint pain or stiffness. Hematologic:??No bleeding or bruising. Lymphatics:??No enlarged lymph nodes. Psychiatric:??No depression or anxiety. Endocrine:??No reports of sweating. No cold or heat intolerance. No polyuria or polydipsia. Objective Vital Signs?? Temperature: 99 DegF (02/17/22 09:00:00) Temperature Route: Axillary (02/17/22 07:00:00) Pulse Rate: 82 bpm (02/17/22 07:00:00) Heart Rate Monitored: 77 bpm (02/17/22 04:00:00) Respiratory Rate: 20 br/min (02/17/22 07:00:00) Systolic Blood Pressure:??139 mm Hg??High (02/17/22 07:00:00) Diastolic Blood Pressure: 68 mm Hg (02/17/22 07:00:00) Blood pressure sites: Arm, left (02/17/22 00:00:00) Mean Arterial Pressure: 87 mm Hg (02/16/22 13:39:00) Pulse Pressure: 71 mm Hg (02/17/22 07:00:00) Oxygen Saturation: 99 % (02/17/22 07:00:00) Liters per Minute: 2 L/min (02/17/22 07:00:00) Mode of Delivery (Oxygen): Nasal cannula (02/17/22 07:00:00) FiO2: 30 % (02/16/22 13:23:00) Early Warning Score: 0 (02/17/22 09:19:08) ? Physical Exam General:??Alert, in no acute cardiopulmonary distress. Sleepy. Mental Status:??Oriented to person, place. Normal affect. Head:??Normocephalic. Eyes:??Pupils are equal, round and reactive to light. Extraocular muscles intact. Ear, Nose and Throat:??Oropharynx clear, mucous membranes moist. Ears and nose without masses, lesions or deformities. Neck:??Supple, torticollis Respiratory:??Clear to auscultation and percussion. No wheezing, rales or rhonchi. Cardiovascular:??Heart sounds normal. No thrills. Regular rate and rhythm, no murmurs, rubs or gallops. Gastrointestinal:??Abdomen soft, non-tender, non-distended. Normal bowel sounds. No pulsatile mass.No hepatosplenomegaly. Genitourinary:??No costovertebral angle tenderness. Neurologic:??Cranial nerves II-XII grossly intact.??+ residual mild left sided weakness.??Moves allextremities spontaneously. Sensation intact bilaterally. Skin:??No rashes or lesions. No petechiae or purpura. No edema. Musculoskeletal:??No cyanosis or clubbing. No gross deformities. Normal range of motion. Results Recent Labs BLOOD COUNT & DIFF WBC 5.6 k/mm3 ()?? 02/16/2022 13:24 RBC 4.61 m/mm3 ()?? 02/16/2022 13:24 Hgb 11.5 Gm/dL (Low)?? 02/16/2022 13:24 Hct 38.9 % ()?? 02/16/2022 13:24 MCV 84.4 femtoliters ()?? 02/16/2022 13:24 MCH 24.9 pg (Low)?? 02/16/2022 13:24 MCHC 29.6 g/dL (Low)?? 02/16/2022 13:24 Platelet Count 270 k/mm3 ()?? 02/16/2022 13:24 RDW-SD 47.1 femtoliters (High)?? 02/16/2022 13:24 MPV 10.8 femtoliters ()?? 02/16/2022 13:24 Nucleated RBC (Automated) 0.0 #/100 WBC'S ()?? 02/16/2022 13:24 Abs. NRBC 0.0 k/mm3 ()?? 02/16/2022 13:24 Abs. Neut 4.7 k/mm3 ()?? 02/16/2022 13:24 Abs. Lymph 0.4 k/mm3 (Low)?? 02/16/2022 13:24 Abs. Kershaw 0.4 k/mm3 ()?? 02/16/2022 13:24 Abs. Eo 0.0 k/mm3 ()?? 02/16/2022 13:24 Abs. Baso 0.0 k/mm3 ()?? 02/16/2022 13:24 Neut % 85.4 % (High)?? 02/16/2022 13:24 Lymph % 7.0 % (Low)?? 02/16/2022 13:24 Kershaw % 6.3 % ()?? 02/16/2022 13:24 Eos % 0.2 % ()?? 02/16/2022 13:24 Baso % 0.4 % ()?? 02/16/2022 13:24 Imm Gran 0.7 % ()?? 02/16/2022 13:24 Abs. Imm Gran 0.0 k/mm3 ()?? 02/16/2022 13:24 ?? CARDIAC Nt-Probnp 1606 pg/mL (High)?? 02/16/2022 13:24 High Sensitivity Troponin (HSTnT) 25 ng/L (High)?? 02/16/2022 13:28 ?? CHEM GENERAL Sodium 140 mmol/L ()?? 02/17/2022 06:47 Potassium HEMOLYZED mmol/L ()?? 02/17/2022 06:47 Chloride 104 mmol/L ()?? 02/17/2022 06:47 Bicarbonate Level 27 mmol/L ()?? 02/17/2022 06:47 Anion Gap 9 ()?? 02/17/2022 06:47 Glucose Level 82 mg/dL ()?? 02/17/2022 06:47 Glucose, POC 136 mg/dL (High)?? 02/16/2022 13:21 BUN 9 mg/dL ()?? 02/17/2022 06:47 Creatinine-Blood 0.5 mg/dL ()?? 02/17/2022 06:47 Estimated GFR Creatinine 103 ML/MIN/1.73 M2 ()?? 02/17/2022 06:47 Calcium 8.6 mg/dL ()?? 02/17/2022 06:47 ?? HEME OTHER Hold Lavender Top SPECIMEN DISCARDED AFTER 24 HOURS. ()?? 02/16/2022 13:24 Hold Blue Top SPECIMEN DISCARDED AFTER 4 HOURS. ()?? 02/16/2022 13:24 ?? VIROLOGY Influenza A PCR POSITIVE (Abnormal)?? 02/16/2022 13:21 Influenza B PCR NEGATIVE ()?? 02/16/2022 13:21 RSV PCR NEGATIVE ()?? 02/16/2022 13:21 COVID-19 PCR Specimen Source NASAL ()?? 02/16/2022 13:21 COVID-19 PCR Result NEGATIVE ()?? 02/16/2022 13:21 ? Microbiology ?? COVID-19, RSV, and Flu A/B, Rapid PCR?? Completed?? Source: Nasal Body Site: Nose Collected Dt/Tm: 02/16/2022 13:22 Last Updated Dt/Tm: 02/16/2022 14:53 ? Assessment/Plan Diagnoses Hypoxia ??(R09.02) Influenza A ??(J10.1) ?? Assessment:??66-year-old female with past medical history including Astrocytoma, seizure dx, HTN, HLD, h/o DVT, severe treatment refractory torticollis, recent prolonged admission at [facility], who??was admitted with Influenza A. ?? Influenza A??(J10.1) Acute hypoxic respiratory failure - resolved Chronic hypercapnic respiratory failure Her chest x-ray presently shows no evidence of pneumonia.?She was placed on BiPAP in the ED, buthas been transitioned to nasal cannula.?? - Isolation - Tamiflu - Oxygen as needed, currently 2l NC - Supportive care ?? Dysphagia - Patient on a pur??ed diet at home with honey thickened liquids.? - ST eval ?? Anaplastic astrocytoma Seizure disorder She is followed with serial MRIs every 6 months for her history of anaplastic astrocytoma. - Keppra ?? History of CVA HLD History of left lower extremity DVT - Xarelto - Atorvastatin ?? History of hypertension. During patient's recent hospitalization, her blood pressures were noted to be normal and amlodipineand hydrochlorothiazide were discontinued.??We will monitor her blood pressures here presently. ?? Progressive Torticollis:?? Refractory??to Botox injections. Recent admission to [facility] - no surgical intervention recommended. - outpatient f/u ?? Discharge Planning:??PT eval, ?SNF vs home ? Portable XR Chest Views * BH[employer]owerscribe , CIS S: TRANSCRIBE Therese Matos MD: VERIFY Event Display: Result: Authored Date: [id number] Examination: Portable chest performed on 02/16/2022. History: Hypoxia. Findings: A frontal view of the chest is submitted without comparison. The cardiac and mediastinal silhouettes are within normal limits. The lungs are clear. The osseous and soft tissue structures are unremarkable. IMPRESSION: There is no acute cardiopulmonary disease. WSN: [id number] Ordering Physician: Nemesio Turner Dictated By: Therese Matos MD Dictated Date/Time: 02/16/22 2:58 pm Reviewed By: Therese Matos MD Signed By: Therese Matos MD Signed Date/Time: 02/16/22 2:58 pm Transcribed By: DOMINIC Transcribed Date/Time: 02/16/22 2:57 pm Patient Care team information Care Team Personnel Name: Srinath LONG, Tonya Og Position: S RN Member Role: Primary Care Nurse Name: Nicole Denny NP Position: Reference Physician Member Role: PCP Address: Address: [address] [place] [id number]- Name: *S, ED Attending Position: [facility] ED Attendings Patient Name: *DENA, Inpt Attending Position: [facility] ED Medicine MD Name: Evelina Gaspar Position: [facility] ED TA [facility] Member Role: Beauty Specialist Name: Kaity Shirley RN Position: [facility] ED RN W/OE and Tasks Member Role: Patient Care Provider Name: Kimi Burns Position: [facility] ED RN W/OE and Tasks Member Role: Patient Care Provider Care Team Related Persons Name: TARA VORA Address: [address] [address]
--- OUTSIDE RECORDS SUMMARY | 2023-08-18 13:30 | XMS_ITS | Continuity of Care Document ---
Author Organization [facility] Address [address] [facility], [address], [address] [place] [id number]- Care Team Providers Care Provider Scribe Name Role Phone Taylor Briceño MD Primary Care Physician [phone] Encounter [facility] Date(s): 05/15/23 - 06/14/23 [facility] [address], [address] [place] [id number]- Allergies, Adverse Reactions, Alerts Substance Reaction Severity [...] Team Personnel Name: Jos Tucker RN Position: [facility] RN Member Role: Primary Care Nurse Name: Taylor Briceño MD Position: [facility] Outreach Member Role: PCP Address: Address: [address] [place] [address]- Care Team Related Persons Name: TARA VORA Address: home [address] [place] [address] Name: PAM VORA Address: home [address] [place] [address]
--- OUTSIDE RECORDS SUMMARY | 2023-08-18 13:30 | XMS_ITS | Continuity of Care Document ---
Author Organization [facility] ter Address [address] [place] [id number] Care Team Providers Care Health And Social Care Teacher Name Role Phone Denisha HERNANDEZ, Nicole Martinez Primary Care Physician Encounter [facility] Date(s): 02/28/22 - 03/03/[address] [id number] Encounter Diagnosis Altered mental state(Final) - 02/28/22 Lethargy(Final) - 02/28/22 Fever(Final) - 02/28/22 Fever(Final) - 02/28/22 Altered mental state(Final) - 02/28/22 Lethargy(Final) - 02/28/22 Discharge Disposition: A-Transfer VNA/Home Health Attending Physician: Skye Jensen MD Admitting Physician: Ky Mclean MD Referring Physician: Not on Staff, Referring [...] opioid drug. Start Date: 02/18/22 Status: Ordered Augmentin 875 mg-125 mg oral tablet 1 tablet, By Mouth, Every 12 hours, for 10 days, # 20 tablet, 0 Refills, Acute 03/13/22 12:38:00 EST, 03/03/22 12:38:00 EST, Tablet, [facility], Partial fill upon patient request if theprescription is for a schedule II opioid drug. Start Date: 03/03/22 Stop Date: 03/13/22 Status: Ordered Docusate/Senna Tablet 1 tablet, By [...] for Microbiology Reports Name Date Blood Culture 02/27/22 Blood Culture #2 02/27/22 Microbiology Reports TEST:Blood Culture, Second Order STATUS:Unauthenticated BODY SITE: SOURCE:Blood COLLECTED DATE/TIME:02/27/22 9:34 PM Blood Culture, Second Order SPECIMEN DESCRIPTION : BLOOD NO SITE SPECIAL REQUESTS : NONE CULTURE : NO GROWTH 4 DAYS REPORT STATUS : PRELIMINARY REPORT TEST:Blood Culture STATUS:Unauthenticated BODY SITE: SOURCE:Blood COLLECTED DATE/TIME:02/27/22 9:26 PM Blood Culture SPECIMEN DESCRIPTION : BLOOD RAC SPECIAL REQUESTS : NONE CULTURE : NO GROWTH 4 DAYS REPORT STATUS : PRELIMINARY REPORT Radiology Reports * Exam Date Time Procedure Performing Provider Status 03/02/22 11:01 AM Modified Barium Swal low W/ Speech (Radio Grzejka , Evelina; Auth (Verified) Notes: (Modified Barium Swallow W/ Speech (Radio) Reason For Exam: Aspiration;Aspiration RESULT: Modified Barium Swallow W/ Speech (Radio Modified Barium Swallow WITH SPEECH PATHOLOGY CLINICAL INDICATION: Reason: Aspiration; Clinical Question(s): Aspiration; Order Comment: Modified Barium Swallow W Speech (Radiology) Prep COMPARISON: None Technique: Lateral cine-videofluoroscopy was performed during the oral administration of various barium containing consistencies, as described below. Fluoroscopic imaging provided by Wilbert Baxter PA-C. Pulsed fluoroscopy time: 2.7 minutes Dose Area Product (DAP): 489.4 uGy*m2 Findings: Applesauce, pudding, nectar, mixed fruit/juice, and thin barium consistencies were tested. The oral and pharyngeal phases of swallowing were without evidence of laryngeal penetration or subglottic aspiration. True lateral visualization of patient's cervical anatomy is somewhat limited by torticollis. IMPRESSION: No laryngeal penetration or subglottic aspiration. Findings as described. For dietary concerns or recommendations, please refer to speech pathologist report. By undersigning and finalizing the report, the attending radiologist confirms he/she has personallyreviewed and interpreted the images and agrees with the description of the findings. I have personally reviewed the images and I agree with this report. WSN: [id number] Ordering Physician: Janessa Chavez Dictated By: Kevin De Guzman Dictated Date/Time: 03/02/22 12:51 p Reviewed By: Sabiha Reyes MD Signed By: Sabiha Reyes MD Signed Date/Time: 03/02/22 12:56 pm Transcribed By: DOMINIC Transcribed Date/Time: 03/02/22 10:55 am * Exam Date Time Procedure Performing Provider Status 03/01/22 9:[address] Head/Brain W/O Contrast Judy Sampson; Auth (Verified) Notes: (CT Head/Brain W/O Contrast) Reason For Exam: altered mental status, less verbal, hx astrocytoma s/p resection w known seizures;Aphasia RESULT: CT Head/Brain W/O Contrast CT Head/Brain W/O Contrast INDICATION: Aphasia; altered mental status, less verbal, hx astrocytoma s p resection w known seizures; Clinical Question(s): Infarction. TECHNIQUE: Noncontrast head CT using axial technique and reconstructed in axial and coronal plane. Iterative reconstruction techniques are used to optimize radiation dose and image quality. COMPARISON: None. FINDINGS: Suboptimal exam due to motion degradation and streak artifact from dense calvarium/surgical material. BRAIN and EXTRA-AXIAL SPACES: Subcortical hypodensity in the right anterior frontal lobe with adjacent surgical material, likely representing the resection cavity. There is also ill- defined low-attenuation involving the anterior left frontal lobe suggestive of vasogenic edema with preservation of the corey-white matter differentiation. Area of encephalomalacia involving the left basal ganglia. Ex vacuo dilation of the anterior right frontal horn of the right lateral ventricle. There is moderate dilation of the anterior horn of the left lateral ventricle, possibly also ex vacuo dilation. No evidence of intraparenchymal hemorrhage or loss of corey-white differentiation. Patent basal cisterns. Posterior fossa is unremarkable. No extra-axial collection no hemorrhage. CALVARIUM, SKULL BASE AND SOFT TISSUES: No fractures or suspicious bony lesions. Prior right frontal craniotomy. The paranasal sinuses and mastoid air cells are clear. Visualized orbits and globes are intact. The extracranial soft tissues are unremarkable. IMPRESSION: 1. Postsurgical changes of the anterior right frontal lobe with associated encephalomalacia and ex vacuo dilation of the right lateral ventricle anterior horn. 2. Atypical rounded dilation in the anterior horn of the left lateral ventricle with adjacent edemawithin the left frontal lobe. The appearance is slightly more than would be expected for ex vacuo dilation. Low-attenuation within left frontal lobe may be related to vasogenic edema versus transependymal flow of CSF or potentially developing areas of encephalomalacia. Lack of comparison images makes determination difficult. Further assessment with MRI of the brain with and without contrast is recommended. A critical result message (Yellow) has been communicated via the [employer] system on 03/01/2022 10:14 AM, Message ID [id number]. I have personally reviewed the images and I agree with this report. WSN: [id number] Ordering Physician: Janessa Chavez Dictated By: Cathi Alanis DO Dictated Date/Time: 03/01/22 10:14 a Reviewed By: Domo Mcintyre MD Signed By: Domo Mcintyre MD Signed Date/Time: 03/01/22 10:19 am Transcribed By: DOMINIC Transcribed Date/Time: 03/01/22 9:47 am * Exam Date Time Procedure Performing Provider Status 02/28/22 5:15 PM US Doppler Ext Upper Venous Left Arianne Lamas (Verified) Notes: (US Doppler Ext Upper Venous Left) Reason For Exam: LUE swelling, doppler to r/o dvt;Swelling Extremities RESULT: US Doppler Ext Upper Venous Left US Doppler Ext Upper Venous Left Reason: Swelling Extremities; LUE swelling, doppler to r o dvt; Clinical Question(s): Thrombosis COMPARISON: None. IMAGING TECHNIQUE: Ultrasound examination of the upper extremity deep venous system was performed using grayscale, color, and spectral wave analysis including response to compression. Assessment includes the contralateral jugular and subclavian vein. FINDINGS: Internal jugular vein: Patent. No thrombosis. Subclavian vein: Patent. No thrombosis. Axillary vein: Patent. No thrombosis. Brachial vein: Patent. No thrombosis. Basilic vein: Patent. No thrombosis. Cephalic vein: Patent. No thrombosis. Contralateral internal jugular vein: Limited due to patient head position. Patent. No thrombosis. Contralateral subclavian vein: Limited due to patient head position. Patent. No thrombosis. IMPRESSION: No acute deep venous thrombosis in the LEFT upper extremity deep veins. WSN: [id number] Ordering Physician: Janessa Chavez Dictated By: Luh Estevez MD Dictated Date/Time: 02/28/22 6:55 pm Reviewed By: Luh Estevez MD Signed By: Luh Estevez MD Signed Date/Time: 02/28/22 6:55 pm Transcribed By: DOMINIC Transcribed Date/Time: 02/28/22 6:53 pm * Exam Date Time Procedure Performing Provider Status 02/28/22 1:[address] Abd/Pelvis W/ IV Contrast Only Dwayne Urias; Auth (Verified) Notes: (CT Abd/Pelvis W/ IV Contrast Only) Reason For Exam: LLQ abdominal pain;Other: RESULT: CT Abd/Pelvis W/ IV Contrast Only CT Chest W/ Contrast, CT Abd/Pelvis W/ IV Contrast Only INDICATION: Hx of Present Illness: pt here from home with ams. pt was recently d c, dx flu. per family pt is altered, low 02 was on home cpap upon ems arrival, placed on 2L sat 99%. pt somnolent o arrival to ed; Reason: Other:; Pulmonary Lesion; Clinical Question(s): Interstitial Alveolar Infiltration TECHNIQUE: Helical CT scan of the chest, abdomen, and pelvis with IV contrast, formatted in 3 planes. 75 cc of Omnipaque 300 was administered intravenously. This study was performed without oral contrast. Weight-based protocol was performed using automatic exposure control. CTDIvol Body: 9.60 mGy, DLP Body: 677 mGy*cm. COMPARISON: None. FINDINGS: Recruiter Account Manager view findings, lines and tubes: None. Trachea and airways: Narrowing of the right lower lobe bronchi in the area of atelectatic lung. Otherwise, patent. Lungs and pleura: Evaluation limited due to moderate motion artifact. Minimal groundglass opacitieswithin the right upper lobe posterior segment. Patchy opacities in the left lower lobe superior segment with associated bronchial wall thickening. Almost complete collapse of the right lower lobe. Noeffusion or pneumothorax. Mediastinum and maykel: No mass or hematoma. No mediastinal or hilar lymphadenopathy. No esophageal abnormality. No thyroid nodule large enough to warrant follow up. Heart: Heart is normal in size. No pericardial effusion. Moderate coronary artery calcification. Aorta: Mild vascular calcification but no aneurysm. Pulmonary arteries: Normal caliber. Severe respiratory motion artifact decreases sensitivity, but there is no evidence of pulmonary embolism on this study performed without angiographic technique. Chest wall soft tissues: No acute abnormality. Diaphragm: Intact. Liver: Normal in attenuation and morphology. No suspicious lesion. Gallbladder: No CT evidence of gallbladder pathology. Bile ducts: No biliary ductal dilation. Spleen: Normal in size. Pancreas: No suspicious lesion or ductal dilatation. Adrenal glands: No nodule. Kidneys and ureters: No hydronephrosis, stone, or suspicious lesion. Small hypodensities that are too small to characterize are noted, requiring no dedicated follow up. Bladder: Mild diffuse bladder wall thickening Reproductive organs: Multilobulated uterus. Low-attenuation endometrial thickening up to 0.9 cm. Subtle 9 mm ovoid nodular focus in the endometrial cavity (series 208 image 75). There is a prominent peripherally calcified 4.6 cm mass in the left uterine fundus, likely a calcified fibroid. Stomach, small bowel, and large bowel: Unremarkable small and large bowel. Appendix: No evidence of acute appendicitis. Peritoneum and retroperitoneum: No ascites or pneumoperitoneum. No omental or mesenteric lesions. Lymph nodes: No enlarged lymph nodes. Blood vessels: Moderate atherosclerotic vascular calcification. No aortic aneurysm. No evidence of venous thrombosis. Abdominal and pelvic wall soft tissues: Small fat-containing umbilical hernia. Bones: No acute abnormality. IMPRESSION: 1. Almost complete collapse of the right lower lobe with scattered groundglass and patchy opacitieselsewhere in the lungs is concerning for pneumonia in the appropriate clinical setting. Follow-up to resolution is recommended. 2. Mild diffuse bladder wall thickening could represent acute cystitis. Recommend correlation with urinalysis. 3. Multilobulated uterus, likely representing fibroids. The endometrium is low- attenuation and thickened up to 0.9 cm. Possible 9 mm nodular focus in the endometrium that could represent a polyp or other mass. Gynecological consultation and further evaluation with a nonemergent pelvic ultrasound should be considered. I have personally reviewed the images and I agree with this report. WSN: [id number] Ordering Physician: Jesús Sutton Dictated By: Ra[Radiology] Azael DSOUZA Dictated Date/Time: 02/28/22 7:33 am Reviewed By: Tony Gavin MD Signed By: Tony Gavin MD Signed Date/Time: 02/28/22 7:38 am Transcribed By: DOMINIC Transcribed Date/Time: 02/28/22 1:49 am * Exam Date Time Procedure Performing Provider Status 02/28/22 1:[address] Chest W/ Contrast Dwayne Andersen; [place] (Verified) Notes: (CT Chest W/ Contrast) Reason For Exam: Pulmonary Lesion;Other: RESULT: CT Chest W/ Contrast CT Chest W/ Contrast, CT Abd/Pelvis W/ IV Contrast Only INDICATION: Hx of Present Illness: pt here from home with ams. pt was recently d c, dx flu. per family pt is altered, low 02 was on home cpap upon ems arrival, placed on 2L sat 99%. pt somnolent o arrival to ed; Reason: Other:; Pulmonary Lesion; Clinical Question(s): Interstitial Alveolar Infiltration TECHNIQUE: Helical CT scan of the chest, abdomen, and pelvis with IV contrast, formatted in 3 planes. 75 cc of Omnipaque 300 was administered intravenously. This study was performed without oral contrast. Weight-based protocol was performed using automatic exposure control. CTDIvol Body: 9.60 mGy, DLP Body: 677 mGy*cm. COMPARISON: None. FINDINGS: Recruiter Account Manager view findings, lines and tubes: None. Trachea and airways: Narrowing of the right lower lobe bronchi in the area of atelectatic lung. Otherwise, patent. Lungs and pleura: Evaluation limited due to moderate motion artifact. Minimal groundglass opacitieswithin the right upper lobe posterior segment. Patchy opacities in the left lower lobe superior segment with associated bronchial wall thickening. Almost complete collapse of the right lower lobe. Noeffusion or pneumothorax. Mediastinum and maykel: No mass or hematoma. No mediastinal or hilar lymphadenopathy. No esophageal abnormality. No thyroid nodule large enough to warrant follow up. Heart: Heart is normal in size. No pericardial effusion. Moderate coronary artery calcification. Aorta: Mild vascular calcification but no aneurysm. Pulmonary arteries: Normal caliber. Severe respiratory motion artifact decreases sensitivity, but there is no evidence of pulmonary embolism on this study performed without angiographic technique. Chest wall soft tissues: No acute abnormality. Diaphragm: Intact. Liver: Normal in attenuation and morphology. No suspicious lesion. Gallbladder: No CT evidence of gallbladder pathology. Bile ducts: No biliary ductal dilation. Spleen: Normal in size. Pancreas: No suspicious lesion or ductal dilatation. Adrenal glands: No nodule. Kidneys and ureters: No hydronephrosis, stone, or suspicious lesion. Small hypodensities that are too small to characterize are noted, requiring no dedicated follow up. Bladder: Mild diffuse bladder wall thickening Reproductive organs: Multilobulated uterus. Low-attenuation endometrial thickening up to 0.9 cm. Subtle 9 mm ovoid nodular focus in the endometrial cavity (series 208 image 75). There is a prominent peripherally calcified 4.6 cm mass in the left uterine fundus, likely a calcified fibroid. Stomach, small bowel, and large bowel: Unremarkable small and large bowel. Appendix: No evidence of acute appendicitis. Peritoneum and retroperitoneum: No ascites or pneumoperitoneum. No omental or mesenteric lesions. Lymph nodes: No enlarged lymph nodes. Blood vessels: Moderate atherosclerotic vascular calcification. No aortic aneurysm. No evidence of venous thrombosis. Abdominal and pelvic wall soft tissues: Small fat-containing umbilical hernia. Bones: No acute abnormality. IMPRESSION: 1. Almost complete collapse of the right lower lobe with scattered groundglass and patchy opacitieselsewhere in the lungs is concerning for pneumonia in the appropriate clinical setting. Follow-up to resolution is recommended. 2. Mild diffuse bladder wall thickening could represent acute cystitis. Recommend correlation with urinalysis. 3. Multilobulated uterus, likely representing fibroids. The endometrium is low- attenuation and thickened up to 0.9 cm. Possible 9 mm nodular focus in the endometrium that could represent a polyp or other mass. Gynecological consultation and further evaluation with a nonemergent pelvic ultrasound should be considered. I have personally reviewed the images and I agree with this report. WSN: [id number] Ordering Physician: Jesús Sutton Dictated By: Ra[Radiology] Azael DSOUZA Dictated Date/Time: 02/28/22 7:33 am Reviewed By: Tony Gavin MD Signed By: Tony Gavin MD Signed Date/Time: 02/28/22 7:38 am Transcribed By: DOMINIC Transcribed Date/Time: 02/28/22 1:49 am * Exam Date Time Procedure Performing Provider Status 02/27/22 10:01 PM Chest Portable Lulu Velez; [place] ( Verified) Notes: (Chest Portable) Reason For Exam: Cough RESULT: Chest Portable Chest Portable Reason: Cough; Clinical Question(s): Pneumonia COMPARISON: 02/16/2022 FINDINGS: Note that the right upper hemithorax is obscured by patient's chin. LINES AND TUBES: None. LUNGS AND PLEURA: Low lung volumes. Lungs are otherwise clear with no consolidation. No pleural effusion. No pneumothorax. HEART, MEDIASTINUM AND MAYKEL: Heart is normal in size. Normal mediastinal and hilar contour. BONES AND SOFT TISSUES: No acute abnormality. IMPRESSION: No acute abnormality. I have personally reviewed the images and I agree with this report. WSN: [id number] Ordering Physician: Nani Villegas Dictated By: Deshaun Lin DO Dictated Date/Time: 02/27/22 10:09 p Reviewed By: Rey Bustos MD Signed By: Rey Bustos MD Signed Date/Time: 02/27/22 10:14 pm Transcribed By: DOMINIC Transcribed Date/Time: 02/27/22 10:06 pm Vital Signs Most recent to oldest [Reference Range]: 1 2 3 Oxygen Saturation [94-100 %] 97 % (03/03/22 12:57 PM) 100 % (03/03/22 5:29 AM) 98 % (03/02/22 7:49 PM) Pulse Rate [55-90 bpm] 81 bpm (03/03/22 12:57 PM) 85 bpm (03/03/22 5:29 AM) 70 bpm (03/02/22 7:49 PM) Blood Pressure [90-138/55-84 mm Hg] 149/77mm Hg *H* (03/03/22 12:57 PM) 142/65mm Hg *H* (03/03/22 5:29 AM) 146/55mm Hg *H* (03/02/22 7:49 PM) Respiratory Rate [16-30 br/min] 18 br/min (03/03/22 12:57 PM) 20 br/min (03/03/22 5:29 AM) 20 br/min (03/02/22 7:49 PM) Temperature [96.8-100.4 DegF] 98.1 DegF (03/03/22 12:57 PM) 99 DegF (03/03/22 5:29 AM) 98.3 DegF (03/02/22 7:49 PM) Liters per Minute 2 L/min (03/03/22 5:29 AM) 2 L/min (02/28/22 10:38 PM) 2 L/min (02/28/22 8:00 PM) Mode of Delivery (Oxygen) Room air (03/03/22 12:57 PM) CPAP (03/03/22 5:29 AM) Room air (03/02/22 7:49 PM) Blood pressure sites Arm, left (03/03/22 12:57 PM) Arm, left (03/03/22 5:29 AM) Arm, left (03/02/22 7:49 PM) Temperature Route Oral (03/03/22 12:57 PM) Oral (03/03/22 5:29 AM) Oral (03/02/22 7:49 PM) Admission evaluation note * Erika DSOUZA, [place]: MODIFY, PERFORM Event Display: Admission Note Authored Date: [id number] Patient: ??ZAID VORA ? Age:??66 Years?Sex:??Female?:??1955?? Chief Complaint/Reason for Consultation pt here from home with ams. pt was recently d/c, dx flu. per family pt is altered, low 02 was on home cpap upon ems arrival, placed on 2L sat 99%. pt somnolent o arrival to ed. 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,dementia, who??is admitted to the hospital today for sepsis in the setting of pneumonia Patient is poor historian, reported from her family that the patient has been??more lethargic,??less talkative,??they also noticed that her??oxygen??sats??in the high 80s, Notably the patient??had recent complicated??health course??including prolonged??admission??for respiratory failure requiring intubation at [facility] for 27 days,??and then in late January she was admitted for??influenza, On presentation she was febrile, tachycardic, blood work is unremarkable,??CT chest with Almost complete collapse of the right lower lobe with scattered groundglass and patchy opacities Review of Systems Not obtainable due to??baseline dementia and??encephalopathy Objective Hemodynamically stable ?? Physical Exam Constitutional: Somnolent, in no acute distress. Head EENT: Extraocular muscle movement intact.??Moist mucous membranes.?? Neck: Supple. No JVD. Respiratory: Bibasilar??crackles. No use of accessory muscles. Cardiovascular: S1S2 regular. No murmurs, rubs or gallops. Gastrointestinal: Abdomen soft, non-tender, non-distended. Normal bowel sounds. Genitourinary: No CVA tenderness. Extremities: No lower extremity pitting??edema. No cyanosis or clubbing. Neurologic: Somnolent. No focal neurological deficits. Skin: No rash. Psychiatric: Normal mood and affect Assessment/Plan Diagnoses ? Assessment:??66-year-old female admitted for sepsis in the setting of pneumonia ?? Sepsis Right lower lobe pneumonia Right lower lobe collapse Presents with??lethargic,??found to be tachycardic,??febrile,??with CT suggestive??of??right lower lobe pneumonia and??almost total collapse, This seems to me possible aspiration??pneumonia, mucus plug ? Will continue Zosyn for now She was given already 2 L of fluids Venous lactate level??is 2 ? Dysphagia - Patient on a pureed diet at home with honey thickened liquids.? Anaplastic astrocytoma Seizure disorder She is followed with serial MRIs every 6 months for her history of anaplastic astrocytoma. -continue ??Keppra ?? History of CVA HLD History of left lower extremity DVT - Xarelto - Atorvastatin ? Hypertension. amlodipine and hydrochlorothiazide were discontinued in recent admission ?? Progressive Torticollis:?? Refractory to Botox injections. Recent admission to [facility] - no surgical intervention recommended. - Outpatient f/u ?? CODE STATUS is DNR/DNI as per [facility] for DVT prophylaxis, on Xarelto ?? Discharge Planning:? Histories Past Medical History/Problem List Active Problems??(5) Anaplastic astrocytoma History of CVA with residual deficit Left-sided weakness Seizure disorder Torticollis ? Past Surgical History Status post craniotomy ? Social History ? Family History No family history recorded. ? Medications Home Medications Acetaminophen (acetaminophen 325 mg oral tablet)?650?Milligram?By Mouth?Every 4 hours?as needed?Temperature Greater than 100.5?Pain , Mild Aspirin (Aspirin Tablet)?81?Milligram?By Mouth?Daily Atorvastatin (Lipitor 40 mg oral tablet)?1?tab(s)?40?Milligram?By Mouth?Daily in AM Docusate-Senna (Docusate/Senna Tablet)?1?tab(s)?By Mouth?2 times a day?as needed?Constipation levETIRAcetam (Keppra 500 mg oral tablet)?2?tab(s)?1,000?Milligram?By Mouth?2 times a day Melatonin (melatonin 3 mg oral tablet)?3?Milligram?By Mouth?Daily at bedtime?as needed?Insomnia Polyethylene Glycol 3350 (MiraLax Powder)?1?pack/packet?17?gram?By Mouth?Daily rivaroxaban (rivaroxaban 20 mg oral tablet)?20?Milligram?By Mouth?Daily in AM ? Inpatient Medications Medications (9) Active SCHEDULED: (2) NaCl 0.9% Flush 3ml (NaCL 0.9% Flush) ??3 mL, IV Push, Every 8 hours Piperacillin/Tazobactam 3.375 Gm Inj (Zosyn Extended IVPB) ??3.375 Gm, IVPB, Every 8 hours CONTINUOUS: (0) PRN: (7) Acetaminophen 325 mg Tablet (Acetaminophen Tablet) ??650 mg, By Mouth, Every 4 hours Dextromethorphan-Guaifenesin 20 mg-200 mg/10 mL Liqu UD (Robitussin DM Liquid) ??10 mL, By Mouth, Every 4 hours Melatonin 3 mg Tablet (Melatonin Tablet) ??3 mg, By Mouth, Daily at bedtime NaCl 0.9% Flush 3ml (NaCL 0.9% Flush) ??3 mL, IV Push, Every 8 hours Polyethylene Glycol 17 Gm Powder (MiraLax Powder) ??17 Gm 1 pack/packet, By Mouth, Daily Senna 8.6 mg / Docusate 50 mg tablet (Docusate/Senna Tablet) ??1 tablet, By Mouth, 2 times a day Simethicone 80 mg Chewable Tablet (Simethicone Tablet) ??80 mg, Chew, 3 times a day ? Hospital Progress note * Tre Mayer RN: PERFORM, SIGN, VERIFY Event Display: Progress Note Hospital Authored Date: Patient: ZAID VORA Age: 66 years Sex: Female : 1955 Associated Diagnoses: None Author: Tre Mayer RN Findings Narrative/Incidental Patient being discharged home with services, [facility] transportation scheduled for 1400 today. Report given to S3 RN. Pt awake and alert, no signs of distress, denies pain. Family at bedside. Left S64 in bed.. Discharge Information Case Management Discharge Plan : Case Management Discharge Plan Data 03/03/2022 10:44 EST Discharge Level of Care at Discharge Homehealth/VNA Discharge VNA/Hospice/Home Care [facility] Care Discharge Transportation Arranged [facility] [address] [place] [address] Discharge Arranged Transport Date/Time 03/03/2022 14:00 Mode of Transportation Arranged Ambulance Name of Agency #1 [facility] Desktop Specialist # Service Categories #1 Occupational Therapy, Physical Therapy, [facility] Service Comments #1 You are being discharged home with resumption of care through [facility]. They are notified of your discharge today. If you do not hear from them, please call the agency at [phone] Pulmonary Rehab Discharge : Pulmonary Rehab Discharge Status 03/03/2022 3:15 EST CPAP/BiPAP Mask Type Full CPAP/BiPAP Mask Size Small 03/02/2022 23:20 EST CPAP/BiPAP Mask Type Full CPAP/BiPAP Mask Size Small 03/02/2022 3:20 EST CPAP/BiPAP Mask Type Full CPAP/BiPAP Mask Size Small 03/01/2022 23:02 EST CPAP/BiPAP Mask Type Full CPAP/BiPAP Mask Size Small 03/01/2022 1:06 EST CPAP/BiPAP Mask Type Full CPAP/BiPAP Mask Size Small 02/28/2022 22:19 EST CPAP/BiPAP Mask Type Full CPAP/BiPAP Mask Size Small Rehabilitation Discharge : Rehab Discharge Index 03/02/2022 13:24 EST Full chart review completed Yes Hospital course Hospital course 03/02/2022 9:13 EST Comments on treatment indicated 66yo F with recent admit for flu presents with sepsis in the setting of PNA. Full chart review completed Yes Hospital course CT chest with Almost complete collapse of the right lower lobe with scattered groundglass and patchy opacities Other findings Per comment: 03/01/2022 9:38 EST Comments on treatment indicated hx of dysphagia unclear baseline Full chart review completed Yes Hospital course Hospital course * Nicole Real: PERFORM, MODIFY, SIGN, VERIFY Event Display: Progress Note Hospital Authored Date: [id number] Patient: ZAID VORA Age: 66 years Sex: Female : 1955 Associated Diagnoses: None Author: Nicole Real Findings Problem Related to Alteration in Immunologic : Alteration in Immunologic Function/new 03/02/2022 12:00 EST Alteration Immunologic Status Related to Sepsis Goals & Outcomes, Immunologic Pt will maintain/resume normal fluid/electrolyte balance, Pt willmaintain intact skin integrity, Pt will not develop complications r/t immobility, Inflammatory/infectious process will resolve Interventions, Immunologic Maintain patent IV access, Maintain and monitor nutritional intake, Assess skin integrity BH Goals/Interventions, Immunologic Yes Immunologic, Problem Start 02/28/2022 23:00 Reviewed Plan with, Immunologic Patient Patient Progression, Immunologic Status Pt progressing according to plan . Alteration in Respiratory Function (new) : Alteration in Respiratory Function/new 03/02/2022 12:00 EST Alteration in Resp Status Related to Pneumonia Goals & Outcomes, Respiratory Pt will maintain/resume baseline physical assessment, Pt will notdevelop complications r/t mechanical ventilation, Pt will maintain adequate nutritional intake, Pt will maintain/resume normal fluid/electrolyte balance, Pt will not develop complications r/t immobility Interventions, Respiratory Assess/monitor tolerance to IV infusions; verify rate/dose, Assess for and report S&S of respiratory distress, Position for comfort & optimal oxygenation BH Goals/Interventions, Respiratory Yes Respiratory, Problem Start 02/28/2022 23:00 Reviewed Plan with, Respiratory Patient Patient Progression, Respiratory Patient progressing according to plan . Narrative/Incidental Pt alert and oriented x3, no pain present. Pt is lethargic. Pt has R forearm IV access, NACL running at 75ml/hr. Pt has left sided weakness. Pt skin is intact. Pt went down for a barium swallow this morning. Pt got antibiotics this afternoon. Pt took medications crushed in pudding. Pt had and family at bedside all day. Call ortega within reach, bed alarm exit on, all needs met at this time.Pt is safe and comfortable. . Discharge Information Pulmonary Rehab Discharge : Pulmonary Rehab Discharge Status 03/02/2022 3:20 EST CPAP/BiPAP Mask Type Full CPAP/BiPAP Mask Size Small 03/01/2022 23:02 EST CPAP/BiPAP Mask Type Full CPAP/BiPAP Mask Size Small 03/01/2022 1:06 EST CPAP/BiPAP Mask Type Full CPAP/BiPAP Mask Size Small 02/28/2022 22:19 EST CPAP/BiPAP Mask Type Full CPAP/BiPAP Mask Size Small Rehabilitation Discharge : Rehab Discharge Index 03/02/2022 13:24 EST Full chart review completed Yes Hospital course Hospital course 03/02/2022 9:13 EST Comments on treatment indicated 66yo F with recent admit for flu presents with sepsis in the setting of PNA. Full chart review completed Yes Hospital course CT chest with Almost complete collapse of the right lower lobe with scattered groundglass and patchy opacities Other findings Per comment: 03/01/2022 9:38 EST Comments on treatment indicated hx of dysphagia unclear baseline Full chart review completed Yes Hospital course Hospital course * Scott DSOUZA, Janessa: PERFORM Event Display: Progress Note Hospital Authored Date: Patient: ??ZAID VORA ? Age:??66 Years?Sex:??Female?:??1955?? Subjective No acute complaints, as with yesterday she nods yes or no to questions - no acute complaints including chest pain, shortness of breath, palpitations, abdominal pain, nausea, vomiting, fevers or chills. Dw at bedside - he reports she is more alert than on admission Review of Systems Unable to obtain full ros due to ams Allergies Allergies ?(Active and Proposed Allergies Only) Pollen? (Severity: Unknown severity, Onset: Unknown) Kiwi? (Severity: Unknown severity, Onset: Unknown) Avocado? (Severity: Unknown severity, Onset: Unknown) Apples? (Severity: Unknown severity, Onset: Unknown) ? 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 Past Surgical History No surgery history documented. ? Social History No social history documented. ? Objective Vital Signs?? Temperature: 97.4 DegF (03/02/22 05:00:00) Temperature Route: Axillary (03/02/22 05:00:00) Pulse Rate: 75 bpm (03/02/22 05:00:00) Respiratory Rate: 20 br/min (03/02/22 05:00:00) Systolic Blood Pressure:??154 mm Hg??High (03/02/22 05:00:00) Diastolic Blood Pressure: 82 mm Hg (03/02/22 05:00:00) Blood pressure sites: Arm, right (03/02/22 05:00:00) Mean Arterial Pressure: 98 mm Hg (03/01/22 15:09:00) Pulse Pressure: 72 mm Hg (03/02/22 05:00:00) Oxygen Saturation: 100 % (03/02/22 05:00:00) Mode of Delivery (Oxygen): BiPAP (03/02/22 05:00:00) Early Warning Score: 2 (03/02/22 05:45:57) ? Intake/Output? 02/28 01:57 03/02 07:00 03/01 07:00 02/28 07:00 02/27 07:00 ?? 03/02 11:48 03/02 11:48 03/02 06:59 03/01 06:59 02/28 06:59 Intake ?850 ?100 ?650 ?100 ?0 Output ? 1450 ?0 ? 1450 ?0 ?0 Net Total ? -600 ?100 ? -800 ?100 ?0 ? Urine Count ?2 ?0 ?0 ?2 ?0 Diaper Count ?1 ?0 ?1 ?0 ?0 ? Mobility & Ambulation Level Mobility & Ambulation Level Activity Assistance: Maximum assistance, Two person assistance (03/01/22) Activity Status ADL: Complete bedrest (03/01/22) Ambulatory devices needed: None (03/01/22) Repositioning: Total care (03/01/22) ? Physical Exam Gen: NAD, appears comfortable CV: RRR, normal S1, S2, no m/r/g Resp: Bibasilar crackles, no wheezes or rhonchi heard Abd: soft, NT, ND, +BS LE: no edema Neuro: grossly intact, spontaneous movement of extremities, unable to perform full neuro due to ams _ Home Medications Acetaminophen (acetaminophen 325 mg oral tablet)?650?Milligram?By Mouth?Every 4 hours?as needed?Temperature Greater than 100.5?Pain , Mild Aspirin (Aspirin Tablet)?81?Milligram?By Mouth?Daily Atorvastatin (Lipitor 40 mg oral tablet)?1?tab(s)?40?Milligram?By Mouth?Daily in AM Docusate-Senna (Docusate/Senna Tablet)?1?tab(s)?By Mouth?2 times a day?as needed?Constipation levETIRAcetam (Keppra 500 mg oral tablet)?2?tab(s)?1,000?Milligram?By Mouth?2 times a day Melatonin (melatonin 3 mg oral tablet)?3?Milligram?By Mouth?Daily at bedtime?as needed?Insomnia Polyethylene Glycol 3350 (MiraLax Powder)?1?pack/packet?17?gram?By Mouth?Daily rivaroxaban (rivaroxaban 20 mg oral tablet)?20?Milligram?By Mouth?Daily in AM ? Inpatient Medications Medications (14) Active SCHEDULED: (6) Ampicillin/Sulbactam 3 Gm Inj (Unasyn IVPB) ??3 Gm, IVPB, Every 6 hours Aspirin 81 mg Chew Tablet (Aspirin Tablet) ??81 mg, By Mouth, Daily Atorvastatin 40 mg Tablet (Lipitor 40 mg oral tablet) ??40 mg, By Mouth, Daily in AM Levetiracetam 100mg/ml IVPB (Keppra IVPB) ??1,000 mg, IVPB, Every 12 hours NaCl 0.9% Flush 3ml (NaCL 0.9% Flush) ??3 mL, IV Push, Every 8 hours Rivaroxaban 20 mg Tablet (rivaroxaban 20 mg oral tablet) ??20 mg, By Mouth, Daily at supper CONTINUOUS: (1) NaCL 0.9% (1000 mL) Cont IV 1,000 mL (0.9% NaCL 1,000 mL) ??1,000 mL, IV Infusion, 75 mL/hr PRN: (7) Acetaminophen 325 mg Tablet (Acetaminophen Tablet) ??650 mg, By Mouth, Every 4 hours Dextromethorphan-Guaifenesin 20 mg-200 mg/10 mL Liqu UD (Robitussin DM Liquid) ??10 mL, By Mouth, Every 4 hours Melatonin 3 mg Tablet (Melatonin Tablet) ??3 mg, By Mouth, Daily at bedtime NaCl 0.9% Flush 3ml (NaCL 0.9% Flush) ??3 mL, IV Push, Every 8 hours Polyethylene Glycol 17 Gm Powder (MiraLax Powder) ??17 Gm 1 pack/packet, By Mouth, Daily Senna 8.6 mg / Docusate 50 mg tablet (Docusate/Senna Tablet) ??1 tablet, By Mouth, 2 times a day Simethicone 80 mg Chewable Tablet (Simethicone Tablet) ??80 mg, Chew, 3 times a day ? 72 Hour Antibiotic History Active Antibiotics Calendar Day Last Administered First Administered Ampicillin-Sulbactam??3 Gm, 100 mL/hr, IVPB, Every 6 hours ?2 03/02/2022 06:41 03/01/2022 18:12 ? Stopped Antibiotics Stop Date/Time Last Administered First Administered Piperacillin-Tazobactam??3.375 Gm, 25 mL/hr, IVPB, Every 8 hours 03/01/2022 16:25 03/01/2022 12:32 02/28/2022 04:26 Piperacillin-Tazobactam??3.375 Gm, 25 mL/hr, IVPB, Once 02/27/2022 21:51 02/27/2022 21:49 02/27/2022 21:49 Vancomycin??1 Gm, 250 mL/hr, IVPB, Once 02/27/2022 21:51 02/27/2022 21:49 02/27/2022 21:49 ? Results Recent Labs BLOOD COUNT & DIFF WBC 7.0 k/mm3 ()?? 03/01/2022 08:34 RBC 4.55 m/mm3 ()?? 03/01/2022 08:34 Hgb 11.2 Gm/dL (Low)?? 03/01/2022 08:34 Hct 38.6 % ()?? 03/01/2022 08:34 MCV 84.8 femtoliters ()?? 03/01/2022 08:34 MCH 24.6 pg (Low)?? 03/01/2022 08:34 MCHC 29.0 g/dL (Low)?? 03/01/2022 08:34 Platelet Count 315 k/mm3 ()?? 03/01/2022 08:34 RDW-SD 47.2 femtoliters (High)?? 03/01/2022 08:34 MPV 9.7 femtoliters ()?? 03/01/2022 08:34 Nucleated RBC (Automated) 0.0 #/100 WBC'S ()?? 03/01/2022 08:34 Abs. NRBC 0.0 k/mm3 ()?? 03/01/2022 08:34 Abs. Neut 4.1 k/mm3 ()?? 03/01/2022 08:34 Abs. Lymph 1.9 k/mm3 ()?? 03/01/2022 08:34 Abs. Sweet Grass 0.8 k/mm3 ()?? 03/01/2022 08:34 Abs. Eo 0.1 k/mm3 ()?? 03/01/2022 08:34 Abs. Baso 0.0 k/mm3 ()?? 03/01/2022 08:34 Neut % 59.0 % ()?? 03/01/2022 08:34 Lymph % 26.7 % ()?? 03/01/2022 08:34 Sweet Grass % 11.4 % (High)?? 03/01/2022 08:34 Eos % 2.0 % ()?? 03/01/2022 08:34 Baso % 0.6 % ()?? 03/01/2022 08:34 Imm Gran 0.3 % ()?? 03/01/2022 08:34 Abs. Imm Gran 0.0 k/mm3 ()?? 03/01/2022 08:34 ?? CHEM GENERAL Sodium 142 mmol/L ()?? 03/01/2022 08:34 Potassium 3.5 mmol/L (Low)?? 03/01/2022 08:34 Chloride 107 mmol/L ()?? 03/01/2022 08:34 Bicarbonate Level 27 mmol/L ()?? 03/01/2022 08:34 Anion Gap 8 ()?? 03/01/2022 08:34 Glucose Level 86 mg/dL ()?? 03/01/2022 08:34 BUN 7 mg/dL (Low)?? 03/01/2022 08:34 Creatinine-Blood 0.4 mg/dL (Low)?? 03/01/2022 08:34 Estimated GFR Creatinine 107 ML/MIN/1.73 M2 ()?? 03/01/2022 08:34 Calcium 9.0 mg/dL ()?? 03/01/2022 08:34 ? Abnormal Labs No lab data available. ? Urinalysis?? No qualifying data available. ?? Microbiology ?? COVID-19, RSV, and Flu A/B, Rapid PCR?? Completed?? Source: Nasal Body Site: Nose Collected Dt/Tm: 02/27/2022 23:19 Last Updated Dt/Tm: 02/28/2022 00:25 COVID-19 (2019 Novel Coronavirus) PCR?? Completed?? Source: Nasal Body Site: Nose Collected Dt/Tm: 02/28/2022 05:00 Last Updated Dt/Tm: 02/28/2022 18:26 ? Assessment/Plan 66-year-old female with a past medical history of??anaplastic astrocytoma s/p resection at [facility]2 [place] ago per daughter,??course complicated by seizure disorder on Keppra,??history of hypercapnic respiratory failure without??known cause,??attributed to??possibly torticollis,??dementia??who presents to the hospital??due to??altered mental status and fevers.?? She was admitted??and started on treatment for??pneumonia.?? She remains afebrile and hemodynamically stable at this time, mental status remains??somewhat improved,??however would expect more response given??broad-spectrum antibiotic forpneumonia and fevers. ?? Acute encephalopathy??likely secondary to??pneumonia,??possibly secondary to??vasogenic edema/dilation of left lateral ventricle??seen on CT Fevers - resolved with iv antibiotics Bilateral pneumonia, likely aspiration History of hypercapnic respiratory failure???attributed to torticollis,??no clear etiology found atthe time??2 months ago when patient was intubated ABG normal.?? Patient has been afebrile since initiation of Zosyn.?? CT??chest shows collapse of the right lower lobe of the lung.?? Discussed with parking analyst??recommends continuing chest PT, no need for bronchoscopy at this time. -Patient has been afebrile on Zosyn,??de-escalate to Unasyn -CT head obtained today given??some improvement in mental status but not significant enough given afebrile and??on antibiotics for pneumonia.?? Shows dilation of left lateral ventricle and some involvement, more than??expected for ex vacuo??given history of??astrocytoma??resection.?? Case discussedwith neurosurgery on-call,??they recommended getting MRI brain with and without contrast which is ordered. Per neurosurgery note today, no need for MRI as would not manager change and CT head changes are consistent with post op changes. They also feel pt should be managed by neurosurgeons at [facility] where she had her surgery -Will ensure no CVA on MRI brain given patient is less verbal, and will defer to outpatient neurosurgical team for further management -Pureed diet, MBS recommended by ST - results pending; of note, pt was noted to be high aspiration risk while at [facility] but family decided it would be in her best interest to try diet ?? History of anaplastic astrocytoma s/p resection History of seizure disorder -Continue Keppra??IV 1 g twice daily until mental status improves, then will switch to p.o. Keppra ?? History of CVA Hyperlipidemia -Continue aspirin and atorvastatin ?? History of left lower extremity DVT -Continue rivaroxaban ?? DVT prophylaxis???Lovenox CODE STATUS???DNR/DNI?? OMN -IV antibiotics,??MRI brain??and PT eval pending, jose REBOLLAR regarding potential need for placement - dw at bedside, open to short term rehab if needed ?Order Date/Time ??Order Action ??Order Name ??Order Detail ??03/02/2022 08:37 ??Order ??Aspirin 81 mg Chew Tablet ??81 mg, By Mouth, Daily ??03/02/2022 08:37 ??Discontinue ??Aspirin 81 mg EC Tablet ??81 mg, By Mouth, Daily ? Note * Aurora Rubi RN: PERFORM Event Display: Discharge/Transfer Note Hospital Authored Date: [id number] Nursing Discharge Note Entered On: 03/03/2022 18:00 EST Performed On: 03/03/2022 17:58 EST by Aurora Rubi RN Nursing Discharge Note 2 Discharge Time : 03/03/2022 14:08 EST Discharge Level of Care at Discharge : Homehealth/VNA Discharge VNA/Hospice/Home Care(v001) : [facility] Care Patient Left Unit Via : Ambulance Patient Accompanied Off Unit with : Ambulance/Chair Van Personnel Handover Given to Transport Personnel : Yes DC Instructions Provided & Signed by Pt : Unable Patient Understands D/C Instructions : Unable Verbalized Understanding of D/C Plan By : Family Verbalization of Discharge Plan Comments : all D/C instructions reviewed with daughter at bedside, verbal understanding and teach back done Patient Instructions Discharge Signed : Yes Did Pt have Specialty Bed or Wound Vac : Yes Aurora Rubi RN - 03/03/2022 17:58 EST * Skye Jensen MD: PERFORM Event Display: Discharge/Transfer Note Hospital Authored Date: Patient: ??ZAID VORA ? Age:??66 Years?Sex:??Female?:??1955?? Patient Information Discharge Location: Primary Care Physician: Nicole Denny NP Admit Date/Time: 02/28/22 01:57 Discharge Disposition Discharge Disposition: Home with Home Health Discharge Diagnosis Altered mental state (R41.82) Altered mental state (R41.82) Fever (R50.9) Fever (R50.9) Lethargy (R53.83) Lethargy (R53.83) ?? _ Discharge Medications Acetaminophen (acetaminophen 325 mg oral tablet)?650?Milligram?By Mouth?Every 4 hours?as needed?Temperature Greater than 100.5?Pain , Mild Amoxicillin-Clavulanate (Augmentin 875 mg-125 mg oral tablet)?1?tab(s)?By Mouth?Every 12 hours?for 10?Days Aspirin (Aspirin Tablet)?81?Milligram?By Mouth?Daily Atorvastatin (Lipitor 40 mg oral tablet)?1?tab(s)?40?Milligram?By Mouth?Daily in AM Docusate-Senna (Docusate/Senna Tablet)?1?tab(s)?By Mouth?2 times a day?as needed?Constipation levETIRAcetam (Keppra 500 mg oral tablet)?2?tab(s)?1,000?Milligram?By Mouth?2 times a day Melatonin (melatonin 3 mg oral tablet)?3?Milligram?By Mouth?Daily at bedtime?as needed?Insomnia Polyethylene Glycol 3350 (MiraLax Powder)?1?pack/packet?17?gram?By Mouth?Daily rivaroxaban (rivaroxaban 20 mg oral tablet)?20?Milligram?By Mouth?Daily in AM ? Allergies Allergies ?(Active and Proposed Allergies Only) Pollen? (Severity: Unknown severity, Onset: Unknown) Kiwi? (Severity: Unknown severity, Onset: Unknown) Avocado? (Severity: Unknown severity, Onset: Unknown) Apples? (Severity: Unknown severity, Onset: Unknown) ? Hospital Course 66-year-old female with a past medical history of??anaplastic astrocytoma s/p resection at [facility]2 years ago per daughter,??course complicated by seizure disorder on Keppra,??history of hypercapnic respiratory failure without??known cause,??attributed to??possibly torticollis,??dementia??who presents to the hospital??due to??altered mental status and fevers.?? She was admitted??and started on treatment for??pneumonia.?? She remains afebrile and hemodynamically stable at this time, mental status remains??somewhat improved,??however would expect more response given??broad-spectrum antibiotic forpneumonia and fevers. ??ABG was obtained??and she was started on Zosyn.?? CT scan of the chest showed collapse of the right lower lobe of the lung, those findings were??discussed with the pulmonary team with recommendation for chest PT??and no need for bronchoscopy at this time since the patient ismaintaining oxygen saturation??above 90% on room air.?? Zosyn was then de-escalated to Unasyn.?? CT scan of the head was obtained??given some improvement in mental status but no significant enough??and she has??afebrile??with findings of??dilatation of the left lateral ventricle and some involvement more than expected for ex??vacuo given history of astrocytoma resection.?? MRI of the brain was recommended initially however??it was canceled later on??since dose CT scan changes are consistent with postoperative changes, neurosurgery team recommend??follow-up with a neurosurgeon at [facility] where she had her initial surgery.?? She can get her MRI of the brain??on outpatient basis.?? She was on pur??ed diet while inpatient??was seen by??speech therapy with recommendation for modified barium swallow,??MBS was obtained without laryngeal penetration or subglottic aspiration.?? She remained hemodynamically stable throughout hospital stay.?? Since the patient at baseline??functional status (bedbound)??she is not eligible for??SNF placement??and the daughter/and??son??were agreeable for discharge back home??with continuation of home services (PT/OT/fci). her ABx were switched to poaugmentin. ??Prescription was sent to the pharmacy. ? Acute encephalopathy??likely secondary to??pneumonia,??possibly secondary to??vasogenic edema/dilation of left lateral ventricle??seen on CT Fevers - resolved with iv antibiotics Bilateral pneumonia, likely aspiration History of hypercapnic respiratory failure???attributed to torticollis,??no clear etiology found atthe time??2 months ago when patient was intubated ABG normal.?? Patient has been afebrile since initiation of Zosyn.?? CT??chest shows collapse of the right lower lobe of the lung.?? Discussed with parking analyst??recommends continuing chest PT, no need for bronchoscopy at this time. -Patient has been afebrile on Zosyn,??de-escalate to Unasyn -CT head obtained today given??some improvement in mental status but not significant enough given afebrile and??on antibiotics for pneumonia.?? Shows dilation of left lateral ventricle and some involvement, more than??expected for ex vacuo??given history of??astrocytoma??resection.?? Case discussedwith neurosurgery on-call,??they recommended getting MRI brain with and without contrast which is ordered. Per neurosurgery note today, no need for MRI as would not manager change and CT head changes are consistent with post op changes. They also feel pt should be managed by neurosurgeons at [facility] where she had her surgery -Will ensure no CVA on MRI brain given patient is less verbal, and will defer to outpatient neurosurgical team for further management -Pureed diet, MBS recommended by ST - without laryngeal penetration or subglottic aspiration. of note, pt was noted to be high aspiration risk while at [facility] but family decided it would be in herbest interest to try diet ?? History of anaplastic astrocytoma s/p resection History of seizure disorder -Continue Keppra??IV 1 g twice daily until mental status improves, then will switch to p.o. Keppra ?? History of CVA Hyperlipidemia -Continue aspirin and atorvastatin ?? History of left lower extremity DVT -Continue rivaroxaban ?? Objective ? Vital Signs?? Temperature: 99 DegF (03/03/22 05:29:00) Temperature Route: Oral (03/03/22 05:29:00) Pulse Rate: 85 bpm (03/03/22 05:29:00) Respiratory Rate: 20 br/min (03/03/22 05:29:00) Systolic Blood Pressure:??142 mm Hg??High (03/03/22 05:29:00) Diastolic Blood Pressure: 65 mm Hg (03/03/22 05:29:00) Blood pressure sites: Arm, left (03/03/22 05:29:00) Mean Arterial Pressure: 91 mm Hg (03/03/22 05:29:00) Pulse Pressure: 77 mm Hg (03/03/22 05:29:00) Oxygen Saturation: 100 % (03/03/22 05:29:00) Liters per Minute: 2 L/min (03/03/22 05:29:00) Mode of Delivery (Oxygen): CPAP (03/03/22 05:29:00) Early Warning Score: 0 (03/03/22 12:34:20) ? . Physical Exam Gen: NAD, appears comfortable CV: RRR, normal S1, S2, no m/r/g Resp: Bibasilar crackles, no wheezes or rhonchi heard Abd: soft, NT, ND, +BS LE: no edema Neuro: grossly intact, spontaneous movement of extremities, unable to perform full neuro due to ams Consultants neurosurgery Pending Results Blood Culture ordered on 02/27/2022 Blood Culture #2 ordered on 02/27/2022 COVID-19 (2019 Novel Coronavirus) PCR ordered on 03/03/2022 Lactic Acid Level ordered on 02/27/2022 Follow-Up Appointments Added Follow Up ?Time Frame ?Comments Denisha HERNANDEZ, Nicole Martinez Patient Instructions You were admitted with??altered mental status likely secondary to community- acquired pneumonia. He was started on IV antibiotics,??you should continue??oral antibiotics after discharge??to complete the course of the treatment. Please follow-up with your primary care physician within the next 1 to 2 weeks. Home Health Face to Face *Denotes mandatory carvalho ?? *I certify that this patient is under my care and that I or an allowed non- physician working with me had a face to face encounter with the patient on this date:??03/03/2022 12:48 ?? *The encounter with the patient was in whole, or in part, for the following medical condition, which is the primary diagnosis(es) for home health care:??Altered mental state (R41.82) Altered mental state (R41.82) Fever (R50.9) Fever (R50.9) Lethargy (R53.83) Lethargy (R53.83) ? *Select the indications for the discipline/s that are being arranged for this patient. Nursing (select all that apply): [_] None [X] Medication management (reconciliation, teaching)?? [X] Chronic disease management?? [X] Wound care and treatment?? [X] Home safety evaluation [X] Administer SQ/IM/IV medications?? [_] Cath care?? [_] Drain care?? [_] Trach or GT care?? Other _ Occupation Therapy (select all that apply): [_] None [X] ADL Management [X] Fall prevention training [X] Energy conservation [_] Cognitive training Other _ Physical Therapy (select all that apply): [_] None [X] Functional mobility training [X] Home exercise program to strengthen [X] Increase ROM?? [X] Falls prevention training [_] Home maintenance program for chronic disease Other _ Speech Therapy (select all that apply): [_] None [X] Swallow evaluation and training [_] Speech and language training [_] Cognitive training to process, organize, and/or recall information Other _ ? *Homebound due to (select all that apply): [X] Inability to leave home without assistance/supervision [X] Inability to ambulate without assistance [_] Pain [_] Decreased strength and endurance [_] Unsteady gait [_] Severe SOB and fatigue [_] Impaired transfers [_] Inability to negotiate stairs [_] Limited weight bearing [_] Mental status change? *Physician Signature:??Skye Jensen MD ?? *By signing this, I certify that I have personally evaluated the patient and agree with the findings and recommendations as documented above. ? meHealthFTF Results Discharge Labs BLOOD COUNT & DIFF WBC 7.0 k/mm3 ()?? 03/01/2022 08:34 RBC 4.55 m/mm3 ()?? 03/01/2022 08:34 Hgb 11.2 Gm/dL (Low)?? 03/01/2022 08:34 Hct 38.6 % ()?? 03/01/2022 08:34 MCV 84.8 femtoliters ()?? 03/01/2022 08:34 MCH 24.6 pg (Low)?? 03/01/2022 08:34 MCHC 29.0 g/dL (Low)?? 03/01/2022 08:34 Platelet Count 315 k/mm3 ()?? 03/01/2022 08:34 RDW-SD 47.2 femtoliters (High)?? 03/01/2022 08:34 MPV 9.7 femtoliters ()?? 03/01/2022 08:34 Nucleated RBC (Automated) 0.0 #/100 WBC'S ()?? 03/01/2022 08:34 Abs. NRBC 0.0 k/mm3 ()?? 03/01/2022 08:34 Abs. Neut 4.1 k/mm3 ()?? 03/01/2022 08:34 Abs. Lymph 1.9 k/mm3 ()?? 03/01/2022 08:34 Abs. Sweet [place] 0.8 k/mm3 ()?? 03/01/2022 08:34 Abs. Eo 0.1 k/mm3 ()?? 03/01/2022 08:34 Abs. Baso 0.0 k/mm3 ()?? 03/01/2022 08:34 Neut % 59.0 % ()?? 03/01/2022 08:34 Lymph % 26.7 % ()?? 03/01/2022 08:34 Sweet Grass % 11.4 % (High)?? 03/01/2022 08:34 Eos % 2.0 % ()?? 03/01/2022 08:34 Baso % 0.6 % ()?? 03/01/2022 08:34 Imm Gran 0.3 % ()?? 03/01/2022 08:34 Abs. Imm Gran 0.0 k/mm3 ()?? 03/01/2022 08:34 ?? BLOOD GAS pH 7.35 (Low)?? 02/28/2022 15:40 pCO2 51 mm Hg (High)?? 02/28/2022 15:40 pO2 106 mm Hg (High)?? 02/28/2022 15:40 Bicarbonate, Estimated 28 mmol/L ()?? 02/28/2022 15:40 Specimen Type - Blood Gas ARTERIAL ()?? 02/28/2022 15:40 pH, Venous 7.35 ()?? 02/27/2022 21:37 pCO2, Venous 58 mm Hg (High)?? 02/27/2022 21:37 pO2, Venous 29 mm Hg (Low)?? 02/27/2022 21:37 Bicarbonate, Estimated(Venous) 31 mmol/L ()?? 02/27/2022 21:37 Percent O2 (FIO2) 22 ()?? 02/28/2022 15:40 ?? CHEM GENERAL Sodium 142 mmol/L ()?? 03/01/2022 08:34 Potassium 3.5 mmol/L (Low)?? 03/01/2022 08:34 Chloride 107 mmol/L ()?? 03/01/2022 08:34 Bicarbonate Level 27 mmol/L ()?? 03/01/2022 08:34 Anion Gap 8 ()?? 03/01/2022 08:34 Glucose Level 86 mg/dL ()?? 03/01/2022 08:34 Glucose, POC 166 mg/dL (High)?? 02/27/2022 21:32 BUN 7 mg/dL (Low)?? 03/01/2022 08:34 Creatinine-Blood 0.4 mg/dL (Low)?? 03/01/2022 08:34 Estimated GFR Creatinine 107 ML/MIN/1.73 M2 ()?? 03/01/2022 08:34 Calcium 9.0 mg/dL ()?? 03/01/2022 08:34 Protein, Total 8.2 Gm/dL ()?? 02/27/2022 21:26 Albumin 4.4 Gm/dL ()?? 02/27/2022 21:26 AG Ratio 1.2 ()?? 02/27/2022 21:26 Alkaline Phosphatase 99 units/L ()?? 02/27/2022 21:26 AST (SGOT) 31 units/L ()?? 02/27/2022 21:26 ALT (SGPT) 39 units/L (High)?? 02/27/2022 21:26 Bilirubin, Total 0.3 mg/dL ()?? 02/27/2022 21:26 Lactate 2.0 mmol/L ()?? 02/27/2022 22:00 ? HEME OTHER Hold Blue Top SPECIMEN DISCARDED AFTER 4 HOURS. ()?? 02/27/2022 21:26 ? MISC. CHEMISTRY Hold Green Top SPECIMEN DISCARDED AFTER 1 WEEK ()?? 02/27/2022 21:26 ? UA/URINALYSIS Appear/Color, Urine LIGHT YELLOW ()?? 02/27/2022 21:29 Specific [place], Urine 1.016 ()?? 02/27/2022 21:29 pH, Urine 8.0 ()?? 02/27/2022 21:29 Albumin, Urine TRACE (Abnormal)?? 02/27/2022 21:29 Glucose, Urine NEGATIVE ()?? 02/27/2022 21:29 Ketones, Urine NEGATIVE ()?? 02/27/2022 21:29 Bilirubin, Urine NEGATIVE ()?? 02/27/2022 21:29 Hemoglobin, Urine NEGATIVE ()?? 02/27/2022 21:29 Nitrite, Urine NEGATIVE ()?? 02/27/2022 21:29 Leukocyte, Urine NEGATIVE ()?? 02/27/2022 21:29 Urobilinogen NORMAL mg/dL ()?? 02/27/2022 21:29 WBC's, Urine 2 /HPF ()?? 02/27/2022 21:29 RBC's, Urine 2 /HPF ()?? 02/27/2022 21:29 Mucus SLIGHT /LPF ()?? 02/27/2022 21:29 Hold Urine Culture Testing available 48 hours from time of collection. ()?? 02/27/2022 21:29 ? VIROLOGY Influenza A PCR NEGATIVE ()?? 02/27/2022 23:30 Influenza B PCR NEGATIVE ()?? 02/27/2022 23:30 RSV PCR NEGATIVE ()?? 02/27/2022 23:30 COVID-19 PCR Specimen Source NASAL ()?? 03/02/2022 06:20 COVID-19 PCR Result NEGATIVE ()?? 03/02/2022 06:20 ? 50 minutes spent on discharge * Taylor Buckner RN: PERFORM, SIGN, VERIFY Event Display: Case Management Discharge Plan Authored Date: [id number] Patient: ZAID VORA Age: 66 years Sex: Female : 1955 Associated Diagnoses: None Author: Taylor Buckner RN Discharge Plan Case Management Discharge Plan : Case Management Discharge Plan Data 03/03/2022 10:44 EST Discharge Level of Care at Discharge Homehealth/VNA Discharge VNA/Hospice/Home Care [facility] Care Discharge Transportation Arranged [facility] [address] [place] [address] Discharge Arranged Transport Date/Time 03/03/2022 14:00 Mode of Transportation Arranged Ambulance Name of Agency #1 [facility] Desktop Specialist # Service Categories #1 Occupational Therapy, Physical Therapy, Usp Service Comments #1 You are being discharged home with resumption of care through [facility]. They are notified of your discharge today. If you do not hear from them, please call the agency at [phone] * Greyson LONG, Aurora Aaron: PERFORM Event Display: Patient Education/Instruction Authored Date: [id number] Inpatient Adult Discharge Instructions [address] [address] Name: ZAID VORA : 1955 Visit: 02/28/2022 01:57:00 Current Date: 03/03/2022 13:25 Account: [id number] Inpatient Adult Discharge Instructions We would like [...] and their families. Surveys are administered by [employer]. ?? If further treatment with your primary care physician or another doctor is recommended, it is important for you to keep the appointment. Call your primary care physician or return to the Emergency Department immediately if your condition worsens, fails to improve, or new symptoms develop. If you need to find a doctor, you can call [facility] for a referral at [phone] or toll free at [phone] ([phone]) or log in to [email or web address] ?? You can view and manage your care through the patient portal or by using a health care luciano of your choosing. [employer] is a website that allows you to securely view your medical information including your hospital discharge summary, office visit summaries, medications and follow-up visits. You can also request appointments, renew medications, and request access to your medical information using a health care luciano of your choosing, or just ask a question. You can enroll at [email or web address] or register during your next office visit. You have been discharged from [facility], Patient Care Unit: S3. If you have any questions regarding these instructions after you leave, please call us and we will be happy to assist you. [facility] Your Care Team Attending Physician Camila DSOUZA, Skye Vasques Consulting Providers Shemar Valencia MD Discharging Providers Skye Jensen MD Reason for Admission pt here from home with ams. pt was recently d/c, dx flu. per family pt is altered, low 02 was on home cpap upon ems arrival, placed on 2L sat 99%. pt somnolent o arrival to ed. Your Diagnosis Altered mental state Lethargy Fever Fever Altered mental state Lethargy Tests Performed Below is a partial list of the tests performed during your hospitalization. You may have had other tests and procedures not included in this list. Please discuss all test results with your provider. ABG Basic Metabolic Panel CBC w/ Differential Comprehensive Metabolic Panel COVID-19 (2019 Novel Coronavirus) PCR COVID-19, RSV, and Flu A/B, Rapid PCR GLUCOSE POC HOLD BLUE TUBE HOLD GREEN TUBE Lactate Level Urinalysis w/hold for Urine Culture VBG CT Abd/Pelvis W/ IV Contrast Only CT Chest W/ IV Contrast CT Head/Brain W/O Contrast CXR Portable Doppler Ext Upper Venous Left (US) XR Modified Barium Swallow W/ Speech RAD Primary Care Provider Nicole Denny NP Advance Directive Health Care Proxy on File Yes - MOLST No qualifying data available. Discharge Vitals Temperature: 98.1 DegF Pulse Rate: 81 bpm Respiratory Rate: 18 br/min Systolic Blood Pressure:??149 mm Hg??High Diastolic Blood Pressure: 77 mm Hg Oxygen Saturation: 97 % Studies Pending All tests and labs ordered during this hospital stay have been completed unless listed below. Please discuss all pending results with your provider listed above in these instructions. ?? Blood Culture Blood Culture #2 COVID-19 (2019 Novel Coronavirus) PCR Lactic Acid Level (Lactate Level) What to do next Instructions From Your Doctor You were admitted with??altered mental status likely secondary to community- acquired pneumonia. He was started on IV antibiotics,??you should continue??oral antibiotics after discharge??to complete the course of the treatment. Please follow-up with your primary care physician within the next 1 to 2 weeks. Discharge Orders You Need to Schedule the Following Appointments Follow Up with??Nicole Denny NP When?? Where: [address] [place] [address]- Discharge Medications ZAID VORA :1955 Visit Date:02/28/2022 Medications: Please continue your medications until treatment is completed or stopped by your provider. Medications not listed below should be discontinued. Discuss any questions related to medications with your provider. What How Much When Instructions Next Dose New Amoxicillin-Clavulanate (Augmentin 875 mg-125 mg oraltablet) 1 tab(s) Oral Every 12 hours Duration: 10 Days Pickup at [facility] 3 next dose due 03/03 at 9pm Unchanged Acetaminophen (acetaminophen 325 mg oral tablet) 650 Milligram Oral Every 4 hours as needed for Pain , Mild Temperature Greater than 100.5 ?? take as directed Unchanged Aspirin (Aspirin Tablet) 81 Milligram Oral Daily next dose due 03/04 at 9am Unchanged Atorvastatin (Lipitor 40 mg oral tablet) 1 tab(s) Oral Daily in the morning next dose due 03/04 at 9am Unchanged Docusate-Senna (Docusate/ Senna Tablet) 1 tab(s) Oral Twice a day as needed for Constipation take as directed Unchanged levETIRAcetam (Keppra 500 mg oral tablet) 2 tab(s) Oral Twice a day next dose due 03/03 at 9pm Unchanged Melatonin (melatonin 3 mg oral tablet) 3 Milligram Oral Daily at Bedtime as needed for Insomnia take as directed Unchanged Polyethylene Glycol 3350 (MiraLax Powder) 17 gram Oral Daily next dose due 03/04 at 9am Unchanged rivaroxaban (rivaroxaban 20 mg oral tablet) 20 Milligram Oral Daily in the morning next dose due 03/04 at 9am Pharmacy Information [facility] 3: [address], [place] [id number] [phone] Test Results Below is a partial list of the most recent Laboratory test results done prior to this discharge. You may have had other tests and procedures not included in this list. Please discuss all test resultswith your provider. ABG (02/28/2022) ???pH - 7.35???pCO2 - 51 mm Hg???pO2 - 106 mm Hg???Bicarbonate, Estimated - 28 mmol/L???Specimen Type - Blood Gas - ARTERIAL???Percent O2 (FIO2) - 22 Basic Metabolic Panel (03/01/2022) ???Sodium - 142 mmol/L???Potassium - 3.5 mmol/L???Chloride - 107 mmol/L???Bicarbonate Level - 27 mmol/L???Anion Gap - 8???Glucose Level - 86 mg/dL???BUN - 7 mg/dL???Creatinine-Blood - 0.4 mg/dL???Estimated GFR Creatinine - 107 ML/MIN/1.73 M2???Calcium - 9.0 mg/dL CBC w/ Differential (03/01/2022) ???WBC - 7.0 k/mm3???RBC - 4.55 m/mm3???Hgb - 11.2 Gm/dL???Hct - 38.6 %???MCV - 84.8 femtoliters???MCH - 24.6 pg???MCHC - 29.0 g/dL???Platelet Count - 315 k/mm3???RDW-SD - 47.2 femtoliters???MPV - 9.7 femtoliters???Nucleated RBC (Automated) - 0.0 #/100 WBC'S???Abs. NRBC - 0.0 k/mm3???Abs. Neut - 4.1 k/mm3???Abs. Lymph - 1.9 k/mm3???Abs. Sweet Grass - 0.8 k/mm3???Abs. Eo - 0.1 k/mm3???Abs. Baso - 0.0 k/mm3???Neut % - 59.0 %???Lymph % - 26.7 %???[place] % - 11.4 %???Eos % - 2.0 %???Baso % - 0.6 %???Imm Gran - 0.3 %???Abs. Imm Gran - 0.0 k/mm3 Comprehensive Metabolic Panel (02/27/2022) ???Sodium - 141 mmol/L???Potassium - 4.5 mmol/L???Chloride - 100 mmol/L???Bicarbonate Level - 29 mmol/L???Anion Gap - 12???Glucose Level - 168 mg/dL???BUN - 9 mg/dL???Creatinine-Blood - 0.6 mg/dL???Estimated GFR Creatinine - 99 ML/MIN/1.73 M2???Calcium - 9.9 mg/dL???Protein, Total - 8.2 Gm/dL???Albumin - 4.4 Gm/dL???AG Ratio - 1.2???Alkaline Phosphatase - 99 units/L???AST (SGOT) - 31 units/L???ALT (SGPT) - 39 units/L???Bilirubin, Total - 0.3 mg/dL COVID-19 (2019 Novel Coronavirus) PCR (03/02/2022) ???COVID-19 PCR Specimen Source - NASAL???COVID-19 PCR Result - NEGATIVE COVID-19, RSV, and Flu A/B, Rapid PCR (02/27/2022) ???Influenza A PCR - NEGATIVE???Influenza B PCR - NEGATIVE???RSV PCR - NEGATIVE???COVID-19 PCR Specimen Source - NASAL???COVID-19 PCR Result - NEGATIVE GLUCOSE POC (02/27/2022) ???Glucose, POC - 166 mg/dL HOLD BLUE TUBE (02/27/2022) ???Hold Blue Top - SPECIMEN DISCARDED AFTER 4 HOURS. HOLD GREEN TUBE (02/27/2022) ???Hold Green Top - SPECIMEN DISCARDED AFTER 1 WEEK Lactate Level (02/27/2022) ???Lactate - 2.0 mmol/L Urinalysis w/hold for Urine Culture (02/27/2022) ???Appear/Color, Urine - LIGHT YELLOW???Specific [place], Urine - 1.016???pH, Urine - 8.0???Albumin, Urine - TRACE???Glucose, Urine - NEGATIVE???Ketones, Urine - NEGATIVE???Bilirubin, Urine - NEGATIVE???Hemoglobin, Urine - NEGATIVE???Nitrite, Urine - NEGATIVE???Leukocyte, Urine - NEGATIVE???Urobilin ogen - NORMAL???WBC's, Urine - 2 /HPF???RBC's, Urine - 2 /HPF???Mucus - SLIGHT???Hold Urine Culture- Testing available 48 hours from time of collection. 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 Left-sided weakness?? Seizure disorder?? Torticollis?? Education Materials Below is the list of Educational Leaflet Providered with your Discharge Instructions. Valuables and Belongings I fully understand and agree that [facility] accepts no responsibility for all my personal [...] Review of Valuable and Belonging List: With patient Date for Pt to Sign Valuables/Belongings: 03/03/22 12:57:00 ?? Other Discharge Information ? Case Management Discharge Plan?? Discharge Plan?? Discharge Agency Information?? Discharge Level of Care at Discharge: Homehealth/VNA Name of Agency #1: [facility] Discharge Transportation Arranged: [facility] [address] ??[phone] Agency Desktop Specialist #1: [phone] Mode of Transportation Arranged: Ambulance Service Categories #1: Occupational Therapy, Physical Therapy, Usp Discharge Arranged Transport Date/Time: 03/03/22 14:00:00 Service Comments #1: You are being discharged home with resumption of care through [facility]. They are notified of your discharge today. If you do not hear from them, please call the agency at [phone] Discharge VNA/Hospice/Home Care: [facility] ? Pulmonary Rehab Status?? Pulmonary Rehab Discharge Status?? CPAP/BiPAP Mask Type: Full CPAP/BiPAP Mask Size: Small Respiratory Rate: 18 br/min ? Common Emergency Awareness Tips IS IT [...] are strongly encouraged to quit. Please call [facility] [employer] Link at [phone] or [phone] ([phone]) or log in to [email or web address] for referrals to smoking cessation programs. ?? The National Suicide Prevention Hotline is available 12/09 if you or someone you know needs to find a reason to keep living. By calling 6-313-559-BonaYou (9947) you'll be connected to a skilled, trained counselor at a crisis center in your area. INPATIENT DISCHARGE INSTRUCTIONS SIGNATURE ZAID MARTINEZ Location:[facility] Registration Date and Time:02/28/2022 01:57 EST Primary Care Physician: Denisha HERNANDEZ, Nicole Martinez, ZAID PETERSON, have received the above patient education materials/instructions and have verbalized understanding. If ambulance or transport services are being used I further acknowledge being givena choice of service. ?? If you need to contact me, please call me at this number: . Patient/Utility Worker Name: Patient/Utility Worker Signature: Relationship to Patient: Witness Name/Signature: Date: * Aurora Rubi RN: PERFORM Event Display: Patient Education Leaflets Authored Date: [id number] What Is Pneumonia? ?? [address]85 What Is Pneumonia? Pneumonia is a serious lung infection. It can affect 1 or both lungs. Many cases of pneumonia are caused by bacteria or viruses. Fungi may also cause pneumonia, but this is less common. You may get pneumonia??after an illness, such as a cold, flu, or bronchitis. Those most at risk forpneumonia include babies, children, older adults, smokers, and people with long-term (chronic) health problems or weak immune systems. Healthy lungs ??? Air travels in and out of the lungs through tubes called airways. ??? The tubes branch into smaller passages called bronchioles.??These end in tiny sacs called alveoli. ??? Blood vessels surrounding the alveoli??take oxygen into the bloodstream. At the same time, the alveoli remove carbon dioxide (a waste gas) from the blood. The carbon dioxide is then exhaled. ?? When you have pneumonia ??? Pneumonia causes the bronchioles and the alveoli to fill with excess mucus or pus and become inflamed. ??? Your body???s response may be to cough. This can help clear out the fluid. ??? The fluid (mucus) you cough up may look green or dark yellow. ??? The excess mucus may make you feel short of breath. ??? The inflammation and infection may give you a fever. ?? What are the symptoms? Symptoms of pneumonia can come without warning. At first, you may think you have a cold or flu. But??symptoms may get worse quickly,??turning into pneumonia. Symptoms can be different for bacterial and viral pneumonia. They may be mild or severe. Common symptoms may include: ??? Severe cough with green or yellow mucus that doesn't get better, or gets worse ??? Fever and chills ??? Upset stomach (nausea), vomiting or diarrhea ??? Loss of appetite ??? Shortness of breath with normal daily activities ??? Increased heart rate ??? Chest pain or discomfort??when breathing in or coughing ??? Headache ??? A lot of sweating and clammy skin ??? Severe tiredness (fatigue) ?? Last Reviewed Date: 2021 ?? [id number] The [employer]. All rights reserved. This information is not intended as a substitute for professional medical care. Always follow your healthcare professional's instructions. ?? * Greyson LONG, Aurora Aaron: PERFORM Event Display: Patient Education Leaflets Authored Date: [id number] Community-Acquired Pneumonia in Adults ?? 606 Community-Acquired Pneumonia in Adults What is community-acquired pneumonia? Pneumonia is a type of lung infection. It can cause breathing problems and other symptoms. In community-acquired pneumonia (CAP), you get infected in a community setting. It doesn???t happen in a hospital, penitentiary, or other healthcare center. Your lungs are part of your respiratory system. This system supplies fresh oxygen to your blood andremoves carbon dioxide, a waste product. When you breathe in air through your nose and mouth, it reaches the tiny air sacs of the lung (alveoli) through a series of tubes. From here, oxygen flows into your blood. Carbon dioxide flows out from the blood into the alveoli. You then breathe it out. Many germs can grow inside and on your body and cause disease. Certain germs can cause lung infection and pneumonia when they get into the lungs. This can cause your respiratory system to work poorly. For example, oxygen may not be able to get into your blood as easily. That can cause shortness of breath. Pneumonia may lead to if your body can???t get enough oxygen to survive. Sometimes these germs can spread from person to person. When someone infected with one of these germs sneezes or coughs, you might breathe the germs into your lungs. The germs may grow and cause pneumonia if your immune system doesn???t kill the germs first. CAP can result from infection with many types of germs. These include bacteria, viruses, fungi, andparasites. Symptoms from pneumonia can range from mild to severe. Certain types of germs are more likely to lead to serious infection. CAP is more common during the winter months. It's also more common in older adults. But it can affect people of any age. It can be very serious, especially in older adults, young children, and peoplewith other health problems. ?? What causes community-acquired pneumonia? Many different types of germs can cause pneumonia. But certain types cause CAP more often. Worldwide, Streptococcus pneumoniae is a type of bacteria that is most often responsible for CAP in adults. Some other common bacteria that cause CAP are: ??? Haemophilus influenzae ??? Mycoplasma pneumoniae ??? Chlamydia??pneumoniae ??? Legionella ??? Gram-negative bacilli ??? Staphylococcus aureus The flu (influenza) virus is also a major viral cause of CAP. Having the flu also makes you more likely to get bacterial pneumonia. This type is often worse than viral pneumonia. Other types of viruses can also cause CAP. These include SARS-CoV-2 (the cause of COVID-19), parainfluenza virus, echovirus, adenovirus, and coxsackievirus. In fact, viruses are likely the cause of most episodes of CAP. Fungi and parasites may also cause CAP. ?? Who is at risk for community-acquired pneumonia? Certain things may raise your risk for CAP. Some of these are: ??? Smoking ??? Weak immune system, such as from medicines or a health problem such as diabetes, cancer, or HIV ??? Other lung problems, such as COPD (chronic obstructive pulmonary disease) ??? Otherhealth problems, such as kidney failure ??? Use of certain medicines, including proton-pump inhibitors ??? Heavy alcohol use You also have a higher risk if you come into contact with other people who have pneumonia. ?? What are the symptoms of community-acquired pneumonia? Symptoms of CAP often develop quickly. These symptoms may include: ??? Shortness of breath ??? Coughing ??? Heavy sputum ??? Fever and chills ??? Chest pain that is worse when you breathe or cough ??? Upper belly (abdomen) pain with nausea, vomiting, or diarrhea Your healthcare provider might notice other signs. These are a fast heartbeat, fast breathing rate,or certain sounds on a lung exam. ?? How is community-acquired pneumonia diagnosed? Your healthcare provider will ask about your more recent symptoms and your past health problems. They will also do a physical exam, including a careful exam of your lungs. Lab tests can be very helpful in diagnosing CAP. Some tests you might need are: ??? Chest X-ray, which often confirms the diagnosis ??? Blood tests to check for infection and oxygen status of your blood ??? Blood culture tests to see if a germ is growing in your bloodstream ??? Tests of your sputumto see if a germ is present there ??? Urine tests for certain bacteria ??? Swab of your nose or thro at to test for viruses or bacteria ?? How is community-acquired pneumonia treated? Your treatment may vary based on your symptoms and the type of germ causing the pneumonia. If you have severe pneumonia, you will likely need to stay in the hospital for some time. If you only have mild symptoms, you can probably get treatment at home. Antibiotics are a jane treatment for bacterial CAP. Certain viral forms of CAP may also be treated with antiviral medicine. But for many viral causes there is no specific medicine. If needed, your healthcare provider will likely start you on an antibiotic or antiviral medicine even before finding out the type of bacteria or virus. The type of antibiotic can vary based on the germs known to be in your community, as well as your other health problems. Your healthcare provider will want to treat you with an antibiotic that is likely to kill whatever germ is causing your illness. Antibacterial antibiotics don't help in treating viral pneumonia. They can often cause more harm than good. For treatment at home, you will probably take an antibiotic by mouth for 5 to 7 days. In most cases, you will start to feel better a few days after you start treatment. If you need to stay in the hospital, you will also need antibiotics specific to your case. In some cases, you may need to take these by IV (intravenously). Your healthcare provider might first start you on a certain antibiotic. They might then switch you to another as your blood tests show what kind of germ is causing your infection. You may also need extra support. This includes: ??? Extra oxygen ??? Fluids, if you are dehydrated ??? Breathing treatments ??? Respiratory support, such as with a ventilator, for a severe case Most people start getting better with treatment within a few days. A small portion of people who are treated in the hospital don???t respond to treatment within this time. If your symptoms don???t end, you may need a different antibiotic or treatment for complications from CAP. ?? What are possible complications of community-acquired pneumonia? Lung abscess and, rarely, empyema are possible complications of CAP. In empyema, a collection of pus builds in the space between the lung and the chest wall. You usually need antibiotics and drainageto treat it. A CT scan can often help diagnose these problems. Respiratory failure and are other possible complications. These are more likely to happen in older adults or those with other health problems. ?? What can I do to prevent community-acquired pneumonia? You can lower your chances of getting CAP by having a yearly flu shot. The pneumococcal vaccines protect against S. pneumoniae and may help in preventing CAP. Healthcare providers advise this shot for all people older than 65. You may need it before this time if you have: ??? Chronic heart, lung, liver, or kidney disease ??? Diabetes ??? Alcoholism ??? HIV ??? Weak immune system Smokers and people living in long-term care facilities should also get this shot before age 65. There are 2 vaccines against S. pneumoniae. Your healthcare provider may advise that you get both. You may need booster shots of the vaccine if you have your first pneumococcal vaccine before age 65 or if you have a weakened immune system. Practicing good hygiene can also help you lower your risk for CAP. That includes frequent handwashing. ?? When should I call my healthcare provider? Get treatment right away if you have symptoms of pneumonia. If you are being treated for CAP as an outpatient, call your healthcare provider if your symptoms don???t get better in a few days after starting treatment, or they get worse. ?? Jane points about community-acquired pneumonia ??? Pneumonia is a type of lung infection. It can cause breathing problems and other symptoms. In CAP, infection occurs outside of a healthcare setting. ??? CAP is a leading cause of in older adults. Most healthy young adults recover from CAP without a problem. ??? CAP can cause shortness of breath, fever, and cough. ??? You might need to stay in the hospital to be treated for CAP. ??? Most cases of CAP are caused by viruses and don't need treatment with antibiotics. ??? Antibiotics are the jane treatment for most types of CAP caused by bacteria. Antiviral medicine may be prescribed for certain viral causes of pneumonia. ??? Getting your vaccines as advised can help lower your risk for CAP. ?? Next steps Tips to help you get the most from a visit to your healthcare provider: ??? Know the reason for your visit and what you want to happen. ??? Before your visit, write down questions you want answered. ??? Bring someone with you to help you ask questions and remember what your provider tells you. ??? At the visit, write down the name of a new diagnosis, and any new medicines, treatments, or tests. Also write down any new instructions your provider gives you. ??? Know why a new medicine or treatment is prescribed, and how it will help you. Also know what the side effects are. ??? Ask if your condition can be treated in other ways. ??? Know why a test or procedure is recommended and what the results could mean. ??? Know what to expect if you do not take the medicine or have the test or procedure. ??? If you have a follow-up appointment, write down the date, time, and purpose for that visit. ??? Know how you can contact your provider if you have questions. ?? Last Reviewed Date: 2021 ?? The [employer]. All rights reserved. This information is not intended as a substitute for professional medical care. Always follow your healthcare professional's instructions. ?? * Greyson LONG, Aurora Aaron: PERFORM Event Display: Patient Education Leaflets Authored Date: [id number] Amoxicillin/Clavulanate Oral Tablet ?? [id number] Amoxicillin/Clavulanate Oral Tablet Brands: Augmentin Uses For treating bacterial infection. ?? Instructions Take the medicine with food. Keep the medicine at room temperature. Avoid heat and direct light. It is important that you keep taking each dose of this medicine on time even if you are feeling well. If you forget to take a dose on time, take it as soon as you remember. If it is almost time for thenext dose, do not take the missed dose. Return to your normal dosing schedule. Do not take 2 doses of this medicine at one time. Tell your doctor and pharmacist about all your medicines. Include prescription and nzod-exr-xqxrsehxnobntghz, vitamins, and herbal medicines. Keep using this medicine for the full number of days that it is prescribed. Do not stop the medicine even if you start to feel better. If you have diabetes and use urine glucose tests, this medicine may cause incorrect results. Pleasecheck with your doctor before making any changes to your diabetes treatment plan. ?? Cautions Tell your doctor and pharmacist if you ever had an allergic reaction to a medicine. Do not use the medication any more than instructed. Please tell your doctor if you have moderate to severe diarrhea while on this medicine. Do not treat the diarrhea with rvnv-mbj-nfopner diarrhea medicine. Tell the doctor or pharmacist if you are , planning to be , or . Do not start or stop any other medicines without first speaking to your doctor or pharmacist. Do not share this medicine with anyone who has not been prescribed this medicine. ?? Side Effects The following is a list of some common side effects from this medicine. Please speak with your doctor about what you should do if you experience these or other side effects. ??? diarrhea ??? nausea and vomiting ??? stomach upset or abdominal pain Call your doctor or get medical help right away if you notice any of these more serious side effects: ??? severe or persistent abdominal pain ??? severe, watery or bloody diarrhea ??? signs of liver damage (such as yellowing of eye or skin, dark urine, or unusual tiredness) ??? red, burning, or itchyskin ??? yeast infection of mouth ??? vaginal itching or discharge A few people may have an allergic reaction to this medicine. Symptoms can include difficulty breathing, skin rash, itching, swelling, or severe dizziness. If you notice any of these symptoms, seek medical help quickly. ?? Extra Please speak with your doctor, nurse, or pharmacist if you have any questions about this medicine. ?? [email or web address]/[email or web address] IMPORTANT NOTE: This document tells you briefly how to take your medicine, but it does not tell youall there is to know about it. Your doctor or pharmacist may give you other documents about your medicine. Please talk to them if you have any questions. Always follow their advice. There is a more complete description of this medicine available in [place]. Scan this code on your smartphone or tablet or use the web address below. You can also ask your pharmacist for a printout. If you have any questions, please ask your pharmacist. The display and use of this drug information is subject to Terms of Use. Copyright(c) 2021 [employer]. ?? The [employer]. All rights reserved. This information is not intended as a substitute for professional medical care. Always follow your healthcare professional's instructions. ?? * [facility] , CIS S: TRANSCRIBE Amy DSOUZA, Sabiha M: VERIFY Kevin De Guzman: SIGN Event Display: Result: Authored Date: Modified Barium Swallow WITH SPEECH PATHOLOGY CLINICAL INDICATION: Reason: Aspiration; Clinical Question(s): Aspiration; Order Comment: Modified Barium Swallow W Speech (Radiology) Prep COMPARISON: None Technique: Lateral cine-videofluoroscopy was performed during the oral administration of various barium containing consistencies, as described below. Fluoroscopic imaging provided by Wilbert Baxter PA-C. Pulsed fluoroscopy time: 2.7 minutes Dose Area Product (DAP): 489.4 uGy*m2 Findings: Applesauce, pudding, nectar, mixed fruit/juice, and thin barium consistencies were tested. The oral and pharyngeal phases of swallowing were without evidence of laryngeal penetration or subglottic aspiration. True lateral visualization of patient's cervical anatomy is somewhat limited by torticollis. IMPRESSION: No laryngeal penetration or subglottic aspiration. Findings as described. For dietary concerns or recommendations, please refer to speech pathologist report. By undersigning and finalizing the report, the attending radiologist confirms he/she has personallyreviewed and interpreted the images and agrees with the description of the findings. I have personally reviewed the images and I agree with this report. WSN: [id number] Ordering Physician: Janessa Chavez Dictated By: Kevin De Guzman Dictated Date/Time: 03/02/22 12:51 p Reviewed By: Sabiha Reyes MD Signed By: Sabiha Reyes MD Signed Date/Time: 03/02/22 12:56 pm Transcribed By: DOMINIC Transcribed Date/Time: 03/02/22 10:55 am * VIANCA Prabhakar S: TRANSCLuh Morton MD: VERIFY Event Display: Result: Authored Date: [id number] US Doppler Ext Upper Venous Left Reason: Swelling Extremities; LUE swelling, doppler to r o dvt; Clinical Question(s): Thrombosis COMPARISON: None. IMAGING TECHNIQUE: Ultrasound examination of the upper extremity deep venous system was performed using grayscale, color, and spectral wave analysis including response to compression. Assessment includes the contralateral jugular and subclavian vein. FINDINGS: Internal jugular vein: Patent. No thrombosis. Subclavian vein: Patent. No thrombosis. Axillary vein: Patent. No thrombosis. Brachial vein: Patent. No thrombosis. Basilic vein: Patent. No thrombosis. Cephalic vein: Patent. No thrombosis. Contralateral internal jugular vein: Limited due to patient head position. Patent. No thrombosis. Contralateral subclavian vein: Limited due to patient head position. Patent. No thrombosis. IMPRESSION: No acute deep venous thrombosis in the LEFT upper extremity deep veins. WSN: [id number] Ordering Physician: Janessa Chavez Dictated By: Luh Estevez MD Dictated Date/Time: 02/28/22 6:55 pm Reviewed By: Luh Estevez MD Signed By: Luh Estevez MD Signed Date/Time: 02/28/22 6:55 pm Transcribed By: DOMINIC Transcribed Date/Time: 02/28/22 6:53 pm Portable XR Chest Views * Aki , VIANCA S: TRANSCRey Gonzales MD: VERIFY Deshaun Lin DO L: SIGN Event Display: Result: Authored Date: [id number] Chest Portable Reason: Cough; Clinical Question(s): Pneumonia COMPARISON: 02/16/2022 FINDINGS: Note that the right upper hemithorax is obscured by patient's chin. LINES AND TUBES: None. LUNGS AND PLEURA: Low lung volumes. Lungs are otherwise clear with no consolidation. No pleural effusion. No pneumothorax. HEART, MEDIASTINUM AND MAYKEL: Heart is normal in size. Normal mediastinal and hilar contour. BONES AND SOFT TISSUES: No acute abnormality. IMPRESSION: No acute abnormality. I have personally reviewed the images and I agree with this report. 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 TECHNIQUE: Noncontrast head CT using axial technique and reconstructed in axial and coronal plane. Iterative reconstruction techniques are used to optimize radiation dose and image quality. COMPARISON: None. FINDINGS: Suboptimal exam due to motion degradation and streak artifact from dense calvarium/surgical material. BRAIN and EXTRA-AXIAL SPACES: Subcortical hypodensity in the right anterior frontal lobe with adjacent surgical material, likely representing the resection cavity. There is also ill- defined low-attenuation involving the anterior left frontal lobe suggestive of vasogenic edema with preservation of the corey-white matter differentiation. Area of encephalomalacia involving the left basal ganglia. Ex vacuo dilation of the anterior right frontal horn of the right lateral ventricle. There is moderate dilation of the anterior horn of the left lateral ventricle, possibly also ex vacuo dilation. No evidence of intraparenchymal hemorrhage or loss of corey-white differentiation. Patent basal cisterns. Posterior fossa is unremarkable. No extra-axial collection no hemorrhage. CALVARIUM, SKULL BASE AND SOFT TISSUES: No fractures or suspicious bony lesions. Prior right frontal craniotomy. The paranasal sinuses and mastoid air cells are clear. Visualized orbits and globes are intact. The extracranial soft tissues are unremarkable. IMPRESSION: 1. Postsurgical changes of the anterior right frontal lobe with associated encephalomalacia and ex vacuo dilation of the right lateral ventricle anterior horn. 2. Atypical rounded dilation in the anterior horn of the left lateral ventricle with adjacent edemawithin the left frontal lobe. The appearance is slightly more than would be expected for ex vacuo dilation. Low-attenuation within left frontal lobe may be related to vasogenic edema versus transependymal flow of CSF or potentially developing areas of encephalomalacia. Lack of comparison images makes determination difficult. Further assessment with MRI of the brain with and without contrast is recommended. A critical result message (Yellow) has been communicated via the [employer] system on 03/01/2022 10:14 AM, Message ID [id number]. I have personally reviewed the images and I agree with this report. WSN: [id number] Ordering Physician: Janessa Chavez Dictated By: Cathi Alanis DO Dictated Date/Time: 03/01/22 10:14 a Reviewed By: Domo Mcintyre MD Signed By: Domo Mcintyre MD Signed Date/Time: 03/01/22 10:19 am Transcribed By: DOMINIC Transcribed Date/Time: 03/01/22 9:[address] Abdomen and Pelvis W contrast IV * [facility] , CIS S: TRANSCRIBE Tony Gavin MD S: VERIFY Ra[Radiology] , Amninder: SIGN Event Display: Result: Authored Date: [id number] CT Chest W/ Contrast, CT Abd/Pelvis W/ IV Contrast Only INDICATION: Hx of Present Illness: pt here from home with ams. pt was recently d c, dx flu. per family pt is altered, low 02 was on home cpap upon ems arrival, placed on 2L sat 99%. pt somnolent o arrival to ed; Reason: Other:; Pulmonary Lesion; Clinical Question(s): Interstitial Alveolar Infiltration TECHNIQUE: Helical CT scan of the chest, abdomen, and pelvis with IV contrast, formatted in 3 planes. 75 cc of Omnipaque 300 was administered intravenously. This study was performed without oral contrast. Weight-based protocol was performed using automatic exposure control. CTDIvol Body: 9.60 mGy, DLP Body: 677 mGy*cm. COMPARISON: None. FINDINGS: Recruiter Account Manager view findings, lines and tubes: None. Trachea and airways: Narrowing of the right lower lobe bronchi in the area of atelectatic lung. Otherwise, patent. Lungs and pleura: Evaluation limited due to moderate motion artifact. Minimal groundglass opacitieswithin the right upper lobe posterior segment. Patchy opacities in the left lower lobe superior segment with associated bronchial wall thickening. Almost complete collapse of the right lower lobe. Noeffusion or pneumothorax. Mediastinum and maykel: No mass or hematoma. No mediastinal or hilar lymphadenopathy. No esophageal abnormality. No thyroid nodule large enough to warrant follow up. Heart: Heart is normal in size. No pericardial effusion. Moderate coronary artery calcification. Aorta: Mild vascular calcification but no aneurysm. Pulmonary arteries: Normal caliber. Severe respiratory motion artifact decreases sensitivity, but there is no evidence of pulmonary embolism on this study performed without angiographic technique. Chest wall soft tissues: No acute abnormality. Diaphragm: Intact. Liver: Normal in attenuation and morphology. No suspicious lesion. Gallbladder: No CT evidence of gallbladder pathology. Bile ducts: No biliary ductal dilation. Spleen: Normal in size. Pancreas: No suspicious lesion or ductal dilatation. Adrenal glands: No nodule. Kidneys and ureters: No hydronephrosis, stone, or suspicious lesion. Small hypodensities that are too small to characterize are noted, requiring no dedicated follow up. Bladder: Mild diffuse bladder wall thickening Reproductive organs: Multilobulated uterus. Low-attenuation endometrial thickening up to 0.9 cm. Subtle 9 mm ovoid nodular focus in the endometrial cavity (series 208 image 75). There is a prominent peripherally calcified 4.6 cm mass in the left uterine fundus, likely a calcified fibroid. Stomach, small bowel, and large bowel: Unremarkable small and large bowel. Appendix: No evidence of acute appendicitis. Peritoneum and retroperitoneum: No ascites or pneumoperitoneum. No omental or mesenteric lesions. Lymph nodes: No enlarged lymph nodes. Blood vessels: Moderate atherosclerotic vascular calcification. No aortic aneurysm. No evidence of venous thrombosis. Abdominal and pelvic wall soft tissues: Small fat-containing umbilical hernia. Bones: No acute abnormality. IMPRESSION: 1. Almost complete collapse of the right lower lobe with scattered groundglass and patchy opacitieselsewhere in the lungs is concerning for pneumonia in the appropriate clinical setting. Follow-up to resolution is recommended. 2. Mild diffuse bladder wall thickening could represent acute cystitis. Recommend correlation with urinalysis. 3. Multilobulated uterus, likely representing fibroids. The endometrium is low- attenuation and thickened up to 0.9 cm. Possible 9 mm nodular focus in the endometrium that could represent a polyp or other mass. Gynecological consultation and further evaluation with a nonemergent pelvic ultrasound should be considered. I have personally reviewed the images and I agree with this report. WSN: [id number] Ordering Physician: Jesús Sutton Dictated By: Ra[Radiology] Azael DSOUZA Dictated Date/Time: 02/28/22 7:33 am Reviewed By: Tony Gavin MD Signed By: Tony Gavin MD Signed Date/Time: 02/28/22 7:38 am Transcribed By: DOMINIC Transcribed Date/Time: 02/28/22 1:[address] Chest W contrast IV * [facility] , CIS S: TRANSCRIBE Tony Gavin MD: VERIFY Ra[Radiology] Azael DSOUZA: SIGN Event Display: Result: Authored Date: [id number] CT Chest W/ Contrast, CT Abd/Pelvis W/ IV Contrast Only INDICATION: Hx of Present Illness: pt here from home with ams. pt was recently d c, dx flu. per family pt is altered, low 02 was on home cpap upon ems arrival, placed on 2L sat 99%. pt somnolent o arrival to ed; Reason: Other:; Pulmonary Lesion; Clinical Question(s): Interstitial Alveolar Infiltration TECHNIQUE: Helical CT scan of the chest, abdomen, and pelvis with IV contrast, formatted in 3 planes. 75 cc of Omnipaque 300 was administered intravenously. This study was performed without oral contrast. Weight-based protocol was performed using automatic exposure control. CTDIvol Body: 9.60 mGy, DLP Body: 677 mGy*cm. COMPARISON: None. FINDINGS: Recruiter Account Manager view findings, lines and tubes: None. Trachea and airways: Narrowing of the right lower lobe bronchi in the area of atelectatic lung. Otherwise, patent. Lungs and pleura: Evaluation limited due to moderate motion artifact. Minimal groundglass opacitieswithin the right upper lobe posterior segment. Patchy opacities in the left lower lobe superior segment with associated bronchial wall thickening. Almost complete collapse of the right lower lobe. Noeffusion or pneumothorax. Mediastinum and maykel: No mass or hematoma. No mediastinal or hilar lymphadenopathy. No esophageal abnormality. No thyroid nodule large enough to warrant follow up. Heart: Heart is normal in size. No pericardial effusion. Moderate coronary artery calcification. Aorta: Mild vascular calcification but no aneurysm. Pulmonary arteries: Normal caliber. Severe respiratory motion artifact decreases sensitivity, but there is no evidence of pulmonary embolism on this study performed without angiographic technique. Chest wall soft tissues: No acute abnormality. Diaphragm: Intact. Liver: Normal in attenuation and morphology. No suspicious lesion. Gallbladder: No CT evidence of gallbladder pathology. Bile ducts: No biliary ductal dilation. Spleen: Normal in size. Pancreas: No suspicious lesion or ductal dilatation. Adrenal glands: No nodule. Kidneys and ureters: No hydronephrosis, stone, or suspicious lesion. Small hypodensities that are too small to characterize are noted, requiring no dedicated follow up. Bladder: Mild diffuse bladder wall thickening Reproductive organs: Multilobulated uterus. Low-attenuation endometrial thickening up to 0.9 cm. Subtle 9 mm ovoid nodular focus in the endometrial cavity (series 208 image 75). There is a prominent peripherally calcified 4.6 cm mass in the left uterine fundus, likely a calcified fibroid. Stomach, small bowel, and large bowel: Unremarkable small and large bowel. Appendix: No evidence of acute appendicitis. Peritoneum and retroperitoneum: No ascites or pneumoperitoneum. No omental or mesenteric lesions. Lymph nodes: No enlarged lymph nodes. Blood vessels: Moderate atherosclerotic vascular calcification. No aortic aneurysm. No evidence of venous thrombosis. Abdominal and pelvic wall soft tissues: Small fat-containing umbilical hernia. Bones: No acute abnormality. IMPRESSION: 1. Almost complete collapse of the right lower lobe with scattered groundglass and patchy opacitieselsewhere in the lungs is concerning for pneumonia in the appropriate clinical setting. Follow-up to resolution is recommended. 2. Mild diffuse bladder wall thickening could represent acute cystitis. Recommend correlation with urinalysis. 3. Multilobulated uterus, likely representing fibroids. The endometrium is low- attenuation and thickened up to 0.9 cm. Possible 9 mm nodular focus in the endometrium that could represent a polyp or other mass. Gynecological consultation and further evaluation with a nonemergent pelvic ultrasound should be considered. I have personally reviewed the images and I agree with this report. WSN: [id number] Ordering Physician: Jesús Sutton Dictated By: Ra[Radiology] Azael DSOUZA Dictated Date/Time: 02/28/22 7:33 am Reviewed By: Tony Gavin MD Signed By: Tony Gavin MD Signed Date/Time: 02/28/22 7:38 am Transcribed By: DOMINIC Transcribed Date/Time: 02/28/22 1:49 am Patient Care team information Care Team Personnel Name: Srinath RNTonya Position: S RN Member Role: Primary Care Nurse Name: Jos Tucker RN Position: [facility] RN Member Role: Primary Care Nurse Name: Nicloe Denny NP Position: Reference Physician Member Role: PCP Address: Address: [address] [place] [address] Name: Jorge Luis RICHARDS Attending Position: [facility] ED Medicine Name: Heber Fink Position: [facility] TA [facility] Member Role: Granulator Tender Name: Aurea Horn RN Position: [facility] ED RN W/OE and Tasks Member Role: Patient Care Provider Care Team Related Persons Name: TARA VORA Address: [place] [address]
[2023-08-18 13:43] LABS: Alanine Aminotransferase 32 U/L (0-31); Alkaline Phosphatase 120 U/L (39-117); Anion Gap 13 (12-20); Aspartate Amino Transferase 19 U/L (5-31); Bilirubin Direct 0.2 mg/dL (0.0-0.5); Bilirubin Total 0.4 mg/dL (0.0-1.0); Blood Urea Nitrogen 9 mg/dL (9-16); Calcium 9.3 mg/dL (8.4-10.2); Carbon Dioxide 27 mmol/L (22-29); Chloride 103 mmol/L (96-108); Estimated Glomerular Filt Rate > 60; Glucose Random 154 mg/dL (60-115); Lipase 25 U/L (8-78); Potassium 4.3 mmol/L (3.3-5.1); Sodium 139 mmol/L (135-145); Total Protein 7.8 g/dL (6.5-8.0)
[2023-08-18 13:51] LABS: Troponin-I High Sensitivity 6.3 ng/L (<3.5-17.0)
[2023-08-18 13:56] LABS: Lactic Acid 2.5 mmol/L (0.5-2.0)
[2023-08-18 14:08] LABS: Influenza A PCR NEGATIVE (Negative); Influenza B PCR NEGATIVE (Negative); Resp Syncy Virus RNA Qual PCR NEGATIVE (Negative); SARS COV2 PCR INHOUSE NEGATIVE (Negative)
[2023-08-18 15:23] LABS: Reflex Lactate? Lactic Acid Added
[2023-08-18 15:46] LABS: Troponin-I High Sensitivity 8.1 ng/L (<3.5-17.0)
[2023-08-18 15:58] VITALS: BP 170/79; PULSE 110; RESP 23; O2SAT 99
[2023-08-18 18:02] VITALS: BP 168/82; PULSE 106; RESP 21; TEMP 38.2; O2SAT 100
--- NOTE | 2023-08-18 20:13 | PC.NURSE ---
delay in medication due to MD doing LP procedure
[2023-08-18 20:22] LABS: Appearance Urine Cloudy; Color Urine Yellow; Glucose Urine UA Negative (Negative); Leukocyte Esterase Urine Moderate (2+) (Negative); Nitrite Urine Negative (Negative); Specific Gravity - Urine 1.015 (1.005-1.025); UMIC TRIGGER UACC YES; Urine Blood Small (1+) (Negative); Urine Ketones 40 mg/dL (Negative); Urine Protein Trace mg/dL (Neg-Trace)
[2023-08-18] MEDS: Acetaminophen 1,000 MG/100 ML PIGGYBACK 400 MG IV (20:23)
[2023-08-18] MEDS: dexAMETHasone sod phosphate 10 MG/ML VIAL IVPUSH (20:23)
[2023-08-18] MEDS: cefTRIAXone sodium 2 GM in 0.9 % Sodium Chloride 50 ML IV (20:26)
[2023-08-18 20:30] LABS: Amphetamine Screen Urine Not Detected (Not Detect); Barbiturates, Urine Not Detected (Not Detect); Benzodiazepines Screen Urine POSITIVE (Not Detect); Buprenorphine Scr Not Detected (Not Detect); Cannabinoid Screen Urine Not Detected (Not Detect); Cocaine Screen Urine Not Detected (Not Detect); Fentanyl, urine Not Detected (Not Detect); Methadone Screen, Urine Not Detected (Not Detect); Opiate Screen Urine Not Detected (Not Detect); Oxycodone Screen Urine Not Detected (Not Detect); Phencyclidine Screen Urine Not Detected (Not Detect)
[2023-08-18 20:41] LABS: Glucose CSF 85 mg/dL; Total Protein CSF 48.8 mg/dL (15-45)
[2023-08-18 20:42] LABS: Ethanol < 10 mg/dL; Lactic Acid 1.9 mmol/L (0.5-2.0)
[2023-08-18 20:44] LABS: Acetaminophen LAB < 3 mcg/mL (<30); Salicylate < 5.0 mg/dL (15-30)
[2023-08-18] MEDS: vancomycin HCL 1,000 MG, vancomycin HCL 750 MG in 0.9 % Sodium Chloride 500 ML 267.5 MG IV (20:44)
[2023-08-18 21:02] VITALS: BP 169/75; PULSE 99; RESP 19; TEMP 37.7; O2SAT 99
[2023-08-18 21:05] LABS: CSF Appearance Clear, Colorless; CSF Tube # 1
[2023-08-18 21:15] LABS: Appearance CSF CLEAR; CSF Tube # 4; Color CSF COLORLESS; Red Blood Cell CSF 186 MM*3; White Blood Cell CSF 2 MM*3
[2023-08-18 21:18] LABS: Bacteria Urine 4+ (None Seen); Hyaline Casts Urine 0-2 /LPF (0-2); Squamous Epithelial Cell Urine 0-2 /HPF (0-2); UACC Culture Trigger YES; WBC Urine >50 /HPF (0-5)
[2023-08-18 22:12] VITALS: BP 154/52; PULSE 100; RESP 22; TEMP 38.2; O2SAT 97
[2023-08-18 22:24] LABS: Lymphocytes CSF 80 %; Neutrophils CSF 8 %
[2023-08-18 22:25] LABS: CSF Monos 12 %
[2023-08-18] MEDS: Ampicillin Sodium 2 GM in 0.9 % Sodium Chloride 100 ML IV (22:26)
--- NOTE | 2023-08-18 22:30 | PHA.MEDREC ---
Pharmacy Consult ? Medication Reconciliation Pharmacy has completed the medication reconciliation. Confirmed medications with patients son at bedside and daughter over the phone. They were able to confirm her Rivaroxaban 20mg blood thinner and she took it last along with everything else yesterday morning.
[2023-08-19] VITALS (8 sets, daily range): BP systolic 142–171; BP diastolic 70–88; PULSE 68–102; RESP 16–20; TEMP 36.1–36.9; O2SAT 98–100; BMI 29.4
--- NOTE | 2023-08-19 00:34 | PM.IMHP ---
History of Present Illness Date of Service: 08/19/23 Attending physician on admission: Patsy Stewart Chief Complaint: Seizures HPI provided by patient's . Juani Ferro a 68 years old woman with past medical history significant for brain cancer status post chemotherapy and radiation, seizures, stroke, essential hypertension and DVT on Xarelto was brought to the emergency department after the patient started to experience seizures. According to patient's the patient has been having a dry cough for the last 5 days. He seems that she got from him as he was having the same symptoms. Fever she has not been noted. The patient has not been complaining of abdominal pain, nausea, vomiting, acute urinary changes or diarrhea. She was complaining of a mild headache that resolved with Motrin. The patient has not missed any dose of her medications including Keppra. Patient has no history of alcohol abuse, illicit drug or marijuana abuse. Patient received Versed by EMS. In the ED, she was found fever of 100.7, mild tachycardia and tachypnea. Oxygen saturation is normal room air. Blood workup was remarkable for slight leukocytosis of 10.9, there is Hemoglobin and platelets are normal. There are no electrolyte imbalances and there is no metabolic acidosis. LFTs are basically unremarkable. Urinalysis consistent with urinary tract infection. Patient underwent a lumbar puncture and CSF analysis was obtained. CSF appearance clear, WBC 2, RBC 1 a disease, neutrophils 8, lymphocytes 8, monocytes 2% elevated protein of 48.8. Urine drug screen is positive for benzodiazepines. Head CT and C-spine scans showed acute intracranial abnormalities, dislocation or fractures. ECG showed sinus tachycardia, heart rate 113 beats per minute with acute ischemic changes. ED tx: Ampicillin 2 g IV, Keppra 1 g IV, NS 1 L, Tylenol 1 g IV, ceftriaxone 1 g IV, dexamethasone 10 g IV, vancomycin 1750 mg IV. Review of Systems Review of Systems: All 12 systems were reviewed and normal except as noted in HPI. [facility] Medical History Seizure Brain cancer Metabolic alkalosis with respiratory acidosis Encounter for palliative care Sebaceous cyst of axilla Essential hypertension PVC (premature ventricular contraction) PAC (premature atrial contraction) Torticollis, acquired UTI (urinary tract infection), bacterial Bladder incontinence Unspecified urinary incontinence Abscess Symptomatic PVCs Physical exam, annual Stroke Insomnia Closed fracture of fibula with routine healing Fracture of distal end of fibula Right ankle pain HTN (hypertension) DVT (deep venous thrombosis) Family History Mother Diabetes Father Heart disease Family/Other Breast cancer Brain cancer Diabetes Surgical History Hx of section Hx of tubal ligation H/O craniotomy Social History Household Members: Spouse Housing: House Housing Other:: Lives with Spouse Do you presently have visiting nurse or other home services: Yes ([employer]) Unable to assess alcohol history related to: Unable to respond Alcohol intake: never Patient Tobacco Use Status: Never used Tobacco e-Cigarette/Vaping Use: Never Used Second Hand Smoke Exposure: No Advance Directives: Yes Advance Directives on File: Yes Advance Directives Date on File: 02/12/20 Do you have a plan to hurt others: No Plan service: No Current occupational status: retired and disabled Cognitive needs: Yes Hearing needs: No Vision needs: Yes Meds Allergies Allergy/AdvReac Type Severity Reaction Status Date / Time apple [Apple] Allergy Severe THROAT Verified 08/18/23 12:22 SWELLING pollen extracts [POLLEN] Allergy Intermediate SNEEZING Verified 08/18/23 12:22 COUGHING ALOT kiwi AdvReac Intermediate VOMITING Verified 08/18/23 12:22 [Kiwi (Actinidia Chinensis)] avocado [Avocado] AdvReac Mild VOMITING Verified 08/18/23 12:22 Active Medications: Current Medications Ampicillin Sodium 2 gm/ Sodium (Chloride) 100 mls @ 200 mls/hr IV ONCE [facility] Last Infusion: 08/18/23 22:56 Dose: Infused Levetiracetam (Keppra) 1,000 mg in 100 mls @ 400 mls/hr IV Q12H ANTONIA Lorazepam (Lorazepam 2 Mg/Ml Vial) 2 mg IVPUSH ONCE PRN PRN Reason: Seizures Ondansetron HCl (Ondansetron Hcl 4 Mg/2 Ml Vial) 4 mg IVPUSH Q8H PRN PRN Reason: Nausea and Vomiting Sodium Chloride (0.9 % Sodium Chloride Flush 3 Ml Syringe) 3 ml IVFLUSH QSHIFT [facility] Home Medications ?Medication ?Instructions ?Recorded ?Confirmed ?Last Taken ?Type multivitamin 1 tab PO DAILY 03/30/22 08/18/23 08/17/23 08:00 History levetiracetam 100 mg/mL oral 1,000 mg PO BID 07/10/23 08/18/23 08/17/23 08:00 History solution albuterol sulfate 90 mcg/actuation 2 puff inhalation Q4H PRN SOB 08/18/23 08/18/23 Unknown History aerosol inhaler (Ventolin HFA) hydrochlorothiazide 25 mg tablet 25 mg PO DAILY 08/18/23 08/18/23 08/17/23 08:00 History rivaroxaban 20 mg tablet (Xarelto) 20 mg PO DAILY 08/18/23 08/18/23 08/17/23 08:00 History Physical Exam Vital Signs and Narrative: Vital Signs: Last Vital Signs Temp 100.7 F H 08/18/23 22:12 Pulse 100 08/18/23 22:12 Resp 22 H 08/18/23 22:12 BP 154/52 H 08/18/23 22:12 Pulse Ox 97 08/18/23 22:12 O2 Del Method Room Air 08/18/23 22:12 O2 Flow Rate 2 08/18/23 18:02 BMI result Body Mass Index 29.6 Constitutional - sleeping, open eyes upon calling name. Poorly interactive and very weak. Febrile. HEENT - Atraumatic head, neck contracted to the right (chronic), PERRLA. Heart - RRR. No murmur. Lungs - Normal lung expansion, Normal respiratory effort, No respiratory distress, CTA bilaterally Abdomen - NT / ND; +BS; No rebound or guarding Extremities - no calf tenderness bilaterally, no swelling Musculoskeletal - Normal inspection, normal ROM Skin - Warm/Dry Neurological - sleeping. Easy to arouse. No focal weakness grossly noted. Psychological - No agitation. Results Labs 08/18/23 13:19 08/18/23 13:19 Labs: Laboratory Results - last 24 hr 08/18/23 08/18/23 08/18/23 13:02 13:18 13:19 MCV 86.8 MCH 27.9 MCHC 32.1 RDW 13.8 Plt Count 277 D MPV 10.1 Immature Gran % (Auto) 0.5 H Neut % (Auto) 89.7 H Lymph % (Auto) 7.2 L [place]pson % (Auto) 2.1 Eos % (Auto) 0.0 Baso % (Auto) 0.5 Lymph # (Auto) 0.8 L [place] # (Auto) 0.2 Eos # (Auto) 0.0 Baso # (Auto) 0.1 Abs Immat Gran (auto) 0.05 H Absolute Neuts (auto) 9.8 H Absolute Nucleated RBC 0.000 Nucleated RBC % (auto) 0.0 Hold Blue Top SEE NOTE Anion Gap 13 Estim Creat Clear Calc 75.0 Estimated GFR > 60 Random Glucose 154 H Lactic Acid 2.5 H* Calcium 9.3 Total Bilirubin 0.4 Direct Bilirubin 0.2 AST 19 ALT 32 H Alkaline Phosphatase 120 H Troponin I High Sens 6.3 D Total Protein 7.8 Albumin 4.0 Lipase 25 Urine Color Urine Appearance Urine pH Ur Specific [place] Urine Protein Urine Glucose (UA) Urine Ketones Urine Blood Urine Nitrite Ur Leukocyte Esterase Urine RBC Urine WBC Ur Squamous Epith Cells Urine Bacteria Hyaline Casts CSF Tube Number CSF Volume CSF Appearance CSF Color CSF WBC CSF RBC CSF Neutrophils CSF Lymphocytes CSF Monocytes % CSF Appearance (b) CSF Glucose CSF Total Protein Salicylates Urine Opiates Screen Ur Buprenorphine Scrn Ur Oxycodone Screen Urine Methadone Screen Urine Fentanyl Screen Acetaminophen Ur Barbiturates Screen Ur Phencyclidine Scrn Ur Amphetamines Screen U Benzodiazepines Scrn Urine Cocaine Screen U Marijuana (THC) Screen Ethyl Alcohol Influenza Type A (PCR) NEGATIVE Influenza Type B (PCR) NEGATIVE RSV RNA Qual (PCR) NEGATIVE SARS-CoV-2 RNA (RT-PCR) NEGATIVE 08/18/23 08/18/23 08/18/23 15:22 19:48 19:48 MCV MCH MCHC RDW Plt Count MPV Immature Gran % (Auto) Neut % (Auto) Lymph % (Auto) Upson % (Auto) Eos % (Auto) Baso % (Auto) Lymph # (Auto) Upson # (Auto) Eos # (Auto) Baso # (Auto) Abs Immat Gran (auto) Absolute Neuts (auto) Absolute Nucleated RBC Nucleated RBC % (auto) Hold Blue Top Anion Gap Estim Creat Clear Calc Estimated GFR Random Glucose Lactic Acid Calcium Total Bilirubin Direct Bilirubin AST ALT Alkaline Phosphatase Troponin I High Sens 8.1 Total Protein Albumin Lipase Urine Color Urine Appearance Urine pH Ur Specific [place] Urine Protein Urine Glucose (UA) Urine Ketones Urine Blood Urine Nitrite Ur Leukocyte Esterase Urine RBC Urine WBC Ur Squamous Epith Cells Urine Bacteria Hyaline Casts CSF Tube Number 1 4 CSF Volume 1.0 CSF Appearance CLEAR CSF Color COLORLESS CSF WBC 2 CSF RBC 186 CSF Neutrophils 8 CSF Lymphocytes 80 CSF Monocytes % 12 CSF Appearance (b) Clear, Colorless CSF Glucose 85 CSF Total Protein 48.8 H Salicylates Urine Opiates Screen Ur Buprenorphine Scrn Ur Oxycodone Screen Urine Methadone Screen Urine Fentanyl Screen Acetaminophen Ur Barbiturates Screen Ur Phencyclidine Scrn Ur Amphetamines Screen U Benzodiazepines Scrn Urine Cocaine Screen U Marijuana (THC) Screen Ethyl Alcohol Influenza Type A (PCR) Influenza Type B (PCR) RSV RNA Qual (PCR) SARS-CoV-2 RNA (RT-PCR) 08/18/23 08/18/23 20:01 20:12 MCV MCH MCHC RDW Plt Count MPV Immature Gran % (Auto) Neut % (Auto) Lymph % (Auto) Upson % (Auto) Eos % (Auto) Baso % (Auto) Lymph # (Auto) Upson # (Auto) Eos # (Auto) Baso # (Auto) Abs Immat Gran (auto) Absolute Neuts (auto) Absolute Nucleated RBC Nucleated RBC % (auto) Hold Blue Top Anion Gap Estim Creat Clear Calc Estimated GFR Random Glucose Lactic Acid 1.9 Calcium Total Bilirubin Direct Bilirubin AST ALT Alkaline Phosphatase Troponin I High Sens Total Protein Albumin Lipase Urine Color Yellow Urine Appearance Cloudy Urine pH 6.0 Ur Specific [place] 1.015 Urine Protein Trace Urine Glucose (UA) Negative Urine Ketones 40 Urine Blood Small (1+) H Urine Nitrite Negative Ur Leukocyte Esterase Moderate (2+) H Urine RBC 3-5 H Urine WBC >50 H Ur Squamous Epith Cells 0-2 Urine Bacteria 4+ Hyaline Casts 0-2 CSF Tube Number CSF Volume CSF Appearance CSF Color CSF WBC CSF RBC CSF Neutrophils CSF Lymphocytes CSF Monocytes % CSF Appearance (b) CSF Glucose CSF Total Protein Salicylates < 5.0 L Urine Opiates Screen Not Detected Ur Buprenorphine Scrn Not Detected Ur Oxycodone Screen Not Detected Urine Methadone Screen Not Detected Urine Fentanyl Screen Not Detected Acetaminophen < 3 Ur Barbiturates Screen Not Detected Ur Phencyclidine Scrn Not Detected Ur Amphetamines Screen Not Detected U Benzodiazepines Scrn POSITIVE H Urine Cocaine Screen Not Detected U Marijuana (THC) Screen Not Detected Ethyl Alcohol < 10 Influenza Type A (PCR) Influenza Type B (PCR) RSV RNA Qual (PCR) SARS-CoV-2 RNA (RT-PCR) Imaging Radiologist's Impressions: Impressions Chest X-Ray 08/18/23 14:00 IMPRESSION: Unremarkable examination. Cervical Spine CT 08/18/23 14:47 IMPRESSION: Limited exam due to patient positioning. Multilevel degenerative changes. No fracture or dislocation seen. Fleischner guidelines were followed. Head CT 08/18/23 14:47 IMPRESSION: Very limited exam due to motion. No acute findings seen and no change from November 2022. Assessment and Plan (1) Encephalopathy acute: Status: Acute (2) Severe sepsis: Status: Acute (3) Seizure: Status: Acute (4) Acute UTI: Status: Acute Plan Juani Ferro a 68 y/o woman with PNHx significant for brain cancer status post chemotherapy + radiation and seizures on Keppra admitted with: Severe sepsis due to urinary tract infection associated with acute encephalopathy. Admit to hospitalist service. IVFs 30 ml/kg. Continue empiric IV antibiotic therapy with vancomycin and Zosyn. Bloody urine culture obtained -we will follow results. Seizureslikely trigger by sepsis/UTI. Aspiration and seizure precautions. NPO. Neuro checks q.4 hours. Continue Keppra 1 g IV twice daily. CSF analysis is not consistent with meningitis. Neurology consult. Essential hypertension. Anti-HTN meds (hydrochlorothiazide and amlodipine) on hold due to soft BP and NPO status. Continue to monitor. Hyperlipidemia. Continue. History of DVT. Continue Xarelto. Old CVA. Continue aspirin, Xarelto and statin. DVT prophylaxis: SCDs and Xarelto Code status: Full (per ) Patient we will need hospitalization for at least 2 midnights for severe sepsis due to UTI and seizure treatment with IV antibiotics and IV fluids; as well as continuous cardiac and neurological status monitoring. Quality Stroke Does the patient have a stroke diagnosis?: No VTE Prior VTE?: No VTE Risk Level:: Medical - moderate - high VTE Device Contraindication: N/A - Device Ordered VTE Drug Contraindication: N/A - Med Ordered
[2023-08-19 00:42] LABS: Basophils Percent Auto 0.2 % (0-2); Hematocrit 42.1 % (37.0-47.0); Hemoglobin 13.8 g/dl (12.0-16.0); Imm Gran Abs Auto 0.03 X10*3/uL (0.00-0.03); Imm Gran Pct Auto 0.3 % (0.0-0.4); Lactic Acid 0.7 mmol/L (0.5-2.0); Lymphocytes Absolute Auto 0.7 X10*3/uL (1.2-4.9); Lymphocytes Percent Auto 6.5 % (20-40); MANUAL DIFF FLAG SCAN; Mean Corpuscular HGB Conc 32.8 g/dl (31.0-35.0); Mean Corpuscular Hemoglobin 27.6 pg (27.0-33.0); Mean Corpuscular Volume 84.2 fL (80.0-98.0); Mean Platelet Volume 10.3 fL (9.4-12.3); Monocytes Absolute Auto 0.1 X10*3/uL (0.1-1.2); Monocytes Percent Auto 0.6 % (2-11); Neutrophils Absolute Auto 9.9 x10*3/uL (2.0-8.3); Neutrophils Percent Auto 92.4 % (45-73); Platelet Count 259 X10*3/uL (160-400); Red Cell Distribution Width 13.8 % (11.0-16.0); SCAN SMEAR FLAG 1; White Blood Count 10.8 X10*3/uL (4.8-10.8)
[2023-08-19 00:47] LABS: Alanine Aminotransferase 26 U/L (0-31); Albumin Level 3.8 g/dL (3.5-5.0); Alkaline Phosphatase 110 U/L (39-117); Anion Gap 14 (12-20); Aspartate Amino Transferase 18 U/L (5-31); Bilirubin Total 0.4 mg/dL (0.0-1.0); Blood Urea Nitrogen 9 mg/dL (9-16); Calcium 9.3 mg/dL (8.4-10.2); Carbon Dioxide 22 mmol/L (22-29); Chloride 105 mmol/L (96-108); Creatinine Clr Calc Pharmacy 82.1; Estimated Glomerular Filt Rate > 60; Glucose Random 142 mg/dL (60-115); Potassium 3.9 mmol/L (3.3-5.1); Sodium 137 mmol/L (135-145); Total Protein 7.3 g/dL (6.5-8.0)
[2023-08-19] MEDS: Lactated Ringers 1,000 ML 125 ML IVCONT ×4 (00:51→22:32)
[2023-08-19 00:59] LABS: SLIDE REVIEW VERIFIED
[2023-08-19] MEDS: Lactated Ringers 1,000 ML 999 ML IV (01:14)
[2023-08-19 07:04] LABS: MANUAL DIFF FLAG NO
[2023-08-19 07:20] LABS: Basophils Percent Auto 0.2 % (0-2); Hematocrit 40.8 % (37.0-47.0); Hemoglobin 13.6 g/dl (12.0-16.0); Imm Gran Abs Auto 0.03 X10*3/uL (0.00-0.03); Imm Gran Pct Auto 0.5 % (0.0-0.4); Lymphocytes Absolute Auto 1.1 X10*3/uL (1.2-4.9); Lymphocytes Percent Auto 18.3 % (20-40); Mean Corpuscular HGB Conc 33.3 g/dl (31.0-35.0); Mean Corpuscular Hemoglobin 28.2 pg (27.0-33.0); Mean Corpuscular Volume 84.5 fL (80.0-98.0); Mean Platelet Volume 10.7 fL (9.4-12.3); Monocytes Absolute Auto 0.1 X10*3/uL (0.1-1.2); Monocytes Percent Auto 2.3 % (2-11); Neutrophils Absolute Auto 4.8 x10*3/uL (2.0-8.3); Neutrophils Percent Auto 78.7 % (45-73); Platelet Count 261 X10*3/uL (160-400); Red Blood Count 4.83 X10*6/uL (4.20-5.50); Red Cell Distribution Width 13.7 % (11.0-16.0); White Blood Count 6.1 X10*3/uL (4.8-10.8)
--- NOTE | 2023-08-19 07:37 | HO.PM.IMPN ---
Subjective Subjective Date of Service: 08/19/23 Interval History: Seen in follow up for UTI, sepsis, encephalopathy Interval history: Vitals improved, remains encephalopathic Review of Systems Review of Systems: Yes Unobtainable due to mental status Physical Exam Vital Signs: Vital Signs: Last Vital Signs Temp 96.9 F 08/19/23 04:00 Pulse 102 H 08/19/23 04:00 Resp 18 08/19/23 04:00 BP 142/82 H 08/19/23 04:00 Pulse Ox 99 08/19/23 04:00 O2 Del Method Room Air 08/19/23 04:00 O2 Flow Rate 2 08/18/23 18:02 BMI result Body Mass Index 29.4 Constitutional - Awake and Alert, No apparent distress Eyes - PERRLA, EOMI Cardiovascular - S1S2, RRR, No edema Respiratory - Normal lung expansion, Normal respiratory effort, No respiratory distress, CTA bilaterally Gastrointestinal - NT / ND; +BS; No rebound or guarding Extremities - no calf tenderness bilaterally, no swelling Musculoskeletal - Normal inspection, normal ROM , head contracted to right (chronic) Skin - Warm/Dry Neurological - Alert & disoriented, nodding inappropriately, otherwise nonverbal Objective Data Active Medications Aspirin (Aspirin Enteric Coated 81 Mg Tablet.Dr) 81 mg PO DAILY [facility] Atorvastatin Calcium (Atorvastatin Calcium 40 Mg Tablet) 40 mg PO DAILY [facility] Ampicillin Sodium 2 gm/ Sodium (Chloride) 100 mls @ 200 mls/hr IV ONCE [facility] Last Infusion: 08/18/23 22:56 Dose: Infused Documented By: JENNIFER Levetiracetam (Keppra) 1,000 mg in 100 mls @ 400 mls/hr IV Q12H [facility] Lactated Ringer's (Lr) 1,000 mls @ 125 mls/hr IVCONT .Q8H [facility] Last Admin: 08/19/23 00:51 Dose: 125 mls/hr Documented By: JENNIFER Lorazepam (Lorazepam 2 Mg/Ml Vial) 2 mg IVPUSH ONCE PRN PRN Reason: Seizures Ondansetron HCl (Ondansetron Hcl 4 Mg/2 Ml Vial) 4 mg IVPUSH Q8H PRN PRN Reason: Nausea and Vomiting Rivaroxaban (Rivaroxaban 20 Mg Tablet) 20 mg PO DAILY [facility] Sodium Chloride (0.9 % Sodium Chloride Flush 3 Ml Syringe) 3 ml IVFLUSH QSHIFT [facility] Labs 08/19/23 06:40 08/19/23 06:40 Labs: Laboratory Results - last 24 hr 08/18/23 08/18/23 08/18/23 13:02 13:18 13:19 MCV 86.8 MCH 27.9 MCHC 32.1 RDW 13.8 Plt Count 277 D MPV 10.1 Immature Gran % (Auto) 0.5 H Neut % (Auto) 89.7 H Lymph % (Auto) 7.2 L [place] % (Auto) 2.1 Eos % (Auto) 0.0 Baso % (Auto) 0.5 Lymph # (Auto) 0.8 L [place] # (Auto) 0.2 Eos # (Auto) 0.0 Baso # (Auto) 0.1 Abs Immat Gran (auto) 0.05 H Absolute Neuts (auto) 9.8 H Absolute Nucleated RBC 0.000 Nucleated RBC % (auto) 0.0 Smear Tech's Comments Hold Blue Top SEE NOTE Anion Gap 13 Estim Creat Clear Calc 75.0 Estimated GFR > 60 Random Glucose 154 H Lactic Acid 2.5 H* Calcium 9.3 Total Bilirubin 0.4 Direct Bilirubin 0.2 AST 19 ALT 32 H Alkaline Phosphatase 120 H Troponin I High Sens 6.3 D Total Protein 7.8 Albumin 4.0 Lipase 25 Urine Color Urine Appearance Urine pH Ur Specific [place] Urine Protein Urine Glucose (UA) Urine Ketones Urine Blood Urine Nitrite Ur Leukocyte Esterase Urine RBC Urine WBC Ur Squamous Epith Cells Urine Bacteria Hyaline Casts CSF Tube Number CSF Volume CSF Appearance CSF Color CSF WBC CSF RBC CSF Neutrophils CSF Lymphocytes CSF Monocytes % CSF Appearance (b) CSF Glucose CSF Total Protein Salicylates Urine Opiates Screen Ur Buprenorphine Scrn Ur Oxycodone Screen Urine Methadone Screen Urine Fentanyl Screen Acetaminophen Ur Barbiturates Screen Ur Phencyclidine Scrn Ur Amphetamines Screen U Benzodiazepines Scrn Urine Cocaine Screen U Marijuana (THC) Screen Ethyl Alcohol Influenza Type A (PCR) NEGATIVE Influenza Type B (PCR) NEGATIVE RSV RNA Qual (PCR) NEGATIVE SARS-CoV-2 RNA (RT-PCR) NEGATIVE 08/18/23 08/18/23 08/18/23 15:22 19:48 19:48 MCV MCH MCHC RDW Plt Count MPV Immature Gran % (Auto) Neut % (Auto) Lymph % (Auto) [place] % (Auto) Eos % (Auto) Baso % (Auto) Lymph # (Auto) [place] # (Auto) Eos # (Auto) Baso # (Auto) Abs Immat Gran (auto) Absolute Neuts (auto) Absolute Nucleated RBC Nucleated RBC % (auto) Smear Tech's Comments Hold Blue Top Anion Gap Estim Creat Clear Calc Estimated GFR Random Glucose Lactic Acid Calcium Total Bilirubin Direct Bilirubin AST ALT Alkaline Phosphatase Troponin I High Sens 8.1 Total Protein Albumin Lipase Urine Color Urine Appearance Urine pH Ur Specific [place] Urine Protein Urine Glucose (UA) Urine Ketones Urine Blood Urine Nitrite Ur Leukocyte Esterase Urine RBC Urine WBC Ur Squamous Epith Cells Urine Bacteria Hyaline Casts CSF Tube Number 1 4 CSF Volume 1.0 CSF Appearance CLEAR CSF Color COLORLESS CSF WBC 2 CSF RBC 186 CSF Neutrophils 8 CSF Lymphocytes 80 CSF Monocytes % 12 CSF Appearance (b) Clear, Colorless CSF Glucose 85 CSF Total Protein 48.8 H Salicylates Urine Opiates Screen Ur Buprenorphine Scrn Ur Oxycodone Screen Urine Methadone Screen Urine Fentanyl Screen Acetaminophen Ur Barbiturates Screen Ur Phencyclidine Scrn Ur Amphetamines Screen U Benzodiazepines Scrn Urine Cocaine Screen U Marijuana (THC) Screen Ethyl Alcohol Influenza Type A (PCR) Influenza Type B (PCR) RSV RNA Qual (PCR) SARS-CoV-2 RNA (RT-PCR) 08/18/23 08/18/23 08/19/23 20:01 20:12 00:19 MCV 84.2 MCH 27.6 MCHC 32.8 RDW 13.8 Plt Count 259 MPV 10.3 Immature Gran % (Auto) 0.3 Neut % (Auto) 92.4 H Lymph % (Auto) 6.5 L [place] % (Auto) 0.6 L Eos % (Auto) 0.0 Baso % (Auto) 0.2 Lymph # (Auto) 0.7 L [place] # (Auto) 0.1 Eos # (Auto) 0.0 Baso # (Auto) 0.0 Abs Immat Gran (auto) 0.03 Absolute Neuts (auto) 9.9 H Absolute Nucleated RBC 0.000 Nucleated RBC % (auto) 0.0 Smear Tech's Comments VERIFIED Hold Blue Top Anion Gap 14 Estim Creat Clear Calc 82.1 Estimated GFR > 60 Random Glucose 142 H Lactic Acid 1.9 0.7 Calcium 9.3 Total Bilirubin 0.4 Direct Bilirubin AST 18 ALT 26 Alkaline Phosphatase 110 Troponin I High Sens Total Protein 7.3 Albumin 3.8 Lipase Urine Color Yellow Urine Appearance Cloudy Urine pH 6.0 Ur Specific [place] 1.015 Urine Protein Trace Urine Glucose (UA) Negative Urine Ketones 40 Urine Blood Small (1+) H Urine Nitrite Negative Ur Leukocyte Esterase Moderate (2+) H Urine RBC 3-5 H Urine WBC >50 H Ur Squamous Epith Cells 0-2 Urine Bacteria 4+ Hyaline Casts 0-2 CSF Tube Number CSF Volume CSF Appearance CSF Color CSF WBC CSF RBC CSF Neutrophils CSF Lymphocytes CSF Monocytes % CSF Appearance (b) CSF Glucose CSF Total Protein Salicylates < 5.0 L Urine Opiates Screen Not Detected Ur Buprenorphine Scrn Not Detected Ur Oxycodone Screen Not Detected Urine Methadone Screen Not Detected Urine Fentanyl Screen Not Detected Acetaminophen < 3 Ur Barbiturates Screen Not Detected Ur Phencyclidine Scrn Not Detected Ur Amphetamines Screen Not Detected U Benzodiazepines Scrn POSITIVE H Urine Cocaine Screen Not Detected U Marijuana (THC) Screen Not Detected Ethyl Alcohol < 10 Influenza Type A (PCR) Influenza Type B (PCR) RSV RNA Qual (PCR) SARS-CoV-2 RNA (RT-PCR) 08/19/23 06:40 MCV 84.5 MCH 28.2 MCHC 33.3 RDW 13.7 Plt Count 261 MPV 10.7 Immature Gran % (Auto) 0.5 H Neut % (Auto) 78.7 H Lymph % (Auto) 18.3 L [place] % (Auto) 2.3 Eos % (Auto) 0.0 Baso % (Auto) 0.2 Lymph # (Auto) 1.1 L [place] # (Auto) 0.1 Eos # (Auto) 0.0 Baso # (Auto) 0.0 Abs Immat Gran (auto) 0.03 Absolute Neuts (auto) 4.8 Absolute Nucleated RBC 0.000 Nucleated RBC % (auto) 0.0 Smear Tech's Comments Hold Blue Top Anion Gap Estim Creat Clear Calc Estimated GFR Random Glucose Lactic Acid Calcium Total Bilirubin Direct Bilirubin AST ALT Alkaline Phosphatase Troponin I High Sens Total Protein Albumin Lipase Urine Color Urine Appearance Urine pH Ur Specific [place] Urine Protein Urine Glucose (UA) Urine Ketones Urine Blood Urine Nitrite Ur Leukocyte Esterase Urine RBC Urine WBC Ur Squamous Epith Cells Urine Bacteria Hyaline Casts CSF Tube Number CSF Volume CSF Appearance CSF Color CSF WBC CSF RBC CSF Neutrophils CSF Lymphocytes CSF Monocytes % CSF Appearance (b) CSF Glucose CSF Total Protein Salicylates Urine Opiates Screen Ur Buprenorphine Scrn Ur Oxycodone Screen Urine Methadone Screen Urine Fentanyl Screen Acetaminophen Ur Barbiturates Screen Ur Phencyclidine Scrn Ur Amphetamines Screen U Benzodiazepines Scrn Urine Cocaine Screen U Marijuana (THC) Screen Ethyl Alcohol Influenza Type A (PCR) Influenza Type B (PCR) RSV RNA Qual (PCR) SARS-CoV-2 RNA (RT-PCR) Microbiology Microbiology Results: Microbiology 08/18/23 19:48 Gram Stain - Final Cerebrospinal Fluid CSF Examination - Final Fluid Description - Final Assessment and Plan (1) Severe sepsis: Status: Acute (2) Acute UTI: Status: Acute (3) Encephalopathy acute: Status: Acute (4) Seizure: Status: Acute Plan Juani Ferro a 68 y/o woman with PNHx significant for brain cancer status post chemotherapy + radiation and seizures on Keppra admitted for UTI with sepsis and acute metabolic encephalopathy #Acute UTI with severe sepsis- met severe sepsis in ED 08/17 at 1318 -sepsis resolved, received IVF bolus in ED -continue 1g iv cetriaxone (initiated 08/17) -follow cbc/cultures #Acute metabolic encephalopathy -due to above, LP not indicative of meningitis -plan as above -monitor mentation, check nursing swallow eval #Breakthrough seizure -likely in setting of infection -Currently NPO, continue IV keppra -seizure precautions #HTN -resume amlodipine, hctz #Hx DVT -xarelto #hld -statin #hx cva -continue statin, asa, xarelto dvt prophylaxis- xarelto full code pt requires ongoing hospital stay due to uti with sepsis and persistent metabolic encephalopathy requiring iv abx, close monitoring of mentation and diet advancement once mentation improves Quality Stroke Does the patient have a stroke diagnosis?: No VTE Prior VTE?: No VTE Risk Level:: Medical - moderate - high VTE Device Contraindication: N/A - Device Ordered VTE Drug Contraindication: N/A - Med Ordered
[2023-08-19 07:55] LABS: Alanine Aminotransferase 24 U/L (0-31); Albumin Level 3.5 g/dL (3.5-5.0); Alkaline Phosphatase 104 U/L (39-117); Anion Gap 11 (12-20); Aspartate Amino Transferase 17 U/L (5-31); Bilirubin Total 0.4 mg/dL (0.0-1.0); Blood Urea Nitrogen 9 mg/dL (9-16); Calcium 9.3 mg/dL (8.4-10.2); Carbon Dioxide 27 mmol/L (22-29); Chloride 105 mmol/L (96-108); Creatinine Clr Calc Pharmacy 81.8; Estimated Glomerular Filt Rate > 60; Glucose Random 142 mg/dL (60-115); Potassium 3.7 mmol/L (3.3-5.1); Sodium 139 mmol/L (135-145); Total Protein 6.9 g/dL (6.5-8.0)
[2023-08-19] MEDS: 0.9 % Sodium Chloride Flush 3 ML SYRINGE IVFLUSH ×2 (08:10→14:51)
[2023-08-19] MEDS: levETIRAcetam in NaCl (iso-os) 1,000 MG/100 ML PIGGYBACK 400 MG IV ×2 (08:10→20:07)
--- NOTE | 2023-08-19 09:52 | MHC.CM.PN ---
IMM 08/18. CM intake assessment and IMM addressed with pts /HCP Abdirahman present at bedside. Per Abdirahman, the pt does not want to speak right now Pt resting comfortably with eyes closed, breathing even and non-labored. Per Abdirahman, pt lives at home with him and receives [employer] services daily, she uses a walker and a wheelchair. Abdirahman will transport her home at discharge. HCP on file and verified. Per Abdirahman, pt has a PCP but he doesn't know their name.
[2023-08-19] MEDS: amLODIPine Besylate 5 MG TABLET PO (14:50)
[2023-08-19] MEDS: cefTRIAXone sodium 1 GM in 0.9 % Sodium Chloride 50 ML IV (17:59)
[2023-08-20] VITALS (8 sets, daily range): BP systolic 140–170; BP diastolic 62–82; PULSE 65–76; RESP 16–20; TEMP 36–36.7; O2SAT 95–100
[2023-08-20] MEDS: Lactated Ringers 1,000 ML 125 ML IVCONT ×2 (06:22→17:23)
[2023-08-20 07:22] LABS: Anion Gap 12 (12-20); Blood Urea Nitrogen 10 mg/dL (9-16); Calcium 8.7 mg/dL (8.4-10.2); Carbon Dioxide 29 mmol/L (22-29); Chloride 105 mmol/L (96-108); Creatinine Clr Calc Pharmacy 85.9; Estimated Glomerular Filt Rate > 60; Glucose Random 84 mg/dL (60-115); Potassium 3.2 mmol/L (3.3-5.1); Sodium 143 mmol/L (135-145)
--- NOTE | 2023-08-20 07:24 | HO.PM.IMPN ---
Subjective Subjective Date of Service: 08/20/23 Interval History: Seen in follow up for UTI, sepsis, encephalopathy Interval history: Answering some questions appropriately, more verbal. Denies complaints. 6 beat run NSVT this am. No palpitations, sob, lightheadedness, cp. Review of Systems Review of Systems: Yes all other systems are reviewed and are negative Physical Exam Vital Signs: Vital Signs: Last Vital Signs Temp 97.8 F 08/20/23 04:00 Pulse 69 08/20/23 04:00 Resp 16 08/20/23 04:00 BP 160/80 H 08/20/23 04:00 Pulse Ox 98 08/20/23 04:00 O2 Del Method Room Air 08/20/23 04:00 O2 Flow Rate 2 08/18/23 18:02 BMI result Body Mass Index 29.4 Constitutional - Awake and Alert, No apparent distress Eyes - PERRLA, EOMI Cardiovascular - S1S2, RRR, No edema Respiratory - Normal lung expansion, Normal respiratory effort, No respiratory distress, CTA bilaterally Gastrointestinal - NT / ND; +BS; No rebound or guarding Extremities - no calf tenderness bilaterally, no swelling Musculoskeletal - chronic torticollis Skin - Warm/Dry Neurological - Alert & oriented to self, answering some questions Psychological - Appropriate affect Objective Data Active Medications Amlodipine Besylate (Amlodipine Besylate 5 Mg Tablet) 5 mg PO DAILY [facility]; Protocol Last Admin: 08/19/23 14:50 Dose: 5 mg Documented By: AMANDO Aspirin (Aspirin Enteric Coated 81 Mg Tablet.) 81 mg PO DAILY [facility] Last Admin: 08/19/23 08:09 Dose: Not Given Documented By: AMANDO Non-Admin Reason: NPO Atorvastatin Calcium (Atorvastatin Calcium 40 Mg Tablet) 40 mg PO DAILY [facility] Last Admin: 08/19/23 08:09 Dose: Not Given Documented By: AMANDO Non-Admin Reason: NPO Hydralazine HCl (Hydralazine Hcl 20 Mg/Ml Vial) 5 mg IVPUSH Q6H PRN; Protocol PRN Reason: Sbp>180 Hydrochlorothiazide (Hydrochlorothiazide 25 Mg Tablet) 25 mg PO DAILY [facility]; Protocol Ampicillin Sodium 2 gm/ Sodium (Chloride) 100 mls @ 200 mls/hr IV ONCE [facility] Last Infusion: 08/18/23 22:56 Dose: Infused Documented By: JENNIFER Levetiracetam (Keppra) 1,000 mg in 100 mls @ 400 mls/hr IV Q12H [facility] Last Infusion: 08/19/23 20:58 Dose: Infused Documented By: NICHOLAS Lactated Ringer's (Lr) 1,000 mls @ 125 mls/hr IVCONT .Q8H [facility] Last Admin: 08/20/23 06:22 Dose: 125 mls/hr Documented By: NICHOLAS Ceftriaxone Sodium 1 gm/ (Sodium Chloride) 50 mls @ 100 mls/hr IV Q24H [facility] Last Infusion: 08/19/23 18:30 Dose: Infused Documented By: AMANDO Lorazepam (Lorazepam 2 Mg/Ml Vial) 2 mg IVPUSH ONCE PRN PRN Reason: Seizures Ondansetron HCl (Ondansetron Hcl 4 Mg/2 Ml Vial) 4 mg IVPUSH Q8H PRN PRN Reason: Nausea and Vomiting Rivaroxaban (Rivaroxaban 20 Mg Tablet) 20 mg PO DAILY [facility] Last Admin: 08/19/23 08:09 Dose: Not Given Documented By: AMANDO Non-Admin Reason: NPO Sodium Chloride (0.9 % Sodium Chloride Flush 3 Ml Syringe) 3 ml IVFLUSH QSHIFT [facility] Last Admin: 08/19/23 22:33 Dose: Not Given Documented By: NICHOLAS Non-Admin Reason: No Access Labs 08/19/23 06:40 08/20/23 06:56 Labs: Laboratory Results - last 24 hr 08/19/23 08/20/23 06:40 06:56 Hold Purple Top SEE NOTE Anion Gap 11 L 12 Estim Creat Clear Calc 81.8 85.9 Estimated GFR > 60 > 60 Random Glucose 142 H 84 Calcium 9.3 8.7 D Magnesium 2.0 Total Bilirubin 0.4 AST 17 ALT 24 Alkaline Phosphatase 104 Total Protein 6.9 Albumin 3.5 Microbiology Microbiology Results: Microbiology 08/18/23 20:24 Blood Culture - Preliminary Blood - Venous No growth after 24 hours. 08/18/23 20:01 Blood Culture - Preliminary Blood - Venous No growth after 24 hours. 08/18/23 Unknown Urine Culture - Preliminary Urine clean catch - Clean Catch Midstream Gram negative lilian 08/18/23 19:48 Gram Stain - Final Cerebrospinal Fluid CSF Examination - Final Fluid Description - Final CSF Culture - Preliminary No growth to date. Assessment and Plan (1) Severe sepsis: Status: Acute (2) Acute UTI: Status: Acute (3) Encephalopathy acute: Status: Acute (4) Seizure: Status: Acute (5) Hypokalemia: Status: Acute (6) NSVT (nonsustained ventricular tachycardia): Status: Acute Plan Jauni Ferro a 68 y/o woman with PNHx significant for brain cancer status post chemotherapy + radiation and seizures on Keppra admitted for UTI with sepsis and acute metabolic encephalopathy #Acute UTI with severe sepsis- met severe sepsis in ED 08/17 at 1318 -sepsis resolved, received IVF bolus in ED -UC with pansensitive ecoli -continue 1g IV cetriaxone (initiated 08/17) -follow cbc/cultures #Acute metabolic encephalopathy- improving -due to above, LP not indicative of meningitis -plan as above -monitor mentation -repeat nursing bedside swallow eval, advance diet to ground/mech with 1:1 feeds #Breakthrough seizure -likely in setting of infection -Diet advanced, change IV keppra to home dose PO -seizure precautions #NSVT -6 beat run NSVT this am. Asypmptomatic -replete lytes -continue tele #Acute hypokalemia -dc hctz, add lisinopril 20mg daily -Give 20meq KCl IV, 40meq PO KCl -check mag, replete if inidcated -monitor on tele #HTN -resume amlodipine -change hctz to lisinopril #Hx DVT -xarelto #hld -statin #hx cva -continue statin, asa, xarelto dvt prophylaxis- xarelto full code pt requires ongoing hospital stay due to uti with sepsis and persistent, though slowly improving metabolic encephalopathy requiring iv abx, close monitoring of mentation and diet advancement once mentation improves Quality Stroke Does the patient have a stroke diagnosis?: No VTE Prior VTE?: No VTE Risk Level:: Medical - moderate - high VTE Device Contraindication: N/A - Device Ordered VTE Drug Contraindication: N/A - Med Ordered
[2023-08-20 09:30] LABS: Magnesium 1.9 mg/dL (1.6-2.6)
[2023-08-20] MEDS: amLODIPine Besylate 5 MG TABLET PO (09:56)
[2023-08-20] MEDS: Potassium Chloride Packet 20 MEQ PACKET 40 MEQ PO (09:56)
[2023-08-20] MEDS: Rivaroxaban 20 MG TABLET PO (09:57)
[2023-08-20] MEDS: Aspirin Enteric Coated 81 MG TABLET.DR PO (09:57)
[2023-08-20] MEDS: lisinopriL 20 MG TABLET PO (09:57)
[2023-08-20] MEDS: Atorvastatin Calcium 40 MG TABLET PO (09:57)
[2023-08-20] MEDS: 0.9 % Sodium Chloride Flush 3 ML SYRINGE IVFLUSH (09:58)
[2023-08-20] MEDS: Potassium Chloride/H20 10 MEQ/100 ML PIGGYBACK 100 MEQ IV ×2 (09:58→11:49)
[2023-08-20] MEDS: cefTRIAXone sodium 1 GM in 0.9 % Sodium Chloride 50 ML IV (17:23)
[2023-08-20] MEDS: Docusate Sodium 100 MG CAPSULE PO (21:04)
[2023-08-20] MEDS: levETIRAcetam Oral Soln 500 MG/5 ML 1000 MG PO (21:04)
[2023-08-21] VITALS (10 sets, daily range): BP systolic 128–182; BP diastolic 60–91; PULSE 60–72; RESP 16–20; TEMP 36.4–36.6; O2SAT 96–99
[2023-08-21 06:46] LABS: Anion Gap 8 (12-20); Blood Urea Nitrogen 11 mg/dL (9-16); Calcium 8.9 mg/dL (8.4-10.2); Carbon Dioxide 29 mmol/L (22-29); Chloride 108 mmol/L (96-108); Creatinine Clr Calc Pharmacy 84.5; Estimated Glomerular Filt Rate > 60; Glucose Random 101 mg/dL (60-115); Magnesium 1.9 mg/dL (1.6-2.6); Potassium 3.8 mmol/L (3.3-5.1); Sodium 141 mmol/L (135-145)
[2023-08-21] MEDS: amLODIPine Besylate 5 MG TABLET PO (10:17)
[2023-08-21] MEDS: Rivaroxaban 20 MG TABLET PO (10:18)
[2023-08-21] MEDS: Atorvastatin Calcium 40 MG TABLET PO (10:18)
[2023-08-21] MEDS: Cholecalciferol (Vitamin D3) 25 MCG TABLET 50 MCG PO (10:18)
[2023-08-21] MEDS: Aspirin Enteric Coated 81 MG TABLET.DR PO (10:18)
[2023-08-21] MEDS: 0.9 % Sodium Chloride Flush 3 ML SYRINGE IVFLUSH ×3 (10:19→20:13)
[2023-08-21] MEDS: lisinopriL 20 MG TABLET PO (10:19)
[2023-08-21] MEDS: levETIRAcetam Oral Soln 500 MG/5 ML 1000 MG PO ×2 (10:19→20:13)
--- NOTE | 2023-08-21 10:20 | P.PNIM_ITS ---
Subjective Subjective Date of Service: 08/21/23 Interval History: Seen in follow up for UTI, sepsis, encephalopathy Answering some questions appropriately, more verbal. Denies complaints. 6 beat run NSVT this am. No palpitations, sob, lightheadedness, cp. Review of Systems Review of Systems: Yes all other systems are reviewed and are negative Physical Exam 2 Vital Signs: Vital Signs: Last Vital Signs Temp 97.5 F 08/21/23 08:00 Pulse 72 08/21/23 08:00 Resp 16 08/21/23 08:00 BP 179/85 H 08/21/23 08:00 Pulse Ox 97 08/21/23 08:00 O2 Del Method Room Air 08/21/23 08:00 O2 Flow Rate 2 08/18/23 18:02 BMI result Body Mass Index 29.4 Appearing in no acute distress lung sounds are clear to auscultation heart regular rate rhythm, clear S1, S2 positive bowel sounds, abdomen is soft, nontender neuro patient is alert x3, no focal deficits Objective Data Active Medications Albuterol Sulfate (Albuterol Sulfate 90 Mcg 8 Gm Inhaler) 2 puff INHALE Q4H PRN PRN Reason: Shortness of Breath Amlodipine Besylate (Amlodipine Besylate 5 Mg Tablet) 5 mg PO DAILY [facility]; Protocol Last Admin: 08/20/23 09:56 Dose: 5 mg Documented By: AMANDO Aspirin (Aspirin Enteric Coated 81 Mg Tablet.) 81 mg PO DAILY [facility] Last Admin: 08/20/23 09:57 Dose: 81 mg Documented By: AMANDO Atorvastatin Calcium (Atorvastatin Calcium 40 Mg Tablet) 40 mg PO DAILY [facility] Last Admin: 08/20/23 09:57 Dose: 40 mg Documented By: AMANDO Docusate Sodium (Docusate Sodium 100 Mg Capsule) 100 mg PO BEDTIME [facility] Last Admin: 08/20/23 21:04 Dose: 100 mg Documented By: NICHOLAS Hydralazine HCl (Hydralazine Hcl 20 Mg/Ml Vial) 5 mg IVPUSH Q6H PRN; Protocol PRN Reason: Sbp>180 Ampicillin Sodium 2 gm/ Sodium (Chloride) 100 mls @ 200 mls/hr IV ONCE [facility] Last Infusion: 08/18/23 22:56 Dose: Infused Documented By: JENNIFER Ceftriaxone Sodium 1 gm/ (Sodium Chloride) 50 mls @ 100 mls/hr IV Q24H [facility] Last Infusion: 08/20/23 18:35 Dose: Infused Documented By: AMANDO Levetiracetam (Levetiracetam Oral Soln 500 Mg/5 Ml) 1,000 mg PO BID [facility] Last Admin: 08/20/23 21:04 Dose: 1,000 mg Documented By: NICHOLAS Lisinopril (Lisinopril 20 Mg Tablet) 20 mg PO DAILY [facility]; Protocol Last Admin: 08/20/23 09:57 Dose: 20 mg Documented By: AMANDO Lorazepam (Lorazepam 2 Mg/Ml Vial) 2 mg IVPUSH ONCE PRN PRN Reason: Seizures Ondansetron HCl (Ondansetron Hcl 4 Mg/2 Ml Vial) 4 mg IVPUSH Q8H PRN PRN Reason: Nausea and Vomiting Rivaroxaban (Rivaroxaban 20 Mg Tablet) 20 mg PO DAILY [facility] Last Admin: 08/20/23 09:57 Dose: 20 mg Documented By: AMANDO Sodium Chloride (0.9 % Sodium Chloride Flush 3 Ml Syringe) 3 ml IVFLUSH QSHIFT [facility] Last Admin: 08/20/23 22:27 Dose: Not Given Documented By: NICHOLAS Non-Admin Reason: IV Running Vitamin D (Cholecalciferol (Vitamin D3) 25 Mcg Tablet) 50 mcg PO DAILY [facility] Labs 08/19/23 06:40 08/21/23 06:08 Labs: Laboratory Results - last 24 hr 08/21/23 06:08 Hold Purple Top SEE NOTE Anion Gap 8 L Estim Creat Clear Calc 84.5 Estimated GFR > 60 Random Glucose 101 Calcium 8.9 Magnesium 1.9 Microbiology Microbiology Results: Microbiology 08/18/23 19:48 Gram Stain - Final Cerebrospinal Fluid CSF Examination - Final Fluid Description - Final CSF Culture - Preliminary Culture in progress. 08/18/23 20:24 Blood Culture - Preliminary Blood - Venous No growth after 48 hours. 08/18/23 20:01 Blood Culture - Preliminary Blood - Venous No growth after 48 hours. 08/18/23 Unknown Urine Culture - Final Urine clean catch - Clean Catch Midstream Escherichia coli Assessment and Plan (1) Severe sepsis: Status: Acute (2) Acute UTI: Status: Acute (3) Encephalopathy acute: Status: Acute (4) Seizure: Status: Acute (5) Hypokalemia: Status: Acute (6) NSVT (nonsustained ventricular tachycardia): Status: Acute Plan 68 y/o woman with PNHx significant for brain cancer status post chemotherapy + radiation and seizures on Keppra admitted for UTI with sepsis and acute metabolic encephalopathy Acute UTI with severe sepsis sepsis resolved UC with pansensitive ecoli continue 1g IV cetriaxone (initiated 08/17) Acute metabolic encephalopathy- improving due to above, LP not indicative of meningitis plan as above monitor mentation repeat nursing bedside swallow eval, advance diet to ground/mech with 1:1 feeds Breakthrough seizure likely in setting of infection continu oral keppra seizure precautions NSVT 6 beat run NSVT Asypmptomatic replete lytes continue tele Acute hypokalemia. Resolved hctz stopped, lisinopril added replete potassium HTN resume amlodipine change hctz to lisinopril Hx DVT xarelto hld statin hx cva continue statin, asa, xarelto DVT prophylaxis- franny attending Dr. Puente full code pt requires ongoing hospital stay due to uti with sepsis and persistent, though slowly improving metabolic encephalopathy requiring iv abx, close monitoring of mentation and diet advancement once mentation improves Quality Stroke Does the patient have a stroke diagnosis?: No VTE Prior VTE?: No VTE Risk Level:: Medical - moderate - high VTE Device Contraindication: N/A - Device Ordered VTE Drug Contraindication: N/A - Med Ordered
--- NOTE | 2023-08-21 10:55 | MHC.SL.SWA ---
Speech Pathologist Impression: Risk of Aspiration Due to: Weak Cough Dysphasia Diet Status: Liquid Consistency and Strategies for Safe Swallow: Liquid Intake Recommendation: Thin Liquid Intake Strategies: Solid Food Consistency: Dietary Recommendations: Chopped/Advanced (NDD3) Additional Modifications to Solid Foods: Assure that patient is comfortably seated with head of bed elevated >70 Degrees. Patient requires 1-1 feeding, provide small bites and sips, and alternate liquids and solids. Place towel on patient to catch any drops or spills. Oral Medication Intake: Whole with Puree Please contact the pharmacy regarding appropriate crushable or liquid drug formulations that are available whenever modified delivery is recommended. Compensatory Strategies and Precautions to be Taken for Safe Swallow: Sitting Upright (90 deg) Liquids from Straw Small Bites and Sips Alternate Liquids/Solids Supervision While Eating and Drinking for Safe Swallow: Total Assistance (1:1) Foods to Avoid: Hard, dry or difficult to chew solids, too large pieces of food. Swallowing Recommended Treatments: Compens. Strategy Educat. Recommendation for Speech: Outpatient Speech Therapy Comment: Patient presents with some mildly reduced lingual range of motion and strength and mild oral phase dysphagia, and issues related to positioning and assistance for meals. Recommend UPGRADE diet to Chopped/Advanced (NDD3), as consistency resembles 's report of typical diet and patient presents mildly inefficient chewing of regular solids. Recommend THIN lqiuids, straw o.k. and preferred means of delivering liquids. Pills whole, likely best administered in puree. Patient will require 1-1 feeding and careful positioning during all meals. Assure that head of bed is at 70-90 degrees, and patient is in comfortable, supported seating position. MD/RD notified of recommendations by secure text, RN inperson. COMMUNITY ORGANIZATION WORKER to follow up 1-2 X for toleration of diet. Frequency/Duration: Date Range for Service Req: Timeline to reassess: Management Manager Clinican/Clinical Fellow: No Supervisory Statement: I have reviewed and agree with the student/clinical fellow's documentation: N/A Speech Language Pathologist: Arminda Corbett M.A., CCC-COMMUNITY ORGANIZATION WORKER
--- NOTE | 2023-08-21 11:39 | P.CNNE_ITS ---
History of Present Illness Data of Consult Service Date: 08/21/23 Primary Care Provider: Unknown Physician HPI Reason for consult: Seizure disorder 68 years old woman with right frontal malignant brain tumor status post 2 craniotomies, radiation therapy, and chemotherapy in 2009. Subsequent to that she had intractable epilepsy. This time she was in hospital for unrelated reason and also reported seizures. Her family reported that seizures otherwise were relatively controlled. I have not seen her for last 4 years. Review of Systems 2 Review of Systems: No recent trauma or fall PMFSH Past Medical History Medical History Seizure Brain cancer Metabolic alkalosis with respiratory acidosis Encounter for palliative care Sebaceous cyst of axilla Essential hypertension PVC (premature ventricular contraction) PAC (premature atrial contraction) Torticollis, acquired UTI (urinary tract infection), bacterial Bladder incontinence Unspecified urinary incontinence Abscess Symptomatic PVCs Physical exam, annual Stroke Insomnia Closed fracture of fibula with routine healing Fracture of distal end of fibula Right ankle pain HTN (hypertension) DVT (deep venous thrombosis) Family History Family History Mother Diabetes Father Heart disease Family/Other Breast cancer Brain cancer Diabetes Surgical History Surgical History Hx of section Hx of tubal ligation H/O craniotomy Social History Social History Household Members: Spouse Housing: Apartment Housing Other:: Lives with Spouse Do you presently have visiting nurse or other home services: Yes Unable to assess alcohol history related to: Unable to respond Alcohol intake: never Patient Tobacco Use Status: Never used Tobacco e-Cigarette/Vaping Use: Never Used Second Hand Smoke Exposure: No Advance Directives Date on File: 02/12/20 service: No Current occupational status: retired and disabled Cognitive needs: Yes Hearing needs: No Vision needs: Yes Meds Allergies Allergy/AdvReac Type Severity Reaction Status Date / Time apple [Apple] Allergy Severe THROAT Verified 08/18/23 12:22 SWELLING pollen extracts [POLLEN] Allergy Intermediate SNEEZING Verified 08/18/23 12:22 COUGHING ALOT kiwi AdvReac Intermediate VOMITING Verified 08/18/23 12:22 [Kiwi (Actinidia Chinensis)] avocado [Avocado] AdvReac Mild VOMITING Verified 08/18/23 12:22 Active Medications: Current Medications Albuterol Sulfate (Albuterol Sulfate 90 Mcg 8 Gm Inhaler) 2 puff INHALE Q4H PRN PRN Reason: Shortness of Breath Amlodipine Besylate (Amlodipine Besylate 5 Mg Tablet) 5 mg PO DAILY [facility]; Protocol Last Admin: 08/21/23 10:17 Dose: 5 mg Aspirin (Aspirin Enteric Coated 81 Mg Tablet.Dr) 81 mg PO DAILY [facility] Last Admin: 08/21/23 10:18 Dose: 81 mg Atorvastatin Calcium (Atorvastatin Calcium 40 Mg Tablet) 40 mg PO DAILY [facility] Last Admin: 08/21/23 10:18 Dose: 40 mg Docusate Sodium (Docusate Sodium 100 Mg Capsule) 100 mg PO BEDTIME [facility] Last Admin: 08/20/23 21:04 Dose: 100 mg Hydralazine HCl (Hydralazine Hcl 20 Mg/Ml Vial) 5 mg IVPUSH Q6H PRN; Protocol PRN Reason: Sbp>180 Ampicillin Sodium 2 gm/ Sodium (Chloride) 100 mls @ 200 mls/hr IV ONCE [facility] Last Infusion: 08/18/23 22:56 Dose: Infused Ceftriaxone Sodium 1 gm/ (Sodium Chloride) 50 mls @ 100 mls/hr IV Q24H [facility] Last Infusion: 08/20/23 18:35 Dose: Infused Levetiracetam (Levetiracetam Oral Soln 500 Mg/5 Ml) 1,000 mg PO BID [facility] Last Admin: 08/21/23 10:19 Dose: 1,000 mg Lisinopril (Lisinopril 20 Mg Tablet) 20 mg PO DAILY [facility]; Protocol Last Admin: 08/21/23 10:19 Dose: 20 mg Lorazepam (Lorazepam 2 Mg/Ml Vial) 2 mg IVPUSH ONCE PRN PRN Reason: Seizures Ondansetron HCl (Ondansetron Hcl 4 Mg/2 Ml Vial) 4 mg IVPUSH Q8H PRN PRN Reason: Nausea and Vomiting Rivaroxaban (Rivaroxaban 20 Mg Tablet) 20 mg PO DAILY [facility] Last Admin: 08/21/23 10:18 Dose: 20 mg Sodium Chloride (0.9 % Sodium Chloride Flush 3 Ml Syringe) 3 ml IVFLUSH QSHIFT [facility] Last Admin: 08/21/23 10:19 Dose: 3 ml Vitamin D (Cholecalciferol (Vitamin D3) 25 Mcg Tablet) 50 mcg PO DAILY [facility] Last Admin: 08/21/23 10:18 Dose: 50 mcg Home Medications ?Medication ?Instructions ?Recorded ?Confirmed ?Last Taken ?Type multivitamin 1 tab PO DAILY 03/30/22 08/18/23 08/17/23 08:00 History levetiracetam 100 mg/mL oral 1,000 mg PO BID 07/10/23 08/18/23 08/17/23 08:00 History solution albuterol sulfate 90 mcg/actuation 2 puff inhalation Q4H PRN SOB 08/18/23 08/18/23 Unknown History aerosol inhaler (Ventolin HFA) hydrochlorothiazide 25 mg tablet 25 mg PO DAILY 08/18/23 08/18/23 08/17/23 08:00 History rivaroxaban 20 mg tablet (Xarelto) 20 mg PO DAILY 08/18/23 08/18/23 08/17/23 08:00 History Physical Exam 2 Vital Signs: Vital Signs: Last Vital Signs Temp 97.5 F 08/21/23 11:37 Pulse 67 08/21/23 11:37 Resp 20 08/21/23 11:37 BP 145/67 H 08/21/23 11:37 Pulse Ox 99 08/21/23 11:37 O2 Del Method Room Air 08/21/23 11:37 O2 Flow Rate 2 08/18/23 18:02 BMI result Body Mass Index 29.4 Neuro: Other: Alert and awake with normal spontaneity of speech fluency comprehension and affect. Neck is tilted to the right side. There was no focal arm or leg weakness. Plantars are flexor. Results Labs 08/19/23 06:40 08/21/23 06:08 Labs: BMP 08/21/23 06:08 Sodium 141 Potassium 3.8 Chloride 108 Carbon Dioxide 29 BUN 11 Creatinine 0.[address] revealed extensive bifrontal encephalomalacia and evidence of craniotomy. Microbiology Microbiology Results: Microbiology 08/18/23 19:48 Cerebrospinal Fluid Gram Stain - Final 08/18/23 19:48 Cerebrospinal Fluid CSF Examination - Final 08/18/23 19:48 Cerebrospinal Fluid Fluid Description - Final 08/18/23 19:48 Cerebrospinal Fluid CSF Culture - Preliminary Culture in progress. 08/18/23 20:24 Blood - Venous Blood Culture - Preliminary No growth after 48 hours. 08/18/23 20:01 Blood - Venous Blood Culture - Preliminary No growth after 48 hours. 08/18/23 Unknown Urine clean catch - Clean Catch Midstream Urine Culture - Final Escherichia coli Assessment and Plan (1) Seizure: Status: Acute 68 years old woman with history of malignant brain tumor status post multiple types of treatment resulting in extensive encephalomalacia and seizure disorder. Seizure control was never per fact but relatively better. She was admitted for infection and my recommendation is to continue her baseline dose of levetiracetam. Procedures Date of Service Date of Service: 08/21/23
[2023-08-21] MEDS: cefTRIAXone sodium 1 GM in 0.9 % Sodium Chloride 50 ML IV (18:05)
[2023-08-21] MEDS: Docusate Sodium 100 MG CAPSULE PO (20:13)
[2023-08-22 04:00] VITALS: BP 154/71; PULSE 78; RESP 20; TEMP 36.1; O2SAT 97
[2023-08-22 08:00] VITALS: BP 176/81; PULSE 71; RESP 20; TEMP 36.3; O2SAT 94
[2023-08-22] MEDS: 0.9 % Sodium Chloride Flush 3 ML SYRINGE IVFLUSH (09:32)
[2023-08-22 09:33] VITALS: BP 176/81
[2023-08-22] MEDS: amLODIPine Besylate 5 MG TABLET PO (09:33)
[2023-08-22] MEDS: Rivaroxaban 20 MG TABLET PO (09:33)
[2023-08-22 09:34] VITALS: BP 176/81
[2023-08-22] MEDS: Cholecalciferol (Vitamin D3) 25 MCG TABLET 50 MCG PO (09:34)
[2023-08-22] MEDS: Aspirin Enteric Coated 81 MG TABLET.DR PO (09:34)
[2023-08-22] MEDS: lisinopriL 20 MG TABLET PO (09:34)
[2023-08-22] MEDS: Atorvastatin Calcium 40 MG TABLET PO (09:34)
[2023-08-22] MEDS: levETIRAcetam Oral Soln 500 MG/5 ML 1000 MG PO (09:35)
[2023-08-22 12:00] VITALS: BP 124/61; PULSE 75; RESP 20; TEMP 36.3; O2SAT 98
--- NOTE | 2023-08-22 13:25 | MHC.CM.PN ---
PCP confirmed with Liliam from [facility], pts PCP is INFO ANALYST, Neto Aguirre.
--- NOTE | 2023-08-22 13:58 | MHC.SPEECHCO ---
Pt seen after lunch resting, per she completed 100% of her tray with no overt s/s of aspiration. She is resting on arrival and no further PO is requested per .
--- NOTE | 2023-08-22 14:13 | P.DS_ITS ---
DS: Providers Provider Date of Service: 08/22/23 Date of admission: 08/19/23 00:01 Primary care physician: Neto Aguirre CNP Consults: 08/19/23 01:02 Consult to Neurology Routine Consulting Provider: [facility] Reason for consultation: Seizures Has provider been notified: No DS: Diagnosis Discharge Diagnosis (1) Seizure: Status: Acute DS: Summary Hospital Course Hospital Course: History and physical as per admitting provider. Juani Ferro a 68 years old woman with past medical history significant for brain cancer status post chemotherapy and radiation, seizures, stroke, essential hypertension and DVT on Xarelto was brought to the emergency department after the patient started to experience seizures. According to patient's the patient has been having a dry cough for the last 5 days. He seems that she got from him as he was having the same symptoms. Fever she has not been noted. The patient has not been complaining of abdominal pain, nausea, vomiting, acute urinary changes or diarrhea. She was complaining of a mild headache that resolved with Motrin. The patient has not missed any dose of her medications including Keppra. Patient has no history of alcohol abuse, illicit drug or marijuana abuse. Patient received Versed by EMS. In the ED, she was found fever of 100.7, mild tachycardia and tachypnea. Oxygen saturation is normal room air. Blood workup was remarkable for slight leukocytosis of 10.9, there is Hemoglobin and platelets are normal. There are no electrolyte imbalances and there is no metabolic acidosis. LFTs are basically unremarkable. Urinalysis consistent with urinary tract infection. Patient underwent a lumbar puncture and CSF analysis was obtained. CSF appearance clear, WBC 2, RBC 1 a disease, neutrophils 8, lymphocytes 8, monocytes 2% elevated protein of 48.8. Urine drug screen is positive for benzodiazepines. Head CT and C-spine scans showed acute intracranial abnormalities, dislocation or fractures. ECG showed sinus tachycardia, heart rate 113 beats per minute with acute ischemic changes. ED tx: Ampicillin 2 g IV, Keppra 1 g IV, NS 1 L, Tylenol 1 g IV, ceftriaxone 1 g IV, dexamethasone 10 g IV, vancomycin 1750 mg IV. 68-year-old woman treated for acute metabolic encephalopathy secondary to UTI with severe sepsis. Urine culture was pansensitive to E coli and she was treated initially with IV Rocephin that was started on 08/17 and she completed a total of 5 days of treatment. Blood cultures remained negative. The encephalopathy was likely secondary to the infection, she did have an LP which was not indicative of meningitis. Her mental status has improved significantly since admission. She did have a bedside swallow initially with recommendation for advanced diet to ground mechanical with 1 on 1 feeds. She also had a breakthrough seizure also likely in the setting of urinary tract infection. She is on Keppra and has continue taking this during the admission. She had an episode of NSVT with 6 beat run, asymptomatic, lytes were repleted and she was monitored on telemetry with no further episodes. She also had acute hypokalemia that resolved with repletion, hydrochlorothiazide was stopped and changed for lisinopril. Patient was seen by Physical therapy with recommendation for short- term rehab but her stated that he wanted to take her home and did not want her to go to rehab. Patient seems to be close to baseline at this point he is out of bed with 1 assist and sitting in the chair. She will be discharged home with and visiting nurse as well as physical therapy. Hypertension. Continue amlodipine, lisinopril added History of DVT. Continue Xarelto Hyperlipidemia. Continue statin History of CVA. Continue aspirin, statin and Xarelto Time Attestation Discharge Coordination Time (in mins): 32 Quality: Safe Use of Opioids Does Pt have an Active Cancer Diagnosis on the Problem List?: No Quality: Stroke Does the patient have a stroke diagnosis?: No Physical Exam Vital Signs: Vital Signs: Last Vital Signs Temp 97.3 F 08/22/23 12:00 Pulse 75 08/22/23 12:00 Resp 20 08/22/23 12:00 BP 124/61 08/22/23 12:00 Pulse Ox 98 08/22/23 12:00 O2 Del Method Room Air 08/22/23 12:00 O2 Flow Rate 2 08/18/23 18:02 BMI result Body Mass Index 29.4 Appearing in no acute distress head is normocephalic atraumatic eyes pupils are PERRLA sclera is anicteric mouth throat mucous membranes are intact and moist neck torticollis no lymphadenopathy, no JVD noted lung sounds are clear to auscultation heart regular rate rhythm, clear S1, S2 positive bowel sounds, abdomen is soft, nontender neuro patient is alert x3, no focal deficits DS: Data Data Completed and Pending Completed studies during hospitalization [Text1]: Procedures Insertion of Endotracheal Airway into Trachea, Via Natural or Artificial Opening (12/20/21) Insertion of Infusion Device into Superior Vena Cava, Percutaneous Approach (12/20/21) Insertion of Monitoring Device into Lower Artery, Percutaneous Approach (12/20/21) Introduction of Vasopressor into Peripheral Vein, Percutaneous Approach (12/20/21) Monitoring of Arterial Pressure, Peripheral, Percutaneous Approach (12/20/21) Monitoring of Arterial Pulse, Peripheral, Percutaneous Approach (12/20/21) Respiratory Ventilation, Greater than 96 Consecutive Hours (12/20/21) Ultrasonography of Superior Vena Cava, Guidance (12/20/21) Labs on day of discharge: Preliminary micro results at discharge 08/18/23 19:48 CSF Culture - Preliminary Cerebrospinal Fluid No growth after 2 days 08/18/23 20:24 Blood Culture - Preliminary Blood - Venous No growth after 48 hours. 08/18/23 20:01 Blood Culture - Preliminary Blood - Venous No growth after 48 hours. Discharge Plan Discharge Anticipated Discharge Date/Time: 08/22/23 14:07 Patient Disposition: Home Health Service Discharge Diagnosis: UTI Sepsis Acute metabolic encephalopathy Breakthrough seizure NSVT Acute hypokalemia Referrals: Neto Aguirre CNP [Primary Care Provider] - 1 Week Discharge Medications: New lisinopril 20 mg Tablet 20 mg PO DAILY Qty: 90 0RF Protocol: Hold for SBP< HOLD for SBP < : 90 Continued (DME) miscellaneous medical supply Misc See Rx Instructions .ROUTE .MEDSUPPLY Qty: 240 6RF Rx Instructions: Disposable Diaper-PullUps. size large 8x daily As directed, 30 day supply atorvastatin 40 mg tablet 40 mg PO DAILY Qty: 90 1RF aspirin 81 mg tablet,delayed release (DR/EC) 81 mg PO DAILY Qty: 90 1RF amlodipine 5 mg tablet 5 mg PO DAILY 90 Days Qty: 90 1RF albuterol sulfate [Ventolin HFA] 90 mcg/actuation HFA aerosol inhaler 2 puff INHALATION Q4H PRN (Reason: SOB) Xarelto 20 mg tablet 20 mg PO DAILY Rx Instructions: must administer with evening meal multivitamin Tablet 1 tab PO DAILY levetiracetam 100 mg/mL solution 1,000 mg PO BID cholecalciferol (vitamin D3) 50 mcg (2,000 unit) tablet 50 mcg PO DAILY 90 Days Qty: 90 1RF docusate sodium 100 mg capsule 100 mg PO BEDTIME Qty: 90 3RF Discontinued hydrochlorothiazide 25 mg Tablet 25 mg PO DAILY Discharge Orders: Discharge Order (Routine); Ordered 08/22/23 Ordered By: Letha Olea Diet: Advance to usual diet Activity on Discharge: As tolerated Stand Alone Forms: Patient Portal Discharge page Print Language: Syriac Care Plan Goals: Home with physical therapy and visiting nurse services The hydralazine was stopped and replaced with lisinopril Health Concerns: UTI Sepsis Acute metabolic encephalopathy Breakthrough seizure NSVT Acute hypokalemia Plan of Treatment: Follow-up with primary care provider as needed Take all medications as prescribed Assessment: See discharge summary
[2023-08-22 15:54] LABS: Levetiracetam Keppra 34.1 mcg/mL (6.0-46.0)
--- NOTE | 2023-08-22 15:55 | W.MHC.F2F ---
Service Date Service Date: 08/22/23 Encounter Date of encounter: 08/22/23 Reasons for Services Signs and symptoms assessed: Toxic metabolic encephalopathy UTI Sepsis Reason for custodial: CV/CP assess and/or care Reason for physical therapy: home safety and mobility Homebound: Leaving the home is medically contraindicated at this time without the asist of a device and/or another person due th the listed conditions above and below. Reason homebound: unsteady gait / fall risk, poor balance / fall risk and weakness related to hospital stay Certification: Based on the above findings, I certify that this patient is confined to the home and needs intermittent custodial care, physical therapy and/or speech therapy, or continues to need occupational therapy. The patient is under my care, and I have initiated the establishment of the plan of care. The patient will be followed by a physician who will periodically review the plan of care. Time Spent With Patient Time: Total time managing care of this patient today ____ minutes.
--- NOTE | 2023-08-22 16:23 | MHC.CM.PN ---
Second IMM 08/21. Pt is medically cleared for discharge home with new [facility] services (per daughters request in agency), pts transport her home.
== END 2023-08-22 15:06 | disposition home health service (06) | DRG 871 ==
LOC: HO.ED 21:20 → HO.EDOVER 08-19 00:08 → HO.IMC 08-19 00:39
PROVIDERS: Physician Assistant; Admitting Provider Internal Medicine; Emergency Provider Emergency Medicine; PCP Nurse Practitioner Family; Visit Provider Nurse Practitioner Acute Care
DX: A41.9 Sepsis, unspecified organism (principal); G93.41 Metabolic encephalopathy; N39.0 Urinary tract infection, site not specified; I47.20 Ventricular tachycardia, unspecified; G40.909 Epilepsy, unspecified, not intractable, without status epilepticus; E87.6 Hypokalemia; B96.20 Unspecified Escherichia coli [E. coli] as the cause of diseases classified elsewhere; R65.20 Severe sepsis without septic shock; I10 Essential (primary) hypertension; E78.5 Hyperlipidemia, unspecified; Z20.822 Contact with and (suspected) exposure to COVID-19; Z86.718 Personal history of other venous thrombosis and embolism; Z86.73 Personal history of transient ischemic attack (TIA), and cerebral infarction without residual deficits; Z85.841 Personal history of malignant neoplasm of brain; Z79.01 Long term (current) use of anticoagulants; Z79.82 Long term (current) use of aspirin; Z79.899 Other long term (current) drug therapy
CPT/HCPCS: 0241U; 36415; 70450; 71045; 72125; 80048; 80053; 80076; 80143; 80177; 80179; 80307; 81001; 81003; 82945; 83605; 83690; 83735; 84157; 84484; 85025; 87015; 87040; 87070; 87086; 87088; 87186; 87205; 89051; 92610; 93005; 97162; 99285; J0131; J0290; J0696; J1100; J1953; J3370; J3480; J7120

== ENCOUNTER → 2023-08-18 12:19 | Outpatient (BNV) | payer OTHER, SELFPAY | PROVIDERS: Emergency Provider Emergency Medicine; Visit Provider Internal Medicine Cardiovascular Disease | DX: R00.0 Tachycardia, unspecified (principal) | CPT/HCPCS: 93010 ==

== ENCOUNTER → 2023-08-19 00:01 | Outpatient (BNV) | payer OTHER, SELFPAY | PROVIDERS: Admitting Provider Internal Medicine; Emergency Provider Emergency Medicine; Visit Provider Psychiatry & Neurology Neurology | DX: G93.89 Other specified disorders of brain (principal); Z85.841 Personal history of malignant neoplasm of brain | CPT/HCPCS: 99222 ==

== ENCOUNTER → 2023-08-19 00:01 | Outpatient (BNV) | payer OTHER, SELFPAY | PROVIDERS: Admitting Provider Internal Medicine; Emergency Provider Emergency Medicine; Visit Provider Internal Medicine | DX: R56.9 Unspecified convulsions (principal) | CPT/HCPCS: 99223; 99232; 99239; 99429; G0180 ==

== ENCOUNTER 2023-09-02 10:00 | Emergency (ER) | payer OTHER, SELFPAY ==
--- NOTE | ~2023-09-02 | CT_ITS ---
EXAMINATION: CT HEAD WITHOUT CONTRAST CLINICAL INFORMATION: Altered mental status. COMPARISON: CT head from 08/10/2023. TECHNIQUE: Contiguous axial imaging was performed from the skull base to vertex without intravenous administration of contrast. This CT examination was performed using dose optimization techniques as appropriate, variously including the following: *Automated exposure control. *Adjustment of mA and/or kV according to patient size (this includes techniques or standardized protocols for targeted exams where dose is matched to indication/reason for exam; i.e. extremities or head). *Use of iterative reconstruction technique. DLP: 1111 mGy-cm FINDINGS: Prior right frontal craniotomy. There is chronic encephalomalacia within the anterior frontal lobes bilaterally with associated volume loss. No additional loss of corey-white matter differentiation. No evidence of acute intracranial hemorrhage. Scattered and partially confluent hypoattenuation in the periventricular and deep white matter are consistent with moderate microangiopathy. Ex vacuo dilatation of the frontal horns of the lateral ventricles. Otherwise, proportional prominence of the ventricles and sulcal spaces without evidence of obstructive hydrocephalus. No abnormal mass effect or midline shift. No extra-axial fluid collections. No acute soft tissue or osseous abnormalities. Mild mucosal thickening of the paranasal sinuses. The mastoid air cells and middle ear cavities are clear. CT/CT head/brain wo IV con IMPRESSION: 1. No evidence of acute intracranial hemorrhage or edematous territorial infarction. 2. Chronic encephalomalacia of the anterior frontal lobes bilaterally. Moderate underlying microangiopathy and generalized cerebral volume loss.
--- NOTE | ~2023-09-02 | XR_ITS ---
EXAMINATION: XR CHEST CLINICAL INFORMATION: Cough COMPARISON: Prior chest November 2022 TECHNIQUE: Frontal view of the chest was obtained. FINDINGS: No significant abnormality is noted involving the heart, lungs, mediastinum, bony thorax or soft tissues. XR/XR chest 1V IMPRESSION: Unremarkable examination.
[2023-09-02 10:20] VITALS: BP 148/74; BP 176/84; PULSE 74; PULSE 76; RESP 16; TEMP 36.8; O2SAT 99; BMI 26.5
[2023-09-02 10:23] VITALS: RESP 16; O2SAT 99
[2023-09-02 11:10] LABS: Appearance Urine Clear; Color Urine Yellow; Glucose Urine UA Negative (Negative); Leukocyte Esterase Urine Negative (Negative); Nitrite Urine Negative (Negative); Specific Gravity - Urine 1.015 (1.005-1.025); Urine Blood Negative (Negative); Urine Ketones Negative (Negative); Urine Protein Negative (Neg-Trace)
[2023-09-02 11:29] LABS: MANUAL DIFF FLAG NO
[2023-09-02 11:37] LABS: Basophils Percent Auto 0.6 % (0-2); Eosinophils Absolute Auto 0.2 X10*3/uL (0.0-0.4); Eosinophils Percent Auto 2.9 % (0-4); Hematocrit 41.9 % (37.0-47.0); Hemoglobin 13.1 g/dl (12.0-16.0); Imm Gran Abs Auto 0.02 X10*3/uL (0.00-0.03); Imm Gran Pct Auto 0.3 % (0.0-0.4); Lymphocytes Absolute Auto 1.5 X10*3/uL (1.2-4.9); Lymphocytes Percent Auto 20.6 % (20-40); Mean Corpuscular HGB Conc 31.3 g/dl (31.0-35.0); Mean Corpuscular Hemoglobin 27.5 pg (27.0-33.0); Mean Platelet Volume 10.1 fL (9.4-12.3); Monocytes Absolute Auto 0.5 X10*3/uL (0.1-1.2); Monocytes Percent Auto 7.2 % (2-11); Neutrophils Absolute Auto 4.9 x10*3/uL (2.0-8.3); Neutrophils Percent Auto 68.4 % (45-73); Platelet Count 247 X10*3/uL (160-400); Red Blood Count 4.76 X10*6/uL (4.20-5.50); Red Cell Distribution Width 14.1 % (11.0-16.0); White Blood Count 7.2 X10*3/uL (4.8-10.8)
[2023-09-02 11:49] LABS: Alanine Aminotransferase 22 U/L (0-31); Albumin Level 3.5 g/dL (3.5-5.0); Alkaline Phosphatase 104 U/L (39-117); Anion Gap 9 (12-20); Aspartate Amino Transferase 16 U/L (5-31); Bilirubin Total 0.3 mg/dL (0.0-1.0); Blood Urea Nitrogen 8 mg/dL (9-16); Calcium 9.3 mg/dL (8.4-10.2); Carbon Dioxide 33 mmol/L (22-29); Chloride 108 mmol/L (96-108); Estimated Glomerular Filt Rate > 60; Glucose Random 97 mg/dL (60-115); Magnesium 2.3 mg/dL (1.6-2.6); Potassium 4.5 mmol/L (3.3-5.1); Sodium 145 mmol/L (135-145); Total Protein 6.6 g/dL (6.5-8.0)
[2023-09-02 12:00] VITALS: BP 146/88; PULSE 63; RESP 18; TEMP 36.1; O2SAT 99
--- NOTE | 2023-09-02 12:58 | ED_ITS ---
HPI - General Adult General Chief complaint: General Medical Stated complaint: WEAKNESS,LOW GRADE FEVER SINCE LAST NIGHT PER EMS Time Seen by Provider: 09/02/23 10:39 Source: patient Mode of arrival: ambulatory Limitations: no limitations History of Present Illness ED Provider: Azam MOTTA HPI narrative: 68 yo female with history of belle cancer, torticollis, frequent UTI, hypertension, hyperlipidemia, DVT, TERI, TIA presenting with fatigue, weakness, and altered mental status per family. Patient was seen here for UTI and CVA 2 weeks ago treated with IV antibiotics. Currently, patient is tired, sleeping more than usual and seems ofF according to daughter at bedside. states she has been coughing X 2 nights. Patient awake, alert, orient Patient denies any pain currently, Related Data Home Medications ?Medication ?Instructions ?Recorded ?Confirmed multivitamin 1 tab PO DAILY 03/30/22 08/18/23 levetiracetam 100 mg/mL oral 1,000 mg PO BID 07/10/23 08/18/23 solution albuterol sulfate 90 mcg/actuation 2 puff inhalation Q4H PRN SOB 08/18/23 08/18/23 aerosol inhaler (Ventolin HFA) Previous Rx's ?Medication ?Instructions ?Recorded miscellaneous medical supply #240 ea 10/05/22 docusate sodium 100 mg capsule 100 mg PO BEDTIME #90 caps 03/27/23 atorvastatin 40 mg tablet 40 mg PO DAILY #90 tabs 04/18/23 aspirin 81 mg tablet,delayed 81 mg PO DAILY #90 tabs 04/20/23 release amlodipine 5 mg tablet 5 mg PO DAILY 90 days #90 tabs 05/29/23 cholecalciferol (vitamin D3) 50 50 mcg PO DAILY 90 days #90 tabs 07/10/23 mcg (2,000 unit) tablet lisinopril 20 mg tablet 20 mg PO DAILY #90 tabs 08/22/23 rivaroxaban 20 mg tablet (Xarelto) 20 mg PO DAILY 20 days #20 tabs 08/31/23 albuterol sulfate 90 mcg/actuation 2 inh inhalation Q4-6H PRN 09/02/23 breath activated powder inhaler shortness of breath or wheezing #1 ea benzonatate 100 mg capsule 100 mg PO BID PRN cough #20 caps 09/02/23 Allergies Allergy/AdvReac Type Severity Reaction Status Date / Time apple [Apple] Allergy Severe THROAT Verified 09/02/23 10:22 SWELLING pollen extracts [POLLEN] Allergy Intermediate SNEEZING Verified 09/02/23 10:22 COUGHING ALOT kiwi AdvReac Intermediate VOMITING Verified 09/02/23 10:22 [Kiwi (Actinidia Chinensis)] avocado [Avocado] AdvReac Mild VOMITING Verified 09/02/23 10:22 Review of Systems 2 Review of Systems: Yes all other systems are reviewed and are negative [facility] Past Medical History Attestation statement: The following information was validated with the patient. Source: old records reviewed and nursing notes reviewed Medical History Seizure Brain cancer Metabolic alkalosis with respiratory acidosis Encounter for palliative care Sebaceous cyst of axilla Essential hypertension PVC (premature ventricular contraction) PAC (premature atrial contraction) Torticollis, acquired UTI (urinary tract infection), bacterial Bladder incontinence Unspecified urinary incontinence Abscess Symptomatic PVCs Physical exam, annual Stroke Insomnia Closed fracture of fibula with routine healing Fracture of distal end of fibula Right ankle pain HTN (hypertension) DVT (deep venous thrombosis) Surgical History Hx of section Hx of tubal ligation H/O craniotomy Family History Family History Mother Diabetes Father Heart disease Family/Other Breast cancer Brain cancer Diabetes Social History Social History Household Members: Spouse Housing: Apartment Housing Other:: Lives with Spouse Do you presently have visiting nurse or other home services: Yes Unable to assess alcohol history related to: Unable to respond Alcohol intake: never Patient Tobacco Use Status: Never used Tobacco Smoked in Last 30 Days: No e-Cigarette/Vaping Use: Never Used Second Hand Smoke Exposure: No Use of substances other than those prescribed or required for medical reasons: No Advance Directives: Yes Advance Directives on File: Yes Advance Directives Date on File: 02/12/20 service: No Current occupational status: retired and disabled Cognitive needs: Yes Hearing needs: No Vision needs: Yes Physical Exam ED Vital Signs: Vital Signs - 24 hr 09/02/23 10:20 09/02/23 10:23 09/02/23 12:00 Temperature 98.3 F 97 F Pulse Rate 74 63 Respiratory Rate 16 16 18 Blood Pressure 148/74 H 146/88 H Pulse Oximetry 99 99 99 Oxygen Delivery Method Room Air Room Air Room Air 09/02/23 14:00 Temperature 97.8 F Pulse Rate 53 Respiratory Rate 16 Blood Pressure 180/79 H Pulse Oximetry 99 Oxygen Delivery Method Room Air BMI result Body Mass Index 26.5 vss Appearance: Alert.? Oriented X3.? No acute distress.? Head: Normocephalic, atraumatic, no step-offs or deformities Eyes: Pupils equal, round and reactive to light.? ENT: Pharynx normal.? Neck: Normal inspection.? Neck sup+ right sided tople.? CVS: Normal heart rate and rhythm.? Pulses normal.? Respiratory: No respiratory distress.? Breath sounds normal.? Abdomen: Soft and nontender.? Skin: Skin warm and dry.? Normal skin color.? Normal skin turgor.? Extremities: No lower extremity edema.? No calf ttp. 5/5 strength to bilateral upper and lower extremities Neuro: Oriented X 3.? No motor deficit.? No sensory deficit. CN 2-12 intact Course Reevaluation(s) Reevaluation #1: CBC unremarkable. Chemistry no acute findings requiring intervention. UA clean. Flu, COVID, RSV negative. Chest x-ray pending. CT head with no acute findings. As long as EKG is normal patient to be discharged with albuterol and benzonatate Educated patient on diagnosis and treatment plan, answered all question, patient verbalizes understanding. At this time patient will be discharged home, advised to return with new or worsening symptoms. Educated on worrisome signs and symptoms and when to return. At this time I feel comfortable discharge home. Time: 16:13 Medical Decision Making Medical Decision Making MDM Narrative: 68-year-old female presents with weakness, cough for the past few days. Here with family who is concerned for worsening weakness. Right physical exam global weakness. Regular rate and rhythm. Lungs clear. Abdomen soft nontender nondistended. Intermittent dry cough noted. Right sided torticollis. History and physical exam concerning for viral illness flu versus COVID versus RSV. Unlikely PE, pneumonia, ACS. Unlikely stroke, posterior stroke. Unlikely UTI however will rule out. Plan labs, imaging, urine. Differential Diagnosis Differential Diagnoses: The differential diagnosis associated with the presentation includes History and physical exam concerning for viral illness flu versus COVID versus RSV. Unlikely PE, pneumonia, ACS. Unlikely stroke, posterior stroke. Unlikely UTI however will rule out. Admission/Observation Consideration of admission/observation: Escalation of care including admission/observation considered Possible Lab Data 09/02/23 11:21 09/02/23 11:21 Labs: Lab Results 09/02/23 09/02/23 09/02/23 Range/Units 11:03 11:21 13:47 WBC 7.2 (4.8-10.8) X10*3/uL RBC 4.76 (4.20-5.50) X10*6/uL Hgb 13.1 (12.0-16.0) g/dl Hct 41.9 (37.0-47.0) % MCV 88.0 (80.0-98.0) fL MCH 27.5 (27.0-33.0) pg MCHC 31.3 (31.0-35.0) g/dl RDW 14.1 (11.0-16.0) % Plt Count 247 (160-400) X10*3/uL MPV 10.1 (9.4-12.3) fL Immature Gran % (Auto) 0.3 (0.0-0.4) % Neut % (Auto) 68.4 (45-73) % Lymph % (Auto) 20.6 (20-40) % [place] % (Auto) 7.2 (2-11) % Eos % (Auto) 2.9 (0-4) % Baso % (Auto) 0.6 (0-2) % Lymph # (Auto) 1.5 (1.2-4.9) X10*3/uL [place] # (Auto) 0.5 (0.1-1.2) X10*3/uL Eos # (Auto) 0.2 (0.0-0.4) X10*3/uL Baso # (Auto) 0.0 (0.0-0.2) X10*3/uL Abs Immat Gran (auto) 0.02 (0.00-0.03) X10*3/uL Absolute Neuts (auto) 4.9 (2.0-8.3) x10*3/uL Absolute Nucleated RBC 0.000 (0.0-0.012) X10*3/uL Nucleated RBC % (auto) 0.0 (0.0-0.2) /100WBC Sodium 145 (135-145) mmol/L Potassium 4.5 (3.3-5.1) mmol/L Chloride 108 (96-108) mmol/L Carbon Dioxide 33 H (22-29) mmol/L Anion Gap 9 L (12-20) BUN 8 L (9-16) mg/dL Creatinine 0.66 (0.5-1.4) mg/dL Estim Creat Clear Calc 83.0 Estimated GFR > 60 Random Glucose 97 (60-115) mg/dL Calcium 9.3 (8.4-10.2) mg/dL Magnesium 2.3 (1.6-2.6) mg/dL Total Bilirubin 0.3 (0.0-1.0) mg/dL AST 16 (5-31) U/L ALT 22 (0-31) U/L Alkaline Phosphatase 104 (39-117) U/L Total Protein 6.6 (6.5-8.0) g/dL Albumin 3.5 (3.5-5.0) g/dL Urine Color Yellow Urine Appearance Clear Urine pH 8.0 (5.0-9.0) Ur Specific [place] 1.015 (1.005-1.025) Urine Protein Negative (Neg-Trace) mg/dL Urine Glucose (UA) Negative (Negative) mg/dL Urine Ketones Negative (Negative) mg/dL Urine Blood Negative (Negative) Urine Nitrite Negative (Negative) Ur Leukocyte Esterase Negative (Negative) Influenza Type A (PCR) NEGATIVE (Negative) Influenza Type B (PCR) NEGATIVE (Negative) RSV RNA Qual (PCR) NEGATIVE (Negative) SARS-CoV-2 RNA (RT-PCR) NEGATIVE (Negative) Critical Care Time Critical Care Time Critical Care Time: No Discharge Plan Discharge Clinical Impression: Upper respiratory infection Patient Disposition: Home, Self-Care Instructions: Upper Respiratory Infection (ED) Additional Instructions: Take your medications as prescribed. If you were prescribed antibiotics today, it is important that you take your medication to their entirety, do not skip any doses, do not finish them early. Follow-up with your primary care provider this week. Return to the emergency department with new or worsening symptoms. Such as fevers, chills, chest pain, shortness of breath, nausea, vomiting, dizziness, headache, vision changes, lethargy In case of emergency call 911 Prescriptions: New albuterol sulfate 90 mcg/actuation aerosol powdr breath activated 2 inh inhalation Q4-6H PRN (Reason: shortness of breath or wheezing) Qty: 1 0RF benzonatate 100 mg capsule 100 mg PO BID PRN (Reason: cough) Qty: 20 0RF No Action (DME) miscellaneous medical supply Misc See Rx Instructions .ROUTE .MEDSUPPLY Qty: 240 6RF Rx Instructions: Disposable Diaper-PullUps. size large 8x daily As directed, 30 day supply atorvastatin 40 mg tablet 40 mg PO DAILY Qty: 90 1RF aspirin 81 mg tablet,delayed release (DR/EC) 81 mg PO DAILY Qty: 90 1RF amlodipine 5 mg tablet 5 mg PO DAILY 90 Days Qty: 90 1RF Xarelto 20 mg tablet 20 mg PO DAILY 20 Days Qty: 20 3RF Rx Instructions: must administer with evening meal albuterol sulfate [Ventolin HFA] 90 mcg/actuation HFA aerosol inhaler 2 puff INHALATION Q4H PRN (Reason: SOB) lisinopril 20 mg Tablet 20 mg PO DAILY Qty: 90 0RF Protocol: Hold for SBP< HOLD for SBP < : 90 multivitamin Tablet 1 tab PO DAILY levetiracetam 100 mg/mL solution 1,000 mg PO BID cholecalciferol (vitamin D3) 50 mcg (2,000 unit) tablet 50 mcg PO DAILY 90 Days Qty: 90 1RF docusate sodium 100 mg capsule 100 mg PO BEDTIME Qty: 90 3RF Referrals: Lida Boo MD [Emergency Provider] - 2 days Stand Alone Forms: Work/School Release Print Language: [place]
[2023-09-02 14:00] VITALS: BP 180/79; PULSE 53; RESP 16; TEMP 36.6; O2SAT 99
[2023-09-02 14:29] LABS: Influenza A PCR NEGATIVE (Negative); Influenza B PCR NEGATIVE (Negative); Resp Syncy Virus RNA Qual PCR NEGATIVE (Negative); SARS COV2 PCR INHOUSE NEGATIVE (Negative)
--- NOTE | 2023-09-02 15:47 | ECG_ITS ---
Test Reason : sob Blood Pressure : / mmHG Vent. Rate : 082 BPM Atrial Rate : 082 BPM P-R Int : 174 ms QRS Dur : 080 ms QT Int : 348 ms P-R-T Axes : 069 039 057 degrees QTc Int : 406 ms Normal sinus rhythm with sinus arrhythmia Normal ECG When compared with ECG of 18-AUG-2023 12:28, Premature ventricular complexes are no longer Present Referred By: Tahir Turcios Electronically Signed By:Juan Carlos Ramey
[2023-09-02 17:32] VITALS: BP 180/87; PULSE 87; RESP 16; TEMP 36.6; O2SAT 95
== END 2023-09-02 17:33 | disposition home or self-care (01) ==
PROVIDERS: Physician Assistant; Emergency Provider Emergency Medicine Emergency Medical Services; PCP Nurse Practitioner Family
DX: J06.9 Acute upper respiratory infection, unspecified (principal); R05.9 Cough, unspecified; R41.82 Altered mental status, unspecified; R53.83 Other fatigue; I10 Essential (primary) hypertension; E78.5 Hyperlipidemia, unspecified; C71.9 Malignant neoplasm of brain, unspecified; Z86.718 Personal history of other venous thrombosis and embolism; Z03.818 Encounter for observation for suspected exposure to other biological agents ruled out
CPT/HCPCS: 0241U; 36415; 70450; 71045; 80053; 81003; 83735; 85025; 93005; 99284

== ENCOUNTER → 2023-09-02 15:47 | Outpatient (BNV) | payer OTHER, SELFPAY | PROVIDERS: Emergency Provider Emergency Medicine Emergency Medical Services; PCP Nurse Practitioner Family; Visit Provider Internal Medicine Cardiovascular Disease | DX: R06.02 Shortness of breath (principal) | CPT/HCPCS: 93010 ==

== ENCOUNTER 2023-09-04 14:09 | Outpatient (AMB) | payer OTHER, SELFPAY ==
--- NOTE | 2023-09-04 14:10 | MHC.OFFVIS ---
Vital Signs 09/04/23 14:24 BP 138/72 Blood Pressure Location Lt brachial Position Sitting Pulse 70 Pulse Source Pulse Oximeter Pulse Oximetry (%) 100 Oxygen Delivery Method Room Air Intake Visit Reasons: 4 month follow up cologuard/Constipation Intake Note: Juani presents in office today for a scheduled 4 mos FUV. CC; Pt is here to discuss a possible cologuard test as well as discuss their recent constipation. Family reports that the pt has been dealing with these sx for the past year. They were worse when she was bed bound, however; they have seen some improvement since she has been transferable to a wheelchair. Pt does not have any additional GI sx. Family only reports the pt as having frequent UTIs. Pt was seen recently in the ED for a URI. Pt has been appearing lethargic and weak over the course of the last day or so since coming home from the ED. Family says that this is not typical for her. Baking Assistant Required: No Accompanied by: Family/Other Allergies apple [Apple] Allergy (Severe, Verified 09/04/23 14:15) THROAT SWELLING pollen extracts [POLLEN] Allergy (Intermediate, Verified 09/04/23 14:15) SNEEZING COUGHING ALOT kiwi [Kiwi (Actinidia Chinensis)] Adverse Reaction (Intermediate, Verified 09/04/23 14:15) VOMITING avocado [Avocado] Adverse Reaction (Mild, Verified 09/04/23 14:15) VOMITING HPI HPI 4 month follow up cologuard/Constipation: Details: LAST VISIT: Colon cancer screening Constipation Plan Per patient request and her family request we will send Cologuard. Multiple comorbidities like seizure history, sleep apnea with history of hypoxia. Patient is also unable to lay on the left side due to severe torticollis. Encouraged to take MiraLax daily. Patient was encouraged to increase fluid intake. I will see her in 4 months, sooner on as needed basis. Patient, her daughter and her are all agreeable to plan of care and verbalizes understanding of instructions. They were given the opportunity to ask questions and all questions answered. ? Thank you for allowing me to participate in her care Medications New docusate sodium 100 mg PO BEDTIME 90 caps 3RF K59.00 TODAY'S VISIT Patient is here today for follow-up. She is accompanied by her daughter. CUSTOMER ASSISTANCE REPRESENTATIVE is in the waiting room. Patient's daughter is concern as she never received Cologuard. Patient is moving her bowels better now that she is taking Colace. Patient denies any abdominal pain or discomfort. Denies any melena, hematochezia. Denies any dyspepsia, dysphagia or odynophagia. Patient's daughter reports that she has been having more frequent seizures and was seen in the ER over the past weekend for upper respiratory infection and high blood pressure, feeling tired. End of July patient was admitted with urinary tract infection upper respiratory infection and CVA like symptoms. Patient denies any GI concerning symptoms today except for ordering another Cologuard test as patient's daughter believe that the other test was never sent them. [facility] Medical History Seizure Brain cancer Metabolic alkalosis with respiratory acidosis Encounter for palliative care Sebaceous cyst of axilla Essential hypertension PVC (premature ventricular contraction) PAC (premature atrial contraction) Torticollis, acquired UTI (urinary tract infection), bacterial Bladder incontinence Unspecified urinary incontinence Abscess Symptomatic PVCs Physical exam, annual Stroke Insomnia Closed fracture of fibula with routine healing Fracture of distal end of fibula Right ankle pain HTN (hypertension) DVT (deep venous thrombosis) Surgical History Hx of section Hx of tubal ligation H/O craniotomy Family History Mother Diabetes Father Heart disease Family/Other Breast cancer Brain cancer Diabetes Social History Household Members: Spouse Housing: Apartment Housing Other:: Lives with Spouse Do you presently have visiting nurse or other home services: Yes Unable to assess alcohol history related to: Unable to respond Alcohol intake: never Patient Tobacco Use Status: Never used Tobacco e-Cigarette/Vaping Use: Never Used Second Hand Smoke Exposure: No Advance Directives Date on File: 02/12/20 service: No Current occupational status: retired and disabled Cognitive needs: Yes Hearing needs: No Vision needs: Yes Female Reproductive History Menstrual Age of Menarche: 9 Review of Systems Const Denies weight gain and Denies weight loss ENT Reports no additional complaints, Denies dysphagia and Denies odynophagia Card Reports no additional complaints Resp Reports no additional complaints GI Denies abdominal pain, Denies belching, Denies melena, Denies bloating, Denies hematochezia, Reports constipation, Denies dysphagia, Denies excessive flatus, Denies dyspepsia, Denies heartburn, Denies diarrhea, Denies loose stools, Denies nausea, Denies odynophagia and Denies vomiting Reports no additional complaints Musc Reports no additional complaints Neuro Reports no additional complaints Psych Reports no additional complaints Endo Reports no additional complaints Physical Exam Vital Signs: Last Vital Signs Pulse 70 09/04/23 14:24 BP 138/72 09/04/23 14:24 Pulse Ox 100 09/04/23 14:24 Oxygen Delivery Method Room Air 09/04/23 14:24 Const Other: Patient is in a wheelchair R sided torticollis General: no acute distress Orientation/consciousness: patient oriented x3 Resp Effort & Inspection: normal respiratory effort, able to speak in complete sentences, no tracheal deviation and symmetric chest movement Auscultation: clear to auscultation bilaterally Cardio Rate: regular rate GI Inspection: Yes normal to inspection and No distended Palpation (GI): Soft to palpation, not firm, nontender and No hepatosplenomegaly present Auscultation: normal bowel sounds General: Yes no CVA tenderness Back/Spine/Pelvis Back: no CVA tenderness Skin General skin exam: elasticity normal, turgor normal and dry skin Neuro General: patient oriented x3 Psych Appearance: grossly normal Mental Status: mental status grossly normal Assessment & Plan Assessment & Plan (1) Colon cancer screening: Code(s): Z12.11 - Encounter for screening for malignant neoplasm of colon Category: Medical (2) Constipation: Code(s): K59.00 - Constipation, unspecified Qualifiers: Constipation type: slow transit constipation Qualified Code(s): K59.01 - Slow transit constipation Plan Patient will continue Colace. Increase fluid intake. Please send Cologuard to patient. Please call and make sure that this will be sent with instructions. Patient's daughter is to check with the office in 1-2 weeks if she will not receive the package. I will follow-up with patient in 3 months, sooner on as needed basis. Both patient and her daughter are agreeable to plan of care and verbalizes understanding of instructions. They were given the opportunity to ask questions and all questions answered. Thank you for allowing me to participate in her care Medications: Refilled docusate sodium 100 mg PO BEDTIME 90 caps 3RF K59.00 - Constipation, unspecified Coding Level of Care Code Est Pt Level 3 (99319) Diagnoses Colon cancer screening Z12.11 Slow transit constipation K59.01 Constipation type: slow transit constipation Time Spent (min) 25 Comment 15 minutes spent with patient and additional 10 minutes spent reviewing her records
[2023-09-04 14:24] VITALS: BP 138/72; PULSE 70; O2SAT 100
== END 2023-09-04 15:07 | disposition home or self-care (01) ==
PROVIDERS: PCP Nurse Practitioner Family; Visit Provider Nurse Practitioner Family
DX: K59.01 Slow transit constipation (principal); Z12.11 Encounter for screening for malignant neoplasm of colon
CPT/HCPCS: 99213

== ENCOUNTER → 2023-09-04 14:09 | Outpatient (BNVA) | payer OTHER, SELFPAY | PROVIDERS: PCP Nurse Practitioner Family; Visit Provider Nurse Practitioner Family | DX: Z12.11 Encounter for screening for malignant neoplasm of colon (principal); K59.01 Slow transit constipation | CPT/HCPCS: 99212 ==

== ENCOUNTER 2023-09-05 15:05 | Outpatient (AMB) | payer OTHER, SELFPAY ==
--- NOTE | 2023-09-05 15:11 | A.OFFPC_ITS ---
Vital Signs 09/05/23 15:25 Height 5 ft 6 in Weight 156 lb 2 oz BMI 25.2 BP 137/67 Blood Pressure Location Rt brachial Position Sitting Respiration 16 Pulse 72 Pulse Source Pulse Oximeter Temp 97.5 F Temp Source Temporal Artery Scan Pulse Oximetry (%) 99 Oxygen Delivery Method Room Air Intake Visit Reasons: est dfu from hospital Intake Note: patient here for follow up from [place] [facility].c/o pain in both legs she would like to see a specialist for it. 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 Accompanied by: Daughter Is last menstrual period known: No Post menopausal: No Patient : No Allergies apple [Apple] Allergy (Severe, Verified 09/05/23 15:32) THROAT SWELLING pollen extracts [POLLEN] Allergy (Intermediate, Verified 09/05/23 15:32) SNEEZING COUGHING ALOT kiwi [Kiwi (Actinidia Chinensis)] Adverse Reaction (Intermediate, Verified 09/05/23 15:32) VOMITING avocado [Avocado] Adverse Reaction (Mild, Verified 09/05/23 15:32) VOMITING Medication List - Last Reconciled 09/05/23 by Neto Aguirre CNP albuterol sulfate 90 mcg/actuation (Ventolin HFA) 2 puffs inhalation Q4H PRN albuterol sulfate 90 mcg/actuation 2 inhalations inhalation Q4-6H PRN amlodipine 5 mg PO DAILY 90 days aspirin 81 mg PO DAILY atorvastatin 40 mg PO DAILY benzonatate 100 mg PO BID PRN cholecalciferol (vitamin D3) 50 mcg PO DAILY 90 days docusate sodium 100 mg PO BEDTIME levetiracetam 1,000 mg PO BID lisinopril 20 mg See Protocol PO DAILY miscellaneous medical supply Disposable Diaper-PullUps. size large 8x daily As directed, 30 day supply multivitamin 1 tab PO DAILY rivaroxaban (Xarelto) 20 mg PO DAILY 20 days Tobacco use date assessed: 09/05/23 Fall risk assessment: 2 + Falls in past year Last assessed Fall Risk: 09/05/23 Dental Screening Dental Screen Date: 09/05/23 Did you have a dental visit in the last 12 months?: Yes Did you have a dental problem in the last 6 months where you did not have access to dental care?: No Was dental information given to patient?: Patient has dentist (she needs a specialist for dental that has special machines.) HPI HPI Comments History of Present Illness Details 68-year-old female accompanied by her aparna tejeda, presents for hospital discharge follow-up Between 08/18/2023 and 08/22/2023, she was admitted a [facility] and treated for acute metabolic encephalopathy secondary to UTI with severe sepsis. She was discharged home with VNA services and physical therapy On 09/02/2023, she [place] [facility] with complaints of a cough, low-grade fever, and weakness. She was treated for URI and sent home on albuterol inhaler and benzonatate. She notes that those symptoms has resolved She reports intermittent pinching/tingling sensation to both legs (from her thighs down to her lower leg), left lower extremity symptoms are more frequent than right. Her symptoms have been ongoing after she was recently discharged from the ED. She denies numbness or loss of sensation According to her daughter, the patient has been sluggish since she was discharged from the ED. Her gait is slow but steady with the walker [facility] Medical History Seizure Brain cancer Metabolic alkalosis with respiratory acidosis Encounter for palliative care Sebaceous cyst of axilla Essential hypertension PVC (premature ventricular contraction) PAC (premature atrial contraction) Torticollis, acquired UTI (urinary tract infection), bacterial Bladder incontinence Unspecified urinary incontinence Abscess Symptomatic PVCs Physical exam, annual Stroke Insomnia Closed fracture of fibula with routine healing Fracture of distal end of fibula Right ankle pain HTN (hypertension) DVT (deep venous thrombosis) Surgical History Hx of section Hx of tubal ligation H/O craniotomy Family History Mother Diabetes Father Heart disease Family/Other Breast cancer Brain cancer Diabetes Social History Household Members: Spouse Housing: Apartment Housing Other:: Lives with Spouse Do you presently have visiting nurse or other home services: Yes Unable to assess alcohol history related to: Unable to respond Alcohol intake: never Patient Tobacco Use Status: Never used Tobacco e-Cigarette/Vaping Use: Never Used Second Hand Smoke Exposure: No Advance Directives Date on File: 02/12/20 service: No Current occupational status: retired and disabled Cognitive needs: Yes Hearing needs: No Vision needs: Yes Female Reproductive History Menstrual Age of Menarche: 9 Questionnaire Thrive Questionnaire Date Thrive assessed: 08/19/23 MADAY-7 AMB Questionnaire MADAY-7 Date MADAY - 7 assessed: 02/28/23 Source: Developed by Drs. Horace Pineda, Daya Durbin, Romero Cat and colleagues, with an educational loren from [employer]. Review of Systems Const Details: Const Denies chills, Denies fatigue, Denies fever(s), Denies headache(s) and Denies weakness ENT Denies dizziness and Denies headache(s) Card Denies chest pain, Denies lightheadedness, Denies dyspnea and Denies other (Palpitations) Resp Denies cough, Denies dyspnea, Denies wheezing and Denies other ( shortness of breath) GI Denies abdominal pain, Denies melena, Denies hematochezia, Denies change in bowel habits, Denies dyspepsia and Denies nausea Denies hematuria and Denies dysuria Musc Denies abnormal gait, Denies myalgias, Denies arthralgias, Denies numbness Skin/Breast Denies rash, Denies unusual bruising and Denies wounds Neuro Denies abnormal gait, Denies dizziness, Denies headache(s), Denies memory loss, Denies numbness, Denies Sensory deficit (Neuro), Denies tingling and Denies weakness Psych Denies anxiety, Denies depression, Denies memory loss Endo Denies cold intolerance, Denies fatigue, Denies heat intolerance, Denies polydipsia and Denies polyuria Aller/Immun Denies wheezing Physical exam (Primary Care) Vital Signs: Last Vital Signs Temp 97.5 F 09/05/23 15:25 Pulse 72 09/05/23 15:25 Resp 16 09/05/23 15:25 BP 137/67 09/05/23 15:25 Pulse Ox 99 09/05/23 15:25 Oxygen Delivery Method Room Air 09/05/23 15:25 BMI result Body Mass Index 25.2 Tobacco/Smoking Status: Tobacco use Status Tobacco use date assessed 09/05/23 09/05/23 15:26 Patient Tobacco Use Status Never used Tobacco 09/05/23 15:13 e-Cigarette/Vaping Use Never Used 09/05/23 15:13 Thrive Assessment: Date of Thrive Assessment Date Thrive assessed 08/19/23 09/05/23 15:13 Const Other: General: no acute distress and well developed Nutritional Appearance: well nourished Orientation/consciousness: patient oriented x3 HENIN Head: Yes normocephalic and Yes atraumatic Eyes General: appearance normal, both eyes and all related structures Pupils: Equal, round and reactive pupils present EOM: EOMs intact bilaterally Resp Effort & Inspection: normal respiratory effort Auscultation: clear to auscultation bilaterally Cardio Rate: regular rate Rhythm: regular rhythm Heart sounds: S1 normal heart sound present, S2 normal heart sound present, no gallops, no murmurs and no rubs GI Palpation (GI): No Abdominal aortic bruit present, Soft to palpation, nontender, No hepatosplenomegaly present and No Rebound tenderness present Auscultation: normal bowel sounds General: Yes no CVA tenderness Back/Spine/Pelvis Back: no CVA tenderness Cervical Spine: cervical ROM normal and No Cervical spine tenderness Thoracic/Lumbar Spine: thoraco-lumbar ROM normal, No pain with thoraco-lumbar ROM, No thoracic spinal tenderness and No lumbar spinal tenderness Extrem General: Yes normal to inspection, No edema and No calf tenderness Skin General: warm and dry. Normal skin color. Normal skin turgor Neuro General: patient oriented x3, no focal neuro deficit Cranial nerves: Yes Equal, round and reactive pupils present Cognition (Neuro): normal cognition Gait exam (Neuro): Arrived and departed in a wheelchair Sensory Exam: No Sensory deficit (Neuro) Psych Appearance: grossly normal Affect: normal affect Attitude: cooperative Thought process: Normal thought process present Assessment and Plan Assessment & Plan (1) Neuropathy involving both lower extremities: Code(s): G57.93 - Unspecified mononeuropathy of bilateral lower limbs Plan: Intermittent pinching/tingling sensation to both legs, left more frequent than right for the past few days No loss of sensation. No overt injury/trauma She is ambulatory with slow but steady gait Will trial gabapentin 200 mg every night. Advised to take as prescribed. Instructed on the risks, benefits, and potential adverse reactions of the medication Follow-up as planned in October for hypertension and hyperlipidemia Return sooner with worsening or new symptoms Verbalized understanding and agreed with the treatment plan (2) HTN (hypertension): Code(s): I10 - Essential (primary) hypertension Qualifiers: Hypertension type: essential hypertension Qualified Code(s): I10 - Essential (primary) hypertension Plan: Blood pressure is 137/67, within goal of less than 140/90 Continue current treatment regimen Follow-up as planned Orders: Orders Lipid Panel Today E78.5 - Hyperlipidemia, unspecified Medications: New gabapentin 200 mg (2 x 100 mg) PO BEDTIME 30 days 60 caps 0RF Coding Level of Care Code Est Pt Level 4 (97441) Complex EM visit Add On G2211 Diagnoses Neuropathy involving both lower extremities G57.93 Essential hypertension I10 Hypertension type: essential hypertension
[2023-09-05 15:25] VITALS: BP 137/67; PULSE 72; RESP 16; TEMP 36.4; O2SAT 99; BMI 25.2
== END 2023-09-05 15:48 | disposition home or self-care (01) ==
PROVIDERS: PCP Nurse Practitioner Family; Visit Provider Nurse Practitioner Family
DX: G57.93 Unspecified mononeuropathy of bilateral lower limbs (principal); I10 Essential (primary) hypertension
CPT/HCPCS: 99214; G2211

== ENCOUNTER 2023-09-26 11:28 | Outpatient (AMB) | payer OTHER, SELFPAY ==
--- NOTE | 2023-09-26 11:33 | MHC.OFFVIS ---
Vital Signs 09/26/23 11:35 Height 5 ft 6 in BP 126/74 Blood Pressure Location Lt brachial Position Sitting Respiration 13 Pulse 67 Pulse Source Pulse Oximeter Pulse Oximetry (%) 96 Oxygen Delivery Method Room Air Intake Visit Reasons: Hypertension Intake Note: Patient is here to follow up for hypertension. Patient is accompanied by her daughter who reports patients blood pressure most stabilized mid-day and often reading higher in the mornings and evenings. Patient uses an automatic blood pressure cuff for the arm at home. Routeman Required: No Accompanied by: Daughter Allergies apple [Apple] Allergy (Severe, Verified 09/26/23 11:42) THROAT SWELLING pollen extracts [POLLEN] Allergy (Intermediate, Verified 09/26/23 11:42) SNEEZING COUGHING ALOT kiwi [Kiwi (Actinidia Chinensis)] Adverse Reaction (Intermediate, Verified 09/26/23 11:42) VOMITING avocado [Avocado] Adverse Reaction (Mild, Verified 09/26/23 11:42) VOMITING HPI Comments Details: 68-year-old female accompanied by her daughter, presents for hypertension follow-up. She has a nurse from [facility] who has been reporting elevated blood pressure readings. Her daughter notes that the patient's blood pressure is usually elevated in the morning and evening (160/10s/80s-90s) and well controlled in the afternoon (130s-140s/70s-80s) using an automatic blood pressure monitor. She notes that patient takes both amlodipine and lisinopril in the morning as prescribed. She offers no complaints and denies acute symptoms at this time. [facility] Medical History Seizure Brain cancer Metabolic alkalosis with respiratory acidosis Encounter for palliative care Sebaceous cyst of axilla Essential hypertension PVC (premature ventricular contraction) PAC (premature atrial contraction) Torticollis, acquired UTI (urinary tract infection), bacterial Bladder incontinence Unspecified urinary incontinence Abscess Symptomatic PVCs Physical exam, annual Stroke Insomnia Closed fracture of fibula with routine healing Fracture of distal end of fibula Right ankle pain HTN (hypertension) DVT (deep venous thrombosis) Surgical History Hx of section Hx of tubal ligation H/O craniotomy Family History Mother Diabetes Father Heart disease Family/Other Breast cancer Brain cancer Diabetes Social History Household Members: Spouse Housing: Apartment Housing Other:: Lives with Spouse Do you presently have visiting nurse or other home services: Yes Unable to assess alcohol history related to: Unable to respond Alcohol intake: never Patient Tobacco Use Status: Never used Tobacco e-Cigarette/Vaping Use: Never Used Second Hand Smoke Exposure: No Advance Directives Date on File: 02/12/20 service: No Current occupational status: retired and disabled Cognitive needs: Yes Hearing needs: No Vision needs: Yes Female Reproductive History Menstrual Age of Menarche: 9 Review of Systems Const Details: Const Denies chills, Denies fatigue, Denies fever(s), Denies headache(s) and Denies weakness ENT Denies dizziness and Denies headache(s) Card Denies chest pain, Denies lightheadedness, Denies dyspnea and Denies other (Palpitations) Resp Denies cough, Denies dyspnea, Denies wheezing and Denies other ( shortness of breath) GI Denies abdominal pain, Denies melena, Denies hematochezia, Denies change in bowel habits, Denies dyspepsia and Denies nausea Denies hematuria and Denies dysuria Musc Denies myalgias, Denies arthralgias, Denies numbness and Denies tingling Skin/Breast Denies rash, Denies unusual bruising and Denies wounds Neuro Denies abnormal gait, Denies dizziness, Denies headache(s), Denies memory loss, Denies numbness, Denies Sensory deficit (Neuro), Denies tingling and Denies weakness Psych Denies anxiety, Denies depression, Denies memory loss Endo Denies cold intolerance, Denies fatigue, Denies heat intolerance, Denies polydipsia and Denies polyuria Aller/Immun Denies wheezing Physical Exam Vital Signs: Last Vital Signs Pulse 67 09/26/23 11:35 Resp 13 09/26/23 11:35 BP 126/74 09/26/23 11:35 Pulse Ox 96 09/26/23 11:35 Oxygen Delivery Method Room Air 09/26/23 11:35 Const Other: General: no acute distress and well developed Nutritional Appearance: well nourished Orientation/consciousness: patient oriented x3 HENMT Head: Yes normocephalic and Yes atraumatic Eyes General: appearance normal, both eyes and all related structures Pupils: Equal, round and reactive pupils present EOM: EOMs intact bilaterally Resp Effort & Inspection: normal respiratory effort Auscultation: clear to auscultation bilaterally Cardio Rate: regular rate Rhythm: regular rhythm Heart sounds: S1 normal heart sound present, S2 normal heart sound present, no gallops, no murmurs and no rubs GI Palpation (GI): No Abdominal aortic bruit present, Soft to palpation, nontender, No hepatosplenomegaly present and No Rebound tenderness present Auscultation: normal bowel sounds General: Yes no CVA tenderness Back/Spine/Pelvis Back: no CVA tenderness Cervical Spine: cervical ROM normal and No Cervical spine tenderness Thoracic/Lumbar Spine: thoraco-lumbar ROM normal, No pain with thoraco-lumbar ROM, No thoracic spinal tenderness and No lumbar spinal tenderness Extrem General: Yes normal to inspection, No edema and No calf tenderness Skin General: warm and dry. Normal skin color. Normal skin turgor Neuro General: patient oriented x3, gait baseline, no focal neuro deficit Cranial nerves: Yes Equal, round and reactive pupils present Cognition (Neuro): normal cognition Gait exam (Neuro): Baseline gait present Sensory Exam: No Sensory deficit (Neuro) Psych Appearance: grossly normal Affect: normal affect Attitude: cooperative Thought process: Normal thought process present Assessment & Plan Assessment & Plan (1) HTN (hypertension): Code(s): I10 - Essential (primary) hypertension Category: Medical Qualifiers: Hypertension type: essential hypertension Qualified Code(s): I10 - Essential (primary) hypertension Plan: Resting blood pressure is 126/74, within goal of less than 140/90 Advised to take amlodipine 5 mg daily at night and lisinopril 20 mg daily in the morning Low-sodium diet encouraged Instructed on proper blood pressure monitoring techniques Follow-up as planned next month or return sooner with symptoms or concerns Verbalized understanding and agreed with treatment plan Coding Level of Care Code Est Pt Level 3 (88184) Diagnoses Essential hypertension I10 Hypertension type: essential hypertension
[2023-09-26 11:35] VITALS: BP 126/74; PULSE 67; RESP 13; O2SAT 96
== END 2023-09-26 13:01 | disposition home or self-care (01) ==
PROVIDERS: PCP Nurse Practitioner Family; Visit Provider Nurse Practitioner Family
DX: I10 Essential (primary) hypertension (principal)
CPT/HCPCS: 99213

== ENCOUNTER 2023-10-01 14:38 | Inpatient (IN) | payer OTHER, SELFPAY ==
[2023-10-01] VITALS (9 sets, daily range): BP systolic 171–202; BP diastolic 83–106; PULSE 88–109; RESP 16–20; TEMP 36.8–37.6; O2SAT 95–100; BMI 25.3
--- NOTE | ~2023-10-01 | CT_ITS ---
EXAMINATION: CT ANGIOGRAM HEAD CT ANGIOGRAM NECK CLINICAL INFORMATION: Reason for Exam L sided deficits COMPARISON: CTA head and neck 12/03/2022 TECHNIQUE: Initial noncontrast transportation program director imaging of the head and neck was performed. Comparison is made with noncontrast head CT from earlier today. Test bolus sequences followed by intravenous administration 65 mL of Omnipaque 350. Helical imaging was performed in the axial plane from the aortic arch to the skull vertex. Delayed postcontrast imaging of the head was also performed. The data was processed at the staff technologist's workstation for generation of MIP sequences. Angled MIPs and volume rendered reformatted images were also generated at an offline 3D workstation. Stenoses are assessed in accordance with Justice et al. Quantification of Carotid Stenosis on CT Angiography. AJR 2006. 27(1):13-19. [address] CT examination was performed using dose optimization techniques as appropriate, variously including the following: *Automated exposure control *Adjustment of mA and/or kV according to patient size (this includes techniques or standardized protocols for targeted exams where dose is matched to indication/reason for exam; i.e. extremities or head) *Use of iterative reconstruction technique DLP: 1623.18 mGy-cm mGy-cm FINDINGS: Suboptimal evaluation secondary to patient positioning. CT HEAD: No abnormal intracranial enhancement is visualized. Please see separately dictated CT scan of the head for additional intracranial findings.. CTA HEAD: Anterior circulation: Right internal carotid artery: Atherosclerosis without flow-limiting stenosis. Right middle cerebral artery: No hemodynamically significant stenosis. Right anterior cerebral artery: No hemodynamically significant stenosis. Left internal carotid artery: Atherosclerosis without flow-limiting stenosis. Left middle cerebral artery: No hemodynamically significant stenosis. Left anterior cerebral artery: Diffusely attenuated Posterior circulation: Right vertebral artery: No hemodynamically significant stenosis. Left vertebral artery: No hemodynamically significant stenosis. Basilar artery: No hemodynamically significant stenosis. Right posterior cerebral artery: No hemodynamically significant stenosis. Left posterior cerebral artery: No hemodynamically significant stenosis. No high flow vascular malformation or significant aneurysmal dilatation is visualized. The major dural venous sinuses are grossly within normal limits given arterial technique. CTA NECK: Aortic arch: Normal anatomy. Right common carotid artery: No hemodynamically significant stenosis. Retropharyngeal course. Right proximal internal carotid artery: No hemodynamically significant stenosis. Retropharyngeal course Right mid/distal internal carotid artery: No hemodynamically significant stenosis. Left common carotid artery: No hemodynamically significant stenosis.Retropharyngeal course Left proximal internal carotid artery: No hemodynamically significant stenosis.Retropharyngeal course Left mid/distal internal carotid artery: No hemodynamically significant stenosis. Right vertebral artery: No hemodynamically significant stenosis. Left vertebral artery: No hemodynamically significant stenosis. CT NECK: Diffusely heterogeneous thyroid gland with multiple subcentimeter nodules for which no imaging follow-up is recommended per size criteria. Multilevel degenerative changes of the cervical spine are not well evaluated given patient positioning. Marked reversal the normal cervical lordosis. CT/CT angio head neck stroke IMPRESSION: CTA NECK: No hemodynamically significant stenosis. CTA HEAD: Markedly degraded evaluation secondary to patient positioning. Within this constraint, there is diffuse attenuation of the left anterior cerebral artery that is likely chronic. No definite new proximal vessel occlusion. This critical result was discussed with Dr. Young at 4:12 on 10/01/23 and it was ascertained that the content and urgency of the report was understood at the time of direct communication.
--- NOTE | ~2023-10-01 | CT_ITS ---
EXAMINATION: CT HEAD WITHOUT CONTRAST (STROKE PROTOCOL) CLINICAL INFORMATION: Stroke protocol. Headache. Left-sided deficits COMPARISON: Portions of a previous CT 09/02/23 TECHNIQUE: Contiguous axial imaging was performed from the skull base to vertex without intravenous administration of contrast. This CT examination was performed using dose optimization techniques as appropriate, variously including the following: *Automated exposure control *Adjustment of mA and/or kV according to patient size (this includes techniques or standardized protocols for targeted exams where dose is matched to indication/reason for exam; i.e. extremities or head) *Use of iterative reconstruction technique DLP: 917 mGy-cm FINDINGS: The study is limited. Positioning is nonstandard. Reformatting was performed. There is no evidence of a recent intracranial hemorrhage or extra-axial collection. The third ventricle is midline. There is possible shift of the midline toward the right anteriorly. This may be related to volume loss. There is dilation of the frontal horns perhaps related to volume loss in the overlying brain parenchyma. This is similar to previous. There is no evidence of an intra-axial mass. There are no new suspicious focal areas of abnormal brain attenuation. No new abnormality of the corey-white interface. There is no evidence of acute territorial infarct. Extensive low-attenuation with volume loss in the frontal lobes right greater than left. There is metallic artifact possibly related to aneurysm clipping. Evidence of right frontal craniotomy. The calvarium is thickened. CT/CT head for stroke IMPRESSION: 1. There is no evidence of a recent intracranial hemorrhage. 2. No acute infarct. 3. Previous right frontal craniotomy. Suspect previous aneurysm clipping. There is encephalomalacia with compensatory dilation of the frontal horns of the lateral ventricles which appears similar to previous. The study is limited This critical result was discussed with Dr Young at 1501 hours on 10/01/23. It was ascertained that the content and urgency of the report was understood at the time of direct communication.
--- NOTE | ~2023-10-01 | MR_ITS ---
EXAMINATION: MR BRAIN WITHOUT CONTRAST CLINICAL INFORMATION: Left-sided weakness. Cerebrovascular accident. Seizure. COMPARISON: CTA head and neck from 10/01/2023. TECHNIQUE: MRI of the brain was obtained using routine sequences without contrast. FINDINGS: Changes of prior right frontal craniotomy. Susceptibility artifact associated with surgical clipping along the anterior right frontal lobe. No focal restricted diffusion is demonstrated to suggest acute or subacute cerebral ischemia. Chronic encephalomalacia the anterior right greater than left frontal lobes with hemosiderin staining. No evidence of acute hemorrhagic products on heme-sensitive imaging. Scattered and partially confluent periventricular, deep white matter, and brainstem T2 FLAIR hyperintensities consistent with moderate underlying microangiopathy. Ex vacuo dilatation of the frontal horns of the lateral ventricles. Otherwise, the ventricles are normal in morphology and size. No abnormal mass effect. No midline shift. Normal appearance of the pituitary gland. Normal positioning of the cerebellar tonsils. Normal arterial and venous vascular flow voids are present. Normal, homogeneous marrow signal. Moderate degenerative spondyloarthropathy of the visualized upper cervical spine. Mild mucosal thickening of the paranasal sinuses. No signal abnormalities within the mastoids. MR/MR head/brain wo con IMPRESSION: 1. No acute intracranial abnormalities. 2. Chronic encephalomalacia of the anterior right greater than left frontal lobes. Moderate underlying microangiopathy.
--- NOTE | 2023-10-01 14:42 | ECG_ITS ---
Test Reason : stroke Blood Pressure : / mmHG Vent. Rate : 108 BPM Atrial Rate : 108 BPM P-R Int : 170 ms QRS Dur : 072 ms QT Int : 306 ms P-R-T Axes : 068 022 043 degrees QTc Int : 410 ms Artifact in tracing Sinus tachycardia Otherwise normal ECG When compared with ECG of 02-SEP-2023 16:55, No significant change was found Referred By: Tomasa Young Electronically Signed By:MICAEAL OROZCO
--- NOTE | 2023-10-01 15:00 | ED.NEUROSD ---
HPI - Neuro Symptoms/Deficit General Chief Complaint: Stroke Stated Complaint: STROKE ALERT,NO MVEMENT L SIDE,L BLOWN PUPIL Time Seen by Provider: 10/01/23 14:41 Source: patient, family, EMS and old records reviewed Mode of arrival: EMS Limitations: other (poor historian) History of Present Illness ED Provider: [place] HPI Narrative: 68 yo female with PMH of brain cancer s/p radiation and chemo, seizures, DVT on xarelto, HLD, who did miss a seizure dose yesterday and seemed more shaky but no seizure noted. Daughter saw her today and they noted that patient was more weak appearing and last known well 1245pm. No seizure again noted but then around 130pm saw flaccid paralysis of L side which was new. No trauma reported. Onset (ago): hour(s) (today 1pm) Last Observed Normal: 12:45 Timing confirmed by: family member Location: left face and left leg History of same: No Severity: severe Quality: weak Relieving factors: none Exacerbating factors: none Context: sudden onset On Anticoagulants: Yes Associated symptoms: headaches Treatments Prior to Arrival: none Related Data Home Medications ?Medication ?Instructions ?Recorded ?Confirmed multivitamin 1 tab PO DAILY 03/30/22 09/05/23 levetiracetam 100 mg/mL oral 1,000 mg PO BID 07/10/23 09/05/23 solution albuterol sulfate 90 mcg/actuation 2 puff inhalation Q4H PRN SOB 08/18/23 09/05/23 aerosol inhaler (Ventolin HFA) Previous Rx's ?Medication ?Instructions ?Recorded miscellaneous medical supply #[id number] ea 10/05/22 atorvastatin 40 mg tablet 40 mg PO DAILY #90 tabs 04/18/23 aspirin 81 mg tablet,delayed 81 mg PO DAILY #90 tabs 04/20/23 release amlodipine 5 mg tablet 5 mg PO DAILY 90 days #90 tabs 05/29/23 cholecalciferol (vitamin D3) 50 50 mcg PO DAILY 90 days #90 tabs 07/10/23 mcg (2,000 unit) tablet lisinopril 20 mg tablet 20 mg PO DAILY #90 tabs 08/22/23 albuterol sulfate 90 mcg/actuation 2 inh inhalation Q4-6H PRN 09/02/23 breath activated powder inhaler shortness of breath or wheezing #1 ea benzonatate 100 mg capsule 100 mg PO BID PRN cough #20 caps 09/02/23 docusate sodium 100 mg capsule 100 mg PO BEDTIME #90 caps 09/04/23 gabapentin 100 mg capsule 200 mg (2 x 100 mg) PO BEDTIME 30 09/05/23 days #60 caps rivaroxaban 20 mg tablet (Xarelto) 20 mg PO DAILY 30 days #30 tabs 09/27/23 Allergies Allergy/AdvReac Type Severity Reaction Status Date / Time apple [Apple] Allergy Severe THROAT Verified 10/01/23 14:45 SWELLING pollen extracts [POLLEN] Allergy Intermediate SNEEZING Verified 10/01/23 14:45 COUGHING ALOT kiwi AdvReac Intermediate VOMITING Verified 10/01/23 14:45 [Kiwi (Actinidia Chinensis)] avocado [Avocado] AdvReac Mild VOMITING Verified 10/01/23 14:45 Review of Systems Review of Systems: Constitutional : No Fever, No Chills, No Fatigue ENT/Mouth : No sore throat, No Rhinorrhea Eyes: No Eye Pain, No Swelling, No Redness Cardiovascular : No Chest Pain, No SOB, No Dyspnea on Exertion Respiratory : No Cough, No Sputum Gastrointestinal : No Nausea, No Vomiting, No Diarrhea, No abdominal Pain Genitourinary : No Dysuria, No Urinary Frequency, No Hematuria, Musculoskeletal : No joint pain, No Myalgias, No Joint Swelling Skin : No Skin Lesions, No rash Neuro : pos Weakness, No Numbness, No Dizziness, positive Headache Psych : No Anxiety/Panic, No Depression All other systems reviewed and are negative [facility] Past Medical History Source: old records reviewed and obtained from family Medical History Seizure Brain cancer Metabolic alkalosis with respiratory acidosis Encounter for palliative care Sebaceous cyst of axilla Essential hypertension PVC (premature ventricular contraction) PAC (premature atrial contraction) Torticollis, acquired UTI (urinary tract infection), bacterial Bladder incontinence Unspecified urinary incontinence Abscess Symptomatic PVCs Physical exam, annual Stroke Insomnia Closed fracture of fibula with routine healing Fracture of distal end of fibula Right ankle pain HTN (hypertension) DVT (deep venous thrombosis) Surgical History Hx of section Hx of tubal ligation H/O craniotomy Family History Family History Mother Diabetes Father Heart disease Family/Other Breast cancer Brain cancer Diabetes Social History Social History Household Members: Spouse Housing: Apartment Housing Other:: Lives with Spouse Do you presently have visiting nurse or other home services: Yes Unable to assess alcohol history related to: Unable to respond Alcohol intake: never Patient Tobacco Use Status: Never used Tobacco e-Cigarette/Vaping Use: Never Used Second Hand Smoke Exposure: No Advance Directives: Yes Advance Directives on File: Yes Advance Directives Date on File: 02/12/20 service: No Current occupational status: retired and disabled Cognitive needs: Yes Hearing needs: No Vision needs: Yes Physical Exam Vital Signs: Vital Signs: Last Vital Signs Temp 98.3 F 10/01/23 15:08 Pulse 98 10/01/23 16:26 Resp 16 10/01/23 16:26 BP 200/104 H 10/01/23 16:29 Pulse Ox 99 10/01/23 16:26 O2 Del Method Room Air 10/01/23 16:26 BMI result Body Mass Index 25.3 Appearance: Alert. Oriented X2 (initially confused on time). Mild acute distress. Eyes: Pupils equal, round and reactive to light. ENT: Pharynx normal. Neck: Normal inspection. Neck supple. CVS: Normal heart rate and rhythm. Pulses normal. Respiratory: No respiratory distress. Breath sounds normal. Abdomen: Soft and non-tender. Skin: Skin warm and dry. Normal skin color. Normal skin turgor. Extremities: No lower extremity edema. No calf ttp Neuro: Oriented X 2. L sided no effort against gravity, can feel me touch L side. denies pain, no swelling. No signs of infection. mild L facial droop Medications Administered Discontinued Medications Generic Name Dose Route Start Last Admin Trade Name Freq PRN Reason Stop Dose Admin Iohexol 65 ml 10/01/23 15:08 10/01/23 15:08 Iohexol 350 Mg/Ml 100 Ml Infus..Btl IV 10/01/23 15:09 65 ml ONCE ONE Administration Medical Decision Making Medical Decision Making MDM Narrative: 68 yo female with PMH of brain cancer s/p radiation and chemo, seizures, DVT on xarelto, HLD, here with L sided weakness no seizures reported she is not a candidate for TNK given xarelto use would be in thrombectomy window. At this time labs, stroke protocol. could be stroke vs todds paralysis. they deny seizure at home. She is HTNive but if stroke noted will hold off treatment patient on xarelto will hold off aspirin given bleeding risks Differential Diagnosis Differential Diagnoses: The differential diagnosis associated with the presentation includes seizure, stroke, todds paralysis Admission/Observation Consideration of admission/observation: Escalation of care including admission/observation considered admit until at baseline Consult Healthcare Provider Management of the patient was discussed with: Hospitalist (will admit) Lab Data MDM Lab Attestation statement: I reviewed the patient's lab results. 10/01/23 15:21 10/01/23 15:21 Labs: Lab Results 10/01/23 10/01/23 Range/Units 14:46 15:21 WBC 10.8 (4.8-10.8) X10*3/uL RBC 5.22 (4.20-5.50) X10*6/uL Hgb 14.6 (12.0-16.0) g/dl Hct 45.6 (37.0-47.0) % MCV 87.4 (80.0-98.0) fL MCH 28.0 (27.0-33.0) pg MCHC 32.0 (31.0-35.0) g/dl RDW 14.0 (11.0-16.0) % Plt Count 287 (160-400) X10*3/uL MPV 9.9 (9.4-12.3) fL Immature Gran % (Auto) 0.2 (0.0-0.4) % Neut % (Auto) 89.2 H (45-73) % Lymph % (Auto) 7.4 L (20-40) % [place] % (Auto) 2.5 (2-11) % Eos % (Auto) 0.1 (0-4) % Baso % (Auto) 0.6 (0-2) % Lymph # (Auto) 0.8 L (1.2-4.9) X10*3/uL [place] # (Auto) 0.3 (0.1-1.2) X10*3/uL Eos # (Auto) 0.0 (0.0-0.4) X10*3/uL Baso # (Auto) 0.1 (0.0-0.2) X10*3/uL Abs Immat Gran (auto) 0.02 (0.00-0.03) X10*3/uL Absolute Neuts (auto) 9.6 H (2.0-8.3) x10*3/uL Absolute Nucleated RBC 0.000 (0.0-0.012) X10*3/uL Nucleated RBC % (auto) 0.0 (0.0-0.2) /100WBC PT 21.3 H (11.1-13.3) SEC INR 1.8 H (0.9-1.1) Sodium 139 (135-145) mmol/L Potassium 3.8 (3.3-5.1) mmol/L Chloride 101 (96-108) mmol/L Carbon Dioxide 30 H (22-29) mmol/L Anion Gap 12 (12-20) BUN 9 (9-16) mg/dL Creatinine 0.72 (0.5-1.4) mg/dL Estim Creat Clear Calc 71.7 Estimated GFR > 60 POC Glucose 123 H (60-115) mg/dL Random Glucose 143 H (60-115) mg/dL Calcium 9.8 (8.4-10.2) mg/dL Magnesium 2.1 (1.6-2.6) mg/dL Total Bilirubin 0.4 (0.0-1.0) mg/dL Direct Bilirubin 0.2 (0.0-0.5) mg/dL AST 18 (5-31) U/L ALT 16 (0-31) U/L Alkaline Phosphatase 112 (39-117) U/L Troponin I High Sens 11.2 (<3.5-17.0) ng/L Total Protein 7.8 (6.5-8.0) g/dL Albumin 4.1 (3.5-5.0) g/dL Triglycerides 31 (<150) mg/dL Cholesterol 141 (<200) mg/dL LDL Cholesterol, Calc 66 (<100) mg/dL HDL Cholesterol 69 (>40) mg/dL Lipase 21 (8-78) U/L Independent Interpretation I performed an independent interpretation of an: EKG and CT Scan Interpretation: Rate: 108 Rhythm: sinus tachycardia [place]: normal Normal P waves. Normal [place]. Normal QRS complex. ST T wave : normal no CHLOÉ qTC: 410 prior studies: no acute ischemia The study has been interpreted contemporaneously by me. . Radiology Impression Discussion of test interpretation with radiology: I discussed test interpretation with the radiologist and I have reviewed the radiologist's reading. Radiologist Impression: 301pm CT head very limited old craniotomy aneurysm clip no acute ICH no LVO on CTA 417pm Independent Historian Clinical information obtained from an independent historian. History obtained from or confirmed by: EMS External Record Review External record reviewed: Inpatient record NIH Stroke Scale Internal: Initial- Upon Arrival Level of Consciousness: Alert Level of Consciousness Questions: Answers one question correctly Level of Consciousness Commands: Performs both tasks correctly Best Gaze: Partial gaze palsy Visual: No visual loss Facial Palsy: Minor paralyis Motor Arm (Right): Drift Motor Arm (Left): No effort against gravity Motor Leg (Right): No drift Motor Leg (Left): No effort against gravity Limb Ataxia: Absent Sensory: Normal Best Language: No aphasia Dysarthia: Normal Extinction and Inattention: No abnormality Score: 10 Critical Care Time Critical Care Time Critical Care Time: Yes Total Critical Care Time: 45 Attestation: stroke protocol, family discussion, review of records, admission I attest to this time spent taking care of the patient Discharge Plan Discharge Clinical Impression: Acute left-sided weakness Patient Disposition: Admitted As Inpatient Prescriptions: No Action (DME) miscellaneous medical supply Misc See Rx Instructions .ROUTE .MEDSUPPLY Qty: 240 6RF Rx Instructions: Disposable Diaper-PullUps. size large 8x daily As directed, 30 day supply atorvastatin 40 mg tablet 40 mg PO DAILY Qty: 90 1RF aspirin 81 mg tablet,delayed release (DR/EC) 81 mg PO DAILY Qty: 90 1RF amlodipine 5 mg tablet 5 mg PO DAILY 90 Days Qty: 90 1RF Xarelto 20 mg tablet 20 mg PO DAILY 30 Days Qty: 30 3RF Rx Instructions: must administer with evening meal albuterol sulfate 90 mcg/actuation aerosol powdr breath activated 2 inh inhalation Q4-6H PRN (Reason: shortness of breath or wheezing) Qty: 1 0RF benzonatate 100 mg capsule 100 mg PO BID PRN (Reason: cough) Qty: 20 0RF albuterol sulfate [Ventolin HFA] 90 mcg/actuation HFA aerosol inhaler 2 puff INHALATION Q4H PRN (Reason: SOB) lisinopril 20 mg Tablet 20 mg PO DAILY Qty: 90 0RF Protocol: Hold for SBP< HOLD for SBP < : 90 multivitamin Tablet 1 tab PO DAILY gabapentin 100 mg capsule 200 mg PO BEDTIME 30 Days Qty: 60 0RF levetiracetam 100 mg/mL solution 1,000 mg PO BID cholecalciferol (vitamin D3) 50 mcg (2,000 unit) tablet 50 mcg PO DAILY 90 Days Qty: 90 1RF docusate sodium 100 mg capsule 100 mg PO BEDTIME Qty: 90 3RF Print Language: Swazi
[2023-10-01 15:01] LABS: Glucose, Whole Blood 123 mg/dL (60-115)
[2023-10-01] MEDS: iohexoL 350 MG/ML 100 ML INFUS..BTL 65 ML IV (15:08)
--- NOTE | 2023-10-01 15:08 | PC.NURSE ---
Pt to room [address]
[2023-10-01 15:27] LABS: MANUAL DIFF FLAG NO
[2023-10-01 15:29] LABS: Basophils Absolute Auto 0.1 X10*3/uL (0.0-0.2); Basophils Percent Auto 0.6 % (0-2); Eosinophils Percent Auto 0.1 % (0-4); Hematocrit 45.6 % (37.0-47.0); Hemoglobin 14.6 g/dl (12.0-16.0); Imm Gran Abs Auto 0.02 X10*3/uL (0.00-0.03); Imm Gran Pct Auto 0.2 % (0.0-0.4); Lymphocytes Absolute Auto 0.8 X10*3/uL (1.2-4.9); Lymphocytes Percent Auto 7.4 % (20-40); Mean Corpuscular Volume 87.4 fL (80.0-98.0); Mean Platelet Volume 9.9 fL (9.4-12.3); Monocytes Absolute Auto 0.3 X10*3/uL (0.1-1.2); Monocytes Percent Auto 2.5 % (2-11); Neutrophils Absolute Auto 9.6 x10*3/uL (2.0-8.3); Neutrophils Percent Auto 89.2 % (45-73); Platelet Count 287 X10*3/uL (160-400); Red Blood Count 5.22 X10*6/uL (4.20-5.50); White Blood Count 10.8 X10*3/uL (4.8-10.8)
[2023-10-01 15:37] LABS: INTERNATIONAL NORM RATIO 1.8 (0.9-1.1); Prothrombin Time 21.3 SEC (11.1-13.3)
[2023-10-01 15:45] LABS: Alanine Aminotransferase 16 U/L (0-31); Albumin Level 4.1 g/dL (3.5-5.0); Alkaline Phosphatase 112 U/L (39-117); Anion Gap 12 (12-20); Aspartate Amino Transferase 18 U/L (5-31); Bilirubin Direct 0.2 mg/dL (0.0-0.5); Bilirubin Total 0.4 mg/dL (0.0-1.0); Blood Urea Nitrogen 9 mg/dL (9-16); Calcium 9.8 mg/dL (8.4-10.2); Carbon Dioxide 30 mmol/L (22-29); Chloride 101 mmol/L (96-108); Creatinine Clr Calc Pharmacy 71.7; Estimated Glomerular Filt Rate > 60; Glucose Random 143 mg/dL (60-115); Lipase 21 U/L (8-78); Magnesium 2.1 mg/dL (1.6-2.6); Potassium 3.8 mmol/L (3.3-5.1); Sodium 139 mmol/L (135-145); Total Protein 7.8 g/dL (6.5-8.0)
[2023-10-01 15:53] LABS: Troponin-I High Sensitivity 11.2 ng/L (<3.5-17.0)
[2023-10-01 16:46] LABS: Cholesterol 141 mg/dL (<200); HDL Cholesterol 69 mg/dL (>40); LDL Cholesterol Calculated 66 mg/dL (<100); Triglycerides 31 mg/dL (<150)
--- NOTE | 2023-10-01 18:20 | PHA.MEDREC ---
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 Medication Reconciliation Pharmacy has completed the medication reconciliation. Family stated that all meds are crushed before administration and given with food like applesauce.
[2023-10-01] MEDS: levETIRAcetam in NaCl (iso-os) 1,000 MG/100 ML PIGGYBACK 400 MG IV (18:24)
--- NOTE | 2023-10-01 18:47 | P.HPHOSP_ITS ---
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 Also hx of DVT for which she is on Xarelto, and hx of CVA for which she is on ASA. History per pt's daughter who is her HCP and lives downstairs from her. The pt's noted the patient became lethargic and then developed L-sided facial droop and L-sided weakness around 13:30. Last known well time was 12:45. She was more shaky then usual but no clear seizure. She is R-handed. She also has severe torticollis. She missed her nighttime doses of medications last night including Keppra. Given Xarelto use, she was not a TNK candidate. She was noted to be hypertensive at 193/94. CT did not show any acute ICH and CTA did not show any LVO. The ED physician noted flaccid paralysis on the pt's left but it seems more spastic to me at this time. She is somonolent but arousable, responding in her [place] language [place] to her family but then subsequently going back to sleep. Review of Systems 2 Review of Systems: Yes Unobtainable due to mental status [facility] History Seizure Brain cancer Metabolic alkalosis with respiratory acidosis Encounter for palliative care Sebaceous cyst of axilla Essential hypertension PVC (premature ventricular contraction) PAC (premature atrial contraction) Torticollis, acquired UTI (urinary tract infection), bacterial Bladder incontinence Unspecified urinary incontinence Abscess Symptomatic PVCs Physical exam, annual Stroke Insomnia Closed fracture of fibula with routine healing Fracture of distal end of fibula Right ankle pain HTN (hypertension) DVT (deep venous thrombosis) Family History Mother Diabetes Father Heart disease Family/Other Breast cancer Brain cancer Diabetes Surgical History Hx of section Hx of tubal ligation H/O craniotomy Social History Household Members: Spouse Housing: Apartment Housing Other:: Lives with Spouse Do you presently have visiting nurse or other home services: Yes Unable to assess alcohol history related to: Unable to respond Alcohol intake: never Patient Tobacco Use Status: Never used Tobacco e-Cigarette/Vaping Use: Never Used Second Hand Smoke Exposure: No Advance Directives: Yes Advance Directives on File: Yes Advance Directives Date on File: 02/12/20 service: No Current occupational status: retired and disabled Cognitive needs: Yes Hearing needs: No Vision needs: Yes Meds Allergies Allergy/AdvReac Type Severity Reaction Status Date / Time apple [Apple] Allergy Severe THROAT Verified 10/01/23 14:45 SWELLING pollen extracts [POLLEN] Allergy Intermediate SNEEZING Verified 10/01/23 14:45 COUGHING ALOT kiwi AdvReac Intermediate VOMITING Verified 10/01/23 14:45 [Kiwi (Actinidia Chinensis)] avocado [Avocado] AdvReac Mild VOMITING Verified 10/01/23 14:45 Active Medications: Current Medications Albuterol Sulfate (Albuterol Sulfate 90 Mcg 8 Gm Inhaler) 2 puff INHALE Q6H PRN PRN Reason: Shortness of Breath Amlodipine Besylate (Amlodipine Besylate 5 Mg Tablet) 5 mg PO DAILY [facility]; Protocol Aspirin (Aspirin Enteric Coated 81 Mg Tablet.Dr) 81 mg PO DAILY [facility] Atorvastatin Calcium (Atorvastatin Calcium 40 Mg Tablet) 40 mg PO DAILY [facility] Docusate Sodium (Docusate Sodium 100 Mg Capsule) 100 mg PO BEDTIME [facility] Levetiracetam (Levetiracetam Oral Soln 500 Mg/5 Ml) 1,000 mg PO BID [facility] Lisinopril (Lisinopril 20 Mg Tablet) 20 mg PO DAILY [facility]; Protocol Multivitamins/Vitamin C (Multivitamin Tablet) 1 tab PO DAILY [facility] Rivaroxaban (Rivaroxaban 20 Mg Tablet) 20 mg PO DAILY [facility] Vitamin D (Cholecalciferol (Vitamin D3) 25 Mcg Tablet) 50 mcg PO DAILY [facility] Home Medications ?Medication ?Instructions ?Recorded ?Confirmed ?Last Taken ?Type multivitamin 1 tab PO DAILY 03/30/22 10/01/23 10/01/23 09:00 History levetiracetam 100 mg/mL oral 1,000 mg PO BID 07/10/23 10/01/2324 09:00 History solution albuterol sulfate 90 mcg/actuation 2 puff inhalation Q6H PRN SOB 08/18/23 10/01/23 Unknown History aerosol inhaler (Ventolin HFA) Physical Exam 2 Vital Signs and Narrative: Vital Signs: Last Vital Signs Temp 98.9 F 10/01/23 17:28 Pulse 95 10/01/23 17:28 Resp 18 10/01/23 17:28 BP 193/94 H 10/01/23 17:28 Pulse Ox 100 10/01/23 17:28 O2 Del Method Room Air 10/01/23 17:28 BMI result Body Mass Index 25.3 Gen: somnolent but arousable HEENT: sclera anicteric, moist mucus membranes Neck: severe torticollis Lungs: clear to auscultation bilaterally Heart: regular rate and rhythm, no murmurs Abd: soft, non-tender, non-distended Ext: no edema Skin: warm/well-perfused Neuro: somnolent but arousable, unable to assess orientation, very subtle L- sided facial droop, LUE + LLE spastic paralysis Psych: appropriate affect Results Labs 10/01/23 15:21 10/01/23 15:21 Labs: Laboratory Results - last 24 hr 10/01/23 10/01/23 14:46 15:21 MCV 87.4 MCH 28.0 MCHC 32.0 RDW 14.0 Plt Count 287 MPV 9.9 Immature Gran % (Auto) 0.2 Neut % (Auto) 89.2 H Lymph % (Auto) 7.4 L [place] % (Auto) 2.5 Eos % (Auto) 0.1 Baso % (Auto) 0.6 Lymph # (Auto) 0.8 L [place] # (Auto) 0.3 Eos # (Auto) 0.0 Baso # (Auto) 0.1 Abs Immat Gran (auto) 0.02 Absolute Neuts (auto) 9.6 H Absolute Nucleated RBC 0.000 Nucleated RBC % (auto) 0.0 PT 21.3 H INR 1.8 H Anion Gap 12 Estim Creat Clear Calc 71.7 Estimated GFR > 60 POC Glucose 123 H Random Glucose 143 H Calcium 9.8 Magnesium 2.1 Total Bilirubin 0.4 Direct Bilirubin 0.2 AST 18 ALT 16 Alkaline Phosphatase 112 Troponin I High Sens 11.2 Total Protein 7.8 Albumin 4.1 Triglycerides 31 Cholesterol 141 LDL Cholesterol, Calc 66 HDL Cholesterol 69 Lipase 21 Imaging Radiologist's Impressions: Impressions Head CT 10/01/23 14:51 IMPRESSION: 1. There is no evidence of a recent intracranial hemorrhage. 2. No acute infarct. 3. Previous right frontal craniotomy. Suspect previous aneurysm clipping. There is encephalomalacia with compensatory dilation of the frontal horns of the lateral ventricles which appears similar to previous. The study is limited This critical result was discussed with Dr Young at 1501 hours on 10/01/23. It was ascertained that the content and urgency of the report was understood at the time of direct communication. Head/Neck CTA 10/01/23 15:08 IMPRESSION: CTA NECK: No hemodynamically significant stenosis. CTA HEAD: Markedly degraded evaluation secondary to patient positioning. Within this constraint, there is diffuse attenuation of the left anterior cerebral artery that is likely chronic. No definite new proximal vessel occlusion. This critical result was discussed with Dr. Young at 4:12 on 10/01/23 and it was ascertained that the content and urgency of the report was understood at the time of direct communication. 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 Notably she did miss last night's dose of her antiepileptic. She is not a TNK candidate due to being on Xarelto and there is no LVO on CTA. L-sided weakness epilepsy hx CVA - Admit to telemetry. MRI brain, Neuro consultation. Load IV Keppra then continue usual dose. 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 Continue ASA + Xarelto + atorvastatin HTN - resume amlodipine + lisinopril tomorrow hx DVT - Xarelto code - DNR/DNI dispo - TBD I anticipate that the patient will stay at least 2 midnights as an inpatient in the hospital due to the above reasons. It is neither reasonable nor safe to care for them in a less acute setting. Quality Stroke Does the patient have a stroke diagnosis?: Yes Reason for No Anti-thrombotic by Day Two: N/A - Med Ordered VTE Prior VTE?: Yes VTE Risk Level:: Medical - moderate - high VTE Device Contraindication: N/A - Device Ordered VTE Drug Contraindication: N/A - Med Ordered
--- NOTE | 2023-10-01 20:36 | PC.NURSE ---
messaged provider that her meds are PO and she did not pass her swallow eval
--- NOTE | 2023-10-01 22:39 | MHC.EDTECH ---
Patient vitals taken RN Marine aware of Pt high bp ,Patient sleeping ,Patient daughter at bedside ,no apparent distress noted ,Call ortega within Pt reach .
--- NOTE | 2023-10-01 23:50 | PC.NURSE ---
comes in from home with lethargy , L side face droop, and weakness yesterday at 1300. PMH: tortocollis, brain tumor, epilepsy, DVT on Xarelto, CVA, Pt is alert to person and place, but somonolent. Romanian speaking. CT: negative for bleed, acute infarct. Admit for left sided weakness. CVA vs. Todds paralysis ( from seizure). 20 bilateral. Admit for brain MRI, Neuro consult, keppra . Failed dysphasia has speech consult. NPO
[2023-10-02] VITALS (16 sets, daily range): BP systolic 132–180; BP diastolic 55–86; PULSE 80–103; RESP 14–20; TEMP 36.4–38.7; O2SAT 95–98
[2023-10-02 05:21] LABS: Estimated Average Glucose 105 mg/dL; Hemoglobin A1c % 5.3 % (<6.0)
[2023-10-02 05:32] LABS: MANUAL DIFF FLAG NO
[2023-10-02 05:34] LABS: Basophils Percent Auto 0.3 % (0-2); Eosinophils Percent Auto 0.1 % (0-4); Hematocrit 42.6 % (37.0-47.0); Hemoglobin 13.7 g/dl (12.0-16.0); Imm Gran Abs Auto 0.05 X10*3/uL (0.00-0.03); Imm Gran Pct Auto 0.4 % (0.0-0.4); Lymphocytes Absolute Auto 1.7 X10*3/uL (1.2-4.9); Lymphocytes Percent Auto 13.4 % (20-40); Mean Corpuscular HGB Conc 32.2 g/dl (31.0-35.0); Mean Corpuscular Hemoglobin 27.3 pg (27.0-33.0); Mean Corpuscular Volume 84.9 fL (80.0-98.0); Monocytes Percent Auto 8.2 % (2-11); Neutrophils Absolute Auto 9.7 x10*3/uL (2.0-8.3); Neutrophils Percent Auto 77.6 % (45-73); Platelet Count 292 X10*3/uL (160-400); Red Blood Count 5.02 X10*6/uL (4.20-5.50); White Blood Count 12.5 X10*3/uL (4.8-10.8)
[2023-10-02 05:49] LABS: Anion Gap 15 (12-20); Blood Urea Nitrogen 11 mg/dL (9-16); Calcium 9.6 mg/dL (8.4-10.2); Carbon Dioxide 23 mmol/L (22-29); Chloride 103 mmol/L (96-108); Estimated Glomerular Filt Rate > 60; Glucose Random 130 mg/dL (60-115); Potassium 3.8 mmol/L (3.3-5.1); Sodium 137 mmol/L (135-145)
--- NOTE | 2023-10-02 07:45 | PC.NURSE ---
Pt sleeping soundly. per Dr Cuba PO meds to be held. Suggestions for IV allternatives recommended by this RN. remains at bedside.
--- NOTE | 2023-10-02 08:43 | PC.NURSE ---
difficult to arrouse. warm to touch. at [facility] states is not baseline behvior. is speaking less as well. no vocalizations, unable to follow commands. neck/head turned to right continually (baseline) with alvarez physical stimuli becomes slightly more responsive. mumbling replies, following a few commands. (rigt hand grasp weak, unalbe to open left eye). straight cath for urine, skin integrity is good. see VS, continuous rectal temp placed.
[2023-10-02 09:15] LABS: Glucose, Whole Blood 111 mg/dL (60-115)
[2023-10-02 09:18] LABS: Appearance Urine Cloudy; Color Urine Yellow; Glucose Urine UA Negative (Negative); Leukocyte Esterase Urine Moderate (2+) (Negative); Nitrite Urine Negative (Negative); PH 5.5 (5.0-9.0); Specific Gravity - Urine >= 1.030 (1.005-1.025); UMIC TRIGGER UACC YES; Urine Blood Large (3+) (Negative); Urine Ketones Trace mg/dL (Negative); Urine Protein 30 (1+) mg/dL (Neg-Trace)
--- NOTE | 2023-10-02 09:44 | HO.PM.IMPN ---
Subjective Subjective Date of Service: 10/02/23 Interval History: Follow up seizure, worsening encephalopathy still very sleepy, unable to swallow Review of Systems Review of Systems: Yes all other systems are reviewed and are negative Physical Exam Vital Signs: Vital Signs: Last Vital Signs Temp 101.7 F H 10/02/23 09:04 Pulse 103 H 10/02/23 09:04 Resp 18 10/02/23 09:04 BP 157/84 H 10/02/23 09:04 Pulse Ox 95 10/02/23 09:04 O2 Del Method Room Air 10/02/23 09:04 BMI result Body Mass Index 25.3 Appearing in no acute distress lung sounds are clear to auscultation heart regular rate rhythm, clear S1, S2 positive bowel sounds, abdomen is soft, nontender neuro patient is alert , sleeping Objective Data Active Medications Acetaminophen (Acetaminophen Oral Liquid 650 Mg/20.3 Ml Solution) 650 mg PO Q6H PRN PRN Reason: Pain, Mild (Pain Scale 1-3), fever or headache Acetaminophen (Acetaminophen Supp 650 Mg Supp.Rect) 650 mg AL Q6H PRN PRN Reason: Fever Albuterol Sulfate (Albuterol Sulfate 90 Mcg 8 Gm Inhaler) 2 puff INHALE Q6H PRN PRN Reason: Shortness of Breath Atorvastatin Calcium (Atorvastatin Calcium 40 Mg Tablet) 40 mg PO DAILY [facility] Last Admin: 10/02/23 07:54 Dose: Not Given Documented By: KLEBER Non-Admin Reason: NPO Docusate Sodium (Docusate Sodium 100 Mg/10 Ml Liquid) 100 mg PO BEDTIME [facility] Last Admin: 10/01/23 20:37 Dose: Not Given Documented By: JENNIFER Non-Admin Reason: Patient Condition Contraindication Enoxaparin Sodium (Enoxaparin Sodium 80 Mg/0.8 Ml Syringe) 70 mg 1 mg/kg (70 mg) SUBCUT Q12H [facility] Hydralazine HCl (Hydralazine Hcl 20 Mg/Ml Vial) 5 mg IVPUSH Q4H PRN; Protocol PRN Reason: SBP>180 Levetiracetam (Keppra) 1,000 mg in 100 mls @ 400 mls/hr IV Q12H [facility]IA Dextrose/Sodium Chloride (D5ns) 1,000 mls @ 80 mls/hr IVCONT .[id number] [facility] Magnesium Hydroxide (Milk Of Magnesia 30 Ml Oral.Susp) 30 ml PO DAILY PRN PRN Reason: Constipation Multivitamins/Vitamin C (Multivitamin Tablet) 1 tab PO DAILY [facility] Last Admin: 10/02/23 07:56 Dose: Not Given Documented By: KLEBER Non-Admin Reason: NPO Ondansetron HCl (Ondansetron Hcl 4 Mg/2 Ml Vial) 4 mg IVPUSH Q8H PRN PRN Reason: Nausea and Vomiting Rivaroxaban (Rivaroxaban 20 Mg Tablet) 20 mg PO DAILY [facility] Last Admin: 10/02/23 07:56 Dose: Not Given Documented By: KLEBER Non-Admin Reason: NPO Sodium Chloride (0.9 % Sodium Chloride Flush 3 Ml Syringe) 3 ml IVFLUSH QSHIFT [facility] Last Admin: 10/02/23 07:53 Dose: Not Given Documented By: KLEBER Non-Admin Reason: Med Not Available Vitamin D (Cholecalciferol (Vitamin D3) 25 Mcg Tablet) 50 mcg PO DAILY [facility] Last Admin: 10/02/23 07:54 Dose: Not Given Documented By: KLEBER Non-Admin Reason: NPO Labs 10/02/23 10:28 10/02/23 05:19 Labs: Laboratory Results - last 24 hr 10/01/23 10/01/23 10/02/23 14:46 15:21 05:19 MCV 87.4 MCH 28.0 MCHC 32.0 RDW 14.0 Plt Count 287 MPV 9.9 Immature Gran % (Auto) 0.2 Neut % (Auto) 89.2 H Lymph % (Auto) 7.4 L [place] % (Auto) 2.5 Eos % (Auto) 0.1 Baso % (Auto) 0.6 Lymph # (Auto) 0.8 L [place] # (Auto) 0.3 Eos # (Auto) 0.0 Baso # (Auto) 0.1 Abs Immat Gran (auto) 0.02 Absolute Neuts (auto) 9.6 H Absolute Nucleated RBC 0.000 Nucleated RBC % (auto) 0.0 PT 21.3 H INR 1.8 H Anion Gap 12 15 Estim Creat Clear Calc 71.7 77.0 Estimated GFR > 60 > 60 POC Glucose 123 H Random Glucose 143 H 130 H Estimat Average Glucose 105 Hemoglobin A1c % 5.3 Calcium 9.8 9.6 Magnesium 2.1 Total Bilirubin 0.4 Direct Bilirubin 0.2 AST 18 ALT 16 Alkaline Phosphatase 112 Troponin I High Sens 11.2 Total Protein 7.8 Albumin 4.1 Triglycerides 31 Cholesterol 141 LDL Cholesterol, Calc 66 HDL Cholesterol 69 Lipase 21 Urine Color Urine Appearance Urine pH Ur Specific [place] Urine Protein Urine Glucose (UA) Urine Ketones Urine Blood Urine Nitrite Ur Leukocyte Esterase 10/02/23 10/02/23 10/02/23 05:20 09:06 09:10 MCV 84.9 MCH 27.3 MCHC 32.2 RDW 14.0 Plt Count 292 MPV 10.0 Immature Gran % (Auto) 0.4 Neut % (Auto) 77.6 H Lymph % (Auto) 13.4 L [place] % (Auto) 8.2 Eos % (Auto) 0.1 Baso % (Auto) 0.3 Lymph # (Auto) 1.7 [place] # (Auto) 1.0 Eos # (Auto) 0.0 Baso # (Auto) 0.0 Abs Immat Gran (auto) 0.05 H Absolute Neuts (auto) 9.7 H Absolute Nucleated RBC 0.000 Nucleated RBC % (auto) 0.0 PT INR Anion Gap Estim Creat Clear Calc Estimated GFR POC Glucose 111 Random Glucose Estimat Average Glucose Hemoglobin A1c % Calcium Magnesium Total Bilirubin Direct Bilirubin AST ALT Alkaline Phosphatase Troponin I High Sens Total Protein Albumin Triglycerides Cholesterol LDL Cholesterol, Calc HDL Cholesterol Lipase Urine Color Yellow Urine Appearance Cloudy Urine pH 5.5 Ur Specific [place] >= 1.030 H Urine Protein 30 (1+) H Urine Glucose (UA) Negative Urine Ketones Trace Urine Blood Large (3+) H Urine Nitrite Negative Ur Leukocyte Esterase Moderate (2+) H Assessment and Plan (1) Acute left-sided weakness: Status: Acute Plan 68yo F with 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 Notably she did miss last night's dose of her antiepileptic. She is not a TNK candidate due to being on Xarelto and there is no LVO on CTA. Left sided weakness hx of epilepsy and CVA Head and neck CTA/CT neg for bleed or acute infarction MRI brain pending PT/OT/CADDIE SUPERVISOR consultations. hold oral medications at this time npo with IV fluids Neuro consultation> rec EEG to r/o status, MRI epilepsy continue IV Keppra for now HTN hold amlodipine + lisinopril IV hydralazine for SBP>180 hx DVT change Xarelto to therapeutic lovenox due to poor swallowing DVT prophylaxis with lovenox attending Dr. Puente DNR Quality Stroke Does the patient have a stroke diagnosis?: Yes Reason for No Anti-thrombotic by Day Two: N/A - Med Ordered VTE Prior VTE?: Yes VTE Risk Level:: Medical - moderate - high VTE Device Contraindication: N/A - Device Ordered VTE Drug Contraindication: N/A - Med Ordered
[2023-10-02 09:50] LABS: Bacteria Urine 4+ (None Seen); Hyaline Casts Urine 0-2 /LPF (0-2); RBC Urine >20 /HPF (0-2); UACC Culture Trigger YES; WBC Urine >50 /HPF (0-5)
[2023-10-02] MEDS: levETIRAcetam in NaCl (iso-os) 1,000 MG/100 ML PIGGYBACK 400 MG IV ×2 (09:50→20:21)
[2023-10-02] MEDS: Dextrose 5 % and 0.9 % NaCl 1,000 ML 80 ML IVCONT ×2 (09:53→23:13)
[2023-10-02] MEDS: Acetaminophen Supp 650 MG SUPP.RECT PR ×2 (10:02→17:32)
--- NOTE | 2023-10-02 10:15 | MHC.CM.ED ---
Pt is active with [facility]. Received a call from [facility] stating that PCP has requested a swallow eval.
--- NOTE | 2023-10-02 10:38 | MHC.SLORD ---
Addendum entered and electronically signed by GIRISH Solomon 10/02/23 14:30: Per pt's ; he has no concern for swallowing at this time. He reports that pt only has difficulty swallowing w/ large pills if they are not crushed. Addendum entered and electronically signed by GIRISH Solomon 10/02/23 14:28: NAMED ACCOUNT EXECUTIVE attempted to see pt again this afternoon. Same presentation as this morning and therefore not appropriate for PO trials. RN to [place] NAMED ACCOUNT EXECUTIVE if pt becomes more alert. Otherwise, pt to be seen tomorrow morning. Original Note: Speech Language Pathology Order Status: NAMED ACCOUNT EXECUTIVE attempted to see patient in the ED for bedside swallow eval this morning. Patient was sleeping, opening eyes momentarily with sternal rub, but quickly falling back asleep. Patient is not appropriate at this time for PO trials. NAMED ACCOUNT EXECUTIVE will return this p.m. to re-attempt eval.
[2023-10-02 10:40] LABS: INTERNATIONAL NORM RATIO 1.6 (0.9-1.1); Prothrombin Time 18.9 SEC (11.1-13.3)
[2023-10-02 10:43] LABS: Hematocrit 42.1 % (37.0-47.0); Hemoglobin 13.7 g/dl (12.0-16.0); Mean Corpuscular HGB Conc 32.5 g/dl (31.0-35.0); Mean Corpuscular Hemoglobin 27.8 pg (27.0-33.0); Mean Corpuscular Volume 85.6 fL (80.0-98.0); Mean Platelet Volume 10.4 fL (9.4-12.3); Partial Thromboplastin Time 31.9 SEC (26.0-36.8); Platelet Count 280 X10*3/uL (160-400); Red Blood Count 4.92 X10*6/uL (4.20-5.50); Red Cell Distribution Width 14.1 % (11.0-16.0); White Blood Count 12.5 X10*3/uL (4.8-10.8)
[2023-10-02] MEDS: Enoxaparin Sodium 80 MG/0.8 ML SYRINGE 70 MG SUBCUT ×2 (11:09→20:22)
--- NOTE | 2023-10-02 11:53 | PM.NEUROCN ---
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 She was unable to provide any history. Apparently her overall status was different from her baseline and she was not responding and was having more left-sided weakness. Review of Systems Review of Systems: Could not be done with [facility] Past Medical History Medical History Seizure Brain cancer Metabolic alkalosis with respiratory acidosis Encounter for palliative care Sebaceous cyst of axilla Essential hypertension PVC (premature ventricular contraction) PAC (premature atrial contraction) Torticollis, acquired UTI (urinary tract infection), bacterial Bladder incontinence Unspecified urinary incontinence Abscess Symptomatic PVCs Physical exam, annual Stroke Insomnia Closed fracture of fibula with routine healing Fracture of distal end of fibula Right ankle pain HTN (hypertension) DVT (deep venous thrombosis) Family History Family History Mother Diabetes Father Heart disease Family/Other Breast cancer Brain cancer Diabetes Surgical History Surgical History Hx of section Hx of tubal ligation H/O craniotomy Social History Social History Household Members: Spouse Housing: Apartment Housing Other:: Lives with Spouse Do you presently have visiting nurse or other home services: Yes Unable to assess alcohol history related to: Unable to respond Alcohol intake: never Patient Tobacco Use Status: Never used Tobacco e-Cigarette/Vaping Use: Never Used Second Hand Smoke Exposure: No Advance Directives: Yes Advance Directives on File: Yes Advance Directives Date on File: 02/12/20 Nutrition Risks: Difficulty swallowing service: No Current occupational status: retired and disabled Cognitive needs: Yes Hearing needs: No Vision needs: Yes Meds Allergies Allergy/AdvReac Type Severity Reaction Status Date / Time apple [Apple] Allergy Severe THROAT Verified 10/01/23 14:45 SWELLING pollen extracts [POLLEN] Allergy Intermediate SNEEZING Verified 10/01/23 14:45 COUGHING ALOT kiwi AdvReac Intermediate VOMITING Verified 10/01/23 14:45 [Kiwi (Actinidia Chinensis)] avocado [Avocado] AdvReac Mild VOMITING Verified 10/01/23 14:45 Active Medications: Current Medications Acetaminophen (Acetaminophen Oral Liquid 650 Mg/20.3 Ml Solution) 650 mg PO Q6H PRN PRN Reason: Pain, Mild (Pain Scale 1-3), fever or headache Acetaminophen (Acetaminophen Supp 650 Mg Supp.Rect) 650 mg [place] Q6H PRN PRN Reason: Fever Last Admin: 10/02/23 10:02 Dose: 650 mg Albuterol Sulfate (Albuterol Sulfate 90 Mcg 8 Gm Inhaler) 2 puff INHALE Q6H PRN PRN Reason: Shortness of Breath Atorvastatin Calcium (Atorvastatin Calcium 40 Mg Tablet) 40 mg PO DAILY [facility] Last Admin: 10/02/23 07:54 Dose: Not Given Docusate Sodium (Docusate Sodium 100 Mg/10 Ml Liquid) 100 mg PO BEDTIME [facility] Last Admin: 10/01/23 20:37 Dose: Not Given Enoxaparin Sodium (Enoxaparin Sodium 80 Mg/0.8 Ml Syringe) 70 mg 1 mg/kg (70 mg) SUBCUT Q12H [facility] Last Admin: 10/02/23 11:09 Dose: 70 mg Hydralazine HCl (Hydralazine Hcl 20 Mg/Ml Vial) 5 mg IVPUSH Q4H PRN; Protocol PRN Reason: SBP>180 Levetiracetam (Keppra) 1,000 mg in 100 mls @ 400 mls/hr IV Q12H [facility] Last Admin: 10/02/23 09:50 Dose: 400 mls/hr Dextrose/Sodium Chloride (D5ns) 1,000 mls @ 80 mls/hr IVCONT .[id number] [facility] Last Admin: 10/02/23 09:53 Dose: 80 mls/hr Magnesium Hydroxide (Milk Of Magnesia 30 Ml Oral.Susp) 30 ml PO DAILY PRN PRN Reason: Constipation Multivitamins/Vitamin C (Multivitamin Tablet) 1 tab PO DAILY [facility] Last Admin: 10/02/23 07:56 Dose: Not Given Ondansetron HCl (Ondansetron Hcl 4 Mg/2 Ml Vial) 4 mg IVPUSH Q8H PRN PRN Reason: Nausea and Vomiting Rivaroxaban (Rivaroxaban 20 Mg Tablet) 20 mg PO DAILY [facility] Last Admin: 10/02/23 07:56 Dose: Not Given Sodium Chloride (0.9 % Sodium Chloride Flush 3 Ml Syringe) 3 ml IVFLUSH QSHIFT [facility] Last Admin: 10/02/23 07:53 Dose: Not Given Vitamin D (Cholecalciferol (Vitamin D3) 25 Mcg Tablet) 50 mcg PO DAILY [facility] Last Admin: 10/02/23 07:54 Dose: Not Given Home Medications ?Medication ?Instructions ?Recorded ?Confirmed ?Last Taken ?Type multivitamin 1 tab PO DAILY 03/30/22 10/01/23 10/01/23 09:00 History levetiracetam 100 mg/mL oral 1,000 mg PO BID 07/10/23 10/01/23 10/01/23 09:00 History solution albuterol sulfate 90 mcg/actuation 2 puff inhalation Q6H PRN SOB 08/18/23 10/01/23 Unknown History aerosol inhaler (Ventolin HFA) Physical Exam Vital Signs: Vital Signs: Last Vital Signs Temp 100.9 F H 10/02/23 11:11 Pulse 100 10/02/23 11:20 Resp 18 10/02/23 11:11 BP 177/72 H 10/02/23 11:11 Pulse Ox 98 10/02/23 11:11 O2 Del Method Room Air 10/02/23 11:11 BMI result Body Mass Index 25.3 Neuro: Other: Drowsy not communicating right gaze deviation dense left hemiparesis Results Labs 10/02/23 10:28 10/02/23 05:19 Labs: Short CBC 10/01/23 10/02/23 10/02/23 Range/Units 15:21 05:20 10:28 WBC 10.8 12.5 H 12.5 H (4.8-10.8) X10*3/uL Hgb 14.6 13.7 13.7 (12.0-16.0) g/dl Hct 45.6 42.6 42.1 (37.0-47.0) % Plt Count 287 292 280 (160-400) X10*3/uL BMP 10/01/23 10/02/23 15:21 05:19 Sodium 139 137 Potassium 3.8 3.8 Chloride 101 103 Carbon Dioxide 30 H 23 BUN 9 11 Creatinine 0.72 0.67 Calcium 9.8 9.6 Liver Function 10/01/23 Range/Units 15:21 Total Bilirubin 0.4 (0.0-1.0) mg/dL Direct Bilirubin 0.2 (0.0-0.5) mg/dL AST 18 (5-31) U/L ALT 16 (0-31) U/L Alkaline Phosphatase 112 (39-117) U/L Albumin 4.1 (3.5-5.0) g/dL Urine 10/02/23 Range/Units 09:10 Urine Color Yellow Urine Appearance Cloudy Urine pH 5.5 (5.0-9.0) Ur Specific [place] >= 1.030 H (1.005-1.025) Urine Protein 30 (1+) H (Neg-Trace) mg/dL Urine Glucose (UA) Negative (Negative) mg/dL large area of central frontal encephalomalacia and evidence of previous craniotomies Assessment and Plan (1) Acute left-sided weakness: Status: Acute Unclear etiology of worsening of flu left-sided weakness. Head CT did not reveal any obvious acute abnormality. Epileptic phenomena is a possibility. An EEG is recommended to rule out status. Otherwise I will continue baseline antiepileptic agents. If possible, noncontrast MRI of brain can also help to rule out focal pathology. Procedures Date of Service Date of Service: 10/02/23
[2023-10-02 13:33] LABS: Glucose, Whole Blood 113 mg/dL (60-115)
[2023-10-02] MEDS: cefTRIAXone sodium 1 GM in 0.9 % Sodium Chloride 50 ML IV (13:34)
--- NOTE | 2023-10-02 14:02 | PC.NURSE ---
Speech at bedside again. Pt has had no neuro changes. is still somnolent and requires brisk physical stimuli for any verbal response. speech is not clear and pt can barely follow simple commands. at bedside and aware of plan for MRI and EEG/
[2023-10-02 15:42] LABS: Prothrombin Time Whole Bld POC 17.3 sec (11.1-13.5); ~PT, ~INR - Anti Coag Clinic 1.4 (0.9-1.1)
--- NOTE | 2023-10-02 19:09 | PC.NURSE ---
assumed care of pt at 1900. pt returning from MRI right now. family at bedside.
[2023-10-02] MEDS: Doxycycline Hyclate 100 MG in 0.9 % Sodium Chloride 250 ML 166.67 MG IV (20:21)
[2023-10-02] MEDS: Docusate Sodium 100 MG/10 ML LIQUID PO (20:22)
--- NOTE | 2023-10-02 23:24 | PC.NURSE ---
pt continues to rest comfortably on the stretcher in no apparent distress, pt somnolent, does not answer questions, family has been at bedside throughout shift. D5/NS running at 80ml/hr. pt on cardiac exercise physiologist, rectal probe in place. waiting for bed assignment on floor. call ortega within reach, plan of care ongoing.
[2023-10-03] VITALS (9 sets, daily range): BP systolic 149–188; BP diastolic 67–89; PULSE 57–90; RESP 17–26; TEMP -12–38; O2SAT 93–99
[2023-10-03 06:21] LABS: Hematocrit 36.4 % (37.0-47.0); Hemoglobin 11.9 g/dl (12.0-16.0); Mean Corpuscular HGB Conc 32.7 g/dl (31.0-35.0); Mean Corpuscular Hemoglobin 27.9 pg (27.0-33.0); Mean Corpuscular Volume 85.4 fL (80.0-98.0); Mean Platelet Volume 10.3 fL (9.4-12.3); Platelet Count 207 X10*3/uL (160-400); Red Blood Count 4.26 X10*6/uL (4.20-5.50); Red Cell Distribution Width 14.2 % (11.0-16.0); White Blood Count 7.4 X10*3/uL (4.8-10.8)
[2023-10-03 06:27] LABS: INTERNATIONAL NORM RATIO 1.2 (0.9-1.1); Prothrombin Time 14.3 SEC (11.1-13.3)
[2023-10-03] MEDS: Enoxaparin Sodium 80 MG/0.8 ML SYRINGE 70 MG SUBCUT ×2 (08:15→22:01)
[2023-10-03] MEDS: Doxycycline Hyclate 100 MG in 0.9 % Sodium Chloride 250 ML 166.67 MG IV ×2 (08:15→18:25)
--- NOTE | 2023-10-03 08:45 | MHC.CM.PN ---
Addendum entered by Emerald Bar 10/03/23 08:55: Patient is also active with [facility]. Original Note: Patient is documented to have worsening Encephalopathy; CM spoke with Primary Contact/Daughter/Alternate HCP/Jessie @ [phone] and addressed IMM with her (original will be mailed certified letter to Daughter and a copy has been placed on the chart). 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 CM has initiated and will follow for dc planning. PCP/BELLMAN DRIVER is Neto Aguirre in [place].
--- NOTE | 2023-10-03 10:22 | HO.PM.IMPN ---
Subjective Subjective Date of Service: 10/03/23 Interval History: Follow up seizure, worsening encephalopathy more awake today Review of Systems Review of Systems: Yes all other systems are reviewed and are negative Physical Exam Vital Signs: Vital Signs: Last Vital Signs Temp 97.7 F 10/03/23 07:59 Pulse 68 10/03/23 07:59 Resp 17 10/03/23 07:59 BP 167/79 H 10/03/23 07:59 Pulse Ox 99 10/03/23 07:59 O2 Del Method Room Air 10/03/23 07:59 BMI result Body Mass Index 25.3 Appearing in no acute distress, severe torticollis lung sounds are clear to auscultation heart regular rate rhythm, clear S1, S2 positive bowel sounds, abdomen is soft, nontender neuro patient is alert, some verbal Objective Data Active Medications Acetaminophen (Acetaminophen Oral Liquid 650 Mg/20.3 Ml Solution) 650 mg PO Q6H PRN PRN Reason: Pain, Mild (Pain Scale 1-3), fever or headache Acetaminophen (Acetaminophen Supp 650 Mg Supp.Rect) 650 mg [place] Q6H PRN PRN Reason: Fever Last Admin: 10/02/23 17:32 Dose: 650 mg Documented By: KLEBER Albuterol Sulfate (Albuterol Sulfate 90 Mcg 8 Gm Inhaler) 2 puff INHALE Q6H PRN PRN Reason: Shortness of Breath Atorvastatin Calcium (Atorvastatin Calcium 40 Mg Tablet) 40 mg PO DAILY [facility] Last Admin: 10/03/23 08:11 Dose: Not Given Documented By: NAOMI Non-Admin Reason: NPO Docusate Sodium (Docusate Sodium 100 Mg/10 Ml Liquid) 100 mg PO BEDTIME [facility] Last Admin: 10/02/23 20:22 Dose: 100 mg Documented By: BRANDON Enoxaparin Sodium (Enoxaparin Sodium 80 Mg/0.8 Ml Syringe) 70 mg 1 mg/kg (70 mg) SUBCUT Q12H [facility] Last Admin: 10/03/23 08:15 Dose: 70 mg Documented By: NAOMI Hydralazine HCl (Hydralazine Hcl 20 Mg/Ml Vial) 5 mg IVPUSH Q4H PRN; Protocol PRN Reason: SBP>180 Levetiracetam (Keppra) 1,000 mg in 100 mls @ 400 mls/hr IV Q12H [facility] Last Infusion: 10/02/23 20:50 Dose: Infused Documented By: ЮЛИЯ Dextrose/Sodium Chloride (D5ns) 1,000 mls @ 80 mls/hr IVCONT .[id number] [facility] Last Admin: 10/02/23 23:13 Dose: 80 mls/hr Documented By: ЮЛИЯ Ceftriaxone Sodium 1 gm/ (Sodium Chloride) 50 mls @ 100 mls/hr IV Q24H [facility] Last Infusion: 10/02/23 14:30 Dose: Infused Documented By: KLEBER Doxycycline Hyclate 100 mg/ (Sodium Chloride) 250 mls @ 166.67 mls/hr IV Q12H [facility] Last Admin: 10/03/23 08:15 Dose: 166.67 mls/hr Documented By: NAOMI Magnesium Hydroxide (Milk Of Magnesia 30 Ml Oral.Susp) 30 ml PO DAILY PRN PRN Reason: Constipation Multivitamins/Vitamin C (Multivitamin Tablet) 1 tab PO DAILY [facility] Last Admin: 10/03/23 08:12 Dose: Not Given Documented By: NAOMI Non-Admin Reason: NPO Ondansetron HCl (Ondansetron Hcl 4 Mg/2 Ml Vial) 4 mg IVPUSH Q8H PRN PRN Reason: Nausea and Vomiting Rivaroxaban (Rivaroxaban 20 Mg Tablet) 20 mg PO DAILY [facility] Last Admin: 10/02/23 07:56 Dose: Not Given Documented By: KLEBER Non-Admin Reason: NPO Sodium Chloride (0.9 % Sodium Chloride Flush 3 Ml Syringe) 3 ml IVFLUSH QSHIFT [facility] Last Admin: 10/03/23 08:15 Dose: Not Given Documented By: NAOMI Non-Admin Reason: IV Running Vitamin D (Cholecalciferol (Vitamin D3) 25 Mcg Tablet) 50 mcg PO DAILY [facility] Last Admin: 10/03/23 08:12 Dose: Not Given Documented By: NAOMI Non-Admin Reason: NPO Labs 10/03/23 06:02 10/02/23 05:19 Labs: Laboratory Results - last 24 hr 10/01/23 10/02/23 10/02/23 14:52 10:28 13:22 MCV 85.6 MCH 27.8 MCHC 32.5 RDW 14.1 Plt Count 280 MPV 10.4 Absolute Nucleated RBC 0.000 Nucleated RBC % (auto) 0.0 PT 18.9 H Whole Blood PT 17.3 H INR 1.6 H Whole Blood INR 1.4 H APTT 31.9 POC Glucose 113 10/03/23 06:02 MCV 85.4 MCH 27.9 MCHC 32.7 RDW 14.2 Plt Count 207 D MPV 10.3 Absolute Nucleated RBC 0.000 Nucleated RBC % (auto) 0.0 PT 14.3 H D Whole Blood PT INR 1.2 H Whole Blood INR APTT POC Glucose Microbiology Microbiology Results: Microbiology 10/02/23 Unknown Urine Culture - Preliminary Urine Catheterized - Straight Catheter Gram negative lilian Assessment and Plan (1) Acute left-sided weakness: Status: Acute Plan 68yo F with 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 Notably she did miss last night's dose of her antiepileptic. She is not a TNK candidate due to being on Xarelto and there is no LVO on CTA. GNR UTI possible source of initial symptoms continue rocephin fevers overnight have resolved after starting doxycycline follow final cx Left sided weakness. Resolved hx of epilepsy and CVA Head and neck CTA/CT neg for bleed or acute infarction MRI brain neg for acute infarction npo with IV fluids pending speech therapy eval Neuro consultation> rec EEG epilepsy continue IV Keppra for now HTN restart amlodipine + lisinopril, pt more awake IV hydralazine for SBP>180 hx DVT change Xarelto to therapeutic lovenox due to poor swallowing DVT prophylaxis with lovenox attending Dr. Puente DNR Quality Stroke Does the patient have a stroke diagnosis?: Yes Reason for No Anti-thrombotic by Day Two: N/A - Med Ordered VTE Prior VTE?: Yes VTE Risk Level:: Medical - moderate - high VTE Device Contraindication: N/A - Device Ordered VTE Drug Contraindication: N/A - Med Ordered
[2023-10-03] MEDS: levETIRAcetam in NaCl (iso-os) 1,000 MG/100 ML PIGGYBACK 400 MG IV ×2 (10:24→22:00)
--- NOTE | 2023-10-03 11:18 | MHC.SL.SWA ---
Speech Pathologist Impression: Risk of Aspiration Due to: Neurological Condition Reduced Cognition Weak Cough Weak Voice Dysphasia Diet Status: Liquid Consistency and Strategies for Safe Swallow: Liquid Intake Recommendation: Thin Liquid Intake Strategies: Unrestricted Solid Food Consistency: Dietary Recommendations: Chopped/Advanced (NDD3) Additional Modifications to Solid Foods: Assure that patient is comfortably seated with head of bed elevated >70 Degrees. Patient requires 1-1 feeding, provide small bites and sips, and alternate liquids and solids. Place towel on patient to catch any drops or spills. Oral Medication Intake: Whole with Liquid Please contact the pharmacy regarding appropriate crushable or liquid drug formulations that are available whenever modified delivery is recommended. Compensatory Strategies and Precautions to be Taken for Safe Swallow: Sitting Upright (90 deg) Supervision While Eating and Drinking for Safe Swallow: PO with ENVIRONMENTAL ENGINEERING PROFESSOR Foods to Avoid: Hard, dry or difficult to chew solids, too large pieces of food. Swallowing Recommended Treatments: Compens. Strategy Educat. Recommendation for Speech: Inpatient Speech Therapy Comment: Recommend START diet of GROUND/MECH ALTERED SOLIDS with THIN LIQUIDS. MEDS CRUSHED with PUREE. 1:1 FEEDING. ENVIRONMENTAL ENGINEERING PROFESSOR will follow to re-assess potential for upgrade. Frequency/Duration: Daily Date Range for Service Req: Admission Timeline to reassess: PRN Special Procedures Technologist Clinican/Clinical Fellow: Supervisory Statement: I have reviewed and agree with the student/clinical fellow's documentation: Speech Language Pathologist:
[2023-10-03] MEDS: lisinopriL 20 MG TABLET PO (11:35)
[2023-10-03] MEDS: amLODIPine Besylate 5 MG TABLET PO (11:35)
[2023-10-03] MEDS: cefTRIAXone sodium 1 GM in 0.9 % Sodium Chloride 50 ML IV (12:35)
[2023-10-03] MEDS: Dextrose 5 % and 0.9 % NaCl 1,000 ML 80 ML IVCONT (12:36)
[2023-10-03] MEDS: Acetaminophen Oral Liquid 650 MG/20.3 ML SOLUTION PO (21:59)
[2023-10-03] MEDS: 0.9 % Sodium Chloride Flush 3 ML SYRINGE IVFLUSH (22:01)
[2023-10-04] VITALS (7 sets, daily range): BP systolic 138–178; BP diastolic 68–83; PULSE 63–73; RESP 18–20; TEMP 36.4–36.8; O2SAT 95–99
--- NOTE | 2023-10-04 07:53 | PM.DS ---
DS: Providers Provider Date of Service: 10/04/23 Date of admission: 10/01/23 18:46 Primary care physician: Unknown Physician Consults: 10/01/23 18:16 Consult to Neurology Routine Consulting Provider: [facility] Reason for consultation: weakness- Jeremy's paralysis? DS: Diagnosis Discharge Diagnosis (1) Acute left-sided weakness: Status: Acute DS: Summary Hospital Course Hospital Course: History and physical as per admitting provider. 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 Also hx of DVT for which she is on Xarelto, and hx of CVA for which she is on ASA. History per pt's daughter who is her HCP and lives downstairs from her. The pt's noted the patient became lethargic and then developed L-sided facial droop and L-sided weakness around 13:30. Last known well time was 12:45. She was more shaky then usual but no clear seizure. She is R-handed. She also has severe torticollis. She missed her nighttime doses of medications last night including Keppra. Given Xarelto use, she was not a TNK candidate. She was noted to be hypertensive at 193/94. CT did not show any acute ICH and CTA did not show any LVO. The ED physician noted flaccid paralysis on the pt's left but it seems more spastic to me at this time. She is somonolent but arousable, responding in her navajo language Georgian to her family but then subsequently going back to sleep. 68-year-old woman admitted with encephalopathy and left-sided weakness initially. Head and neck CTA and CT were negative for bleed or acute infarction, MRI negative for infarction. Patient was seen by Neurology recommended EEG however due to patient's severe torticollis she was unable to have the EEG completed. Neurology stated that symptoms are likely related to affects of radiation as this can happen even decades after treatment. He discussed this in length with the patient's family and they stated understanding. Within 24 hours patient was much more awake and communicating at her baseline as per . She had ran fevers for 24 hours and was found to have a UTI with cultures coming back for E coli which has been pretty consistent for her. Discussed with patient's family regarding following up with Urology for frequent urinary tract infections. Patient was treated with IV Rocephin. Has a history of epilepsy and had initially been on IV Keppra but can continue her oral Keppra home. Blood pressures were high initially and because she was encephalopathic she was placed on IV hydralazine but as she became more awake her home amlodipine and lisinopril were restarted. Also because of her encephalopathy her Xarelto was switched to therapeutic Lovenox but she can now continue her Xarelto for history of DVT. At this point patient is going to be discharged to [facility] and family is in agreement of this Epilepsy Continue Keppra 1000 mg b.i.d. HTN Stable blood pressure Amlodipine and lisinopril hx DVT On Xarelto Time Attestation Discharge Coordination Time (in mins): 35 Quality: Safe Use of Opioids Does Pt have an Active Cancer Diagnosis on the Problem List?: No Quality: Stroke Does the patient have a stroke diagnosis?: No Physical Exam Vital Signs: Vital Signs: Last Vital Signs Temp 97.6 F 10/04/23 03:28 Pulse 63 10/04/23 03:28 Resp 18 10/04/23 03:28 BP 138/69 10/04/23 03:28 Pulse Ox 98 10/04/23 03:28 O2 Del Method Room Air 10/04/23 03:28 BMI result Body Mass Index 25.3 Appearing in no acute distress head is normocephalic atraumatic eyes pupils are PERRLA sclera is anicteric mouth throat mucous membranes are intact and moist neck is supple no lymphadenopathy, no JVD noted lung sounds are clear to auscultation heart regular rate rhythm, clear S1, S2 positive bowel sounds, abdomen is soft, nontender neuro patient is alert, mostly nonverbal Severe torticollis DS: Data Data Completed and Pending Completed studies during hospitalization [Text1]: Procedures Drainage of Spinal Canal, Percutaneous Approach, Diagnostic (08/19/23) Insertion of Endotracheal Airway into Trachea, Via Natural or Artificial Opening (12/20/21) Insertion of Infusion Device into Superior Vena Cava, Percutaneous Approach (12/20/21) Insertion of Monitoring Device into Lower Artery, Percutaneous Approach (12/20/21) Introduction of Vasopressor into Peripheral Vein, Percutaneous Approach (12/20/21) Monitoring of Arterial Pressure, Peripheral, Percutaneous Approach (12/20/21) Monitoring of Arterial Pulse, Peripheral, Percutaneous Approach (12/20/21) Respiratory Ventilation, Greater than 96 Consecutive Hours (12/20/21) Ultrasonography of Superior Vena Cava, Guidance (12/20/21) Labs on day of discharge: Preliminary micro results at discharge 10/02/23 15:43 Blood Culture - Preliminary Blood - Venous No growth after 24 hours. 10/02/23 15:43 Blood Culture - Preliminary Blood - Venous No growth after 24 hours. Discharge Plan Discharge Anticipated Discharge Date/Time: 10/09/23 11:24 Patient Disposition: er [facility] Discharge Diagnosis: E coli UTI Weakness Referrals: [facility] [Other] - 1 Week Joya Salmon MD [Physician] - 1 Week (Follow up for frequent UTIs) Discharge Medications: Continued (DME) miscellaneous medical supply Misc See Rx Instructions .ROUTE .MEDSUPPLY Qty: 240 6RF Rx Instructions: Disposable Diaper-PullUps. size large 8x daily As directed, 30 day supply atorvastatin 40 mg tablet 40 mg PO DAILY Qty: 90 1RF aspirin 81 mg tablet,delayed release (DR/EC) 81 mg PO DAILY Qty: 90 1RF amlodipine 5 mg tablet 5 mg PO DAILY 90 Days Qty: 90 1RF Xarelto 20 mg tablet 20 mg PO DAILY 30 Days Qty: 30 3RF Rx Instructions: must administer with evening meal albuterol sulfate [Ventolin HFA] 90 mcg/actuation HFA aerosol inhaler 2 puff INHALATION Q6H PRN (Reason: SOB) lisinopril 20 mg Tablet 20 mg PO DAILY Qty: 90 0RF Protocol: Hold for SBP< HOLD for SBP < : 90 multivitamin Tablet 1 tab PO DAILY levetiracetam 100 mg/mL solution 1,000 mg PO BID cholecalciferol (vitamin D3) 50 mcg (2,000 unit) tablet 50 mcg PO DAILY 90 Days Qty: 90 1RF docusate sodium 100 mg capsule 100 mg PO BEDTIME Qty: 90 3RF Discharge Orders: Discharge Order (Routine); Ordered 10/09/23 Ordered By: Letha Olea Diet: Advance to usual diet Activity on Discharge: As tolerated Stand Alone Forms: Patient Portal Discharge page Print Language: Luxembourgish Care Plan Goals: Follow-up with urology for frequent urinary tract infections Health Concerns: E coli UTI Weakness Plan of Treatment: Follow-up with primary care provider as needed Take all medications as prescribed Assessment: See discharge summary
[2023-10-04] MEDS: levETIRAcetam in NaCl (iso-os) 1,000 MG/100 ML PIGGYBACK 400 MG IV ×2 (09:11→22:00)
[2023-10-04] MEDS: Atorvastatin Calcium 40 MG TABLET PO (09:12)
[2023-10-04] MEDS: Cholecalciferol (Vitamin D3) 25 MCG TABLET 50 MCG PO (09:12)
[2023-10-04] MEDS: lisinopriL 20 MG TABLET PO (09:12)
[2023-10-04] MEDS: Rivaroxaban 20 MG TABLET PO (09:12)
[2023-10-04] MEDS: Multivitamin TABLET 1 TAB PO (09:12)
[2023-10-04] MEDS: Enoxaparin Sodium 80 MG/0.8 ML SYRINGE 70 MG SUBCUT ×2 (09:13→23:37)
[2023-10-04] MEDS: 0.9 % Sodium Chloride Flush 3 ML SYRINGE IVFLUSH (09:13)
[2023-10-04] MEDS: amLODIPine Besylate 5 MG TABLET PO (09:13)
[2023-10-04] MEDS: cefTRIAXone sodium 1 GM in 0.9 % Sodium Chloride 50 ML IV (12:11)
--- NOTE | 2023-10-04 12:29 | HO.PM.IMPN ---
Subjective Subjective Date of Service: 10/04/23 Interval History: Follow up seizure, worsening encephalopathy more awake today still with left side paralysis Review of Systems Review of Systems: Yes all other systems are reviewed and are negative Physical Exam Vital Signs: Vital Signs: Last Vital Signs Temp 97.8 F 10/04/23 11:42 Pulse 69 10/04/23 11:42 Resp 18 10/04/23 11:42 BP 155/76 H 10/04/23 11:42 Pulse Ox 95 10/04/23 11:42 O2 Del Method Room Air 10/04/23 11:42 BMI result Body Mass Index 25.3 Appearing in no acute distress lung sounds are clear to auscultation heart regular rate rhythm, clear S1, S2 positive bowel sounds, abdomen is soft, nontender neuro patient is alert, mostly non verbal Objective Data Active Medications Acetaminophen (Acetaminophen Oral Liquid 650 Mg/20.3 Ml Solution) 650 mg PO Q6H PRN PRN Reason: Pain, Mild (Pain Scale 1-3), fever or headache Last Admin: 10/03/23 21:59 Dose: 650 mg Documented By: ZONIA Acetaminophen (Acetaminophen Supp 650 Mg Supp.Rect) 650 mg [place] Q6H PRN PRN Reason: Fever Last Admin: 10/02/23 17:32 Dose: 650 mg Documented By: KLEBER Albuterol Sulfate (Albuterol Sulfate 90 Mcg 8 Gm Inhaler) 2 puff INHALE Q6H PRN PRN Reason: Shortness of Breath Amlodipine Besylate (Amlodipine Besylate 5 Mg Tablet) 5 mg PO DAILY [facility]; Protocol Last Admin: 10/04/23 09:13 Dose: 5 mg Documented By: STACEY Atorvastatin Calcium (Atorvastatin Calcium 40 Mg Tablet) 40 mg PO DAILY [facility] Last Admin: 10/04/23 09:12 Dose: 40 mg Documented By: STACEY Docusate Sodium (Docusate Sodium 100 Mg/10 Ml Liquid) 100 mg PO BEDTIME [facility] Last Admin: 10/03/23 22:01 Dose: Not Given Documented By: ZONIA Non-Admin Reason: declined Enoxaparin Sodium (Enoxaparin Sodium 80 Mg/0.8 Ml Syringe) 70 mg 1 mg/kg (70 mg) SUBCUT Q12H [facility] Last Admin: 10/04/23 09:13 Dose: 70 mg Documented By: STACEY Hydralazine HCl (Hydralazine Hcl 20 Mg/Ml Vial) 5 mg IVPUSH Q4H PRN; Protocol PRN Reason: SBP>180 Levetiracetam (Keppra) 1,000 mg in 100 mls @ 400 mls/hr IV Q12H [facility] Last Infusion: 10/04/23 10:12 Dose: Infused Documented By: STACEY Ceftriaxone Sodium 1 gm/ (Sodium Chloride) 50 mls @ 100 mls/hr IV Q24H [facility] Last Admin: 10/04/23 12:11 Dose: 100 mls/hr Documented By: STACEY Lisinopril (Lisinopril 20 Mg Tablet) 20 mg PO DAILY [facility]; Protocol Last Admin: 10/04/23 09:12 Dose: 20 mg Documented By: STACEY Magnesium Hydroxide (Milk Of Magnesia 30 Ml Oral.Susp) 30 ml PO DAILY PRN PRN Reason: Constipation Multivitamins/Vitamin C (Multivitamin Tablet) 1 tab PO DAILY [facility] Last Admin: 10/04/23 09:12 Dose: 1 tab Documented By: STACEY Ondansetron HCl (Ondansetron Hcl 4 Mg/2 Ml Vial) 4 mg IVPUSH Q8H PRN PRN Reason: Nausea and Vomiting Rivaroxaban (Rivaroxaban 20 Mg Tablet) 20 mg PO DAILY [facility] Last Admin: 10/04/23 09:12 Dose: 20 mg Documented By: STACEY Sodium Chloride (0.9 % Sodium Chloride Flush 3 Ml Syringe) 3 ml IVFLUSH QSHIFT [facility] Last Admin: 10/04/23 09:13 Dose: 3 ml Documented By: STACEY Vitamin D (Cholecalciferol (Vitamin D3) 25 Mcg Tablet) 50 mcg PO DAILY [facility] Last Admin: 10/04/23 09:12 Dose: 50 mcg Documented By: STACEY Labs 10/03/23 06:02 10/02/23 05:19 Microbiology Microbiology Results: Microbiology 10/02/23 Unknown Urine Culture - Final Urine Catheterized - Straight Catheter Escherichia coli 10/02/23 15:43 Blood Culture - Preliminary Blood - Venous No growth after 24 hours. 10/02/23 15:43 Blood Culture - Preliminary Blood - Venous No growth after 24 hours. 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 Notably she did miss last night's dose of her antiepileptic. She is not a TNK candidate due to being on Xarelto and there is no LVO on CTA. E coli UTI continue rocephin Left sided weakness. hx of epilepsy Head and neck CTA/CT neg for bleed or acute infarction MRI brain neg for acute infarction Neuro consultation> unable to do EEG do to anatomy from severe torticollis, feels symptoms of left-sided weakness are secondary to radiation effects Epilepsy Continue Keppra 1000 mg b.i.d. HTN Stable blood pressure Amlodipine and lisinopril IV hydralazine for SBP>180 hx DVT On Xarelto DVT prophylaxis with Xarelto attending Dr. Puente DNR Quality Stroke Does the patient have a stroke diagnosis?: Yes Reason for No Anti-thrombotic by Day Two: N/A - Med Ordered VTE Prior VTE?: Yes VTE Risk Level:: Medical - moderate - high VTE Device Contraindication: N/A - Device Ordered VTE Drug Contraindication: N/A - Med Ordered
--- NOTE | 2023-10-04 12:54 | MHC.CM.PN ---
PT is recommending STR; family's goal is home with 24/7 care. CM will follow.
--- NOTE | 2023-10-04 13:31 | MHC.SL.SWA ---
Risk of Aspiration Due to: Neurological Condition Reduced Cognition Weak Cough Weak Voice Dysphasia Diet Status: UPGRADE solids Liquid Consistency and Strategies for Safe Swallow: Liquid Intake Recommendation: Thin Liquid Intake Strategies: Unrestricted Solid Food Consistency: Dietary Recommendations: Regular Oral Medication Intake: Crushed with Puree Please contact the pharmacy regarding appropriate crushable or liquid drug formulations that are available whenever modified delivery is recommended. Compensatory Strategies and Precautions to be Taken for Safe Swallow: Sitting Upright (90 deg) Supervision While Eating and Drinking for Safe Swallow: Total Assistance (1:1) Foods to Avoid: Hard, dry or difficult to chew solids, too large pieces of food. Swallowing Recommended Treatments: Compens. Strategy Educat. Recommendation for Speech: Inpatient Speech Therapy Comment: Recommend UPGRADE to CHOPPED/ADVANCED solids (NDD3). Continue w/ thin liquids and pills crushed in puree. Pt requires intermittent assistance throughout meals; encourage to bring food to mouth independently. Assure that patient is comfortably seated with head of bed elevated >70 Degrees. Patient requires 1-1 feeding, provide small bites and sips, and alternate liquids and solids. Place towel on patient to catch any drops or spills. Pressing Machine Tender Clinican/Clinical Fellow: No Supervisory Statement: I have reviewed and agree with the student/clinical fellow's documentation: N/A Speech Language Pathologist: Nani Mckeon M.A., CCC-MANAGER DISH
--- NOTE | 2023-10-04 15:29 | MHC.CM.PN ---
Addendum entered by Emerald Bar 10/04/23 15:32: [facility] transport auth # is [id number]. Original Note: Per TRUST VAULT CUSTODIAN/Letha, Patient will be medically cleared for dc to home tomorrow with services. Patient is active with [facility], who has been notified of tomorrow's dc. Last Imm addressed . CM spoke with Daughter/HCP/Jessie at [phone] and informed her of the dc plan. Patient will return home tomorrow at 11:30 PM, via [facility].
[2023-10-04] MEDS: levETIRAcetam 1,000 MG TABLET 1000 MG PO (23:41)
[2023-10-05] VITALS (7 sets, daily range): BP systolic 137–179; BP diastolic 64–79; PULSE 54–71; RESP 18–21; TEMP 36.4–37.1; O2SAT 97–100
[2023-10-05] MEDS: 0.9 % Sodium Chloride Flush 3 ML SYRINGE IVFLUSH ×3 (00:04→16:50)
[2023-10-05] MEDS: Cholecalciferol (Vitamin D3) 25 MCG TABLET 50 MCG PO (08:34)
[2023-10-05] MEDS: Atorvastatin Calcium 40 MG TABLET PO (08:34)
[2023-10-05] MEDS: Rivaroxaban 20 MG TABLET PO (08:34)
[2023-10-05] MEDS: levETIRAcetam Oral Soln 500 MG/5 ML 1000 MG PO ×2 (08:34→22:13)
[2023-10-05] MEDS: Multivitamin TABLET 1 TAB PO (08:35)
[2023-10-05] MEDS: amLODIPine Besylate 5 MG TABLET PO (08:37)
[2023-10-05] MEDS: lisinopriL 20 MG TABLET PO (08:37)
[2023-10-05] MEDS: cefTRIAXone sodium 1 GM in 0.9 % Sodium Chloride 50 ML IV (12:32)
--- NOTE | 2023-10-05 15:39 | MHC.SL.SWA ---
Speech Pathologist Impression: Risk of Aspiration Due to: Neurological Condition Reduced Cognition Weak Cough Weak Voice Dysphasia Diet Status: Continue on CHOPPED/ADVANCED solids (NDD3) w/ thin liquids and pills crushed in puree. Pt requires assistance throughout meals; assure patient is seated and positioned well. Provide liquids by straw sip. Liquid Consistency and Strategies for Safe Swallow: Liquid Intake Recommendation: Thin Liquid Intake Strategies: Small Sips Solid Food Consistency: Dietary Recommendations: Chopped/Advanced (NDD3) Additional Modifications to Solid Foods: Assure that patient is comfortably seated with head of bed elevated >70 Degrees. Patient requires 1-1 feeding, provide small bites and sips, and alternate liquids and solids. Place towel on patient to catch any drops or spills. Oral Medication Intake: Crushed with Puree Please contact the pharmacy regarding appropriate crushable or liquid drug formulations that are available whenever modified delivery is recommended. Compensatory Strategies and Precautions to be Taken for Safe Swallow: Sitting Upright (90 deg) Liquids from Straw Small Bites and Sips Alternate Liquids/Solids Rate of Ingestion Change Supervision While Eating and Drinking for Safe Swallow: Total Assistance (1:1) Foods to Avoid: Hard, dry or difficult to chew solids, too large pieces of food. Swallowing Recommended Treatments: Compens. Strategy Educat. Recommendation for Speech: Inpatient Speech Therapy Comment: Pt seen at breakfast, with daughter feeding her eggs, farina, coffee and juices. Patient's head position is down and to the right due chronically (unable to lift head), making positioning at this point the greatest issue with feeding. Patient observed asking for and sipping coffee with straw, which is how she manages liquids at baseline, evidencing good management and timely swallow of liquids when delivered in this manner. Patient also observed being fed bites of egg, able to chew, propel and swallow in a timely manner. Patient is tolerating current diet of Chopped/Advanced (NDD3) with thin liquids well, when given assistance and appropriate accommodations (e.g. drinking with straw). Recommend continue on these diet consistencies. Frequency/Duration: Daily Date Range for Service Req: Admission Timeline to reassess: PRN [employer] Clinican/Clinical Fellow: No Supervisory Statement: I have reviewed and agree with the student/clinical fellow's documentation: N/A Speech Language Pathologist: Arminda Corbett M.A., CCC-PLANT CONTROLS SPECIALIST
--- NOTE | 2023-10-05 16:19 | P.PNIM_ITS ---
Subjective Subjective Date of Service: 10/05/23 Interval History: Seen and examined this morning Follow-up For left-sided weakness No overnight events. Left-sided strength appears to be improving Initially planned to return home this morning however family has changed their mind and opted for short-term rehab Review of Systems Review of Systems: Yes all other systems are reviewed and are negative Constitutional Constitutional: Denies chills and Denies fever(s) Physical Exam 2 Vital Signs: Vital Signs: Last Vital Signs Temp 97.6 F 10/05/23 15:35 Pulse 65 10/05/23 15:35 Resp 20 10/05/23 15:35 BP 137/64 10/05/23 15:35 Pulse Ox 97 10/05/23 15:35 O2 Del Method Room Air 10/05/23 15:35 BMI result Body Mass Index 25.3 Const: Other: mostly nonverbal General: alert and awake Nutritional Appearance: average body habitus Neck: Other: torticolis neck Resp: Effort & Inspection: normal respiratory effort, no respiratory distress and no use of accessory muscles Cardio: Rate: regular rate GI: Inspection: No distended Palpation (GI): Soft to palpation and nontender Neuro: Other: able to lift left arm and squeeze Objective Data Active Medications Acetaminophen (Acetaminophen Oral Liquid 650 Mg/20.3 Ml Solution) 650 mg PO Q6H PRN PRN Reason: Pain, Mild (Pain Scale 1-3), fever or headache Last Admin: 10/03/23 21:59 Dose: 650 mg Documented By: ZONIA Acetaminophen (Acetaminophen Supp 650 Mg Supp.Rect) 650 mg [place] Q6H PRN PRN Reason: Fever Last Admin: 10/02/23 17:32 Dose: 650 mg Documented By: KLEBER Albuterol Sulfate (Albuterol Sulfate 90 Mcg 8 Gm Inhaler) 2 puff INHALE Q6H PRN PRN Reason: Shortness of Breath Amlodipine Besylate (Amlodipine Besylate 5 Mg Tablet) 5 mg PO DAILY [facility]; Protocol Last Admin: 10/05/23 08:37 Dose: 5 mg Documented By: STACEY Atorvastatin Calcium (Atorvastatin Calcium 40 Mg Tablet) 40 mg PO DAILY [facility] Last Admin: 10/05/23 08:34 Dose: 40 mg Documented By: STACEY Docusate Sodium (Docusate Sodium 100 Mg/10 Ml Liquid) 100 mg PO BEDTIME [facility] Last Admin: 10/04/23 23:39 Dose: Not Given Documented By: ZONIA Non-Admin Reason: patient refused Hydralazine HCl (Hydralazine Hcl 20 Mg/Ml Vial) 5 mg IVPUSH Q4H PRN; Protocol PRN Reason: SBP>180 Ceftriaxone Sodium 1 gm/ (Sodium Chloride) 50 mls @ 100 mls/hr IV Q24H [facility] Last Infusion: 10/05/23 13:25 Dose: Infused Documented By: STACEY Levetiracetam (Levetiracetam Oral Soln 500 Mg/5 Ml) 1,000 mg PO BID [facility] Last Admin: 10/05/23 08:34 Dose: 1,000 mg Documented By: STACEY Lisinopril (Lisinopril 20 Mg Tablet) 20 mg PO DAILY [facility]; Protocol Last Admin: 10/05/23 08:37 Dose: 20 mg Documented By: STACEY Magnesium Hydroxide (Milk Of Magnesia 30 Ml Oral.Susp) 30 ml PO DAILY PRN PRN Reason: Constipation Multivitamins/Vitamin C (Multivitamin Tablet) 1 tab PO DAILY [facility] Last Admin: 10/05/23 08:35 Dose: 1 tab Documented By: STACEY Ondansetron HCl (Ondansetron Hcl 4 Mg/2 Ml Vial) 4 mg IVPUSH Q8H PRN PRN Reason: Nausea and Vomiting Rivaroxaban (Rivaroxaban 20 Mg Tablet) 20 mg PO DAILY [facility] Last Admin: 10/05/23 08:34 Dose: 20 mg Documented By: STACEY Sodium Chloride (0.9 % Sodium Chloride Flush 3 Ml Syringe) 3 ml IVFLUSH QSHIFT [facility] Last Admin: 10/05/23 08:35 Dose: 3 ml Documented By: STACEY Vitamin D (Cholecalciferol (Vitamin D3) 25 Mcg Tablet) 50 mcg PO DAILY [facility] Last Admin: 10/05/23 08:34 Dose: 50 mcg Documented By: STACEY Labs 10/03/23 06:02 10/02/23 05:19 Microbiology Microbiology Results: Microbiology 10/02/23 15:43 Blood Culture - Preliminary Blood - Venous No growth after 48 hours. 10/02/23 15:43 Blood Culture - Preliminary Blood - Venous No growth after 48 hours. 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 Notably she did miss last night's dose of her antiepileptic. She is not a TNK candidate due to being on Xarelto and there is no LVO on CTA. E coli UTI continue rocephin, started 10/01 Blood cultures negative to date Left sided weakness. hx of epilepsy Head and neck CTA/CT neg for bleed or acute infarction MRI brain neg for acute infarction Neuro consultation> unable to do EEG due to anatomy from severe torticollis, feels symptoms of left-sided weakness are secondary to radiation effects weakness improving PT rec STR Epilepsy Continue Keppra 1000 mg b.i.d. HTN Stable blood pressure Amlodipine and lisinopril IV hydralazine for SBP>180 hx DVT On Xarelto DVT prophylaxis with Xarelto attending Dr. Puente DNR awaiting STR bed Quality Stroke Does the patient have a stroke diagnosis?: Yes Reason for No Anti-thrombotic by Day Two: N/A - Med Ordered VTE Prior VTE?: Yes VTE Risk Level:: Medical - moderate - high VTE Device Contraindication: N/A - Device Ordered VTE Drug Contraindication: N/A - Med Ordered
[2023-10-05] MEDS: Docusate Sodium 100 MG/10 ML LIQUID PO (22:13)
[2023-10-06] VITALS (7 sets, daily range): BP systolic 144–182; BP diastolic 60–86; PULSE 64–73; RESP 18–22; TEMP 36.1–36.8; O2SAT 91–98
[2023-10-06] MEDS: 0.9 % Sodium Chloride Flush 3 ML SYRINGE IVFLUSH ×4 (00:46→20:48)
[2023-10-06] MEDS: amLODIPine Besylate 5 MG TABLET PO (08:53)
[2023-10-06] MEDS: Multivitamin TABLET 1 TAB PO (08:53)
[2023-10-06] MEDS: lisinopriL 20 MG TABLET PO (08:53)
[2023-10-06] MEDS: Rivaroxaban 20 MG TABLET PO (08:53)
[2023-10-06] MEDS: levETIRAcetam Oral Soln 500 MG/5 ML 1000 MG PO ×2 (08:53→20:47)
[2023-10-06] MEDS: Atorvastatin Calcium 40 MG TABLET PO (08:53)
[2023-10-06] MEDS: Cholecalciferol (Vitamin D3) 25 MCG TABLET 50 MCG PO (08:53)
--- NOTE | 2023-10-06 10:37 | MHC.CM.PN ---
The dc plan has changed. Patient has been accepted at the first choice SNF[facility] for STR, who is initiating CCA today. CM will follow.
[2023-10-06 12:09] LABS: Anion Gap 10 (12-20); Blood Urea Nitrogen 8 mg/dL (9-16); Calcium 8.7 mg/dL (8.4-10.2); Carbon Dioxide 29 mmol/L (22-29); Chloride 109 mmol/L (96-108); Creatinine Clr Calc Pharmacy 78.2; Estimated Glomerular Filt Rate > 60; Glucose Random 149 mg/dL (60-115); Potassium 3.3 mmol/L (3.3-5.1); Sodium 145 mmol/L (135-145)
[2023-10-06] MEDS: cefTRIAXone sodium 1 GM in 0.9 % Sodium Chloride 50 ML IV (12:59)
--- NOTE | 2023-10-06 14:33 | P.PNIM_ITS ---
Subjective Subjective Date of Service: 10/06/23 Interval History: seen and examined this morning follow up for left arm weakness patient awake alert, able to lift left arm and squeeze Did not sleep well overnight Review of Systems Review of Systems: Yes all other systems are reviewed and are negative Constitutional Constitutional: Denies fever(s) Cardiovascular Cardiovascular: Denies chest pain Gastrointestinal Gastrointestinal: Denies abdominal pain Physical Exam 2 Vital Signs: Vital Signs: Last Vital Signs Temp 97.1 F 10/06/23 11:20 Pulse 64 10/06/23 11:20 Resp 20 10/06/23 11:20 BP 144/68 H 10/06/23 11:20 Pulse Ox 97 10/06/23 11:20 O2 Del Method Room Air 10/06/23 11:20 BMI result Body Mass Index 25.3 Const: Other: mostly nonverbal General: alert and awake Nutritional Appearance: average body habitus Neck: Other: torticolis neck Resp: Effort & Inspection: normal respiratory effort, no respiratory distress and no use of accessory muscles Cardio: Rate: regular rate GI: Inspection: No distended Palpation (GI): Soft to palpation and nontender Neuro: Other: able to lift left arm and squeeze Objective Data Active Medications Acetaminophen (Acetaminophen Oral Liquid 650 Mg/20.3 Ml Solution) 650 mg PO Q6H PRN PRN Reason: Pain, Mild (Pain Scale 1-3), fever or headache Last Admin: 10/03/23 21:59 Dose: 650 mg Documented By: ZONIA Acetaminophen (Acetaminophen Supp 650 Mg Supp.Rect) 650 mg [place] Q6H PRN PRN Reason: Fever Last Admin: 10/02/23 17:32 Dose: 650 mg Documented By: KLEBER Albuterol Sulfate (Albuterol Sulfate 90 Mcg 8 Gm Inhaler) 2 puff INHALE Q6H PRN PRN Reason: Shortness of Breath Amlodipine Besylate (Amlodipine Besylate 5 Mg Tablet) 5 mg PO DAILY [facility]; Protocol Last Admin: 10/06/23 08:53 Dose: 5 mg Documented By: REESE Atorvastatin Calcium (Atorvastatin Calcium 40 Mg Tablet) 40 mg PO DAILY [facility] Last Admin: 10/06/23 08:53 Dose: 40 mg Documented By: REESE Docusate Sodium (Docusate Sodium 100 Mg/10 Ml Liquid) 100 mg PO BEDTIME [facility] Last Admin: 08/15/24 22:13 Dose: 100 mg Documented By: ALLAN Hydralazine HCl (Hydralazine Hcl 20 Mg/Ml Vial) 5 mg IVPUSH Q4H PRN; Protocol PRN Reason: SBP>180 Ceftriaxone Sodium 1 gm/ (Sodium Chloride) 50 mls @ 100 mls/hr IV Q24H [facility] Last Infusion: 10/06/23 13:33 Dose: Infused Documented By: REESE Levetiracetam (Levetiracetam Oral Soln 500 Mg/5 Ml) 1,000 mg PO BID [facility] Last Admin: 10/06/23 08:53 Dose: 1,000 mg Documented By: REESE Lisinopril (Lisinopril 20 Mg Tablet) 20 mg PO DAILY [facility]; Protocol Last Admin: 10/06/23 08:53 Dose: 20 mg Documented By: REESE Magnesium Hydroxide (Milk Of Magnesia 30 Ml Oral.Susp) 30 ml PO DAILY PRN PRN Reason: Constipation Multivitamins/Vitamin C (Multivitamin Tablet) 1 tab PO DAILY [facility] Last Admin: 10/06/23 08:53 Dose: 1 tab Documented By: REESE Ondansetron HCl (Ondansetron Hcl 4 Mg/2 Ml Vial) 4 mg IVPUSH Q8H PRN PRN Reason: Nausea and Vomiting Rivaroxaban (Rivaroxaban 20 Mg Tablet) 20 mg PO DAILY [facility] Last Admin: 10/06/23 08:53 Dose: 20 mg Documented By: REESE Sodium Chloride (0.9 % Sodium Chloride Flush 3 Ml Syringe) 3 ml IVFLUSH QSHIFT [facility] Last Admin: 10/06/23 08:52 Dose: 3 ml Documented By: REESE Vitamin D (Cholecalciferol (Vitamin D3) 25 Mcg Tablet) 50 mcg PO DAILY [facility] Last Admin: 10/06/23 08:53 Dose: 50 mcg Documented By: REESE Labs 10/03/23 06:02 10/06/23 11:36 Labs: Laboratory Results - last 24 hr 10/06/23 11:36 Anion Gap 10 L Estim Creat Clear Calc 78.2 Estimated GFR > 60 Random Glucose 149 H Calcium 8.7 D Assessment and Plan (1) Acute left-sided weakness: Status: Acute Plan 68yo F with 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 Notably she did miss last night's dose of her antiepileptic. She is not a TNK candidate due to being on Xarelto and there is no LVO on CTA. E coli UTI continue rocephin, started 10/01 Blood cultures negative to date Left sided weakness. hx of epilepsy Head and neck CTA/CT neg for bleed or acute infarction MRI brain neg for acute infarction Neuro consultation> unable to do EEG due to anatomy from severe torticollis, feels symptoms of left-sided weakness are secondary to radiation effects weakness improving PT rec STR. initially plan for family to take her home, now plan for STR Epilepsy Continue Keppra 1000 mg b.i.d. changed to liquid formulation HTN Stable blood pressure Amlodipine and lisinopril IV hydralazine for SBP>180 hx DVT On Xarelto DVT prophylaxis with Xarelto attending Dr. Puente DNR awaiting STR bed Quality Stroke Does the patient have a stroke diagnosis?: Yes Reason for No Anti-thrombotic by Day Two: N/A - Med Ordered VTE Prior VTE?: Yes VTE Risk Level:: Medical - moderate - high VTE Device Contraindication: N/A - Device Ordered VTE Drug Contraindication: N/A - Med Ordered
--- NOTE | 2023-10-06 15:15 | MHC.SL.SWA ---
Speech Pathologist Impression: Risk of aspiration, oral phase dysphagia Risk of Aspiration Due to: Neurological Condition Reduced Cognition Weak Cough Weak Voice Dysphasia Diet Status: Continue on CHOPPED/ADVANCED solids (NDD3) w/ thin liquids and pills crushed in puree. Pt requires assistance throughout meals; assure patient is seated and positioned well. Provide liquids by straw sip. Liquid Consistency and Strategies for Safe Swallow: Liquid Intake Recommendation: Thin Liquid Intake Strategies: Small Sips Solid Food Consistency: Dietary Recommendations: Chopped/Advanced (NDD3) Additional Modifications to Solid Foods: Assure that patient is comfortably seated with head of bed elevated >70 Degrees. Patient requires 1-1 feeding, provide small bites and sips, and alternate liquids and solids. Place towel on patient to catch any drops or spills. Oral Medication Intake: Crushed with Puree Please contact the pharmacy regarding appropriate crushable or liquid drug formulations that are available whenever modified delivery is recommended. Compensatory Strategies and Precautions to be Taken for Safe Swallow: Sitting Upright (90 deg) Liquids from Straw Small Bites and Sips Alternate Liquids/Solids Rate of Ingestion Change Supervision While Eating and Drinking for Safe Swallow: Total Assistance (1:1) Foods to Avoid: Hard, dry or difficult to chew solids, too large pieces of food. Swallowing Recommended Treatments: Compens. Strategy Educat. Recommendation for Speech: Inpatient Speech Therapy Comment: Recommend CHOPPED/ADVANCED SOLIDS (NDD3) with THIN LIQUIDS. MEDS CRUSHED with PUREE. 1:1 FEEDING. SPEEDOMETER INSPECTOR will follow to re-assess potential for upgrade. Frequency/Duration: Daily Date Range for Service Req: Admission Timeline to reassess: PRN [employer] Clinican/Clinical Fellow: No Supervisory Statement: I have reviewed and agree with the student/clinical fellow's documentation: N/A Speech Language Pathologist: Renetta Samaniego M.A., CCC-SPEEDOMETER INSPECTOR
[2023-10-06] MEDS: Docusate Sodium 100 MG/10 ML LIQUID PO (20:47)
[2023-10-07] VITALS (8 sets, daily range): BP systolic 134–188; BP diastolic 65–91; PULSE 61–124; RESP 18–20; TEMP 36.1–37.1; O2SAT 96–99
[2023-10-07] MEDS: Rivaroxaban 20 MG TABLET PO (08:29)
[2023-10-07] MEDS: levETIRAcetam Oral Soln 500 MG/5 ML 1000 MG PO ×2 (08:30→21:59)
[2023-10-07] MEDS: lisinopriL 20 MG TABLET PO (08:30)
[2023-10-07] MEDS: Multivitamin TABLET 1 TAB PO (08:30)
[2023-10-07] MEDS: amLODIPine Besylate 5 MG TABLET PO (08:30)
[2023-10-07] MEDS: Atorvastatin Calcium 40 MG TABLET PO (08:30)
[2023-10-07] MEDS: Cholecalciferol (Vitamin D3) 25 MCG TABLET 50 MCG PO (08:31)
[2023-10-07 08:59] LABS: Hematocrit 43.4 % (37.0-47.0); Hemoglobin 13.8 g/dl (12.0-16.0); Mean Corpuscular HGB Conc 31.8 g/dl (31.0-35.0); Mean Corpuscular Volume 88.2 fL (80.0-98.0); Mean Platelet Volume 10.2 fL (9.4-12.3); Platelet Count 226 X10*3/uL (160-400); Red Blood Count 4.92 X10*6/uL (4.20-5.50); Red Cell Distribution Width 13.8 % (11.0-16.0); White Blood Count 7.9 X10*3/uL (4.8-10.8)
--- NOTE | 2023-10-07 11:44 | P.PNIM_ITS ---
Subjective Subjective Date of Service: 10/07/23 Interval History: seen and examined this morning follow up for left arm weakness patient awake alert, able to lift left arm and squeeze Review of Systems Review of Systems: Yes all other systems are reviewed and are negative Constitutional Constitutional: Denies fever(s) Cardiovascular Cardiovascular: Denies chest pain Gastrointestinal Gastrointestinal: Denies abdominal pain Physical Exam 2 Vital Signs: Vital Signs: Last Vital Signs Temp 98.7 F 10/07/23 10:44 Pulse 124 H 10/07/23 10:44 Resp 18 10/07/23 10:44 BP 134/87 10/07/23 10:44 Pulse Ox 96 10/07/23 10:44 O2 Del Method Room Air 10/07/23 10:44 BMI result Body Mass Index 25.3 Appearing in no acute distress lung sounds are clear to auscultation heart regular rate rhythm, clear S1, S2 positive bowel sounds, abdomen is soft, nontender neuro patient is alert, mild Objective Data Active Medications Acetaminophen (Acetaminophen Oral Liquid 650 Mg/20.3 Ml Solution) 650 mg PO Q6H PRN PRN Reason: Pain, Mild (Pain Scale 1-3), fever or headache Last Admin: 10/03/23 21:59 Dose: 650 mg Documented By: ZONIA Acetaminophen (Acetaminophen Supp 650 Mg Supp.Rect) 650 mg [place] Q6H PRN PRN Reason: Fever Last Admin: 10/02/23 17:32 Dose: 650 mg Documented By: KLEBER Albuterol Sulfate (Albuterol Sulfate 90 Mcg 8 Gm Inhaler) 2 puff INHALE Q6H PRN PRN Reason: Shortness of Breath Amlodipine Besylate (Amlodipine Besylate 5 Mg Tablet) 5 mg PO DAILY [facility]; Protocol Last Admin: 10/07/23 08:30 Dose: 5 mg Documented By: SHAWNEE Atorvastatin Calcium (Atorvastatin Calcium 40 Mg Tablet) 40 mg PO DAILY [facility] Last Admin: 10/07/23 08:30 Dose: 40 mg Documented By: SHAWNEE Docusate Sodium (Docusate Sodium 100 Mg/10 Ml Liquid) 100 mg PO BEDTIME [facility] Last Admin: 10/06/23 20:47 Dose: 100 mg Documented By: LAFLAMC Hydralazine HCl (Hydralazine Hcl 20 Mg/Ml Vial) 5 mg IVPUSH Q4H PRN; Protocol PRN Reason: SBP>180 Ceftriaxone Sodium 1 gm/ (Sodium Chloride) 50 mls @ 100 mls/hr IV Q24H [facility] Last Infusion: 10/06/23 13:33 Dose: Infused Documented By: SOLISPE Levetiracetam (Levetiracetam Oral Soln 500 Mg/5 Ml) 1,000 mg PO BID [facility] Last Admin: 10/07/23 08:30 Dose: 1,000 mg Documented By: SHAWNEE Lisinopril (Lisinopril 20 Mg Tablet) 20 mg PO DAILY [facility]; Protocol Last Admin: 10/07/23 08:30 Dose: 20 mg Documented By: SHAWNEE Magnesium Hydroxide (Milk Of Magnesia 30 Ml Oral.Susp) 30 ml PO DAILY PRN PRN Reason: Constipation Multivitamins/Vitamin C (Multivitamin Tablet) 1 tab PO DAILY [facility] Last Admin: 10/07/23 08:30 Dose: 1 tab Documented By: SHAWNEE Ondansetron HCl (Ondansetron Hcl 4 Mg/2 Ml Vial) 4 mg IVPUSH Q8H PRN PRN Reason: Nausea and Vomiting Rivaroxaban (Rivaroxaban 20 Mg Tablet) 20 mg PO DAILY [facility] Last Admin: 10/07/23 08:29 Dose: 20 mg Documented By: SHAWNEE Sodium Chloride (0.9 % Sodium Chloride Flush 3 Ml Syringe) 3 ml IVFLUSH QSHIFT [facility] Last Admin: 10/06/23 20:48 Dose: 3 ml Documented By: DIONNALAMKadi Vitamin D (Cholecalciferol (Vitamin D3) 25 Mcg Tablet) 50 mcg PO DAILY [facility] Last Admin: 10/07/23 08:31 Dose: 50 mcg Documented By: SHAWNEE Labs 10/07/23 08:35 10/06/23 11:36 Labs: Laboratory Results - last 24 hr 10/06/23 10/07/23 11:36 08:35 MCV 88.2 MCH 28.0 MCHC 31.8 RDW 13.8 Plt Count 226 MPV 10.2 Absolute Nucleated RBC 0.000 Nucleated RBC % (auto) 0.0 Anion Gap 10 L Estim Creat Clear Calc 78.2 Estimated GFR > 60 Random Glucose 149 H Calcium 8.7 D Assessment and Plan (1) Acute left-sided weakness: Status: Acute Plan 68yo F with 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 Notably she did miss last night's dose of her antiepileptic. She is not a TNK candidate due to being on Xarelto and there is no LVO on CTA. E coli UTI completed 5 days of IV rocephin, 10/07/23 Blood cultures negative to date Left sided weakness. hx of epilepsy Head and neck CTA/CT neg for bleed or acute infarction MRI brain neg for acute infarction Neuro consultation> unable to do EEG due to anatomy from severe torticollis, feels symptoms of left-sided weakness are secondary to radiation effects weakness improving PT rec STR. initially plan for family to take her home, now plan for STR Epilepsy Continue Keppra 1000 mg b.i.d. changed to liquid formulation HTN Stable blood pressure Amlodipine and lisinopril IV hydralazine for SBP>180 hx DVT On Xarelto DVT prophylaxis with Xarelto attending Dr. Sherman DNR awaiting STR bed Quality Stroke Does the patient have a stroke diagnosis?: Yes Reason for No Anti-thrombotic by Day Two: N/A - Med Ordered VTE Prior VTE?: Yes VTE Risk Level:: Medical - moderate - high VTE Device Contraindication: N/A - Device Ordered VTE Drug Contraindication: N/A - Med Ordered
[2023-10-07] MEDS: 0.9 % Sodium Chloride Flush 3 ML SYRINGE IVFLUSH ×3 (13:04→22:01)
[2023-10-07] MEDS: cefTRIAXone sodium 1 GM in 0.9 % Sodium Chloride 50 ML IV (13:16)
[2023-10-07] MEDS: Docusate Sodium 100 MG/10 ML LIQUID PO (21:59)
[2023-10-07] MEDS: Acetaminophen Oral Liquid 650 MG/20.3 ML SOLUTION PO (22:11)
[2023-10-08] VITALS (7 sets, daily range): BP systolic 137–165; BP diastolic 66–77; PULSE 56–86; RESP 16–20; TEMP 36.3–36.6; O2SAT 94–100
[2023-10-08] MEDS: 0.9 % Sodium Chloride Flush 3 ML SYRINGE IVFLUSH ×3 (09:04→22:35)
[2023-10-08] MEDS: levETIRAcetam Oral Soln 500 MG/5 ML 1000 MG PO ×2 (09:04→22:35)
[2023-10-08] MEDS: amLODIPine Besylate 5 MG TABLET PO (09:04)
[2023-10-08] MEDS: lisinopriL 20 MG TABLET PO (09:05)
[2023-10-08] MEDS: Rivaroxaban 20 MG TABLET PO (09:05)
[2023-10-08] MEDS: Multivitamin TABLET 1 TAB PO (09:05)
[2023-10-08] MEDS: Atorvastatin Calcium 40 MG TABLET PO (09:05)
[2023-10-08] MEDS: Cholecalciferol (Vitamin D3) 25 MCG TABLET 50 MCG PO (09:05)
--- NOTE | 2023-10-08 09:59 | HO.PM.IMPN ---
Subjective Subjective Date of Service: 10/08/23 Interval History: seen and examined this morning follow up for left arm weakness patient awake alert, able to lift left arm and squeeze Review of Systems Review of Systems: Yes all other systems are reviewed and are negative Constitutional Constitutional: Denies fever(s) Cardiovascular Cardiovascular: Denies chest pain Gastrointestinal Gastrointestinal: Denies abdominal pain Physical Exam Vital Signs: Vital Signs: Last Vital Signs Temp 97.6 F 10/08/23 07:45 Pulse 56 10/08/23 07:45 Resp 16 10/08/23 07:45 BP 145/70 H 10/08/23 07:45 Pulse Ox 99 10/08/23 07:45 O2 Del Method Room Air 10/08/23 07:45 BMI result Body Mass Index 25.3 Appearing in no acute distress lung sounds are clear to auscultation heart regular rate rhythm, clear S1, S2 positive bowel sounds, abdomen is soft, nontender neuro patient is alert, mostly nonverbal, severe torticollis Objective Data Active Medications Acetaminophen (Acetaminophen Oral Liquid 650 Mg/20.3 Ml Solution) 650 mg PO Q6H PRN PRN Reason: Pain, Mild (Pain Scale 1-3), fever or headache Last Admin: 10/07/23 22:11 Dose: 650 mg Documented By: LIU Acetaminophen (Acetaminophen Supp 650 Mg Supp.Rect) 650 mg LA Q6H PRN PRN Reason: Fever Last Admin: 10/02/23 17:32 Dose: 650 mg Documented By: KLEBER Albuterol Sulfate (Albuterol Sulfate 90 Mcg 8 Gm Inhaler) 2 puff INHALE Q6H PRN PRN Reason: Shortness of Breath Amlodipine Besylate (Amlodipine Besylate 5 Mg Tablet) 5 mg PO DAILY [facility]; Protocol Last Admin: 10/08/23 09:04 Dose: 5 mg Documented By: OCTAVIO Atorvastatin Calcium (Atorvastatin Calcium 40 Mg Tablet) 40 mg PO DAILY [facility] Last Admin: 10/08/23 09:05 Dose: 40 mg Documented By: OCTAVIO Docusate Sodium (Docusate Sodium 100 Mg/10 Ml Liquid) 100 mg PO BEDTIME [facility] Last Admin: 10/07/23 21:59 Dose: 100 mg Documented By: LIU Hydralazine HCl (Hydralazine Hcl 20 Mg/Ml Vial) 5 mg IVPUSH Q4H PRN; Protocol PRN Reason: SBP>180 Levetiracetam (Levetiracetam Oral Soln 500 Mg/5 Ml) 1,000 mg PO BID [facility] Last Admin: 10/08/23 09:04 Dose: 1,000 mg Documented By: OCTAVIO Lisinopril (Lisinopril 20 Mg Tablet) 20 mg PO DAILY [facility]; Protocol Last Admin: 10/08/23 09:05 Dose: 20 mg Documented By: OCTAVIO Magnesium Hydroxide (Milk Of Magnesia 30 Ml Oral.Susp) 30 ml PO DAILY PRN PRN Reason: Constipation Multivitamins/Vitamin C (Multivitamin Tablet) 1 tab PO DAILY [facility] Last Admin: 10/08/23 09:05 Dose: 1 tab Documented By: OCTAVIO Ondansetron HCl (Ondansetron Hcl 4 Mg/2 Ml Vial) 4 mg IVPUSH Q8H PRN PRN Reason: Nausea and Vomiting Rivaroxaban (Rivaroxaban 20 Mg Tablet) 20 mg PO DAILY [facility] Last Admin: 10/08/23 09:05 Dose: 20 mg Documented By: OCTAVIO Sodium Chloride (0.9 % Sodium Chloride Flush 3 Ml Syringe) 3 ml IVFLUSH QSHIFT [facility] Last Admin: 10/08/23 09:04 Dose: 3 ml Documented By: OCTAVIO Vitamin D (Cholecalciferol (Vitamin D3) 25 Mcg Tablet) 50 mcg PO DAILY [facility] Last Admin: 10/08/23 09:05 Dose: 50 mcg Documented By: OCTAVIO Labs 10/07/23 08:35 10/06/23 11:36 Microbiology Microbiology Results: Microbiology 10/02/23 15:43 Blood Culture - Final Blood - Venous No growth after 5 days. 10/02/23 15:43 Blood Culture - Final Blood - Venous No growth after 5 days. 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 Notably she did miss last night's dose of her antiepileptic. She is not a TNK candidate due to being on Xarelto and there is no LVO on CTA. E coli UTI completed 5 days of IV rocephin, 10/07/23 Blood cultures negative to date Left sided weakness. Resolved hx of epilepsy Head and neck CTA/CT neg for bleed or acute infarction MRI brain neg for acute infarction Neuro consultation> unable to do EEG due to anatomy from severe torticollis, feels symptoms of left-sided weakness are secondary to radiation effects weakness improving Epilepsy Continue Keppra 1000 mg b.i.d. changed to liquid formulation HTN Stable blood pressure Amlodipine and lisinopril IV hydralazine for SBP>180 hx DVT On Xarelto DVT prophylaxis with Xarelto attending Dr. Sherman DNR awaiting [facility] bed Quality Stroke Does the patient have a stroke diagnosis?: Yes Reason for No Anti-thrombotic by Day Two: N/A - Med Ordered VTE Prior VTE?: Yes VTE Risk Level:: Medical - moderate - high VTE Device Contraindication: N/A - Device Ordered VTE Drug Contraindication: N/A - Med Ordered
[2023-10-08] MEDS: Docusate Sodium 100 MG/10 ML LIQUID PO (22:34)
[2023-10-09 03:28] VITALS: BP 160/73; PULSE 66; RESP 18; TEMP 36.3; O2SAT 99
[2023-10-09 08:00] VITALS: BP 158/74; PULSE 64; RESP 18; TEMP 36.6; O2SAT 99
[2023-10-09] MEDS: amLODIPine Besylate 5 MG TABLET PO (09:17)
[2023-10-09] MEDS: Cholecalciferol (Vitamin D3) 25 MCG TABLET 50 MCG PO (09:17)
[2023-10-09] MEDS: levETIRAcetam Oral Soln 500 MG/5 ML 1000 MG PO (09:17)
[2023-10-09] MEDS: Atorvastatin Calcium 40 MG TABLET PO (09:17)
[2023-10-09] MEDS: Rivaroxaban 20 MG TABLET PO (09:17)
[2023-10-09] MEDS: Multivitamin TABLET 1 TAB PO (09:17)
[2023-10-09] MEDS: lisinopriL 20 MG TABLET PO (09:17)
[2023-10-09] MEDS: 0.9 % Sodium Chloride Flush 3 ML SYRINGE IVFLUSH (09:18)
--- NOTE | 2023-10-09 10:32 | MHC.CM.PN ---
KETURAH left a detailed message for Liliam from [facility] @ [phone], requesting that she look into why auth for this Patient is taking so long. KETURAH will follow.
--- NOTE | 2023-10-09 11:10 | MHC.CM.PN ---
Patient has been medically cleared for dc to SNF/STR today. Patient will dc to the first choice SNF/[facility] in the [facility] today at 2PM, via [facility] transport auth is [id number]). CM met with Patient and family at bedside and addressed IMM with Daughter/HCP/Yeisia (original given to Daughter and a copy has been placed on the chart).
--- NOTE | 2023-10-09 11:25 | MHC.SL.SWA ---
Speech Pathologist Impression: Risk of aspiration Risk of Aspiration Due to: Neurological Condition Reduced Cognition Weak Cough Weak Voice Dysphasia Diet Status: Continue on CHOPPED/ADVANCED solids (NDD3) w/ thin liquids and pills crushed in puree. Pt requires assistance throughout meals; assure patient is seated and positioned well. Provide liquids by straw sip. Liquid Consistency and Strategies for Safe Swallow: Liquid Intake Recommendation: Thin Liquid Intake Strategies: Small Sips Solid Food Consistency: Dietary Recommendations: Chopped/Advanced (NDD3) Additional Modifications to Solid Foods: Assure that patient is comfortably seated with head of bed elevated >70 Degrees. Patient requires 1-1 feeding, provide small bites and sips, and alternate liquids and solids. Place towel on patient to catch any drops or spills. Oral Medication Intake: Crushed with Puree Please contact the pharmacy regarding appropriate crushable or liquid drug formulations that are available whenever modified delivery is recommended. Compensatory Strategies and Precautions to be Taken for Safe Swallow: Sitting Upright (90 deg) Liquids from Straw Small Bites and Sips Alternate Liquids/Solids Rate of Ingestion Change Supervision While Eating and Drinking for Safe Swallow: Total Assistance (1:1) Foods to Avoid: Hard, dry or difficult to chew solids, too large pieces of food. Swallowing Recommended Treatments: Compens. Strategy Educat. Recommendation for Speech: Inpatient Speech Therapy Comment: Recommend CHOPPED/ADVANCED SOLIDS (NDD3) with THIN LIQUIDS. MEDS CRUSHED with PUREE. 1:1 FEEDING. STRIPPER CUTTER MACHINE will follow to re-assess potential for upgrade. Frequency/Duration: Daily Date Range for Service Req: Admission Timeline to reassess: PRN Rug Designer Clinican/Clinical Fellow: No Supervisory Statement: I have reviewed and agree with the student/clinical fellow's documentation: N/A Speech Language Pathologist: Renetta Samaniego M.A., CCC-STRIPPER CUTTER MACHINE
[2023-10-09 12:00] VITALS: BP 124/60; PULSE 66; RESP 18; TEMP 36.6; O2SAT 96
== END 2023-10-09 15:15 | disposition skilled nursing facility (03) | DRG 57 ==
LOC: HO.ED 17:15 → HO.EDOVER 18:52 → HO.IMC 10-03 00:07
PROVIDERS: Physician Assistant Medical; Admitting Provider Family Medicine; Emergency Provider Emergency Medicine; Visit Provider Nurse Practitioner Acute Care
DX: G81.14 Spastic hemiplegia affecting left nondominant side (principal); N39.0 Urinary tract infection, site not specified; B96.20 Unspecified Escherichia coli [E. coli] as the cause of diseases classified elsewhere; M43.6 Torticollis; I10 Essential (primary) hypertension; T66.XXXS Radiation sickness, unspecified, sequela; G40.909 Epilepsy, unspecified, not intractable, without status epilepticus; Z86.718 Personal history of other venous thrombosis and embolism; Z86.73 Personal history of transient ischemic attack (TIA), and cerebral infarction without residual deficits; Z85.841 Personal history of malignant neoplasm of brain; Z79.01 Long term (current) use of anticoagulants; Z79.82 Long term (current) use of aspirin; Z79.899 Other long term (current) drug therapy
CPT/HCPCS: 36415; 70450; 70496; 70498; 70551; 80048; 80061; 80076; 81001; 82947; 83036; 83690; 83735; 84484; 85025; 85027; 85610; 85730; 87040; 87086; 87088; 87186; 92526; 92610; 93005; 97110; 97112; 97163; 97166; 97530; 97535; 99285; J0696; J1650; J1953; Q9967

== ENCOUNTER → 2023-10-01 14:42 | Outpatient (BNV) | payer OTHER, SELFPAY | PROVIDERS: Admitting Provider Family Medicine; Emergency Provider Emergency Medicine; Visit Provider Internal Medicine | DX: R00.0 Tachycardia, unspecified (principal) | CPT/HCPCS: 93010 ==

== ENCOUNTER → 2023-10-01 18:46 | Outpatient (BNV) | payer OTHER, SELFPAY | PROVIDERS: Admitting Provider Family Medicine; Emergency Provider Emergency Medicine; Visit Provider Family Medicine | DX: R53.1 Weakness (principal) | CPT/HCPCS: 99223; 99231; 99232; 99239 ==

== ENCOUNTER → 2023-10-01 18:46 | Outpatient (BNV) | payer OTHER, SELFPAY | PROVIDERS: Admitting Provider Family Medicine; Emergency Provider Emergency Medicine; Visit Provider Psychiatry & Neurology Neurology | DX: G81.94 Hemiplegia, unspecified affecting left nondominant side (principal) | CPT/HCPCS: 99222 ==

== ENCOUNTER 2023-10-31 14:54 | Outpatient (AMB) | payer OTHER, SELFPAY ==
--- NOTE | 2023-10-31 14:57 | MHC.PC.OV ---
Vital Signs 10/31/23 15:10 Weight 153 lb 8 oz BP 118/64 Blood Pressure Location Lt brachial Position Sitting Respiration 16 Pulse 76 Pulse Source Pulse Oximeter Temp 98.0 F Temp Source Oral Pulse Oximetry (%) 100 Oxygen Delivery Method Room Air Intake Visit Reasons: HDF/epilepsy Intake Note: patient here for hospital discharge follow up and epilepsy Veterinary X Ray Operator Required: No Is last menstrual period known: No Post menopausal: No Patient : No Allergies apple [Apple] Allergy (Severe, Verified 10/31/23 15:05) THROAT SWELLING pollen extracts [POLLEN] Allergy (Intermediate, Verified 10/31/23 15:05) SNEEZING COUGHING ALOT kiwi [Kiwi (Actinidia Chinensis)] Adverse Reaction (Intermediate, Verified 10/31/23 15:05) VOMITING avocado [Avocado] Adverse Reaction (Mild, Verified 10/31/23 15:05) VOMITING Tobacco use date assessed: 10/31/23 Fall risk assessment: 2 + Falls in past year Last assessed Fall Risk: 10/31/23 Dental Screening Dental Screen Date: 09/05/23 HPI HPI Comments History of Present Illness Details 68-year-old female, accompanied by her son, presents for a hospital discharge follow-up She was treated at [facility] between 10/01/2023 and 10/04/2023 for encephalopathy and left-sided weakness. [facility] discharge summary below: DS: Summary Hospital Course Hospital Course: History and physical as per admitting provider. 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 Also hx of DVT for which she is on Xarelto, and hx of CVA for which she is on ASA. History per pt's daughter who is her HCP and lives downstairs from her. The pt's noted the patient became lethargic and then developed L-sided facial droop and L-sided weakness around 13:30. Last known well time was 12:45. She was more shaky then usual but no clear seizure. She is R-handed. She also has severe torticollis. She missed her nighttime doses of medications last night including Keppra. Given Xarelto use, she was not a TNK candidate. She was noted to be hypertensive at 193/94. CT did not show any acute ICH and CTA did not show any LVO. The ED physician noted flaccid paralysis on the pt's left but it seems more spastic to me at this time. She is somonolent but arousable, responding in her the [place] language [place] to her family but then subsequently going back to sleep. 68-year-old woman admitted with encephalopathy and left-sided weakness initially. Head and neck CTA and CT were negative for bleed or acute infarction, MRI negative for infarction. Patient was seen by Neurology recommended EEG however due to patient's severe torticollis she was unable to have the EEG completed. Neurology stated that symptoms are likely related to affects of radiation as this can happen even decades after treatment. He discussed this in length with the patient's family and they stated understanding. Within 24 hours patient was much more awake and communicating at her baseline as per . She had ran fevers for 24 hours and was found to have a UTI with cultures coming back for E coli which has been pretty consistent for her. Discussed with patient's family regarding following up with Urology for frequent urinary tract infections. Patient was treated with IV Rocephin. Has a history of epilepsy and had initially been on IV Keppra but can continue her oral Keppra home. Blood pressures were high initially and because she was encephalopathic she was placed on IV hydralazine but as she became more awake her home amlodipine and lisinopril were restarted. Also because of her encephalopathy her Xarelto was switched to therapeutic Lovenox but she can now continue her Xarelto for history of DVT. At this point patient is going to be discharged to [facility] and family is in agreement of this. According to his son, the patient spent about a week at a rehab facility after her last hospitalization. He notes that she has been at her baseline since she was discharged from the hospital. The patient offers no complaints and denies acute symptoms at this time. [facility] Medical History Seizure Brain cancer Metabolic alkalosis with respiratory acidosis Encounter for palliative care Sebaceous cyst of axilla Essential hypertension PVC (premature ventricular contraction) PAC (premature atrial contraction) Torticollis, acquired UTI (urinary tract infection), bacterial Bladder incontinence Unspecified urinary incontinence Abscess Symptomatic PVCs Physical exam, annual Stroke Insomnia Closed fracture of fibula with routine healing Fracture of distal end of fibula Right ankle pain HTN (hypertension) DVT (deep venous thrombosis) Surgical History Hx of section Hx of tubal ligation H/O craniotomy Family History Mother Diabetes Father Heart disease Family/Other Breast cancer Brain cancer Diabetes Social History Household Members: Unknown / Unable to assess Housing: Unknown / Unable to assess Housing Other:: Lives with Spouse Unable to assess alcohol history related to: Unable to respond Alcohol intake: never Comment: family in room Patient Tobacco Use Status: Never used Tobacco e-Cigarette/Vaping Use: Never Used Second Hand Smoke Exposure: No Advance Directives Date on File: 02/12/20 service: No Current occupational status: retired and disabled Cognitive needs: Yes Hearing needs: No Vision needs: Yes Female Reproductive History Menstrual Age of Menarche: 9 Questionnaire Thrive Questionnaire Date Thrive assessed: 10/03/23 MADAY-7 AMB Questionnaire MADAY-7 Date MADAY - 7 assessed: 02/28/23 Source: Developed by Drs. Horace Pineda, Daya Durbin, Romero Cat and colleagues, with an educational loren from [employer]. Review of Systems Const Details: Const Denies chills, Denies fatigue, Denies fever(s), Denies headache(s) and Denies weakness ENT Denies dizziness and Denies headache(s) Card Denies chest pain, Denies lightheadedness, Denies dyspnea and Denies other (Palpitations) Resp Denies cough, Denies dyspnea, Denies wheezing and Denies other ( shortness of breath) GI Denies abdominal pain, Denies melena, Denies hematochezia, Denies change in bowel habits, Denies dyspepsia and Denies nausea Denies hematuria and Denies dysuria Musc Denies abnormal gait, Denies myalgias, Denies arthralgias, Denies numbness and Denies tingling Skin/Breast Denies rash, Denies unusual bruising and Denies wounds Neuro Denies dizziness, Denies headache(s), Denies memory loss, Denies numbness, Denies Sensory deficit (Neuro), Denies tingling and Denies weakness Psych Denies anxiety, Denies depression, Denies memory loss Endo Denies cold intolerance, Denies fatigue, Denies heat intolerance, Denies polydipsia and Denies polyuria Aller/Immun Denies wheezing Physical exam (Primary Care) Vital Signs: Last Vital Signs Temp 98.0 F 10/31/23 15:10 Pulse 76 10/31/23 15:10 Resp 16 10/31/23 15:10 BP 118/64 10/31/23 15:10 Pulse Ox 100 10/31/23 15:10 Oxygen Delivery Method Room Air 10/31/23 15:10 Tobacco/Smoking Status: Tobacco use Status Tobacco use date assessed 10/31/23 10/31/23 15:13 Patient Tobacco Use Status Never used Tobacco 10/31/23 14:59 e-Cigarette/Vaping Use Never Used 10/31/23 14:59 Thrive Assessment: Date of Thrive Assessment Date Thrive assessed 10/03/23 10/31/23 14:59 Const Other: General: no acute distress and well developed Nutritional Appearance: well nourished Orientation/consciousness: patient oriented x3 HENMT Head: Yes normocephalic and Yes atraumatic Eyes General: appearance normal, both eyes and all related structures Pupils: Equal, round and reactive pupils present EOM: EOMs intact bilaterally Resp Effort & Inspection: normal respiratory effort Auscultation: clear to auscultation bilaterally Cardio Rate: regular rate Rhythm: regular rhythm Heart sounds: S1 normal heart sound present, S2 normal heart sound present, no gallops, no murmurs and no rubs GI Palpation (GI): No Abdominal aortic bruit present, Soft to palpation, nontender, No hepatosplenomegaly present and No Rebound tenderness present Auscultation: normal bowel sounds General: Yes no CVA tenderness Back/Spine/Pelvis Back: no CVA tenderness Cervical Spine: cervical ROM normal and No Cervical spine tenderness Thoracic/Lumbar Spine: thoraco-lumbar ROM normal, No pain with thoraco-lumbar ROM, No thoracic spinal tenderness and No lumbar spinal tenderness Extrem General: Yes normal to inspection, No edema and No calf tenderness Skin General: warm and dry. Normal skin color. Normal skin turgor Neuro General: patient oriented x3, unsteady gait at baseline and no focal neuro deficit Cranial nerves: Yes Equal, round and reactive pupils present Cognition (Neuro): normal cognition Gait exam (Neuro): Unsteady gait at baseline Sensory Exam: No Sensory deficit (Neuro) Psych Appearance: grossly normal Affect: normal affect Attitude: cooperative Thought process: Normal thought process present Assessment and Plan Assessment & Plan (1) Hospital discharge follow-up: Code(s): Z09 - Encounter for follow-up examination after completed treatment for conditions other than malignant neoplasm Plan: No acute symptoms at this time Continue current treatment regimen Healthy diet and routine exercise encouraged She is followed by [facility] urology. Advised to call and schedule an appointment for frequent UTI Encouraged to get fasting lipid panel blood work done before her next visit Follow-up in 4 months for an extended physical exam or sooner with symptoms or concerns Verbalized understanding and agreed with the treatment plan (2) HTN (hypertension): Code(s): I10 - Essential (primary) hypertension Qualifiers: Hypertension type: essential hypertension Qualified Code(s): I10 - Essential (primary) hypertension Plan: Blood pressure is 118/64, within goal of less than 130/80 Continue current treatment regimen Low-sodium diet encouraged Follow-up in 4 months Verbalized understanding and agreed with the plan Coding Level of Care Code Est Pt Level 4 (48425) Diagnoses Hospital discharge follow-up Z09 Essential hypertension I10 Hypertension type: essential hypertension
[2023-10-31 15:10] VITALS: BP 118/64; PULSE 76; RESP 16; TEMP 36.7; O2SAT 100
== END 2023-10-31 15:31 | disposition home or self-care (01) ==
PROVIDERS: Visit Provider Nurse Practitioner Family
DX: Z09 Encounter for follow-up examination after completed treatment for conditions other than malignant neoplasm (principal); I10 Essential (primary) hypertension
CPT/HCPCS: 99214

== ENCOUNTER 2023-12-11 14:06 | Outpatient (AMB) | payer OTHER, SELFPAY ==
[2023-12-11 14:07] VITALS: BP 134/64; PULSE 70; O2SAT 100; BMI 24.7
--- NOTE | 2023-12-11 14:07 | MHC.OFFVIS ---
Vital Signs 12/11/23 14:07 Height 5 ft 6 in Weight 153 lb BMI 24.7 BP 134/64 Blood Pressure Location Lt brachial Position Sitting Pulse 70 Pulse Source Pulse Oximeter Pulse Oximetry (%) 100 Oxygen Delivery Method Room Air Intake Visit Reasons: 3 monthf ollow up Intake Note: Relevant Flags or Indicators ? Requires Broadcast Technician? N Juani presents in office today for a scheduled 3 mos FUV. CC; Since last visit; labs ordered ? none. Rx ordered ? yes; colace. Diagnostics/images ordered ? none. Relevant GI Sx as reported per pt? o?? Constipation +? Diarrhea -- Pt still having constipation more than diarrhea. Treatments PRN do seem to be helping. ? Hx of any recent surgeries? None Broadcast Technician Required: No Accompanied by: Daughter Allergies apple [Apple] Allergy (Severe, Verified 12/11/23 14:07) THROAT SWELLING pollen extracts [POLLEN] Allergy (Intermediate, Verified 12/11/23 14:07) SNEEZING COUGHING ALOT kiwi [Kiwi (Actinidia Chinensis)] Adverse Reaction (Intermediate, Verified 12/11/23 14:07) VOMITING avocado [Avocado] Adverse Reaction (Mild, Verified 12/11/23 14:07) VOMITING HPI HPI 3 monthf ollow up: Details: LAST VISIT Colon cancer screening Constipation Plan Patient will continue Colace. Increase fluid intake. Please send Cologuard to patient. Please call and make sure that this will be sent with instructions. Patient's daughter is to check with the office in 1-2 weeks if she will not receive the package. I will follow-up with patient in 3 months, sooner on as needed basis. Both patient and her daughter are agreeable to plan of care and verbalizes understanding of instructions. They were given the opportunity to ask questions and all questions answered. ? Thank you for allowing me to participate in her care Medications Refilled docusate sodium 100 mg PO BEDTIME 90 caps 3RF K59.00 TODAY'S VISIT Patient is here today with her daughter for follow-up appointment. Patient's daughter reports that she has not received the Cologuard package. However she called her months PERSONAL LINES ADVISOR while in the office and the PERSONAL LINES ADVISOR reports that package has arrived couple months ago. Patient will do the Cologuard when she will get home and send it. Patient reports that she is moving her bowels better now that she is taking Senokot. Patient states that she takes 1 senna every night and has a bowel movement every morning. Patient denies any melena, hematochezia, unintentional weight loss or ribbon like stools patient denies any other GI concerning symptoms. Patient reports to be feeling stronger now [facility] Medical History Seizure Brain cancer Metabolic alkalosis with respiratory acidosis Encounter for palliative care Sebaceous cyst of axilla Essential hypertension PVC (premature ventricular contraction) PAC (premature atrial contraction) Torticollis, acquired UTI (urinary tract infection), bacterial Bladder incontinence Unspecified urinary incontinence Abscess Symptomatic PVCs Physical exam, annual Stroke Insomnia Closed fracture of fibula with routine healing Fracture of distal end of fibula Right ankle pain HTN (hypertension) DVT (deep venous thrombosis) Surgical History Hx of section Hx of tubal ligation H/O craniotomy Family History Mother Diabetes Father Heart disease Family/Other Breast cancer Brain cancer Diabetes Social History Household Members: Unknown / Unable to assess Housing: Unknown / Unable to assess Housing Other:: Lives with Spouse Unable to assess alcohol history related to: Unable to respond Alcohol intake: never Comment: family in room Patient Tobacco Use Status: Never used Tobacco e-Cigarette/Vaping Use: Never Used Second Hand Smoke Exposure: No Advance Directives Date on File: 02/12/20 service: No Current occupational status: retired and disabled Cognitive needs: Yes Hearing needs: No Vision needs: Yes Female Reproductive History Menstrual Age of Menarche: 9 Review of Systems Const Denies weight gain and Denies weight loss ENT Reports no additional complaints, Denies dysphagia and Denies odynophagia Card Reports no additional complaints Resp Reports no additional complaints GI Denies abdominal pain, Denies belching, Denies melena, Denies bloating, Denies change in bowel habits, Reports constipation, Denies dysphagia, Denies excessive flatus, Denies dyspepsia, Denies heartburn, Denies diarrhea, Reports loose stools, Denies nausea, Denies odynophagia and Denies vomiting Reports no additional complaints Musc Reports no additional complaints Neuro Reports no additional complaints Psych Reports no additional complaints Endo Reports no additional complaints Physical Exam Vital Signs: BMI result Body Mass Index 24.7 Const Other: Patient is in a wheelchair R sided torticollis General: no acute distress Orientation/consciousness: patient oriented x3 Resp Effort & Inspection: normal respiratory effort, able to speak in complete sentences, no tracheal deviation and symmetric chest movement Auscultation: clear to auscultation bilaterally Cardio Rate: regular rate GI Inspection: Yes normal to inspection and No distended Palpation (GI): Soft to palpation, not firm, nontender and No hepatosplenomegaly present Auscultation: normal bowel sounds General: Yes no CVA tenderness Back/Spine/Pelvis Back: no CVA tenderness Skin General skin exam: elasticity normal, turgor normal and dry skin Neuro General: patient oriented x3 Psych Appearance: grossly normal Mental Status: mental status grossly normal Assessment & Plan Assessment & Plan (1) Colon cancer screening: Code(s): Z12.11 - Encounter for screening for malignant neoplasm of colon Category: Medical (2) Constipation: Code(s): K59.00 - Constipation, unspecified Qualifiers: Constipation type: slow transit constipation Qualified Code(s): K59.01 - Slow transit constipation Plan Continue Senokot daily. Increase fluid intake and activity to promote better bowel motility. Continue high-fiber diet. Patient will do Cologuard and we will see her in 6 months. If Cologuard positive patient and her daughter are aware that they will be recommended to go for colonoscopy. Patient is agreeable to this plan and verbalizes understanding of instructions. She was given the opportunity to ask questions and all questions answered. Thank you for allowing me to participate in her care Medications: New sennosides (Natural Senna Laxative) 8.6 mg PO BEDTIME 90 tabs 3RF constipation K59.00 - Constipation, unspecified Discontinued docusate sodium Discontinued Reason: Doctor's Order 100 mg PO BEDTIME 90 caps 3RF K59.00 - Constipation, unspecified Coding Level of Care Code Est Pt Level 3 (82243) Diagnoses Colon cancer screening Z12.11 Slow transit constipation K59.01 Constipation type: slow transit constipation Time Spent (min) 25 Comment 15 minutes spent with patient and additional 10 minutes spent reviewing her records
== END 2023-12-11 14:36 | disposition home or self-care (01) ==
PROVIDERS: PCP Nurse Practitioner Family; Visit Provider Nurse Practitioner Family
DX: K59.01 Slow transit constipation (principal)
CPT/HCPCS: 99213

== ENCOUNTER → 2023-12-11 14:06 | Outpatient (BNVA) | payer OTHER, SELFPAY | PROVIDERS: PCP Nurse Practitioner Family; Visit Provider Nurse Practitioner Family | DX: K59.01 Slow transit constipation (principal) | CPT/HCPCS: 99212 ==

== ENCOUNTER 2024-04-05 09:55 | Outpatient (AMB) | payer OTHER, SELFPAY ==
--- NOTE | 2024-04-05 10:15 | A.OFFPC_ITS ---
Vital Signs 04/05/24 10:22 Height 5 ft 6 in Weight 153 lb 4 oz BMI 24.7 BP 120/70 Blood Pressure Location Lt brachial Position Sitting Respiration 14 Pulse 73 Pulse Source Pulse Oximeter Temp 98.0 F Temp Source Oral Pulse Oximetry (%) 99 Oxygen Delivery Method Room Air Intake Visit Reasons: 4 mos CPE Intake Note: CPE Milk Tester Required: No Inside Sales Administrator: Present Accompanied by: Daughter Is last menstrual period known: No Post menopausal: Yes Patient : No Allergies apple [Apple] Allergy (Severe, Verified 04/05/24 10:49) THROAT SWELLING pollen extracts [POLLEN] Allergy (Intermediate, Verified 04/05/24 10:49) SNEEZING COUGHING ALOT kiwi [Kiwi (Actinidia Chinensis)] Adverse Reaction (Intermediate, Verified 04/05/24 10:49) VOMITING avocado [Avocado] Adverse Reaction (Mild, Verified 04/05/24 10:49) VOMITING Medication List - Last Reconciled 04/05/24 by Neto Aguirre CNP amlodipine 5 mg PO DAILY 90 days aspirin 81 mg PO DAILY atorvastatin 40 mg PO DAILY [automatic blood pressure cuff As directed] cholecalciferol (vitamin D3) 50 mcg PO DAILY 90 days levetiracetam 1,000 mg (10 mL) PO BID 30 days lisinopril 20 mg See Protocol PO DAILY miscellaneous medical supply Disposable Diaper-PullUps. size large 8x daily As directed, 30 day supply multivitamin 1 tab PO DAILY rivaroxaban (Xarelto) 20 mg PO DAILY 30 days sennosides (Natural Senna Laxative) 8.6 mg PO BEDTIME Shower Chair (Chair, shower) [place] rolling shower chair with hole to also be used as a commode Tobacco use date assessed: 04/05/24 Fall risk assessment: 2 + Falls in past year Last assessed Fall Risk: 04/05/24 Dental Screening Dental Screen Date: 04/05/24 Did you have a dental visit in the last 12 months?: Yes Did you have a dental problem in the last 6 months where you did not have access to dental care?: No Was dental information given to patient?: No HPI HPI Comments History of Present Illness Details 68-year-old female, accompanied by her luke rivera, presents for an extended physical exam. She admits to taking her medications as prescribed without adverse reactions. Acute issue(s) - None Past Medical History - torticollis, HTN, HLD, osteopenia, TERI on CPAP, respiratory failure, PAC, PVC, CVA, seizure, brain tumor s/p chemo and radiation, frequent vaginal candidiasis and UTI Social History - Nonsmoker. Does not vape. Does not dri nk. Denies recreational drug use - Has been making healthy dietary choice s. Walks frequently. Generally sleep well Health maintenance - Last eye exam was with [facility] in 10/15/2023. She will sign a release for her PCP to obtain her ophthalmology record - Last dental visit was a year ago; nate uraged to schedule an appointment with his dentist for routine dental care - Last Tdap was in 05/06/2010; received T dap vaccine today - Up-to-date on the influenza vaccine - Up-to-date on the pneumonia vaccines - Unsure of shingles vaccines status. Pedro Luis tejeda will review patient health record and update as needed. She may get the vaccine from her local pharmacy - Last pap smear test 4.5 years ago: nor mal. She no longer performs Pap smear test - Last mammogram was 5 years ago. [facility] ra wheeler was unable to perform mammogram in 09/2022 d/t torticollis and informed patient they will contact her for MRI breast cancer screening; however, she has not been contacted - She notes that her last colonoscopy wa s over 10 years ago: normal. She was sent a Cologuard kit by [facility]; she will collect and send sample. - Last dexa scan was on 03/22/2023: Osteo penia. Encouraged to take Vitamin D3 as prescribed Specialists - None PFSH Medical History Seizure Brain cancer Metabolic alkalosis with respiratory acidosis Encounter for palliative care Sebaceous cyst of axilla Essential hypertension PVC (premature ventricular contraction) PAC (premature atrial contraction) Torticollis, acquired UTI (urinary tract infection), bacterial Bladder incontinence Unspecified urinary incontinence Abscess Symptomatic PVCs Physical exam, annual Stroke Insomnia Closed fracture of fibula with routine healing Fracture of distal end of fibula Right ankle pain HTN (hypertension) DVT (deep venous thrombosis) Surgical History Hx of section Hx of tubal ligation H/O craniotomy Family History Mother Diabetes Father Heart disease Family/Other Breast cancer Brain cancer Diabetes Social History Household Members: Unknown / Unable to assess Housing: Unknown / Unable to assess Housing Other:: Lives with Spouse Unable to assess alcohol history related to: Unable to respond Alcohol intake: never Comment: family in room Patient Tobacco Use Status: Never used Tobacco e-Cigarette/Vaping Use: Never Used Second Hand Smoke Exposure: No Advance Directives Date on File: 02/12/20 service: No Current occupational status: retired and disabled Cognitive needs: Yes Hearing needs: No Vision needs: Yes Female Reproductive History Menstrual Age of Menarche: 9 Questionnaire PHQ-9 Over the last 2 weeks, how often have you been bothered by any of the following problems? 1. Little interest or pleasure in doing things: not at all 2. Feeling down, depressed, or hopeless: not at all 3. Trouble falling or staying asleep, or sleeping too much: more than half the days 4. Feeling tired or having little energy: several days 5. Poor appetite or overeating: not at all 6. Feeling bad about yourself - or that you are a failure or have let yourself or your family down: not at all 7. Trouble concentrating on things, such as reading the newspaper or watching television: not at all 8. Moving or speaking so slowly that other people could have noticed. Or the opposite - being so fidgety or restless that you have been moving around a lot more than usual: not at all 9. Thoughts that you would be better off or of hurting yourself in some way: not at all Total score: 3 Depression Screening Interpretation: Negative Depression Screening Done: Yes 56187 - PHQ-9 Billing: Yes Source: Developed by Drs. Horace Pineda, Daya Durbin, Romero Cat and colleagues, with an educational loren from [employer]. Thrive Questionnaire Date Thrive assessed: 04/05/24 I am a: Parent/Caregiver What is your living situation today?: I have a steady place to live Within the past 12 months, did the food you bought not last and you didn't have the money to get more?: Never true Within the past 12 months, did you worry whether your food would run out before you got money to buy more?: Never true Do you have trouble paying for medicines?: No Do you have trouble getting transportation to medical appointments?: No Do you have trouble paying your heating and electricity bill?: No Do you have trouble taking care of your child, family member or friend?: No Do you have trouble with day-to-day activities such as bathing, preparing meals, shopping, managing finances, etc.?: Yes Are you currently unemployed and looking for a job?: Yes Are you interested in more education?: No Please select the resources that you would like help with: None Currently or been in a relationship where the following occur: No concerns reported THRIVE Score: 0 AUDIT C Alcohol Use Questionnaire (AUDIT-C) 1. How often do you have a drink containing alcohol?: Never 3. How often do you have six or more drinks on one occasion?: Never Total Score: 0 Score Reviewed/Action Taken: Yes MADAY-7 AMB Questionnaire MADAY-7 Date MADAY - 7 assessed: 04/05/24 Feeling nervous, anxious, or on edge: 0 = Not at all Not being able to stop or control worryin = Not at all Worrying too much about different things: 0 = Not at all Trouble relaxin = Not at all Being so restless that it is hard to sit still: 0 = Not at all Becoming easily annoyed or irritable: 0 = Not at all Feeling afraid as if something awful might happen: 0 = Not at all Total MADAY-7 score (0-4 normal; 5-9 mild; 10-14 moderate; 15-21 severe): 0 Source: Developed by Drs. Horace Pineda, Daya Durbin, Romero Cat and colleagues, with an educational loren from [employer]. MADAY-7 Assessment Billing MADAY-7 Assessment Tool: MADAY-7 Assessment 45285 Review of Systems Const Details: Denies chills, Denies fatigue, Denies fever(s), Denies headache(s) and Denies weakness HEENT Denies change in vision, Denies dizziness, Denies headache(s), Denies hearing loss, Denies nasal congestion, Denies sinus pain, Denies sinus pressure and Denies sore throat Card Denies chest pain, Denies lightheadedness, Denies dyspnea and Denies other (palpitations) Resp Denies cough, Denies dyspnea and Denies wheezing GI Denies abdominal pain, Denies melena, Denies hematochezia, Denies change in bowel habits, Denies dyspepsia and Denies nausea Denies hematuria and Denies dysuria Musc Denies abnormal gait, Denies myalgias, Denies arthralgias, Denies numbness and Denies tingling Skin/Breast Denies rash, Denies unusual bruising and Denies wounds Neuro Denies abnormal gait, Denies dizziness, Denies headache(s), Denies memory loss, Denies numbness, Denies Sensory deficit (Neuro), Denies tingling and Denies weakness Psych Denies anxiety, Denies depression and Denies memory loss Endo Denies cold intolerance, Denies fatigue, Denies heat intolerance, Denies polydipsia and Denies polyuria Franky/Lymph Denies easy bleeding and Denies easy bruising Aller/Immun Denies wheezing Physical exam (Primary Care) Vital Signs: Last Vital Signs Temp 98.0 F 04/05/24 10:22 Pulse 73 04/05/24 10:22 Resp 14 04/05/24 10:22 BP 120/70 04/05/24 10:22 Pulse Ox 99 04/05/24 10:22 Oxygen Delivery Method Room Air 04/05/24 10:22 BMI result Body Mass Index 24.7 Tobacco/Smoking Status: Tobacco use Status Tobacco use date assessed 04/05/24 04/05/24 10:25 Patient Tobacco Use Status Never used Tobacco 04/05/24 10:25 e-Cigarette/Vaping Use Never Used 04/05/24 10:25 PHQ-9: PHQ-9 Score PHQ-9: Total score 3 04/08/24 11:23 Depression Screening Interpretation: Negative Thrive Assessment: Date of Thrive Assessment Date Thrive assessed 04/05/24 04/05/24 10:25 Currently or been in a relationship where the following occur: No concerns reported Const Other: Const Other: General: no acute distress, well developed, alert and awake Nutritional Appearance: well nourished Orientation/consciousness: patient oriented x3 HENMT Head: Yes normocephalic and Yes atraumatic Ears: hearing grossly normal bilaterally and TM's normal bilaterally General nose exam: Normal external nose present and Normal nares present Mouth: Normal oral and palatal mucosa present and moist mucous membranes Teeth and gingiva: dentition normal Throat: Yes oropharynx normal Eyes Pupils: Equal, round and reactive pupils present and Pupil accommodation reflex normal EOM: EOMs intact bilaterally Neck Neck: Yes normal visual inspection, Yes no lymphadenopathy and Yes trachea midline Thyroid: Thyroid normal Carotids: no bruits Lymphatic: no lymphadenopathy noted Torticollis with significant stiffness of the right side of her neck Chest Chest palpation & inspection: normal inspection of the chest Resp Effort & Inspection: normal respiratory effort Auscultation: clear to auscultation bilaterally Cardio Rate: regular rate Rhythm: regular rhythm Heart sounds: S1 normal heart sound present, S2 normal heart sound present, no gallops, no murmurs and no rubs Bruits: no abdominal aortic bruits and no carotid bruits GI Palpation (GI): No Abdominal aortic bruit present, Soft to palpation, nontender, No hepatosplenomegaly present and No Rebound tenderness present Auscultation: normal bowel sounds General: Yes no CVA tenderness Back/Spine/Pelvis Back: no CVA tenderness Cervical Spine: cervical ROM abnormal and No Cervical spine tenderness Thoracic/Lumbar Spine: thoraco-lumbar ROM normal, No pain with thoraco-lumbar ROM, No thoracic spinal tenderness and No lumbar spinal tenderness Skin General: warm and dry. Normal skin color. Normal skin turgor Lesions: no lesions Rashes: no rashes Trauma: no lacerations or abrasions Wounds: no wounds Nails: normal Neuro General: patient oriented x3, unsteady gait, and CN's II-X intact bilaterally, abnormal CN II Cranial nerves: Yes Equal, round and reactive pupils present Cognition (Neuro): normal cognition Gait exam (Neuro): Unsteady gait present Motor exam (neuro): 4/5 motor strength present throughout Sensory Exam: No Sensory deficit (Neuro) Deep tendon reflexes (DTR's): Test not performed d/t BLE on the floor during exam Extrem General: Yes normal to inspection, No edema and No calf tenderness Psych Appearance: grossly normal Affect: normal affect Attitude: cooperative Thought process: Normal thought process present Immunizations Boostrix Tdap 2.5 Lf unit-8 mcg-5 Lf/0.5 mL intramuscular syringe Performing Provider: Neto Aguirre CNP Performing Location: [facility] Administered by: Liliana Blanco CMA on 04/05/24 11:26 Dose Route Admin Location Dispensed Lot Number Expiration Date NDC Internal Controls Consultant 0.5 mL IM Left Deltoid 0.5 mL [id number] 05/11/26 [id number] [employer]LA[employer]OSMITH[employer] VIS Given Date VIS Provided VIS Publication Date 04/05/24 Single Vaccine 20 Eligibility Eligibility Date Funding Source Not [facility] Eligible 04/05/24 Private Coding Level of Care Code Est Pt Prev Care >65y(53993) Diagnoses Encounter for routine adult physical exam with abnormal findings Z00.01 Essential hypertension I10 Hypertension type: essential hypertension Osteopenia M85.80 Breast cancer screening by mammogram Z12.31 Colon cancer screening Z12.11 Laboratory tests ordered as part of a complete physical exam (CPE) Z00.00 Additional Codes MADAY-7 Assessment Billing - MADAY-7 Assessment Tool: MADAY-7 Assessment 39242 ([id number]) PHQ-9 - 33928 - PHQ-9 Billing: Yes ([id number]) Assessment & Plan Assessment & Plan (1) Encounter for routine adult physical exam with abnormal findings: Code(s): Z00.01 - Encounter for general adult medical examination with abnormal findings Category: Medical Plan: Significant physical restrictions due to torticollis. Gait is steady. Uses a walker for short distances and wheelchair for long distances. Continue current treatment regimen. Healthy diet and routine exercise encouraged. Advised to get lab work done 2-3 days before next visit. Follow-up in 4 months for hypertension and labs reviewed or sooner with symptoms or concerns. Verbalized understanding and agreed with treatment plan. (2) HTN (hypertension): Code(s): I10 - Essential (primary) hypertension Category: Medical Qualifiers: Hypertension type: essential hypertension Qualified Code(s): I10 - Essential (primary) hypertension Plan: Blood pressure is controlled, 120/70. Continue current treatment regimen. Follow-up in 4 months. Verbalized understanding and agreed with treatment plan. (3) Osteopenia: Code(s): M85.80 - Other specified disorders of bone density and structure, unspecified site Category: Medical Plan: Last dexa scan was on 03/22/2023. Continue to take vitamin D3 as prescribed. (4) Breast cancer screening by mammogram: Code(s): Z12.31 - Encounter for screening mammogram for malignant neoplasm of breast Category: Medical Plan: Last mammogram was 5 years ago. [facility] radiology was unable to perform mammogram in 09/2022 d/t torticollis and informed patient they will contact her for MRI breast cancer screening; however, she has not been contacted. Message sent to the [place] to contact [facility] radiology for MRI breast cancer screening. (5) Colon cancer screening: Code(s): Z12.11 - Encounter for screening for malignant neoplasm of colon Category: Medical Plan: Last colonoscopy was over 10 years ago: normal. She was sent a Cologuard kit by [facility]; she will collect and send sample for testing. (6) Laboratory tests ordered as part of a complete physical exam (CPE): Code(s): Z00.00 - Encounter for general adult medical examination without abnormal findings Category: Medical Plan: Fasting labs ordered as part of a complete physical exam. Advised to fast for at least 10 hours before getting labs drawn. May drink water Verbalized understanding and agreed with treatment plan. Orders: Orders Complete Blood Count Auto Diff 04/05/24 Z00.00 - Encounter for general adult medical examination without abnormal findings Comprehensive [place]. Panel Fast 04/05/24 Z00. - Encounter for general adult medical examination without abnormal findings TSH reflex Free T4 04/05/24 Z00. - Encounter for general adult medical examination without abnormal findings UA CC w/rflx Micro + Cult 04/05/24 Z00. - Encounter for general adult medical examination without abnormal findings Vitamin D 25-OH Total 04/05/24 Z00.00 - Encounter for general adult medical examination without abnormal findings Lipid Panel 04/05/24 Z00.00 - Encounter for general adult medical examination without abnormal findings Microalbumin, Random (w Creat) 04/05/24 Z00. - Encounter for general adult medical examination without abnormal findings TDaP Immunization 04/05/24 Z23 - Encounter for immunization
[2024-04-05 10:22] VITALS: BP 120/70; PULSE 73; RESP 14; TEMP 36.7; O2SAT 99; BMI 24.7
--- OUTSIDE RECORDS SUMMARY | 2024-04-05 10:32 | XMS_ITS | Clinical Summary ---
Author Organization [facility] Address [address] [place] [address] Care Team Providers Care Conventions Assistant Name Role Phone Unknown Primary Care Provider [phone] Social History Tobacco Use Types Packs/Day Years Used Date Smoking Tobacco: Never Assessed Sex and Gender Information Value Date Recorded Sex Assigned at Not on file Gender Identity Not on file Sexual Orientation Not on file Plan of Treatment Health Maintenance Due Date Last Done Comments Hepatitis C Virus Screening 1954 DTaP/Tdap/Td Vaccines (1 - Tdap) 1973 Mammogram 1994 Colonoscopy 05/16/1999 Pneumococcal Vaccines 50+ (1 of 1 - PCV) 2004 Zoster (Shingles) Vaccine (1 of 2) 2004 DXA Bone Density (Females,Ag es 65 and older) 05/16/2019 Influenza Vaccine 09/21/2023 COVID-19 Vaccine ( - 2023-2 5 season) 2023 RSV Vaccine 60 years and old er and Patients (1 - 1-dose 75+ series) 2029 Hepatitis B Vaccines Aged Out No long er eligible based on patient's age to complete this topic Care Teams Conventions Assistant Relationship Specialty Start Date End Date Unknown Unknow Provider Address PCP - General 01/03/22
--- OUTSIDE RECORDS SUMMARY | 2024-04-05 10:32 | XMS_ITS | Clinical Summary ---
Author Organization [employer] Address [address] [place] [address] Care Team Providers Care Plaster Helper Name Role Phone Unavailable Primary Care Provider Unavailabl e Social History Tobacco Use Types Packs/Day Years Used Date Smoking Tobacco: Never Assessed Comments Unknown Sex and Gender Information Value Date Recorded Sex Assigned at Female 12/20/2021 10:16 AM EDT Legal Sex Female 10:16 AM EDT Gender Identity Not on file Sexual Orientation Not on file Plan of Treatment Health Maintenance Due Date Last Done Comments CT Colonography 1954 Colonoscopy 1954 Colorectal Cancer Screening 1954 Depression Screening 1954 FIT DNA/Cologuard 1954 FIT 1954 FOBT 1954 Sigmoidoscopy 1954 Alcohol/Substance Use Screening 1966 Tobacco Screening 1966 DTaP/Tdap/Td Vaccines (1 - Tdap) 1973 Mammogram 1994 Pneumococcal Vaccine: 50+ Ye ars (1 of 1 - PCV) 2004 Zoster Vaccines (1 of 2) 2004 COVID-19 Vaccine ( - 2023-2 5 season) 2023 Influenza Vaccine (#1) 2023 RSV Patients and Pa tients Aged 60 years or older (1 - 1-dose 75+ series) 2029 HIB Vaccines Aged Out No longer eligi ble based on patient's age to complete this topic HPV Vaccines Aged Out No longer eligi ble based on patient's age to complete this topic Hepatitis A Vaccines Aged Out No long er eligible based on patient's age to complete this topic Hepatitis B Vaccines Aged Out No long er eligible based on patient's age to complete this topic IPV Vaccines Aged Out No longer eligi ble based on patient's age to complete this topic Meningococcal Vaccine Aged Out No daniel medhat eligible based on patient's age to complete this topic RSV under 20 months Aged Out No longe r eligible based on patient's age to complete this topic Rotavirus Vaccines Aged Out No longer eligible based on patient's age to complete this topic
--- OUTSIDE RECORDS SUMMARY | 2024-04-05 10:32 | XMS_ITS | Continuity of Care Document ---
Author Organization [facility] Address [address] [place] [address] Phone Care Team Providers Care Contact Lens Blocker Name Role Phone Unavailable Unavailable Unavailable Advance Directives Directive Yes / No Effective Date File Name No Information Encounters Encounter Description Practice Location Reason(s) For Visit Diagnoses Date Provider Providers Copied on Encounter [facility], [address], [place], [place], [id number], [place] tel:[phone] [address] [facility] [facility] No Information No Information Family [...]
--- OUTSIDE RECORDS SUMMARY | 2024-04-05 10:32 | XMS_ITS | Clinical Summary ---
Author Organization 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) Social History Tobacco Use Types Packs/Day Years Used Date Smoking Tobacco: Never Smokeless Tobacco: Never Comments Unknown Sex and Gender Information Value Date Recorded Sex Assigned at Not on file Legal Sex Female 11:44 PM EST Gender Identity Not on file Sexual Orientation Not on file Obstetrics History Last Filed Vital Signs Vital Sign Reading Time Taken Comments Blood Pressure - - Pulse - - Temperature - - Respiratory Rate - - Oxygen Saturation - - Inhaled Oxygen Concentration - - Weight 74.8 kg (165 lb) 04/29/2022 2:13 PM EST Height 167.6 cm (5' 6 ) 04/29/2022 2:13 PM EST Body Mass Index 26.63 04/29/2022 2:13 PM EST Plan of Treatment Health Maintenance Due Date Last Done Comments Breast Cancer Screening 1954 DTaP,Tdap,and Td Vaccines (1 - Tdap) 1973 Pneumococcal Vaccine: 50+ Ye ars (1 of 1 - PCV) 2004 Zoster Vaccines (1 of 2) 2004 Colorectal Cancer Screening: Colonoscopy 01/23/2022 Depression Screening 01/23/2022 Falls Risk Assessment 01/23/2022 Hepatitis C Screening 01/23/2022 Osteoporosis Screening (Bone Density Screening) 01/23/2022 Social Influencers of Health Screening 01/23/2022 COVID-19 Vaccine (1 - 2023-2 5 season) 2023 Influenza Vaccine (#1) 2023 RSV Immunization Patients 60 + Years Old (1 - 1-dose 75+ series) 2029 HIB [...] on patient's age to complete this topic MMR Vaccines Aged Out No longer eligi ble based on patient's age to complete this topic Meningococcal ACWY Vaccine Aged Out N o longer eligible based on patient's age to complete this topic Meningococcal B Vacine Aged Out No lo nger eligible based on patient's age to complete this topic RSV Immunization Patients Un berna 20 months Aged Out No longer eligible b ased on patient's age to complete this topic Varicella Vaccines Aged Out No longer eligible based on patient's age to complete this topic Advance Directives Documents on File Type Date Recorded Patient Psychiatry Adult Physician Expl anation Health Care Decision (hx) 03/13/2018 AD FALK DIRECTIVE Health Care Decision (hx) 03/13/2018 AD FALK DIRECTIVE Health Care Decision (hx) 03/13/2018 AD FALK DIRECTIVE Care Teams Refrigerator Cabinetmaker Relationship Specialty Start Date End Date Nicole Denny NP [address] [place] [address] [address] [place] [address] PCP - General 04/29/22
== END 2024-04-05 11:30 | disposition home or self-care (01) ==
PROVIDERS: PCP Nurse Practitioner Family; Visit Provider Nurse Practitioner Family
DX: Z23 Encounter for immunization (principal)

== ENCOUNTER → 2024-04-05 09:55 | Outpatient (BNVA) | payer OTHER, SELFPAY | PROVIDERS: PCP Nurse Practitioner Family; Visit Provider Nurse Practitioner Family | DX: Z00.01 Encounter for general adult medical examination with abnormal findings (principal); Z23 Encounter for immunization; I10 Essential (primary) hypertension; M85.80 Other specified disorders of bone density and structure, unspecified site | CPT/HCPCS: 90471; 90715; 96127; 99397 ==

== ENCOUNTER → 2024-05-06 11:06 | Outpatient (BNV) | payer OTHER, SELFPAY | PROVIDERS: PCP Nurse Practitioner Family; Visit Provider Internal Medicine | DX: Z12.39 Encounter for other screening for malignant neoplasm of breast (principal); Z80.3 Family history of malignant neoplasm of breast | CPT/HCPCS: 77049 ==

== ENCOUNTER 2024-05-06 11:09 | Outpatient (REF) | payer OTHER, SELFPAY ==
[2024-05-06] MEDS: gadobutroL 10 ML VIAL IVPUSH (13:19)
== END 2024-05-06 11:10 | disposition home or self-care (01) ==
LOC: HO.MRI 11:09
PROVIDERS: PCP Nurse Practitioner Family; Visit Provider Nurse Practitioner Family
DX: Z12.39 Encounter for other screening for malignant neoplasm of breast (principal)
CPT/HCPCS: 77049; A9585

== ENCOUNTER 2024-05-25 18:21 | Emergency (ER) | payer OTHER, SELFPAY ==
--- NOTE | ~2024-05-25 | CT_ITS ---
CLINICAL HISTORY: question aphasia, out of window for acute stroke CT HEAD WITHOUT CONTRAST. CT ANGIOGRAPHY HEAD AND NECK WITH CONTRAST. 3D POSTPROCESSING. Comparison: CT/SC/SR - CT ANGIO HEAD NECK STROKE - 10/01/23 14:46 EDT Findings: HEAD CT: Study is limited secondary to poor patient head/neck positioning and motion artifact. No definite intracranial hemorrhage or midline shift. Stable atrophy and white matter changes. Redemonstration of right frontal craniotomy with underlying encephalomalacia. Intracranial arteriosclerosis. No sinus or mastoid fluid. Visualized orbits: No acute abnormalities. HEAD AND NECK CTA: Conventional arch anatomy with patent branch origins. Patent vertebral arteries with no aneurysm or dissection. Mild calcific plaque in the bilateral carotid bifurcations and proximal ICAs with no occlusion or flow-limiting stenosis. No aneurysm or dissection. Grossly patent intracranial ICAs with no occlusion or flow-limiting stenosis. Vertebrobasilar system, cerebellar arteries and posterior cerebral arteries are grossly patent. Anterior circulation is grossly patent. No definite enhancing intracranial or cervical mass. Probable multinodular thyroid gland. Lung apices are clear. Advanced degenerative changes in the cervical spine. IMPRESSION: 1. Image degradation secondary to motion artifact and suboptimal positioning. 2. No definite acute intracranial process. 3. No definite large vessel occlusion or flow-limiting stenosis. This document has been electronically signed by: Sarah Rivera DO on 05/25/2024 21:17:06
--- NOTE | 2024-05-25 18:26 | ECG_ITS ---
Test Reason : STROKE Blood Pressure : */* mmHG Vent. Rate : 79 BPM Atrial Rate : 79 BPM P-R Int : 186 ms QRS Dur : 74 ms QT Int : 360 ms P-R-T Axes : 58 17 44 degrees QTcB Int : 412 ms Normal sinus rhythm Normal ECG When compared with ECG of 01-Oct-2023 15:10, No significant change was found Referred By: Amie Muller Electronically Signed By: MICAELA OROZCO
[2024-05-25 18:36] VITALS: BP 148/79; BP 176/78; PULSE 80; RESP 16; TEMP 36.9; O2SAT 98; O2SAT 99; BMI 27.0
[2024-05-25 18:41] VITALS: BP 148/79; PULSE 80; RESP 16; TEMP 36.9; O2SAT 98
--- NOTE | 2024-05-25 18:47 | PC.NURSE ---
Pt comes to ED today via EMS from home. EMS calls stroke alert on Pt due to report from of new onset shakiness, weakness, difficulty eating, and aphasia. Per EMS reports last well known 2029 on 05/24/24. Provider evaluated Pt at time of arrival.. verbal orders given that stroke alert will be stopped. Order given to bring Pt to exam room for a more thorough evaluation. VSS 18g to LAC placed by EMS. EKG in progress. Care of Pt relinquished to MERCEDES Valenzuela at this time. Shift report given.
--- NOTE | 2024-05-25 18:49 | ED_ITS ---
HPI - Weakness General Chief complaint: Weakness Stated complaint: stroke alert/ ams, LNW 10p last night Time Seen by Provider: 05/25/24 18:26 Source: patient and EMS Limitations: no limitations History of Present Illness ED Provider: Amie Muller PA-C HPI Narrative: 69-year-old female with a history of prior brain cancer now status post craniotomy for tumor resection, with the subsequent development of seizure disorder now on Keppra, chronic torticollis, frequent UTIs, hypertension, hyperlipidemia, DVT on rivaroxaban who presents as suspect stroke alert. Last known well time 10:30 p.m. yesterday on May 24. Patient woke with generalized weakness, developing ?shakiness of her hands during the day. Patient was too weak to feed herself. Now the family is at bedside, they state that she was ?mumbling under her breath?. They feel she may have had a breakthrough seizure, this presentation has occurred when she has seizure activity. There was no witnessed seizure activity. One of the patient's caregivers admits that she did not have her Keppra today, they forgot to medicate her. When the patient's daughter found out, she did medicate her mother. Per family, the patient's symptoms began to improve pre arrival after being medicated with her keppra. Related Data Home Medications ?Medication ?Instructions ?Recorded ?Confirmed multivitamin 1 tab PO DAILY 03/30/22 04/05/24 Previous Rx's ?Medication ?Instructions ?Recorded miscellaneous medical supply #240 ea 10/05/22 cholecalciferol (vitamin D3) 50 50 mcg PO DAILY 90 days #90 tabs 07/10/23 mcg (2,000 unit) tablet Shower Chair (Chair, shower) #1 ea 10/25/23 automatic blood pressure cuff #1 ea 10/25/23 sennosides 8.6 mg tablet (Natural 8.6 mg PO BEDTIME constipation #90 12/11/23 Senna Laxative) tabs rivaroxaban 20 mg tablet (Xarelto) 20 mg PO DAILY 30 days #30 tabs 01/08/24 amlodipine 5 mg tablet 5 mg PO DAILY 90 days #90 tabs 04/22/24 atorvastatin 40 mg tablet 40 mg PO DAILY #90 tabs 04/25/24 levetiracetam 100 mg/mL oral 1,000 mg (10 mL) PO BID 90 days 04/25/24 solution #1,800 mL aspirin 81 mg tablet,delayed 81 mg PO DAILY #90 tabs 04/29/24 release lisinopril 20 mg tablet 20 mg PO DAILY #90 tabs 05/10/24 Allergies Allergy/AdvReac Type Severity Reaction Status Date / Time apple [Apple] Allergy Severe THROAT Verified 05/25/24 18:39 SWELLING pollen extracts [POLLEN] Allergy Intermediate SNEEZING Verified 05/25/24 18:39 COUGHING ALOT kiwi AdvReac Intermediate VOMITING Verified 05/25/24 18:39 [Kiwi (Actinidia Chinensis)] avocado [Avocado] AdvReac Mild VOMITING Verified 05/25/24 18:39 Review of Systems 2 Review of Systems: Yes all other systems are reviewed and are negative Constitutional: Constitutional: Reports fatigue, Denies fever(s) and Reports weakness Cardiovascular: Cardiovascular: Denies chest pain and Denies dyspnea Respiratory: Respiratory: Denies cough and Denies dyspnea Gastrointestinal: Gastrointestinal: Denies abdominal pain, Denies nausea and Denies vomiting Neurologic: Denies Abnormal speech present and Reports weakness Endocrine: Endocrine: Reports fatigue PMFSH Past Medical History Attestation statement: The following information was validated with the patient. Medical History Seizure Brain cancer Metabolic alkalosis with respiratory acidosis Encounter for palliative care Sebaceous cyst of axilla Essential hypertension PVC (premature ventricular contraction) PAC (premature atrial contraction) Torticollis, acquired UTI (urinary tract infection), bacterial Bladder incontinence Unspecified urinary incontinence Abscess Symptomatic PVCs Physical exam, annual Stroke Insomnia Closed fracture of fibula with routine healing Fracture of distal end of fibula Right ankle pain HTN (hypertension) DVT (deep venous thrombosis) Surgical History Hx of section Hx of tubal ligation H/O craniotomy Family History Family History Mother Diabetes Father Heart disease Family/Other Breast cancer Brain cancer Diabetes Social History Social History Household Members: Unknown / Unable to assess Housing: Unknown / Unable to assess Housing Other:: Lives with Spouse Unable to assess alcohol history related to: Unable to respond Alcohol intake: never Comment: family in room Patient Tobacco Use Status: Never used Tobacco Smoked in Last 30 Days: No e-Cigarette/Vaping Use: Never Used Second Hand Smoke Exposure: No Use of substances other than those prescribed or required for medical reasons: No Advance Directives: Yes Advance Directives on File: Yes Advance Directives Date on File: 02/12/20 Do you have a plan to hurt others: No Plan service: No Current occupational status: retired and disabled Cognitive needs: Yes Hearing needs: No Vision needs: Yes Physical Exam 2 Vital Signs: Vital Signs: Last Vital Signs Temp 98.4 F 05/26/24 00:00 Pulse 76 05/26/24 00:00 Resp 16 05/26/24 00:00 BP 161/70 H 05/26/24 00:00 Pulse Ox 97 05/26/24 00:00 O2 Del Method Room Air 05/26/24 00:00 BMI result Body Mass Index 27.0 Const: Other: Alert Orientation/consciousness: patient oriented x3 Neck: Other: wry neck to the right Resp: Effort & Inspection: normal respiratory effort Cardio: Other: Normal peripheral perfusion Skin: Other: Warm dry no rash Neuro: General: patient oriented x3, tone normal, moves all extremities, no focal motor deficits and CN's II-XI intact bilaterally Speech: No Abnormal speech present Extrem: Other: Strength equal in upper and lower extremities, globally weak, Moves all extremities independently against resistance Psych: Other: Cooperative NIH Stroke Scale Internal: Initial- Upon Arrival Level of Consciousness: Alert Level of Consciousness Questions: Answers both questions correctly Level of Consciousness Commands: Performs both tasks correctly Best Gaze: Normal Visual: No visual loss Facial Palsy: Normal Motor Arm (Right): No drift Motor Arm (Left): No drift Motor Leg (Right): No drift Motor Leg (Left): No drift Limb Ataxia: Absent Sensory: Normal Best Language: No aphasia Dysarthia: Normal Extinction and Inattention: No abnormality Score: 0 Medications Administered Discontinued Medications Generic Name Dose Route Start Last Admin Trade Name Freq PRN Reason Stop Dose Admin Sodium Chloride 500 mls @ 500 mls/hr 05/25/24 23:29 05/25/24 23:42 Ns IV 05/26/24 00:28 500 mls/hr .Q1H ONE Administration Iohexol 70 ml 05/25/24 20:24 05/25/24 20:24 Iohexol 350 Mg/Ml 100 Ml Infus..Btl IV 05/25/24 20:25 70 ml ONCE ONE Administration Medical Decision Making Medical Decision Making MDM Narrative: 69-year-old female with a history of prior brain cancer now status post craniotomy for tumor resection, with the subsequent development of seizure disorder now on Keppra, chronic torticollis, frequent UTIs, hypertension, hyperlipidemia, DVT on rivaroxaban who presents as suspect stroke alert. Last known well time 10:30 p.m. yesterday on May 24. Patient woke with generalized weakness, developing ?shakiness of her hands during the day. Patient was too weak to feed herself. Now the family is at bedside, they state that she was ?mumbling under her breath?. They feel she may have had a breakthrough seizure, this presentation has occurred when she has seizure activity. There was no witnessed seizure activity. One of the patient's caregivers admits that she did not have her Keppra today, they forgot to medicate her. When the patient's daughter found out, she did medicate her mother. Per family, the patient's symptoms began to improve pre arrival after being medicated with her keppra. Problem: Seizure disorder History: Per EMS , patient and family I have considered the following differential diagnoses: Breakthrough seizure, postictal phase, CVA, TIA, intracranial hemorrhage Plan: Patient's NIH scale is 0, I feel her presentation is most consistent with potential delirium, this could be a postictal phase. The patient's past medical history is complex with her brain cancer, she has also had TIAs in the past, she is out of the window for intervention, I will still order the scans. Also screening labs a urinalysis and an EKG. She was already medicated with her Keppra. Doubtful to be an intracranial hemorrhage, she has no objective neurologic deficits, she is not actively vomiting. We will screen a Keppra level. I have independently reviewed the following tests: Labs: No leukocytosis, not anemic, no electrolyte abnormality, urine not infected EKG: Normal sinus rhythm, rate of 79, no ischemic changes no ectopy QTC 412 CT angio head and neck:Conventional arch anatomy with patent branch origins. Patent vertebral arteries with no aneurysm or dissection. Mild calcific plaque in the bilateral carotid bifurcations and proximal ICAs with no occlusion or flow-limiting stenosis. No aneurysm or dissection. Grossly patent intracranial ICAs with no occlusion or flow-limiting stenosis. Vertebrobasilar system, cerebellar arteries and posterior cerebral arteries are grossly patent. Anterior circulation is grossly patent. No definite enhancing intracranial or cervical mass. Probable multinodular thyroid gland. Lung apices are clear. Advanced degenerative changes in the cervical spine. IMPRESSION: 1. Image degradation secondary to motion artifact and suboptimal positioning. 2. No definite acute intracranial process. 3. No definite large vessel occlusion or flow-limiting stenosis. Lab Data 05/25/24 19:12 05/25/24 19:12 Labs: Lab Results 05/25/24 05/25/24 Range/Units 19:12 23:51 WBC 9.5 (4.8-10.8) X10*3/uL RBC 4.90 (4.20-5.50) X10*6/uL Hgb 13.4 (12.0-16.0) g/dl Hct 41.6 (37.0-47.0) % MCV 84.9 (80.0-98.0) fL MCH 27.3 (27.0-33.0) pg MCHC 32.2 (31.0-35.0) g/dl RDW 13.9 (11.0-16.0) % Plt Count 244 (160-400) X10*3/uL MPV 10.0 (9.4-12.3) fL Immature Gran % (Auto) 0.3 (0.0-0.4) % Neut % (Auto) 78.1 H (45-73) % Lymph % (Auto) 15.2 L (20-40) % [place] % (Auto) 5.5 (2-11) % Eos % (Auto) 0.6 (0-4) % Baso % (Auto) 0.3 (0-2) % Lymph # (Auto) 1.4 (1.2-4.9) X10*3/uL [place] # (Auto) 0.5 (0.1-1.2) X10*3/uL Eos # (Auto) 0.1 (0.0-0.4) X10*3/uL Baso # (Auto) 0.0 (0.0-0.2) X10*3/uL Abs Immat Gran (auto) 0.03 (0.00-0.03) X10*3/uL Absolute Neuts (auto) 7.4 (2.0-8.3) x10*3/uL Absolute Nucleated RBC 0.000 (0.0-0.012) X10*3/uL Nucleated RBC % (auto) 0.0 (0.0-0.2) /100WBC Sodium 137 (135-145) mmol/L Potassium 4.1 D (3.3-5.1) mmol/L Chloride 105 (96-108) mmol/L Carbon Dioxide 23 (22-29) mmol/L Anion Gap 13 (12-20) BUN 14 (9-16) mg/dL Creatinine 0.68 (0.5-1.4) mg/dL Estim Creat Clear Calc 77.4 Estimated GFR > 60 Random Glucose 112 (60-115) mg/dL Calcium 8.6 (8.4-10.2) mg/dL Magnesium 2.2 (1.6-2.6) mg/dL Total Bilirubin 0.3 (0.0-1.0) mg/dL AST 24 (5-31) U/L ALT 22 (0-31) U/L Alkaline Phosphatase 115 (39-117) U/L Total Protein 7.1 (6.5-8.0) g/dL Albumin 3.8 (3.5-5.0) g/dL Urine Color Yellow Urine Appearance Clear Urine pH 7.5 (5.0-9.0) Ur Specific Bath >= 1.030 H (1.005-1.025) Urine Protein Trace (Neg-Trace) mg/dL Urine Glucose (UA) Negative (Negative) mg/dL Urine Ketones Negative (Negative) mg/dL Urine Blood Negative (Negative) Urine Nitrite Negative (Negative) Ur Leukocyte Esterase Negative (Negative) Discharge Plan Discharge Clinical Impression: Weakness Patient Disposition: Home, Self-Care Instructions: Weakness (ED) Additional Instructions: All of your screening labs were normal, the urine is not infected. There were no concerning changes on the EKG. The CT scans of your brain were normal as well, you are not having a stroke. It is suspect that you may have had a breakthrough seizure. Be sure to take your Keppra as directed. Follow up with your primary care provider this week. Prescriptions: No Action (DME) miscellaneous medical supply Misc See Rx Instructions .ROUTE .MEDSUPPLY Qty: 240 6RF Rx Instructions: Disposable Diaper-PullUps. size large 8x daily As directed, 30 day supply (DME) automatic blood pressure cuff adult See Rx Instructions .Route .MEDSUPPLY Qty: 1 0RF Rx Instructions: As directed (DME) Chair, shower Misc See Rx Instructions .Route Qty: 1 0RF Rx Instructions: Liberty rolling shower chair with hole to also be used as a commode Xarelto 20 mg tablet 20 mg PO DAILY 30 Days Qty: 30 3RF Rx Instructions: must administer with evening meal amlodipine 5 mg tablet 5 mg PO DAILY 90 Days Qty: 90 1RF levetiracetam 100 mg/mL solution 1,000 mg PO BID 90 Days Qty: 1800 1RF atorvastatin 40 mg tablet 40 mg PO DAILY Qty: 90 1RF aspirin 81 mg tablet,delayed release (DR/EC) 81 mg PO DAILY Qty: 90 1RF lisinopril 20 mg tablet 20 mg PO DAILY Qty: 90 0RF Protocol: Hold for SBP< HOLD for SBP < : 90 multivitamin Tablet 1 tab PO DAILY cholecalciferol (vitamin D3) 50 mcg (2,000 unit) tablet 50 mcg PO DAILY 90 Days Qty: 90 1RF sennosides [Natural Senna Laxative] 8.6 mg tablet 8.6 mg PO BEDTIME Qty: 90 3RF Print Language: Upper Sorbian
[2024-05-25 19:17] LABS: MANUAL DIFF FLAG NO
--- OUTSIDE RECORDS SUMMARY | 2024-05-25 19:17 | XMS_ITS | Clinical Summary ---
Author Organization [facility] Address [address] [place] [address] Care Team Providers Care Deep Submergence Vehicle Operator Name Role Phone Denny, Sonia Juan HERNANDEZ Primary Care Provider Surgical History Surgery Date Site/Laterality Comments OTHER SURGICAL HISTORY PROCEDURE: [place] CRANIEC TREPHINE BONE FLP BRAIN TUMOR SUPRTENTOR; COMMENT: history of craniotomy Medical History Medical History Date Comments Respiratory failure DX:Respirato ry failure (HCC) Essential hypertension DX:Essent ial hypertension Stroke (cerebrum) (CMS/HCC) DX:S troke (cerebrum) ([facility]) Social History Tobacco Use Types Packs/Day Years [...] Influencers of Health Screening 01/23/2022 COVID-19 Vaccine ( - 2023-2 5 season) 2023 Influenza Vaccine (Season Ended) 2024 RSV Immunization Adult Patie nts (1 - 1-dose 75+ series) 2029 HIB [...] Documents on File Type Date Recorded Patient Operator Technician Expl anation Health Care Decision (hx) 03/13/2018 AD FALK DIRECTIVE Health Care Decision (hx) 03/13/2018 AD FALK DIRECTIVE Health Care Decision (hx) 03/13/2018 AD FALK DIRECTIVE Care Teams Deep Submergence Vehicle Operator Relationship Specialty Start Date End Date Nicole Denny NP [address] [place] [address] [address] [place] [address] PCP - General 04/29/22
--- OUTSIDE RECORDS SUMMARY | 2024-05-25 19:17 | XMS_ITS | Data Portability ---
Author Organization [employer], [place] - [employer] Address [address] [place] [id number] Care Team Providers Care Assistant Professor Of Radiology Name Role Phone HIM CCA OTHER Assessment Encounter Date Assessment Date Assessment LastModified by Organization Details LastModified Time 09/14/2023 09/14/2023 I provided real -time medical direction via phone for this encounter and was available for additional phone-based assistance as needed. I have reviewed and agree with the Assessment and Plan as documented by the Nutrition Helper. Patient given the opportunity to ask questions. Our service contacted for an assessment of: HTN As per above, patient is followed by PCP for HTN. Is using a home cuff to take her BPs. She denies any symptoms and takes her medications as prescribed. Elevated last night and slightly this AM. Per diversity intern on the scene, VSS. No HTN. Impression: Essential HTN Plan: Advised that patient keep a record of readings at various times of the day for 2 weeks and f/u with her PCP to see if her medications need to be adjusted. Allergies: Reviewed and updated - NKDA PCP f/u: Please f/u with re: home BP pressure readings We discussed the diagnostic uncertainty of home visits and the risk associated with this. In this case, the patient and I felt this to be an acceptable and reasonable amount of risk given the benefit of avoiding an ED visit. We discussed the need to seek care urgently/emergent ly in the setting of any new or worsening serious symptoms Not available 09/14/2023 16:02:40 10/01/2023 10/01/2023 Patient transported to ED prior to my involvement in this case. I did not provide clinical services for this visit. pallfather Not available 10/01/2023 17:40:23 10/26/2023 10/26/2023 I have reviewed and agree with the Assessment and Plan as documented by the Nutrition Helper. I provided real-time medical direction via phone for this encounter, and was available for additional phone based assistance as needed. Patient seen for report of several months of L hip pain as well as report of abdominal pain today. AVSS and nontoxic appearing on exam with entirely nontender abdomen and no LE swelling, warmth, erythema or TTP per report. Has upcoming PCP appointment on Monday. Family denies hx of trauma. Given reassuring VS and no swelling or TTP on exam doubt VTE or significant intraabdominal pathology. Recommended trial of tylenol up to 1000mg TID and close follow up with PCP on monday. Family in agreement. pallfather Not available 10/26/2023 15:49:07 01/24/2024 01/24/2024 I provided real -time medical direction via phone for this encounter and was available for additional phone-based assistance as needed. I have reviewed and agree with the Assessment and Plan as documented by the Nutrition Helper. Patient given the opportunity to ask questions. Our service contacted for an assessment of: Possible UTI As per above, patient with dementia and unable to give history. This service called for assessment of possible urinary tract infection. Patient is unable to void spontaneously and is incontinent. Upon attempt to give urine sample the patient also had a bowel movement that was large and had significant contamination of the urine and skin with feces. The patient was wiped and is unable to give a clean-catch sample. Staff's only report urinary symptoms is foul-smelling urine. There are no other changes noted in the patient. Per diversity intern on the scene, vital signs are stable patient is afebrile. COVID and flu were obtained and are both negative. Labs obtained and reviewed. Of note COVID flu and labs obtained prior to discussion for workup. Unclear context for obtaining labs. Impression and plan: Fecal contamination of urine. This may explain staff's report of foul-smelling urine. There is no other specific complaints related to urinary tract infection. Patient appears well and at baseline. Labs are unrevealing and there is no context to blood draw. Flu and COVID are both negative. Red flags discussed. Allergies: Reviewed PCP f/u: We discussed the diagnostic uncertainty of home visits and the risk associated with this. In this case, the patient and I felt this to be an acceptable and reasonable amount of risk given the benefit of avoiding an ED visit. We discussed the need to seek care urgently/emergent ly in the setting of any new or worsening serious symptoms, particularly fever chills Not available 01/24/2024 20:38:44 05/25/2024 05/25/2024 Evaluation in th e field was performed by my diversity intern colleague, as noted above, I provided real-time direction and supervision for this visit. This is a 69yo F whose family requests evaluation for altered mental status. Apparently the patient was not acting like herself upon waking up at 0830. Specifics of that are unknown. Now, she has been weak and lethargic and not moving much. PE: General: Awake, lying on couch Respiratory: Chest rise equal bilat, no increased wob CV: Regular rate, normal peripheral perfusion Neuro: Facial droop, left sided weakness Impression: Altered mental status Left-sided weakness Facial droop Plan: -Medic concerned for CVA given pt's presentation. Called 911 upon his arrival to the home. -No testing or further evaluation performed by this service. Disposition: Transport to [facility] ED Not available 05/25/2024 18:48:20 Plan of Treatment Reminders Order Date Submit Date Provider Last Modified By Organization Details Last Modified Time Details Appointments Urgent Care 2024 05:50P M Emerald Louise MD Not available Not available Not available Lab BMP, serum or plasma [address] [facility], [address] [place] [address], [phone] 01/24/2024 21:09:31 Referral None recorded . Procedures None recorded . Surgeries None recorded . Imaging None recorded . Medication Orders None recorded . Patient TargetsNo targets recorded. Patient InstructionsNo instructions recorded. Reason for Referral None Reported. Results Created Date Observation Date Name Description Value Unit Range Abnormal Flag Note LastModifiedBy Organization Detail LastModifiedTime Result Notes None recorded. Medical Equipment None Reported. Allergies No known drug allergies Medications Name Sig Start Date Stop Date Status Note LastModified by Organization Details LastModified Time mm-brief/sheeba per*xlg each active Not Available Not Available Not Available poise*pads active Not Available Not Av ailable Not Available atorvastatin 40 mg tablet TAKE 1 TABLET BY MOUTH EVERY DAY active Not Available Not Available No t Available nystatin 100,000 unit/mL oral suspension GIVE 1 ML BY MOUTH EVERY DAY FOR 10 DAYS *SWISH & SWALLOW* active Not Available Not Available No t Available cefuroxime axetil 250 mg tablet TAKE 1 TABLET BY MOUTH TWICE A DAY FOR 7 DAYS active Not Available Not Available No t Available cefpodoxime 200 mg tablet TAKE 1 TABLET BY MOUTH EVERY 12 HOURS FOR 5 DAYS active Not Available Not Available N ot Available fluconazole 150 mg tablet PLEASE SEE ATTACHED FOR DETAILED DIRECTIONS active Not Available Not Available N ot Available amlodipine 5 mg tablet TAKE 1 TABLET BY MOUTH EVERY DAY active Not Available Not Available No t Available sulfamethoxa zole 800 mg-trimethop rim 160 mg tablet TAKE 1 TABLET BY MOUTH EVERY 12 HOURS FOR 5 DAYS active Not Available Not Available N ot Available aspirin 81 mg tablet,delay ed release TAKE 1 TABLET BY MOUTH EVERY DAY active Not Available Not Available No t Available Miconazole-7 2 % vaginal cream USE 1 APPFUL VAGINALLY BEDTIME FOR 7 DAYS active Not Available Not Available No t Available phenazopyrid ine 100 mg tablet TAKE 1 TABLET BY MOUTH THREE TIMES A DAY NEEDED FOR PAIN FOR 2 DAYS active Not Available Not Available N ot Available baclofen 10 mg tablet TAKE 1 TABLET BY MOUTH EVERY DAY IN THE EVENING active Not Available Not Available No t Available oseltamivir 75 mg capsule TAKE 1 CAPSULE BY MOUTH TWO TIMES A DAY FOR 3 DAYS active Not Available Not Available N ot Available docusate sodium 100 mg capsule TAKE 1 CAPSULE BY MOUTH AT BEDTIME active Not Available Not Available No t Available hydrochlorot hiazide 25 mg tablet TAKE 1 TABLET BY MOUTH EVERY DAY active Not Available Not Available No t Available amoxicillin 875 mg-potassium clavulanate 125 mg tablet TAKE 1 TABLET BY MOUTH TWO TIMES A DAY FOR 10 DAYS active Not Available Not Available Not Available Ventolin HFA 90 mcg/actuatio n aerosol inhaler INHALE 2 PUFFS BY MOUTH EVERY 4 HOURS NEEDED active Not Available Not Available No t Available levetiraceta m 100 mg/mL oral solution TAKE 10 ML BY MOUTH DAILY AT 8:00AM FOR 30 DAYS active Not Available Not Available No t Available nitrofuranto in monohydrate/ macrocrystal s 100 mg capsule TAKE 1 CAPSULE BY MOUTH EVERY 12 HOURS FOR 5 DAYS MUST TAKE WITH FOOD active Not Available Not Available No t Available Vitamin D3 50 mcg (2,000 unit) tablet TAKE 1 TABLET BY MOUTH EVERY DAY active Not Available Not Available No t Available Xarelto 20 mg tablet 20 MG ORALLY DAILY AT 5 PM FOR 30 DAYS MUST ADMINISTER WITH EVENING MEAL active Not Available Not Available No t Available Vitals Date Recorded Body temperature Respiratory rate Oxygen saturation Oxygen saturation in Arterial blood by Pulse oximetry Body weight Heart rate Systolic blood pressure Diastolic blood pressure Provider Name and Address Organization Details Last Updated DateTime 4 97.1 [degF] 16 /min 97 % 97 % 34883.6 4 g 82 /min 134 mm[Hg] 78 mm[Hg] Not Available [facility] 4 15:55:54 Date Recorded Respiratory rate Heart rate Oxygen saturation Oxygen saturation in Arterial blood by Pulse oximetry Body temperature Systolic blood pressure Diastolic blood pressure Provider Name and Address Organization Details Last Updated DateTime 4 20 /min 78 /min 98 % 98 % 97.3 [degF] 130 mm[Hg] 80 mm[Hg] Not Available [facility] 4 15:05:47 Date Recorded Body height Body weight Respiratory rate Body temperature Oxygen saturation Oxygen saturation in Arterial blood by Pulse oximetry Heart rate Systolic blood pressure Diastolic blood pressure Provider Name and Address Organization Details Last Updated DateTime 4 162.56 cm 58074.6 g 14 /min 97.4 [degF] 97 % 97 % 106 /min 136 mm[Hg] 72 mm[Hg] Not Available [facility] 4 13:49:07 Date Recorded Respiratory rate Heart rate Oxygen saturation Oxygen saturation in Arterial blood by Pulse oximetry Systolic blood pressure Diastolic blood pressure Provider Name and Address Organization Details Last Updated DateTime 5 20 /min 103 /min 94 % 94 % 163 mm[Hg] 83 mm[Hg] Not Available [facility] 5 18:43:58 Social History None recorded. Functional Status None recorded. Mental Status None recorded. Family History Nothing Reported. Medical History No medical history recorded. Gynecological HistoryNo gynecological history recorded. Obstetrics History GPAL:G 0 P 0 0 0 0 Past Encounters Encounter ID Performer Location Encounter Start Date Encounter Closed Date Diagnosis/Indication Diagnosis SNOMED-CT Code Diagnosis ICD10 Code Diagnosis Note [id number] Katharina Richmond MD [facility] [address] [place] [id number] 10/19/2022 20:51:28 10/19/2022 23:56:47 Chronic neck pain 3110257910 107 M54.2 [id number] José Miguel Corbett MD [address] [address] 11/04/2022 13:57:27 11/07/2022 11:39:33 Vaginitis 48639983 N76.0 This 67-year-ol d female with a history of recurrent UTIs and vaginitis called [facility] complainin g of dysuria and vaginal irritation . Her U/A was negative. I suggested that she use her usual vaginitis cream and follow-up with her PCP. The patient agreed with this plan. [id number] Katharina Richmond MD [address] [address] 12/30/2022 17:02:43 01/02/2023 13:20:44 Urine: dark/concentrated [id number] R82.998 [id number] Arcelia Reyes MD [address] [phone] 12/31/2022 14:38:06 01/02/2023 14:30:37 Urinary symptoms [id number] R39.9 67 year old female who is nonverbal, being evaluated for foul smelling urine without any other symptoms. Patient was seen yesterday by [facility] - plan was to return to today to collect a urine sample. Family reports patient's previous UTI's have presented this way. Exam notable for normal vital signs. Presentati on consistent with foul smelling urine, possibly due to simple cystitis. Urine culture and urinalysis sent to lab. I have reviewed and agree with the assessment and plan as documented by the diversity intern. I provided real-time medical direction for this encounter and was immediatel y available to provide additional phone-base d assistance as needed. We discussed the diagnostic uncertaint y of home visits and associated risks. We discussed the need to seek care urgently/e mergently in the setting of any new or worsening symptoms. [id number] José Miguel Corbett MD [address] [phone] 01/24/2023 12:52:34 01/25/2023 10:24:39 Blood in urine 50631994 R31.9 This 67-year-ol d female who is incontinen t had a recent UTI. She was noted to have some blood in her underwear three days ago. She was unable to give a U/A today. I recommende d that they leave a container for a U/C to be sent to [facility]. She will follow up with her PCP. The patient agreed with this plan. [id number] MONROE TAYLOR MD [facility] [address] [place] [address] 0 07/14/2023 14:34:31 07/14/2023 21:27:46 Seizure disorder [id number] G40.909 [id number] Erich Gutierrez MD [facility] [address] [place] [address] 0 08/04/2023 21:10:48 08/06/2023 00:44:19 Wheezing 24888147 R06.2 Viral uppe r respiratory tract infection [id number] J06.9 [id number] Katharina Richmond MD [facility] [address] [place] [address] 0 09/14/2023 15:55:52 09/14/2023 16:30:24 Essential hypertension 18966831 I10 [id number] Neftali Aguero MD [facility] [address] [place] [address] 0 10/01/2023 17:36:22 10/01/2023 17:42:11 [id number] Neftali Aguero MD [facility] [address] [place] [address] 0 10/26/2023 14:58:04 10/26/2023 22:14:03 Pain of left hip joint [id number] 85148 M25.552 [id number] Katharina Richmond MD [facility] [address] [place] [address] 0 01/24/2024 13:43:05 01/25/2024 08:56:21 Irritant contact dermatitis caused by contact with urine and/or feces [id number] L24.A2 [id number] Emerald Louise MD [facility] [address] [place] [address] 0 05/25/2024 17:51:13 05/25/2024 18:48:51 Altered mental status 102965706 R41.82 Muscle weakness 63406387 R53.1 Weakness o f face muscles 32621637 R29.810 Health Concerns Section Related Observation LastModified by Organization Detai ls LastModified Time None Recorded Concern Status LastModified by Organization Details LastModified Time None Recorded Advance Directives Directive None Recorded Payers Encounter Date Sequence Insurance Name Policy Number Policy Bruno Covered Member ID Bruno Member ID Guarantor Name 09/14/2023 1 [facility] - DOS ON OR AFTER 2022 - DUAL ELIGIBLE - ALF OPTIONS AND ONE CARE (MEDICARE REPLACEMENT/ADV ANTAGE - HMO) Juani Ferro [id number] Juani Ferro 10/01/2023 1 [employer] - DOS ON OR AFTER 2022 - DUAL ELIGIBLE - ALF OPTIONS AND ONE CARE (MEDICARE REPLACEMENT/ADV ANTAGE - HMO) Juani Ferro [id number] Juani Ferro 10/26/2023 1 [facility] [employer] - DOS ON OR AFTER 2022 - DUAL ELIGIBLE - ALF OPTIONS AND ONE CARE (MEDICARE REPLACEMENT/ADV ANTAGE - HMO) Juani Ferro [id number] Juani Ferro 01/24/2024 1 [facility] - DOS ON OR AFTER 2022 - DUAL ELIGIBLE - ALF OPTIONS AND ONE CARE (MEDICARE REPLACEMENT/ADV ANTAGE - HMO) Juani Ferro [id number] Juani Ferro 05/25/2024 1 [facility] [employer] - DOS ON OR AFTER 2022 - DUAL ELIGIBLE - ALF OPTIONS AND ONE CARE (MEDICARE REPLACEMENT/ADV ANTAGE - HMO) Juani Ferro [id number] Juani Ferro Notes Date Note Type Note Provider Name and Address Organization Details Recorded Time 09/14/2023 text/html CRC Nurse Triage Notes (Emil Mendez): Chief Complaints: Hypertension PMH: Hypertension, Neurologic (E.G. ALS/MS) Other Allergies: NKA Comments: Gang Mower Operator verified the member's name//address and phone number. Education provided on the response time and the member was advised to monitor reported s/s and seek emergency treatment if needed.CG reports the member's blood pressure has been elevated for the past few days - B/P is currently - CG reports the member is taking her medication as prescribed - Member denies having a CAIN/dizziness/ SOB/nausea. .................... .................... .................... .................... .................... .................... .................... . Nutrition Helper Note From Davion Jordan: Pt FOOD PORTER sts pt BP was elevated last evening 180/?this morning 160/ systolic?pt sts no complaints today. pt denies cp sob headache NVD. Pt was eating breakfast and having coffee upon arrival. Baseline vitals assessed, vitals stable. Afebrile. Lungs clear. C contacted and advised to monitor Bp over next couple weeks and follow up with pcp. education on sign indicating the ER. .................... .................... .................... .................... .................... .................... .................... . Disposition: Fulfilled Katharina Richmond MD [address] [place] [address],[address], [place], [address], [employer] 09/14/2023 16:03:00 10/01/2023 text/html CRC Nurse Triage Notes (Niels Kothari): Reason For Request: Pt's daughter reporting shakes, some lethargy not as responsive, high BP this morning 196/110->188/106 now Chief Complaints: Weakness/Lethargy, Hypertension PMH: Hypertension, Neurologic (E.G. ALS/MS) Allergies: No Known Comments: Gang Mower Operator verified the member's name//address and phone number. Mbr's daughter calling reporting mbr feels tremulous. Mbr's daughter reports mbr is in her recliner chair and does not walk much at baseline, but states mbr is a bit more sleepy/ lethargic today from baseline. Daughter reports mbr is arousable just not as interactive as usual. Daughter reports mbr's BP is elevated today, 196/110 initially, now 188/106 on recheck. Education provided on the response time and the member was advised to monitor reported s/s and seek emergency treatment if needed -Tonny Kothari RN .................... .................... .................... .................... .................... .................... .................... . Nutrition Helper Note From Toro Tolbert: Upon arrival, [facility] and EMS were on scene and treating the patient. No patient contact was made. Dr. Aguero was contacted by Phone and advised of this outcome. .................... .................... .................... .................... .................... .................... .................... . Disposition: Unfulfilled Neftali Aguero MD [address] [facility],[address], [place], [address], [employer] 10/01/2023 17:42:10 10/26/2023 text/html CRC Nurse Triage Notes (Emil Mendez): Reason For Request: Pt's covering KT Cisse reporting unbalancing, complaints in her left leg, unable to sleep, unable to facilitate movements>abdominal pain Patient Reports: Vague abdominal pain greater than 24 hours; Nausea with or without vomiting Denies: Vomiting blood/coffee ground material Bloating, jaundice new onset with pain Nausea and vomiting greater than 2 hours with abdominal pain Constipation Diarrhea ? no blood in stool Chief Complaints: Syncope/Dizziness/Li ghtheadedness, Pain, Abdominal Pain PMH: Hypertension, Neurologic (E.G. ALS/MS) Allergies: Unknown Comments: Gang Mower Operator verified the member's name//address and phone number. Education provided on the response time and the member was advised to monitor reported s/s and seek emergency treatment if needed. FOOD PORTER Tanna reports the member is having upper left leg pain/weakness - Abdominal pain - Denies N/V/D - Unsteady on her feet. S/S x 2 days - Alert to baseline - Denies CAIN - Denies CP - Denies SOB - Last BM was yesterday - No blood noted. Denies bloating. Wellness visit requested . .................... .................... .................... .................... .................... .................... .................... . Nutrition Helper Note From Darrion Piedra: Dispatched to 81 y/o female. Upon arrival to pt residence providers was let into residence by FOOD PORTER directing providers to pt side. Pt found somnolent on recliner, CAOX4 when roused, airway open and patent, no distress noted. EMS obtained vital signs as noted. FOOD PORTER contacted pt daughter who spoke to providers on phone. Daughter stated that pt has been complaining of leg/hip pain in left leg, with pt stating pain is closer to left hip. Pain has been recurrent for the past 3 months, with today presenting abdominal pain as well as leg pain. Daughter wishes for providers to perform assessment and obtain vitals signs. Daughter states that pt has a PCP visit on Monday, approx 4 days from now. Daughter also states that no medications have been given to pt for pain at this moment. Assessment performed finding -sob, -cp, -td, -jvd, -n/v/d, -dizzy. Pt skin CTC normal. HEENT normal. Abdominal quadrants assessed, soft, non-tender with no pain on palpation. Providers contacted [facility] relaying information learned from daughter. requested pt obtain 100mg Tylenol three times a day PO, and if pt has difficulty swallowing to crush pills or give liquid Tylenol. [facility] also emphasized the need for pt to go to PCP appointment on Monday. No other orders given for providers, providers relayed information to daughter and FOOD PORTER, then left the residence, returning to service. All times approximate. .................... .................... .................... .................... .................... .................... .................... . Disposition: Fulfilled Neftali Aguero MD [address] [facility],[address], [place], [phone], [employer] 10/26/2023 15:49:38 01/24/2024 text/html CRC Nurse Triage Notes (Simi Chun): Reason For Request: Patient is lethargic bp 125/86. Slow to move, doesn't feel well. Chief Complaints: Fatigue, Weakness PMH: Hypertension, Epilepsy/Seizure Disorder, Cancer, Transient Ischemic Attack (TIA) Comments: Daughter reports patient is weak, lethargic, not talking much today. Urine does have a slight odor per FOOD PORTER. No resp symptoms. Not complaining of any pain. BP 125/86. Bowel movements every other day. Unknown PO intake recently. No known seizure activity. Education provided on the response time and the member was advised to monitor reported s/s and seek emergency treatment if needed. Nutrition Helper Organization Information for [facility] [employer] Legal Name: [facility] Transportation Address: [address] [place] [address], [place] [address], Rubber Block Layer: Harvinder Ortega MD CLIA No.: [id number] Nutrition Helper POC Test Results from [facility] (13:57:46) pH: 7.399 pH units pCO2: 45 mmHg pO2: 63.8 mmHg Na: 142 mmol/L K: 3.8 mmol/L iCa: 1.21 mmol/L Cl: 105 mmol/L TCO2: 28.0 mEq/L Hct: 42 % Hb: 14.4 g/dL Glu: 138 mg/dL Lac: 1.45 mmol/L Cr: 0.66 mg/dL BUN: 11 mg/dL A .................... .................... .................... .................... .................... .................... .................... . Nutrition Helper Note From [facility]: Patient alert and acting at baseline for caregiver, dementia. Caregiver reports patient became weak after standing and was lowered to the floor earlier today. Patient has been ambulating normally with assistance and the use of a walker. Patient complains of lightheadedness. Patient denies room spinning, dizziness, nausea, vomiting, diarrhea, fevers, headache, pain, or any other pain or complaint. Caregiver reports no evidence of straining, increased frequency, or pain on urination. Negative CVA tenderness.Patient pink warm dry secondary exam unremarkable. Lung sounds clear negative increased work of breathing positive full sentences . Negative edema noted. Unable to obtain clean urine sample. Despite FOOD PORTER assistance sample contaminated with feces.Epoc to [facility]. Patient negative for Covid and flu via rapid POC.[facility] advises patient to follow up with [facility] or PCP if symptoms persist to obtain urine sample. Red flags and patient education discussed. Caregiver demonstrates understanding of care and plan. .................... .................... .................... .................... .................... .................... .................... . [facility] Consulted: Katharina Richmond .................... .................... .................... .................... .................... .................... .................... . Disposition: Fulfilled Katharina Richmond MD [address] [place] [address],[address], [place], [address], [employer] 01/24/2024 20:39:01 05/25/2024 text/html CRC Nurse Triage Notes (Rosa Fraga): Reason For Request: Lethargic, not moving, weak, not moving as much, and doesn't want to talk. Chief Complaints: Weakness PMH: Hypertension, Epilepsy/Seizure Disorder, Cancer, Transient Ischemic Attack (TIA) PMH Reviewed at 05/25/2024:17 Allergies Reviewed at 05/25/2024:17 Comments: Patients daughter calling in to place a referral, patient identified via name and . Per daughter patient has been lethargic, weak and not interacting as she normally does. Patient is not using her words, only nodding, but answering yes/no questions appropriately. Family denies any facial droop, patient is not favoring a side when they assist with transfers or ambulation, but patient does have torticollis. Per daughter she is not presenting as she did when she had a TIA. She denies patient being pale, no diaphoresis, she is not grimacing, no shortness of breath or distress, no falls or trauma. When asked, daughter reports primary care provider forgot to give patient her keppra this morning, and wonder if she had an unwitnessed seizure. Patient is alert. RED flags discussed, daughter verbalized understanding. She would like mother assessed. .................... .................... .................... .................... .................... .................... .................... . Nutrition Helper Note From Tony Page: Dispatched to the home of a 69 year old female pt who had been experiencing weakness and lethargy since woken up this morning at 0830. Upon arrival patient was laying in an armchair and unable to speak. Pt family stated she was talking when she woke up at 0830, and then was unable to speak as the day went on, around 1530. She was also able to walk with a walker normally until 1530 when leaving religious. Patient was brought home by family, and she developed a tremor. Patient was assessed for stroke as soon as facial droop was recognized and [facility] and [facility] were called so pt could go to the hospital for scans as quickly as possible. 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 She could also not speak when asked questions which said had changed in the last couple hours. She had deficits from the brain cancer (head permanently tilted to one side) but showed classic signs of stroke. Iv cannulation was attempted but was unsuccessful. Pt has a pmx of brain cancer, seizures and TIA. Vitals were taken as EMS crew who arrived very quickly and took over. .................... .................... .................... .................... .................... .................... .................... . [facility] Consulted: Emerald Louise .................... .................... .................... .................... .................... .................... .................... . Disposition: Murali Louise MD [address] [facility],[address], [place], [address], [employer] 05/25/2024 18:48:50 OBGyn Episode No OBEpisode recorded.
--- OUTSIDE RECORDS SUMMARY | 2024-05-25 19:17 | XMS_ITS ---
Author Name [facility] Organization Unknown Encounters Encounter Type Encounter Reason Primary Diagnosis Location Date Ambulatory RESPIRATORY FAILURE [place] 01/03/2022 Care Team Organization Name Specialty Phone Email Start Date End [facility] [place] 01/04/2022 [place] 01/03/2022 01/03/2022
--- OUTSIDE RECORDS SUMMARY | 2024-05-25 19:17 | XMS_ITS | Clinical Summary ---
Author Organization [employer] Address [address] [place] [address] Care Team Providers Care Forestry Faculty Member Name Role Phone Unavailable Primary Care Provider [...]
--- OUTSIDE RECORDS SUMMARY | 2024-05-25 19:17 | XMS_ITS | Continuity of Care Document ---
Author Organization [employer] [place] [employer] Address [address] [place] [address] Care Team Providers Care Detail Manager Name Role Phone HIM CCA OTHER Assessment Encounter Date Assessment Date Assessment LastModified by Organization Details LastModified Time 05/25/2024 05/25/2024 Evaluation in the field was performed by my register of wills colleague, as noted above, I provided real-time [...] performed by this service. Disposition: Transport to [place] ED Not available 05/25/2024 18:48:20 Plan of Treatment Reminders Order Date Submit Date Provider Last Modified By Organization Details Last Modified Time Details Appointments Urgent Care 2024 05:50P M Emerald Louise MD Not available Not available Not available Lab None recorded . Referral None recorded . Procedures None recorded . Surgeries None recorded . Imaging None recorded . Medication Orders None recorded . Patient TargetsNo targets recorded. Patient InstructionsNo instructions recorded. Reason for Referral None Reported. Medical Equipment None Reported. Allergies No known [...] Available No t Available Vitals Date Recorded Respiratory rate Heart rate Oxygen saturation Oxygen saturation in Arterial blood by Pulse oximetry Systolic blood pressure Diastolic blood pressure Provider Name and Address Organization Details Last Updated DateTime 20 /min 103 /min 94 % 94 % 163 mm[Hg] 83 mm[Hg] Not Available [facility] - production 18:43:58 Social History None recorded. Functional Status None recorded. Mental Status None recorded. Family History Nothing Reported. Medical History No medical history recorded. Gynecological HistoryNo gynecological history recorded. Obstetrics History GPAL:G 0 P 0 0 0 0 Past Encounters Encounter ID Performer Location Encounter Start Date Encounter Closed Date Diagnosis/Indication Diagnosis SNOMED-CT Code Diagnosis ICD10 Code Diagnosis Note [id number] Emerald Louise MD Main - [address] [address] 05/25/2024 17:51:13 05/25/2024 18:48:51 Altered mental status 759744628 R41.82 Muscle weakness 83366897 R53.1 Weakness o f face muscles [id number] R29.810 Health Concerns Section Related Observation LastModified by Organization Detai ls LastModified Time None Recorded Concern Status LastModified by Organization Details LastModified Time None Recorded Payers Encounter Date Sequence Insurance Name Policy Number Policy Bruno Covered Member ID Bruno Member ID Guarantor Name 05/25/2024 1 [facility] - DOS ON OR AFTER 2022 - DUAL ELIGIBLE - LONG TERM OPTIONS AND ONE CARE (MEDICARE REPLACEMENT/ADV ANTAGE - HMO) Juani Ferro [id number] Juani Ferro Notes Date Note Type Note Provider Name and Address Organization Details Recorded Time 05/25/2024 text/html CRC Nurse Triage Notes (Rosa Fraga): Reason For Request: Lethargic, not moving, weak, not moving as much, and doesn't want to talk. Chief Complaints: Weakness PMH: Hypertension, Epilepsy/Seizure Disorder, Cancer, Transient Ischemic Attack (TIA) PMH Reviewed at 05/25/2024 - 17:17 Allergies Reviewed at 05/25/2024 - 17:17 Comments: Patients daughter calling in to place [...] falls or trauma. When asked, daughter reports hearing care professional forgot to give patient her keppra this morning, and wonder if she had an unwitnessed seizure. Patient is alert. RED flags discussed, daughter verbalized understanding. She would like mother assessed. .................. .................. .................. .................. .................. .................. .................. ............... Lead Coater Note From Tony Page: Dispatched to the [...] a walker normally until 1530 when leaving restoration. Patient was brought home by family, and she developed a tremor. Patient was assessed for stroke as soon as facial droop was recognized and [facility] and 1 were called so pt could go to the hospital for scans as quickly as possible. 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 .................. .................. .................. .................. .................. .................. .................. ............... [facility] Consulted: Emerald Louise .................. .................. .................. .................. .................. .................. .................. ............... Disposition: Fulfilled Emerald Louise MD [address] [facility],[address], [place], [address], [employer] 05/25/2024 18:48:50 OBGyn Episode No OBEpisode recorded.
--- OUTSIDE RECORDS SUMMARY | 2024-05-25 19:17 | XMS_ITS | Continuity of Care Document ---
Author Organization [facility] Address [address] [place] [address] Phone Care Team Providers Care Road Passenger Firer Name Role Phone Unavailable Unavailable Unavailable Advance Directives Directive Yes / No Effective Date File Name No Information Encounters Encounter Description Practice Location Reason(s) For Visit Diagnoses Date Provider Providers Copied on Encounter [facility], [address], [place], [place], [id number], [place] tel:[phone] [facility] No Information No Information Family History Family [...]
--- OUTSIDE RECORDS SUMMARY | 2024-05-25 19:17 | XMS_ITS | Clinical Summary ---
Author Organization [facility] Address [address] [place] [address] Care Team Providers Care Chicken And Fish Cleaner Name Role Phone Unknown Primary Care Provider [phone] Social History Tobacco Use Types Packs/Day Years [...] age to complete this topic Care Teams Chicken And Fish Cleaner Relationship Specialty Start Date End Date Unknown Unknow Provider Address PCP - General 01/03/22
[2024-05-25 19:18] LABS: Basophils Percent Auto 0.3 % (0-2); Eosinophils Absolute Auto 0.1 X10*3/uL (0.0-0.4); Eosinophils Percent Auto 0.6 % (0-4); Hematocrit 41.6 % (37.0-47.0); Hemoglobin 13.4 g/dl (12.0-16.0); Imm Gran Abs Auto 0.03 X10*3/uL (0.00-0.03); Imm Gran Pct Auto 0.3 % (0.0-0.4); Lymphocytes Absolute Auto 1.4 X10*3/uL (1.2-4.9); Lymphocytes Percent Auto 15.2 % (20-40); Mean Corpuscular HGB Conc 32.2 g/dl (31.0-35.0); Mean Corpuscular Hemoglobin 27.3 pg (27.0-33.0); Mean Corpuscular Volume 84.9 fL (80.0-98.0); Monocytes Absolute Auto 0.5 X10*3/uL (0.1-1.2); Monocytes Percent Auto 5.5 % (2-11); Neutrophils Absolute Auto 7.4 x10*3/uL (2.0-8.3); Neutrophils Percent Auto 78.1 % (45-73); Platelet Count 244 X10*3/uL (160-400); Red Cell Distribution Width 13.9 % (11.0-16.0); White Blood Count 9.5 X10*3/uL (4.8-10.8)
[2024-05-25 19:35] LABS: Alanine Aminotransferase 22 U/L (0-31); Albumin Level 3.8 g/dL (3.5-5.0); Alkaline Phosphatase 115 U/L (39-117); Anion Gap 13 (12-20); Aspartate Amino Transferase 24 U/L (5-31); Bilirubin Total 0.3 mg/dL (0.0-1.0); Blood Urea Nitrogen 14 mg/dL (9-16); Calcium 8.6 mg/dL (8.4-10.2); Carbon Dioxide 23 mmol/L (22-29); Chloride 105 mmol/L (96-108); Creatinine Clr Calc Pharmacy 77.4; Estimated Glomerular Filt Rate > 60; Glucose Random 112 mg/dL (60-115); Magnesium 2.2 mg/dL (1.6-2.6); Potassium 4.1 mmol/L (3.3-5.1); Sodium 137 mmol/L (135-145); Total Protein 7.1 g/dL (6.5-8.0)
[2024-05-25 20:19] VITALS: BP 161/67; PULSE 87; RESP 16; TEMP 37.1; O2SAT 98
[2024-05-25] MEDS: iohexoL 350 MG/ML 100 ML INFUS..BTL 70 ML IV (20:24)
[2024-05-25 22:00] VITALS: BP 145/73; PULSE 84; RESP 18; TEMP 36.7; O2SAT 97
[2024-05-25] MEDS: 0.9 % Sodium Chloride 500 ML IV (23:42)
[2024-05-26] VITALS: BP 161/70; PULSE 76; RESP 16; TEMP 36.9; O2SAT 97
[2024-05-26 00:02] LABS: Appearance Urine Clear; Color Urine Yellow; Glucose Urine UA Negative (Negative); Leukocyte Esterase Urine Negative (Negative); Nitrite Urine Negative (Negative); PH 7.5 (5.0-9.0); Specific Gravity - Urine >= 1.030 (1.005-1.025); Urine Blood Negative (Negative); Urine Ketones Negative (Negative); Urine Protein Trace mg/dL (Neg-Trace)
--- NOTE | 2024-05-26 00:10 | MHC.EDTECH ---
This tech took over care of pt at 2300,rounded and introduced self to pt,vitals taken,pt appears comfortable,family at bedside,call ortega in reach
[2024-05-26 01:12] VITALS: BP 161/70; PULSE 76; RESP 16; TEMP 36.9; O2SAT 97
== END 2024-05-26 01:14 | disposition home or self-care (01) ==
PROVIDERS: Physician Assistant Medical; Emergency Provider Internal Medicine
DX: R53.1 Weakness (principal); R29.700 NIHSS score 0; I10 Essential (primary) hypertension; E78.5 Hyperlipidemia, unspecified; Z86.718 Personal history of other venous thrombosis and embolism; Z79.01 Long term (current) use of anticoagulants; Z79.899 Other long term (current) drug therapy
CPT/HCPCS: 36415; 70496; 70498; 80053; 81003; 83735; 85025; 93005; 96360; 99284; 99285; Q9967

== ENCOUNTER → 2024-05-25 18:26 | Outpatient (BNV) | payer OTHER, SELFPAY | PROVIDERS: Emergency Provider Internal Medicine; Visit Provider Internal Medicine | DX: I63.9 Cerebral infarction, unspecified (principal) | CPT/HCPCS: 93010 ==

== ENCOUNTER → 2024-05-25 18:50 | Outpatient (BNV) | payer OTHER, SELFPAY | PROVIDERS: Emergency Provider Internal Medicine; Visit Provider Radiology Diagnostic Radiology | DX: I67.2 Cerebral atherosclerosis (principal); I70.90 Unspecified atherosclerosis | CPT/HCPCS: 70496; 70498 ==

== ENCOUNTER 2024-06-05 13:09 | Outpatient (AMB) | payer OTHER, SELFPAY ==
[2024-06-05 13:11] VITALS: BP 110/60; PULSE 70; O2SAT 99; BMI 25.3
--- NOTE | 2024-06-05 13:11 | MHC.OFFVIS ---
Vital Signs 06/05/24 13:11 Height 5 ft 6 in Weight 157 lb BMI 25.3 BP 110/60 Blood Pressure Location Lt brachial Position Sitting Pulse 70 Pulse Source Pulse Oximeter Pulse Oximetry (%) 99 Oxygen Delivery Method Room Air Intake Visit Reasons: 6 month follow up Intake Note: ESTABLISHED PATIENT for constipation mgmt. 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 Pt denies any additional sx or concerns at this time. Manager Valuation Required: No Accompanied by: Family/Other Allergies apple [Apple] Allergy (Severe, Verified 06/05/24 13:16) THROAT SWELLING pollen extracts [POLLEN] Allergy (Intermediate, Verified 06/05/24 13:16) SNEEZING COUGHING ALOT kiwi [Kiwi (Actinidia Chinensis)] Adverse Reaction (Intermediate, Verified 06/05/24 13:16) VOMITING avocado [Avocado] Adverse Reaction (Mild, Verified 06/05/24 13:16) VOMITING HPI HPI 6 month follow up: Details: LAST VISIT: Colon cancer screening Constipation Plan Continue Senokot daily. Increase fluid intake and activity to promote better bowel motility. Continue high-fiber diet. Patient will do Cologuard and we will see her in 6 months. If Cologuard positive patient and her daughter are aware that they will be recommended to go for colonoscopy. Patient is agreeable to this plan and verbalizes understanding of instructions. She was given the opportunity to ask questions and all questions answered. ? Thank you for allowing me to participate in her care Medications New sennosides (Natural Senna Laxative) 8.6 mg PO BEDTIME 90 tabs 3RF constipation K59.00 Discontinued docusate sodium Discontinued Reason: Doctor's Order 100 mg PO BEDTIME 90 caps 3RF K59.00 TODAY'S VISIT: Patient is here today for follow-up. Patient is accompanied by her WEB DESIGN SPECIALIST. No Cologuard, check the site on the website and no results available or pending. Patient's WEB DESIGN SPECIALIST states that her send back the box about 1 month ago. Will call Cologuard and will check. Patient reports that she is taking senna daily and she still continues to be constipated. Patient also reports acid reflux almost with anything that she eats. Patient reports dysphagia without dyspepsia or odynophagia. WEB DESIGN SPECIALIST reports that this happens when she is drinking fluids. She often coughs. Patient was having speech therapy from [facility] go to see her, however she was discharged. They advanced her to thin liquids. Patient is WEB DESIGN SPECIALIST states that she has good appetite. Denies having any blood in her stool, no melena, patient denies any abdominal pain her discomfort. Patient fell asleep during appointment, however able to wake her up for assessment. Patient's WEB DESIGN SPECIALIST states that this is her nap time [facility] Medical History (Updated 06/05/24 @ 13:35 by Jana Gray, [facility]) Dysphagia Seizure Brain cancer Metabolic alkalosis with respiratory acidosis Encounter for palliative care Sebaceous cyst of axilla Essential hypertension PVC (premature ventricular contraction) PAC (premature atrial contraction) Torticollis, acquired UTI (urinary tract infection), bacterial Bladder incontinence Unspecified urinary incontinence Abscess Symptomatic PVCs Physical exam, annual Stroke Insomnia Closed fracture of fibula with routine healing Fracture of distal end of fibula Right ankle pain HTN (hypertension) DVT (deep venous thrombosis) Surgical History Hx of section Hx of tubal ligation H/O craniotomy Family History Mother Diabetes Father Heart disease Family/Other Breast cancer Brain cancer Diabetes Social History Household Members: Unknown / Unable to assess Housing: Unknown / Unable to assess Housing Other:: Lives with Spouse Unable to assess alcohol history related to: Unable to respond Alcohol intake: never Comment: family in room Patient Tobacco Use Status: Never used Tobacco e-Cigarette/Vaping Use: Never Used Second Hand Smoke Exposure: No Advance Directives Date on File: 02/12/20 service: No Current occupational status: retired and disabled Cognitive needs: Yes Hearing needs: No Vision needs: Yes Female Reproductive History Menstrual Age of Menarche: 9 Review of Systems Const Denies weight gain and Denies weight loss ENT Reports no additional complaints, Denies dysphagia and Denies odynophagia Card Reports no additional complaints Resp Reports no additional complaints GI Denies abdominal pain, Denies belching, Denies melena, Denies bloating, Denies change in bowel habits, Reports constipation, Denies dysphagia, Denies excessive flatus, Denies dyspepsia, Reports heartburn, Denies diarrhea, Reports loose stools, Denies nausea, Denies odynophagia and Denies vomiting Reports no additional complaints Musc Reports no additional complaints Neuro Reports no additional complaints Psych Reports no additional complaints Endo Reports no additional complaints Physical Exam Vital Signs: Last Vital Signs Pulse 70 06/05/24 13:11 BP 110/60 06/05/24 13:11 Pulse Ox 99 06/05/24 13:11 Oxygen Delivery Method Room Air 06/05/24 13:11 BMI result Body Mass Index 25.3 Const Other: Patient is in a wheelchair R sided torticollis General: no acute distress Orientation/consciousness: patient oriented x3 Resp Effort & Inspection: normal respiratory effort, able to speak in complete sentences, no tracheal deviation and symmetric chest movement Auscultation: clear to auscultation bilaterally Cardio Rate: regular rate GI Inspection: Yes normal to inspection and No distended Palpation (GI): Soft to palpation, not firm, nontender and No hepatosplenomegaly present Auscultation: normal bowel sounds General: Yes no CVA tenderness Back/Spine/Pelvis Back: no CVA tenderness Skin General skin exam: elasticity normal, turgor normal and dry skin Neuro General: patient oriented x3 Psych Appearance: grossly normal Mental Status: mental status grossly normal Assessment & Plan Assessment & Plan (1) Dysphagia: Code(s): R13.10 - Dysphagia, unspecified Category: Medical Qualifiers: Dysphagia type: oropharyngeal phase Qualified Code(s): R13.12 - Dysphagia, oropharyngeal phase (2) Constipation: Code(s): K59.00 - Constipation, unspecified Qualifiers: Constipation type: slow transit constipation Qualified Code(s): K59.01 - Slow transit constipation (3) GERD (gastroesophageal reflux disease): Code(s): K21.9 - Gastro-esophageal reflux disease without esophagitis Qualifiers: Esophagitis presence: esophagitis presence not specified Qualified Code(s): K21.9 - Gastro-esophageal reflux disease without esophagitis (4) Postprandial abdominal bloating: Code(s): R14.0 - Abdominal distension (gaseous) Plan Will refer patient to speech and hearing. Patient had speech therapy come to the house in the past they cleared her and advanced to thin liquids. Patient is having hard time swallowing mainly fluids. Discussed the importance of trying to be careful when swallowing. Patient also reports acid reflux will send her script for Nexium. Discussed with WEB DESIGN SPECIALIST the importance of avoiding dietary triggers and late night snacking. Staying upright for minimum 3 hours after meals discussed with patient. Increased Senokot 2 tablets daily. Patient can take stool softeners. Call placed to [facility] and they received patient's echoecho box. They will process it and send us report. Patient will follow-up in 6 months, sooner on as needed basis. Both patient and her WEB DESIGN SPECIALIST are agreeable to plan of care and verbalizes understanding of instructions. They were given the opportunity to ask questions and all questions answered. Thank you for allowing me to participate in her care Orders: Referrals Speech and Hearing Referral R13.10 - Dysphagia, unspecified, T17.308A - Unspecified foreign body in larynx causing other injury, initial encounter Medications: New esomeprazole magnesium (Nexium) 20 mg PO DAILY 30 caps 4RF docusate sodium 100 mg PO BEDTIME 90 caps 3RF K59.00 - Constipation, unspecified Changed From sennosides (Natural Senna Laxative) 8.6 mg PO BEDTIME 90 tabs 3RF constipation K59.00 - Constipation, unspecified To sennosides (Natural Senna Laxative) 17.2 mg (2 x 8.6 mg) PO BEDTIME 180 tabs 3RF constipation K59.00 - Constipation, unspecified Coding Level of Care Code Est Pt Level 4 (11304) Complex EM visit Add On G2211 Diagnoses Oropharyngeal dysphagia R13.12 Dysphagia type: oropharyngeal phase Slow transit constipation K59.01 Constipation type: slow transit constipation Gastroesophageal reflux disease, unspecified whether esophagitis present K21.9 Esophagitis presence: esophagitis presence not specified Postprandial abdominal bloating R14.0 Time Spent (min) 40 Comment 25 minute spent with patient and additional 15 minute spent reviewing her records
--- OUTSIDE RECORDS SUMMARY | 2024-06-05 15:37 | XMS_ITS | Clinical Summary ---
Author Organization [facility] Address [address] [place] [address] Care Team Providers Care Toy Maker Name Role Phone Nicole Denny Juan HERNANDEZ Primary Care Provider Surgical History Surgery Date Site/Laterality Comments OTHER SURGICAL HISTORY PROCEDURE: PA CRANIEC TREPHINE BONE FLP BRAIN TUMOR SUPRTENTOR; COMMENT: history of craniotomy Medical History Medical History Date Comments Respiratory failure ([facility] V24, [facility] V28) DX:Respiratory failure (HCC) Essential hypertension DX:Essent ial hypertension Stroke (cerebrum) (CMS/HCC V24, CMS/HCC V28) DX:Stroke (cerebrum) ([facility]) Social History Tobacco Use Types Packs/Day Years [...] age to complete this topic Meningococcal B Vaccine Aged Out No l onger eligible based on patient's age to complete this topic RSV Immunization Patients Un berna 20 months Aged Out No longer eligible b ased on patient's age to complete this topic Varicella Vaccines Aged Out No longer eligible based on patient's age to complete this topic Advance Directives Documents on File Type Date Recorded 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
--- OUTSIDE RECORDS SUMMARY | 2024-06-05 15:37 | XMS_ITS | Continuity of Care Document ---
Author Organization [facility] Address [address] [place] [address] Phone Care Team Providers Care Hospital Medical Assistant Name Role Phone Unavailable Unavailable Unavailable Advance Directives Directive Yes / No Effective Date File Name No Information Encounters Encounter Description Practice Location Reason(s) For Visit Diagnoses Date Provider Providers Copied on Encounter hilario [facility], [address], [place], [place], [id number], [place] tel:[phone] [place] [facility] No Information No Information Family History Family Member Type Diagnosis Age At Onset No Information Payers Payer name Insurance type Covered republican ID Authoriza tion(s) No Information Social History [...]
--- OUTSIDE RECORDS SUMMARY | 2024-06-05 15:37 | XMS_ITS | Clinical Summary ---
Author Organization [facility] Address [address] [place] [address] Care Team Providers Care Forest Pathology Associate Professor Name Role Phone Unknown Primary Care Provider [phone] Social History Tobacco Use Types Packs/Day Years Used Date Smoking Tobacco: Never Assessed Comments Unknown Sex and Gender Information Value Date Recorded Sex Assigned at Not on file Legal Sex Female 6:30 PM EST Gender Identity Not on file [...] on patient's age to complete this topic Insurance [facility] MEDICARE PART A & B Care Teams Forest Pathology Associate Professor Relationship Specialty Start Date End Date Unknown Unknow Provider Address PCP - General 01/03/22
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
== END 2024-06-05 13:34 | disposition home or self-care (01) ==
LOC: HO.HGI 13:10
PROVIDERS: PCP Nurse Practitioner Family; Visit Provider Nurse Practitioner Family
DX: R13.12 Dysphagia, oropharyngeal phase (principal); K59.01 Slow transit constipation; K21.9 Gastro-esophageal reflux disease without esophagitis; R14.0 Abdominal distension (gaseous)
CPT/HCPCS: 99214; G2211

== ENCOUNTER → 2024-06-05 13:09 | Outpatient (BNVA) | payer OTHER, SELFPAY | PROVIDERS: PCP Nurse Practitioner Family; Visit Provider Nurse Practitioner Family | DX: R13.12 Dysphagia, oropharyngeal phase (principal); K59.01 Slow transit constipation; K21.9 Gastro-esophageal reflux disease without esophagitis; R14.0 Abdominal distension (gaseous); T17.308A Unspecified foreign body in larynx causing other injury, initial encounter; X58.XXXA Exposure to other specified factors, initial encounter | CPT/HCPCS: 99212 ==

== ENCOUNTER 2024-06-21 08:37 | Outpatient (AMB) | payer OTHER, SELFPAY ==
--- NOTE | 2024-06-21 08:40 | MHC.PC.OV ---
Vital Signs 06/21/24 08:46 Height 5 ft 6 in Weight 160 lb BMI 25.8 BP 133/62 Blood Pressure Location Rt brachial Position Sitting Respiration 16 Pulse 72 Pulse Source Pulse Oximeter Temp 98.5 F Temp Source Oral Pulse Oximetry (%) 100 Oxygen Delivery Method Room Air Intake Visit Reasons: week L left/pain Intake Note: patient here c/o having pain on left leg. 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 Accompanied by: Nephew or Niece Is last menstrual period known: No Post menopausal: No Patient : No Allergies apple [Apple] Allergy (Severe, Verified 06/21/24 08:50) THROAT SWELLING pollen extracts [POLLEN] Allergy (Intermediate, Verified 06/21/24 08:50) SNEEZING COUGHING ALOT kiwi [Kiwi (Actinidia Chinensis)] Adverse Reaction (Intermediate, Verified 06/21/24 08:50) VOMITING avocado [Avocado] Adverse Reaction (Mild, Verified 06/21/24 08:50) VOMITING Medication List - Last Reconciled 06/21/24 by Neto Aguirre CNP amlodipine 5 mg PO DAILY 90 days aspirin 81 mg PO DAILY atorvastatin 40 mg PO DAILY [automatic blood pressure cuff As directed] baclofen 10 mg PO DAILY cholecalciferol (vitamin D3) 50 mcg PO DAILY 90 days docusate sodium 100 mg PO BEDTIME esomeprazole magnesium (Nexium) 20 mg PO DAILY levetiracetam 1,000 mg (10 mL) PO BID 90 days lisinopril 20 mg See Protocol PO DAILY miscellaneous medical supply Disposable Diaper-PullUps. size large 8x daily As directed, 30 day supply multivitamin 1 tab PO DAILY rivaroxaban (Xarelto) 20 mg PO DAILY 30 days sennosides (Natural Senna Laxative) 17.2 mg (2 x 8.6 mg) PO BEDTIME Shower Chair (Chair, shower) Putnam rolling shower chair with hole to also be used as a commode Tobacco use date assessed: 06/21/24 Fall risk assessment: No Falls in past year Last assessed Fall Risk: 06/21/24 Dental Screening Dental Screen Date: 06/21/24 Did you have a dental visit in the last 12 months?: No Did you have a dental problem in the last 6 months where you did not have access to dental care?: No Was dental information given to patient?: Patient has dentist HPI HPI Comments History of Present Illness Details 69-year-old female, accompanied by her niece, presents with complaints of left leg pain. She notes that she woke up with severe, intermittent throbbing pain to her entire left leg 2 days ago. The pain affected her gait. She took a dose of alleviate yesterday. She woke up this morning without any symptoms. She denies fall, injury, or trauma. She is wheelchair-bound. Her niece states that she gets the patient up and walking every 2 hours. No acute symptoms at this time. [facility] Medical History (Updated 06/21/24 @ 09:01 by Neto Aguirre CNP) Dysphagia Seizure Brain cancer Metabolic alkalosis with respiratory acidosis Encounter for palliative care Sebaceous cyst of axilla Essential hypertension PVC (premature ventricular contraction) PAC (premature atrial contraction) Torticollis, acquired UTI (urinary tract infection), bacterial Bladder incontinence Unspecified urinary incontinence Abscess Symptomatic PVCs Physical exam, annual Stroke Insomnia Closed fracture of fibula with routine healing Fracture of distal end of fibula Right ankle pain HTN (hypertension) DVT (deep venous thrombosis) Surgical History Hx of section Hx of tubal ligation H/O craniotomy Family History Mother Diabetes Father Heart disease Family/Other Breast cancer Brain cancer Diabetes Social History Household Members: Unknown / Unable to assess Housing: Unknown / Unable to assess Housing Other:: Lives with Spouse Unable to assess alcohol history related to: Unable to respond Alcohol intake: never Comment: family in room Patient Tobacco Use Status: Never used Tobacco e-Cigarette/Vaping Use: Never Used Second Hand Smoke Exposure: No Advance Directives Date on File: 02/12/20 service: No Current occupational status: retired and disabled Cognitive needs: Yes Hearing needs: No Vision needs: Yes Female Reproductive History Menstrual Age of Menarche: 9 Questionnaire Thrive Questionnaire Date Thrive assessed: 04/05/24 I am a: Parent/Caregiver What is your living situation today?: I have a steady place to live Within the past 12 months, did the food you bought not last and you didn't have the money to get more?: Never true Within the past 12 months, did you worry whether your food would run out before you got money to buy more?: Never true Do you have trouble paying for medicines?: No Do you have trouble getting transportation to medical appointments?: No Do you have trouble paying your heating and electricity bill?: No Do you have trouble taking care of your child, family member or friend?: No Do you have trouble with day-to-day activities such as bathing, preparing meals, shopping, managing finances, etc.?: Yes Are you currently unemployed and looking for a job?: Yes Are you interested in more education?: No Please select the resources that you would like help with: None Currently or been in a relationship where the following occur: No concerns reported THRIVE Score: 0 MADAY-7 AMB Questionnaire MADAY-7 Date MADAY - 7 assessed: 04/05/24 Source: Developed by Drs. Horace Pineda, Daya Durbin, Romero Cat and colleagues, with an educational loren from [employer]. Review of Systems Const Details: Const Denies chills, Denies fatigue, Denies fever(s), Denies headache(s) and Denies weakness ENT Denies dizziness and Denies headache(s) Card Denies chest pain, Denies lightheadedness, Denies dyspnea and Denies other (Palpitations) Resp Denies cough, Denies dyspnea, Denies wheezing and Denies other ( shortness of breath) GI Denies abdominal pain, Denies melena, Denies hematochezia, Denies change in bowel habits, Denies dyspepsia and Denies nausea Denies hematuria and Denies dysuria Musc Denies abnormal gait, Denies myalgias, Denies arthralgias, Denies numbness and Denies tingling Skin/Breast Denies rash, Denies unusual bruising and Denies wounds Neuro Denies abnormal gait, Denies dizziness, Denies headache(s), Denies memory loss, Denies numbness, Denies Sensory deficit (Neuro), Denies tingling and Denies weakness Psych Denies anxiety, Denies depression, Denies memory loss Endo Denies cold intolerance, Denies fatigue, Denies heat intolerance, Denies polydipsia and Denies polyuria Aller/Immun Denies wheezing Physical exam (Primary Care) Tobacco/Smoking Status: Tobacco use Status Tobacco use date assessed 04/05/24 04/05/24 10:25 Patient Tobacco Use Status Never used Tobacco 05/25/24 18:41 e-Cigarette/Vaping Use Never Used 04/05/24 10:25 Thrive Assessment: Date of Thrive Assessment Date Thrive assessed 04/05/24 04/05/24 10:25 Currently or been in a relationship where the following occur: No concerns reported Const Other: General: no acute distress and well developed Nutritional Appearance: well nourished Orientation/consciousness: patient oriented x3 HENMT Head: Yes normocephalic and Yes atraumatic Eyes General: appearance normal, both eyes and all related structures Pupils: Equal, round and reactive pupils present EOM: EOMs intact bilaterally Resp Effort & Inspection: normal respiratory effort Auscultation: clear to auscultation bilaterally Cardio Rate: regular rate Rhythm: regular rhythm Heart sounds: S1 normal heart sound present, S2 normal heart sound present, no gallops, no murmurs and no rubs GI Palpation (GI): No Abdominal aortic bruit present, Soft to palpation, nontender, No hepatosplenomegaly present and No Rebound tenderness present Auscultation: normal bowel sounds General: Yes no CVA tenderness Back/Spine/Pelvis Back: no CVA tenderness Cervical Spine: cervical ROM normal and No Cervical spine tenderness Thoracic/Lumbar Spine: thoraco-lumbar ROM normal, No pain with thoraco-lumbar ROM, No thoracic spinal tenderness and No lumbar spinal tenderness Extrem General: Yes normal to inspection, No edema and No calf tenderness Skin General: warm and dry. Normal skin color. Normal skin turgor Neuro General: patient oriented x3, and no focal neuro deficit Cranial nerves: Yes Equal, round and reactive pupils present Cognition (Neuro): normal cognition Gait exam (Neuro): Not assessed, wheelchair-bound Sensory Exam: No Sensory deficit (Neuro) Psych Appearance: grossly normal Affect: normal affect Attitude: cooperative Thought process: Normal thought process present Coding Level of Care Code Est Pt Level 3 (54206) Diagnoses Pain of left lower extremity M79.605 Assessment & Plan Assessment & Plan (1) Pain of left lower extremity: Code(s): M79.605 - Pain in left leg Category: Medical Plan: Resolved. Advised to take a leave as needed for pain or discomfort. Encouraged to ambulate frequently. Follow-up as planned in July or return sooner with symptoms or concerns. Verbalized understanding and agreed with the treatment plan.
[2024-06-21 08:46] VITALS: BP 133/62; PULSE 72; RESP 16; TEMP 36.9; O2SAT 100; BMI 25.8
--- OUTSIDE RECORDS SUMMARY | 2024-06-21 09:02 | XMS_ITS | Continuity of Care Document ---
Author Organization [facility] Address [address] [place] [address] Phone Care Team Providers Care Manager Alliance Name Role Phone Unavailable Unavailable Unavailable Advance Directives Directive Yes / No Effective Date File Name No Information Encounters Encounter Description Practice Location Reason(s) For Visit Diagnoses Date Provider Providers Copied on Encounter hilario Martinez [facility], [address], [place], [place], [id number], [place] tel:[phone] [address] [facility] No Information No Information Family [...]
--- OUTSIDE RECORDS SUMMARY | 2024-06-21 09:02 | XMS_ITS | Clinical Summary ---
Author Organization [facility] Address [address] [place] [address] Care Team Providers Care Placement Coordinator Name Role Phone Unknown Primary Care Provider [phone] Social History Tobacco Use Types Packs/Day Years [...] patient's age to complete this topic Insurance [facility] MEDICARE PART A & B Care Teams Placement Coordinator Relationship Specialty Start Date End Date Unknown Unknow Provider Address PCP - General 01/03/22
--- OUTSIDE RECORDS SUMMARY | 2024-06-21 09:02 | XMS_ITS | Clinical Summary ---
Author Organization [facility] Address [address] [place] [address] Care Team Providers Care Operator Electronic Warfare Name Role Phone Unavailable Primary Care Provider [...] Tdap) 1973 Mammogram 1994 Pneumococcal Vaccine: 50+ Years (1 of 1 - PCV) 2004 Zoster Vaccines (1 of 2) 2004 COVID-19 Vaccine (3 - 2023-2 5 season) 2023 06/25/2020, 05/28/2020 Influenza Vaccine (#1) 2023 RSV Patients and Patients Aged 60 years or older (1 - [...]
--- OUTSIDE RECORDS SUMMARY | 2024-06-21 09:02 | XMS_ITS | Clinical Summary ---
Author Organization [facility] Address [address] [place] [address] Care Team Providers Care Puncher Name Role Phone Nicole Denny Juan HERNANDEZ Primary Care Provider Surgical History Surgery Date Site/Laterality Comments OTHER SURGICAL HISTORY PROCEDURE: [place] CRANIEC TREPHINE BONE FLP BRAIN TUMOR SUPRTENTOR; COMMENT: history of craniotomy Medical History Medical History Date Comments Respiratory failure ([facility] V24, [facility] V28) DX:Respiratory failure (HCC) Essential hypertension DX:Essent ial hypertension Stroke (cerebrum) (CMS/HCC V24, CMS/HCC V28) DX:Stroke (cerebrum) ([facility]) Social History Tobacco Use Types [...] Documents on File Type Date Recorded 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
--- OUTSIDE RECORDS SUMMARY | 2024-06-21 09:02 | XMS_ITS | Data Portability ---
Author Organization [employer] [facility] [employer] Address [address] [place] [id number] Care Team Providers Care Console Attendant Name Role Phone HIM CCA OTHER Assessment Encounter Date Assessment Date Assessment LastModified by Organization Details LastModified Time 09/14/2023 09/14/2023 I provided real -time medical direction via phone for this encounter and was available for additional phone-based assistance as needed. I have reviewed and agree with the Assessment and Plan as documented by the Director Employee Communications. Patient given the opportunity to ask questions. Our service contacted for an assessment of: HTN As per above, patient is followed by PCP for HTN. Is using a home cuff to take her BPs. She denies any symptoms and takes her medications as prescribed. Elevated last night and slightly this AM. Per worksite wellness practitioner on the scene, VSS. No HTN. Impression: [...] Assessment and Plan as documented by the Director Employee Communications. I provided real-time medical direction via phone [...] Assessment and Plan as documented by the Director Employee Communications. Patient given the opportunity to ask questions. [...] other changes noted in the patient. Per worksite wellness practitioner on the scene, vital signs are stable [...] th e field was performed by my worksite wellness practitioner colleague, as noted above, I provided real-time [...] performed by this service. Disposition: Transport to [facility] Not available 05/25/2024 18:48:20 Plan of Treatment Reminders Order Date Submit Date Provider Last Modified By Organization Details Last Modified Time Details Appointments None recorded . Lab BMP, serum or plasma 024 01/24/20 24 [facility], [address] [place] [address], [phone] 4 21:09:31 Referral None recorded . Procedures [...] [degF] 16 /min 97 % 97 % 21484.6 4 g 82 /min 134 mm[Hg] 78 mm[Hg] Not Available [employer] 4 15:55:54 Date Recorded Respiratory rate Heart rate Oxygen saturation Oxygen saturation in Arterial blood by Pulse oximetry Body temperature Systolic blood pressure Diastolic blood pressure Provider Name and Address Organization Details Last Updated DateTime 4 20 /min 78 /min 98 % 98 % 97.3 [degF] 130 mm[Hg] 80 mm[Hg] Not Available [employer] - production 4 15:05:47 Date Recorded Body height Body weight Respiratory rate Body temperature Oxygen saturation Oxygen saturation in Arterial blood by Pulse oximetry Heart rate Systolic blood pressure Diastolic blood pressure Provider Name and Address Organization Details Last Updated DateTime 4 162.56 cm 89383.6 g 14 /min 97.4 [degF] 97 % 97 % 106 /min 136 mm[Hg] 72 mm[Hg] Not Available [employer] 4 13:49:07 Date Recorded Respiratory rate Heart rate Oxygen saturation Oxygen saturation in Arterial blood by Pulse oximetry Systolic blood pressure Diastolic blood pressure Provider Name and Address Organization Details Last Updated DateTime 5 20 /min 103 /min 94 % 94 % 163 mm[Hg] 83 mm[Hg] Not Available [employer] 5 18:43:58 Social History None recorded. Functional Status None recorded. Mental Status None recorded. Family History Nothing Reported. Medical History No medical history recorded. Gynecological HistoryNo gynecological history recorded. Obstetrics History GPAL:G 0 P 0 0 0 0 Past Encounters Encounter ID Performer Location Encounter Start Date Encounter Closed Date Diagnosis/Indication Diagnosis SNOMED-CT Code Diagnosis ICD10 Code Diagnosis Note [id number] Katharina Richmond MD [facility] [address] [place] [phone] 10/19/2022 20:51:28 10/19/2022 23:56:47 Chronic neck pain 2479186034 107 M54.2 [id number] José Miguel Corbett MD [facility] [address] [place] [phone] 11/04/2022 13:57:27 11/07/2022 11:39:33 Vaginitis 07920413 N76.0 This 67-year-ol d female with a history of recurrent UTIs and vaginitis called [facility] complainin g of dysuria and vaginal irritation . Her U/A was negative. I suggested that she use her usual vaginitis cream and follow-up with her PCP. The patient agreed with this plan. [id number] Katharina Richmond MD [facility] - [address] [address] 12/30/2022 17:02:43 01/02/2023 13:20:44 Urine: dark/concentrated 293623564 R82.998 [id number] Arcelia Reyes MD [address] [address] 12/31/2022 14:38:06 01/02/2023 14:30:37 Urinary symptoms 312175865 R39.9 67 year old female who is nonverbal, being evaluated for foul smelling urine without any other symptoms. Patient was seen yesterday by [facility] - plan was to return to today to collect a urine sample. Family reports patient's previous UTI's have presented this way. Exam notable for normal vital signs. Presentati on consistent with foul smelling urine, possibly due to simple cystitis. Urine culture and urinalysis sent to lab. I have reviewed and agree with the assessment and plan as documented by the worksite wellness practitioner. I provided real-time medical direction for this encounter and was immediatel y available to provide additional phone-base d assistance as needed. We discussed the diagnostic uncertaint y of home visits and associated risks. We discussed the need to seek care urgently/e mergently in the setting of any new or worsening symptoms. [id number] José Miguel Corbett MD [address] [address] 01/24/2023 12:52:34 01/25/2023 10:24:39 Blood in urine 08282314 R31.9 This 67-year-ol d female who is incontinen t had a recent UTI. She was noted to have some blood in her underwear three days ago. She was unable to give a U/A today. I recommende d that they leave a container for a U/C to be sent to [facility]. She will follow up with her PCP. The patient agreed with this plan. [id number] MONROE TAYLOR MD [facility] [address] [place], [place] [address] 0 07/14/2023 14:34:31 07/14/2023 21:27:46 Seizure disorder 697640423 G40.909 [id number] Erich Gutierrez MD [facility] [address] [place] [address] 0 08/04/2023 21:10:48 08/06/2023 00:44:19 Wheezing 13331364 R06.2 Viral uppe r respiratory tract infection 983603163 J06.9 [id number] Katharina Richmond MD [facility] [address] [place] [address] 0 09/14/2023 15:55:52 09/14/2023 16:30:24 Essential hypertension 02518545 I10 [id number] Neftali Aguero MD [facility] [address] [place] [address] 0 10/01/2023 17:36:22 10/01/2023 17:42:11 [id number] Neftali Aguero MD [facility] [address] [place] [address] 0 10/26/2023 14:58:04 10/26/2023 22:14:03 Pain of left hip joint 4513819645 44604 M25.552 [id number] Katharina Richmond MD [facility] [address] [place] [address] 0 01/24/2024 13:43:05 01/25/2024 08:56:21 Irritant contact dermatitis caused by contact with urine and/or feces 500712904 L24.A2 [id number] Emerald Louise MD [facility] [address] [place] [id number] 05/25/2024 17:51:13 05/26/2024 23:10:51 Altered mental status 153761943 R41.82 Muscle weakness 96274759 R53.1 Weakness o f face muscles 10044225 R29.810 Health Concerns Section Related Observation LastModified by Organization Detai ls LastModified Time None Recorded Concern Status LastModified by Organization Details LastModified Time None Recorded Advance Directives Directive None Recorded Payers Encounter Date Sequence Insurance Name Policy Number Policy Bruno Covered Member ID Bruno Member ID Guarantor Name 09/14/2023 1 [facility] - DOS ON OR AFTER 2022 - DUAL ELIGIBLE - [employer] OPTIONS AND ONE CARE (MEDICARE REPLACEMENT/ADV ANTAGE - HMO) Juani Ferro [id number] Juani Ferro 10/01/2023 1 [facility] - DOS ON OR AFTER 2022 - DUAL ELIGIBLE - [employer] OPTIONS AND ONE CARE (MEDICARE REPLACEMENT/ADV ANTAGE - HMO) Juani Ferro [id number] Juani Ferro 10/26/2023 1 [facility] - DOS ON OR AFTER 2022 - DUAL ELIGIBLE - [employer] OPTIONS AND ONE CARE (MEDICARE REPLACEMENT/ADV ANTAGE - HMO) Juani Ferro [id number] Juani Ferro 01/24/2024 1 [facility] - DOS ON OR AFTER 2022 - DUAL ELIGIBLE - [employer] OPTIONS AND ONE CARE (MEDICARE REPLACEMENT/ADV ANTAGE - HMO) Juani Ferro [id number] Juani Ferro 05/25/2024 1 [facility] [employer] - DOS ON OR AFTER 2022 - DUAL ELIGIBLE - [employer] OPTIONS AND ONE CARE (MEDICARE REPLACEMENT/ADV ANTAGE - HMO) Juani Ferro [id number] Juani Ferro Notes Date Note Type Note Provider Name and Address Organization Details Recorded Time 09/14/2023 text/html CRC Nurse Triage Notes (Emil Mendez): Chief Complaints: Hypertension PMH: Hypertension, Neurologic (E.G. ALS/MS) Other Allergies: NKA Comments: [employer] Apprentice verified the member's name//address and phone number. [...] .................... .................... .................... .................... .................... .................... . Director Employee Communications Note From Davion Jordan: Pt RESPIRATORY THERAPY DIRECTOR sts pt BP was elevated last evening 180/?this morning 160/ systolic?pt sts no complaints today. pt denies cp sob headache NVD. Pt was eating breakfast and having coffee upon arrival. Baseline vitals assessed, vitals stable. Afebrile. Lungs clear. [facility] contacted and advised to monitor Bp over next couple weeks and follow up with pcp. education on sign indicating the ER. .................... .................... .................... .................... .................... .................... .................... . Disposition: Fulfilled Katharina Richmond MD [address] [place] [address],[address], [place], [phone], [employer] 09/14/2023 16:03:00 10/01/2023 text/html CRC Nurse Triage Notes (Niels Kothari): Reason For Request: Pt's daughter reporting shakes, some lethargy not as responsive, high BP this morning 196/110->188/106 now Chief Complaints: Weakness/Lethargy, Hypertension PMH: Hypertension, Neurologic (E.G. ALS/MS) Allergies: No Known Comments: [employer]ice verified the member's name//address and phone number. [...] .................... .................... .................... .................... .................... .................... . Director Employee Communications Note From Toro Tolbert: Upon arrival, [facility] fire and EMS were on scene and treating the patient. No patient contact was made. Dr. Aguero was contacted by Phone and advised of this outcome. .................... .................... .................... .................... .................... .................... .................... . Disposition: Unfulfilled Neftali Aguero MD [address] [facility],[address], [place], [phone], [employer] 10/01/2023 17:42:10 10/26/2023 text/html CRC Nurse Triage Notes (Emil Mendez): Reason For Request: Pt's covering RESPIRATORY THERAPY DIRECTOR Tanna reporting unbalancing, complaints in her left [...] Hypertension, Neurologic (E.G. ALS/MS) Allergies: Unknown Comments: [employer]ice verified the member's name//address and phone number. Education provided on the response time and the member was advised to monitor reported s/s and seek emergency treatment if needed. RESPIRATORY THERAPY DIRECTOR Tanna reports the member is having upper left leg pain/weakness - Abdominal pain - Denies N/V/D - Unsteady on her feet. S/S x 2 days - Alert to baseline - Denies CAIN - Denies CP - Denies SOB - Last BM was yesterday - No blood noted. Denies bloating. Wellness visit requested . .................... .................... .................... .................... .................... .................... .................... . Director Employee Communications Note From Darrion Piedra: Dispatched to 81 y/o female. Upon arrival to pt residence providers was let into residence by RESPIRATORY THERAPY DIRECTOR directing providers to pt side. Pt found somnolent on recliner, CAOX4 when roused, airway open and patent, no distress noted. EMS obtained vital signs as noted. RESPIRATORY THERAPY DIRECTOR contacted pt daughter who spoke to providers [...] with no pain on palpation. Providers contacted [facility] relaying information learned from daughter. Dr requested pt obtain 100mg Tylenol three times a day PO, and if pt has difficulty swallowing to crush pills or give liquid Tylenol. [facility] also emphasized the need for pt to go to PCP appointment on Monday. No other orders given for providers, providers relayed information to daughter and RESPIRATORY THERAPY DIRECTOR, then left the residence, returning to service. All times approximate. .................... .................... .................... .................... .................... .................... .................... . Disposition: Fulfilled Neftali Aguero MD [address] [facility],[address], [place], [phone], [employer] 10/26/2023 15:49:38 01/24/2024 text/html CRC Nurse Triage Notes (Simi Chun): Reason For Request: Patient is lethargic bp 125/86. Slow to move, doesn't feel well. Chief Complaints: Fatigue, Weakness PMH: Hypertension, Epilepsy/Seizure Disorder, Cancer, Transient Ischemic Attack (TIA) Comments: Daughter reports patient is weak, lethargic, not talking much today. Urine does have a slight odor per RESPIRATORY THERAPY DIRECTOR. No resp symptoms. Not complaining of any pain. BP 125/86. Bowel movements every other day. Unknown PO intake recently. No known seizure activity. Education provided on the response time and the member was advised to monitor reported s/s and seek emergency treatment if needed. Director Employee Communications Organization Information for Yamil Kingston Business Legal Name: [facility] [employer] Address: [address] [place] [address], [place] [id number], Maintenance Helper: Harvinder Ortega MD CLIA No.: [id number] Director Employee Communications POC Test Results from Yamil Kingston epo (13:57:46) pH: 7.399 pH units pCO2: 45 mmHg pO2: 63.8 mmHg Na: 142 mmol/L K: 3.8 mmol/L iCa: 1.21 mmol/L Cl: 105 mmol/L TCO2: 28.0 mEq/L Hct: 42 % Hb: 14.4 g/dL Glu: 138 mg/dL Lac: 1.45 mmol/L Cr: 0.66 mg/dL BUN: 11 mg/dL A .................... .................... .................... .................... .................... .................... .................... . Director Employee Communications Note From Yamil Kingston: Patient alert and [...] Unable to obtain clean urine sample. Despite RESPIRATORY THERAPY DIRECTOR assistance sample contaminated with feces.Epoc to [facility]. Patient negative for Covid and flu via rapid POC.[facility] advises patient to follow up with [facility] or PCP if symptoms persist to obtain urine sample. Red flags and patient education discussed. Caregiver demonstrates understanding of care and plan. .................... .................... .................... .................... .................... .................... .................... . [facility] Consulted: Katharina Richmond .................... .................... .................... .................... .................... .................... .................... . Disposition: Fulfilled Katharina Richmond MD [address] [place] [address],[address], [place], [phone], [employer] 01/24/2024 20:39:01 05/25/2024 text/html CRC Nurse Triage [...] falls or trauma. When asked, daughter reports post acute care nurse practitioner forgot to give patient her keppra this morning, and wonder if she had an unwitnessed seizure. Patient is alert. RED flags discussed, daughter verbalized understanding. She would like mother assessed. .................... .................... .................... .................... .................... .................... .................... . Director Employee Communications Note From Tony Page: Dispatched to the [...] a walker normally until 1530 when leaving congregation. Patient was brought home by family, and she developed a tremor. Patient was assessed for stroke as soon as facial droop was recognized and [facility] and 911 were called so pt could go to the hospital for scans as quickly as possible. 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 .................... .................... .................... .................... .................... . [facility] Consulted: Emerald Louise .................... .................... .................... .................... .................... .................... .................... . Disposition: Murali Louise MD [address] [facility],[address], [place], [phone], [employer] 05/25/2024 18:48:50 OBGyn Episode No OBEpisode recorded.
== END 2024-06-21 09:02 | disposition home or self-care (01) ==
LOC: HO.HMCFM 08:38
PROVIDERS: PCP Nurse Practitioner Family; Visit Provider Nurse Practitioner Family
DX: M79.605 Pain in left leg (principal)

== ENCOUNTER → 2024-06-21 08:37 | Outpatient (BNVA) | payer OTHER, SELFPAY | PROVIDERS: PCP Nurse Practitioner Family; Visit Provider Nurse Practitioner Family | DX: M79.605 Pain in left leg (principal); R26.9 Unspecified abnormalities of gait and mobility | CPT/HCPCS: 99212 ==

== ENCOUNTER 2024-08-20 14:31 | Outpatient (REF) | payer OTHER, SELFPAY ==
--- OUTSIDE RECORDS SUMMARY | 2012-10-11 05:54 | XMS_ITS | Continuity of Care Document ---
Author Organization [facility] Address [address] [place] [address] Phone Care Team Providers Care .Net Architect Name Role Phone Unavailable Unavailable Unavailable Advance Directives Directive Yes / No Effective Date File Name No Information Encounters Encounter Description Practice Location Reason(s) For Visit Diagnoses Date Provider Providers Copied on Encounter hilario Martinez [facility], [address], [place], [place], [id number], [place] tel:[phone] [facility] No Information No Information Family History Family Member Type Diagnosis Age At Onset No Information Payers Payer name Insurance type Covered democrat ID Authoriza tion(s) No Information Social History Type Description Quantity Date Captured Comments Sex Female Smoking Status No Information Sexual Orientation Bisexual Chief Complaint And Reason For Visit No Information Reason For Referral Reason For Referral No Information History Of Present Illness Encounter Date Complaint History Of Prese nt Illness No Information Functional Status Date Functional Assessmen t No Information Instructions Date Instruction Additional Infor mation No Information Assessments Type Assessment Date No Information Patient Care Teams Name Effective Dates (start - stop) Status Members No Information
--- NOTE | ~2024-08-20 | FL_ITS ---
EXAMINATION: XR BARIUM SWALLOW CLINICAL INFORMATION: Dysphagia. Patient having right-sided torticollis. COMPARISON: None available. TECHNIQUE: Barium swallow with various consistencies of liquid and solid food was performed under lateral oblique fluoroscopy in presence of speech therapist.. FINDINGS: On oral administration of thin, thick barium, nectar, pudding and cookie coated with barium there is normal propagation bolus from oral cavity through the pharynx into esophagus. There is normal oral mastication of solid food. No laryngeal penetration or aspiration seen. The valleculae and the piriform sinuses are normal. FLUOROSCOPY TIME: 1 minute 39 seconds DOSE AREA PRODUCT: 1268 uGy-m2 (microgray-meter squared) FL/FL Modified Barium Swallow IMPRESSION: Unremarkable modified barium swallow. Compare with speech therapy results. Electronically signed by: Olu Gerard MD 08/20/2024 04:14 PM EDT
--- OUTSIDE RECORDS SUMMARY | 2024-08-20 15:37 | XMS_ITS | Data Portability ---
Author Organization [employer], [facility] Address [address] [place] [address] Care Team Providers Care Professor Of Communication And Writing Name Role Phone HIM CCA OTHER Assessment Encounter Date Assessment Date Assessment LastModified by Organization Details LastModified Time 10/01/2023 10/01/2023 Patient transported to ED prior to my involvement in this case. I did not provide clinical services for this visit. pallfather Not available 10/01/2023 17:40:23 10/26/2023 10/26/2023 I have reviewed and agree with the Assessment and Plan as documented by the Senior Programmer. I provided real-time medical direction via phone [...] Assessment and Plan as documented by the Senior Programmer. Patient given the opportunity to ask questions. [...] other changes noted in the patient. Per primer charging tool setter on the scene, vital signs are stable [...] or worsening serious symptoms, particularly fever chills [email or web address] Not available 01/24/2024 20:38:44 05/25/2024 05/25/2024 Evaluation in [facility] field was performed by my primer charging tool setter colleague, as noted above, I provided real-time [...] performed by this service. Disposition: Transport to [facility] Not available 05/25/2024 18:48:20 06/30/2024 06/30/2024 Mrs. Ferro was evaluated for increased confusion and generalized weakness. She is afebrile but noted to be mildly tachycardic. Per medic exam she does not have any focal neurologic findings. She does report irritative urinary symptoms. Her daughter does not want her transported to the ER at this time after a discussion about the limited diagnostic abilities in the home. A straight cath UA was obtained which appears positive for UTI with +nitrites, leuk esterase and blood. Patient treated with cephalexin and a prescription is sent to the pharmacy. At this time will remain at home per family preference with monitoring of symptoms. They understand this is a limited evaluation and if failure to improve or worsening next step would be ER evaluation. Family satisfied with plan of care as above. I provided real -time medical direction via phone for this encounter, and was available for additional phone based assistance as needed. I have reviewed and agree with the Assessment and Plan as documented by the Senior Programmer. We discussed the diagnostic uncertainty of home visits and the risk associated with this. In this case the patient's family and I felt this to be an acceptable and reasonable amount of risk given the benefit of avoiding an ED visit. The patient given the opportunity to ask questions. Advised if develops CP/severe SOB/turning blue/uncontrolled n/v/d or black/bloody emesis or stool/ AMS/ syncope/ hi fever unresponsive to APAP to call 911- verbalized understanding of instruction [email or web address] Not available 06/30/2024 11:57:05 Plan of Treatment Reminders Order Date Submit Date Provider Last Modified By Organization Details Last Modified Time Details Appointments None recorded. Lab urinalysis, dipstick 2024 025 [facility], [address] [place] [address], [id number] 5 12:25:24 culture, urine 2024 025 GRANT [facility] (Centralized Electronic Ordering - All Locations), Patient Can Go To The Location Of Their Choice, [id number] 5 08:10:11 BMP, serum or plasma 2023 024 [facility], [address] [place] [address], [id number] 4 21:09:31 Referral None recorded. Procedures None recorded. Surgeries None recorded. Imaging None recorded. Medication Orders cephalexin 500 mg capsule 2024 025 [email or web address] [id number], [address] [place], [address], 11:41:31 cephalexin 500 mg capsule 2024 025 PAUL [id number], [address] [place], [address], 11:42:11 Patient TargetsNo targets recorded. Patient InstructionsNo instructions recorded. Reason for Referral None Reported. Results Created Date Observation Date Name Description Value Unit Range Abnormal Flag Note LastModifiedBy Organization Detail LastModifiedTime 07/01/1907/03/2024 URINE CULTU RE, UROLO GY KARLOS P urine culture, urology workup Final report abnormal Not Available [facility] ([facility]) [address] [facility], [place], [address], 07/03/2024 10:06:53 07/01/1907/03/2024 URINE CULTU RE, UROLO GY KARLOS P result 1 Escher ichia coli abnormal Cefaz quyen with an HERVE <=16 predi cts susce ptibi lity to the oral agent s cefac apolinar, cefdi salazar, cefpo doxim e, cefpr ozil, cefur oxime , cepha lexin , and lorac arbef when used for thera py of uncom plica malcom urina ry tract infec tions due to E. coli, Klebs iella pneum oniae , and Prote us mirab ilis. Great er than 100,0 00 colon y formi ng units per mL Not Available [facility] ([facility]) [address] [facility], [place], [address], 07/03/2024 10:06:53 07/01/1907/03/2024 URINE CULTU RE, UROLO GY KARLOS P antimicrobia l susceptibili ty Commen t S = Susce ptibl e; I = Inter media te; R = Resis tant P = Posit rolanda; N = Negat rolanda MICS are expre ssed in micro grams per mL Antib iotic RSLT# 1 RSLT# 2 RSLT# 3 RSLT# 4 Amoxi cilli n/Cla vulan ic Acid S Ampic illin S Cefaz quyen S Cefep alyssa S Cefox itin S Cefpo doxim e S Ceftr iaxon e S Cipro floxa alex S Ertap enem S Genta micin S Levof loxac in S Merop enem S Nitro furan toin S Piper acill in/Ta zobac frias S Tetra cycli ne R Tobra mycin S Trime thopr im/Daily lfa S Not Available [facility] ([facility]) [address] [facility], [place], [address], 07/03/2024 10:06:53 Result Notes None recorded. Medical Equipment None [...] Not Available Not Available No t Available cephalexin 500 mg capsule Take 1 capsule every 6 hours by oral route for 5 days. 2024 active Not Available Not Available Not Avai lable oseltamivir 75 mg capsule TAKE 1 CAPSULE [...] % 163 mm[Hg] 83 mm[Hg] Not Available [facility] [employer] 5 18:43:58 Date Recorded Oxygen saturation Oxygen saturation in Arterial blood by Pulse oximetry Respiratory rate Body weight Body height Body temperature Heart rate Systolic blood pressure Diastolic blood pressure Provider Name and Address Organization Details Last Updated DateTime 5 100 % 100 % 16 /min 89692.3 52 g 167.64 cm 98.3 [degF] 110 /min 150 mm[Hg] 82 mm[Hg] Not Available [facility] [employer] 5 10:41:41 Date Recorded Respiratory rate Heart rate Oxygen saturation Oxygen saturation in Arterial blood by Pulse oximetry Body temperature Systolic blood pressure Diastolic blood pressure Provider Name and Address Organization Details Last Updated DateTime 4 20 /min 78 /min 98 % 98 % 97.3 [degF] 130 mm[Hg] 80 mm[Hg] Not Available [facility] 4 15:05:47 Date Recorded Body height Body weight Respiratory rate Body temperature Oxygen saturation Oxygen saturation in Arterial blood by Pulse oximetry Heart rate Systolic blood pressure Diastolic blood pressure Provider Name and Address Organization Details Last Updated DateTime 4 162.56 cm 74446.6 g 14 /min 97.4 [degF] 97 % 97 % 106 /min 136 mm[Hg] 72 mm[Hg] Not Available [facility] 13:49:07 Social History None recorded. Functional Status None recorded. Mental Status None recorded. Family History Nothing Reported. Medical History No medical history recorded. Gynecological HistoryNo gynecological history recorded. Obstetrics History GPAL:G 0 P 0 0 0 0 Past Encounters Encounter ID Performer Location Encounter Start Date Encounter Closed Date Diagnosis/Indication Diagnosis SNOMED-CT Code Diagnosis ICD10 Code Diagnosis Note [id number] Katharina Richmond MD [address] [address] 10/19/2022 20:51:28 10/19/2022 23:56:47 Chronic neck pain 9397791603 107 M54.2 [id number] José Miguel Corbett MD [address] [address] 11/04/2022 13:57:27 11/07/2022 11:39:33 Vaginitis 67760496 N76.0 This 67-year-ol d female with a history of recurrent UTIs and vaginitis called [facility] daniiin of dysuria and vaginal irritation . Her U/A was negative. I suggested that she use her usual vaginitis cream and follow-up with her PCP. The patient agreed with this plan. [id number] Katharina Richmond MD [address] [address] 12/30/2022 17:02:43 01/02/2023 13:20:44 Urine: dark/concentrated [id number] R82.998 [id number] Arcelia Reyes MD [address] [address] 12/31/2022 14:38:06 01/02/2023 14:30:37 Urinary symptoms 478516384 R39.9 67 year old female who is nonverbal, being evaluated for foul smelling urine without any other symptoms. Patient was seen yesterday by [facility] - plan was to return to today to collect a urine sample. Family reports patient's previous UTI's have presented this way. Exam notable for normal vital signs. Presentati on consistent with foul smelling urine, possibly due to simple cystitis. Urine culture and urinalysis sent to lab. I have reviewed and agree with the assessment and plan as documented by the primer charging tool setter. I provided real-time medical direction for this encounter and was immediatel y available to provide additional phone-base d assistance as needed. We discussed the diagnostic uncertaint y of home visits and associated risks. We discussed the need to seek care urgently/e mergently in the setting of any new or worsening symptoms. [id number] José Miguel Corbett MD [address] [address] 01/24/2023 12:52:34 01/25/2023 10:24:39 Blood in urine 59508136 R31.9 This 67-year-ol d female who is incontinen t had a recent UTI. She was noted to have some blood in her underwear three days ago. She was unable to give a U/A today. I recommende d that they leave a container for a U/C to be sent to [facility]. She will follow up with her PCP. The patient agreed with this plan. [id number] MONROE TAYLOR MD [address] [address] 07/14/2023 14:34:31 07/14/2023 21:27:46 Seizure disorder 921105632 G40.909 [id number] Erich Gutierrez MD [address] [address] 08/04/2023 21:10:48 08/06/2023 00:44:19 Wheezing 78921587 R06.2 Viral uppe r respiratory tract infection [id number] J06.9 [id number] Katharina Richmond MD [facility] [address] [place], [place] [address] 0 09/14/2023 15:55:52 09/14/2023 16:30:24 Essential hypertension 13439850 I10 [id number] Neftali Aguero MD [facility] [address] [place] [address] 0 10/01/2023 17:36:22 10/01/2023 17:42:11 [id number] Neftali Aguero MD [facility] [address] [place] [address] 0 10/26/2023 14:58:04 10/26/2023 22:14:03 Pain of left hip joint [id number] 99312 M25.552 [id number] Katharina Richmond MD [facility] [address] [place] [address] 0 01/24/2024 13:43:05 01/25/2024 08:56:21 Irritant contact dermatitis caused by contact with urine and/or feces [id number] L24.A2 [id number] Emerald Louise MD [facility] [address] [place] [address] 0 05/25/2024 17:51:13 05/26/2024 23:10:51 Altered mental status 690107157 R41.82 Muscle weakness 61299770 R53.1 Weakness o f face muscles 17307829 R29.810 [id number] GERALDO MCGRATH MD [facility] [address] [place] [address] 0 06/30/2024 10:41:39 06/30/2024 17:51:11 Confusional state 926057057 R41.0 Acute urin cortney tract infection 959902909 N39.0 Health Concerns Section Related Observation LastModified by Organization Detai ls LastModified Time None Recorded Concern Status LastModified by Organization Details LastModified Time None Recorded Advance Directives Directive None Recorded Payers Insurance Date Sequence Insurance Name Policy Number Policy Bruno Covered Member ID Bruno Member ID Guarantor Name 06/30/2024 1 [facility] - DOS ON OR AFTER 2022 - DUAL ELIGIBLE - SENIOR LIVING OPTIONS AND ONE CARE (MEDICARE REPLACEMENT/ADV ANTAGE - HMO) Juani Ferro [id number] Juani Ferro Notes Date Note Type Note Provider Name and Address Organization Details Recorded Time 10/01/2023 text/html CRC Nurse Triage Notes (Niels Kothari): Reason For Request: Pt's daughter reporting shakes, some lethargy not as responsive, high BP this morning 196/110->188/106 now Chief Complaints: Weakness/Lethargy, Hypertension PMH: Hypertension, Neurologic (E.G. ALS/MS) Allergies: No Known Comments: Captain Assistant verified the member's name//address and phone number. [...] .................... .................... .................... .................... .................... .................... . Senior Programmer Note From Toro Tolbert: Upon arrival, [place] [facility] and EMS were on scene and treating the patient. No patient contact was made. Dr. Aguero was contacted by Phone and advised of this outcome. .................... .................... .................... .................... .................... .................... .................... . Disposition: Unfulfilled Neftali Aguero MD [address] [facility],[address], [place], [address], [employer] 10/01/2023 17:42:10 10/26/2023 text/html CRC Nurse Triage [...] 2 hours with abdominal pain Constipation Diarrhea no blood in stool Chief Complaints: Syncope/Dizziness/Li ghtheadedness, Pain, Abdominal Pain PMH: Hypertension, Neurologic (E.G. ALS/MS) Allergies: Unknown Comments: Captain Assistant verified the member's name//address and phone number. Education provided on the response time and the member was advised to monitor reported s/s and seek emergency treatment if needed. KT Cisse reports the member is having upper left leg pain/weakness - Abdominal pain - Denies N/V/D - Unsteady on her feet. S/S x 2 days - Alert to baseline - Denies CAIN - Denies CP - Denies SOB - Last BM was yesterday - No blood noted. Denies bloating. Wellness visit requested . .................... .................... .................... .................... .................... .................... .................... . Senior Programmer Note From Darrion Piedra: Dispatched to 81 y/o female. Upon arrival to pt residence providers was let into residence by MARKETING AUTOMATION ANALYST directing providers to pt side. Pt found somnolent on recliner, CAOX4 when roused, airway open and patent, no distress noted. EMS obtained vital signs as noted. MARKETING AUTOMATION ANALYST contacted pt daughter who spoke to providers [...] [place] relaying information learned from daughter. requested pt obtain 100mg Tylenol three times a day PO, and if pt has difficulty swallowing to crush pills or give liquid Tylenol. [facility] also emphasized the need for pt to go to PCP appointment on Monday. No other orders given for providers, providers relayed information to daughter and MARKETING AUTOMATION ANALYST, then left the residence, returning to service. All times approximate. .................... .................... .................... .................... .................... .................... .................... . Disposition: Fulfilled Neftali Aguero MD [address] [facility],[address], [place], [address], [employer] 10/26/2023 15:49:38 01/24/2024 text/html CRC Nurse Triage Notes (Simi Chun): Reason For Request: Patient is lethargic bp 125/86. Slow to move, doesn't feel well. Chief Complaints: Fatigue, Weakness PMH: Hypertension, Epilepsy/Seizure Disorder, Cancer, Transient Ischemic Attack (TIA) Comments: Daughter reports patient is weak, lethargic, not talking much today. Urine does have a slight odor per MARKETING AUTOMATION ANALYST. No resp symptoms. Not complaining of any pain. BP 125/86. Bowel movements every other day. Unknown PO intake recently. No known seizure activity. Education provided on the response time and the member was advised to monitor reported s/s and seek emergency treatment if needed. Senior Programmer Organization Information for Yamil Kingston [employer] Name: [facility] Address: [address] [place] [address], [place] [id number], [employer] Power Plant Engineer: Harvinder Ortega MD IA No.: [id number] Senior Programmer POC Test Results from Yamil Kingston [facility] (13:57:46) pH: 7.399 pH units pCO2: 45 mmHg pO2: 63.8 mmHg Na: 142 mmol/L K: 3.8 mmol/L iCa: 1.21 mmol/L Cl: 105 mmol/L TCO2: 28.0 mEq/L Hct: 42 % Hb: 14.4 g/dL Glu: 138 mg/dL Lac: 1.45 mmol/L Cr: 0.66 mg/dL BUN: 11 mg/dL A .................... .................... .................... .................... .................... .................... .................... . Senior Programmer Note From Yamil Kingston: Patient alert and [...] Unable to obtain clean urine sample. Despite MARKETING AUTOMATION ANALYST assistance sample contaminated with feces.Epoc to [place] [...] .................... .................... .................... .................... . Disposition: Murali Richmond MD [address] [facility],[address], [place], [address], [place] [employer] 01/24/2024 20:39:01 05/25/2024 text/html CRC Nurse Triage [...] falls or trauma. When asked, daughter reports child care development specialist forgot to give patient her keppra this morning, and wonder if she had an unwitnessed seizure. Patient is alert. RED flags discussed, daughter verbalized understanding. She would like mother assessed. .................... .................... .................... .................... .................... .................... .................... . Senior Programmer Note From Tony Page: Dispatched to the [...] a walker normally until 1530 when leaving [facility]. Patient was brought home by family, and she developed a tremor. Patient was assessed for stroke as soon as facial droop was recognized and [facility] and [facility] were called so pt could go to the hospital for scans as quickly as possible. Pt was unable to do most of the fast exam, with facial droop, left sided weakness in snath handle assembler strength, and left arm drift when holding [...] .................... . Disposition: Murali Louise MD [address] [facility],[address], [place], [address], [employer] 05/25/2024 18:48:50 06/30/2024 text/html CRC Nurse Triage Notes (Niels Kothari): Reason For Request: Pt's daughter reporting 2-3 days of incoherence/altered mental status Denies: Unable to void greater than 5 hours Erection that will not go away after 2 hours Fall or trauma that results in urinary incontinence in the setting of pain Fall or injury that results in incontinence in the absence of pain Lower back pain either unilateral or bilateral, unable to void, painful urination -hematuria Chief Complaints: Confusion PMH: Hypertension, Epilepsy/Seizure Disorder, Cancer, Transient Ischemic Attack (TIA) PMH Reviewed at 06/30/2024 Allergies Reviewed at 06/30/2024 Comments: 69 y.o female complains of Confusion Pt's daughter calling reporting patient with increased confusion for the last 2-3 days. Daughter reports pt gets frequent UTIs, reports pt's urine is malodorous. Denies hematuria, fever or chills. Daughter reports pt is more tired and slower then normal, patient still eating and drinking. I provided information on the mobile health provider response time and advised the patient and/or caregiver to monitor reported signs and symptoms. I discussed the warning signs of when to seek emergency care. Senior Programmer Organization Information for [employer] Legal Name: [employer] Address: [address] [place] [address], [employer] Power Plant Engineer: Drew Gross MD CLIA No.: [id number] Senior Programmer POC Test Results from [employer] Urine Dipstick (11:37:44) Urine leukocytes: 125++ ROSE MARY Urine nitrites: + NIT Urine urobilinogen: 0.2 URO Urine protein: 30+ PRO Urine pH: 6.0 pH Urine blood: 50 BLO Urine specific gravity: 1.020 SG Urine ketones: 5+- KET Urine bilirubin: - STEPHANIE Urine glucose: - GLU .................... .................... .................... .................... .................... .................... .................... . Senior Programmer Note From Robert Johnson: YOHANA makes pt contact. She is sitting in her chair in the living room of an immaculate home she shares w/ her . She is conscious and alert and not in acute distress. Her head is listing to the R shoulder and she has a walker nearby. No ashen or corey color is noted, no stridor or sonorous respirations are present. No observable facial droop or slurred speech are observed and she is not bleeding anywhere. Daughter lives upstairs and provides pt w/ assistance throughout the day when needed. Pt is a poor historian. She is A&Ox3, but answers all questions using appropriate language, but is confused about time and events at times. She endorses difficult and painful urination that is dark yellow in color and malodorous for the past 3 days. She is unsure if she has seen any blood or if it is cloudy. She denies cp, sob, fevers/chills, n/v/d, or abdominal/flank, or back pain. Pt begins to speak about being angry w/ her sister because she likes to argue and speaks about being late for [facility]ian, however daughter confirms these things are part of what she has witnessed to be pt's confusion. Daughter confirms s/s have been present for about 3 days and she has also noticed the pt is weaker than normal, needing more assistance standing and balancing while walking w/ her walker. Last UTI was about 2 months ago. No new seizure activity has been noted and no recent changes to any of her medications. YOHANA obtains vital signs and pt is assessed. Head is atraumatic and normocephalic. Pupils are PERRL, sclera are clear, and extraocular movements are intact. Neck is supple and trachea is midline. Listing of the head to the R is baseline. Lung sounds are clear to auscultation bilaterally and chest rises and falls equally w/ respirations; no accessory muscle usage is noted. Abdomen is soft and nontender in all four quadrants w/ no guarding, distension, or pulsating masses noted. Pelvis is atraumatic and nontender, genitalia are normal in appearance. No peripheral edema is noted and CMS is intact in all four extremities. Pt is provided a urinary hat and castile soap for a clean catch of urine. After waiting over an hour, pt says she feels she needs to go, however, she has a shy bladder and is unable to provide a sample. [facility] contacts [facility] and asks to perform a straight cath and [facility] approves. Pt walks w/ her walker to the bedroom and daughter assists her to undress and lay on the bed. Pullups are removed and pt is placed supine w/ feet together and knees up and open as much as possible. Pt is prepped w/ three chlorhexidine swabs and after achieving good visualization of the urethral opening, straight catheter is inserted until urine is flowing in to the bag. Bladder is drained and urine is noted to be dark yellow in color w/ a cloudy appearance. Catheter is removed and daughter assists pt to redress. Sample is obtained for culture and UA is performed and results are consistent w/ UTI. [facility] contacts [facility] and discusses the above. [facility] orders 500mg cephalexin PO for pt and calls in a course to pt's pharmacy. [facility] administers 500mg x1 tablet PO to pt. [facility] informs of warning signs of when to seek emergency care. Pt and thank [place] for coming. [facility] is clear. Report completed by THONG Johnson [id number]. [facility] Lab Orders: urinalysis, dipstick: Performed culture, urine: Performed [facility] Medication Orders: cephalexin 500 mg capsule: Administered .................... .................... .................... .................... .................... .................... .................... . [facility] Consulted: Geraldo Mcgrath .................... .................... .................... .................... .................... .................... .................... . Disposition: Fulfilled GERALDO MCGRATH MD [address] [place] [address],[address] [facility], [place], [place], [id number], HAILY MYLES 06/30/2024 12:44:33 OBGyn Episode No OBEpisode recorded.
--- OUTSIDE RECORDS SUMMARY | 2024-08-20 15:37 | XMS_ITS | Clinical Summary ---
Author Organization [facility] Address [address] [place] [address] Care Team Providers Care Desizing Pad Operator Name Role Phone Nicole Denny Juan HERNANDEZ Primary Care Provider Surgical History Surgery Date Site/Laterality Comments OTHER SURGICAL HISTORY PROCEDURE: [place] CRANIEC TREPHINE BONE FLP BRAIN TUMOR SUPRTENTOR; COMMENT: history of craniotomy Medical History Medical History Date Comments Respiratory failure ([facility] V24, [facility] V28) DX:Respiratory failure (HCC) Essential hypertension DX:Essent ial hypertension Stroke (cerebrum) (CMS/HCC V24, CMS/HCC V28) DX:Stroke (cerebrum) ([facility]) Social History Tobacco Use Types Packs/Day [...] Documents on File Type Date Recorded 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
--- OUTSIDE RECORDS SUMMARY | 2024-08-20 15:37 | XMS_ITS | Clinical Summary ---
Author Organization [facility] Address [address] [place] [address] Care Team Providers Care Casing Crew Name Role Phone Unknown Primary Care Provider [phone] Social History Tobacco Use Types Packs/Day Years [...] Density (Females,Ag es 65 and older) 05/16/2019 COVID-19 Vaccine ( - 2023-2 5 season) 2023 Influenza Vaccine 09/20/2024 RSV Vaccine 60 years and old er and Patients (1 - 1-dose 75+ series) 2029 Hepatitis B Vaccines Aged Out No long er eligible based on patient's age to complete this topic Insurance [facility] MEDICARE PART A & B Care Teams Casing Crew Relationship Specialty Start Date End Date Unknown Unknow Provider Address PCP - General 01/03/22
--- OUTSIDE RECORDS SUMMARY | 2024-08-20 15:38 | XMS_ITS ---
Author Name [facility] Organization Unknown Encounters Encounter Type Encounter Reason Primary Diagnosis Location Date Ambulatory RESPIRATORY FAILURE [email or web address] 01/03/2022 Care Team Organization Name Specialty Phone Email Start Date End Da te [email or web address] 01/04/2022 [email or web address] 01/03/2022 01/03/2022
--- NOTE | 2024-08-21 09:36 | MHC.SL.MBSTD ---
Referring provider: Jana Gray [facility] Reason for Referral: Coughing after swallowing liquid medication Type of Treatment: 00329 Clinical Swallowing Evaluation Date of Plan of Treatment: 08/20/24 Onset of Symptoms/Illness: 02/11/21 Date Treatment Started: 08/20/24 Medical Diagnosis: Torticollis, hx stroke, brain cancer, craniotomy Speech & Language Primary Diagnosis:R13.10 Dysphagia Comments: Patient is a 69 year old female referred for a modified barium swallow study by Jana Gray RN IMMUNOLOGY from the GI office. Patient was accompanied to this exam by her daughter, Jessie, and TIE MAKER. Jessie reports patient coughing after swallowing liquid-form medication, Keppra. Jessie reports this happens only at night and not always. Patient was seen by [facility] during multiple prior hospitalizations [id number], most recently recommended a chopped/advanced (NDD3) diet. Jessie reports patient worked with an [facility] through the [facility] and was advanced to regular texture solids and thin liquids before being discharged. Patient has severe torticollis and drinks best from straws. Pertinent medical history also includes brain tumor, craniotomy, CVA, seizure disorder, and TERI. When seen by GI in May, patient also complained of reflux, for which she was sent a script for Nexium and advised on dietary triggers. Medical History: Medical History (Updated 06/05/24 @ 13:35 by Jana Gray, [facility]) Dysphagia Seizure Brain cancer Metabolic alkalosis with respiratory acidosis Encounter for palliative care Sebaceous cyst of axilla Essential hypertension PVC (premature ventricular contraction) PAC (premature atrial contraction) Torticollis, acquired UTI (urinary tract infection), bacterial Bladder incontinence Unspecified urinary incontinence Abscess Symptomatic PVCs Physical exam, annual Stroke Insomnia Closed fracture of fibula with routine healing Fracture of distal end of fibula Right ankle pain HTN (hypertension) DVT (deep venous thrombosis) Surgical History Hx of section Hx of tubal ligation H/O craniotomy Dysphagia Related: Risk for Aspiration: Neurological Condition Current Dietary Consistencies: Regular Current Liquid Intake Consistencies: Thin Current Medication Administration Method: Whole with Liquid Assessment Oral Motor Exam: Facial Symmetry: Symmetrical Facial Movement: Controlled Mouth Occlusion: Normal Oral-Facial Teeth Characteristics: Partially Missing Tongue Size: Normal ? Is patient able to manage secretions?: Yes Clinicial Observations: This exam was performed by the radiologist and the speech pathologist. Patient was sitting upright in a chair. Due to patient's torticollis, patient was positioned in oblique view to allow for viewing of the pharynx, though exam was somewhat limited in rating of the oral phase. Patient trialed the following consistencies: thin liquid (via individual straw sips) puree (pudding mixed with barium) regular (Ary Doone cookie coated in barium pudding) Patient was able to produce adequate suction to drink from a straw. Unable to visualize lip closure on imaging, but clinically, patient appeared to maintain bolus well in the oral cavity and no anterior spilling was observed. AP bolus transport was mildly delayed, but with brisk tongue movement. Unable to visualize oral residue on imaging, but upon clinical oral cavity check, patient appeared to have just trace barium coating the tongue. Pharyngeal swallow trigger was timely, with complete laryngeal elevation and complete epiglottic inversion. No evidence of aspiration or penetration during this exam. There was complete vallecular and pyriform clearing. Modified Barium Swallow Study: Oral Phase: Impaired Liquid Via Straw ? Labial Seal: Intact ? A/P Transit: Impaired ? Lingual Movement: Intact ? Rotary Mastication: Did Not Test ? Premature Spillage: Intact ? Oral Residue: Did Not Test Pureed Food ? Labial Seal: Intact ? A/P Transit: Impaired ? Lingual Movement: Intact ? Rotary Mastication: Did Not Test ? Premature Spillage: Intact ? Oral Residue: Did Not Test Regular/Unaltered ? Labial Seal: Intact ? A/P Transit: Impaired ? Lingual Movement: Intact ? Rotary Mastication: Impaired ? Premature Spillage: Intact ? Oral Residue: Did Not Test Pharyngeal Phase: Intact Thin Liquid via Straw ? Velopharyngeal Closure: Did Not Test ? Tongue Base Retraction: Did Not Test ? Laryngeal Excursion: Intact ? Epiglottal Deflection: Intact ? Pharyngeal Peristalsis: Did Not Test ? Valleculae Clearing: Intact ? Pyriform Clearing: Intact ? UES Opening: Intact ? Penetration: Intact ? Aspiration: Intact Pureed Food ? Velopharyngeal Closure: Did Not Test ? Tongue Base Retraction: Did Not Test ? Laryngeal Excursion: Intact ? Epiglottal Deflection: Intact ? Pharyngeal Peristalsis: Did Not Test ? Valleculae Clearing: Intact ? Pyriform Clearing: Intact ? UES Opening: Intact ? Penetration: Intact ? Aspiration: Intact Regular ? Velopharyngeal Closure: Did Not Test ? Tongue Base Retraction: Did Not Test ? Laryngeal Excursion: Intact ? Epiglottal Deflection: Intact ? Pharyngeal Peristalsis: Did Not Test ? Valleculae Clearing: Intact ? Pyriform Clearing: Intact ? UES Opening: Intact ? Penetration: Intact ? Aspiration: Intact Impressions and Recommendations Recommendation for Speech Therapy: NA:Typical Evaluation Text Comment: Patient presents with mild oral phase dysphagia, characterized by mildly prolonged chewing and delayed AP transport, with risk of aspiration associated with poor positioning d/t torticollis. No evidence of aspiration or penetration during this exam. Good clearance noted in the oral and pharyngeal cavities. Recommend patient continue on regular texture diet, and thin liquids, which she manages best when drinking from a straw. Patient with some missing teeth; she is advised to avoid foods which are overly tough or hard to chew. Pills to be administered whole or crushed in puree depending on patient's tolerance/preference. Follow with additional bites of puree to clear. Patient is encouraged to feed herself when possible, but is to be supervised at meals and assisted as needed with opening of containers, ensuring utensils are within reach, and throughout feeding as needed. Further speech therapy is not warranted at this time. Recommend continued monitoring of patient's dysphagia, if there are any changes or worsening of symptoms, consult with PCP at which point a repeat-assessment may be warranted. Patient Education Completed: Yes Patient/Caregiver Education: Described Results of Evaluation Family/Caregivers expressed understanding of results Comment: It is important to note MBSS objective studies are snapshots in time and Patient function might vary with factors such as time of day or concomitant medical conditions. For this reason, the final treatment plan for this patient should rest with their medical care team. Additional recommendations should be considered with the totality of the Patient in mind. Thank for the opportunity to participate in the care of this patient. If you have any questions about the content of this report, please contact the [facility] at [facility]. Architect In Training Clinican/Clinical Fellow: No Supervisory Statement: N/A Speech Language Pathologist: Renetta Samaniego M.A., CCC-[facility]
== END 2024-08-20 14:32 | disposition home or self-care (01) ==
LOC: HO.XRAY 14:31
PROVIDERS: PCP Nurse Practitioner Family; Visit Provider Nurse Practitioner Family
DX: R13.10 Dysphagia, unspecified (principal)
CPT/HCPCS: 74230

== ENCOUNTER → 2024-08-20 14:33 | Outpatient (BNV) | payer OTHER, SELFPAY | PROVIDERS: PCP Nurse Practitioner Family; Visit Provider Radiology Diagnostic Radiology | DX: R13.10 Dysphagia, unspecified (principal) | CPT/HCPCS: 74230 ==

== ENCOUNTER 2024-08-31 08:56 | Outpatient (REF) | payer OTHER, SELFPAY ==
--- OUTSIDE RECORDS SUMMARY | 2012-10-11 05:54 | XMS_ITS | Continuity of Care Document ---
Author Organization hilario [facility] Address [address] [place] [address] Phone Care Team Providers Care Shirt Line Operator Name Role Phone Unavailable Unavailable Unavailable Advance Directives Directive Yes / No Effective Date File Name No Information Encounters Encounter Description Practice Location Reason(s) For Visit Diagnoses Date Provider Providers Copied on Encounter hilario Martinez [facility], [address], [place], [place], [id number], [place] tel:[phone] [facility] No Information No Information Family History Family Member Type Diagnosis Age At Onset No Information Payers Payer name Insurance type Covered green party ID Authoriza tion(s) No Information Social History Type Description Quantity Date Captured Comments Sex Female Smoking Status No Information Chief Complaint And Reason For Visit No [...]
--- OUTSIDE RECORDS SUMMARY | 2024-08-31 08:58 | XMS_ITS | Clinical Summary ---
Author Organization [facility] Address [address] [place] [address] Care Team Providers Care Chief Technician Name Role Phone Nicole Denny Juan HERNANDEZ Primary Care Provider [phone] Surgical History Surgery Date Site/Laterality Comments OTHER SURGICAL HISTORY PROCEDURE: [place] CRANIEC TREPHINE BONE FLP BRAIN TUMOR SUPRTENTOR; COMMENT: history of craniotomy Medical History Medical History Date Comments Respiratory failure ([facility] V24, [facility] V28) DX:Respiratory failure (HCC) Essential hypertension DX:Essent ial hypertension Stroke (cerebrum) (CMS/HCC V24, CMS/HCC V28) DX:Stroke (cerebrum) ([facility]) Social History Tobacco Use Types [...] 2023-2 5 season) 2023 Influenza Vaccine (#1) 2024 RSV Immunization Adult Patie nts (1 [...] Documents on File Type Date Recorded 

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
--- OUTSIDE RECORDS SUMMARY | 2024-08-31 08:58 | XMS_ITS | Clinical Summary ---
Author Organization [facility] Address [address] [place] [address] Care Team Providers Care Gleason Gear Generator Name Role Phone Unknown Primary Care Provider [phone] Social History Tobacco Use Types Packs/Day Years [...] patient's age to complete this topic Insurance [facility] MEDICARE PART A & B Care Teams Gleason Gear Generator Relationship Specialty Start Date End Date Unknown Unknow Provider Address PCP - General 01/03/22
--- OUTSIDE RECORDS SUMMARY | 2024-08-31 08:58 | XMS_ITS | Clinical Summary ---
Author Organization [employer] Address [address] [facility] [address] [place] [address] Care Team Providers Care Switchboard And Control Room Operator Name Role Phone Unavailable Primary Care Provider [...] season) 2023 06/25/2020, 05/28/2020 Influenza Vaccine (#1) 2024 RSV Patients and Patients Aged 60 years [...]
[2024-08-31 09:22] LABS: MANUAL DIFF FLAG NO
[2024-08-31 09:40] LABS: Hematocrit 43.5 % (37.0-47.0); Hemoglobin 13.6 g/dl (12.0-16.0); Imm Gran Abs Auto 0.01 X10*3/uL (0.00-0.03); Imm Gran Pct Auto 0.1 % (0.0-0.4); Lymphocytes Absolute Auto 2.5 X10*3/uL (1.2-4.9); Mean Corpuscular HGB Conc 31.3 g/dl (31.0-35.0); Mean Corpuscular Hemoglobin 27.3 pg (27.0-33.0); Mean Corpuscular Volume 87.2 fL (80.0-98.0); NRBC Abs Auto 0.000 X10*3/uL (0.0-0.012); NRBC Pct Auto 0.0 /100WBC (0.0-0.2); Platelet Count 272 X10*3/uL (160-400); Red Blood Count 4.99 X10*6/uL (4.20-5.50); White Blood Count 7.1 X10*3/uL (4.8-10.8)
[2024-08-31 10:29] LABS: Alanine Aminotransferase 24 U/L (0-31); Albumin Level 3.9 g/dL (3.5-5.0); Alkaline Phosphatase 107 U/L (39-117); Anion Gap 9 (12-20); Aspartate Amino Transferase 23 U/L (5-31); Blood Urea Nitrogen 13 mg/dL (9-16); Calcium 9.1 mg/dL (8.4-10.2); Carbon Dioxide 32 mmol/L (22-29); Chloride 105 mmol/L (96-108); Cholesterol 142 mg/dL (<200); Estimated Glomerular Filt Rate > 60; HDL Cholesterol 64 mg/dL (>40); Potassium 3.8 mmol/L (3.3-5.1); Sodium 142 mmol/L (135-145); Total Protein 6.9 g/dL (6.5-8.0); Triglycerides 38 mg/dL (<150)
[2024-08-31 11:05] LABS: Appearance Urine Cloudy; Glucose Urine UA Negative (Negative); PH 6.0 (5.0-9.0); Specific Gravity - Urine 1.010 (1.005-1.025); UMIC TRIGGER UACC YES
[2024-08-31 11:10] LABS: UACC Culture Trigger YES
== END 2024-08-31 08:57 | disposition home or self-care (01) ==
LOC: HO.LAB 08:56
PROVIDERS: PCP Nurse Practitioner Family; Visit Provider Nurse Practitioner Family
DX: Z00.00 Encounter for general adult medical examination without abnormal findings (principal); E78.5 Hyperlipidemia, unspecified
CPT/HCPCS: 36415; 80053; 80061; 81001; 81003; 82306; 84443; 85025; 87086

== ENCOUNTER 2024-09-03 11:57 | Outpatient (AMB) | payer OTHER, SELFPAY ==
--- NOTE | 2024-09-03 12:00 | A.OFFPC_ITS ---
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 Is last menstrual period known: No Post menopausal: No Patient : No Allergies apple (Apple) Allergy (Severe, Verified 09/03/24 12:22) THROAT SWELLING pollen extracts (POLLEN) Allergy (Intermediate, Verified 09/03/24 12:22) SNEEZING COUGHING ALOT kiwi (Kiwi (Actinidia Chinensis)) Adverse Reaction (Intermediate, Verified 09/03/24 12:22) VOMITING Medication List - Last Reconciled 09/03/24 by Neto Aguirre CNP amlodipine 5 mg PO DAILY 90 days aspirin 81 mg PO DAILY atorvastatin 40 mg PO DAILY [automatic blood pressure cuff As directed] cholecalciferol (vitamin D3) 50 mcg PO DAILY 90 days docusate sodium 100 mg PO BEDTIME levetiracetam 1,000 mg (10 mL) PO BID 90 days lisinopril 20 mg See Protocol PO DAILY miscellaneous medical supply Disposable Diaper-PullUps. size large 8x daily As directed, 30 day supply multivitamin 1 tab PO DAILY rivaroxaban (Xarelto) 20 mg PO DAILY 30 days sennosides (Natural Senna Laxative) 17.2 mg (2 x 8.6 mg) PO BEDTIME Shower Chair (Chair, shower) [place] rolling shower chair with hole to also be used as a commode Tobacco use date assessed: 09/03/24 Fall risk assessment: No Falls in past year Last assessed Fall Risk: 09/03/24 Dental Screening Dental Screen Date: 09/03/24 Did you have a dental visit in the last 12 months?: No Did you have a dental problem in the last 6 months where you did not have access to dental care?: No Was dental information given to patient?: Patient has dentist HPI HPI Comments History of Present Illness Details 69-year-old female, accompanied by her n iece, presents for hypertension and review of recent lab results follow-up. She admits to taking her medications as prescribed without adverse reactions. She admits to making healthy lifestyle changes. She offers no complaints and denies acute symptoms at this time. Patient's niece escorted the patient's in and out of the office in a wheelchair. [facility] Medical History (Updated 06/21/24 @ 09:01 by Neto Aguirre CNP) Dysphagia Seizure Brain cancer Metabolic alkalosis with respiratory acidosis Encounter for palliative care Sebaceous cyst of axilla Essential hypertension PVC (premature ventricular contraction) PAC (premature atrial contraction) Torticollis, acquired UTI (urinary tract infection), bacterial Bladder incontinence Unspecified urinary incontinence Abscess Symptomatic PVCs Physical exam, annual Stroke Insomnia Closed fracture of fibula with routine healing Fracture of distal end of fibula Right ankle pain HTN (hypertension) DVT (deep venous thrombosis) Surgical History Hx of section Hx of tubal ligation H/O craniotomy Family History Mother Diabetes Father Heart disease Family/Other Breast cancer Brain cancer Diabetes Social History Household Members: Unknown / Unable to assess Housing: Unknown / Unable to assess Housing Other:: Lives with Spouse Unable to assess alcohol history related to: Unable to respond Alcohol intake: never Comment: family in room Patient Tobacco Use Status: Never used Tobacco e-Cigarette/Vaping Use: Never Used Second Hand Smoke Exposure: No Advance Directives Date on File: 02/12/20 service: No Current occupational status: retired and disabled Current occupational exposures/hazards: No Cognitive needs: Yes Hearing needs: No Vision needs: Yes Female Reproductive History Menstrual Age of Menarche: 9 Questionnaire Thrive Questionnaire Date Thrive assessed: 04/05/24 I am a: Parent/Caregiver What is your living situation today?: I have a steady place to live Within the past 12 months, did the food you bought not last and you didn't have the money to get more?: Never true Within the past 12 months, did you worry whether your food would run out before you got money to buy more?: Never true Do you have trouble paying for medicines?: No Do you have trouble getting transportation to medical appointments?: No Do you have trouble paying your heating and electricity bill?: No Do you have trouble taking care of your child, family member or friend?: No Do you have trouble with day-to-day activities such as bathing, preparing meals, shopping, managing finances, etc.?: Yes Are you currently unemployed and looking for a job?: Yes Are you interested in more education?: No Please select the resources that you would like help with: None Currently or been in a relationship where the following occur: No concerns reported THRIVE Score: 0 MADAY-7 AMB Questionnaire MADAY-7 Date MADAY - 7 assessed: 04/05/24 Source: Developed by Drs. Horace Pineda, Daya Durbin, Romero Cat and colleagues, with an educational loren from [employer]. Review of Systems Const Details: Const Denies chills, Denies fatigue, Denies fever(s), Denies headache(s) and Denies weakness ENT Denies dizziness and Denies headache(s) Card Denies chest pain, Denies lightheadedness, Denies dyspnea and Denies other (Palpitations) Resp Denies cough, Denies dyspnea, Denies wheezing and Denies other ( shortness of breath) GI Denies abdominal pain, Denies melena, Denies hematochezia, Denies change in bowel habits, Denies dyspepsia and Denies nausea Denies hematuria and Denies dysuria Musc Reports unsteady gait at baseline, Denies myalgias, Denies arthralgias, Denies numbness and Denies tingling Skin/Breast Denies rash, Denies unusual bruising and Denies wounds Neuro Reports unsteady gait at baseline, Denies dizziness, Denies headache(s), Denies memory loss, Denies numbness, Denies Sensory deficit (Neuro), Denies tingling and Denies weakness Psych Denies anxiety, Denies depression, Denies memory loss Endo Denies cold intolerance, Denies fatigue, Denies heat intolerance, Denies polydip annelise and Denies polyuria Aller/Immun Denies wheezing Physical exam (Primary Care) Vital Signs: Last Vital Signs Temp 98.4 F 09/03/24 12:06 Pulse 68 09/03/24 12:06 Resp 16 09/03/24 12:06 BP 122/67 09/03/24 12:06 Pulse Ox 99 09/03/24 12:06 Oxygen Delivery Method Room Air 09/03/24 12:06 Tobacco/Smoking Status: Tobacco use Status Tobacco use date assessed 09/03/24 09/03/24 12:09 Patient Tobacco Use Status Never used Tobacco 09/03/24 12:09 e-Cigarette/Vaping Use Never Used 09/03/24 12:09 Thrive Assessment: Date of Thrive Assessment Date Thrive assessed 04/05/24 09/03/24 12:09 Currently or been in a relationship where the following occur: No concerns reported Const Other: General: no acute distress and well developed Nutritional Appearance: well nourished Orientation/consciousness: patient oriented x3 HENMT Head: Yes normocephalic and Yes atraumatic Eyes General: appearance normal, both eyes and all related structures Pupils: Equal, round and reactive pupils present EOM: EOMs intact bilaterally Resp Effort & Inspection: normal respiratory effort Auscultation: clear to auscultation bilaterally Cardio Rate: regular rate Rhythm: regular rhythm Heart sounds: S1 normal heart sound present, S2 normal heart sound present, no gallops, no murmurs and no rubs GI Palpation (GI): No Abdominal aortic bruit present, Soft to palpation, nontender, No hepatosplenomegaly present and No Rebound tenderness present Auscultation: normal bowel sounds General: Yes no CVA tenderness Back/Spine/Pelvis Back: no CVA tenderness Cervical Spine: cervical ROM normal and No Cervical spine tenderness Thoracic/Lumbar Spine: thoraco-lumbar ROM normal, No pain with thoraco-lumbar ROM, No thoracic spinal tenderness and No lumbar spinal tenderness Extrem General: Yes normal to inspection, No edema and No calf tenderness Skin General: warm and dry. Normal skin color. Normal skin turgor Neuro General: patient oriented x3, no focal neuro deficit Cranial nerves: Yes Equal, round and reactive pupils present Cognition (Neuro): normal cognition Gait exam (Neuro): Not assessed Sensory Exam: No Sensory deficit (Neuro) Psych Appearance: grossly normal Affect: normal affect Attitude: cooperative Thought process: Normal thought process present Coding Level of Care Code Est Pt Level 3 (11280) Diagnoses Essential hypertension I10 Hypertension type: essential hypertension Assessment & Plan Assessment & Plan (1) HTN (hypertension): Code(s): I10 - Essential (primary) hypertension Category: Medical Qualifiers: Hypertension type: essential hypertension Qualified Code(s): I10 - Essential (primary) hypertension Plan: Blood pressure is 122/67, within goal of less than 130/80. Continue current treatment regimen. Low-sodium diet encouraged. Follow-up in 3 months or sooner with symptoms or concerns. Verbalized understanding and agreed with plan. Recent benign lab results reviewed with the patient.
[2024-09-03 12:06] VITALS: BP 122/67; PULSE 68; RESP 16; TEMP 36.9; O2SAT 99
--- OUTSIDE RECORDS SUMMARY | 2024-09-03 13:15 | XMS_ITS | Clinical Summary ---
Author Organization [facility] Address [address] [place] [address] Care Team Providers Care Gear And Spline Grinder Name Role Phone Nicole Denny Juan HERNANDEZ Primary Care Provider Surgical History Surgery Date Site/Laterality Comments OTHER SURGICAL HISTORY PROCEDURE: AR CRANIEC TREPHINE BONE FLP BRAIN TUMOR SUPRTENTOR; COMMENT: history of craniotomy Medical History Medical History Date Comments Respiratory failure ([facility] V24, [facility] V28) DX:Respiratory failure (HCC) Essential hypertension DX:Essent ial hypertension Stroke (cerebrum) (CMS/HCC V24, CMS/HCC V28) DX:Stroke (cerebrum) ([facility]) Social History Tobacco Use Types Packs/Day [...] Documents on File Type Date Recorded Patient Field Reviewer Expl anation Health Care Decision (hx) 03/13/2018 AD FALK DIRECTIVE Health Care Decision (hx) 03/13/2018 AD FALK DIRECTIVE Health Care Decision (hx) 03/13/2018 AD FALK DIRECTIVE Care Teams Gear And Spline Grinder Relationship Specialty Start Date End Date Nicole Denny NP [address] [place] [address] [address] [place] [address] PCP - General 04/29/22
--- OUTSIDE RECORDS SUMMARY | 2024-09-03 13:15 | XMS_ITS | Clinical Summary ---
Author Organization [facility] Address [address] [place] [address] Care Team Providers Care Portfolio Consultant Name Role Phone Unknown Primary Care Provider [phone] Social History Tobacco Use Types Packs/Day Years [...] patient's age to complete this topic Insurance [facility] MEDICARE PART A & B Care Teams Portfolio Consultant Relationship Specialty Start Date End Date Unknown Unknow Provider Address PCP - General 01/03/22
--- OUTSIDE RECORDS SUMMARY | 2024-09-03 13:16 | XMS_ITS | Data Portability ---
Author Organization [employer] Address [address] [place] [address] Care Team Providers Care Hide Dyer Name Role Phone HIM CCA OTHER Assessment Encounter Date Assessment Date Assessment LastModified by Organization Details LastModified Time 10/01/2023 10/01/2023 Patient transported to ED prior to my involvement in this case. I did not provide clinical services for this visit. pallfather Not available 10/01/2023 17:40:23 10/26/2023 10/26/2023 I have reviewed and agree with the Assessment and Plan as documented by the Surgical Garment Assembler. I provided real-time medical direction via phone [...] Assessment and Plan as documented by the Surgical Garment Assembler. Patient given the opportunity to ask questions. [...] other changes noted in the patient. Per career services coordinator on the scene, vital signs are stable [...] available 01/24/2024 20:38:44 05/25/2024 05/25/2024 Evaluation in [facility] field was performed by my career services coordinator colleague, as noted above, I provided real-time [...] performed by this service. Disposition: Transport to [facility] Not available 05/25/2024 18:48:20 06/30/2024 06/30/2024 Mrs. [...] Assessment and Plan as documented by the Surgical Garment Assembler. We discussed the diagnostic uncertainty of home [...] None recorded. Lab urinalysis, dipstick 2024 025 [facility], [address] [place] [address], [id number] 5 12:25:24 culture, urine 2024 025 [place] [facility] (Centralized Electronic Ordering - All Locations), Patient Can Go To The Location Of Their Choice, [id number] 5 08:10:11 BMP, serum or plasma 2023 024 [facility], [address] [place] [address], [id number] 4 21:09:31 Referral None recorded. Procedures None recorded. Surgeries None recorded. Imaging None recorded. Medication Orders cephalexin 500 mg capsule 2024 025 [email or web address] [id number], [address] [place], [address], 11:41:31 cephalexin 500 mg capsule 2024 025 [place] [id number], [address] [place], [address], 11:42:11 Patient TargetsNo targets recorded. Patient InstructionsNo instructions recorded. Reason for Referral None Reported. Results Created Date Observation Date Name Description Value Unit Range Abnormal Flag Note LastModifiedBy Organization Detail LastModifiedTime 07/01/1907/03/2024 URINE CULTU RE, UROLO GY KARLOS P urine culture, urology workup Final report abnormal Not Available [facility] ([facility]) [address] [facility], [place], [address], 07/03/2024 10:06:53 07/01/1907/03/2024 URINE CULTU RE, UROLO [...] ng units per mL Not Available [facility] ([facility]) [address] [facility], [place], [address], 07/03/2024 10:06:53 07/01/1907/03/2024 URINE CULTU RE, UROLO [...] thopr im/Daily lfa S Not Available [facility] ([facility]) [address] [facility], [place], [address], 07/03/2024 10:06:53 Result Notes None recorded. Medical [...] % 94 % 163/83 mm[Hg] Not Available [facility] 5 18:43:58 Date Recorded Oxygen saturation Oxygen saturation in Arterial blood by Pulse oximetry Respiratory rate Body weight Body height Body temperature Heart rate Systolic And Diastolic Provider Name and Address Organization Details Last Updated DateTime 5 100 % 100 % 16 /min 87066.3 52 g 167.64 cm 98.3 [degF] 110 /min 150/82 mm[Hg] Not Available [facility] [employer] 5 10:41:41 Date Recorded Respiratory rate Heart rate Oxygen saturation Oxygen saturation in Arterial blood by Pulse oximetry Body temperature Systolic And Diastolic Provider Name and Address Organization Details Last Updated DateTime 4 20 /min 78 /min 98 % 98 % 97.3 [degF] 130/80 mm[Hg] Not Available [facility] [employer] 4 15:05:47 Date Recorded Body height Body weight Respiratory rate Body temperature Oxygen saturation Oxygen saturation in Arterial blood by Pulse oximetry Heart rate Systolic And Diastolic Provider Name and Address Organization Details Last Updated DateTime 4 162.56 cm 29690.6 g 14 /min 97.4 [degF] 97 % 97 % 106 /min 136/72 mm[Hg] Not Available [facility] [employer] 4 13:49:07 Social History None recorded. Functional Status None recorded. Mental Status None recorded. Family History Nothing Reported. Medical History No medical history recorded. Gynecological HistoryNo gynecological history recorded. Obstetrics History GPAL:G 0 P 0 0 0 0 Past Encounters Encounter ID Performer Location Encounter Start Date Encounter Closed Date Diagnosis/Indication Diagnosis SNOMED-CT Code Diagnosis ICD10 Code Diagnosis Note [id number] Katharina Richmond MD [address] [address] 10/19/2022 20:51:28 10/19/2022 23:56:47 Chronic neck pain 1282463655 107 M54.2 [id number] José Miguel Corbett MD [address] [address] 11/04/2022 13:57:27 11/07/2022 11:39:33 Vaginitis 40572692 N76.0 This 67-year-ol d female with a history of recurrent UTIs and vaginitis called [facility] darryn of dysuria and vaginal irritation . Her U/A was negative. I suggested that she use her usual vaginitis cream and follow-up with her PCP. The patient agreed with this plan. [id number] Katharina Richmond MD [address] [address] 12/30/2022 17:02:43 01/02/2023 13:20:44 Urine: dark/concentrated [id number] R82.998 [id number] Arcelia Reyes MD [address] [address] 12/31/2022 14:38:06 01/02/2023 14:30:37 Urinary symptoms 365313836 R39.9 67 year old female who is nonverbal, being evaluated for foul smelling urine without any other symptoms. Patient was seen yesterday by [facility] - plan was to return to today to collect a urine sample. Family reports patient's previous UTI's have presented this way. Exam notable for normal vital signs. Presentati on consistent with foul smelling urine, possibly due to simple cystitis. Urine culture and urinalysis sent to lab. I have reviewed and agree with the assessment and plan as documented by the career services coordinator. I provided real-time medical direction for this encounter and was immediatel y available to provide additional phone-base d assistance as needed. We discussed the diagnostic uncertaint y of home visits and associated risks. We discussed the need to seek care urgently/e mergently in the setting of any new or worsening symptoms. [id number] José Miguel Corbett MD [facility] - [address] [address] 01/24/2023 12:52:34 01/25/2023 10:24:39 Blood in urine 30854623 R31.9 This 67-year-ol d female who is incontinen t had a recent UTI. She was noted to have some blood in her underwear three days ago. She was unable to give a U/A today. I recommende d that they leave a container for a U/C to be sent to [facility]. She will follow up with her PCP. The patient agreed with this plan. [id number] MONROE TAYLOR MD [facility] - [address] [address] 07/14/2023 14:34:31 07/14/2023 21:27:46 Seizure disorder 080498042 G40.909 [id number] Erich Gutierrez MD [facility] - [address] [address] 08/04/2023 21:10:48 08/06/2023 00:44:19 Wheezing 14346118 R06.2 Viral uppe r respiratory tract infection 094167909 J06.9 [id number] Katharina Richmond MD [address] [address] 09/14/2023 15:55:52 09/14/2023 16:30:24 Essential hypertension 68043573 I10 [id number] Neftali Aguero MD [facility] [address] [place] [address] 0 10/01/2023 17:36:22 10/01/2023 17:42:11 [id number] Neftali Aguero MD [facility] [address] [place] [address] 0 10/26/2023 14:58:04 10/26/2023 22:14:03 Pain of left hip joint [id number] 69788 M25.552 [id number] Katharina Richmond MD [facility] [address] [place] [address] 0 01/24/2024 13:43:05 01/25/2024 08:56:21 Irritant contact dermatitis caused by contact with urine and/or feces 375110673 L24.A2 [id number] Emerald Louise MD [facility] [address] [place] [address] 0 05/25/2024 17:51:13 05/26/2024 23:10:51 Altered mental status 054858062 R41.82 Muscle weakness 04515034 R53.1 Weakness o f face muscles 61317303 R29.810 [id number] GERALDO MCGRATH MD [facility] [address] [place] [address] 0 06/30/2024 10:41:39 06/30/2024 17:51:11 Confusional state 206854376 R41.0 Acute urin cortney tract infection 007498580 N39.0 Health Concerns Section Related Observation LastModified by Organization Detai ls LastModified Time None Recorded Concern Status LastModified by Organization Details LastModified Time None Recorded Advance Directives Directive None Recorded Payers Insurance Date Sequence Insurance Name Policy Number Policy Bruno Covered Member ID Bruno Member ID Guarantor Name 06/30/2024 1 [facility] - DOS ON OR AFTER 2022 - DUAL ELIGIBLE - FDC OPTIONS AND ONE CARE (MEDICARE REPLACEMENT/ADV ANTAGE - HMO) Juani Ferro [id number] Juani Ferro Notes Date Note Type Note Provider Name and Address Organization Details Recorded Time 10/01/2023 text/html CRC Nurse Triage Notes (Niels Kothari): Reason For Request: Pt's daughter reporting shakes, some lethargy not as responsive, high BP this morning 196/110->188/106 now Chief Complaints: Weakness/Lethargy, Hypertension PMH: Hypertension, Neurologic (E.G. ALS/MS) Allergies: No Known Comments: Firer [employer] verified the member's name//address and phone number. [...] .................... .................... .................... .................... .................... .................... . Surgical Garment Assembler Note From Toro Tolbert: Upon arrival, [place] [facility] and [facility] were on scene and treating the patient. No patient contact was made. Dr. Aguero was contacted by Phone and advised of this outcome. .................... .................... .................... .................... .................... .................... .................... . Disposition: Unfulfilled Neftali Aguero MD [address] [facility], [place], [address], BRADLEY Immanuel [employer] HAILY 10/01/2023 17:42:10 10/26/2023 text/html CRC Nurse [...] Hypertension, Neurologic (E.G. ALS/MS) Allergies: Unknown Comments: [employer] verified the member's name//address and phone number. [...] .................... .................... .................... .................... .................... .................... . Surgical Garment Assembler Note From Darrion Piedra: Dispatched to 81 y/o female. Upon arrival to pt residence providers was let into residence by EQUITY DIRECTOR directing providers to pt side. Pt found somnolent on recliner, CAOX4 when roused, airway open and patent, no distress noted. EMS obtained vital signs as noted. EQUITY DIRECTOR contacted pt daughter who spoke to [...] with no pain on palpation. Providers contacted [facility] relaying information learned from daughter. requested pt obtain 100mg Tylenol three times a day PO, and if pt has difficulty swallowing to crush pills or give liquid Tylenol. [facility] also emphasized the need for pt to go to PCP appointment on Monday. No other orders given for providers, providers relayed information to daughter and EQUITY DIRECTOR, then left the residence, returning to service. All times approximate. .................... .................... .................... .................... .................... .................... .................... . Disposition: Fulfilled Neftali Aguero MD [address] [facility], [place], [address], [facility] [employer] 10/26/2023 15:49:38 01/24/2024 text/html CRC Nurse Triage Notes (Simi Chun): Reason For Request: Patient is lethargic bp 125/86. Slow to move, doesn't feel well. Chief Complaints: Fatigue, Weakness PMH: Hypertension, Epilepsy/Seizure Disorder, Cancer, Transient Ischemic Attack (TIA) Comments: Daughter reports patient is weak, lethargic, not talking much today. Urine does have a slight odor per EQUITY DIRECTOR. No resp symptoms. Not complaining of any pain. BP 125/86. Bowel movements every other day. Unknown PO intake recently. No known seizure activity. Education provided on the response time and the member was advised to monitor reported s/s and seek emergency treatment if needed. Surgical Garment Assembler Organization Information for Yamil Kingston [employer] Legal Name: [facility] Transportation Address: [address] [place] [address], [place] [address], Power Plant Engineer: Harvinder Ortega MD CLIA No.: [id number] Surgical Garment Assembler POC Test Results from Yamil Kingston [facility] (13:57:46) pH: 7.399 pH units pCO2: 45 mmHg pO2: 63.8 mmHg Na: 142 mmol/L K: 3.8 mmol/L iCa: 1.21 mmol/L Cl: 105 mmol/L TCO2: 28.0 mEq/L Hct: 42 % Hb: 14.4 g/dL Glu: 138 mg/dL Lac: 1.45 mmol/L Cr: 0.66 mg/dL BUN: 11 mg/dL A .................... .................... .................... .................... .................... .................... .................... . Surgical Garment Assembler Note From Yamil Kingston: Patient alert and [...] Unable to obtain clean urine sample. Despite EQUITY DIRECTOR assistance sample contaminated with feces.Epoc to [facility]. Patient negative for Covid and flu via rapid POC.[facility] advises patient to follow up with [facility] or PCP if symptoms persist to obtain urine sample. Red flags and patient education discussed. Caregiver demonstrates understanding of care and plan. .................... .................... .................... .................... .................... .................... .................... . [facility] Consulted: Katharina Richmond .................... .................... .................... .................... .................... .................... .................... . Disposition: Murali Richmond MD [address] [facility], [place], [address], [facility] 01/24/2024 20:39:01 05/25/2024 text/html CRC Nurse Triage [...] falls or trauma. When asked, daughter reports long term care administrator forgot to give patient her keppra this morning, and wonder if she had an unwitnessed seizure. Patient is alert. RED flags discussed, daughter verbalized understanding. She would like mother assessed. .................... .................... .................... .................... .................... .................... .................... . Surgical Garment Assembler Note From Tony Page: Dispatched to the [...] a walker normally until 1529 when leaving mosque. Patient was brought home by family, and she developed a tremor. Patient was assessed for stroke as soon as facial droop was recognized and [facility] and [facility] were called so pt could go to the hospital for scans as quickly as possible. Pt was unable to do most of the fast exam, with facial droop, left sided weakness in application counselor strength, and left arm drift when holding [...] .................... .................... .................... .................... .................... .................... . [facility] Consulted: Emerald Louise .................... .................... .................... .................... .................... .................... .................... . Disposition: Murali Louise MD [address] [facility],[address], [place], [address], [employer] 05/25/2024 18:48:50 06/30/2024 text/html CRC Nurse Triage [...] signs of when to seek emergency care. Surgical Garment Assembler Organization Information for [employer] Legal Name: [employer] Address: [address] [place] [address], Power Plant Engineer: Drew Gross MD CLIA No.: [id number] Surgical Garment Assembler POC Test Results from [employer] Urine Dipstick (11:37:44) Urine leukocytes: 125++ ROSE MARY Urine nitrites: + NIT Urine urobilinogen: 0.2 URO Urine protein: 30+ PRO Urine pH: 6.0 pH Urine blood: 50 BLO Urine specific gravity: 1.020 SG Urine ketones: 5+- KET Urine bilirubin: - STEPHANIE Urine glucose: - GLU .................... .................... .................... .................... .................... .................... .................... . Surgical Garment Assembler Note From Robert Johnson: YOHANA makes pt [...] argue and speaks about being late for mosque, however daughter confirms these things are part [...] and is unable to provide a sample. [facility] contacts [facility] and asks to perform a straight cath and [facility] approves. Pt walks w/ her walker to [...] performed and results are consistent w/ UTI. [facility] contacts [facility] and discusses the above. [facility] orders 500mg cephalexin PO for pt and calls in a course to pt's pharmacy. [facility] administers 500mg x1 tablet PO to pt. [facility] informs of warning signs of when to seek emergency care. Pt and thank DE for coming. [facility] is clear. Report completed by THONG Johnson [id number]. [facility] Lab Orders: urinalysis, dipstick: Performed culture, urine: Performed [facility] Medication Orders: cephalexin 500 mg capsule: Administered .................... .................... .................... .................... .................... .................... .................... . [facility] Consulted: Geraldo Mcgrath .................... .................... .................... .................... .................... .................... .................... . Disposition: Fulfilled GERALDO MCGRATH MD [address] [facility] [facility], [place], [address], BR[facility] - HAILY AYALA 06/30/2024 12:44:33 OBGyn Episode No OBEpisode recorded.
--- OUTSIDE RECORDS SUMMARY | 2024-09-03 13:16 | XMS_ITS | Clinical Summary ---
Author Organization [employer] Address [address] [address] [place] [address] Care Team Providers Care Circuit Court Magistrate Name Role Phone Unavailable Primary Care Provider [...]
== END 2024-09-03 12:30 | disposition home or self-care (01) ==
LOC: HO.HMCFM 11:58
PROVIDERS: PCP Nurse Practitioner Family; Visit Provider Nurse Practitioner Family
DX: I10 Essential (primary) hypertension (principal)

== ENCOUNTER → 2024-09-03 11:57 | Outpatient (BNVA) | payer OTHER, SELFPAY | PROVIDERS: PCP Nurse Practitioner Family; Visit Provider Nurse Practitioner Family | DX: I10 Essential (primary) hypertension (principal) | CPT/HCPCS: 99212 ==